=== PATIENT | male | born 1950 | race Caucasian/White ===

== ENCOUNTER 2020-10-27 14:22 | Emergency (ER) | payer OTHER ==
--- OUTSIDE RECORDS SUMMARY | 2020-10-27 14:26 | XMS REPORT | Continuity of Care Document ---
:1950 Author Organization [facility] t Address [address] [place] [address] Care Team Providers Name Role Phone Campbell SOTO, Lainey Primary Care Physician Anderson MONTENEGRO Attending Clinician Unavailable Art Dukes MA Attending Clinician Unavailable Carolynn SOTO Attending Clinician Michoacano SOTO C. Attending Clinician Travis Salas Attending Clinician Dagmar SOTO Attending Clinician Vanessa XIONG Attending Clinician Unavailable Kimberly SOTO, P. Attending Clinician Astrid SOTO Attending Clinician Debi CROCKETT Attending Clinician Avtar SOTO Attending Clinician Isac MONTENEGRO Attending Clinician Unavailable VINCE Attending Clinician Unavailable HERRERA Attending Clinician Unavailable Attending Clinician Unavailable PROSPER Attending Clinician Unavailable Ashish Attending Clinician CAROLYNN Admitting Clinician Unavailable Admitting Clinician Unavailable PROSPER Admitting Clinician Unavailable Payers Payer Name Policy Type Policy Effective Date Expiration Source Number Date CIGNA [id number] 2020 [place] [facility] 00:00:[address] [facility] [id number] 2020-Pr esentHMO Problems Condition Condition Condition Status Onset Resolution Last Treating Co mments Source Name Details Category Date Date Treatment Clinician Date IVC IVC Disease Active Overview: [place] (inferior (inferior 3-12 Formattin M ethodi vena cava vena cava 00:00: g of this s t obstructio obstructio 00 note n) n) might be different from the original. Added automatic ally from request for surgery [id number] Leg edema Leg edema Disease Active Overview: [place] 3-12 Formattin Methodi 00:00: g of this st 00 note might be different from the original. Added automatic ally from request for surgery [id number] Vena cava Vena cava Disease Active 2018-07 Jorge ston obstructio obstructio 2-16 Me thodi n, n, 00:00: st inferior inferior 00 Vena cava, Vena cava, Disease Active 2018-07 [place] inferior, inferior, 2-09 Meth hiren obstructio obstructio 00:00: st n syndrome n syndrome 00 Acute deep Acute deep Disease Active 2018-07 Overview : [place] vein vein -08 Formattin Methodi thrombosis thrombosis 00:00: g of this st (DVT) of (DVT) of 00 note femoral femoral might be vein of vein of different right right from the lower lower original. extremity extremity Added automatic ally from request for surgery [id number] DVT (deep DVT (deep Disease Active Jorge ston venous venous 04-11 Methodi thrombosis thrombosis 00:00: st ) ) 00 Urinary Urinary Disease Active 2017-07 [place] tract tract 08-17 Methodi infection infection 00:00: st associated associated 00 with with indwelling indwelling urethral urethral catheter catheter Asthma Asthma Disease Active 2017-07 [place] 08-10 Methodi 00:00: st 00 DM DM Disease Active 2016-07 [place] (diabetes (diabetes 0-19 Meth hiren mellitus) mellitus) 00:00: st 00 Venous Venous Disease Active 2016-07 Last [place] insufficie insufficie 0-19 Assessmen Methodi ncy ncy 00:00: t & Plan: st 00 Formattin g of this note might be different from the original. Patient with symptomat ic venous insuffici ency. We discussed the etiology of venous disease in terms of obstructi on and reflux. We used a wall anatomica l chart to explain the various venous segments of involveme nt. The normal venous function and disorders of valvular reflux was discussed as well. Treatment options including venous stenting or reconstru ction, venous ablation vs. stripping , phlebecto mies, sclerothe rapy and compressi on treatment were all discussed . We discussed problems with persisten t or recurrent symptoms. Risks including bleeding, DVT, nerve injury, infection , hematomas , and scarring we all covered.D uplex reviewed by me shows valvular reflux of R CFV, femoral, small saphenous , and great saphenous (above and below knee) veins. ABIs and TBIs are WNL.No intervent ion needed at this time. Plan to resume knee-high compressi on stockings . Refer to Dr. Henson for RLE numbness and paraesthe gary.RTC prn. Benign Benign Disease Active [place] nodular nodular 12-26 Methodi prostatic prostatic 00:00: st hyperplasi hyperplasi 00 a with a with lower lower urinary urinary tract tract symptoms symptoms Benign Benign Disease Active [place] non-nodula non-nodula 12-18 Vt thodi r r 00:00: st prostatic prostatic 00 hyperplasi hyperplasi a with a with lower lower urinary urinary tract tract symptoms symptoms Low back Problem Active 2009-072017-07-27 Mem oria pain 2-14 02:55:46 l (disorder) Low back 00:00: He rmann pain 00 (disorder) Active 07/02/2010 Problem 07/27/2017 Data migrated from [facility] on 03/13/15. [facility] Lumbar Problem Active 2009-072017-07-27 Memor ia radiculopa 2-14 02:55:46 l thy Lumbar 00:00: [place] (disorder) radiculopa 00 thy (disorder) Active 07/02/2010 Problem 07/27/2017 Data migrated from [facility] on 03/13/15. [facility] Spinal Problem Active 2009-072017-07-27 Memor ia stenosis 2-14 02:55:46 l of lumbar Spinal 00:00: Tisha nn region stenosis 00 (disorder) of lumbar region (disorder) Active 07/02/2010 Problem 07/27/2017 [facility] 03[facility]13[facility]15. [facility] Numbness Problem Active 2017-07-27 Mem oria of lower 02:55:46 l limb Numbness Rudy n (finding) of lower limb (finding) Active Problem 07/27/2017 [facility] Simple Problem Active 2017-07-27 Memor ia obesity 02:55:46 l (disorder) Simple Herm antony obesity (disorder) Active Problem 07/27/2017 [facility] History of Past Illness Condition Condition Condition Status Onset Resolution Last Treating Co mments Source Name Details Category Date Date Treatment Clinician Date Other Problem 2017-04-09 2017-04-09 M emoria specified 04-06 05:11:23 05:11:23 l soft Other 05:00: [place] tissue specified 00 disorders soft tissue disorders 04/06/2017 04/09/2017 [facility] Other Problem 2017-04-09 2017-04-09 M emoria specified 04-06 05:11:23 05:11:23 l joint Other 05:00: [place] disorders, specified 00 right knee joint disorders, right knee 04/06/2017 04/09/2017 [facility] Allergies, Adverse Reactions, Alerts Allergy Allergy Status Severity Reaction(s) Onset Inactive Treating Comm ents Source Name Type Date Date Clinician No Known DA Active U 2019-0 [facility] 12-[facility] s 00:00: [address] No Known DA Active U 2018-0 [facility] Allergie 11-25 s 00:00: [address] No Known DA Active U 2018-0 [facility] Allergie 11-23 s 00:00: [address] No Known DA Active U 2007-0 [facility] Contrast 01-04 [place] Allerg[facility] 00:00: [address] No Known DA Active U 2007-0 [facility] Drug 01-04 [place] Allerg[place] 00:00: [address] No Known DA Active U 2007-0 [facility] Food - [place] Allerg[place] 00:00: [address] No Known DA Active U 2007-0 [facility] Other 01-04 [place] Allergie 00:00: [address] Family History Family Member Diagnosis Comments Start Date Stop Date Source Natural father Old age [place] [facility] Natural mother Old age [facility] Social History Social Habit Start Date Stop Date Quantity Comments Source History of tobacco Cigarette Smoker [place] use [facility] History [facility] Alcohol Std Drinks Method ist History [facility] Alcohol Binge [facility] Exposure to Not sure [place] SARS-CoV-2 (event) Method ist Cigarettes smoked 2020-10-18 2020-10-18 [place] current (pack per 00:00:00 00:00:[address] day) - Reported Cigarette 2020-10-18 2020-10-18 [place] pack-years 00:00:00 00:00:00 [facility] Tobacco use and 2020-10-18 2020-10-18 Never used [place] exposure 00:00:00 00:00:00 [facility] Alcohol intake 2020-10-18 2020-10-18 Lifetime [place] 00:00:00 00:00:00 non-drinker [facility] (finding) History [facility] 2019-05-30 2019-05-30 1 [place] Alcohol Frequency 00:00:00 00:00:[address] Tobacco Comment 2019-05-30 2019-05-30 quit 30 yrs ago [place] 00:00:00 00:00:00 [facility] Social History 2017-04-06 2017-04-06 [facility] 19:32:49 19:32:49 Sex Ass[birth year] At [birth year] [place] 00:00:00 00:00:00 [facility] Smoking Status Start Date Stop Date Source Former smoker 2020-10-18 00:00:00 2020-10-18 00:00:00 [place] [facility] Medications Ordered Filled Start Stop Current Ordering Indication Dosage Frequency Signature Comments Components Source Medication Medication Date Date Medication? Clinician (SIG) Name Name pantoprazol Yes 40mg QD Take 1 [place] 4-06 tablet (40 Methodi (Protonix) 00:00: mg total) st 40 MG EC 00 by mouth tablet daily. rivaroxaban Yes 20mg Take 20 mg [place] (XARELTO) 3-25 by mouth. Metho di 20 mg 17:26: st tablet 26 acetaminoph 2020- No acute pain 1{tbl} Q4H Take 1 [place] en-codeine 3-25 04-01 tablet by Met kowalski (TYLENOL 00:00: 23:[address] WITH 00 :00 every 4 CODEINE #3) (four) 300-30 mg hours as per tablet needed for moderate pain for up to 7 days .acute pain. clopidogreL 2021- Yes 75mg QD Take 1 Jorge ston (PLAVIX) 75 3-11 03-11 tablet (75 M ethodi mg tablet 00:00: 23:59 mg total) st 00 :00 by mouth daily. mirabegron Yes 50mg QD Take 1 [place] (Myrbetriq) 2-23 tablet (50 Me thodi 50 mg 00:00: mg total) st tablet 00 by mouth extended daily. release 24 hr oxybutynin Yes 5mg QD Take 1 [place] (DITROPAN) 2-23 tablet (5 Meth hiren 5 MG tablet 00:00: mg total) s t 00 by mouth daily. doxycycline 2020- No 100mg Q.5D Take 1 [place] (VIBRAMYCIN 08-21 capsule Meth hiren ) 100 MG 00:00: 23:59 ([address] capsule 00 :00 total) by mouth 2 (two) times a day for 7 days. gentamicin 2020- No [id number] Apply Osman (GARAMYCIN) 08-21 [id number] topically Methodi 0.1 % 00:00: 23:59 3D 3 (three) st ointment 00 :00 times a day for 7 days. Apply to right 5th toe ulcer tolterodine 2020- No 4mg QD Take 1 Jorge ston [place] (Detrol 02-16-12 capsule (4 Me thodi LA) 4 MG 24 00:00: 00:00 mg total) st hr capsule 00 :00 by mouth daily. mirabegron 2020- No 50mg QD Take 1 [place] (Myrbetriq) 7 03-12 tablet (50 M ethodi 50 mg 00:00: 00:00 mg total) st tablet 00 :00 by mouth extended daily. release 24 hr clopidogrel 2020- No Vena cava, 75mg QD Take 1 [place] (PLAVIX) 75 1-15 01-14 inferior, tablet (75 Methodi mg tablet 00:00: 23:59 obstruction mg total) st 00 :00 syndrome by mouth daily. oxybutynin No 5mg QD Take 1 [place] (DITROPAN) 07-26 tablet (5 Met hodi 5 MG tablet 00:00: 00:00 mg total) st 00 :00 by mouth daily. pantoprazol 40mg QD Take 1 Jorge ston e 07-22 04-06 tablet (40 Methodi (PROTONIX) 00:00: 00:00 mg total) s t 40 MG EC 00 :00 by mouth tablet daily. mupirocin 2018-07 APPLY [place] (BACTROBAN) 08-22 OINTMENT Met hodi 2 % 00:00: 00:[address] ointment 00 :00 TO AFFECTED AREA ON RIGHT FOOT TOES THREE TIMES DAILY FOR 14 DAYS acetaminoph 2018-07 No 1{tbl} Take 1 [place] en-codeine 07-23 03-12 tablet by Met hodi (TYLENOL 00:00: 00:[address] WITH 00 :00 CODEINE #3) 300-30 mg per tablet primidone No 50mg Q.5D Take 50 mg [place] (MYSOLINE) 5-18 03-25 by mouth 2 Me thodi 50 MG 00:00: 00:00 (two) st tablet 00 :00 times a day. Cephalexin Yes 500 mg = 1 M emoria 500 MG Oral 9-18 cap, PO, l Capsule 20:53: BID, X 7 Rudy n [Keflex] 00 day, # 14 cap, 0 Refill(s) Cephalexin Yes 500 mg = 1 M emoria 500 MG Oral 9-18 cap, PO, l Capsule 20:53: BID, X 7 Rudy n [Keflex] 00 day, # 14 cap, 0 Refill(s) Saline No Notes: Memoria Flush 0.9% 9-18 preservati l 19:32: ve free. Saline No Notes: Memoria Flush 0.9% 9-18 preservati l 19:32: ve free. Immunizations Ordered Immunization Filled Immunization Date Status Commen ts Source Name Name [facility] COVID-19 MRNA 2020-09-15 Completed [place] VACCINATION 00:00:00 [facility] PFIZER COVID-19 MRNA 2020-08-25 Completed [place] VACCINATION 00:00:00 [facility] FLUCELVAX QUAD PF 2019-04-18 Completed [place] 00:00:00 [facility] Pneumococcal 2019-04-18 Completed [place] Conjugate 13-Valent 00:00:00 Metho dist Vital Signs Vital Name Observation Time Observation Value Comments Source Systolic blood 2020-10-11 17:15:00 108 mm[Hg] [place] [facility] pressure Diastolic blood 2020-10-11 17:15:00 62 mm[Hg] Sadaf on [facility] pressure Heart rate 2020-10-11 17:15:00 80 /min [place] [facility] Body temperature 2020-10-11 17:15:00 36.11 Allison [place] [facility] Respiratory rate 2020-10-11 17:15:00 17 /min Brennan quintanilla [facility] Oxygen saturation in 2020-10-11 17:15:00 97 /min [place] [facility] Arterial blood by Pulse oximetry Body height 2020-10-11 09:14:00 170.2 cm [place] [facility] Body weight 2020-10-11 09:14:00 105.688 kg [place] [facility] BMI 2020-10-11 09:14:00 36.49 kg/m2 [place] [facility] Weight 2017-07-24 19:44:00 [facility] Heart Rate 2017-07-24 19:44:00 [facility] [place] Systolic (mm Hg) 2017-07-24 19:44:00 German rial [place] Diastolic (mm Hg) 2017-07-24 19:44:00 Mem orial Sg Systolic (mm Hg) 2017-04-06 21:21:00 German rial [place] Diastolic (mm Hg) 2017-04-06 21:21:00 Mem orial Sg Temperature Oral (F) 2017-04-06 21:21:00 98 F [facility] [place] Respitory Rate 2017-04-06 21:21:00 Memori al Sg Heart Rate 2017-04-06 21:21:00 [facility] [place] Height 2017-04-06 19:13:00 170.18 cm [facility] [place] BMI Calculated 2017-04-06 19:13:00 Memori al [place] Weight 2017-04-06 19:13:00 [facility] Sg Heart Rate 2017-04-06 19:13:00 [facility] [place] Respitory Rate 2017-04-06 19:13:00 Rosa garcia [place] Systolic (mm Hg) 2017-04-06 19:13:00 German thomas [place] Diastolic (mm Hg) 2017-04-06 19:13:00 Mem orial Sg Procedures Procedure Date / Time Performing Clinician Source Performed POC BLOOD GAS, ARTERIAL 2020-10-11 12:38:00 Yariel Pradhan AND LYTES CV HYBRID OR FLUOROSCOPY 2020-10-11 12:33:48 Yariel Pradhan ARTERIAL LINE 2020-10-11 12:27:06 Hitesh Ibanez [facility] CO AN ELECTIVE 2020-10-11 12:17:00 Hitesh Ibanez [facility] ENDOTRACHEAL AIRWAY VENOGRAPHY, UPPER OR LOWER 2020-10-11 12:09:00 Yariel Pradhan EXTREMITY, UNILATERAL PARTIAL THROMBOPLASTIN 2020-10-11 12:03:00 Denzel Leavitt TIME (PTT) PROTHROMBIN TIME WITH INR 2020-10-11 12:03:00 Raina Leavitt US ANKLE BRACHIAL INDEX 2020-10-11 09:41:00 Yariel Pradhan US DUPLEX ARTERIAL LOWER 2020-10-11 09:31:00 Yariel Pradhan EXTREMITY RIGHT URINE CULTURE 2020-10-08 13:37:00 Yariel Pradhan XR CHEST 2 VW 2020-10-08 13:06:00 Denzel Leavitt HC COMPLETE BLD COUNT 2020-10-08 12:35:00 Yariel Pradhan W/AUTO DIFF ESTIMATED GFR 2020-10-08 12:35:00 Yariel Pradhan TYPE AND SCREEN 2020-10-08 12:35:00 Denzel Leavitt COMPREHENSIVE METABOLIC 2020-10-08 12:35:00 Yariel Pradhan PANEL URINALYSIS SCREEN AND 2020-10-08 12:07:00 Bismuth, Yariel [place] [facility] MICROSCOPY, WITH REFLEX TO CULTURE ECG PRE/POST OP 2020-10-08 11:35:29 CarolynnYariel Osman Meth [facility]ist COVID-19 QUALITATIVE PCR 2020-10-08 11:26:00 CarolynnYarielu ston [facility] US DUPLEX VENOUS LOWER 2020-08-21 16:31:42 CarolynnYariel [place] [facility] EXTREMITY RIGHT PROSTATE SPECIFIC ANTIGEN 2020-02-14 11:21:00 EkerDanny espana [place] [facility] Plan of Care Planned Activity Planned Date Details Comments Source Future Scheduled 2021-02-17 INFLUENZA VACCINE [place] [facility] Test 00:00:00 [code = INFLUENZA VACCINE] Future Scheduled 2019-06-13 65+ PNEUMOCOCCAL [place] [facility] Test 00:00:00 VACCINE (1 of 2 - PPSV23) [code = 65+ PNEUMOCOCCAL VACCINE (1 of 2 - PPSV23)] Future Scheduled 2000 COLONOSCOPY SCREENING [place] [facility] Test 00:00:00 [code = COLONOSCOPY SCREENING] Future Scheduled 2000 SHINGLES VACCINES (#1) [place] [facility] Test 00:00:00 [code = SHINGLES VACCINES (#1)] Future Scheduled 1968 Hepatitis C screening [place] [facility] Test 00:00:00 (procedure) [code = 881831891] Future Scheduled 1960 DIABETES: RETINAL EYE [place] [facility] Test 00:00:00 EXAM [code = DIABETES: RETINAL EYE EXAM] Future Scheduled 1960 DIABETIC FOOT EXAM [place] [facility] Test 00:00:00 [code = DIABETIC FOOT EXAM] Future Scheduled 1960 URINE MICROALBUMIN [place] [facility] Test 00:00:00 [code = URINE MICROALBUMIN] Encounters Start End Encounter Admission Attending Care Care Encounter Source Date/Time Date/Time Type Type Clinicians Facility Department ID 2018-11-23 Outpatient [facility] CAR [id number] [facility] 08:26:33 2020-10-11 2020-10-11 Outpatient JOSE [facility] [id number] [place] 00:00:00 00:00:00 YARIEL [address] 2020-10-11 2020-10-11 Outpatient MAGANRUST [facility] [id number] [place] 00:00:00 00:00:00 YARIEL 124 Method i 2020-10-11 2020-10-11 Outpatient BISMUTH, [facility] [id number] [place] 00:00:00 00:00:00 YARIEL 973 Method i 2020-10-11 2020-10-11 Outpatient BISMUTH, [facility] [id number] [place] 00:00:00 00:00:00 YARIEL 440 Method i 2020-10-08 2020-10-08 Outpatient BISMUTH, [facility] [id number] [place] 00:00:00 00:00:00 YARIEL 203 Method i 2020-10-08 2020-10-08 Outpatient BISMUTH, [facility] [id number] [place] 00:00:00 00:00:00 YARIEL 403 Method i 2020-10-08 2020-10-08 Outpatient ATHANASSIOU [facility] [id number] [place] 00:00:00 00:00:00 , DENZEL 645 Meth hiren 2020-09-27 2020-09-27 Outpatient BISMUTH, [facility] [id number] [place] 00:00:00 00:00:00 YARIEL 970 Method i 2020-09-15 2020-09-15 Outpatient ROBBEN, [facility] H [id number] [place] 00:00:00 00:00:00 PEEWEE 023 Me thodi 2020-09-11 2020-09-11 Outpatient EKERUO, [facility] H [id number] [place] 00:00:00 00:00:00 DANNY 345 Method i 2020-08-30 2020-08-30 Outpatient BISMUTH, [facility] [id number] [place] 00:00:00 00:00:00 YARIEL 230 Method i 2020-08-25 2020-08-25 Outpatient [facility] [id number] [place] 00:00:00 00:00:00 619 Method i 2020-08-21 2020-08-21 Outpatient [facility] [id number] [place] 00:00:00 00:00:00 967 Method i 2020-08-21 2020-08-21 Outpatient [facility] [id number] [place] 00:00:00 00:00:00 EMDUNDO POST 164 Me thodi 2020-07-15 2020-07-15 Emergency Nova, [facility] [id number] 18:28:00 23:48:00 Bong Johnston [id number] [place] [id number] [place] [id number] 2020-02-14 2020-02-14 Outpatient EKERUO, [facility] [id number] [place] 00:00:00 00:00:00 DANNY 244 Method i 2020-02-14 2020-02-14 Outpatient EKERUO, [facility] [id number] [place] 00:00:00 00:00:00 DANNY 423 Method i 2020-02-09 2020-02-09 Outpatient [facility] CAR [id number] [facility] 11:27:00 11:27:00 2019-09-27 2019-09-27 Outpatient IMPERIAL-AU [facility] [id number] [place] 00:00:00 00:00:00 EDMUNDO POST 651 Me thodi 2019-09-21 2019-09-21 Outpatient IMPERIAL-AU [facility] [id number] [place] 00:00:00 00:00:00 EDMUNDO POST 589 Me thodi 2019-09-21 2019-09-21 Outpatient IMPERIAL-AU [facility] [id number] [place] 00:00:00 00:00:00 EDMUNDO POST 592 Me thodi 2019-08-11 2019-08-11 Outpatient [facility] CAR [id number] [facility] 11:10:00 11:10:00 2019-07-08 2019-07-09 Emergency KORTNEY [facility] [id number] [place] 00:00:00 00:00:00 847 Method i 2019-07-04 2019-07-05 Outpatient BISMUTH, [facility] [id number] [place] 00:00:00 00:00:00 YARIEL 266 Method i 2019-05-31 2019-05-31 Outpatient BISMUTH, [facility] [id number] [place] 00:00:00 00:00:00 YARIEL 271 Method i 2019-05-30 2019-05-30 Outpatient ATHANASSIOU [facility] [id number] [place] 00:00:00 00:00:00 , DENZEL 044 Meth hiren 2019-05-05 2019-05-05 Outpatient MH CAR [id number] [facility] 10:37:00 10:37:00 2019-05-03 2019-05-04 Emergency SILVERMAN, [facility] [id number] [place] 00:00:00 00:00:00 768 Method i 2019-04-22 2019-04-27 Inpatient ECHEVERRIA, [facility] [id number] [place] 00:00:00 00:00:00 XENA 995 Method i 2019-04-11 2019-04-18 Inpatient ISHFAQ, [facility] [id number] [place] 00:00:00 00:00:00 ARAMBULA 756 Metho di 2018-11-18 2018-11-18 Outpatient [facility] CAR [id number] [facility] 08:52:00 08:52:00 2017-07-24 2017-07-24 Outpatient MHMISCHER MHMISCHER [id number] 13:00:00 23:59:59 2017-07-24 2017-07-24 Outpatient MHMISCHER MHMISCHER [id number] 13:00:00 23:59:59 2017-07-22 2017-07-23 Outpatient MHMISCHER MHMISCHER [id number] 11:58:00 23:59:59 2017-07-22 2017-07-23 Outpatient MHMISCHER MHMISCHER [id number] 11:58:00 23:59:59 2017-04-06 2017-04-06 Outpatient Ashish [id number] 14:12:00 16:32:00 Rogerio [id number] 5.120 2017-04-06 2017-04-06 Outpatient Ashish [id number] 14:12:00 16:32:00 Rogerio [id number] 5.120 Results Test Test Test Results Result Source Description Time Comments Comments Hybrid or 2020-09- See operative report for [facility] fluoroscopy 25 the same day [facility] 12:33:49 Arterial line 2020-09- Hitesh Ibanez CRNA [place] [id number] 10/11/2020 12:28 Methodis t 12:27:06 PMArterial line Performed by: anesthesiologistAnesthesi ologist: Tal Ríos Jr., SANDYuthorized by: Tal Ríos Jr., MD Pre-procedure: patient identified, IV checked, site and side verified, risks and benefits discussed, procedure verified, surgical consent complete, patient position confirmed, monitors and equipment checked, pre-op evaluation complete and timeout performed prior to procedure MSBT: antiseptic used, all elements of maximal sterile barrier technique followed, hand hygiene performed, cap/gown used by other personnel and solutions labeled Indications: Indications: multiple ABGs and hemodynamic monitoring Anesthesia: Anesthesia: GeneralProcedure Details: Arterial Line placement: Placed post induction Line placement site: RadialLine placement side: Right Arterial line gauge: 20 GNumber of attempts: 1Ultrasound guidance used: No Post-procedure: Post-procedure: Sterile dressing applied Post procedure circulation, sensation, movement: Normal and unchanged Patient tolerance: Patient tolerated the procedure well with no immediate complications Airway 2020-09- Hitesh Ibanez CRNA [place] [id number] 10/11/2020 12:46 PMAirway [facility] 12:17:00 Date/Time: 10/11/2020 12:17 PM Location: OR Performed by: LATA/CHERYLnesthesiologist: Tal Ríos Jr., MDResident/RECEIVER DISPATCHER/AA: Hitesh Ibanez CRNAAuthorized by: Tal Ríos Jr., MD Urgency: ElectiveDifficult Airway: No Preoxygenated with 100% O2: Yes C-spine Precautions Maintained Throughout: Yes Mask Ventilation: Assisted maskFinal Airway Type: Endotracheal airwayFinal Endotracheal Airway: ETTCuffed: Yes Technique Used: Direct laryngoscopyInsertion Site: OralBlade Type: MillerLaryngoscope Blade/Videolaryngoscope Blade Size: 2ETT Size (mm): 8.0Cuff at minimum occlusion pressure: Yes Measured from: LipsETT to Lips (cm): 22Placement Verified by: CO2 detection, direct visualization and equal breath sounds Laryngoscopic view: Grade I - full view of glottisRapid Sequence Induction (RSI): No Modified RSI: No Number of Attempts at Approach: 1 ECG Pre/Post Op 2020-10-08 19:40:58 Test Item Value Reference Range Interpretation Comme nts Ventricular rate (test code = 253) 83 Atrial rate (test code = 255) 83 CO interval (test code = 266) 180 QRSD interval (test code = 260) 106 QT interval (test code = 264) 374 QTC interval (test code = 265) 439 P axis 1 (test code = 267) 66 QRS axis 1 (test code = 268) -89 T wave axis (test code = 270) 70 EKG impression (test code = 273) Normal sinus rhythm-Left axis deviation-Pulmonary disease pattern-Abnormal ECG-In automated comparison with ECG of 30-MAY-2019 16:41,-Incomplete right bundle branch block is no longer present- [place] [facility] Chest 2 [id number] 14:03:33Hm Interface, Radiology Results Incoming - 10/08/2020 2:06 PM CDT EXAMINATION: XR CHEST 2 VWCLINICAL HISTORY: 69 years Male I87.1 Compression of vein, R60.0 Localized edema, surgeryCOMPARISON: 05/30/2019IMPRESSION:1.The cardiomediastinal silhouette is normal.2.No evidence pulmonary edema. No focal consolidations. Minimal atelectasis right lung base.3.Regional skeletal structures are diffusely osteopenic.[facility]-ZO57CBYTXwkckgo MethodistProstate specific [id number] 09:23:00 Test Item Value Reference Range Interpretation Comments PSA (test 0.5 ng/mL See_Comment The total PSA v alue code = from this assay system 2857-1) is standardized against the WHO standar d. The test result janet l be approximately 2 0% lower when compared t o the equimolar-stand ardized total PSA ([employer] [facility]). Kristofer rison of serial PSA resu lts should be inter preted with this fact in mind. This test was p erformed using the [employer] chemiluminescen t method. Values obtained from different assay methods cannot be usedinterchange ably. PSA levels, reg ardless ofvalue, should not be interpreted as absoluteevidenc e of the presence or abs ence of disease. [Auto mated message] The sy stem which generated this result transmit caio reference range : < OR = 4.0. The refere nce range was not u sed to interpret this result as normal/abnor mal. RAC (test Performing code = RAC) Organization Information: Site ID: [id number] [place] [facility] Address: [address] [place] [place] [id number] Director: Alfonso Strange [place] MethodistCOMPREHENSIVE METABOLIC [id number] 13:44:00 Test Item Value Reference Range Interpretation Comments SODIUM (test code = NA) 142 MMOL/L 137-145 N POTASSIUM (test code = 4.3 MMOL/L 3.5-5.1 N K) CHLORIDE (test code = 103 MMOL/L 98-107 N CL) CARBON DIOXIDE (test 30 MMOL/L 22-30 N code = CO2) GLUCOSE (test code = 93 MG/DL 74-106 N GLU) BLOOD UREA NITROGEN 15 MG/DL 9-20 N (test code = BUN) GLOMERULAR FILTRATION > 60 Report ing units: RATE (test code = GFR) ml/mi n/1.73 m2 (Modified MDRD Formula)Referen ce Range: > or = 6 0 ml/min/1.73 m2 CREATININE (test code = 0.70 MG/DL 0.66-1.25 N CREAT) TOTAL PROTEIN (test 7.5 G/DL 6.2-7.6 N code = PROT) ALBUMIN (test code = 4.0 G/DL 3.5-5.0 N ALB) CALCIUM (test code = 9.6 MG/DL 8.4-10.2 N CA) BILIRUBIN TOTAL (test 0.3 MG/DL 0.2-1.3 N code = BILT) SGOT/AST (test code = 22 UNITS/L 17-59 N AST) SGPT/ALT (test code = 19 UNITS/L 21-72 L ALT) ALKALINE PHOSPHATASE 83 UNITS/L 38-126 N (test code = ALKP) PROTHROMBIN [id number] 13:32:00 Test Item Value Reference Range Interpretation Comments PROTHROMBIN TIME 10.1 SECONDS 9.6-11.6 N PATIENT (test code = PTP) INTERNATIONAL NORMAL 1.0 0.8-1.1 N The INR is to be RATIO (test code = used only for INR) monitoring oral anticoagulantth erap y. INDICATION I NR VALUE ---- ---- ---- -------1. Prophylaxis, de ep venous thrombos is, including hig h risk surgery. 2.0 - 3.0 2. Prophylaxis, de ep venous thrombos is, hip surgery, treatment for d eep venous thrombosis or pulmonary prevention of systemic emboli sm in patients wit h valvular heart disease, atrial fibrillation, tissue heart va lve, or acute myocar dial infarction. 2.0 - 3 .0 3. Mechanical prosthesis hear t valves, recurrent syste tommy embolism. 3.0 - 4.5 PTT [id number] 13:32:00 Test Item Value Reference Range Interpretation Comments PTT ACTIVATED (test code = APTT) 27.1 SECONDS 22.0-33.0 N CBC W/AUTO [id number] 13:22:00 Test Item Value Reference Range Interpretation Comments WHITE BLOOD CELL (test code = 8.0 K/MM3 3.8-9.8 N WBC) RED BLOOD CELL (test code = 4.94 M/MM3 3.95-5.67 N RBC) HEMOGLOBIN (test code = HGB) 13.7 G/DL 12.4-16.7 N HEMATOCRIT (test code = HCT) 43.6 % 35.9-49.5 N MEAN CELL VOLUME (test code = 88 fL 81.7-96.1 N MCV) MEAN CELL HGB (test code = MCH) 27.7 pg 27.6-33.2 N MEAN CELL HGB CONCETRATION 31.4 % 32.9-35.5 L (test code = MCHC) RED CELL DISTRIBUTION WIDTH 17.0 % 12.1-15.2 H (test code = RDW) PLATELET COUNT (test code = 346 K/MM3 129-368 N PLT) MEAN PLATELET VOLUME (test code 8.8 fl 7.4-10.4 N = MPV) NEUTROPHIL % (test code = NT%) 71.4 % 43-75 N IMMATURE GRANULOCYTE % (test 0.5 % 0.0-2.0 N code = IG%) LYMPHOCYTE % (test code = LY%) 15.0 % 14-44 N MONOCYTE % (test code = MO%) 9.5 % 4-13 N EOSINOPHIL % (test code = EO%) 3.2 % 0-6 N BASOPHIL % (test code = BA%) 0.4 % 0-2 N NUCLEATED RBC % (test code = 0.0 % 0-1.0 N NRBC%) NEUTROPHIL # (test code = NT#) 5.74 K/mm3 2.0-7.6 N IMMATURE GRANULOCYTE # (test 0.04 x10 3/uL 0-0.03 H code = IG#) LYMPHOCYTE # (test code = LY#) 1.21 K/mm3 1.0-3.8 N MONOCYTE # (test code = MO#) 0.76 K/mm3 0.1-0.8 N EOSINOPHIL # (test code = EO#) 0.26 K/mm3 0.0-0.2 H BASOPHIL # (test code = BA#) 0.03 K/mm3 0.0-0.2 N NUCLEATED RBC # (test code = 0.00 K/mm3 0.0-0.1 N NRBC#) PROTHROMBIN [id number] 16:01:00 Test Item Value Reference Range Interpretation Comments PROTHROMBIN TIME 10.5 SECONDS 9.6-11.6 N PATIENT (test code = PTP) INTERNATIONAL NORMAL 1.0 0.8-1.1 N The INR is to be RATIO (test code = used only for INR) monitoring oral anticoagulantth erap y. INDICATION I NR VALUE ---- ---- ---- -------1. Prophylaxis, de ep venous thrombos is, including hig h risk surgery. 2.0 - 3.0 2. Prophylaxis, de ep venous thrombos is, hip surgery, treatment for d eep venous thrombosis or pulmonary prevention of systemic emboli sm in patients wit h valvular heart disease, atrial fibrillation, tissue heart va lve, or acute myocar dial infarction. 2.0 - 3 .0 3. Mechanical prosthesis hear t valves, recurrent syste tommy embolism. 3.0 - 4.5 Comments to Fabric Inspector: TAKES XARELTOPTT [id number] 16:01:00 Test Item Value Reference Range Interpretation Comments PTT ACTIVATED (test code = APTT) 30.4 SECONDS 22.0-33.0 N Comments to Fabric Inspector: TAKES XARELTOCARDIAC [id number] 19:37:00 <0.02[facility]ARDIAC [id number] 19:37:007.4[facility] CARDIAC KTNQGCG8093-30-46 19:37:71773Zjbmnypf HermannCARDIAC ZKEHVRI9047-29-00 19:37:003.4[facility]annCHEM JLVMX8730-34-14 19:37:001.1[facility]annCHEM KJAUE5964-03-68 19:37:008.3[facility]annCHEM DNHWA2577-14-42 19:37:003.6 [facility] [id number] 19:37:0021[facility]annCHEM PANEL 2017-04-06 19:37:0093[facility]annCHEM RNIYR7716-19-41 19:37:000.4[facility]annCHE[facility] MTMYU3501-43-18 19:37:00251Xxjfingj [facility]annCHEM WKPPV0953-53-53 19:37:0031[facility]annCHEM UNRLY9690-67-81 19:37:0040[facility]annCHE[facility] GZBCX3900-39-11 19:37:007.4[facility]annCHE[facility] JNOKF9094-43-28 19:37:003.8 [facility] VUCRH9712-46-19 19:37:008.9[facility]annCHEM PANEL 2017-04-06 19:37:0028[facility]annCHEM TYPKL2357-58-70 19:37:27602Jxqieyjz [facility]CHE[facility] JBOUT1731-01-82 19:37:004.3[facility]annCHE[facility] [id number] 19:37:51910Lnkurgws HermannCHEM MHWTK9168-06-99 19:37:000.80[facility]annCHEM WTCOB9486-23-76 19:37:0017[facility]annCHEM ODGFD1424-74-29 19:37:89838 [facility] PkjuufrISLPVDWZZD0742-05-86 19:37:006.5[facility]annHEMATOLOGY 2017-04-06 19:37:000.6[facility] WvunuuqTBJEUWZWDY4338-07-60 19:37:001.6[facility] KyftjxtGTGWADOCGK2925-85-68 19:37:000.3[facility] EiwincfOJIAVYQZDX2625-88-72 19:37:000.6[facility] YcxxmrjDPSDDRKAMB2083-74-96 19:37:006.1[facility] Sg LRVAAFRIVC3810-90-28 19:37:003.0[facility] UkeuzdrFSJMWVAYEH8694-79-91 19:37:000.1 [facility] UnkmnrpVIOKWQNGST4735-79-94 19:37:0018.2[facility]annHEMATOLOGY 2017-04-06 19:37:0072.1[facility] TrpjjadGHEBJLCIZN9986-69-97 19:37:00 Test Item Value Reference Range Interpretation Comments aPTT (test code = aPTT) 31.4 s 22.9-35.8 [facility] OaewhveTWHBQUFBRG2297-15-68 19:37:00 Test Item Value Reference Range Interpretation Comments PROTIME (test code = PROTIME) 12.6 s 12.0-14.7 [facility] KflnfnwIHDLSXQWRC0341-75-11 19:37:000.92[facility]annHEMATOLOGY 2017-04-06 19:37:0034.4[facility] EcasuyaLYMKNZNQII7262-83-04 19:37:00 Test Item Value Reference Range Interpretation Comments MCH (test code = MCH) 31.1 pg 27.0-31.0 [facility] EtnxteyVEBDZEBDPS3786-10-49 19:37:009.0[facility]annHEMATOLOGY 2017-04-06 19:37:005.24[facility] GycpoifCCRTLVQIQC0600-73-36 19:37:14869Tpubklwi XsqyoryBKIKYPJFON2418-89-79 19:37:0014.3[facility] WwwfsxbONZMKKRZFH4937-70-43 19:37:007.3[facility] WtreyolXZBOJIIFRY9914-03-92 19:37:0090.4[facility] AKZJAIBJIL9216-59-29 19:37:0047.4[facility] EmkobtxHYEEVHNNWY2950-64-95 19:37:00 16.3[facility]annCARDIAC YQANEOM1191-98-47 19:37:00<0.02[facility] CARDIAC CQCKIUR5908-18-67 19:37:007.4[facility]annCARDIAC UWEYEUD7468-82-65 19:37:60155Eolkumuv HermannCARDIAC ASOMAZC0964-42-85 19:37:003.4[facility] CHEM YMTRC7208-88-14 19:37:001.1[facility]annCHEM SFYBT9487-90-86 19:37:008.3 [facility]annCHE[facility] GZXAQ0088-37-75 19:37:003.6[facility]annCHEM PANEL 2017-04-06 19:37:0021[facility]annCHEM UQIBF7412-39-98 19:37:0093[facility]annCHEM BKEGO0513-79-46 19:37:000.4[facility]annCHEM JRSVW5549-64-10 19:37:84052Yjqhqyem HermannCHEM RKMFX1644-40-25 19:37:0031[facility]annCHEM PWIXB0733-81-92 19:37:0040[facility]annCHEM ZOSWL6183-47-87 19:37:007.4 [facility]annCHE[facility] DXXZO9604-36-69 19:37:003.8[facility]annCHEM PANEL 2017-04-06 19:37:008.9[facility]annCHEM JJHNE8373-49-18 19:37:0028[facility] HermannCHEM OFMEL3479-04-42 19:37:26487Lwtytyvz HermannCHEM OJBPS2372-54-19 19:37:004.3[facility]annCHEM OASTT3267-82-43 19:37:54528Wbzembtp HermannCHEM MBGAW5439-77-43 19:37:000.80[facility]annCHEM DYSUJ2559-61-46 19:37:0017 [facility]annCHE[facility] LTKNF0395-58-80 19:37:45978Kpaaipgq HermannHEMATOLOGY 2017-04-06 19:37:006.5[facility] DpppiylLWRGKJHJEC5738-92-19 19:37:000.6[facility] MtznxtkLSJFIHSXPB6902-22-75 19:37:001.6[facility] EbgpzikJQWLVAWFMO8291-60-36 19:37:000.3[facility] LdxltqeVQHKNOFPLE7869-59-51 19:37:000.6[facility] Sg EQWOSFVGSF6689-69-00 19:37:006.1[facility] JjaptukTEGOBQJCPZ7716-62-96 19:37:003.0 [facility] LfcajxvUJWYDFOVJU7782-78-93 19:37:000.1[facility]annHEMATOLOGY 2017-04-06 19:37:0018.2[facility] UoqygdvJDJWBGLSUZ1327-16-15 19:37:0072.1[facility] LtabvuuXYPOJGFQWR3386-39-39 19:37:00 Test Item Value Reference Range Interpretation Comments aPTT (test code = aPTT) 31.4 s 22.9-35.8 [facility] HicpqjqPLIJRPAEIA1962-05-60 19:37:00 Test Item Value Reference Range Interpretation Comments PROTIME (test code = PROTIME) 12.6 s 12.0-14.7 [facility] CfjvyoyGQMWQCHAEI0899-02-10 19:37:000.92[facility]annHEMATOLOGY 2017-04-06 19:37:0034.4[facility] IvkcroaJQSOXWIETT6958-72-34 19:37:00 Test Item Value Reference Range Interpretation Comments MCH (test code = MCH) 31.1 pg 27.0-31.0 [facility] CkadmbkYPNLAJHURK2776-84-24 19:37:009.0[facility] HermannHEMATOLOGY 2017-04-06 19:37:005.24[facility] YzkhtcvWLMZRBAFMV1891-34-44 19:37:18267Xpivlqrk BrjrwitTZJSFPFDXC1352-93-87 19:37:0014.3[facility] WcqfbqqQVGFBQIKOK3935-76-63 19:37:007.3[facility] QzyngnuZYKJIRKMDG6744-13-13 19:37:0090.4[facility] XGPJCTEXSF4074-33-09 19:37:0047.4[facility] XyhzzxwWVTVZUDFBP1809-47-27 19:37:00 16.3[facility]
--- NOTE | 2020-10-27 15:59 | RAD REPORT ---
EXAM DESCRIPTION: US - Extremity Venous Uni Ltd - 10/27/2020 3:47 pm CLINICAL HISTORY: s/p vascular stenting 1-2 weeks ago;Pain COMPARISON: None. TECHNIQUE: Real-time sonographic evaluation of the right lower extremity deep venous systems was per formed. FINDINGS: Normal compressibility, flow augmentation, phasic flow and spontaneous flow are identified in the right lower extremity common femoral, superficial femoral, popliteal and posterior tibial vei ns. No intraluminal filling defects seen. Exam was limited by patient's inability to fully cooperate with the examination. IMPRESSION: No DVT in the right lower extremity.
--- NOTE | 2020-10-27 16:01 | RAD REPORT ---
EXAM DESCRIPTION: US - Lower Extremity Artery Uni Ltd - 10/27/2020 3:47 pm CLINICAL HISTORY: PAIN COMPARISON: No comparisons TECHNIQUE: Doppler evaluation of the right lower extremity arterial tree performed. Waveforms and ve locity values were obtained along with visual inspection. FINDINGS: Exam was suboptimal. Patient was unable to fully cooperate with the examination. Triphasic waveform pattern seen along the length of the right lower extremity. No occlusion or focal flow restricting lesion. No suspicious velocity value or waveform pattern. IMPRESSION: Right lower extremity arterial tree shows no significant or suspicious finding.
[2020-10-27] MEDS ORDERED: METHYLPREDNISOLONE 125 MG INJ ONE (16:28)
[2020-10-27] MEDS ORDERED: IPRATROPIUM BROM 0.5MG/2.5ML ONE (16:29)
[2020-10-27] MEDS ORDERED: ALBUTEROL 2.5 MG/3 ML NEB SOL ONE (16:29)
[2020-10-27] MEDS ORDERED: FENTANYL CITR 100 MCG/2 ML ONE (16:29)
[2020-10-27 16:38] LABS: Protime INR 1.34
[2020-10-27 16:47] LABS: Absolute Lymphocytes (CBC) 0.7 K/uL (0.7-4.9); Basophils % 0.3 % (0-1.3); Hematocrit 47.8 % (39.6-49.0); Lymphocytes % 3.3 % (15.3-44.8); MPV 8.1 fL (7.6-11.3); RBC Red Blood Cell Count 5.15 M/uL (4.33-5.43)
[2020-10-27 16:51] LABS: ALT/SGPT 29 U/L (12-78); AST/SGOT 17 U/L (15-37); Albumin 3.7 g/dL (3.4-5.0); Alkaline Phosphatase 99 U/L (45-117); BUN Blood Urea Nitrogen 10 mg/dL (7-18); Bicarbonate 29 mmol/L (21-32); Bilirubin Direct 0.1 mg/dL (0-0.2); Bilirubin Total 0.7 mg/dL (0.2-1.0); Glucose Level 109 mg/dL (74-106); Magnesium 2.1 mg/dL (1.8-2.4); NT PRO-BNP 112 pg/mL (<125); Potassium 4.1 mmol/L (3.5-5.1); Protein, Total 7.4 g/dL (6.4-8.2); Sodium Level 139 mmol/L (136-145); Troponin (Emerg Dept Use Only) < 0.02 ng/mL (0.0-0.045)
[2020-10-27 17:15] LABS: Blood Morphology Comment NOT SEEN (NOT SEEN); Platelet Estimate ADEQ
--- NOTE | 2020-10-27 17:21 | RAD REPORT ---
EXAM DESCRIPTION: RAD - Chest Single View - 10/27/2020 4:40 pm CLINICAL HISTORY: SOB COMPARISON: None TECHNIQUE: AP portable chest image was obtained 10/27/2020 4:40 pm . FINDINGS: Lungs are clear. Heart and vasculature are normal. No measurable pleural effusion and no p neumothorax. No acute bony abnormality seen. No acute aortic findings suspected. IMPRESSION: No acute cardiopulmonary process.
[2020-10-27] MEDS ORDERED: VANCOMYCIN 1 GM/VIAL ONE (18:02)
[2020-10-27] MEDS ORDERED: PIPER/TAZO/NS 3.375gm 3.375 GM/100 ML BAG ONE (18:02)
[2020-10-27] MEDS ORDERED: NA CHLORIDE 0.9% 250 ML ONE (18:02)
--- NOTE | 2020-10-27 18:15 | EDPHYS ---
Physician Documentation [facility] Name: Oswaldo Chou Age: 69 yrs Sex: Male : 1950 Arrival Date: 10/27/2020 Time: 14:26 Bed 8 Private MD: Owen Tesfaye R ED Physician Olvin Goldberg HPI: 10/27 16:10 This 69 yrs old Male presents to ER via Wheelchair with complaints of Low O2, cp Leg Pain. Historical: - Allergies: 14:41 No Known Allergies; hb - Immunization history:: Adult Immunizations up to date, Client reports receiving the 2nd dose of the Covid vaccine, Client reports receiving the 1st dose of the Covid vaccine, PT stated that he was COVID + in Jul 2020. - Social history:: Smoking status: Patient denies any tobacco usage or history of. ROS: 16:15 Constitutional: Negative for body aches, chills, fever, poor PO intake. cp 16:15 Eyes: Negative for injury, pain, redness, and discharge. cp 16:15 ENT: Negative for ear pain, sore throat, difficulty swallowing, difficulty handling secretions. 16:15 Cardiovascular: Positive for chest pain, Negative for palpitations. 16:15 Respiratory: Positive for shortness of breath, at rest. wheezing, Negative for cough. 16:15 Abdomen/GI: Negative for abdominal pain, nausea, vomiting, and diarrhea. 16:15 MS/extremity: Positive for pain, swelling, tenderness, of the right leg. 16:15 Neuro: Negative for altered mental status, headache, syncope, weakness. 16:15 All other systems are negative. Exam: 16:30 Constitutional: The patient appears in no acute distress, alert, awake, cp non-diaphoretic, non-toxic, well developed, well nourished, uncomfortable. 16:30 Head/Face: Normocephalic, atraumatic. cp 16:30 Eyes: Periorbital structures: appear normal, Conjunctiva: normal, no exudate, no injection, Sclera: no appreciated abnormality, Lids and lashes: appear normal, bilaterally. 16:30 ENT: External ear(s): are unremarkable, Nose: is normal, Posterior pharynx: Airway: no evidence of obstruction, patent. 16:30 Chest/axilla: Inspection: normal, Palpation: is normal, no crepitus, no tenderness. 16:30 Cardiovascular: Rate: tachycardic, Rhythm: regular, JVD: is not appreciated. 16:30 Respiratory: the patient does not display signs of respiratory distress, Respirations: labored breathing, that is mild, Breath sounds: wheezing: that is mild, is heard diffusely. 16:30 Abdomen/GI: Inspection: abdomen appears normal, Palpation: abdomen is soft and non-tender, in all quadrants. 16:30 Musculoskeletal/extremity: Extremities: grossly normal except: noted in the right leg: cool to touch, painful to touch out of proportion to exam, overlying skin mottled, Pulses: noted to be 2+ in the right dorsalis pedis artery. 16:30 Neuro: Orientation: to person, place \T\ time. Mentation: is normal. Vital Signs: 14:39 BP 168 / 88; Pulse 105; Resp 16; Temp 97.4; Pulse Ox 100% on R/A; Pain 10/10; hb 16:07 BP 115 / 66; Pulse 96; Resp 30; Pulse Ox 95% on R/A; sv 16:30 BP 109 / 80; Pulse 92; Resp 28; Pulse Ox 99% on Nebulizer Mask; sv 16:45 BP 114 / 76; Pulse 108 MON; Resp 24; Pulse Ox 98% on Nebulizer Mask; sv 16:57 Pain 7/10; sv 17:05 Pulse Ox 92% on R/A; sv 17:23 Pain 5/10; sv 17:34 BP 111 / 67; Pulse 108; Resp 24; Pulse Ox 95% on 2 lpm NC; sv 18:19 BP 126 / 75; Pulse 107 MON; Resp 22; Pulse Ox 96% on 2 lpm NC; sv 19:22 BP 126 / 75; Pulse 98; Resp 20; Pulse Ox 96% on 2 lpm NC; wh 20:30 BP 104 / 58; Pulse 89; Resp 20; Pulse Ox 96% on 2 lpm NC; wh 16:45 Sinus tachycardia sv 18:19 Sinus tachycardia sv 17:05 Pt placed on O2 \T\ 2L per NC. O2 sat up to 96%. Informed Ed CHOI sv MDM: 15:25 Patient medically screened. kavita 17:50 Physician consultation: was contacted at 17:51, regarding regarding transfer, [facility] in [place] consult with DR Quintana, vascular surgeon, requests transfer to services of hospitalist. 18:21 Physician consultation: was contacted at 18:08, regarding regarding transfer, [facility] [place] in [place] patient's condition, accepting physician will be DR Jordy Fortune, hospitalist. 18:25 Data reviewed: vital signs, nurses notes, lab test result(s), radiologic studies, plain cp films, ultrasound, I have discussed the patient's presentation/case with the attending Emergency Department Physician;. Counseling: I had a detailed discussion with the patient and/or guardian regarding: the historical points, exam findings, and any diagnostic results supporting the discharge/admit diagnosis, lab results, radiology results, the need to transfer to another facility. Response to treatment: the patient's symptoms have markedly improved after treatment, pain markedly improved. 10/27 16:07 Order name: Basic Metabolic Panel cp 10/27 16:07 Order name: CBC with Diff cp 10/27 16:07 Order name: LFT's; Complete Time: 16:52 cp 10/27 16:07 Order name: Magnesium; Complete Time: 16:52 cp 10/27 16:07 Order name: NT PRO-BNP; Complete Time: 16:52 cp 10/27 16:07 Order name: PT-INR; Complete Time: 16:52 cp 10/27 16:07 Order name: Troponin (emerg Dept Use Only); Complete Time: 16:52 cp 10/27 16:08 Order name: Basic Metabolic Panel; Complete Time: 16:52 EDMS 10/27 16:58 Interpretation: Normal except: GLUC 109; GFR 79. cp 10/27 16:08 Order name: CBC with Automated Diff; Complete Time: 17:22 EDMS 10/27 16:59 Interpretation: Normal except: WBC 19.90; MERLE% 89.2; LYM% 3.3; NEUT A 17.8. cp 10/27 16:49 Order name: Manual Differential; Complete Time: 17:22 EDMS 10/27 17:36 Order name: Procalcitonin cp 10/27 17:36 Order name: Lactate cp 10/27 17:36 Order name: Blood Culture Adult (2) cp 10/27 14:44 Order name: Lower Extremity Artery Uni Ltd US; Complete Time: 16:05 rn 10/27 14:44 Order name: Extremity Venous Uni Ltd US; Complete Time: 16:05 rn 10/27 16:07 Order name: XRAY Chest (1 view); Complete Time: 17:22 cp 10/27 16:07 Order name: EKG; Complete Time: 16:08 cp 10/27 16:07 Order name: Cardiac monitoring; Complete Time: 16:28 cp 10/27 16:07 Order name: EKG - Nurse/Tech; Complete Time: 16:28 cp 10/27 16:07 Order name: IV Saline Lock; Complete Time: 16:28 cp 10/27 16:07 Order name: Labs collected and sent; Complete Time: 16:28 cp 10/27 16:07 Order name: O2 Per Protocol; Complete Time: 16:28 cp 10/27 17:44 Order name: SARS-COV-2 RT PCR; Complete Time: 17:48 EDMS 10/27 16:07 Order name: O2 Sat Monitoring; Complete Time: 16:28 cp Administered Medications: 16:28 Drug: fentaNYL (PF) 25 mcg {Note: rass3.} Route: IVP; Site: right antecubital; sv 16:57 Follow up: Pain 7/10 Adult; Response: No adverse reaction; RASS: Agitated (+2) sv 16:28 Drug: SOLU-Medrol 125 mg Route: IVP; Site: right antecubital; sv 16:57 Follow up: Response: No adverse reaction sv 16:28 Drug: Albuterol - atroVENT (ipratropium) (3:1) (2.5 mg - 0.5 mg) 3 ml Route: Nebulizer; sv 16:57 Follow up: Response: No adverse reaction sv 16:56 Drug: fentaNYL (PF) 25 mcg {Note: rass2.} Route: IVP; Site: right antecubital; sv 17:23 Follow up: Pain 5/10 Adult; Response: No adverse reaction; Pain is decreased; RASS: sv Alert and Calm (0) 18:20 Drug: Zosyn 3.375 grams Route: IVPB; Infused Over: 60 mins; Site: right antecubital; sv 19:22 Follow up: Response: No adverse reaction; IV Status: Completed infusion wh 19:15 Drug: vancoMYCIN 1 grams Route: IVPB; Infused Over: 2 hrs; Site: right antecubital; wh 20:31 Follow up: Response: No adverse reaction; IV Status: Completed infusion Disposition: 10/28 07:52 Co-signature as Attending Physician, Olvin Goldberg MD. rn Disposition: 10/27/20 18:15 Transfer ordered to [facility]. Diagnosis are Cellulitis of right lower limb, Coronavirus infection, unspecified, Unspecified asthma with (acute) exacerbation. - Reason for transfer: Higher level of care. - Accepting physician is DR Jordy Fortune. - Condition is Stable. - Problem is new. - Symptoms have improved. Signatures: Dispatcher [employer] EDOK Dominique Castillo, RN RN Olvin Chacon MD MD rn Ed Ag PA PA cp Tiffanie Larsen RN RN Juani Zurita RN RN Corrections: (The following items were deleted from the chart) 10/27 16:47 16:08 CORONAVIRUS+MR.LAB.BRZ ordered. [facility] EDOK 20:31 18:15 10/27/2020 18:15 Transfer ordered to [facility]. Diagnosis is Cellulitis of right lower limb; Coronavirus infection, unspecified; Unspecified asthma with (acute) exacerbation. Reason for transfer: Higher level of care. Accepting physician is DR Jordy Fortune. Condition is Stable. Problem is new. Symptoms have improved. cp
--- NOTE | 2020-10-27 18:15 | ER ---
Nurse's Notes [facility] Name: Oswaldo Chou Age: 69 yrs Sex: Male : 1950 Arrival Date: 10/27/2020 Time: 14:26 Bed 8 Private MD: Owen Tesfaye R Diagnosis: Cellulitis of right lower limb;Coronavirus infection, unspecified;Unspecified asthma with (acute) exacerbation Presentation: 10/27 14:39 Chief complaint: Right leg stents placed 10/[address] [facility] in [place] , c/o worsening hb sharp pain in the right foot that radiates to right buttock. Coronavirus screen: At this time, the client does not indicate any symptoms associated with coronavirus-19. Ebola Screen: No symptoms or risks identified at this time. Initial Sepsis Screen: Does the patient meet any 2 criteria? HR > 90 bpm. No. Patient's initial sepsis screen is negative. Does the patient have a suspected source of infection? No. Patient's initial sepsis screen is negative. Risk Assessment: Do you want to hurt yourself or someone else? Patient reports no desire to harm self or others. Onset of symptoms was October 27, 2020. 14:39 Method Of Arrival: Wheelchair hb 14:39 Acuity: REINA 3 hb Historical: - Allergies: 14:41 No Known Allergies; hb - Immunization history:: Adult Immunizations up to date, Client reports receiving the 2nd dose of the Covid vaccine, Client reports receiving the 1st dose of the Covid vaccine, PT stated that he was COVID + in Jul 2020. - Social history:: Smoking status: Patient denies any tobacco usage or history of. Screenin:15 Abuse screen: Denies threats or abuse. Denies injuries from another. Nutritional sv screening: No deficits noted. Tuberculosis screening: No symptoms or risk factors identified. Fall Risk None identified. Assessment: 16:15 General: Appears in no apparent distress. uncomfortable, well groomed, well developed, sv Behavior is cooperative, appropriate for age, restless. Pain: Complains of pain in back, chest and right leg Pain currently is 10 out of 10 on a pain scale. Quality of pain is described as sharp, Is continuous, Aggravated by increased activity, repositioning, Noted to be grimacing, restless. Neuro: Level of Consciousness is awake, alert, obeys commands, Oriented to person, place, time, situation, Moves all extremities. Full function. Cardiovascular: Patient's skin is warm and dry. Pulses are 3+ in right dorsalis pedis artery and left dorsalis pedis artery. Respiratory: Airway is patent Respiratory effort is even, unlabored, Respiratory pattern is regular, symmetrical. Derm: Skin is intact, Skin is pink, warm \T\ dry. RLE is cold to touch and purple in color. Musculoskeletal: Range of motion: intact in all extremities, Swelling present in right leg. 17:00 Reassessment: Patient appears in no apparent distress at this time. Patient and/or sv family updated on plan of care and expected duration. Pain level reassessed. Patient is alert, oriented x 3, equal unlabored respirations, skin warm/dry/pink. 17:05 Reassessment: Dr Goldberg at the bedside. sv 18:12 Reassessment: Patient appears in no apparent distress at this time. Patient and/or sv family updated on plan of care and expected duration. Pain level reassessed. Patient is alert, oriented x 3, equal unlabored respirations, skin warm/dry/pink. 19:21 Reassessment: Patient appears in no apparent distress at this time. Patient and/or wh family updated on plan of care and expected duration. Pain level reassessed. Patient is alert, oriented x 3, equal unlabored respirations, skin warm/dry/pink. 19:51 Reassessment: Report given to Moustapha Clarke RN. 20:30 Reassessment: Patient appears in no apparent distress at this time. Patient and/or wh family updated on plan of care and expected duration. Pain level reassessed. Patient is alert, oriented x 3, equal unlabored respirations, skin warm/dry/pink. Vital Signs: 14:39 BP 168 / 88; Pulse 105; Resp 16; Temp 97.4; Pulse Ox 100% on R/A; Pain 10/10; hb 16:07 BP 115 / 66; Pulse 96; Resp 30; Pulse Ox 95% on R/A; sv 16:30 BP 109 / 80; Pulse 92; Resp 28; Pulse Ox 99% on Nebulizer Mask; sv 16:45 BP 114 / 76; Pulse 108 MON; Resp 24; Pulse Ox 98% on Nebulizer Mask; sv 16:57 Pain 7/10; sv 17:05 Pulse Ox 92% on R/A; sv 17:23 Pain 5/10; sv 17:34 BP 111 / 67; Pulse 108; Resp 24; Pulse Ox 95% on 2 lpm NC; sv 18:19 BP 126 / 75; Pulse 107 MON; Resp 22; Pulse Ox 96% on 2 lpm NC; sv 19:22 BP 126 / 75; Pulse 98; Resp 20; Pulse Ox 96% on 2 lpm NC; wh 20:30 BP 104 / 58; Pulse 89; Resp 20; Pulse Ox 96% on 2 lpm NC; wh 16:45 Sinus tachycardia sv 18:19 Sinus tachycardia sv 17:05 Pt placed on O2 \T\ 2L per NC. O2 sat up to 96%. Informed Ed MEDELLIN sv ED Course: 14:26 Patient arrived in ED. mr 14:27 Owen Tesfaye MD is Private Physician. mr 14:41 Triage completed. hb 14:41 Arm band placed on. hb 15:15 Ed Ag PA is PHCP. cp 15:15 Olvin Goldberg MD is Attending Physician. cp 15:47 Lower Extremity Artery Uni Ltd US In Process Unspecified. EDMS 15:47 Extremity Venous Uni Ltd US In Process Unspecified. EDMS 15:53 Dominique Castillo, RN is Primary Nurse. sv 16:15 Patient has correct armband on for positive identification. Bed in low position. Call sv light in reach. Side rails up X2. professional services manager on. Pulse ox on. NIBP on. Door closed. Head of bed elevated. 16:20 Inserted saline lock: 20 gauge in right antecubital area, using aseptic technique. sv ,using aseptic technique. done by [facility] Blood collected. 16:29 Basic Metabolic Panel Sent. sv 16:29 CBC with Diff Sent. sv 16:31 EKG done, by ED staff, reviewed by Ed MEDELLIN. sv 16:39 XRAY Chest (1 view) In Process Unspecified. EDMS 17:[address] Quintana the vascular surgeon corrections sergeant with for Dr. Paz with Ed Medellin for eb patient transfer consultation. 17:54 initiated a transfer with Aleena Ramsey from the [facility]. eb 18:[address] Aram Fortnue the hospitalist corrections sergeant for [facility] [place] with Ed [place]in for eb patient transfer consultation. 18:08 Missed attempt(s): 20 gauge in left antecubital area. Bleeding controlled, band aid sv applied, catheter tip intact. 18:10 administrative approval given by Debbie Reza/ patient has been accepted to [facility]/ Dr. Jordy Fortune has accepted the patient in transfer. report to be called to [phone]. 18:12 First set of blood cultures drawn by me. Inserted saline lock: 22 gauge in right sv antecubital area, using aseptic technique. Blood collected. Flushed right antecubital with 5 ml normal saline. 18:18 Second set of blood cultures drawn by me. sv 19:01 Report given to Juani XIONG and Shazia XIONG. sv 19:08 Primary Nurse role handed off by Dominique Castillo RN sv 19:10 Juani Zurita, RN is Primary Nurse. 20:31 No provider procedures requiring assistance completed. Patient transferred, IV remains in place. Administered Medications: 16:28 Drug: fentaNYL (PF) 25 mcg {Note: rass3.} Route: IVP; Site: right antecubital; sv 16:57 Follow up: Pain 7/10 Adult; Response: No adverse reaction; RASS: Agitated (+2) sv 16:28 Drug: SOLU-Medrol 125 mg Route: IVP; Site: right antecubital; sv 16:57 Follow up: Response: No adverse reaction sv 16:28 Drug: Albuterol - atroVENT (ipratropium) (3:1) (2.5 mg - 0.5 mg) 3 ml Route: Nebulizer; sv 16:57 Follow up: Response: No adverse reaction sv 16:56 Drug: fentaNYL (PF) 25 mcg {Note: rass2.} Route: IVP; Site: right antecubital; sv 17:23 Follow up: Pain 5/10 Adult; Response: No adverse reaction; Pain is decreased; RASS: sv Alert and Calm (0) 18:20 Drug: Zosyn 3.375 grams Route: IVPB; Infused Over: 60 mins; Site: right antecubital; sv 19:22 Follow up: Response: No adverse reaction; IV Status: Completed infusion wh 19:15 Drug: vancoMYCIN 1 grams Route: IVPB; Infused Over: 2 hrs; Site: right antecubital; wh 20:31 Follow up: Response: No adverse reaction; IV Status: Completed infusion Outcome: 18:15 ER care complete, transfer ordered by . cp 20:31 Transferred by ground EMS to [facility], Transfer form completed. X-rays sent w/ patient. Note: Report given to [facility] 20:31 Condition: stable 20:31 Instructed on the need for transfer. 20:31 Patient left the ED. Signatures: Dispatcher [employer] EDDominique Galeano, RN RN Vanessa [place] mr Kimberli, Ed, PA PA Tiffanie Perera, RN RN Juani Zurita, RN INGA Cha Benitez Corrections: (The following items were deleted from the chart) 16:52 16:48 BP 109 / 80; Pulse 92bpm; Resp 28bpm; Pulse Ox 99% Nebulizer Mask; sv sv 16:55 16:15 Derm: Skin is intact, Skin is pink, warm \T\ dry. sv sv 16:55 16:15 Cardiovascular: Patient's skin is warm and dry. sv sv 17:05 17:05 Pulse Ox 92% RA; Pt placed on O2 \T\ 2L per NC. O2 sat up to 96%.; sv sv 18:19 16:45 BP 114 / 76; Pulse 108bpm; Resp 24bpm; Pulse Ox 98% Nebulizer Mask; sv sv
[2020-10-28 00:38] VITALS: TEMP 97.4
[2020-10-28 00:48] VITALS: O2SAT 96
[2020-10-28 00:51] VITALS: BP 104/58
--- NOTE | 2020-10-29 07:17 | EKG ---
Test Date: 2020-10-27 Test Time: 16:29:54 Driver'S License Examiner: SV MEASUREMENT RESULTS: Intervals: Rate: 96 ME: 164 QRSD: 96 QT: 350 QTc: 442 [place]: P: 62 ME: 164 QRS: 269 T: 89 INTERPRETIVE STATEMENTS: Normal sinus rhythm Right superior axis deviation Pulmonary disease pattern Abnormal ECG No previous ECG available for comparison Electronically Signed On 10-29-20 07:14:27 CDT by Chandana Loredo
== END 2020-10-27 20:31 | disposition short-term general hospital (02) ==
LOC: ER 14:22
DX: L03.115 Cellulitis of right lower limb (principal); U07.1 COVID-19; J45.901 Unspecified asthma with (acute) exacerbation
CPT/HCPCS: 87040 ×2; 85025; 80048; 36415; 83735; 85610; 80076; 83605; 84484; 84145; 83880; 71045; 93926; 93971; U0003; J3010; J3370; J2543; J7050; J2930; 93005; 96365; 96375; 99285

== ENCOUNTER 2022-07-10 19:19 | Emergency (ER) | payer OTHER ==
--- OUTSIDE RECORDS SUMMARY | 2022-07-10 19:27 | XMS REPORT | Continuity of Care Document ---
:1950 Author Organization [facility] t Address [address] [place] [place] [address] Care Team Providers Name Role Phone Unknown, Physician Primary Care Physician Unavailable WILNER SIM Attending Clinician Unavailable WILNER SIM Attending Clinician Unavailable Marie Dukes MA Attending Clinician Unavailable Yariel Pradhan MD Attending Clinician Jordy Toussaint MD Attending Clinician MD JORDY TOUSSAINT Attending Clinician Unavailable Erendira Barron MA Attending Clinician Unavailable Tal Ríos MD Attending Clinician Mary Salas Attending Clinician Denzel Leavitt MD Attending Clinician MD YARIEL PRADHAN Attending Clinician Unavailable Hanna Mendez RN Attending Clinician Unavailable Michael Hraris MD Attending Clinician [phone] Doreen Resendiz MD Attending Clinician Edmundo Carrera NP Attending Clinician [phone] Rip Nova MD Attending Clinician RIP NOVA Attending Clinician Unavailable KORTNEY CLARKE Attending Clinician Unavailable JERMAIN SILVERMAN Attending Clinician Unavailable XENA ECHEVERRIA Attending Clinician Unavailable TYESHA CHENG Attending Clinician Unavailable Rogerio Hinojosa Attending Clinician JORDY TOUSSAINT Admitting Clinician Unavailable MD JORDY TOUSSAINT Admitting Clinician Unavailable YARIEL PRADHAN Admitting Clinician Unavailable MD YARIEL PRADHAN Admitting Clinician Unavailable RIP NOVA Admitting Clinician Unavailable XENA ECHEVERRIA Admitting Clinician Unavailable TYESHA CHENG Admitting Clinician Unavailable Payers Payer Name Policy Type Policy Number Effective Date Expiration Date Leti [facility] [id number] 2021 MEDICARE 00:00:00 [employer] [id number] 2017 00:00:00 [employer] [id number] Problems Condition Condition Condition Status Onset Resolution Last Treating Co mments Source Name Details Category Date Date Treatment Clinician Date ECHO/PER ECHO/PER Diagnosis Active 2020-072021-08-[address] John Lopez 15:45:00 l Active 00:00: Sg 04/19/[address] [place] [address] F/U F/U Diagnosis Active 2021-05-03 Mem oria Active 04-12 17:09:00 l 04/12/2021 00:00: Rudy perez [address] Wound Wound Disease Active [facility] infection infection 4-10 st 00:00: Hospita 00 l IVC IVC Disease Active Overview: Method i (inferior (inferior 3-12 Formattin s t vena cava vena cava 00:00: g of this H ospita obstructio obstructio 00 note l n) n) might be different from the original. Added automatic ally from request for surgery [id number] Leg edema Leg edema Disease Active Overview: [facility] 3-[address] 00:00: g of this Hospita 00 note l might be different from the original. Added automatic ally from request for surgery [id number] VIRTUAL VIRTUAL Diagnosis Active 2020-08-17 Memoria VISIT VISIT 02-08 16:22:00 l Active 00:00: [place] 02/09/2020 [facility] 6 MONTH 6 MONTH Diagnosis Active 2020-02-09 Memoria FOLLOW UP FOLLOW UP 08-11 11:36:00 l Active 00:00: [place] 08/11/2019 [facility] Vena cava Vena cava Disease Active 2018-07 [facility] obstructio obstructio 2-16 st n, n, 00:00: Hospita inferior inferior 00 l Vena cava, Vena cava, Disease Active 2018-07 M ethodi inferior, inferior, 2-09 st obstructio obstructio 00:00: Ho spita n syndrome n syndrome 00 l Acute deep Acute deep Disease Active 2018-07 Overview : [facility] vein vein 07-[address] thrombosis thrombosis 00:00: g of this Hospita (DVT) of (DVT) of 00 note l femoral femoral might be vein of vein of different right right from the lower lower original. extremity extremity Added automatic ally from request for surgery [id number] 3 MONTH 3 MONTH Diagnosis Active 2018-072019-08-11 Memoria FOLLOW UP FOLLOW UP 0-17 12:23:00 l Active 00:00: Sg 05/05/2019 [facility] 3 MONHT 3 MONHT Diagnosis Active 2018-072019-08-01 Memoria FOLLOW UP FOLLOW UP 0- 08:31:00 l Active 00:00: [place] 05/05/2019 [facility] FOLLOW UP FOLLOW UP Diagnosis Active 2018-072019-05-05 Memoria Active 0- 11:11:00 l 05/02/2019 00:00: Rudy perez [address] DVT (deep DVT (deep Disease Active Met [facility] venous venous 04-11 st thrombosis thrombosis 00:00: Ho spita ) ) 00 l R06.02 - R06.02 - Diagnosis Active 2019-03-18 Memoria SHORTNESS SHORTNESS 7-05 08:12:00 l OF BREATH OF BREATH 00:01: Herm antony Active 00 01/21/2019 [facility] 2 MONTH 2 MONTH Diagnosis Active 2019-03-17 Memoria FOLLOW UP FOLLOW UP 11-23 15:17:00 l Active 00:00: [place] 11/23/2018 [facility] WOUND WOUND Diagnosis Active 2019-04-08 Mem oria Active 07-20 10:28:00 l 07/20/2018 08:00: Rudy perez [facility] MID BACK MID BACK Diagnosis Active 2019-03-23 Memoria SX WOUND 3 SX WOUND 3 07-20 11:00:00 l WKKS WKKS 08:00: [place] Active 00 07/20/2018 [facility] Urinary Urinary Disease Active 2017-07 [facility] tract tract 1-29 st infection infection 00:00: Hosp laura associated associated 00 l with with indwelling indwelling urethral urethral catheter catheter Asthma Asthma Disease Active 2017-07 [facility] 1- st 00:00: Hospita 00 l DYSPNEA DYSPNEA Diagnosis Active 2017-072018-10-03 Memoria Active 07-25 15:28:00 l 05/25/2018 00:00: Rudy perez [facility] R60.0 - R60.0 - Diagnosis Active 2018-03-01 Memoria LOCALIZED LOCALIZED 12-11 07:47:00 l EDEMA EDEMA 00:01: Sg R06.02 - R06.02 - 00 SHORTNE SHORTNE Active 12/11/2017 YUMIKO Thompson 3 WEEK 3 WEEK Diagnosis Active 2018-01-12 Sc moria FOLLOW UP FOLLOW UP 12-10 13:00:00 l Active 00:00: Sg 12/10/2017 00 [facility] NEW PT/ NEW PT/ Diagnosis Active 2017-12-10 Memoria CARDIAC CARDIAC 12-10 13:21:00 l CONSULT/ CONSULT/ 00:00: Rudy GIBBS. . REF. DRKimo 00 MAXI GERMAN Active 12/10/2017 [facility] I73.89 - I73.89 - Diagnosis Active 2017-08-06 Memoria OTHER OTHER 1-16 12:01:00 l SPECIFIED SPECIFIED 00:01: Herm antony PERIPHERAL PERIPHERAL 00 VAS VAS Active 08/04/2017 [facility] CARDIAC CARDIAC Diagnosis Active 2017-10-10 Memoria EVAL. EVAL. 07-20 15:39:00 l Active 00:00: Sg 07/20/2017 00 [facility] DM DM Disease Active 2016-07 [facility] (diabetes (diabetes 0-19 st mellitus) mellitus) 00:00: Hosp laura 00 l Venous Venous Disease Active 2016-07 Last [facility] insufficie insufficie 0-[address] ncy ncy 00:00: t & Plan: Hospita 00 Formattin l g of this note might be different [...] paraesthe gary.RTC prn. Benign Benign Disease Active [facility] nodular nodular 6- st prostatic prostatic 00:00: Hosp laura hyperplasi hyperplasi 00 l a with a with lower lower urinary urinary tract tract symptoms symptoms Benign Benign Disease Active [facility] nodular nodular 6- st prostatic prostatic 00:00: Hosp laura hyperplasi hyperplasi 00 l a with a with lower lower urinary urinary tract tract symptoms symptoms Benign Benign Disease Active [facility] non-nodula non-nodula 6- st r r 00:00: Hospita prostatic prostatic 00 l hyperplasi hyperplasi a with a with lower lower urinary urinary tract tract symptoms symptoms Benign Benign Disease Active [facility] non-nodula non-nodula 6- st r r 00:00: Hospita prostatic prostatic 00 l hyperplasi hyperplasi a with a with lower lower urinary urinary tract tract symptoms symptoms Low back Low back Problem Active 2009-072017-12-22 Memoria pain pain 2-14 00:55:59 l (disorder) (disorder) 00:00: He rmann Active 00 07/02/2010 Problem 12/22/2017 Data migrated from [facility] on 03/13/15. [facility], H O[facility] Lumbar Lumbar Problem Active 2009-072021-07-28 German lamin radiculopa radiculopa 2-14 00:25:27 l thy thy 00:00: [place] (disorder) (disorder) 00 Active 07/02/2010 Problem 07/28/2021 Data migrated from [facility] on 03/13/15. [facility] Spinal Spinal Problem Active 2009-072021-07-28 German lamin stenosis stenosis 2-14 00:25:27 l of lumbar of lumbar 00:00: Herm antony region region 00 (disorder) (disorder) Active 07/02/2010 Problem 07/28/2021 Data migrated from [facility] on 03/13/15. [facility] Numbness Numbness Problem Active 2017-12-22 Memoria of lower of lower 00:55:59 l limb limb [place] (finding) (finding) Active Problem 12/22/2017 [facility] YUMIKO Thompson Atrial Atrial Problem Active 2021-07-28 German lamin fibrillati fibrillati 00:25:27 l on on Sg (disorder) (disorder) Active Problem 07/28/2021 [facility], [facility] Deep Deep Problem Active 2021-07-28 Memor ia venous venous 00:25:27 l thrombosis thrombosis He rmann of lower of lower extremity extremity (disorder) (disorder) Active Problem 07/28/2021 [facility], [facility] Dyslipidem Dyslipide Problem Active 2021-07-28 Memoria ia johnie 00:25:27 l (disorder) (disorder) He rmann Active Problem 07/28/2021 [facility], [facility], OPI [facility] Kyphosis Kyphosis Problem Active 2021-07-28 Memoria deformity deformity 00:25:27 l of spine of spine Rudy n (disorder) (disorder) Active Problem 07/28/2021 [facility], [facility], OP[facility] Lumbar Lumbar Problem Active 2021-07-28 Mem oria 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 (disorder) (disorder) Active Problem 07/28/2021 [facility], [facility] Peripheral Periphera Problem Active 2021-07-28 Memoria venous l venous 00:25:27 l insufficie insufficie He argelia ncy ncy (disorder) (disorder) Active Problem 07/28/2021 [facility], [facility] Simple Simple Problem Active 2021-07-28 German lamin obesity obesity 00:25:27 l (disorder) (disorder) He rmann Active Problem 07/28/2021 [facility] Dyspnea Dyspnea Problem Active 2019-04-10 Me moria (finding) (finding) 22:00:09 l Active [place] Problem 04/10/2019 [facility], [facility] Disease Disease Problem Active 2021-07-28 Me moria caused by caused by 00:25:27 l 2018-nCoV 2018-nCoV Herm antony Active Problem 07/28/2021 [facility] ENCNTR FOR ENCNTR Diagnosis Active 2020-08-17 Memoria GENERAL FOR 16:22:00 l ADULT GENERAL [place] MEDICAL ADULT EXAM W/ MEDICAL EXAM W/ Active [facility] SKIN GRAFT SKIN Diagnosis Active 2019-04-08 Memoria (ALLOGRAFT GRAFT 10:28:00 l ) (ALLOGRAFT Rudy n (AUTOGRAFT ) ) FAILU (AUTOGRAFT ) FAILU Active [facility] UNSP OPN UNSP OPN Diagnosis Active 2019-04-08 Memoria WND LOW WND LOW 10:28:00 l BACK AND BACK AND Rudy n PELV W/O PELV W/O PENET PENET Active [facility] Diagnosis Active 2019-04-08 Mem oria COMPLICATI COMPLICATI 10:28:00 l ONS OF ONS OF [place] PROCEDURES PROCEDURES , NEC, IN , NEC, IN [facility] ENCOUNTER Diagnosis Active 2021-08-06 Memoria FOR FOR 15:45:00 l GENERAL GENERAL [place] ADULT ADULT MEDICAL MEDICAL EXAM EXAM Active [facility] DISRUPTION DISRUPTIO Diagnosis Active 2019-03-23 Memoria OF N OF 11:00:00 l EXTERNAL EXTERNAL Rudy n OPERATION OPERATION (SURGIC (SURGIC [facility] UNSPECIFIE UNSPECIFI Diagnosis Active 2018-11-18 Memoria D ATRIAL ED ATRIAL 08:58:00 l FIBRILLATI FIBRILLATI He rmann ON ON Active [facility] DYSPNEA, DYSPNEA, Diagnosis Active 2018-01-12 Memoria UNSPECIFIE UNSPECIFIE 13:00:00 l D D Active [place] [facility] History of Past Illness Condition Condition Condition Status Onset Resolution Last Treating Co mments Source Name Details Category Date Date Treatment Clinician Date Acute Acute Problem 2021-07-28 2021-07-28 M emoria embolism embolism 07-25 00:25:27 00:25:27 l and and 19:32: Sg thrombosis thrombosis 00 of of unspecifie unspecifie d deep d deep veins of veins of right right lower lower extremity extremity 07/25/2021 07/28/2021 [facility] Venous Venous Problem 2021-07-28 2021-07-28 Memoria insufficie insufficie 07-25 00:25:27 00:25:27 l ncy ncy 19:32: Sg (chronic) (chronic) 00 (periphera (periphera l) l) 07/25/2021 07/28/2021 [facility] Unspecifie Unspecifi Problem 2021-07-28 2021-07-28 Memoria d atrial ed atrial 07-25 00:25:27 00:25:27 l fibrillati fibrillati 19:31: Neil stout on on 07/25/2021 2 [facility] 2019-nCoV 2019-nCoV Problem 2021-07-28 2021-07-28 Memoria acute acute 07-25 00:25:27 00:25:27 l respirator respirator 19:31: He argelia y disease y disease 07/25/2021 2 [facility] Other Other Problem 2017-11-12 2017-11-12 M emoria specified specified 08-11 17:41:34 17:41:34 l peripheral peripheral 06:01: He argelia vascular vascular 09 diseases diseases 08/11/2017 11/12/2017 YUMIKO Thompson Other Other Problem 2017-04-09 2017-04-09 M emoria specified specified 04-06 05:11:23 05:11:23 l soft soft 05:00: Sg tissue tissue 00 disorders disorders 04/06/2017 04/09/2017 [facility] Other Other Problem 2017-04-09 2017-04-09 M emoria specified specified 04-06 05:11:23 05:11:23 l joint joint 05:00: Sg disorders, disorders, 00 right knee right knee 04/06/2017 04/09/2017 [facility] Allergies, Adverse Reactions, Alerts Allergy Allergy Status Severity Reaction(s) Onset Inactive Treating Comm ents Source Name Type Date Date Clinician No Known DA [facility] 2018-0 [facility] 00:[facility]: [address] No Known DA Active [facility] 2018-0 [facility] 11-25 [place] s 00:00: [address] No Known DA Active U 2018-0 [facility] 11-23 s 00:00: [address] No Known DA Active U 2006-0 [facility] Contrast 01-04 [facility] 00:00: [address] No Known DA Active U 2006-0 [facility] Drug 01-04 [place] Allergie 00:00: [address] No Known DA Active U 2007-0 [facility] [place] Allergie 00:00: [address] No Known DA Active U 2007-0 [facility] [place] [facility] NO KNOWN Drug Active Univers ALLERGIE Class ity of S [facility] Family History Family Member Diagnosis Comments Start Date Stop Date Source Natural father [facility] Natural mother [facility] Social History Social Habit Start Date Stop Date Quantity Comments Source History SDOH [facility] Comment Hospital History SDOH [facility] Std Drinks Hospit al History SDOH [facility] B[facility] History of tobacco Current smoker [facility] Exposure to Yes [facility] of SARS-CoV-2 (event) [facility] Alcohol intake 2020-11-15 2020-11-15 Lifetime [facility] 00:00:00 00:00:00 non-drinker Hospital (finding) History SDOH 2020-10-04 2020-10-04 1 [facility] Frequency 00:00:00 00:00:00 Hospita l Tobacco Comment 2019-05-30 2019-05-30 quit 30 yrs ago Meth odist 00:00:00 00:00:00 Hospital Cigarettes smoked 2019-05-30 2019-05-[address] current (pack per 00:00:00 00:00:00 Hospita l day) - Reported Cigarette 2019-05-30 2019-05-30 [facility] pack-years 00:00:00 00:00:00 Hospital Social History 2017-04-06 2017-04-06 [facility] 19:32:49 19:32:49 Tobacco use and 2015-12-19 2015-12-19 Smokeless [facility] exposure 00:00:00 00:00:00 tobacco non-user Hospital Sex Assigned At [birth year] [facility] 00:00:00 00:00:00 Hospital Smoking Status Start Date Stop Date Source Tobacco smoking consumption PR H ealt unknown Ex-smoker 2015-12-19 00:00:00 2015-12-19 [facility] Medications Ordered Filled Start Stop Current Ordering Indication Dosage Frequency Signature Comments Components Source Medication Medication Date Date Medication? Clinician (SIG) Name Name rivaroxaban Yes 20mg Take 20 mg [facility] (XARELTO) 4-[address] 20 mg 15:08: Hospita tablet 26 l rivaroxaban 2020-0 Yes 20mg Take 20 mg [facility] (XARELTO) 4-[address] 20 mg 10:08: Hospita tablet 26 l rivaroxaban 2021-0 Yes 20mg Take 20 mg [facility] (XARELTO) 4-[address] 20 mg 10:08: Hospita tablet 26 l rivaroxaban 2020-0 Yes 20mg Take 20 mg [facility] (XARELTO) 4-[address] 20 mg 10:08: Hospita tablet 26 l ondansetron 2020- No 4mg Q8H Take 1 [facility] ODT (Zofran 4-13 05-14 tablet (4 st ODT) 4 MG 00:00: 04:59 mg total) Ho spita disintegrat 00 :00 by mouth l ing tablet every 8 (eight) hours as needed for nausea or vomiting for up to 30 days. ramelteon 2020-2020- No 8mg QD Take 1 Metho di (ROZEREM) 8 10-30 05-14 tablet (8 st mg tablet 00:00: 04:59 mg total) Ho spita 00 :00 by mouth l nightly for 30 days. ondansetron 2020- No 4mg Q8H Take 1 Met [facility]odi ODT (Zofran 4- 05-14 tablet (4 st ODT) 4 MG 00:00: 04:59 mg total) Ho spita disintegrat 00 :00 by mouth l ing tablet every 8 (eight) hours as needed for nausea or vomiting for up to 30 days. ramelteon 2020- No 8mg QD Take 1 Metho di (ROZEREM) 8 10-30 05-14 tablet (8 st mg tablet 00:00: 04:59 mg total) Ho spita 00 :00 by mouth l nightly for 30 days. ondansetron 2020- No 4mg Q8H Take 1 Met [facility]odi ODT (Zofran 4-13 05-14 tablet (4 st ODT) 4 MG 00:00: 04:59 mg total) Ho spita disintegrat 00 :00 by mouth l ing tablet every 8 (eight) hours as needed for nausea or vomiting for up to 30 days. ramelteon 2020-2020- No 8mg QD Take 1 Meth[facility] di (ROZEREM) 8 4- 05-14 tablet (8 st mg tablet 00:00: 04:59 mg total) Ho spita 00 :00 by mouth l nightly for 30 days. cephalexin 2020- No 1000mg Q.[id number] Take 2 [facility] (KEFLEX) 10-[id number] 500 MG 00:00: 04:59 3D (1,000 mg Hospi ta capsule 00 :00 total) by l mouth 3 (three) times a day for 7 days. doxycycline 2020-2020- No 100mg Q.5D Take 1 Me thodi (VIBRAMYCIN 10-[address] ) 100 MG 00:00: 04:59 (100 mg Hospi ta capsule 00 :00 total) by l mouth 2 (two) times a day with meals for 7 days. metoclopram 2020- No 5mg Q.25D Take 1 Me thodi khalida 10-30 tablet (5 st (Reglan) 5 00:00: 04:59 mg total) H ospita MG tablet 00 :00 by mouth 4 l (four) times a day for 7 days. cetirizine 2020- No 5mg QD Chew 1 Meth hiren (ZyrTEC) 5 10-30 tablet (5 st MG chewable 00:00: 04:59 mg total) Hospita tablet 00 :00 daily for l 7 days. acetaminoph 2020- [place] [id number] 1{tbl} Q6H Take 1 [facility] en-codeine 10-[address] (TYLENOL 00:00: 04:59 mouth Hospita WITH 00 :00 every 6 l CODEINE #3) (six) 300-30 mg hours as per tablet needed for severe pain for up to 7 days .acute pain. cephalexin 2020- No 1000mg Q.[id number] Take 2 [facility] (KEFLEX) 10-[id number] 500 MG 00:00: 04:59 3D (1,000 mg Hospi ta capsule 00 :00 total) by l mouth 3 (three) times a day for 7 days. doxycycline 2020-2020- No 100mg Q.5D Take 1 Me thodi (VIBRAMYCIN 10-[address] ) 100 MG 00:00: 04:59 (100 mg Hospi ta capsule 00 :00 total) by l mouth 2 (two) times a day with meals for 7 days. metoclopram 2020- No 5mg Q.25D Take 1 Me thodi khalida 10-30 tablet (5 st (Reglan) 5 00:00: 04:59 mg total) H ospita MG tablet 00 :00 by mouth 4 l (four) times a day for 7 days. cetirizine 2020- No 5mg QD Chew 1 Meth hiren (ZyrTEC) 5 10-30 tablet (5 st MG chewable 00:00: 04:59 mg total) Hospita tablet 00 :00 daily for l 7 days. acetaminoph 2020- [place] [id number] 1{tbl} Q6H Take 1 [facility] en-codeine 10-[address] (TYLENOL 00:00: 04:59 mouth Hospita WITH 00 :00 every 6 l CODEINE #3) (six) 300-30 mg hours as per tablet needed for severe pain for up to 7 days .acute pain. cephalexin 2020- No 1000mg Q.[id number] Take 2 [facility] (KEFLEX) 10-[id number] 500 MG 00:00: 04:59 3D (1,000 mg Hospi ta capsule 00 :00 total) by l mouth 3 (three) times a day for 7 days. doxycycline 2020- No 100mg Q.5D Take 1 Me thodi (VIBRAMYCIN 10-[address] ) 100 MG 00:00: 04:59 (100 mg Hospi ta capsule 00 :00 total) by l mouth 2 (two) times a day with meals for 7 days. metoclopram 2020- No 5mg Q.25D Take 1 Me thodi khalida 10-30 tablet (5 st (Reglan) 5 00:00: 04:59 mg total) H ospita MG tablet 00 :00 by mouth 4 l (four) times a day for 7 days. cetirizine 2020- No 5mg QD Chew 1 Meth hiren (ZyrTEC) 5 10-30 tablet (5 st MG chewable 00:00: 04:59 mg total) Hospita tablet 00 :00 daily for l 7 days. acetaminoph No 1{tbl} Q6H Take 1 [facility] en-codeine 4-13 -[address] (TYLENOL 00:00: 04:59 mouth Hospita WITH 00 :00 every 6 l CODEINE #3) (six) 300-30 mg hours as per tablet needed for severe pain for up to 7 days .acute pain. pantoprazol 2021-0 Yes 40mg QD Take 1 Meth hiren e 4-06 tablet (40 st (Protonix) 00:00: mg total) Ho spita 40 MG EC 00 by mouth l tablet daily. pantoprazol 2021-0 Yes 40mg QD Take 1 Meth hiren e 4-06 tablet (40 st (Protonix) 00:00: mg total) Ho spita 40 MG EC 00 by mouth l tablet daily. pantoprazol 2021-0 Yes 40mg QD Take 1 Meth hiren e 4-06 tablet (40 st (Protonix) 00:00: mg total) Ho spita 40 MG EC 00 by mouth l tablet daily. pantoprazol 2021-0 Yes 40mg QD Take 1 Meth hiren e 4-06 tablet (40 st (Protonix) 00:00: mg total) Ho spita 40 MG EC 00 by mouth l tablet daily. acetaminoph No 1{tbl} Q4H Take 1 [facility] en-codeine 3-25 -[address] (TYLENOL 00:00: 04:59 mouth Hospita WITH 00 :00 every 4 l CODEINE #3) (four) 300-30 mg hours as per tablet needed for moderate pain for up to 7 days .acute pain. acetaminoph No 1{tbl} Q4H Take 1 [facility] en-codeine 3-25 04-[address] (TYLENOL 00:00: 04:59 mouth Hospita WITH 00 :00 every 4 l CODEINE #3) (four) 300-30 mg hours as per tablet needed for moderate pain for up to 7 days .acute pain. acetaminoph No 1{tbl} Q4H Take 1 [facility] en-codeine 3-25 04-[address] (TYLENOL 00:00: 04:59 mouth Hospita WITH 00 :00 every 4 l CODEINE #3) (four) 300-30 mg hours as per tablet needed for moderate pain for up to 7 days .acute pain. clopidogreL 2021- No 75mg QD Take 1 Met hodi (PLAVIX) 75 -05 22-12 tablet (75 s t mg tablet 00:00: 05:59 mg total) Ho spita 00 :00 by mouth l daily. clopidogreL 2021- No 75mg QD Take 1 Met hodi (PLAVIX) 75 -05 22-12 tablet (75 s t mg tablet 00:00: 05:59 mg total) Ho spita 00 :00 by mouth l daily. clopidogreL 2020-2021- No 75mg QD Take 1 Met hodi (PLAVIX) 75 -05 22-12 tablet (75 s t mg tablet 00:00: 05:59 mg total) Ho spita 00 :00 by mouth l daily. clopidogreL 2021- No 75mg QD Take 1 Met hodi (PLAVIX) 75 -05 22-12 tablet (75 s t mg tablet 00:00: 05:59 mg total) Ho spita 00 :00 by mouth l daily. mirabegron 2021-0 Yes 50mg QD Take 1 Metho di (Myrbetriq) 2-23 tablet (50 st 50 mg 00:00: mg total) Hospita tablet 00 by mouth l extended daily. release 24 hr oxybutynin 2021-0 Yes 5mg QD Take 1 Meth[facility] di (DITROPAN) 2-23 tablet (5 st 5 MG tablet 00:00: mg total) H ospita 00 by mouth l daily. mirabegron 2021-0 Yes 50mg QD Take 1 Metho di (Myrbetriq) 2-23 tablet (50 st 50 mg 00:00: mg total) Hospita tablet 00 by mouth l extended daily. release 24 hr oxybutynin 2021-0 Yes 5mg QD Take 1 Metho di (DITROPAN) 2-23 tablet (5 st 5 MG tablet 00:00: mg total) H ospita 00 by mouth l daily. mirabegron 2021-0 Yes 50mg QD Take 1 Metho di (Myrbetriq) 2-23 tablet (50 st 50 mg 00:00: mg total) Hospita tablet 00 by mouth l extended daily. release 24 hr oxybutynin 2020-0 Yes 5mg QD Take 1 Metho di (DITROPAN) 2-23 tablet (5 st 5 MG tablet 00:00: mg total) H ospita 00 by mouth l daily. mirabegron 2020-0 Yes 50mg QD Take 1 Metho di (Myrbetriq) 2-23 tablet (50 st 50 mg 00:00: mg total) Hospita tablet 00 by mouth l extended daily. release 24 hr oxybutynin 2020-0 Yes 5mg QD Take 1 Metho di (DITROPAN) 2-23 tablet (5 st 5 MG tablet 00:00: mg total) H ospita 00 by mouth l daily. doxycycline 2020-2020- No 100mg Q.5D Take 1 Me thodi (VIBRAMYCIN 2-08-[address] ) 100 MG 00:00: 05:59 (100 mg Hospi ta capsule 00 :00 total) by l mouth 2 (two) times a day for 7 days. gentamicin 2020- No [id number] Apply Methodi (GARAMYCIN) 08-21- [id number] topically st 0.1 % 00:00: 05:59 3D 3 (three) Hospit a ointment 00 :00 times a l day for 7 days. Apply to right 5th toe ulcer doxycycline 2020- No 100mg Q.5D Take 1 Me thodi (VIBRAMYCIN 2-[address] ) 100 MG 00:00: 05:59 (100 mg Hospi ta capsule 00 :00 total) by l mouth 2 (two) times a day for 7 days. gentamicin 2020- No [id number] Apply Methodi (GARAMYCIN) 08-21- [id number] topically st 0.1 % 00:00: 05:59 3D 3 (three) Hospit a ointment 00 :00 times a l day for 7 days. Apply to right 5th toe ulcer dexamethaso 2019-07 2020- No 6mg 6 mg, Univ ers ne 09-16 Oral, ity of (DECADRON 04:15: 03:30 ONCE, 1 [place] 00 :00 dose, Sun Medi brennon injection 6 07/15/20 Bran ch mg at 2215, STAT codeine-gua 2019-07 No [id number] 5mL Take 5 mL Univers ifenesin 09-15 by mouth ity of 10-100 mg/5 00:00: 05:59 every 6 [place] solution 00 :00 (six) Medical hours as Branch needed for Cough for up to 7 days. Indication s: acute pain tolterodine No 4mg QD Take 1 Met hodi [place] (Detrol 02-1612 capsule (4 st LA) 4 MG 24 00:00: 00:00 mg total) Hospita hr capsule 00 :00 by mouth l daily. tolterodine No 4mg QD Take 1 Met hodi LA (Detrol 02-16 capsule (4 st LA) 4 MG 24 00:00: 00:00 mg total) Hospita hr capsule 00 :00 by mouth l daily. tolterodine No 4mg QD Take 1 Met hodi [place] (Detrol 02-1612 capsule (4 st LA) 4 MG 24 00:00: 00:00 mg total) Hospita hr capsule 00 :00 by mouth l daily. mirabegron No 50mg QD Take 1 Meth hiren (Myrbetriq) 02-13 tablet (50 s t 50 mg 00:00: 00:00 mg total) Hospit a tablet 00 :00 by mouth l extended daily. release 24 hr mirabegron No 50mg QD Take 1 Meth hiren (Myrbetriq) 02-13 tablet (50 s t 50 mg 00:00: 00:00 mg total) Hospit a tablet 00 :00 by mouth l extended daily. release 24 hr mirabegron 2020- No 50mg QD Take 1 Meth hiren (Myrbetriq) 02-13 tablet (50 s t 50 mg 00:00: 00:00 mg total) Hospit a tablet 00 :00 by mouth l extended daily. release 24 hr rivaroxaban 2020-0 Yes 20 mg = 1 M emoria 20 MG Oral 7-23 tab, PO, l Tablet 18:52: QPM, # 90 Rudy n [Xarelto] 00 tab, 1 Refill(s), Pharmacy: [facility], 170.18, cm, 02/09/20 12:14:00 CDT, Height, 95.455, kg, 02/09/20 12:14:00 CDT, Weight clopidogrel 2020-0 Yes 75 mg = 1 M emoria 75 MG Oral 7-23 tab, PO, l Tablet 18:52: Daily, # [place] [Plavix] 00 90 tab, 1 Refill(s), Pharmacy: [facility], 170.18, cm, 02/09/20 12:14:00 CDT, Height, 95.455, kg, 02/09/20 12:14:00 CDT, Weight rivaroxaban 2020-0 Yes 20 mg = 1 M emoria 20 MG Oral 1-23 tab, PO, l Tablet 20:02: QPM, # 30 Rudy n [Xarelto] 00 tab, 5 Refill(s), Pharmacy: [facility] clopidogrel 2020-0 Yes 75 mg = 1 M emoria 75 MG Oral 1-23 tab, PO, l Tablet 17:54: Daily, 0 [place] [Plavix] 00 Refill(s) clopidogrel 2020-0 2020- No [id number] 75mg QD Take 1 Methodi (PLAVIX) 75 115 -15 tablet (75 s t mg tablet 00:00: 05:59 mg total) Ho spita 00 :00 by mouth l daily. oxybutynin 2019-2020- No 5mg QD Take 1 Meth hiren (DITROPAN) 07-26 tablet (5 st 5 MG tablet 00:00: 00:00 mg total) Hospita 00 :00 by mouth l daily. oxybutynin 2019-2020- No 5mg QD Take 1 Meth hiren (DITROPAN) 07-26 tablet (5 st 5 MG tablet 00:00: 00:00 mg total) Hospita 00 :00 by mouth l daily. oxybutynin 2019-2020- No 5mg QD Take 1 Meth hiren (DITROPAN) 07-26 tablet (5 st 5 MG tablet 00:00: 00:00 mg total) Hospita 00 :00 by mouth l daily. pantoprazol 40mg QD Take 1 Met dex e 07-22-06 tablet (40 st (PROTONIX) 00:00: 00:00 mg total) H ospita 40 MG EC 00 :00 by mouth l tablet daily. pantoprazol 40mg QD Take 1 Met dex e 07-22 tablet (40 st (PROTONIX) 00:00: 00:00 mg total) H ospita 40 MG EC 00 :00 by mouth l tablet daily. pantoprazol 40mg QD Take 1 Met dex e 07-22 tablet (40 st (PROTONIX) 00:00: 00:00 mg total) H ospita 40 MG EC 00 :00 by mouth l tablet daily. mupirocin 2018-07- APPLY Method i (BACTROBAN) 08-[address] 2 % 00:00: 00:00 TOPICALLY Hospita ointment 00 :00 TO l AFFECTED AREA ON RIGHT FOOT TOES THREE TIMES DAILY FOR 14 DAYS mupirocin 2018-07 No APPLY Method i (BACTROBAN) 08-[address] 2 % 00:00: 00:00 TOPICALLY Hospita ointment 00 :00 TO l AFFECTED AREA ON RIGHT FOOT TOES THREE TIMES DAILY FOR 14 DAYS acetamino 2018-07- No 1{tbl} Take 1 M ethodi en-codeine 07-[address] (TYLENOL 00:00: 00:00 mouth. PRN Ho spita WITH 00 :00 l CODEINE #3) 300-30 mg per tablet acetaminoph 2018-07- No 1{tbl} Take 1 M ethodi en-codeine 07-[address] (TYLENOL 00:00: 00:00 mouth. PRN Ho spita WITH 00 :00 l CODEINE #3) 300-30 mg per tablet acetaminoph 2018-07 No 1{tbl} Take 1 M ethodi en-codeine 1-04 03-[address] (TYLENOL 00:00: 00:00 mouth. PRN Ho spita WITH 00 :00 l CODEINE #3) 300-30 mg per tablet oxybutynin 2018-07 Yes 5 mg = 1 Mem oria 5 mg oral 0-17 tab, PO, l tablet 16:13: BID, 0 [place] 00 Refill(s) warfarin 6 2018-07 Yes 6 mg = 1 Mem oria mg oral 0-17 tab, PO, l tablet 16:13: Daily, 0 Sg 00 Refill(s) Baclofen 0 Yes PO, TID, 0 Mem oria 3-05 Refill(s) l 21:01: [place] 00 rivaroxaban Yes 20 mg = 1 M emoria 20 MG Oral 3-05 tab, PO, l Tablet 21:01: QPM, # 30 Rudy n [Xarelto] 00 tab, 3 Refill(s) pantoprazol Yes 40 mg = 1 M emoria e 40 mg 3-05 tab, PO, l oral 21:01: Daily, 0 [place] enteric 00 Refill(s) coated tablet primidone Yes 50 mg = 1 Mem oria 50 mg oral 8-03 tab, PO, l tablet 21:43: BID, # 180 Tisha nn 32 tab, 1 Refill(s), Pharmacy: [facility] potassium 0 Yes 10 mEq = 1 Me moria chloride 10 5-24 tab, PO, l mEq oral 18:31: Daily, [place] tablet, 00 ONLY FOR 1 extended WEEK, # 7 release tab, 0 Refill(s), Pharmacy: [facility] [id number] Furosemide Yes 40 mg = 1 Me moria 40 MG Oral 5-24 tab, PO, l Tablet 18:31: Daily, # 7 Tisha nn [Lasix] 00 tab, 0 Refill(s), Pharmacy: [facility] [id number], ONLY FOR 1 WEEK primidone Yes 50 mg = 1 Mem oria 50 mg oral 5-18 tab, PO, l tablet 05:43: BID, # 180 Tisha nn 15 tab, 1 Refill(s), Pharmacy: [facility] 768 primidone 1- No 50mg Q.5D Take 50 mg M ethodi (MYSOLINE) 5-18 03-[address] 50 MG 00:00: 00:00 (two) Hospita tablet 00 :00 times a l day. primidone 2020- No 50mg Q.5D Take 50 mg M ethodi (MYSOLINE) 12-04-[address] 50 MG 00:00: 00:00 (two) Hospita tablet 00 :00 times a l day. primidone 2020- No 50mg Q.5D Take 50 mg M ethodi (MYSOLINE) 12-[address] 50 MG 00:00: 00:00 (two) Hospita tablet 00 :00 times a l day. primidone No 50 mg = 1 Mem oria 50 mg oral 2-21 tab, PO, l tablet 18:46: BID, # 60 Rudy n 00 tab, 1 Refill(s), Pharmacy: [facility] 768 propranolol No 80 mg = 1 M emoria 80 mg oral 2-12 tab, PO, l tablet 23:13: BID, # 60 Rudy n 00 tab, 3 Refill(s), Pharmacy: [facility] 768 Cephalexin Yes 500 mg = 1 M emoria 500 MG Oral 9-18 cap, PO, l Capsule 20:53: BID, X 7 Rudy n [Keflex] 00 day, # 14 cap, 0 Refill(s) Cephalexin Yes 500 mg = 1 M emoria 500 MG Oral 9-18 cap, PO, l Capsule 20:53: BID, X 7 Rudy n [Keflex] day, # 14 cap, 0 Refill(s) Cephalexin [...] 0.9% 9-18 preservati l 19:32: ve free. Sg 00 Immunizations Ordered Immunization Filled Immunization Date Status Commen ts Source Name Name PFIZER COVID-19 MRNA 2020-09-15 Completed Meth odist VACCINATION 00:00:00 [facility] PFIZER COVID-19 MRNA 2020-09-15 Completed Meth odist VACCINATION 00:00:00 [facility] PFIZER COVID-19 MRNA 2020-09-15 Completed Meth odist VACCINATION 00:00:00 [facility] PFIZER COVID-19 MRNA 2020-09-15 Completed Meth odist VACCINATION 00:00:00 [facility] PFIZER COVID-19 MRNA 2020-08-25 Completed Meth odist VACCINATION 00:00:00 [facility] PFIZER COVID-19 MRNA 2020-08-25 Completed Meth odist VACCINATION 00:00:00 [facility] PFIZER COVID-19 MRNA 2020-08-25 Completed Meth odist VACCINATION 00:00:00 [facility] PFIZER COVID-19 MRNA 2020-08-25 Completed Meth odist VACCINATION 00:00:00 [facility] FLUCELVAX QUAD PF 2019-04-[address] 00:00:[address] [facility] Pneumococcal 2019-04-18 Completed [facility] Conjugate 13-Valent 00:00:00 Hospi noy FLUCELVAX QUAD PF 2019-04-[address] 00:00:00 Hospital Pneumococcal 2019-04-18 Completed [facility] Conjugate 13-Valent 00:00:00 Hospi noy FLUCELVAX QUAD PF 2019-04-[address] 00:00:00 Hospital Pneumococcal 2019-04-18 Completed [facility] Conjugate 13-Valent 00:00:00 Hospi noy FLUCELVAX QUAD PF 2019-04-[address] 00:00:00 Hospital Pneumococcal 2019-04-18 Completed [facility] Conjugate 13-Valent 00:00:00 Hospi noy Vital Signs Vital Name Observation Time Observation Value Comments Source Systolic blood 2020-07-16 03:30:00 119 mm[Hg] Univer sity of pressure [facility] Diastolic blood 2020-07-16 03:30:00 84 mm[Hg] Unive rsity of pressure [facility] Heart rate 2020-07-16 03:30:00 87 /min [facility] Respiratory rate 2020-07-16 03:30:00 18 /min [facility] saturation in 2020-07-16 03:30:00 94 /min University of Arterial blood by [facility] Pulse oximetry [place] Body temperature 2020-07-16 02:00:00 36.67 Allison [facility] Body weight 2020-07-16 00:18:00 [facility].255 [facility] Systolic blood 2020-07-16 03:30:00 119 mm[Hg] Univer sity of pressure [facility] Diastolic blood 2020-07-16 03:30:00 84 mm[Hg] Unive rsity of [facility] Heart rate 2020-07-16 03:30:00 87 /min Universi [facility] Respiratory rate 2020-07-16 03:30:00 18 /min [facility] Oxygen saturation in 2020-07-16 03:30:00 94 /min [facility] Arterial blood by [facility] Pulse oximetry [place] Body temperature 2020-07-16 02:00:00 36.67 Allison [facility] Body weight 2020-07-16 00:18:00 95.255 kg [facility] Heart Rate 2021-07-25 19:15:00 [facility] Respitory Rate 2021-07-25 19:[facility] Sy[facility]olic (mm Hg) 2021-07-25 19:15:00 [facility] thomas Sg Diastolic (mm Hg) 2021-07-25 19:15:00 [facility] [place] Height 2021-07-25 19:15:00 170.18 cm [facility] Weight 2021-07-25 19:15:00 [facility] BMI Calculated 2021-07-25 19:15:00 [facility] al Sg Systolic blood 2020-11-15 15:06:00 123 mm[Hg] [facility] pressure Diastolic blood 2020-11-15 15:06:00 71 mm[Hg] [facility] pressure Heart rate 2020-11-15 15:06:00 70 /min [facility] Body temperature 2020-11-15 15:06:00 36.06 Allison [facility] Respiratory rate 2020-10-30 17:28:00 20 /min [facility] Oxygen saturation in 2020-10-30 17:28:00 96 /min [facility] Arterial blood by Pulse oximetry Body weight 2020-10-30 09:31:00 107.049 kg [facility] BMI 2020-10-30 09:31:00 36.96 kg/m2 [facility] Body height 2020-10-28 04:22:00 170.2 cm [facility] Systolic (mm Hg) 2020-02-09 17:13:00 German rial Sg Diastolic (mm Hg) 2020-02-09 17:13:00 Mem orial Sg Heart Rate 2020-02-09 17:13:00 Memorial [place] Height 2020-02-09 17:13:00 170.18 cm [facility] Sg Weight 2020-02-09 17:13:00 [facility] Sg BMI Calculated 2020-02-09 17:13:00 Memori al [place] Systolic (mm Hg) 2019-08-11 17:52:00 German rial [place] Diastolic (mm Hg) 2019-08-11 17:52:00 Mem orial [place] Heart Rate 2019-08-11 17:52:00 Memorial [place] Height 2019-08-11 17:52:00 170.18 cm Memorial Sg Weight 2019-08-11 17:52:00 [facility] [place] BMI Calculated 2019-08-11 17:52:00 Memori al [place] Systolic (mm Hg) 2019-05-05 16:11:00 German rial Sg Diastolic (mm Hg) 2019-05-05 16:11:00 Mem orial [place] Heart Rate 2019-05-05 16:11:00 Memorial [place] Height 2019-05-05 16:11:00 170.18 cm Memorial [place] Weight 2019-05-05 16:11:00 [facility] [place] BMI Calculated 2019-05-05 16:11:00 Memori al [place] BMI Calculated 2018-09-21 21:00:00 Memori al [place] Weight 2018-09-21 21:00:00 Memorial [place] Height 2018-09-21 21:00:00 170.18 cm Memorial [place] Heart Rate 2018-09-21 21:00:00 [facility] Sg Systolic (mm Hg) 2018-09-21 21:00:00 German rial Sg Diastolic (mm Hg) 2018-09-21 21:00:00 Mem orial [place] Weight 2018-02-19 19:45:00 Memorial Sg Heart Rate 2018-02-19 19:45:00 [facility] [place] Systolic (mm Hg) 2018-02-19 19:45:00 German rial Sg Diastolic (mm Hg) 2018-02-19 19:45:00 Mem orial [place] Weight 2018-01-12 18:57:00 Memorial [place] BMI Calculated 2018-01-12 18:57:00 Memori al Sg Height 2018-01-12 18:57:00 170.18 cm Memorial [place] Systolic (mm Hg) 2018-01-12 18:57:00 German rial Sg Diastolic (mm Hg) 2018-01-12 18:57:00 Mem orial Sg Heart Rate 2018-01-12 18:57:00 Memorial Sg Weight 2017-12-10 18:08:00 Memorial Sg BMI Calculated 2017-12-10 18:08:00 Memori al Sg Height 2017-12-10 18:08:00 170.18 cm Memorial Sg Heart Rate 2017-12-10 18:08:00 Memorial [place] Systolic (mm Hg) 2017-12-10 18:08:00 German rial Sg Diastolic (mm Hg) 2017-12-10 18:08:00 Mem orial Sg Height 2017-12-08 17:45:00 170.18 cm Memorial Sg BMI Calculated 2017-12-08 17:45:00 Memori al Sg Weight 2017-12-08 17:45:00 Memorial Sg Heart Rate 2017-12-08 17:45:00 [facility] [place] Systolic (mm Hg) 2017-12-08 17:45:00 German rial Sg Diastolic (mm Hg) 2017-12-08 17:45:00 Mem orial Sg Weight 2017-12-03 21:26:00 [facility] Sg Systolic (mm Hg) 2017-12-03 21:26:00 German rial Sg Diastolic (mm Hg) 2017-12-03 21:26:00 Mem orial Sg Heart Rate 2017-12-03 21:26:00 Memorial Sg Weight 2017-08-31 21:15:00 [facility] Sg Systolic (mm Hg) 2017-08-31 21:15:00 German rial [place] Diastolic (mm Hg) 2017-08-31 21:15:00 Mem orial [place] Heart Rate 2017-08-31 21:15:00 Memorial [place] Weight 2017-07-24 19:44:00 [facility] [place] Heart Rate 2017-07-24 19:44:00 Memorial Sg Systolic (mm Hg) 2017-07-24 19:44:00 German rial Sg Diastolic (mm Hg) 2017-07-24 19:44:00 Mem orial [place] Systolic (mm Hg) 2017-04-06 21:21:00 German rial Sg Diastolic (mm Hg) 2017-04-06 21:21:00 Mem orial Sg Temperature Oral (F) 2017-04-06 21:21:00 98 F [facility] Sg Respitory Rate 2017-04-06 21:21:00 Memori al [place] Heart Rate 2017-04-06 21:21:00 Memorial Sg Height 2017-04-06 19:13:00 170.18 cm Memorial [place] BMI Calculated 2017-04-06 19:13:00 Memori al [place] Weight 2017-04-06 19:13:00 [facility] [place] Heart Rate 2017-04-06 19:13:00 Memorial [place] Respitory Rate 2017-04-06 19:13:00 Memori al [place] Systolic (mm Hg) 2017-04-06 19:13:00 German rial Sg Diastolic (mm Hg) 2017-04-06 19:13:00 Mem orial [place] Procedures Procedure Date / Time Performing Clinician Source Performed US DUPLEX AORTA INFERIOR 2020-11-15 15:04:00 Yariel Pradhan [facility] [place]NA [place] LIMITED BASIC METABOLIC PANEL 2020-10-30 09:37:00 ToussaintJordy [facility] HC COMPLETE BLD COUNT 2020-10-30 09:37:00 ToussaintJordy carrillo [facility] W/AUTO DIFF MAGNESIUM LEVEL 2020-10-30 09:37:00 Jordy Toussaint spital PHOSPHORUS LEVEL 2020-10-30 09:37:00 Jordy Toussaint ospital ESTIMATED GFR 2020-10-30 09:37:00 Jordy Toussaint spital BASIC METABOLIC PANEL 2020-10-29 07:51:00 ToussaintJordy [facility] HC COMPLETE BLD COUNT 2020-10-29 07:51:00 Jordy Toussaint [facility] W/AUTO DIFF MAGNESIUM LEVEL 2020-10-29 07:51:00 Toussaint, [facility] spital PHOSPHORUS LEVEL 2020-10-29 07:51:00 Toussaint, [facility] ospital ESTIMATED GFR 2020-10-29 07:51:00 Toussaint, [facility] ECG 12-LEAD 2020-10-29 07:22:33 Ras Rogers [facility] CT ABDOMEN PELVIS W 2020-10-28 22:21:07 Reuben Dutton [facility] CONTRAST POC GLUCOSE 2020-10-28 21:21:00 Toussaint, [facility] spital LIPASE LEVEL 2020-10-28 18:21:00 Toussaint, [facility] spital AMYLASE LEVEL 2020-10-28 18:21:00 Toussaint, [facility] spital POC GLUCOSE 2020-10-28 17:08:00 Toussaint, [facility] XR ABDOMEN 1 VW PORTABLE 2020-10-28 16:10:13 Toussaint, [facility] US DUPLEX AORTA INFERIOR 2020-10-28 15:48:20 Agustin Garcia [facility] VENA CAVA LIMITED [facility] URINE CULTURE 2020-10-28 13:50:00 Toussaint, [facility] XR CHEST 1 VW PORTABLE 2020-10-28 12:28:24 Tuossaint, [facility] LACTIC ACID LEVEL 2020-10-28 10:38:00 Toussaint, [facility] BASIC METABOLIC PANEL 2020-10-28 07:38:00 Toussaint, [facility] HC COMPLETE BLD COUNT 2020-10-28 07:38:00 Toussaint, [facility] W/AUTO DIFF MAGNESIUM LEVEL 2020-10-28 07:38:00 Toussaint, [facility] spital PHOSPHORUS LEVEL 2020-10-28 07:38:00 Toussaint, [facility] ospital LACTIC ACID LEVEL 2020-10-28 07:38:00 Toussaint, [facility] ESTIMATED GFR 2020-10-28 07:38:00 Toussaint, [facility] URINALYSIS SCREEN AND 2020-10-28 07:33:00 [facility], [facility] MICROSCOPY, WITH REFLEX TO CULTURE ECG 12-LEAD 2020-10-28 05:07:33 Toussaint, [facility] BLOOD CULT[facility], AEROBIC & 2020-10-28 05:01:00 [facility], [facility] ANAEROBIC BLOOD CULTURE, AEROBIC & 2020-10-28 04:45:00 Toussaint, [facility] ANAEROBIC COVID-19 QUALITATIVE 2020-10-28 03:57:00 [facility], [facility] RT-PCR HC COMPLETE BLD COUNT 2020-10-28 03:57:00 [facility], [facility] W/AUTO DIFF PROTHROMBIN TIME WITH INR 2020-10-28 03:57:00 [facility], [facility] PARTIAL THROMBOPLASTIN 2020-10-28 03:57:00 [facility], [facility] TIME (PTT) COMPREHENSIVE METABOLIC 2020-10-28 03:57:00 [facility], [facility] PANEL LACTIC ACID LEVEL 2020-10-28 03:57:00 [facility], [facility] ESTIMATED GFR 2020-10-28 03:57:00 [facility], [facility] POC BLOOD GAS, ARTERIAL 2020-10-11 17:38:00 [facility] AND LYTES CV HYBRID OR FLUOROSCOPY 2020-10-11 17:33:48 [facility] ARTERIAL LINE 2020-10-11 17:27:06 Hitesh Ibanez ospital ID AN ELECTIVE 2020-10-11 17:17:00 Hitesh Ibanez ospital ENDOTRACHEAL AIRWAY VENOGRAPHY, UPPER OR 2020-10-11 17:09:00 [facility] LOWER EXTREMITY, UNILATERAL PARTIAL THROMBOPLASTIN 2020-10-11 17:03:[address] [facility] TIME (PTT) PROTHROMBIN TIME WITH INR 2020-10-11 17:03:00 Raina Leavitt [facility] US ANKLE BRACHIAL INDEX 2020-10-11 14:41:00 Barryrust Yariel [facility] US DUPLEX ARTERIAL LOWER 2020-10-11 14:31:00 Carolynn Yarielreuben Rios [facility] EXTREMITY RIGHT URINE CULTURE 2020-10-08 18:37:00 Yariel Pradhan spital XR CHEST 2 VW 2020-10-08 18:06:00 [facility] COMPLETE BLD COUNT 2020-10-08 17:35:00 [facility]/AUTO DIFF ESTIMATED GFR 2020-10-08 17:35:00 BarryrustYariel spital TYPE AND SCREEN 2020-10-08 17:35:00 [facility] COMPREHENSIVE METABOLIC 2020-10-08 17:35:00 [facility]INALYSIS SCREEN AND 2020-10-08 17:07:00 BarryrustYariel [facility] MICROSCOPY, WITH REFLEX TO CULTURE ECG PRE/POST OP 2020-10-08 16:35:29 Yariel Pradhan spital COVID-19 QUALITATIVE 2020-10-08 16:26:00 [facility] RT-PCR US DUPLEX VENOUS LOWER 2020-08-21 22:31:42 [facility] EXTREMITY RIGHT TROPONIN I 2020-07-16 00:56:00 Rip Nova [facility] HEPATIC FUNCTION PANEL 2020-07-16 00:56:00 Rip Nova [facility] ([id number]) (ALB,T.PRO,BILI Medical Branch T,BU/BC,ALT,AST,ALK PHOS) BASIC METABOLIC PANEL 2020-07-16 00:56:00 Rip Nova [facility] (NA, K, CL, CO2, GLUCOSE, Medica l Branch BUN, CREATININE, CA) CBC WITH DIFF 2020-07-16 00:56:00 Rip Nova [facility] PROTHROMBIN TIME / INR 2020-07-16 00:56:[address] [facility] ACTIVATED PARTIAL 2020-07-16 00:56:00 Rip Nova [facility] THRMPLAS FRANCIA Medical Branch N-TERMINAL PRO-BNP 2020-07-16 00:56:00 Rip Nova [facility] COVID-19 (ID NOW RAPID 2020-07-16 00:56:00 Rip Nova [facility] TESTING) Medical Branch XR CHEST 1 VW 2020-07-16 00:44:06 Rip Nova Peyton o f [facility] NOTICE OF PRIVACY 2020-07-16 00:08:40 Doctor Unassigned, [facility] PRACTICES [place] [facility] CONSENT/REFUSAL FOR 2020-07-16 00:08:15 Doctor Unassigned, [facility] DIAGNOSIS AND TREATMENT [place] [facility] [place] Plan of Care Planned Activity Planned Date Details Comments Source Future Scheduled 2022-07-02 Hepatitis C screening [facility] Test 11:52:24 (procedure) [code = [id number]] Future Scheduled 2022-07-02 COLONOSCOPY SCREENING [facility] Test 11:52:24 [code = COLONOSCOPY SCREENING] Future Scheduled 2022-07-02 SHINGLES VACCINES (1 Met [facility] Hospital Test 11:52:24 of 2) [code = SHINGLES VACCINES (1 of 2)] Future Scheduled 2022-07-02 65+ PNEUMOCOCCAL [facility] Test 11:52:24 VACCINE (2 - PPSV23 if available, else PCV20) [code = 65+ PNEUMOCOCCAL VACCINE (2 - PPSV23 if available, else PCV20)] Future Scheduled 2022-07-02 COVID-19 VACCINE (3 - [facility] Test 11:52:24 Booster for Pfizer series) [code = COVID-19 VACCINE (3 - Booster for Pfizer series)] Future Scheduled 2022-07-02 INFLUENZA VACCINE [facility] Hospital Test 11:52:24 [code = INFLUENZA VACCINE] Future Scheduled 2021-07-24 Hepatitis C screening [facility] Test 05:00:31 (procedure) [code = [id number]] Future Scheduled 2021-07-24 COLONOSCOPY SCREENING [facility] Test 05:00:31 [code = COLONOSCOPY SCREENING] Future Scheduled 2021-07-24 SHINGLES VACCINES (#1) [facility] Test 05:00:31 [code = SHINGLES VACCINES (#1)] Future Scheduled 2021-07-24 65+ [facility]UMOCOCCAL [facility] Test 05:00:31 VACCINE (1 of 2 - PPSV23) [code = 65+ PNEUMOCOCCAL VACCINE (1 of 2 - PPSV23)] Future Scheduled 2021-07-24 [facility] 05:00:31 [code = INFLUENZA VACCINE] Future Scheduled 2021-07-24 COVID-19 VACCINE (3 - [facility]31 Booster for Pfizer series) [code = COVID-19 VACCINE (3 - Booster for Pfizer series)] Future Scheduled 2021-07-24 [facility] 05:00:31 (procedure) [code = 854512626] Future Scheduled 2021-07-24 [facility]COPY SCREENING [facility] 05:00:31 [code = COLONOSCOPY SCREENING] Future Scheduled 2021-07-24 SHINGLES VACCINES (#1) [facility] 05:00:31 [code = SHINGLES VACCINES (#1)] Future Scheduled 2021-07-24 65[facility] [facility] 05:00:31 VACCINE (1 of 2 - PPSV23) [code = 65+ PNEUMOCOCCAL VACCINE (1 of 2 - PPSV23)] Future Scheduled 2021-07-24 [facility]ACCINE [facility] 05:00:31 [code = INFLUENZA VACCINE] Future Scheduled 2021-07-24 COVID-19 VACCINE (3 - [facility] 05:00:31 Booster for Pfizer series) [code = COVID-19 VACCINE (3 - Booster for Pfizer series)] Future Scheduled DIABETES: RETINAL EYE [facility] Test EXAM [code = DIABETES: RETINAL EYE EXAM] Future Scheduled DIABETIC FOOT EXAM [facility] [code = DIABETIC FOOT EXAM] Future Scheduled URINE MICROALBUMIN [facility] [code = URINE MICROALBUMIN] Future Scheduled [facility] C [facility] (procedure) [code = 208240655] Future Scheduled [facility] SCREENING [facility] [code = COLONOSCOPY SCREENING] Future Scheduled SHINGLES VACCINES (#1) [facility] [code = SHINGLES VACCINES (#1)] Future Scheduled 65+ [facility]OCO[facility]AL [facility] VACCINE (1 of 2 - PPSV23) [code = 65+ PNEUMOCOCCAL VACCINE (1 of 2 - PPSV23)] Future Scheduled [facility]INE [facility] [code = INFLUENZA VACCINE] Encounters Start End Encounter Admission Attending Care Care Encounter Source Date/Time Date/Time Type Type Clinicians Facility Department ID 2022-02-13 Outpatient [facility] [id number] [place] 05:20:47 [id number] [facility] 2022-02-12 Outpatient [facility] [id number] [place] 17:33:03 [id number] [facility] 2021-10-24 Outpatient [facility] [id number] [place] 01:03:20 , [place] [id number] [facility] 2021-07-18 Outpatient [facility] [id number] [place] 01:03:13 , W[place]NER [facility] 2018-11-23 Outpatient [facility] CAR [id number] MH 08:26:33 2022-01-23 2022-01-23 Outpatient [facility] CAR [id number] [facility] 13:49:00 23:59:00 , [place] 2022-01-23 2022-01-23 [facility] 1.2.840.114 [id number] PR 11:20:00 11:20:00 Visit [place] LOCATION 350.1.13.58 [facility] 9.2.7.2.686 [id number] 2021-07-25 2021-07-26 Outpatient nullFlavo [id number] Memoria 18:39:00 05:59:00 Community 13 l Cardiology Tisha nn Donna 2021-07-25 2021-07-25 Outpatient [facility] CAR [id number] [facility] 12:39:00 23:59:00 , WILNER 2020-11-27 2020-11-27 Telephone Ernst, 1.2.840.1 [id number] [facility] 00:00:00 00:00:00 Marie Cordova [address]3087.1.[address] 3.430.2.7 Hospit a .3.712378 l .8 2020-11-15 2020-11-15 Office Carolynn 1.2.840.1 [id number] [facility] 09:46:20 10:31:38 Visit Yariel 28162.1.[address] 3.430.2.7 Hospit a .3.480830 l .8 2020-11-15 2020-11-15 Outpatient [facility] [id number] [place]qu[place] 00:00:00 00:00:00 [address] [facility] 2020-11-15 2020-11-15 Travel 1.2.840.1 1.2.273.475 [id number] [facility] 00:00:00 00:00:[address] 3.430.2.7 0.2.7.3.698 Ho spita .3.592886 084.8 l .8 2020-10-27 2020-10-30 [facility] 1.2.840.1 [id number] [id number] Method[facility] 22:09:00 14:42:[address] 62724.1.[address] 3.430.2.7 Hospit a .3.157883 l .8 2020-10-23 2020-10-23 Telephone Barron, 1.2.840.1 [id number] [id number] [facility] 00:00:00 00:00:[address] 3.430.2.7 Hospit a .3.633053 l .8 2020-10-12 2020-10-12 Telephone Dukes, 1.2.840.1 [id number] 2099 [id number] [facility] 00:00:00 00:00:00 Marie Art 45651.1.[address] 3.430.2.7 Hospit a .3.942218 l .8 2020-10-11 2020-10-11 [facility], 1.2.840.1 [id number] 2099 [id number] Methodi 09:53:00 17:25:00 Encounter Yariel 25371.1.[address] 3.430.2.7 Hospit a .3.286446 l .8 2020-10-11 2020-10-11 Surgery [facility], 1.2.840.1 [id number] 91976 Methodi 12:00:00 14:30:[address] 3.430.2.7 Hospit a .3.173747 l .8 2020-10-11 2020-10-11 Anesthesia Tal RíosKimo 1.2.840.1 1043 [id number] [id number] Methodi 12:09:00 14:27:00 Event Mary Salas 36158.1.[address] 3.430.2.7 Hospit a .3.635312 l .8 2020-10-11 2020-10-11 Office [place], 1.2.840.1 [id number] 93537 Methodi 12:33:48 12:38:48 Visit Yariel 05650.1.[address] 3.430.2.7 Hospit a .3.431622 l .8 2020-10-11 2020-10-11 Office [place], 1.2.840.1 [id number] 69539 97859 [facility] 09:10:55 09:41:46 Visit Yariel 50723.1.[address] 3.430.2.7 Hospit a .3.403053 l .8 2020-10-11 2020-10-11 Outpatient BISMUTH, [facility] [id number] Banquete 00:00:00 00:00:00 YARIEL [address] 2020-10-11 2020-10-11 Outpatient BISMUTH, [facility] [id number] Banquete 00:00:00 00:00:00 YARIEL [address] 2020-10-11 2020-10-11 Travel 1.2.840.1 1.2.375.806 6848 [id number] Methodi 00:00:00 00:00:[address] 3.430.2.7 0.2.7.3.698 spita .3.419829 084.8 l .8 2020-10-08 2020-10-08 [facility] 1.2.840.1 [id number] 2 [id number] Methodi 12:52:24 23:59:00 Denzel Frye 06779.1.[address] 3.430.2.7 Hospit a .3.838402 l .8 2020-10-08 2020-10-08 Pre-Admiss [place], 1.2.840.1 [id number] 21 [id number] Methodi 11:56:39 12:56:39 ion Yariel 07680.1.[address] Testing 3.430.2.7 Hospit a .3.084005 l .8 2020-10-08 2020-10-08 Outpatient BISMUTH, [facility] [id number] Banquete 00:00:00 00:00:00 YARIEL [address] 2020-10-08 2020-10-08 Travel 1.2.840.1 1.2.238.514 1933 [id number] Methodi 00:00:00 00:00:[address] 3.430.2.7 0.2.7.3.698 Ho spita .3.558962 084.8 l .8 2020-10-02 2020-10-02 Orders Ablola, 1.2.840.1 [id number] 3593 Methodi 00:00:00 00:00:00 Only Hanna 07712.1.[address] 3.430.2.7 Hospit a .3.546854 l .8 2020-09-28 2020-09-28 Prep for Dukes, 1.2.840.1 [id number] 26613 Methodi 00:00:00 00:00:00 Surgery Marie M 18663.1.[address] 3.430.2.7 Hospit a .3.945487 l .8 2020-09-28 2020-09-28 Telephone Dukes, 1.2.840.1 [id number] 2099 757914 [facility] 00:00:00 00:00:00 Marie M 39418.1.[address] 3.430.2.7 Hospit a .3.425128 l .8 2020-09-27 2020-09-27 Telemedici [place], 1.2.840.1 [id number] 21 [id number] Methodi 08:25:25 08:42:51 [address]iel [address]70.1.[address] 3.430.2.7 Hospit a .3.669418 l .8 2020-09-15 2020-09-15 Clinical Kimberly, 1.2.840.1 [id number] 58248 [facility] 11:11:28 11:15:21 Support Michael 39762.1.[address] P. 3.430.2.7 Hospit a .3.798780 l .8 2020-09-11 2020-09-11 Office Astrid, 1.2.840.1 [id number] 9471 Methodi 13:00:15 13:47:40 Visit Doreen 58468.1.[address] 3.430.2.7 Hospit a .3.677670 l .8 2020-09-11 2020-09-11 Travel 1.2.840.1 1.2.264.869 0766 694861 [facility] 00:00:00 00:00:[address] 3.430.2.7 0.2.7.3.698 Ho spita .3.851056 084.8 l .8 2020-08-30 2020-08-30 Office Carolynn, 1.2.840.1 [id number] 70864 67475 Methodi 11:30:06 12:52:40 Visit Yariel 92614.1.[address] 3.430.2.7 Hospit a .3.771409 l .8 2020-08-30 2020-08-30 Travel 1.2.840.1 1.2.861.243 6783 023828 Methodi 00:00:00 00:00:[address] 3.430.2.7 0.2.7.3.698 Ho spita .3.671073 084.8 l .8 2020-08-25 2020-08-25 Clinical 1.2.840.1 [id number] 91411 11622 [facility]i 12:03:53 12:13:[address] 3.430.2.7 Hospit a .3.872171 l .8 2020-08-25 2020-08-25 Travel 1.2.840.1 1.2.606.245 8316 011035 Methodi 00:00:00 00:00:[address] 3.430.2.7 0.2.7.3.698 Ho spita .3.154805 084.8 l .8 2020-08-21 2020-08-21 [facility] 1.2.840.1 [id number] Methodi 16:26:08 16:35:25 Visit Edmundo pillai 98543.1.[address] 3.430.2.7 Hospit a .3.313768 l .8 2020-08-21 2020-08-21 Outpatient [facility] [id number] [address] [place] [address] 00:00:00 00:00:[address] 2020-08-21 2020-08-21 Travel 1.2.840.1 1.2.500.841 9485 243273 Methodi 00:00:00 00:00:[address] 3.430.2.7 0.2.7.3.698 Ho spita .3.908576 084.8 l .8 2020-08-20 2020-08-20 Telephone Dukes, 1.2.840.1 [id number] 2099 175157 Methodi 00:00:00 00:00:00 Marie Art 32202.1.[address] 3.430.2.7 Hospit a .3.313715 l .8 2020-08-14 2020-08-14 Telephone Dukes, 1.2.840.1 [id number] 2100 032872 Methodi 00:00:00 00:00:00 Marie M 29073.1.[address] 3.430.2.7 Hospit a .3.711055 l .8 2020-07-15 2020-07-15 Emergency [facility] 1.2.996.231 8814 6496 18:28:00 23:48:00 Rip Johnston 350.1.13.10 [place] 4.2.7.2.686 [place] [id number] 084 2020-07-15 2020-07-15 Emergency [facility] 1.2.754.101 0438 6496 Univers 18:28:00 23:48:00 Rip Johnston 350.1.13.10 i ty of [place] 4.2.7.2.686 [facility] [id number] [place] [address] [place] 2020-07-15 2020-07-15 Emergency X [facility] ERT [id number] Univers 18:28:00 23:48:00 RIP islas [facility] 2020-06-25 2020-06-25 Refill Ekgregg, 1.2.840.1 [id number] 5638 Methodi 00:00:00 00:00:[address] 3.430.2.7 Hospit a .3.602668 l .8 2020-02-14 2020-02-14 Outpatient EKERUO, [facility] [id number] Banquete 00:00:00 00:00:00 DOREEN [address] 2020-02-14 2020-02-14 Outpatient EKER, [facility] [id number] Banqu[place] 00:00:00 00:00:00 DOREEN [address] 2020-02-09 2020-02-10 Outpatient nullFlavo [id number] [facility] 16:27:00 04:59:00 r Community 10 l Cardiology Tisha chayo Thompson 2020-02-09 2020-02-09 Outpatient THIAGAGERMAN [facility] CAR 751 [id number] [facility] 11:27:00 11:27:00 , [place] 2019-09-27 2019-09-27 Outpatient IMPERIAL-AU [facility] [id number] Banquete 00:00:00 00:00:00 EDMUNDO PILLAI [address] 2019-09-21 2019-09-21 Outpatient IMPERIAL-AU [facility] [id number] Banqu[place] 00:00:00 00:00:00 EDMUNDO PILLAI [address] 2019-09-21 2019-09-21 Outpatient IMPERIAL-AU [facility] [id number] [place]qu[place] 00:00:00 00:00:00 EDMUNDO PILLAI 592 Me thodi 2019-08-11 2019-08-12 Outpatient nullFlavo [id number] Memoria 17:10:00 05:59:00 r Community 09 l Cardiology Tisha nn Donna 2019-08-11 2019-08-11 Outpatient [facility] CAR 7509 [facility] 11:10:00 11:10:00 2019-07-08 2019-07-09 Emergency KORTNEY [facility] [id number] Banquete 00:00:00 00:00:00 847 Method i 2019-07-04 2019-07-05 Outpatient BISMUTH, [facility] [id number] [place]qu[place] 00:00:00 00:00:00 YARIEL 266 Method i 2019-05-31 2019-05-31 Outpatient BISMUTH, [facility] [id number] Banqu[place] 00:00:00 00:00:00 YARIEL 271 Method i 2019-05-30 2019-05-30 Outpatient ATHANASSIOU [facility] [id number] Banquete 00:00:00 00:00:00 , DENZEL 044 Meth hiren 2019-05-05 2019-05-06 Outpatient nullFlavo [id number] Memoria 15:37:00 04:59:00 r Community 08 l Cardiology Tisha chayo Thompson 2019-05-05 2019-05-05 Outpatient [facility] CAR [id number] [facility] 10:37:00 10:37:00 2019-05-03 2019-05-04 Emergency SILVERMAN, [facility] [id number] Banquete 00:00:00 00:00:00 768 Method i 2019-04-22 2019-04-27 Inpatient ECHEVERRIA, [facility] [id number] Banqu[place] 00:00:00 00:00:00 XENA 995 Method i 2019-04-11 2019-04-18 Inpatient ISHFAQ, [facility] [id number] Banquete 00:00:00 00:00:00 TYESHA 756 Metho di 2019-03-17 2019-04-08 Wound Care nullFlavo [facility] [id number] Memoria 15:00:00 21:08:00 debbie Bettencourt 02 l [facility] 2019-02-15 2019-03-17 Wound Care nullFlavo [facility] 8538 [id number] Memoria 20:00:00 04:59:00 r [place] 01 l Donna [facility] 2019-01-13 2019-02-12 Wound Care nullFlavo [facility] 8538 [id number] Memoria 17:56:00 04:59:00 r Sg 00 l [facility] 2019-01-21 2019-01-22 Outpt Diag nullFlavo [facility] [id number] Memoria 19:21:00 04:59:00 Services r Outpatient 02 l Imaging - [facility] 2018-11-18 2018-11-19 Outpatient nullFlavo [id number] Memoria 13:52:00 04:59:00 r Community 06 l Cardiology Tisha nn Donna 2018-11-18 2018-11-18 Outpatient [facility] CAR [id number] [facility] 08:52:00 08:52:00 2018-09-21 2018-09-22 Outpatient nullFlavo [id number] Memoria 19:55:00 05:59:00 r Community 04 l Cardiology Tisha nn Donna 2018-06-22 2018-06-22 Ambulatory nullFlavo MNA [id number] Memoria 19:00:00 19:00:00 Pre-Reg r Neuroscienc 09 l e Donna Sg 2018-06-22 2018-06-22 Outpatient MHIE MHIE [id number] Memoria 13:00:00 13:00:00 09 cayden Bettencourt 2018-06-22 2018-06-22 Outpatient MHIE MHIE [id number] Memoria 13:00:00 13:00:00 09 cayden Bettencourt 2018-03-03 2018-03-05 Phone nullFlavo MNA [id number] Memoria 18:18:00 04:59:59 Message r Neuroscienc 09 l e Donna Sg 2018-02-19 2018-02-20 Outpatient nullFlavo MNA [id number] Memoria 19:30:00 04:59:59 r Neuroscienc 07 l e Donna Bettencourt 2018-02-19 2018-02-19 Outpatient MHIE MHIE [id number] Memoria 14:30:00 14:30:00 07 cayden Bettencourt 2018-02-19 2018-02-19 Outpatient MHIE MHIE [id number] Memoria 14:30:00 14:30:00 07 cayden [place] 2018-01-12 2018-01-13 Outpatient nullFlavo [id number] Memoria 17:59:00 04:59:00 r [facility] 02 l Cardiology Tisha [facility] 2017-12-31 2018-01-01 Outpatient nullFlavo [facility] [id number] Memoria 11:40:00 04:59:00 r [place] 03 [facility] 2017-12-28 2017-12-28 Ambulatory nullFlavo MNA [id number] Memoria 17:30:00 17:30:00 Pre-Reg r Neurosurger 08 l y Paul Grant 2017-12-28 2017-12-28 Outpatient MHIE MHIE [id number] Memoria 12:30:00 12:30:00 08 [facility] 2017-12-28 2017-12-28 Outpatient MHIE MHIE [id number] Memoria 12:30:00 12:30:00 08 cayden [place] 2017-12-23 2017-12-25 Phone nullFlavo MNA [id number] [facility]oria 14:53:00 04:59:59 Message r Neuroscienc 08 l marcy Thompson [place] 2017-12-22 2017-12-24 Phone nullFlavo MNA [id number] [facility]oria 19:14:00 04:59:59 Message r Neuroscienc 07 l marcy Thompson [place] 2017-12-18 2017-12-20 Phone nullFlavo MNA [id number] [facility]oria 16:40:00 04:59:59 Message r Neurosurger 06 l y [facility] 2017-12-17 2017-12-19 Phone nullFlavo MNA [id number] Memoria 15:39:00 04:59:59 Message r Neuroscienc 05 l marcy Thompson [place] 2017-12-11 2017-12-12 Outpt Diag nullFlavo [facility] [id number] Memoria 17:57:00 04:59:00 Services r Outpatient 01 l Imaging [facility] 2017-12-10 2017-12-11 Outpatient nullFlavo [id number] Memoria 17:52:00 04:59:00 r Community 01 l Cardiology Tisha Thompson 2017-12-08 2017-12-09 Outpatient nullFlavo MNA [id number] [facility] 16:00:00 04:59:59 r Neuroscienc 06 l e Donna Sg 2017-12-08 2017-12-08 Outpatient MHIE MHIE [id number] Memoria 11:00:00 11:00:00 06 cayden Sg 2017-12-08 2017-12-08 Outpatient MHIE MHIE [id number] Memoria 11:00:00 11:00:00 06 cayden Sg 2017-12-03 2017-12-04 Outpatient nullFlavo MNA [id number] Memoria 20:30:00 04:59:59 r Neurosurger 05 l y [place] Rudy chris 2017-12-03 2017-12-03 Outpatient MHIE MHIE [id number] Memoria 15:30:00 15:30:00 05 cayden Bettencourt 2017-12-03 2017-12-03 Outpatient MHIE MHIE [id number] Memoria 15:30:00 15:30:00 05 cayden Bettencourt 2017-12-01 2017-12-03 Phone nullFlavo MNA [id number] [facility]oria 14:49:00 04:59:59 Message r Neuroscienc 04 l e Donna Sg 2017-10-21 2017-10-21 Ambulatory nullFlavo MNA [id number] [facility]oria 18:00:00 18:00:00 Pre-Reg r Neuroscienc 04 l e Donna Sg 2017-10-21 2017-10-21 Outpatient MHIE MHIE [id number] Memoria 13:00:00 13:00:00 04 cayden Bettencourt 2017-10-21 2017-10-21 Outpatient MHIE MHIE [id number] Memoria 13:00:00 13:00:00 04 cayden Bettencourt 2017-10-13 2017-10-15 Phone nullFlavo MNA [id number] Memoria 19:16:00 04:59:59 Message r Neurology 03 l Donna Sg 2017-09-22 2017-09-23 Outpatient nullFlavo MNA [id number] [facility] 17:30:00 05:59:59 r Neuroscienc 02 l e Donna Sg 2017-09-22 2017-09-22 Outpatient MHIE MHIE [id number] Memoria 11:30:00 11:30:00 02 cayden Bettencourt 2017-09-22 2017-09-22 Outpatient MHIE IE [id number] Memoria 11:30:00 11:30:00 02 cayden Bettencourt 2017-09-09 2017-09-09 Outpatient nullFlavo [id number] Memoria 18:40:00 18:40:00 r Community 00 l Cardiology Tisha Thompson 2017-09-03 2017-09-05 Phone nullFlavo MNA [id number] Memoria 22:44:00 05:59:59 Message r Neuroscienc 02 l e Donna Bettencourt 2017-08-31 2017-09-01 Outpatient nullFlavo MNA [id number] Memoria 19:30:00 05:59:59 r Neuroscienc 03 l e Donna Bettencourt 2017-08-31 2017-08-31 Outpatient MHIE IE [id number] Memoria 13:30:00 13:30:00 03 cayden Sg 2017-08-31 2017-08-31 Outpatient MHIE IE [id number] Memoria 13:30:00 13:30:00 03 cayden Bettencourt 2017-08-26 2017-08-28 Phone nullFlavo MNA [id number] [facility]oria 17:47:00 05:59:59 Message r Neurology 01 l Donna Bettencourt 2017-08-24 2017-08-26 Phone nullFlavo MNA [id number] Memoria 21:44:00 05:59:59 Message r Neurology 00 l Donna Bettencourt 2017-08-06 2017-08-07 Outpt Diag nullFlavo [facility] [id number] Memoria 17:51:00 05:59:00 Services r Outpatient 00 l Imaging Sg Thompson 2017-07-24 2017-07-25 Outpatient nullFlavo MNA [id number] Memoria 19:00:00 05:59:59 r Neuroscienc 01 l e Donna Bettencourt 2017-07-24 2017-07-25 Outpatient nullFlavo MNA [id number] Memoria 19:00:00 05:59:59 r Neuroscienc 01 l e Donna Bettencourt 2017-07-24 2017-07-25 Outpatient nullFlavo MNA [id number] Memoria 19:00:00 05:59:59 r Neuroscienc 01 Zara Bettencourt 2017-07-24 2017-07-24 Outpatient MHMISCHER MHMISCHER [id number] 13:00:00 23:59:59 2017-07-24 2017-07-24 Outpatient MHMISCHER MHMISCHER [id number] 13:00:00 23:59:59 2017-07-24 2017-07-24 Outpatient MHIE MHIE [id number] Memoria 13:00:00 13:00:00 cayden Bettencourt 2017-07-24 2017-07-24 Outpatient MHIE MHIE [id number] Memoria 13:00:00 13:00:00 cayden Bettencourt 2017-07-22 2017-07-24 Phone nullFlavo MNA [id number] Memoria 17:58:00 05:59:59 Message r Neurology 01 cayden Bettencourt 2017-07-22 2017-07-24 Phone nullFlavo MNA [id number] Memoria 17:58:00 05:59:59 Message r Neurology 01 cayden Bettencourt 2017-07-22 2017-07-24 Phone nullFlavo MNA [id number] Memoria 17:58:00 05:59:59 Message r Neurology 01 cayden Bettencourt 2017-07-22 2017-07-23 Outpatient MHMISCHER MHMISCHER [id number] 11:58:00 23:59:59 2017-07-22 2017-07-23 Outpatient MHMISCHER MHMISCHER [id number] 11:58:00 23:59:59 2017-04-06 2017-04-06 Emergency nullFlavo [facility] [id number] Mem[facility] 19:12:00 21:32:00 r Sg 02 [facility] 2017-04-06 2017-04-06 Emergency nullFlavo [facility] [id number] Memoria 19:12:00 21:32:00 r Sg 02 [facility] 2017-04-06 2017-04-06 Emergency nullFlavo [facility] [id number] Memoria 19:12:00 21:32:00 r [place] 02 [facility] 2017-04-06 2017-04-06 Outpatient Hinojosa, 2.16.840. 2.16.840.1. 3 [id number] 14:12:00 16:32:00 Rogerio 1.412623. [id number] 02 3.615.120 5.120 2017-04-06 2017-04-06 Outpatient Ashish 2.16.840. 2.16.840.1. 3 [id number] 14:12:00 16:32:00 Rogerio 1.342551. [id number] 02 3.615.120 5.120 2017-04-06 2017-04-06 Outpatient [facility] [id number] Memoria 13:00:00 13:00:00 00 Sg 2017-04-06 2017-04-06 Outpatient [facility] [id number] Memoria 13:00:00 13:00:00 00 [place] 2017-04-06 2017-04-06 Outpatient [facility] [id number] Memoria 13:00:00 13:00:00 00 [place] Results Test Description Test Time Test Comments Results Result Comments Source ECG 12 lead 2020-11-01 17:06:02 Test Item Value Reference Range Interpretation Comme nts Ventricular rate (test code = 253) Atrial rate (test code = 255) QRSD interval (test code = 260) QT interval (test code = 264) QTC interval (test code = 265) QRS axis 1 (test code = 268) T wave axis (test code = 270) EKG impression (test code = 273) Atrial fibrillation with rapid bakari tricular response-Right superior axis deviation-Pulmonary disease pattern-Right ventricular hypertrophy-Septal infarct (cited on or before 29-OCT-2020)-Abnormal ECG-In automated comparison with ECG of 29-OCT-2020 02:22,-Atrial fibrillation has replaced Sinus rhythm- [facility] 12 [id number] 17:06:02 Test Item Value Reference Range Interpretation Comments Ventricular rate (test code = 253) Atrial rate (test code = 255) QRSD interval (test code = 260) QT interval (test code = 264) QTC interval (test code = 265) QRS axis 1 (test code = 268) T wave axis (test code = 270) EKG impression (test Atrial fibrillation code = 273) with rapid ventricular response-Right superior axis deviation-Pulmonary disease pattern-Right ventricular hypertrophy-Septal infarct (cited on or before 29-OCT-2020)-Abnormal ECG-In automated comparison with ECG of 29-OCT-2020 02:22,-Atrial fibrillation has [facility] [id number] 17:06:02 Test Item Value Reference Range Interpretation Comments Ventricular rate (test code = 253) Atrial rate (test code = 255) QRSD interval (test code = 260) QT interval (test code = 264) QTC interval (test code = 265) QRS axis 1 (test code = 268) T wave axis (test code = 270) EKG impression (test Atrial fibrillation code = 273) with rapid ventricular response-Right superior axis deviation-Pulmonary disease pattern-Right ventricular hypertrophy-Septal infarct (cited on or before 29-OCT-2020)-Abnormal ECG-In automated comparison with ECG of 29-OCT-2020 02:22,-Atrial fibrillation has replaced Sinus rhythm- [facility]2021-04-12 18:36:35 Test Item Value Reference Range Interpretation Comments Urine culture No growth Specimen isolate (test after 24 InformationSpe cimen code = 42973-7) hours Source: [facility] Site: [facility] [id number] 18:36:35 Test Item Value Reference Range Interpretation Comments Urine culture No growth Specimen isolate (test after 24 InformationSpe cimen code = 84162-2) hours Source: [facility] Site: [facility] [id number] 18:36:35 Test Item Value Reference Range Interpretation Comments Urine culture No growth Specimen isolate (test after 24 InformationSpe cimen code = 35080-3) hours Source: [facility] Site: [facility] Abdomen Pelvis W [id number] 00:10:11CT ABDOMEN PELVIS W CONTRAST CLINICAL INDICATION: Nausea vomiting, Epigastric pain TECHNIQUE: Multidetector CT imaging of the abdomen and pelvis was performed following the intravenous administration of iodinated contrast with multiplanar reconstructions. CT imaging was performed with iterative reconstruction technique and/or automated exposure control to reduce radiation dose. COMPARISON: Abdominal CT performed on 04/23/2019. FINDINGS: LOWER THORAX: Aside from mild right basilar atelectasis, the visualized lungs are clear. LIVER: There is hepatic steatosis. There is an 11 mm cyst in segment 4A of the liver. The liver is otherwise normal. BILIARY: Normal. SPLEEN: Normal. PANCREAS: Normal. ADRENALS:Normal. KIDNEYS: No mass or hydronephrosis. Simple cysts in both kidneys that measure up to a maximum of 2.8 cm. GI: Large and small bowel are normal in caliber. There are no inflammatory changes. Appendix is visualized and appears normal. VASCULAR: Cavobiiliac stent graft located within the infrarenal IVC, both common, and both external iliac veins. The abdominal aorta is patent and normal in caliber. The portal venous system is patent. LYMPH NODES: No enlarged lymph nodes in the abdomen or pelvis.PELVIS: The urinary bladder is normal in appearance. BONES: There are no acute osseous abnormalities. There is lumbar spine fusion hardware. There are surgical changes related to cement augmentation ofthe L1 vertebral body. OTHER: There is no ascites or pneumoperitoneum. There are small, fat-containing right and left inguinal hernias. IMPRESSION: 1. No acute intra-abdominal abnormality is identified. 2. See above for chronic findings. [id number]-[id number] Interface, Radiology Results Incoming - 10/28/2020 7:[address] ABDOMEN PELVIS W CONTRASTCLINICAL INDICATION: Nausea vomiting, Epigastric painTECHNIQUE: Multidetector CT imaging of the abdo men and pelvis was performed following the intravenous administration of iodinated contrast with multiplanar reconstructions. CT imaging was performed with iterative reconstruction technique and/or automated exposure control to reduce radiation dose.COMPARISON: Abdominal CT performed on 04/23/2019.FINDI NGS:LOWER THORAX: Aside from mild right basilar atelectasis, the visualized lungs are clear.LIVER: There is hepatic steatosis. There is an 11 mm cyst in segment 4A of the liver. The liver is otherwise normal.BILIARY: Normal. SPLEEN: Normal.PANCREAS: Normal.ADRENALS: Normal. KIDNEYS: No mass or hydronephrosis. Simple cysts in both kidneys that measure up to a maximum of 2.8 cm.GI: Large and small bowel are normal in caliber. There are no inflammatory changes. Appendix is visualized and appears normal.VASCULAR: Cavobiiliac stent graft located within the infrarenal IVC, both common, and both external iliac veins. The abdominal aorta is patent and normal in caliber. The portal venous system is patent.LYMPH NODES: No enlarged lymph nodes in the abdomen or pelvis.PELVIS: The urinary bladder is normal in appearance.BONES: There are no acute osseous abnormalities. There is lumbar spine fusion hardware. There are surgical changes related to cement augmentation of the L1 vertebral body.OTHER: There is no ascites or pneumoperitoneum. There are small, fat-containing right and left inguinal hernias.IMPRESSION:1. No acute intra-abdominal abnormality is identified.2. See above for chronic findings.[facility] Abdomen 1 [id number] 17:40:27EXAMINATION: XR ABDOMEN 1 PORTABLE CLINICAL HISTORY: Nausea vomiting IMPRESSION: There are vascular grafts present. There are postoperative changes in the lumbar spine. Intestinal gas pattern is nonspecific. There is no free intraperitoneal air. [facility]-[id number] Interface, Radiology Results 10/28/2020 12:43 PM CDT EXAMINATION:XR ABDOMEN 1 PORTABLECLINICAL HISTORY: Nausea vomitingIMPRESSION:There are vascular grafts present. There are postoperative changes in the lumbar spine. Intestinal gas pattern is nonspecific. There is no free intraperitoneal air.[facility]-[id number] [facility] 1 [id number] 13:09:24EXAMINATION: XR CHEST 1 PORTABLE CLINICAL HISTORY: preop COMPARISON: 10/08/2020 IMPRESSION: 1.Cardi omediastinal silhouette is stable. The central vasculature is normal. 2.There are some mild atelectatic changes versus scarring in the right base, stable. The lungs are otherwise clear without consolidation or effusion. There is no pneumothorax [id number] Interface, Radiology Results Incoming - 10/28/2020 8:12 AM CDT EXAMINATION: XR CHEST1 PORTABLECLINICAL HISTORY: preopCOMPARISON: 10/08/2020IMPRESSION:1.Cardiomediastinal silhouette is stable. The central vasculature is normal.2.There are some mild atelectatic changes versus scarring in the right base, stable. The lungs are otherwise clear without consolidation or effusion. There isno pneumothorax1D2RAD_PS08MethKosciusko Community HospitalMiagzgxsZCDB-YwN-2 (COVID-19) RNA [Presence] in Respiratory specimen by KAMAR with probe detection 2020-10-28 04:14:06 Test Item Value Reference Range Interpretation Comments SARS-CoV-2 (COVID-19) RNA Not detected Not-Detected [Presence] in Respiratory specimen by KAMAR with probe detection (test code = 15989-2) [facility] HospitalHybrid or [id number] 17:33:49See operative report for the same dayMormon HospitalArterial [id number] 17:27:06Tal Ríos Jr., MD 01/05/2021 2:37 PMArterial line Performed by: anesthesia residentAnesthesiologist: Tal Ríos Jr., MDResident/PEANUT SORTER/AA: Hitesh Ibanez CRNAAuthorized by: Tal Ríos Jr., MD Pre-procedure: patient identified, IV checked, site and side verified, risks and benefits di scussed, procedure verified, surgical consent complete, patient position confirmed, monitors and equipment checked, pre-op evaluation complete and timeout performed prior to procedure MSBT: antiseptic used, all elements of maximal sterile barrier technique followed, hand hygiene performed, cap/gown use d by other personnel and solutions labeled Indications: [...] tolerated the procedure well with no immediate rwckcsaakzeanNwnlgx6906-61-01 17:17:00Hitesh Ibanez CRNA 10/11/2020 12:46 PMAirway Date/Time: 10/11/2020 12:17 PM Location: OR Performedby: LATA/AAAnesthesiologist: Tal Ríos Jr., MDResident/PEANUT SORTER/AA: Hitesh Ibanez, CRNAAuthorized by: Tal Ríos Jr., MD Urgency: [...] Laryngoscopic view: Grade I - full view ofglottisRapid Sequence Induction (RSI): No Modified RSI: No Number of Attempts at Approach: 1ECG Pre/Post [id number] 00:40:58 Test Item Value Reference Range Interpretation Comments Ventricular rate (test code = 253) Atrial rate (test code = 255) ID interval (test code = 266) QRSD interval (test code = 260) QT interval (test code = 264) QTC interval (test code = 265) P axis 1 (test code = 267) QRS axis 1 (test code = 268) T wave axis (test code = 270) EKG impression (test Normal sinus code = 273) rhythm-Left axis deviation-Pulmonary disease pattern-Abnormal ECG-In automated comparison with ECG of 30-MAY-2019 16:41,-Incomplete right bundle branch block is no longer present- [facility] Pre/Post [id number] 00:40:58 Test Item Value Reference Range Interpretation Comments Ventricular rate (test code = 253) Atrial rate (test code = 255) ID interval (test code = 266) QRSD interval (test code = 260) QT interval (test code = 264) QTC interval (test code = 265) P axis 1 (test code = 267) QRS axis 1 (test code = 268) T wave axis (test code = 270) EKG impression (test Normal sinus code = 273) rhythm-Left axis deviation-Pulmonary disease pattern-Abnormal ECG-In automated comparison with ECG of 30-MAY-2019 16:41,-Incomplete right bundle branch block is no longer present- [facility] HospitalEC[facility] Pre/Post [id number] 00:40:58 Test Item Value Reference Range Interpretation Comments Ventricular rate (test code = 253) Atrial rate (test code = 255) ID interval (test code = 266) QRSD interval (test code = 260) QT interval (test code = 264) QTC interval (test code = 265) P axis 1 (test code = 267) QRS axis 1 (test code = 268) T wave axis (test code = 270) EKG impression (test Normal sinus code = 273) rhythm-Left axis deviation-Pulmonary disease pattern-Abnormal ECG-In automated comparison with ECG of 30-MAY-2019 16:41,-Incomplete right bundle branch block is no longer present- [facility]ARS[facility] ([facility]) RNA [Presence] in Respiratory specimen by KAMAR with probe [id number] 21:03:56 Test Item Value Reference Range Interpretation Comments SARS-CoV-2 (COVID-19) RNA Not detected Not-Detected [Presence] in Respiratory specimen by KAMAR with probe detection (test code = 77943-3) [facility] HospitalXR [facility] 2 [id number] 19:03:33EXAMINATION: XR CHEST 2 VW CLINICAL HISTORY: 69 years Male I87.1 Compression of vein, R60.0 Localized edema, surgery COMPARISON: 05/30/2019 IMPRESSION: 1.The cardiomediastinal silhouette is normal.2.Noevidence pulmonary edema. No focal consolidations. Minimal atelectasis right lung base.3.Regional skeletal structures are diffusely osteopenic. [facility]-YU65YYZIEu Interface, Radiology Results Incoming - 10/08/2020 2:06 PM CDT EXAMINATION: XR CHEST 2 VWCLINICAL HISTORY: 69 years Male I87.1 Compression of vein, R60.0 Localized edema, surgeryCOMPARISON: 05/30/2019IMPRESSION:1.The cardiomediastinal silhouette is normal.2.No evidence pulmonary edema. No focal consolidations. Minimal atelectasis right lung base.3.Regional skeletal structures are diffusely osteopenic.[facility]-SA86AEMV [facility] at [id number] 01:41:00 Test Item Value Reference Range Interpretation Comments APTT Patient (test See_Comment [Automat ed code = 3173-2) message] The system which generated this result transmitted reference range : 23 - 38 Seconds . The reference range was not used to interpr et this result as normal/abnormal . TRISTA (test code = TRISTA) The [facility] patient population mean normal value for aPTT is 30 seconds. Lab Interpretation Normal (test code = 08341-1) [facility] TexasProthrombin Time (PT) / [id number] 01:39:00 Test Item Value Reference Range Interpretation Comments PROTIME PATIENT (test See_Comment H [Auto mated message] code = 5964-2) The system wh ich generated this result transmitted ref erence range: 12.0 - 1 4.7 Seconds. The reference range was not used to int erpret this result as normal/abnormal . INR (test code = 6301-6) Nor mal INR <1.1; Warfarin Therap eutic range 2.0 to 3. 0 or 2.5 to 3.5, dep ending upon the indica tions. Lab Interpretation (test Abnormal code = 47494-0) [facility] TexasTroponin [id number] 01:34:00 Test Item Value Reference Range Interpretation Comments TROPONIN I (test <0.012 See_Comment [Automated code = 0842358221) message] The system which generated this result transmitted reference range : <=0.034 ng/mL. The reference range was not used to interpr et this result as normal/abnormal . TRISTA (test code = Equal or Less than TRISTA) 0.034 ng/ml---Normal ?Note: Cardiac troponin begins to rise 3-4 hours after the onset of ischemia. Repeat in 4-6 hours if the sample was drawn within 3-4 hours of the onset of the symptom and found normal. Between 0.035 and 0.120 ng/mL--- Borderline. Questionable myocardial injury or necrosis ? ?Note: Serial measurement may be necessary to confirm or exclude the diagnosis of myocardial injury or necrosis; Clinical correlation (symptoms, EKGs, imaging studies, and others) required; Repeat in 4-6 hours if clinically indicated. ? Equal or Higher than 0.121 ng/mL---Abnormal. Myocardial Injury or Necrosis Likely ? Biotin has been reported to cause a negative bias, interpret results relative to patient's use of biotin. ? Lab Interpretation Normal (test code = 58072-2) [facility] TexasN-TERMINAL [id number] 01:31:00 Test Item Value Reference Range Interpretation Comments NT-proBNP (test code 33 pg/mL See_Comment [Autom ated = 8565067521) message] The system which generated this result transmitted reference range : <=125. The reference range was not used to interpret this result as normal/abnormal . TRISTA (test code = TRISTA) Biotin has been reported to cause a negative bias, interpret results relative to patient's use of biotin. Lab Interpretation Normal (test code = 38305-6) [facility] TexasCBC with [id number] 01:25:00 Test Item Value Reference Range Interpretation Comments WBC (test code = See_Comment [Automated 6790-2) message] The sy stem which generated this result transmitted reference range : 4.20 - 10.70 10*3/?L. The reference range was not used to interpret this result as normal/abnormal . RBC (test code = See_Comment [Automated 915-8) message] The sy stem which generated this result transmitted reference range : 4.26 - 5.52 10*6/?L. The reference range was not used to interpret this result as normal/abnormal . HGB (test code = 16.2 g/dL 12.2-16.4 718-7) HCT (test code = 49.0 % 38.4-49.3 4544-3) MCV (test code = 93.9 fL 81.7-95.6 787-2) MCH (test code = 31.0 pg 26.1-32.7 785-6) MCHC (test code = 33.1 g/dL 31.2-35 786-4) RDW-SD (test code = 49.6 fL 38.5-51.6 11228-7) RDW-CV (test code = 14.4 % 12.1-15.4 788-0) PLT (test code = See_Comment H [Automated 777-3) message] The sy stem which generated this result transmitted reference range : 150 - 328 10*3/ ?L. The reference r kevin was not used to interpret this result as normal/abnormal . MPV (test code = 9.2 fL 9.8-13 L 86025-7) NRBC/100 WBC (test See_Comment [Automat ed code = 0830323385) message] The system which generated this result transmitted reference range : 0.0 - 10.0 /100 WBCs. The refer ence range was not u sed to interpret th is result as normal/abnormal . NRBC x10^3 (test code <0.01 See_Comment [Auto mated = 5561171726) message] The s ystem which generated this result transmitted reference range : 10*3/?L. The reference range was not used to interpret this result as normal/abnormal . GRAN MAT (NEUT) % 78.6 % (test code = 770-8) IMM GRAN % (test code 0.40 % = 3189265332) LYMPH % (test code = 11.4 % 736-9) MONO % (test code = 6.8 % 5905-5) EOS % (test code = 2.3 % 713-8) BASO % (test code = 0.5 % 706-2) GRAN MAT x10^3(ANC) 6.61 10*3/uL 1.99-6.95 (test code = 3163609225) IMM GRAN x10^3 (test 0.03 10*3/uL 0-0.06 code = 5860268754) LYMPH x10^3 (test code 0.96 10*3/uL 1.09-3.23 L = 731-0) MONO x10^3 (test code 0.57 10*3/uL 0.36-1.02 = 742-7) EOS x10^3 (test code = 0.19 10*3/uL 0.06-0.53 711-2) BASO x10^3 (test code 0.04 10*3/uL 0.01-0.09 = 704-7) Lab Interpretation Abnormal (test code = 86236-2) [facility] (NA, K, CL, CO2, GLUCOSE, BUN, CREATININE, CA)2020-07-16 01:24:00 Test Item Value Reference Range Interpretation Comments NA (test code = 139 mmol/L 135-145 8155225416) K (test code = 4.3 mmol/L 3.5-5 4470233021) CL (test code = 100 mmol/L 98-108 2531492868) CO2 TOTAL (test code = 31 mmol/L 23-31 7620750642) AGAP (test code = 2-16 5130774482) BUN (test code = 11 mg/dL 7-23 7505441944) GLUCOSE (test code = 118 mg/dL 70-110 H 4517627410) CREATININE (test code = 0.80 mg/dL 0.6-1.25 2991742555) CALCIUM (test code = 9.2 mg/dL 8.6-10.6 6044001882) eGFR Calculation mL/min/1.73m2 (Non-) (test code = 3898511684) eGFR Calculation mL/min/1.73m2 () (test code = 4111280987) TRISTA (test code = TRISTA) Association of Glomerular Filtration Rate (GFR) and Staging of Kidney Disease* + --+ --+ ------+| GFR (mL/min/1.73 m2) ?| With Kidney Damage ?| ?Without Kidney Damage+ --------+ --------+ +| ?>90 ?| ?Stage one ?| ? Normal ?+ ---+ ---+ -------+| ?60-89 ?| ?Stage two ?| ? Decreased GFR ? + --+ --+ ------+| ?30-59 ?| ?Stage three ?| ? Stage three ? + --+ --+ ------+| ?15-29 ?| ?Stage four ? | ? Stage four ?+ ---+ ---+ -------+| ?<15 (or dialysis) ? ?| ?Stage five ? | ? Stage five ?+ ---+ ---+ -------+ *Each stage assumes the associated GFR level has been in effect for at least three months. ?Stages 1 to 5, with or without kidney disease, indicate chronic kidney disease. Notes: Determination of stages one and two (with eGFR >59mL/min/1.73 m2) requires estimation of kidney damage for at least three months as defined by structural or functional abnormalities of the kidney, manifested by either:Pathological abnormalities or Markers of kidney damage (including abnormalities in the composition of the blood or urine or abnormalities in imaging tests). Lab Interpretation Abnormal (test code = 00137-8) [facility] Texas[facility] Function Panel (ALB, T.PRO, BILI T, BU/BC, ALT, AST, ALK PHOS)2020-07-16 01:24:00 Test Item Value Reference Range Interpretation Comments TOTAL BILI (test code = 0188965763) 0.5 mg/dL 0.1-1.1 BILI UNCON (test code = 8225121723) 0.4 mg/dL 0.1-1.1 BILI CONJ (test code = 5198567829) 0.0 mg/dL 0-0.3 T PROTEIN (test code = 5156986886) 7.2 g/dL 6.3-8.2 ALBUMIN (test code = 6328786843) 4.2 g/dL 3.5-5 ALK PHOS (test code = 2166238192) 82 U/L 34-122 ALTv (test code = 1742-6) 34 U/L 5-50 AST(SGOT) (test code = 9910959970) 30 U/L 13-40 Lab Interpretation (test code = Normal 61258-7) [facility] TexasCOVID-19 (ID NOW RAPID TESTING)2020-07-16 01:23:00 Test Item Value Reference Range Interpretation Comments SARS-CoV-2 Rapid ID NOW Positive Not Detected A (test code = 94718-9) TRISTA (test code = TRISTA) ID NOW COVID-19 Assay is an isothermal nucleic acid amplification test intended for the qualitative detection of nucleic acid from SARS-CoV-2 viral RNA in nasopharyngeal (SILVER MINER) specimens. It is used under Emergency Use Authorization (EUA) by FDA. The limit of detection (LOD) of the assay is 125 Genome Equivalents/mL. A positive result is indicative of the presence of SARS-CoV-2 RNA. ?Clinical correlation with patient history and other diagnostic information is necessary to determine patient infection status. A negative (Not Detected) result does not preclude SARS-CoV-2 infection. In patients with clinical symptoms and other tests that are consistent with SARS-CoV-2 infection, negative results should be treated as presumptive negative and a new specimen should be tested with alternative PCR molecular test. Invalid: Please collect a new specimen for repeat patient testing if clinically indicated. Lab Interpretation Abnormal (test code = 21435-4) [facility] 1 [id number] 00:46:41Impression: Bibasilar atelectasis.Exam: XR CHEST 1 07/15/2020 6:35 PM Clinical History: dyspnea Comparison: None Technique: frontal view of the chest Findings:Bibasilar atelectasis are noted.No pleural effusion. ?No pneumothorax. The cardiac size is within normal limits. [facility], Radiant Results Inft User - 07/15/2020 6:47 PM CSTExam: XR CHEST 1 07/15/2020 6:35 PMClinical History: dyspnea Comparison: None Technique: frontal view of the chestFindings:Bibasilar atelectasis are noted.No pleural effusion. No pneumothorax. The cardiac size is within normal limits. IMPRESSIONImpression: Bibasilar atelectasis.[facility] TexasERYTHROMYCIN:SUSC:PT:ISOLATE:ORDQN:[id number] 17:15:00 Test Item Value Reference Range Interpretation Comments Gram Stain Report No Wbc'S Or Organisms (test code = Gram Seen Stain Report) [facility]annERYTHROMYCIN:SUSC:PT:ISOLATE:ORDQN:[id number] 17:15:00 Test Item Value Reference Range Interpretation Comments Culture: Rare Staphylococcus Aspirate/Body Species, Not S. aureus , Fluid/Tissue (test Upon Supplemental Testing, code = Culture: This Isolate Was Not Found Aspirate/Body To Be Resistant To Fluid/Tissue) Clindamycin By An Inducible Mechanism. [facility]ERYTH[facility]YCIN:SUSC:PT:ISOLATE:ORDQN:[id number] 17:15:00 Test Item Value Reference Range Interpretation Comments Staphylococcus Species, Staphylococcus Not S. aureus (test Species, Not S. aureus code = Staphylococcus Species, Not S. aureus) [facility] HospitalCulture: [id number] 17:15:00 Test Item Value Reference Range Interpretation Comments Culture: Anaerobic No Anaerobes Isolated (test code = Culture: Anaerobic) [facility] HospitalCulture: [id number] 18:30:00 Test Item Value Reference Range Interpretation Comments Culture: Anaerobic No Anaerobes Isolated (test code = Culture: Anaerobic) [facility] HospitalGram Stain [id number] 18:30:00 Test Item Value Reference Range Interpretation Comments Gram Stain Report No Wbc'S Or Organisms (test code = Gram Seen Stain Report) [facility] HospitalCulture: Aspirate/Body Fluid/[id number] 18:30:00 Test Item Value Reference Range Interpretation Comments Culture: Growth In Subculture Broth Aspirate/Body Only : Gram Pos Rods Fluid/Tissue (test Suggestive of Diphtheroids code = Culture: Staphylococcus Species, Not Aspirate/Body S. aureus Fluid/Tissue) [facility] [id number] 13:44:00 Test Item Value Reference Range Interpretation [...] 38-126 N (test code = ALKP) PROTHROMBIN [id number] 13:32:00 Test Item Value Reference Range Interpretation Comments PROTHROMBIN TIME 10.1 SECONDS 9.6-11.6 N PATIENT (test code = PTP) INTERNATIONAL NORMAL 1.0 0.8-1.1 N The INR is to be RATIO (test code = used only for INR) monitoring oral anticoagulantth erap y. INDICATION INR VALUE ---- ---- ---- -------1. Prophylaxis, de ep venous thrombos is, including high risk surgery. 2.0 - 3.0 2. Prophylaxis, deep venous thrombosis, hip surgery, treatm ent for deep venous thrombosis or pulmonary prevention of systemic emboli sm in patients wit h valvular heart disease, atrial fibrillation, tissue heart va lve, or acute myocar dial infarction. 2.0 - 3.0 3. Bank Worker al prosthesis hear t valves, recurre nt systemic emboli sm. 3.0 - 4.5 PTT [id number] 13:32:00 Test Item Value Reference Range Interpretation Comments PTT ACTIVATED (test code = APTT) 27.1 SECONDS 22.0-33.0 N CBC W/AUTO [id number] 13:22:00 Test Item Value Reference Range Interpretation [...] = 0.00 K/mm3 0.0-0.1 N NRBC#) PROTHROMBIN [id number] 16:01:00 Test Item Value Reference Range Interpretation Comments PROTHROMBIN TIME 10.5 SECONDS 9.6-11.6 N PATIENT (test code = PTP) INTERNATIONAL NORMAL 1.0 0.8-1.1 N The INR is to be RATIO (test code = used only for INR) monitoring oral anticoagulantth erap y. INDICATION I NR VALUE ---- ---- ---- -------1. Prophylaxis, de ep venous thrombos is, including high risk surgery. 2.0 - 3.0 2. Prophylaxis, deep venous thrombosis, hip surgery, treatm ent for deep venous thrombosis or pulmonary prevention of systemic emboli sm in patients wit h valvular heart disease, atrial fibrillation, tissue heart va lve, or acute myocar dial infarction. 2. 0 - 3.0 3. Bank Worker al prosthesis hear t valves, recurre nt systemic emboli sm. 3.0 - 4.5 Comments to [employer] Developer: TAKES XARELTOPTT [id number] 16:01:00 Test Item Value Reference Range Interpretation Comments PTT ACTIVATED (test code = APTT) 30.4 SECONDS 22.0-33.0 N Comments to [employer] Developer: TAKES XARELTOCARDIAC [id number] 19:37:00 Test Item Value Reference Range Interpretation Comments Troponin-I (test code no gt See_Comment [Auto mated message] The = Troponin-I) system which g enerated this result transmit caio reference range : <=0.40. The reference r kevin was not used to interpr et this result as aileen l/abnormal. [facility] HermannCARDIAC [id number] 19:37:00 Test Item Value Reference Range Interpretation Comments Troponin-I (test code no gt See_Comment [Auto mated message] The = Troponin-I) system which g enerated this result transmit caio reference range : <=0.40. The reference r kevin was not used to interpr et this result as aileen l/abnormal. [facility] HermannCARDIAC [id number] 19:37:00 Test Item Value Reference Range Interpretation Comments CK MB (test code = CK MB) 7.4 0.5-3.6 [facility] HermannCARDIAC [id number] 19:37:00 Test Item Value Reference Range Interpretation Comments CK MB (test code = CK MB) 7.4 0.5-3.6 [facility] HermannCARDIAC [id number] 19:37:00 Test Item Value Reference Range Interpretation Comments Total CK (test code = Total CK) 215 12-191 [facility]annCARDIAC [id number] 19:37:00 Test Item Value Reference Range Interpretation Comments Total CK (test code = Total CK) 215 12-191 [facility]annCARDI [id number] 19:37:00 Test Item Value Reference Range Interpretation Comments CK-MB INDEX (test 3.4 See_Comment [Automate d message] The code = CK-MB INDEX) system [employer] generated this result transmit caio reference range : <=2.5. The reference range was not used to interpr et this result as aileen l/abnormal. [facility]2017-09-18 19:37:00 Test Item Value Reference Range Interpretation Comments CK-MB INDEX (test 3.4 See_Comment [Automate d message] The code = CK-MB INDEX) system [employer] generated this result transmit caio reference range : <=2.5. The reference range was not used to interpr et this result as aileen l/abnormal. [facility]2017-09-18 19:37:00 Test Item Value Reference Range Interpretation Comments A/G Ratio (test code = A/G Ratio) 1.1 0.7-1.6 [facility]2017-09-18 19:37:00 Test Item Value Reference Range Interpretation Comments A/G Ratio (test code = A/G Ratio) 1.1 0.7-1.6 [facility]2017-09-18 19:37:00 Test Item Value Reference Range Interpretation Comments AGAP (test code = AGAP) 8.3 10.0-20.0 [facility]2017-09-18 19:37:00 Test Item Value Reference Range Interpretation Comments AGAP (test code = AGAP) 8.3 10.0-20.0 [facility]2017-09-18 19:37:00 Test Item Value Reference Range Interpretation Comments Globulin (test code = Globulin) 3.6 2.7-4.2 [facility]2017-09-18 19:37:00 Test Item Value Reference Range Interpretation Comments Globulin (test code = Globulin) 3.6 2.7-4.2 [facility]2017-09-18 19:37:00 Test Item Value Reference Range Interpretation Comments B/C Ratio (test code = B/C Ratio) 21 6-25 [facility]2017-09-18 19:37:00 Test Item Value Reference Range Interpretation Comments eGFR (test code = eGFR) 93 [facility]2017-09-18 19:37:00 Test Item Value Reference Range Interpretation Comments B/C Ratio (test code = B/C Ratio) 21 6-25 [facility]2017-09-18 19:37:00 Test Item Value Reference Range Interpretation Comments eGFR (test code = eGFR) 93 [facility]2017-09-18 19:37:00 Test Item Value Reference Range Interpretation Comments Bili Total (test code = Bili Total) 0.4 0.2-1.3 [facility]2017-09-18 19:37:00 Test Item Value Reference Range Interpretation Comments Bili Total (test code = Bili Total) 0.4 0.2-1.3 [facility]2017-09-18 19:37:00 Test Item Value Reference Range Interpretation Comments Alk Phos (test code = Alk Phos) 109 39-136 [facility]2017-09-18 19:37:00 Test Item Value Reference Range Interpretation Comments Alk Phos (test code = Alk Phos) 109 39-136 [facility]2017-09-18 19:37:00 Test Item Value Reference Range Interpretation Comments ASPARTATE TRANSAMINASE 31 See_Comment [Aut omated message] (test code = ASPARTATE The s ystem which TRANSAMINASE) generated this result transmitted ref erence range: <=37. Th e reference range was not used to interpr et this result as normal/abnormal . [facility]2017-09-18 19:37:00 Test Item Value Reference Range Interpretation Comments ASPARTATE TRANSAMINASE 31 See_Comment [Aut omated message] (test code = ASPARTATE The s ystem which TRANSAMINASE) generated this result transmitted ref erence range: <=37. Th e reference range was not used to interpr et this result as normal/abnormal . [facility]2017-09-18 19:37:00 Test Item Value Reference Range Interpretation Comments ALANINE AMINOTRANSFERASE 40 See_Comment [A utomated message] (test code = ALANINE The sys tem which AMINOTRANSFERASE) generated this result transmitted ref erence range: <=65. Th e reference range was not used to int erpret this result as normal/abnormal . [facility]2017-09-18 19:37:00 Test Item Value Reference Range Interpretation Comments ALANINE AMINOTRANSFERASE 40 See_Comment [A utomated message] (test code = ALANINE The sys tem which AMINOTRANSFERASE) generated this result transmitted ref erence range: <=65. Th e reference range was not used to int erpret this result as normal/abnormal . [facility]2017-09-18 19:37:00 Test Item Value Reference Range Interpretation Comments Total Protein (test code = Total 7.4 6.4-8.4 Protein) [facility]2017-09-18 19:37:00 Test Item Value Reference Range Interpretation Comments Total Protein (test code = Total 7.4 6.4-8.4 Protein) [facility]2017-09-18 19:37:00 Test Item Value Reference Range Interpretation Comments Albumin Lvl (test code = Albumin Lvl) 3.8 3.5-5.0 [facility]2017-09-18 19:37:00 Test Item Value Reference Range Interpretation Comments Albumin Lvl (test code = Albumin Lvl) 3.8 3.5-5.0 [facility]2017-09-18 19:37:00 Test Item Value Reference Range Interpretation Comments Calcium Lvl (test code = Calcium Lvl) 8.9 8.5-10.5 [facility]2017-09-18 19:37:00 Test Item Value Reference Range Interpretation Comments Calcium Lvl (test code = Calcium Lvl) 8.9 8.5-10.5 [facility]2017-09-18 19:37:00 Test Item Value Reference Range Interpretation Comments CO2 (test code = CO2) [facility]2017-09-18 19:37:00 Test Item Value Reference Range Interpretation Comments CO2 (test code = CO2) [facility]2017-09-18 19:37:00 Test Item Value Reference Range Interpretation Comments Sodium Lvl (test code = Sodium Lvl) 138 135-145 [facility]2017-09-18 19:37:00 Test Item Value Reference Range Interpretation Comments Sodium Lvl (test code = Sodium Lvl) 138 135-145 [facility]2017-09-18 19:37:00 Test Item Value Reference Range Interpretation Comments Potassium Lvl (test code = Potassium 4.3 3.5-5.1 Lvl) [facility]2017-09-18 19:37:00 Test Item Value Reference Range Interpretation Comments Potassium Lvl (test code = Potassium 4.3 3.5-5.1 Lvl) [facility]2017-09-18 19:37:00 Test Item Value Reference Range Interpretation Comments Chloride Lvl (test code = Chloride Lvl) 106 95-109 [facility]2017-09-18 19:37:00 Test Item Value Reference Range Interpretation Comments Chloride Lvl (test code = Chloride Lvl) 106 95-109 [facility]2017-09-18 19:37:00 Test Item Value Reference Range Interpretation Comments Creatinine Lvl (test code = Creatinine 0.80 0.50-1.40 Lvl) [facility]2017-09-18 19:37:00 Test Item Value Reference Range Interpretation Comments Creatinine Lvl (test code = Creatinine 0.80 0.50-1.40 Lvl) [facility]2017-09-18 19:37:00 Test Item Value Reference Range Interpretation Comments BUN (test code = BUN) 17 02-07 [facility]2017-09-18 19:37:00 Test Item Value Reference Range Interpretation Comments BUN (test code = BUN) 17 02-07 [facility]2017-09-18 19:37:00 Test Item Value Reference Range Interpretation Comments Glucose Lvl (test code = Glucose Lvl) 109 70-99 [facility]2017-09-18 19:37:00 Test Item Value Reference Range Interpretation Comments Glucose Lvl (test code = Glucose Lvl) 109 70-99 [facility]CzcgaanUVCSOPZYKE2963-00-11 19:37:00 Test Item Value Reference Range Interpretation Comments Segs-Bands # (test code = Segs-Bands #) 6.5 1.5-8.1 [facility] CenterVzvrorfQXNMORCEKE1029-59-38 19:37:00 Test Item Value Reference Range Interpretation Comments Segs-Bands # (test code = Segs-Bands #) 6.5 1.5-8.1 [facility] CenterXidmhseMNIFTYVFAE7414-70-75 19:37:00 Test Item Value Reference Range Interpretation Comments Monocytes # (test code 0.6 See_Comment [Aut omated message] The = Monocytes #) system which generated this result tra nsmitted reference range : <=0.8. The reference r kevin was not used to int erpret this result as normal/abnormal . [facility] CenterSsximgnFLFZJWFZXO2468-94-46 19:37:00 Test Item Value Reference Range Interpretation Comments Monocytes # (test code 0.6 See_Comment [Aut omated message] The = Monocytes #) system which generated this result tra nsmitted reference range : <=0.8. The reference r kevin was not used to int erpret this result as normal/abnormal . [facility] CenterZsvzobxRCEIUOHJJD7812-12-35 19:37:00 Test Item Value Reference Range Interpretation Comments Lymphocytes # (test code = Lymphocytes 1.6 1.0-5.5 #) [facility] CenterIxstvdqXDONWYRCQV4522-71-27 19:37:00 Test Item Value Reference Range Interpretation Comments Lymphocytes # (test code = Lymphocytes 1.6 1.0-5.5 #) [facility] CenterAzcywcuEONJLVWNKX6540-33-69 19:37:00 Test Item Value Reference Range Interpretation Comments Eosinophils # (test code 0.3 See_Comment [A utomated message] The = Eosinophils #) system [facility] [employer] generated this result tra nsmitted reference range : <=0.5. The reference r kevin was not used to int erpret this result as normal/abnormal . [facility] CenterTbaibjdGZBBZCRKCS7486-28-65 19:37:00 Test Item Value Reference Range Interpretation Comments Eosinophils # (test code 0.3 See_Comment [A utomated message] The = Eosinophils #) system [employer] generated this result tra nsmitted reference range : <=0.5. The reference r kevin was not used to int erpret this result as normal/abnormal . [facility] CenterVvgovfeAJGJZRMLPX0168-69-48 19:37:00 Test Item Value Reference Range Interpretation Comments Basophils (test code = 0.6 See_Comment [Aut omated message] The Basophils) system which ge nerated this result tra nsmitted reference range : <=1.0. The reference r kevin was not used to int erpret this result as normal/abnormal . [facility] CenterFzhiwzxAQKULYHYJW3549-72-73 19:37:00 Test Item Value Reference Range Interpretation Comments Basophils (test code = 0.6 See_Comment [Aut omated message] The Basophils) system which ge nerated this result tra nsmitted reference range : <=1.0. The reference r kevin was not used to int erpret this result as normal/abnormal . [facility] CenterDvnqvyzMOEQTMGKOO0750-07-88 19:37:00 Test Item Value Reference Range Interpretation Comments Monocytes (test code = Monocytes) 6.1 2.0-12.0 [facility] CenterDwftknkGCXLTJECFT5248-08-96 19:37:00 Test Item Value Reference Range Interpretation Comments Monocytes (test code = Monocytes) 6.1 2.0-12.0 [facility] CenterWtgvzuzNBERITTCOA9866-55-91 19:37:00 Test Item Value Reference Range Interpretation Comments Eosinophils (test code = 3.0 See_Comment [A utomated message] The Eosinophils) system which ge nerated this result tra nsmitted reference range : <=4.0. The reference r kevin was not used to int erpret this result as normal/abnormal . [facility] CenterXzqtapgLJJEDECFFA8766-53-22 19:37:00 Test Item Value Reference Range Interpretation Comments Eosinophils (test code = 3.0 See_Comment [A utomated message] The Eosinophils) system which ge nerated this result tra nsmitted reference range : <=4.0. The reference r kevin was not used to int erpret this result as normal/abnormal . [facility] CenterItmgotlNKOVYYCSOD3671-24-85 19:37:00 Test Item Value Reference Range Interpretation Comments Basophils # (test code 0.1 See_Comment [Aut omated message] The = Basophils #) system which generated this result tra nsmitted reference range : <=0.2. The reference r kevin was not used to int erpret this result as normal/abnormal . [facility] CenterLzktxldPFDPZTEFIX0011-85-36 19:37:00 Test Item Value Reference Range Interpretation Comments Basophils # (test code 0.1 See_Comment [Aut omated message] The = Basophils #) system which generated this result tra nsmitted reference range : <=0.2. The reference r kevin was not used to int erpret this result as normal/abnormal . [facility] CenterUumekgnGPLABPUUCK6851-42-07 19:37:00 Test Item Value Reference Range Interpretation Comments Lymphocytes (test code = Lymphocytes) 18.2 20.0-40.0 [facility] CenterVxfbzymLHMAUMRXZQ0388-07-12 19:37:00 Test Item Value Reference Range Interpretation Comments Lymphocytes (test code = Lymphocytes) 18.2 20.0-40.0 [facility] CenterPqktdscCPZFQMSFIU0277-25-92 19:37:00 Test Item Value Reference Range Interpretation Comments Segs (test code = Segs) 72.1 45.0-75.0 [facility] CenterFcnohdaMUEMZTUKOU7270-51-23 19:37:00 Test Item Value Reference Range Interpretation Comments Segs (test code = Segs) 72.1 45.0-75.0 [facility] CenterSayeddpQNJBFSWLYL3846-64-68 19:37:00 Test Item Value Reference Range Interpretation Comments aPTT (test code = aPTT) 31.4 s 22.9-35.8 [facility] CenterNyujtvhXPEWLXHNLI5250-78-11 19:37:00 Test Item Value Reference Range Interpretation Comments aPTT (test code = aPTT) 31.4 s 22.9-35.8 [facility] CenterQdznckaAFTXFTKETL7673-93-14 19:37:00 Test Item Value Reference Range Interpretation Comments PROTIME (test code = PROTIME) 12.6 s 12.0-14.7 [facility] CenterNwlkdcsYFNYDZCXVL9032-43-33 19:37:00 Test Item Value Reference Range Interpretation Comments PROTIME (test code = PROTIME) 12.6 s 12.0-14.7 [facility] CenterMhbxzokXZWNNQMXQW6131-35-62 19:37:00 Test Item Value Reference Range Interpretation Comments INR (test code = INR) 0.92 0.85-1.17 [facility] CenterRufdtvsORORCYXOTL3598-74-25 19:37:00 Test Item Value Reference Range Interpretation Comments INR (test code = INR) 0.92 0.85-1.17 [facility] CenterZproebvQHOQPLIWKD4067-40-69 19:37:00 Test Item Value Reference Range Interpretation Comments MCHC (test code = MCHC) 34.4 32.0-36.0 [facility] CenterLfpvswrNRKKGGVNYN3169-83-26 19:37:00 Test Item Value Reference Range Interpretation Comments MCHC (test code = MCHC) 34.4 32.0-36.0 [facility] CenterQqmowjgBTWXASTNWL7050-83-50 19:37:00 Test Item Value Reference Range Interpretation Comments MCH (test code = MCH) 31.1 pg 27.0-31.0 [facility] CenterKypkmqxSFNNVXRSWH9233-40-72 19:37:00 Test Item Value Reference Range Interpretation Comments MCH (test code = MCH) 31.1 pg 27.0-31.0 [facility] CenterEahfesvERDLUZBIET7796-07-84 19:37:00 Test Item Value Reference Range Interpretation Comments WBC X 10x3 (test code = WBC X 10x3) 9.0 3.7-10.4 [facility] CenterXxokwsvRPOJVJPZFX4415-49-65 19:37:00 Test Item Value Reference Range Interpretation Comments WBC X 10x3 (test code = WBC X 10x3) 9.0 3.7-10.4 [facility] CenterIqaubrcCZYNJRZDKW7234-21-23 19:37:00 Test Item Value Reference Range Interpretation Comments RBC X 10x6 (test code = RBC X 10x6) 5.24 4.70-6.10 [facility] CenterUtpywixFERXAFCDSR7489-59-07 19:37:00 Test Item Value Reference Range Interpretation Comments RBC X 10x6 (test code = RBC X 10x6) 5.24 4.70-6.10 [facility] CenterYrmadppFLPUBJGAKH4659-28-75 19:37:00 Test Item Value Reference Range Interpretation Comments Platelet (test code = Platelet) 334 133-450 [facility] CenterGdpvavdILKBSOEQIB5664-03-52 19:37:00 Test Item Value Reference Range Interpretation Comments Platelet (test code = Platelet) 334 133-450 [facility] CenterWiswmxpIFTPIJEQVH9239-13-55 19:37:00 Test Item Value Reference Range Interpretation Comments RDW (test code = RDW) 14.3 11.5-14.5 [facility] CenterKdkrdirCXTJYDFMBT2732-57-42 19:37:00 Test Item Value Reference Range Interpretation Comments RDW (test code = RDW) 14.3 11.5-14.5 [facility] CenterNncgocmVYFNXAHCXS2898-59-66 19:37:00 Test Item Value Reference Range Interpretation Comments MPV (test code = MPV) 7.3 7.4-10.4 [facility] CenterXxqvlqsHOPTBRZEAN1824-98-63 19:37:00 Test Item Value Reference Range Interpretation Comments MPV (test code = MPV) 7.3 7.4-10.4 [facility] CenterCdzghhqCUMBDZORWQ7441-84-76 19:37:00 Test Item Value Reference Range Interpretation Comments MCV (test code = MCV) 90.4 80.0-94.0 [facility] CenterZkgpdbmCBLDVWSMBX9460-98-55 19:37:00 Test Item Value Reference Range Interpretation Comments MCV (test code = MCV) 90.4 80.0-94.0 [facility] CenterDwhpuapMPLADMQBBC1770-30-68 19:37:00 Test Item Value Reference Range Interpretation Comments Hct (test code = Hct) 47.4 42.0-54.0 [facility] CenterCpriddzFCVMNFGIZT8453-16-76 19:37:00 Test Item Value Reference Range Interpretation Comments Hct (test code = Hct) 47.4 42.0-54.0 [facility] CenterSoshaglYMWSBSAKDN2870-08-32 19:37:00 Test Item Value Reference Range Interpretation Comments Hgb (test code = Hgb) 16.3 14.0-18.0 [facility] CenterAwxmfcdMASAZJEFXH9551-42-22 19:37:00 Test Item Value Reference Range Interpretation Comments Hgb (test code = Hgb) 16.3 14.0-18.0 [facility] CenterEhwbpyfIXOMCDJZXM6517-49-76 19:37:00 Test Item Value Reference Range Interpretation Comments Monocytes # (test code 0.6 See_Comment [Aut omated message] The = Monocytes #) system which generated this result tra nsmitted reference range : <=0.8. The reference r kevin was not used to int erpret this result as normal/abnormal . [facility] CenterSyrqifmJJYWGVFZEU5879-85-80 19:37:00 Test Item Value Reference Range Interpretation Comments Lymphocytes # (test code = Lymphocytes 1.6 1.0-5.5 #) [facility] CenterRqkkaylPUHLASYGFB6766-84-28 19:37:00 Test Item Value Reference Range Interpretation Comments Eosinophils # (test code 0.3 See_Comment [A utomated message] The = Eosinophils #) system ic h generated this result tra nsmitted reference range : <=0.5. The reference r kevin was not used to int erpret this result as normal/abnormal . [facility] CenterPbutcfeBBGVZGBURU4361-79-44 19:37:00 Test Item Value Reference Range Interpretation Comments Basophils (test code = 0.6 See_Comment [Aut omated message] The Basophils) system which ge nerated this result tra nsmitted reference range : <=1.0. The reference r kevin was not used to int erpret this result as normal/abnormal . [facility] CenterXddesijMCWRQIGJQS4954-96-01 19:37:00 Test Item Value Reference Range Interpretation Comments Monocytes (test code = Monocytes) 6.1 2.0-12.0 [facility] CenterNzkopktKUREMMEDHR1123-48-39 19:37:00 Test Item Value Reference Range Interpretation Comments Eosinophils (test code = 3.0 See_Comment [A utomated message] The Eosinophils) system which ge nerated this result tra nsmitted reference range : <=4.0. The reference r kevin was not used to int erpret this result as normal/abnormal . [facility] CenterQzpthfqQWXPARHPGS2338-63-77 19:37:00 Test Item Value Reference Range Interpretation Comments Basophils # (test code 0.1 See_Comment [Aut omated message] The = Basophils #) system which generated this result tra nsmitted reference range : <=0.2. The reference r kevin was not used to int erpret this result as normal/abnormal . [facility] CenterPimmiqnVGRSLTQLYW7203-99-84 19:37:00 Test Item Value Reference Range Interpretation Comments Lymphocytes (test code = Lymphocytes) 18.2 20.0-40.0 [facility] CenterOgswhkoPBATMYAVQG8118-39-74 19:37:00 Test Item Value Reference Range Interpretation Comments Segs (test code = Segs) 72.1 45.0-75.0 [facility] CenterLdgmzkyZBZFZVDTYM7480-02-57 19:37:00 Test Item Value Reference Range Interpretation Comments aPTT (test code = aPTT) 31.4 s 22.9-35.8 [facility] CenterPkfpdztJURMVFVSRN5891-99-91 19:37:00 Test Item Value Reference Range Interpretation Comments PROTIME (test code = PROTIME) 12.6 s 12.0-14.7 [facility] CenterVbpsjezVRHWVGZWEM7186-65-76 19:37:00 Test Item Value Reference Range Interpretation Comments INR (test code = INR) 0.92 0.85-1.17 [facility] CenterMpybyiaUUEEQICBFO8807-35-54 19:37:00 Test Item Value Reference Range Interpretation Comments MCHC (test code = MCHC) 34.4 32.0-36.0 [facility] CenterDvxiauaIQHDFVMYMU5031-80-23 19:37:00 Test Item Value Reference Range Interpretation Comments MCH (test code = MCH) 31.1 pg 27.0-31.0 [facility] CenterWkfnjjwWKXTAMUIEF4172-36-13 19:37:00 Test Item Value Reference Range Interpretation Comments WBC X 10x3 (test code = WBC X 10x3) 9.0 3.7-10.4 [facility]wjiixkKACTOGXZCD1631-56-49 19:37:00 Test Item Value Reference Range Interpretation Comments RBC X 10x6 (test code = RBC X 10x6) 5.24 4.70-6.10 [facility] HospitalYqbtvynZBEBKXJIJI5920-64-47 19:37:00 Test Item Value Reference Range Interpretation Comments Platelet (test code = Platelet) 334 133-450 [facility] HospitalLracoynBNMXEMEDOE1341-02-38 19:37:00 Test Item Value Reference Range Interpretation Comments RDW (test code = RDW) 14.3 11.5-14.5 [facility] HospitalQzcbswgQBVYIGTXQJ1728-64-65 19:37:00 Test Item Value Reference Range Interpretation Comments MPV (test code = MPV) 7.3 7.4-10.4 [facility] CenterNjylhzoKPQWUWLRRI3430-74-18 19:37:00 Test Item Value Reference Range Interpretation Comments MCV (test code = MCV) 90.4 80.0-94.0 [facility] CenterDdaafqpHXGBGSGWLZ8962-42-43 19:37:00 Test Item Value Reference Range Interpretation Comments Hct (test code = Hct) 47.4 42.0-54.0 [facility] HospitalEqoluqnRHPOFQUKXR1409-07-04 19:37:00 Test Item Value Reference Range Interpretation Comments Hgb (test code = Hgb) 16.3 14.0-18.0 [facility] YCNKQGV3523-29-65 19:37:00 Test Item Value Reference Range Interpretation Comments Troponin-I (test code no gt See_Comment [Auto mated message] The = Troponin-I) system which g enerated this result transmit caio reference range : <=0.40. The reference r kevin was not used to interpr et this result as aileen l/abnormal. [facility] IYSBQSK4056-60-[facility] 19:37:00 Test Item Value Reference Range Interpretation Comments CK MB (test code = CK MB) 7.4 0.5-3.6 [facility] ISZQDGU6582-34-48 19:37:00 Test Item Value Reference Range Interpretation Comments Total CK (test code = Total CK) 215 12-191 [facility] RWKSHMT2129-04-88 19:37:00 Test Item Value Reference Range Interpretation Comments CK-MB INDEX (test 3.4 See_Comment [Automate d message] The code = CK-MB INDEX) system w [facility] generated this result transmit caio reference range : <=2.5. The reference range was not used to interpr et this result as aileen l/abnormal. [facility]2017-09-18 19:37:00 Test Item Value Reference Range Interpretation Comments A/G Ratio (test code = A/G Ratio) 1.1 0.7-1.6 [facility]2017-09-18 19:37:00 Test Item Value Reference Range Interpretation Comments AGAP (test code = AGAP) 8.3 10.0-20.0 [facility]2017-09-18 19:37:00 Test Item Value Reference Range Interpretation Comments Globulin (test code = Globulin) 3.6 2.7-4.2 [facility]2017-09-18 19:37:00 Test Item Value Reference Range Interpretation Comments B/C Ratio (test code = B/C Ratio) 21 6-25 [facility]2017-09-18 19:37:00 Test Item Value Reference Range Interpretation Comments eGFR (test code = eGFR) 93 [facility]2017-09-18 19:37:00 Test Item Value Reference Range Interpretation Comments Bili Total (test code = Bili Total) 0.4 0.2-1.3 [facility]2017-09-18 19:37:00 Test Item Value Reference Range Interpretation Comments Alk Phos (test code = Alk Phos) 109 39-136 [facility]2017-09-18 19:37:00 Test Item Value Reference Range Interpretation Comments ASPARTATE TRANSAMINASE 31 See_Comment [Aut omated message] (test code = ASPARTATE The s ystem which TRANSAMINASE) generated this result transmitted ref erence range: <=37. Th e reference range was not used to interpr et this result as normal/abnormal . [facility]2017-09-18 19:37:00 Test Item Value Reference Range Interpretation Comments ALANINE AMINOTRANSFERASE 40 See_Comment [A utomated message] (test code = ALANINE The sys tem which AMINOTRANSFERASE) generated this result transmitted ref erence range: <=65. Th e reference range was not used to int erpret this result as normal/abnormal . [place] [id number] 19:37:00 Test Item Value Reference Range Interpretation Comments Total Protein (test code = Total 7.4 6.4-8.4 Protein) [facility]2017-09-18 19:37:00 Test Item Value Reference Range Interpretation Comments Albumin Lvl (test code = Albumin Lvl) 3.8 3.5-5.0 [facility]2017-09-18 19:37:00 Test Item Value Reference Range Interpretation Comments Calcium Lvl (test code = Calcium Lvl) 8.9 8.5-10.5 [place] [id number] 19:37:00 Test Item Value Reference Range Interpretation Comments CO2 (test code = CO2) 28 24-32 [facility]2017-09-18 19:37:00 Test Item Value Reference Range Interpretation Comments Sodium Lvl (test code = Sodium Lvl) 138 135-145 [facility]2017-09-18 19:37:00 Test Item Value Reference Range Interpretation Comments Potassium Lvl (test code = Potassium 4.3 3.5-5.1 Lvl) [facility]2017-09-18 19:37:00 Test Item Value Reference Range Interpretation Comments Chloride Lvl (test code = Chloride Lvl) 106 95-109 [facility]2017-09-18 19:37:00 Test Item Value Reference Range Interpretation Comments Creatinine Lvl (test code = Creatinine 0.80 0.50-1.40 Lvl) [facility]2017-09-18 19:37:00 Test Item Value Reference Range Interpretation Comments BUN (test code = BUN) 17 7-22 [facility]2017-09-18 19:37:00 Test Item Value Reference Range Interpretation Comments Glucose Lvl (test code = Glucose Lvl) 109 70-99 [facility]adozcbEAKLNPSAUS0291-81-51 19:37:00 Test Item Value Reference Range Interpretation Comments Segs-Bands # (test code = Segs-Bands #) 6.5 1.5-8.1 [facility] CenterN[id number] 19:37:00 Test Item Value Reference Range Interpretation Comments Monocytes # (test code 0.6 See_Comment [Aut omated message] The = Monocytes #) system which generated this result tra nsmitted reference range : <=0.8. The reference r kevin was not used to int erpret this result as normal/abnormal . [facility] Cent[id number] 19:37:00 Test Item Value Reference Range Interpretation Comments Lymphocytes # (test code = Lymphocytes 1.6 1.0-5.5 #) [facility] CenterZisiogjYJYEYPHRAX0397-06-11 19:37:00 Test Item Value Reference Range Interpretation Comments Eosinophils # (test code 0.3 See_Comment [A utomated message] The = Eosinophils #) system whic h generated this result tra nsmitted reference range : <=0.5. The reference r kevin was not used to int erpret this result as normal/abnormal . [facility] CenterNnscxbaOXDZVPXIZT9808-41-08 19:37:00 Test Item Value Reference Range Interpretation Comments Basophils (test code = 0.6 See_Comment [Aut omated message] The Basophils) system which ge nerated this result tra nsmitted reference range : <=1.0. The reference r kevin was not used to int erpret this result as normal/abnormal . [facility] CenterCqsbepxVCGBOUGPBX9982-97-83 19:37:00 Test Item Value Reference Range Interpretation Comments Monocytes (test code = Monocytes) 6.1 2.0-12.0 [facility] CenterYlyrxxdLSZJRFYTQD1986-21-87 19:37:00 Test Item Value Reference Range Interpretation Comments Eosinophils (test code = 3.0 See_Comment [A utomated message] The Eosinophils) system which ge nerated this result tra nsmitted reference range : <=4.0. The reference r kevin was not used to int erpret this result as normal/abnormal . [facility] Cent[id number] 19:37:00 Test Item Value Reference Range Interpretation Comments Basophils # (test code 0.1 See_Comment [Aut omated message] The = Basophils #) system which generated this result tra nsmitted reference range : <=0.2. The reference r kevin was not used to int erpret this result as normal/abnormal . [facility] CenterUlpnsjpRIEFUNMGIM9882-60-04 19:37:00 Test Item Value Reference Range Interpretation Comments Lymphocytes (test code = Lymphocytes) 18.2 20.0-40.0 [facility] CenterRzqgocdXTNCNTSABK3759-66-96 19:37:00 Test Item Value Reference Range Interpretation Comments Segs (test code = Segs) 72.1 45.0-75.0 [facility] CenterYhxxwjnOUVKJEMBHK3872-49-25 19:37:00 Test Item Value Reference Range Interpretation Comments aPTT (test code = aPTT) 31.4 s 22.9-35.8 [facility] CenterXvjtaisDZYVSLMYYT5214-70-86 19:37:00 Test Item Value Reference Range Interpretation Comments PROTIME (test code = PROTIME) 12.6 s 12.0-14.7 [facility] CenterSjeudwaRAPFCQOGZP4554-09-95 19:37:00 Test Item Value Reference Range Interpretation Comments INR (test code = INR) 0.92 0.85-1.17 [facility] CenterBomsnvuKFUHUIBDSG2086-03-67 19:37:00 Test Item Value Reference Range Interpretation Comments MCHC (test code = MCHC) 34.4 32.0-36.0 [facility] CenterJpwqozxAVKZXMYYDN6903-94-30 19:37:00 Test Item Value Reference Range Interpretation Comments MCH (test code = MCH) 31.1 pg 27.0-31.0 [facility] CenterXdsfgbbYVCBTHCVRH2244-95-53 19:37:00 Test Item Value Reference Range Interpretation Comments WBC X 10x3 (test code = WBC X 10x3) 9.0 3.7-10.4 [facility] CenterHddbpyfITFSHJSMHZ9959-45-22 19:37:00 Test Item Value Reference Range Interpretation Comments RBC X 10x6 (test code = RBC X 10x6) 5.24 4.70-6.10 [facility] CenterNagzvzmSOYNXFKSTI3601-79-84 19:37:00 Test Item Value Reference Range Interpretation Comments Platelet (test code = Platelet) 334 133-450 [facility] CenterOylnswsBHCRHJPGSN9955-78-50 19:37:00 Test Item Value Reference Range Interpretation Comments RDW (test code = RDW) 14.3 11.5-14.5 [facility] CenterEzlyzywVIBCPTYFLL0915-84-68 19:37:00 Test Item Value Reference Range Interpretation Comments MPV (test code = MPV) 7.3 7.4-10.4 [facility] CenterSqjuoirDLYTADUMBX6023-11-85 19:37:00 Test Item Value Reference Range Interpretation Comments MCV (test code = MCV) 90.4 80.0-94.0 [facility] CenterGelbfekJYAJUVRAEJ6253-10-93 19:37:00 Test Item Value Reference Range Interpretation Comments Hct (test code = Hct) 47.4 42.0-54.0 [facility]CT[facility]4774-97-13 19:37:00 Test Item Value Reference Range Interpretation Comments Hgb (test code = Hgb) 16.3 14.0-18.0 [facility]"
[2022-07-10 19:57] LABS: Urine Blood 2+ (Negative); Urine Glucose Negative (Negative); Urine Protein 2+ (Negative); Urine Specific Gravity >=1.030 (1.005-1.030)
[2022-07-10 20:17] LABS: Urine Bacteria None Seen /HPF (<20); Urine Mucus 2+ /HPF (None Seen); Urine RBC >50 /HPF (None Seen); Urine WBC Clump Moderate /HPF (None Seen)
--- NOTE | 2022-07-10 20:39 | RAD REPORT ---
EXAM DESCRIPTION: RAD - Lumbar Spine 3 Views - 07/10/2022 8:30 pm CLINICAL HISTORY: PAIN COMPARISON: No comparisons FINDINGS: Status post L2 through L4 tomy and pedicle screw fusion. L1 kyphoplasty. Aorto bi-iliac bailey nt graft. Corpectomy at L3. Osteopenia. Bridging osteophytes. Lucency around the L2 screws noted coul d indicate loosening though this is likely a chronic finding. Deformity at the coccyx is presumably r elated to remote trauma. IMPRESSION: No acute osseous abnormality involving the lumbar spine.
[2022-07-10] MEDS ORDERED: CODEINE 30MG/APAP 300MG TAB ONE (21:03)
[2022-07-10] MEDS ORDERED: CEFTRIAXONE 1000 MG/VIAL ONE (21:04)
[2022-07-10] MEDS ORDERED: NA CHLORIDE 0.9% 50 ML IV ONE (21:04)
--- NOTE | 2022-07-10 21:52 | EDPHYS ---
Physician Documentation [facility] Name: Oswaldo Chou Age: 71 yrs Sex: Male : 1950 Arrival Date: 07/10/2022 Time: 19:25 Bed 6 Private MD: ED Physician Dominique Bacon HPI: 07/10 19:38 This 71 yrs old Male presents to ER via EMS with complaints of Back Pain. sd2 19:38 71 yo M presents via EMS with CC of R sided lower back pain for the past 2 weeks. sd2 Denies any trauma and is wheelchair-bound. States was taking Tylenol at home with some relief but became unbearable today even after applied Lidocaine patch to the area. Pain initially 8/10 with EMS improved to 4/10 after 1 gram of liquid Tylenol given by EMS [employer]. Pt reports concern for having a kidney infection but denies any known urinary symptoms as he does not have bladder control or strength in his RLE.. Historical: - Allergies: 19:31 No Known Allergies; ha1 - PMHx: 19:32 Atrial fibrillation; ha1 - Immunization history:: Adult Immunizations up to date. - Social history:: Smoking status: Patient denies any tobacco usage or history of. ROS: 19:38 Constitutional: Negative for fever, chills, and weight loss, Eyes: Negative for injury, sd2 pain, redness, and discharge, Cardiovascular: Negative for chest pain, palpitations, and edema, Respiratory: Negative for shortness of breath, cough, wheezing. Abdomen/GI: Negative for abdominal pain, nausea, vomiting, diarrhea. Back: Negative for injury and positive for pain, : Negative for dysuria, frequency or hematuria. MS/Extremity: Negative for injury and deformity, Skin: Negative for injury, rash, and discoloration, Neuro: Negative for headache, numbness and tingling. Exam: 19:38 Constitutional: This is a well developed, well nourished patient who is awake, alert, sd2 and in no acute distress. Head/Face: Normocephalic, atraumatic. Eyes: EOMI, normal conjunctiva bilaterally Chest/axilla: Normal chest wall appearance and motion. Nontender with no deformity. Cardiovascular: Regular rate and rhythm with a normal S1 and S2. No gallops, murmurs, or rubs. 2+ distal pulses. Respiratory: Lungs have equal breath sounds bilaterally, clear to auscultation and percussion. No rales, rhonchi or wheezes noted. No increased work of breathing, no retractions or nasal flaring. Abdomen/GI: Soft, non-tender, with normal bowel sounds. No guarding or rebound. No evidence of tenderness throughout. Back: No spinal tenderness. No costovertebral tenderness. Full range of motion. R lumbar paraspinal tenderness present. Skin: Warm, dry with normal turgor. Normal color with no rashes, no lesions, and no evidence of cellulitis. MS/ Extremity: Pulses equal, no cyanosis. Decreased tone of RLE, chronic. Normal baseline ROM intact of LLE along with his normal sensation and sensory deficits. Psych: Awake, alert, with orientation to person, place and time. Behavior, mood, and affect are within normal limits. Vital Signs: 19:26 BP 130 / 83; Pulse 82; Resp 20; Temp 98; Pulse Ox 96% ; Weight 104.33 kg; Height 5 ft. ha1 7 in. (170.18 cm); Pain 9/10; 20:40 BP 120 / 71; Pulse 80; Resp 18 S; Pulse Ox 96% on R/A; ha1 21:40 BP 116 / 76; Pulse 75; Resp 17 S; Pulse Ox 96% on R/A; ha1 22:00 BP 117 / 78; Pulse 72; Resp 16 S; Pulse Ox 96% on R/A; ha1 19:26 Body Mass Index 36.02 (104.33 kg, 170.18 cm) ha1 MDM: 19:36 Patient medically screened. sd2 19:38 Differential diagnosis: Spinal stenosis, epidural abscess, cauda equina, fracture, sd2 sprain, strain, herniated disc, UTI among others. Data reviewed: vital signs, nurses notes, EMS record. 21:50 Data reviewed: lab test result(s), radiologic studies. Counseling: I had a detailed sd2 discussion with the patient and/or guardian regarding: the historical points, exam findings, and any diagnostic results supporting the discharge/admit diagnosis, lab results, radiology results, the need for outpatient follow up, to return to the emergency department if symptoms worsen or persist or if there are any questions or concerns that arise at home. Medical screen evaluation completed. [facility] emergency medical condition absent. ED course: Labs and imaging reviewed. UA consistent with infection. Possible pyelonephritis with patient's back pain. Pain relieved with Tylenol #3. No significant red flags on history or exam at this time regarding patient's back pain. XR with no acute abnormality and no history of trauma to suggest need for CT at this time. pt comfortable with plan for discharge and outpatient follow up. Verbalizes understanding of strict return precautions. . 07/11 11:52 ED course: Cefdinir on national backorder. Vantin 200 mg PO BID x 10 days verbal ms3 ordered to [facility] Pharmacist.. 07/10 19:36 Order name: Urine Microscopic Only; Complete Time: 20:36 sd2 07/10 19:58 Order name: Urine Dipstick-Ancillary; Complete Time: 20:00 EDMS 07/10 19:36 Order name: XRAY Lumbar Spine (3 Views); Complete Time: 20:47 sd2 07/10 20:37 Order name: Urine Culture EDMS 07/10 19:36 Order name: Urine Dipstick-Ancillary (obtain specimen); Complete Time: 20:01 sd2 07/10 19:36 Order name: Straight Cath; Complete Time: 20:01 sd2 Administered Medications: 07/10 20:51 Not Given (Physician Discretion): Rocephin (cefTRIAXone) 1 grams IM once sd2 21:08 Drug: Acetaminophen-Codeine (300 mg-30 mg) 1 tablet Route: PO; ha1 21:30 Follow up: Response: No adverse reaction; Pain is decreased; RASS: Alert and Calm (0) ha1 21:10 Drug: Rocephin (cefTRIAXone) 1 grams Route: IV; Rate: bolus; Site: left antecubital; ha1 21:40 Follow up: Response: No adverse reaction; IV Status: Completed infusion; IV Intake: 08ayih2 Disposition Summary: 07/10/22 21:52 Discharge Ordered Location: Home sd2 Problem: new sd2 Symptoms: have improved sd2 Condition: Stable sd2 Diagnosis - Acute right-sided low back pain sd2 - Acute pyelonephritis sd2 Followup: sd2 - With: Private Physician - When: 2 - 3 days - Reason: Recheck today's complaints, Continuance of care, Re-evaluation by your physician Discharge Instructions: - Acute Back Pain, Adult sd2 - Pyelonephritis, Adult sd2 - Discharge Summary Sheet ha1 Forms: - Medication Reconciliation Form sd2 - Work release form ha1 - Thank You Letter sd2 - Antibiotic Education sd2 - Prescription Opioid Use sd2 Prescriptions: - cefdinir 300 mg Oral capsule - take 1 capsule by ORAL route every 12 hours for 10 days; 20 capsule; Refills: la1 0, Product Selection Permitted - Tylenol-Codeine #3 300 mg-30 mg Oral - take 1 tablet by ORAL route every 6 hours As needed; 12 tablet; Refills: 0, la1 Product Selection Permitted Signatures: Dispatcher [employer] EDMS Deshaun Burnett DO DO ms3 Dominique Bacon MD MD sd2 Rocio Bennett RN RN ha1
--- NOTE | 2022-07-10 21:52 | ER ---
Nurse's Notes [facility] Name: Oswaldo Chou Age: 71 yrs Sex: Male : 1950 Arrival Date: 07/10/2022 Time: 19:25 Bed 6 Private MD: Diagnosis: Acute right-sided low back pain;Acute pyelonephritis Presentation: 07/10 19:26 Chief complaint: EMS states: 71 year called EMS because he could not tolerate his back ha1 pain. pain is located at the right side of his back. pain has been going on for two weeks. Coronavirus screen: Vaccine status: Patient reports receiving the 2nd dose of the covid vaccine. FestEvo. Ebola Screen: No symptoms or risks identified at this time. Initial Sepsis Screen: Does the patient meet any 2 criteria? No. Patient's initial sepsis screen is negative. Does the patient have a suspected source of infection? No. Patient's initial sepsis screen is negative. Risk Assessment: Do you want to hurt yourself or someone else? Patient reports no desire to harm self or others. Onset of symptoms was June 28, 2022. 19:26 Method Of Arrival: EMS: [facility] ha1 19:26 Acuity: REINA 3 ha1 Triage Assessment: 19:32 General: Appears uncomfortable, Behavior is cooperative. Pain: Complains of pain in ha1 right back pain Pain does not radiate. Pain currently is 9 out of 10 on a pain scale. Quality of pain is described as sharp, Pain began two weeks ago Alleviated by medications. EENT: No deficits noted. No signs and/or symptoms were reported regarding the EENT system. Neuro: Level of Consciousness is awake, alert, obeys commands, Oriented to person, place, time, situation. Cardiovascular: Capillary refill < 3 seconds Patient's skin is warm and dry. Respiratory: Airway is patent Trachea midline Respiratory effort is even, unlabored, Respiratory pattern is regular, symmetrical. GI: No signs and/or symptoms were reported involving the gastrointestinal system. Abdomen is non-distended, obese. : No signs and/or symptoms were reported regarding the genitourinary system. Derm: Skin is pink, warm \T\ dry. Musculoskeletal: Circulation, motion, and sensation intact. Reports numbness in right leg had back surgery a couple of years ago and caused numbness in the right leg. Historical: - Allergies: 19:31 No Known Allergies; ha1 - PMHx: 19:32 Atrial fibrillation; ha1 - Immunization history:: Adult Immunizations up to date. - Social history:: Smoking status: Patient denies any tobacco usage or history of. Screenin:40 Abuse screen: Denies threats or abuse. Denies injuries from another. Nutritional ha1 screening: No deficits noted. Tuberculosis screening: No symptoms or risk factors identified. Assessment: 19:40 General: see triage. ha1 20:40 Reassessment: Patient and/or family updated on plan of care and expected duration. Pain ha1 level reassessed. Patient is alert, oriented x 3, equal unlabored respirations, skin warm/dry/pink. 21:40 Reassessment: Patient and/or family updated on plan of care and expected duration. Pain ha1 level reassessed. Patient is alert, oriented x 3, equal unlabored respirations, skin warm/dry/pink. Patient states feeling better. Patient states symptoms have improved. 22:15 Reassessment: Patient and/or family updated on plan of care and expected duration. Pain ha1 level reassessed. Patient is alert, oriented x 3, equal unlabored respirations, skin warm/dry/pink. awaiting for ride home Patient states symptoms have improved. Vital Signs: 19:26 BP 130 / 83; Pulse 82; Resp 20; Temp 98; Pulse Ox 96% ; Weight 104.33 kg; Height 5 ft. ha1 7 in. (170.18 cm); Pain 9/10; 20:40 BP 120 / 71; Pulse 80; Resp 18 S; Pulse Ox 96% on R/A; ha1 21:40 BP 116 / 76; Pulse 75; Resp 17 S; Pulse Ox 96% on R/A; ha1 22:00 BP 117 / 78; Pulse 72; Resp 16 S; Pulse Ox 96% on R/A; ha1 19:26 Body Mass Index 36.02 (104.33 kg, 170.18 cm) ha1 ED Course: 19:25 Patient arrived in ED. 1 19:26 Rocio Bennett, RN is Primary Nurse. ha1 19:30 No provider procedures requiring assistance completed. Maintain EMS IV. Dressing ha1 intact. Good blood return noted. Site clean \T\ dry. 20 delvis. 19:31 Triage completed. ha1 19:32 Arm band placed on right wrist. ha1 19:36 Dominique Bacon MD is Attending Physician. sd2 19:40 Patient has correct armband on for positive identification. Placed in gown. Bed in low ha1 position. Call light in reach. Side rails up X 1. 20:01 Urine Microscopic Only Sent. ha1 20:31 XRAY Lumbar Spine (3 Views) In Process Unspecified. EDMS 22:40 IV discontinued, intact, bleeding controlled, No redness/swelling at site. Pressure ha1 dressing applied. Administered Medications: 20:51 Not Given (Physician Discretion): Rocephin (cefTRIAXone) 1 grams IM once sd2 21:08 Drug: Acetaminophen-Codeine (300 mg-30 mg) 1 tablet Route: PO; ha1 21:30 Follow up: Response: No adverse reaction; Pain is decreased; RASS: Alert and Calm (0) ha1 21:10 Drug: Rocephin (cefTRIAXone) 1 grams Route: IV; Rate: bolus; Site: left antecubital; ha1 21:40 Follow up: Response: No adverse reaction; IV Status: Completed infusion; IV Intake: [id number] Medication: 22:40 VIS not applicable for this client. ha1 Intake: 21:40 IV: 50ml; Total: 50ml. ha1 Outcome: 21:52 Discharge ordered by . sd2 22:38 Patient left the ED. ha1 22:40 Condition: stable ha1 22:40 Discharged to home via wheelchair, with family. ha1 22:40 Discharge instructions given to patient, family, Instructed on discharge instructions, follow up and referral plans. medication usage, Demonstrated understanding of instructions, follow-up care, medications, Prescriptions given X 2. Signatures: Dispatcher [employer] EDMS Dominique Bacon MD MD sd2 Rocio Bennett RN RN ha1 Corrections: (The following items were deleted from the chart) 22:45 22:44 Response: No adverse reaction; IV Status: Completed infusion; IV Intake: 50ml ha1 ha1
[2022-07-10 22:42] VITALS: TEMP 98; O2SAT 96
[2022-07-10 22:43] VITALS: BP 120/71
== END 2022-07-10 22:38 | disposition home or self-care (01) ==
LOC: ER 19:19
DX: N10 Acute pyelonephritis (principal)
CPT/HCPCS: 72100; 81003; 81015; 87086; 87088; 96365; 99284

== ENCOUNTER 2022-08-09 09:35 | Inpatient (IN) | payer OTHER ==
--- OUTSIDE RECORDS SUMMARY | 2022-08-09 09:48 | XMS REPORT | Continuity of Care Document ---
:1950 Author Organization [facility] t Address [address] [place] [address] Care Team Providers Name Role Phone Unknown, Physician Primary Care Physician Unavailable WILNER SIM Attending Clinician Unavailable YUDI DOE Attending Clinician Unavailable Yudi Doe DO Attending Clinician Doctor Unassigned, [place] Attending Clinician Unavailable WILNER SIM Attending Clinician Unavailable Marie Dukes MA Attending Clinician Unavailable Yariel Pradhan MD Attending Clinician Jordy Toussaint MD Attending Clinician MD JORDY TOUSSAINT Attending Clinician Unavailable Erendira Barron MA Attending Clinician Unavailable Tal Ríos MD Attending Clinician Mary Salas Attending Clinician Denzel Leavitt MD Attending Clinician MD YARIEL PRADHAN Attending Clinician Unavailable Vanessa XIONG, Hanna Attending Clinician Unavailable Michael Harris MD Attending Clinician [phone] Doreen Resendiz MD Attending Clinician [facility] Attending Clinician Rip Nova MD Attending Clinician RIP NOVA [...] Type Policy Number Effective Date Expiration Date S eri [facility] [id number] 2021 MEDICARE 00:00:00 [facility] [id number] 2017 00:00:00 [employer] SHELDON [id number] 2022 00:00:00 Problems Condition Condition Condition Status Onset Resolution Last Treating Co mments Source Name Details Category Date Date Treatment Clinician Date Wound Wound Disease Active [facility] infection infection 4-10 st 00:00: Hospita 00 l IVC IVC Disease Active Overview: Method i (inferior (inferior 3-12 Formattin s t vena cava vena cava 00:00: g of this H ospita obstructio obstructio 00 note l n) n) might be different from the original. Added automatic ally from request for surgery [id number] Leg edema Leg edema Disease Active Overview: Methodi 3-[address] 00:00: g of this Hospita 00 note l might be different from the original. Added automatic ally from request for surgery [id number] Vena cava Vena cava Disease Active 2018-07 [...] Added automatic ally from request for surgery [id number] DVT (deep DVT (deep Disease Active Met [facility]odi venous venous 04-11 st thrombosis thrombosis 00:00: Ho spita ) ) 00 l Urinary Urinary Disease Active 2017-07 [facility] tract tract 08-17 st infection infection 00:00: Hosp laura associated associated 00 l with with indwelling indwelling urethral urethral catheter catheter Asthma Asthma Disease Active 2017-07 [facility] - st 00:00: Hospita 00 l DM DM Disease Active 2016-07 [facility] (diabetes [...] Benign Benign Disease Active [facility] nodular nodular 6 st prostatic prostatic 00:00: Hosp laura hyperplasi hyperplasi 00 l a with a with lower lower urinary urinary tract tract symptoms symptoms Benign Benign Disease Active [facility] nodular nodular 12-26 st prostatic prostatic 00:00: Hosp laura hyperplasi hyperplasi 00 l a with a with lower lower urinary urinary tract tract symptoms symptoms Benign Benign Disease Active [facility] non-nodula non-nodula 6 st r r 00:00: Hospita prostatic prostatic 00 l hyperplasi hyperplasi a with a with lower lower urinary urinary tract tract symptoms symptoms Benign Benign Disease Active [facility] non-nodula non-nodula 12-18 st r r 00:00: Hospita prostatic prostatic 00 l hyperplasi hyperplasi a with a with lower lower urinary urinary tract tract symptoms symptoms Low back Low back Problem Active 2009-072017-07-27 [facility] pain pain 2-14 02:55:46 l (disorder) (disorder) 00:00: He rmann Active 00 07/02/2010 Problem 07/27/2017 Data migrated from playnik on 03/13/15. [facility] Lumbar Lumbar Problem Active 2009-072017-07-27 German lamin radiculopa radiculopa 2-14 02:55:46 l thy thy 00:00: [place] (disorder) (disorder) 00 Active 07/02/2010 Problem 07/27/2017 Data migrated from playnik on 03/13/15. [facility] Spinal Spinal Problem Active 2009-072017-07-27 German lamin stenosis stenosis 2-14 02:55:46 l of lumbar of lumbar 00:00: Herm antony region region 00 (disorder) (disorder) Active 07/02/2010 Problem 07/27/2017 Data migrated from playnik on 03/13/15. [facility] Numbness Numbness Problem Active 2017-07-27 Memoria of lower of lower 02:55:46 l limb limb [place] (finding) (finding) Active Problem 07/27/2017 [facility] Simple Simple Problem Active 2017-07-27 German lamin obesity obesity 02:55:46 l (disorder) (disorder) He rmann Active Problem 07/27/2017 [facility] No known No known Disease Unive active active ity of problems problems [facility] History of Past Illness Condition Condition Condition Status Onset Resolution Last Treating Co mments Source Name Details Category Date Date Treatment Clinician Date Other Other Problem 2016-2017-04-09 2017-04-09 M emoria specified specified 04-06 05:11:23 05:11:23 l soft soft 05:00: [place] tissue tissue 00 disorders disorders 04/06/2017 04/09/2017 [facility] Other Other Problem 2017-04-09 2017-04-09 Memoria specified specified 04-06 05:11:23 05:11:23 l joint joint 05:00: [place] disorders, disorders, 00 right knee right knee 04/06/2017 04/09/2017 [facility] Allergies, Adverse Reactions, Alerts Allergy Allergy Status Severity Reaction(s) Onset Inactive Treating Comm ents Source Name Type Date Date Clinician No Known DA Active U 2019-0 [facility] [place] 00:[facility]: [address] No Known DA Active U 2019-0 [facility] Allergie 11-25 [place] 00:00: [address] No Known DA Active U 2019-0 [facility] Allergie 11-23 [place] 00:00: [address] No Known DA Active U 2007-0 [facility] Contrast 6-18 [place] Allergie 00:00: [address] No Known DA Active U 2007-0 [facility] Drug 6-18 [place] Allergie 00:00: [address] No Known DA Active U 2007-0 [facility] Food 6-18 [place] Allergie 00:00: [address] No Known DA Active U 2007-0 [facility] Other 6-18 [place] Allergie 00:00: [address] NO KNOWN Drug Active Univers ALLERGIE Class ity of S [facility] Family History Family Member Diagnosis Comments Start Date Stop Date Source Natural father Old age [facility] Natural mother Old age [facility] Social History Social Habit Start Date Stop Date Quantity Comments Source History of tobacco Pipe Smoker [facility] dist use Hospital History SDOH [facility] Comment Hospital History SDOH [facility] Std Drinks Hospit al History SDOH [facility] Alcohol Binge [facility] Exposure to 2022-07-28 2022-08-07 Not sure [facility]-CoV-2 (event) 00:00:00 13:13:00 [facility] Alcohol intake 2020-11-15 2020-11-15 Lifetime [facility] 00:00:00 00:00:00 non-drinker Hospital (finding) History SDOH 2020-10-04 2020-10-04 1 [facility] Alcohol Frequency 00:00:00 00:00:00 Hospita l Tobacco use and 2019-05-30 2019-05-30 Smokeless [facility] exposure 00:00:00 00:00:00 tobacco non-user Hospital Tobacco Comment 2019-05-30 2019-05-30 quit 30 yrs ago Meth odist 00:00:00 00:00:00 Hospital Cigarettes smoked 2019-05-30 2019-05-[address] current (pack per 00:00:00 00:00:00 [facility] day) - Reported Cigarette 2019-05-30 2019-05-30 [facility] pack-years 00:00:00 00:00:00 Hospital Social History 2017-04-06 2017-04-06 [facility] 19:32:49 19:32:49 Sex Assigned At [birth year] [facility] 00:00:00 00:00:00 Hospital Smoking Status Start Date Stop Date Source Tobacco smoking [facility] [place] consumption unknown Medical [facility] Ex-smoker 2019-05-30 00:00:00 2019-05-30 [facility] 00:[facility]:00 Medications Ordered Filled Start Stop Current Ordering Indication Dosage Frequency Signature Comments Components Source Medication Medication Date Date Medication? Clinician (SIG) Name Name ipratropium 2022- No .5mg 0.5 mg, Un dilan (ATROVENT) 08-07 Inhalation it y of 0.02 % 21:15: 20:24 , ONCE, 1 [place] nebulizer 00 :00 dose, On Medica l solution [place] 0.5 mg 08/07/22 at 1515, VAHID albuterol 2022- No 5mg 5 mg, Univer s (PROVENTIL) 08-07 Inhalation i ty of 2.5 mg /3 21:15: 20:24 , [place] (0.083 00 :00 dose, On Medica l %) [place] nebulizer 08/07/22 at solution 5 1515, VAHID mg No known No No known Unive rs medications 08-07 medication it y of 13:50: s [address] rivaroxaban 2020-0 Yes 20mg Take 20 mg [...] mg 10:08: Hospita tablet 26 l ondansetron 2020-2020- No 4mg Q8H Take 1 [facility] ODT (Zofran 4- 05-14 tablet (4 st ODT) 4 MG 00:00: 04:59 mg total) Ho spita disintegrat 00 :00 by mouth l ing tablet every 8 (eight) hours as needed for nausea or vomiting for up to 30 days. ramelteon 2020-2020- No 8mg QD Take 1 Metho di (ROZEREM) 8 10-30-14 tablet (8 st mg tablet 00:00: 04:59 mg total) Ho spita 00 :00 by mouth l nightly for 30 days. ondansetron 2020-2020- No 4mg Q8H Take 1 Met hodi [...] mouth l nightly for 30 days. ondansetron 20202020- No 4mg Q8H Take 1 Met [facility]odi ODT (Zofran 10-30 tablet (4 st ODT) 4 MG 00:00: 04:59 mg total) Ho spita disintegrat 00 :00 by mouth l ing tablet every 8 (eight) hours as needed for nausea or vomiting for up to 30 days. ramelteon 2020- No 8mg QD Take 1 Metho di (ROZEREM) 8 10-30 tablet (8 st mg tablet 00:00: 04:59 mg total) Ho spita 00 :00 by mouth l nightly for 30 days. cephalexin 2020- No 1000mg Q.[id number] Take 2 [facility] (KEFLEX) 10-[id number] 500 MG 00:00: 04:59 3D [...] for l 7 days. acetamin[place] 2020- [place] [id number] 1{tbl} Q6H Take 1 [facility]i en-codeine 10-[address] (TYLENOL 00:00: 04:59 mouth Hospita WITH 00 :00 every 6 l CODEINE #3) (six) 300-30 mg hours as per tablet needed for severe pain for up to 7 days .acute pain. cephalexin 2020- No 1000mg Q.[id number] Take 2 [facility] (KEFLEX) 10-[id number] 500 MG 00:00: 04:59 3D [...] for l 7 days. acetamin[place] 2020- [place] [id number] 1{tbl} Q6H Take 1 [facility] en-codeine 10-[address] (TYLENOL 00:00: 04:59 mouth Hospita WITH 00 :00 every 6 l CODEINE #3) (six) 300-30 mg hours as per tablet needed for severe pain for up to 7 days .acute pain. cephalexin 2020- No 1000mg Q.[id number] Take 2 [facility] (KEFLEX) 10-[id number] 500 MG 00:00: 04:59 3D [...] day with meals for 7 days. metoclopram 2020-0 2020- No 5mg Q.25D Take 1 Me thodi khalida 10-30- tablet (5 st (Reglan) 5 00:00: 04:59 mg total) H ospita MG tablet 00 :00 by mouth 4 l (four) times a day for 7 days. cetirizine 2020-0 2020- No 5mg QD Chew 1 Meth hiren (ZyrTEC) 5 10-30 tablet (5 st MG chewable 00:00: 04:59 mg total) Hospita tablet 00 :00 daily for l 7 days. acetaminoph 2020-2020- [place] [id number] 1{tbl} Q6H Take 1 Methodi en-codeine 10-30 [...] 2021-0 Yes 40mg QD Take 1 Meth hirne e 4-06 tablet (40 st (Protonix) 00:00: mg total) Ho spita 40 MG EC 00 by mouth l tablet daily. pantoprazol 2021-0 Yes 40mg QD Take 1 Meth hiren e 4-06 tablet (40 st (Protonix) 00:00: mg total) Ho spita 40 MG EC 00 by mouth l tablet daily. acetaminoph 2020-0 2020- No [id number] 1{tbl} Q4H Take 1 Methodi en-codeine 3-25 04-[address] (TYLENOL 00:00: 04:59 mouth Hospita WITH 00 :00 every 4 l CODEINE #3) (four) 300-30 mg hours as per tablet needed for moderate pain for up to 7 days .acute pain. acetaminoph 2020- [place] [id number] 1{tbl} Q4H Take 1 Methodi en-codeine 3-25 -[address] (TYLENOL 00:00: 04:59 mouth Hospita WITH 00 :00 every 4 l CODEINE #3) (four) 300-30 mg hours as per tablet needed for moderate pain for up to 7 days .acute pain. acetaminoph 2020- [place] [id number] 1{tbl} Q4H Take 1 Methodi en-codeine 3-25 - tablet by st (TYLENOL 00:00: 04:59 mouth [...] QD Take 1 Met hodi (PLAVIX) 75 3-05 22-12 tablet (75 s t mg tablet 00:00: 05:59 mg total) Ho spita 00 :00 by mouth l daily. clopidogreL 2021- No 75mg QD Take 1 Met hodi (PLAVIX) 75 -05 22-12 tablet (75 s t mg tablet 00:00: 05:59 mg total) Ho spita 00 :00 by mouth l daily. clopidogreL 2021- No 75mg QD Take 1 Met hodi (PLAVIX) 75 3-05 22-12 tablet (75 s t mg tablet 00:00: 05:59 mg total) Ho spita 00 :00 by mouth l daily. clopidogreL 2021- No 75mg QD Take 1 Met hodi (PLAVIX) 75 3-05 22-12 tablet (75 s t mg tablet 00:00: 05:59 mg total) Ho spita 00 :00 by mouth l daily. oxybutynin 2021-0 Yes 5mg QD Take 1 [...] mouth l extended daily. release 24 hr doxycycline 2020- No 100mg Q.5D Take 1 Me thodi (VIBRAMYCIN 08-[address] ) 100 MG 00:00: 05:59 (100 mg Hospi ta capsule 00 :00 total) by l mouth 2 (two) times a day for 7 days. gentamicin 2020- No [id number] Apply Methodi (GARAMYCIN) 08-[id number] 0.1 % 00:00: 05:59 3D 3 (three) Hospit a ointment 00 :00 times a l day for 7 days. Apply to right 5th toe ulcer doxycycline No 100mg Q.5D Take 1 Me thodi (VIBRAMYCIN 08-[address] ) 100 MG 00:00: 05:59 (100 mg Hospi ta capsule 00 :00 total) by l mouth 2 (two) times a day for 7 days. gentamicin No [id number] Apply [facility] (GARAMYCIN) 08-[id number] 0.1 % 00:00: 05:59 3D 3 (three) Hospit a ointment 00 :00 times a l day for 7 days. Apply to right 5th toe ulcer dexamethaso 2019-07 No 6mg 6 mg, Univ ers ne 09-16 12-28 Oral, ity of (DECADRON 04:15: 03:30 [place]CE, 1 [place] PHOS[place]ATE) 00 :00 dose, Sun Medi brennon injection 6 07/15/20 Bran ch mg at 2215, STAT codeine-gua 2019-07- No [id number] 5mL Take 5 mL Univers ifenesin 09-15 by mouth ity of 10-100 mg/5 00:00: 05:59 every 6 [place] solution 00 :00 (six) Medical hours as Branch needed for Cough for up to 7 days. Indication s: acute pain tolterodine 2020- No 4mg QD Take 1 Met hodi LA (Detrol 02-16 03-12 capsule (4 st LA) 4 MG 24 00:00: 00:00 mg total) Hospita hr capsule 00 :00 by mouth l daily. tolterodine 2020-0 2021- No 4mg QD Take 1 Met hodi LA (Detrol 02-16- capsule (4 st LA) 4 MG 24 00:00: 00:00 mg total) Hospita hr capsule 00 :00 by mouth l daily. tolterodine 2020-0 2021- No 4mg QD Take 1 Met hodi LA (Detrol 02-16 capsule (4 st LA) 4 MG 24 00:00: 00:00 mg total) Hospita hr capsule 00 :00 by mouth l daily. mirabegron 2020-0 2021- No 50mg QD Take 1 Meth hiren (Myrbetriq) 02-13 tablet (50 s t 50 mg 00:00: 00:00 mg total) Hospit a tablet 00 :00 by mouth l extended daily. release 24 hr mirabegron 2020-0 2021- No 50mg QD Take 1 Meth hiren (Myrbetriq) 02-13 tablet (50 s t 50 mg 00:00: 00:00 mg total) Hospit a tablet 00 :00 by mouth l extended daily. release 24 hr mirabegron 2020-0 2021- No 50mg QD Take 1 Meth hiren (Myrbetriq) 02-13 tablet (50 s t 50 mg 00:00: 00:00 mg total) Hospit a tablet 00 :00 by mouth l extended daily. release 24 hr rivaroxaban 2020-0 Yes 20 mg = 1 M emoria 20 MG Oral 7-23 tab, PO, l Tablet 18:52: QPM, # 90 Rudy n [Xarelto] 00 tab, 1 Refill(s), Pharmacy: [id number], 170.18, cm, 02/09/20 12:14:00 CDT, Height, 95.455, kg, 02/09/20 12:14:00 CDT, Weight clopidogrel 2020-0 Yes 75 mg = 1 M emoria 75 MG Oral 7-23 tab, PO, l Tablet 18:52: Daily, # [place] [Plavix] 00 90 tab, 1 Refill(s), Pharmacy: [id number], 170.18, cm, 02/09/20 12:14:00 CDT, Height, 95.455, kg, 02/09/20 12:14:00 CDT, Weight rivaroxaban Yes 20 mg = 1 M emoria 20 MG Oral -23 tab, PO, l Tablet 20:02: QPM, # 30 Rudy n [Xarelto] 00 tab, 5 Refill(s), Pharmacy: [facility] clopidogrel Yes 75 mg = 1 M emoria 75 MG Oral - tab, PO, l Tablet 17:54: Daily, 0 [place] [Plavix] 00 Refill(s) clopidogrel 2020- No [id number] 75mg QD Take 1 [facility] (PLAVIX) 75 08-03-15 tablet (75 s t mg tablet 00:00: 05:59 mg total) Ho spita 00 :00 by mouth l daily. oxybutynin 2020- No 5mg QD Take 1 Meth hiren (DITROPAN) 07-26 tablet (5 st 5 MG tablet 00:00: 00:00 mg total) Hospita 00 :00 by mouth l daily. oxybutynin 2020- No 5mg QD Take 1 Meth hiren (DITROPAN) 07-26 tablet (5 st 5 MG tablet 00:00: 00:00 mg total) Hospita 00 :00 by mouth l daily. oxybutynin 2020- No 5mg QD Take 1 Meth hiren (DITROPAN) 07-26 tablet (5 st 5 MG tablet 00:00: 00:00 mg total) Hospita 00 :00 by mouth l daily. pantoprazol 2020- No 40mg QD Take 1 Met hodi e 07-22-06 tablet (40 st (PROTONIX) 00:00: 00:00 mg total) H ospita 40 MG EC 00 :00 by mouth l tablet daily. pantoprazol 2020- No 40mg QD Take 1 Met hodi e 07-22-06 tablet (40 st (PROTONIX) 00:00: 00:00 mg total) H ospita 40 MG EC 00 :00 by mouth l tablet daily. pantoprazol 2020- No 40mg QD Take 1 Met hodi e 07-22-06 tablet (40 st (PROTONIX) 00:00: [...] TOES THREE TIMES DAILY FOR 14 DAYS [facility] 2018-07- No 1{tbl} Take 1 M ethodi en-codeine 07-[address] (TYLENOL 00:00: 00:00 mouth. PRN Ho spita WITH 00 :00 l CODEINE #3) 300-30 mg per tablet [facility] 2018-07- No 1{tbl} Take 1 M ethodi en-codeine 07-[address] (TYLENOL 00:00: 00:00 mouth. PRN Ho spita WITH 00 :00 l CODEINE #3) 300-30 mg per tablet [facility] 2018-07- No 1{tbl} Take 1 M ethodi en-codeine 07-[address] (TYLENOL 00:00: 00:00 mouth. PRN Ho spita WITH 00 :00 l CODEINE #3) 300-30 mg per tablet oxybutynin 2018-07 Yes 5 mg = 1 Mem oria 5 mg oral 0-17 tab, PO, l tablet 16:13: BID, 0 [place] 00 Refill(s) warfarin 6 2018- Yes 6 mg = 1 Mem oria mg oral 0-17 tab, PO, l tablet 16:13: Daily, 0 Sg 00 Refill(s) Baclofen 2018- Yes PO, TID, 0 Mem oria 3-05 Refill(s) l 21:01: [place] 00 rivaroxaban Yes 20 mg = 1 M emoria 20 MG Oral 3-05 tab, PO, l Tablet 21:01: QPM, # 30 Rudy n [Xarelto] 00 tab, 3 Refill(s) pantoprazol Yes 40 mg = 1 M emoria e 40 mg 3-05 tab, PO, l oral 21:01: Daily, 0 Sg enteric 00 Refill(s) coated tablet primidone Yes 50 mg = 1 Mem oria 50 mg oral 8-03 tab, PO, l tablet 21:43: BID, # 180 Tisha nn 32 tab, 1 Refill(s), Pharmacy: [facility] potassium Yes 10 mEq = 1 Me moria chloride 10 5-24 tab, PO, l mEq oral 18:31: Daily, Sg tablet, 00 ONLY FOR 1 extended WEEK, # 7 release tab, 0 Refill(s), Pharmacy: [facility] 768 Furosemide Yes 40 mg = 1 Me moria 40 MG Oral 5-24 tab, PO, l Tablet 18:31: Daily, # 7 Tisha nn [Lasix] 00 tab, 0 Refill(s), Pharmacy: [facility], ONLY FOR 1 WEEK primidone Yes 50 mg = 1 Mem oria 50 mg oral 5-18 tab, PO, l tablet 05:43: BID, # 180 Tisha nn 15 tab, 1 Refill(s), Pharmacy: [facility] primidone 2020- No 50mg Q.5D Take 50 mg M ethodi (MYSOLINE) 12-04-[address] 50 MG 00:00: 00:00 (two) Hospita tablet 00 :00 times a l day. primidone 2020- No 50mg Q.5D Take 50 mg M ethodi (MYSOLINE) -18 -[address] 50 MG 00:00: 00:00 (two) Hospita tablet 00 :00 times a l day. primidone 2020- No 50mg Q.5D Take 50 mg M ethodi (MYSOLINE) 5-18 -[address] 50 MG 00:00: 00:00 (two) Hospita tablet 00 :00 times a l day. primidone No 50 mg = 1 Mem oria 50 mg oral 2-21 tab, PO, l tablet 18:46: BID, # 60 Rudy n 00 tab, 1 Refill(s), Pharmacy: [facility] 768 propranolol 2018 No 80 mg = 1 M emoria 80 mg oral 2-12 tab, PO, l tablet 23:13: BID, # 60 Rudy n 00 tab, 3 Refill(s), Pharmacy: [facility] Cephalexin Yes 500 mg = [...] 0.9% 9-18 preservati l 19:32: ve free. [place] 00 Saline No Notes: Memoria Flush 0.9% 9-18 [...] MRNA 2020-09-15 Completed Meth odist VACCINATION 00:00:00 [facility] PFIZER COVID-19 MRNA 2020-09-15 Completed Meth odist VACCINATION 00:00:00 [facility] PFIZER COVID-19 MRNA 2020-09-15 Completed Meth odist VACCINATION 00:00:00 [facility] PFIZER COVID-19 MRNA 2020-09-15 Completed Meth odist VACCINATION 00:00:00 [facility] PFIZER COVID-19 MRNA 2020-09-15 Completed Meth odist VACCINATION 00:00:00 [facility] PFIZER COVID-19 MRNA 2020-08-25 Completed Meth odist VACCINATION 00:00:00 [facility] PFIZER COVID-19 MRNA 2020-08-25 Completed Meth odist VACCINATION 00:00:00 [facility] PFIZER COVID-19 MRNA 2020-08-25 Completed Meth odist VACCINATION 00:00:00 [facility] PFIZER COVID-19 MRNA 2020-08-25 Completed Meth odist VACCINATION 00:00:00 [facility] PFIZER COVID-19 MRNA 2020-08-25 Completed Meth odist VACCINATION 00:00:00 Hospital FLUCELVAX QUAD PF 2019-04-[address] 00:00:00 Hospital Pneumococcal 2019-04-18 Completed [facility] Conjugate 13-Valent 00:00:00 Hospi [facility] FLUCELVAX QUAD PF 2019-04-[address] 00:00:00 Hospital Pneumococcal 2019-04-18 Completed [facility] Conjugate 13-Valent 00:00:00 Hospi noy FLUCELVAX QUAD PF 2019-04-[address] 00:00:00 Hospital Pneumococcal 2019-04-18 Completed [facility] Conjugate 13-Valent 00:00:00 Hospi noy FLUCELVAX QUAD PF 2019-04-[address] 00:00:00 Hospital Pneumococcal 2019-04-18 Completed [facility] Conjugate 13-Valent 00:00:00 Hospi noy FLUCELVAX QUAD PF 2019-04-[address] 00:00:00 Hospital Pneumococcal 2019-04-18 Completed [facility] Conjugate 13-Valent 00:00:00 Hospi noy Vital Signs Vital Name Observation Time Observation Value Comments Source Systolic blood 2022-08-07 22:00:00 109 mm[Hg] Univer sity of pressure [facility] Diastolic blood 2022-08-07 22:00:00 81 mm[Hg] Unive rsity of [facility] Heart rate 2022-08-07 22:00:00 80 /min [facility] Respiratory rate 2022-08-07 22:00:00 18 /[facility] in 2022-08-07 22:00:00 93 /min [facility] of Arterial blood by [facility] Pulse oximetry Branch Body temperature 2022-08-07 19:03:00 36.61 Allison [facility] Body height 2022-08-07 19:03:00 170.2 cm [facility] Body weight 2022-08-07 19:03:00 95.255 kg [facility] BMI 2022-08-07 19:03:00 32.89 kg/m2 [facility] Systolic blood 2020-07-16 03:30:00 119 mm[Hg] Univer sity of [facility] Diastolic blood 2020-07-16 03:30:00 84 mm[Hg] Unive rsity of pressure [facility] Heart rate 2020-07-16 03:30:00 87 /min [facility] Respiratory rate 2020-07-16 03:30:00 18 /min [facility] in 2020-07-16 03:30:00 94 /min [facility] Arterial blood by [facility] Pulse oximetry Branch Body temperature 2020-07-16 02:00:00 36.67 Allison [facility] weight 2020-07-16 00:18:00 95.255 kg Universi [facility] Systolic blood 2020-07-16 03:30:00 119 mm[Hg] Univer sity of pressure [facility] Diastolic blood 2020-07-16 03:30:00 84 mm[Hg] Unive rsity of pressure [facility] Heart rate 2020-07-16 03:30:00 87 /min Universi ty of [facility] Respiratory rate 2020-07-16 03:30:00 18 /min [facility] saturation in 2020-07-16 03:30:00 94 /min [facility] Arterial blood by [facility] Pulse oximetry [place] Body temperature 2020-07-16 02:00:00 36.67 Allison [facility] weight 2020-07-16 00:18:00 95.255 kg [facility] Heart Rate 2021-07-25 19:15:00 [facility] Respitory Rate 2021-07-25 19:15:00 Memori al Sg Systolic (mm Hg) 2021-07-25 19:15:00 [facility] [place] Diastolic (mm Hg) 2021-07-25 19:15:00 [facility] [place] Height 2021-07-25 19:15:00 170.18 cm [facility] Weight 2021-07-25 19:15:00 [facility] BMI Calculated 2021-07-25 19:15:00 [facility] [place] Systolic blood 2020-11-15 15:06:00 123 mm[Hg] [facility] pressure Diastolic blood 2020-11-15 15:06:00 71 mm[Hg] [facility] pressure Heart rate 2020-11-15 15:06:00 70 /min [facility] Body temperature 2020-11-15 15:06:00 36.06 Allison [facility] Respiratory rate 2020-10-30 17:28:00 20 /min [facility] Oxygen saturation in 2020-10-30 17:28:00 96 /min [facility] Arterial blood by Pulse oximetry Body weight 2020-10-30 09:31:00 107.049 kg [facility] BMI 2020-10-30 09:31:00 36.96 kg/m2 [facility] Body height 2020-10-28 04:22:00 170.2 cm [place] [facility] Sy[facility]olic (mm Hg) 2020-02-09 17:13:00 [facility] [place] Diastolic (mm Hg) 2020-02-09 17:13:00 [facility] Heart Rate 2020-02-09 17:13:00 [facility] [place] Height 2020-02-09 17:13:00 170.18 cm [facility] [place] Weight 2020-02-09 17:13:00 [facility] BMI Calculated 2020-02-09 17:13:00 [facility] [place] Systolic (mm Hg) 2019-08-11 17:52:00 [facility] Diastolic (mm Hg) 2019-08-11 17:52:00 [facility] Heart Rate 2019-08-11 17:52:00 [facility] Height 2019-08-11 17:52:00 170.18 cm [facility] [place] Weight 2019-08-11 17:52:00 [facility] BMI Calculated 2019-08-11 17:52:00 [facility] Systolic (mm Hg) 2019-05-05 16:11:00 [facility] Diastolic (mm Hg) 2019-05-05 16:11:00 [facility] Heart Rate 2019-05-05 16:11:00 [facility] Height 2019-05-05 16:11:00 170.18 cm [facility] Weight 2019-05-05 16:11:00 [facility] [place] BMI Calculated 2019-05-05 16:11:00 [facility] BMI Calculated 2018-09-21 21:00:00 [facility] Weight 2018-09-21 21:00:00 [facility] Height 2018-09-21 21:00:00 170.18 cm [facility] Heart Rate 2018-09-21 21:00:00 [facility] [place] Systolic (mm Hg) 2018-09-21 21:00:00 [facility] [facility] [place] Diastolic (mm Hg) 2018-09-21 21:00:00 [facility] Weight 2018-02-19 19:45:00 [facility] Heart Rate 2018-02-19 19:45:00 [facility] [place] Systolic (mm Hg) 2018-02-19 19:45:00 [facility] [place] Diastolic (mm Hg) 2018-02-19 19:45:00 [facility] Weight 2018-01-12 18:57:00 [facility] BMI Calculated 2018-01-12 18:57:00 [facility] [place] Height 2018-01-12 18:57:00 170.18 cm [facility] [place] Systolic (mm Hg) 2018-01-12 18:57:00 [facility] [place] Diastolic (mm Hg) 2018-01-12 18:57:00 [facility] Heart Rate 2018-01-12 18:57:00 [facility] [place] Weight 2017-12-10 18:08:00 [facility] BMI Calculated 2017-12-10 18:08:00 [facility] Height 2017-12-10 18:08:00 170.18 cm [facility] [place] Heart Rate 2017-12-10 18:08:00 [facility] Systolic (mm Hg) 2017-12-10 18:08:00 [facility] Diastolic (mm Hg) 2017-12-10 18:08:00 [facility] [place] Height 2017-12-08 17:45:00 170.18 cm [facility] BMI Calculated 2017-12-08 17:45:00 [facility] Weight 2017-12-08 17:45:00 [facility] Heart Rate 2017-12-08 17:45:00 [facility] Systolic (mm Hg) 2017-12-08 17:45:00 [place] Diastolic (mm Hg) 2017-12-08 17:45:00 [facility] [place] Weight 2017-12-03 21:26:00 [facility] Systolic (mm Hg) 2017-12-03 21:26:00 [facility] Diastolic (mm Hg) 2017-12-03 21:26:00 [facility] Heart Rate 2017-12-03 21:26:00 [facility] Weight 2017-08-31 21:15:00 [facility] Systolic (mm Hg) 2017-08-31 21:15:00 [place] Diastolic (mm Hg) 2017-08-31 21:15:00 [facility] Heart Rate 2017-08-31 21:15:00 [facility] [place] Weight 2017-07-24 19:44:00 [facility] Heart Rate 2017-07-24 19:44:00 [facility] Systolic (mm Hg) 2017-07-24 19:44:00 [facility] Diastolic (mm Hg) 2017-07-24 19:44:00 [facility] Systolic (mm Hg) 2017-04-06 21:21:00 [place] Diastolic (mm Hg) 2017-04-06 21:21:00 [facility] Temperature Oral (F) 2017-04-06 21:21:00 98 F [facility] Respitory Rate 2017-04-06 21:21:00 [facility] [place] Heart Rate 2017-04-06 21:21:00 [facility] [place] Height 2017-04-06 19:13:00 170.18 cm [facility] BMI Calculated 2017-04-06 19:13:00 [facility] [place] Weight 2017-04-06 19:13:00 [facility] Heart Rate 2017-04-06 19:13:00 [facility] [place] Respitory Rate 2017-04-06 19:13:00 [facility] [place] Systolic (mm Hg) 2017-04-06 19:13:00 [facility] Diastolic (mm Hg) 2017-04-06 19:13:00 [facility] Procedures Procedure Date / Time Performing Clinician Source Performed XR CHEST 1 VW 2022-08-07 20:53:[address] [facility] TROPONIN I 2022-08-07 20:39:[address] [facility] COMP. METABOLIC PANEL 2022-08-07 20:39:00 Yudi Doe [facility] ([id number]) [facility] CBC WITH DIFF 2022-08-07 20:39:[address] [facility] RAPID INFLUENZA A/B 2022-08-07 20:39:00 Yudi Doe [facility] N-TERMINAL PRO-BNP 2022-08-07 20:39:00 Yudi Doe [facility] COVID-19 (ID NOW RAPID 2022-08-07 20:39:00 Yudi Doe Un [facility] TESTING) [facility] CONSENT/REFUSAL FOR 2022-08-07 18:52:02 Doctor Unassigned, [facility] DIAGNOSIS AND TREATMENT [facility] US DUPLEX AORTA INFERIOR 2020-11-15 15:04:00 Yariel Pradhan [facility] VENA CAVA LIMITED BASIC METABOLIC PANEL 2020-10-30 09:37:00 Toussaint, [place] H. [facility] HC COMPLETE BLD COUNT 2020-10-30 09:37:00 Toussaint, [place] [facility]. [facility] W/AUTO DIFF MAGNESIUM LEVEL 2020-10-30 09:37:00 Toussaint, [place] [facility] PHOSPHORUS LEVEL 2020-10-30 09:37:00 Toussaint, [place] [facility] ESTIMATED GFR 2020-10-30 09:37:00 Toussaint, [place] [facility] BASIC METABOLIC PANEL 2020-10-29 07:51:00 Toussaint, [place] H. [facility] HC COMPLETE BLD COUNT 2020-10-29 07:51:00 Toussaint, [place] [facility]. [facility] W/AUTO DIFF MAGNESIUM LEVEL 2020-10-29 07:51:00 Toussaint, [place] [facility] PHOSPHORUS LEVEL 2020-10-29 07:51:00 Toussaint, [place] [facility] ESTIMATED GFR 2020-10-29 07:51:00 Toussaint, [place] [facility] ECG 12-LEAD 2020-10-29 07:22:33 Ras Rogers Marcela [facility] CT ABDOMEN PELVIS W 2020-10-28 22:21:07 Reuben Dutton [facility] CONTRAST POC GLUCOSE 2020-10-28 21:21:00 Toussaint, [place] [facility] LIPASE LEVEL 2020-10-28 18:21:00 Toussaint, [place] [facility] AMYLASE LEVEL 2020-10-28 18:21:00 Toussaint, [place] [facility] POC GLUCOSE 2020-10-28 17:08:00 Toussaint, [place] [facility] XR ABDOMEN 1 VW PORTABLE 2020-10-28 16:10:13 Toussaint, [place] H. [facility] US DUPLEX AORTA INFERIOR 2020-10-28 15:48:20 Agustin Garcia [facility] VENA CAVA LIMITED [facility] URINE CULTURE 2020-10-28 13:50:00 Toussaint, [place] [facility]ST 1 VW PORTABLE 2020-10-28 12:28:24 Toussaint, [place] H. [facility] LACTIC ACID LEVEL 2020-10-28 10:38:00 Toussaint, [place] H. [facility] BASIC METABOLIC PANEL 2020-10-28 07:38:00 Toussaint, [place] H. [facility] HC COMPLETE BLD COUNT 2020-10-28 07:38:00 Toussaint, [place] [facility]. [facility] W/AUTO DIFF MAGNESIUM LEVEL 2020-10-28 07:38:00 Toussaint, [place] H. [facility] spital PHOSPHORUS LEVEL 2020-10-28 07:38:00 Toussaint, [place] H. [facility] ospital LACTIC ACID LEVEL 2020-10-28 07:38:00 Toussaint, [facility]. [facility] ESTIMATED GFR 2020-10-28 07:38:00 Toussaint, [place] H. [facility] URINALYSIS SCREEN AND 2020-10-28 07:33:00 Toussaint, [facility]. [facility] MICROSCOPY, WITH REFLEX TO CULTURE ECG 12-LEAD 2020-10-28 05:07:33 Toussaint, [place] [facility] BLOOD CULTURE, AEROBIC & 2020-10-28 05:01:00 Toussaint, [place] H. [facility] ANAEROBIC BLOOD CULTURE, AEROBIC & 2020-10-28 04:45:00 Toussaint, [place] H. [facility] ANAEROBIC COVID-19 QUALITATIVE 2020-10-28 03:57:00 Toussaint, [place] H. [facility] RT-PCR HC COMPLETE BLD COUNT 2020-10-28 03:57:00 Toussaint, [place] H. [facility] W/AUTO DIFF PROTHROMBIN TIME WITH INR 2020-10-28 03:57:00 Toussaint, [place] H. [facility] PARTIAL THROMBOPLASTIN 2020-10-28 03:57:00 Toussaint, [place] H. [facility] TIME (PTT) COMPREHENSIVE METABOLIC 2020-10-28 03:57:00 Toussaint, [place] H. [facility] PANEL LACTIC ACID LEVEL 2020-10-28 03:57:00 Toussaint, [facility] ESTIMATED GFR 2020-10-28 03:57:00 [facility] POC BLOOD GAS, ARTERIAL 2020-10-11 17:38:[address] [facility] AND LYTES CV HYBRID OR FLUOROSCOPY 2020-10-11 17:33:48 [facility] ARTERIAL LINE 2020-10-11 17:27:06 Hitesh Ibanez ospital VA AN ELECTIVE 2020-10-11 17:17:00 Hitesh Ibanez ospital ENDOTRACHEAL AIRWAY VENOGRAPHY, UPPER OR 2020-10-11 17:09:00 [facility] EXTREMITY, UNILATERAL PARTIAL THROMBOPLASTIN 2020-10-11 17:03:00 [facility] TIME (PTT) PROTHROMBIN TIME WITH INR 2020-10-11 17:03:00 Raina Leavitt [facility] US ANKLE BRACHIAL INDEX 2020-10-11 14:41:[facility]ERIAL LOWER 2020-10-11 14:31:00 Carolynn [facility] EXTREMITY RIGHT URINE CULTURE 2020-10-08 18:37:00 Yariel Pradhan spital XR CHEST 2 VW 2020-10-08 18:06:00 [facility] HC COMPLETE BLD COUNT 2020-10-08 17:35:[address] [facility] W/AUTO DIFF ESTIMATED GFR 2020-10-08 17:35:00 Yariel Pradhan spital TYPE AND SCREEN 2020-10-08 17:35:00 [facility] COMPREHENSIVE METABOLIC 2020-10-08 17:35:00 [facility] PANEL URINALYSIS SCREEN AND 2020-10-08 17:07:00 [facility], WITH REFLEX TO CULTURE ECG PRE/POST OP 2020-10-08 16:35:29 Yariel Pradhan spital COVID-19 QUALITATIVE 2020-10-08 16:26:[address] [facility] RT-PCR US DUPLEX VENOUS LOWER 2020-08-21 22:31:42 Carolynn Yariel [facility] EXTREMITY RIGHT TROPONIN I 2020-07-16 00:56:00 Rip [facility] HEPATIC FUNCTION PANEL 2020-07-16 00:56:00 Rip Nova [facility] ([id number]) (ALB,T.PRO,BILI Medical [facility] T,BU/BC,ALT,AST,ALK PHOS) BASIC METABOLIC PANEL 2020-07-16 00:56:00 Rip Nova [facility] (NA, K, CL, CO2, GLUCOSE, Medica l Branch BUN, CREATININE, CA) CBC WITH DIFF 2020-07-16 00:56:00 Rip Nova [facility] PROTHROMBIN TIME / INR 2020-07-16 00:56:00 Rip Nova [facility] ACTIVATED PARTIAL 2020-07-16 00:56:00 [facility] THRMPLAS FRANCIA [facility] N-TERMINAL PRO-BNP 2020-07-16 00:56:[address] [facility] COVID-19 (ID NOW RAPID 2020-07-16 00:56:00 Rip Nova [facility] TESTING) [facility] [place] XR CHEST 1 VW 2020-07-16 00:44:06 Rip Nova [facility] NOTICE OF PRIVACY 2020-07-16 00:08:40 [facility] PRACTICES [place] [facility] [place] CONSENT/REFUSAL FOR 2020-07-16 00:08:15 Doctor Donald, [facility] DIAGNOSIS AND TREATMENT [place] [facility] Plan of Care Planned Activity Planned Date Details Comments Source Future Scheduled 2022-07-30 Hepatitis C screening [facility] Test 08:01:30 (procedure) [code = 445046557] Future Scheduled 2022-07-30 COLONOSCOPY SCREENING [facility] Test 08:01:30 [code = COLONOSCOPY SCREENING] Future Scheduled 2022-07-30 SHINGLES VACCINES (1 Met [facility] Test 08:01:30 of 2) [code = SHINGLES VACCINES (1 of 2)] Future Scheduled 2022-07-30 65+ [facility]AL [facility] Test 08:01:30 VACCINE (2 - PPSV23 if available, else PCV20) [code = 65+ PNEUMOCOCCAL VACCINE (2 - PPSV23 if available, else PCV20)] Future Scheduled 2022-07-30 COVID-19 VACCINE (3 - [facility] Test 08:01:30 Booster for Pfizer series) [code = COVID-19 VACCINE (3 - Booster for Pfizer series)] Future Scheduled 2022-07-30 INFLUENZA VACCINE [facility] Test 08:01:30 [code = INFLUENZA VACCINE] Future Scheduled 2022-07-02 Hepatitis C screening [facility] Test 11:52:24 (procedure) [code = 680321690] Future Scheduled 2022-07-02 COLONOSCOPY SCREENING [facility] Test 11:52:24 [code = COLONOSCOPY SCREENING] Future Scheduled 2022-07-02 SHINGLES VACCINES (1 Met [facility] Test 11:52:24 of 2) [code = SHINGLES VACCINES (1 of 2)] Future Scheduled 2022-07-02 65+ [facility]AL [facility] 11:52:24 VACCINE (2 - PPSV23 if available, else PCV20) [code = 65+ PNEUMOCOCCAL VACCINE (2 - PPSV23 if available, else PCV20)] Future Scheduled 2022-07-02 COVID-19 VACCINE (3 - [facility] Test 11:52:24 Booster for Pfizer series) [code = COVID-19 VACCINE (3 - Booster for Pfizer series)] Future Scheduled 2022-07-02 INFLUENZA VACCINE [facility] Test 11:52:24 [code = INFLUENZA VACCINE] Future Scheduled 2021-07-24 Hepatitis C screening [facility] Test 05:00:31 (procedure) [code = 997055567] Future Scheduled 2021-07-24 COLONOSCOPY SCREENING [facility] Test 05:00:31 [code = COLONOSCOPY SCREENING] Future Scheduled 2021-07-24 SHINGLES VACCINES (#1) M [facility] Test 05:00:31 [code = SHINGLES VACCINES (#1)] Future Scheduled 2021-07-24 65+ [facility]OCOCCAL [facility] Test 05:00:31 VACCINE (1 of 2 [...] odist Hospital Test 05:00:31 (procedure) [code = 960931378] Future Scheduled 2021-07-24 [facility] 05:00:31 [code = COLONOSCOPY SCREENING] [...] series)] Future Scheduled DIABETES: RETINAL EYE Me [facility] Test EXAM [code = DIABETES: RETINAL EYE EXAM] Future Scheduled DIABETIC FOOT EXAM [facility] Test [code = DIABETIC FOOT EXAM] Future Scheduled URINE MICROALBUMIN [facility] Test [code = URINE MICROALBUMIN] Future Scheduled [facility] C [facility] (procedure) [code = 267677060] Future Scheduled COLONOSCOPY SCREENING [facility] [...] Type Clinicians Facility Department ID 2022-02-[address] [facility] [id number] [place] 05:20:47 [id number] Health 2022-02-[address] [facility] [id number] [place] 17:33:03 [id number] [facility] 2021-10-24 Outpatient [facility] [id number] [place] 01:03:20 , [place] [id number] [facility] 2021-07-18 [facility] [id number] [place] 01:03:13 , [place] [facility] 2018-11-23 Outpatient [facility] 7507 [facility] 08:26:33 2022-08-07 2022-08-07 Emergency [facility] [id number] Univers 13:05:00 16:31:00 YUDI [facility] 2022-08-07 2022-08-07 [facility] 1.2.840.114 [id number] Univers 13:05:00 16:31:00 Yudi RAMIREZ 350.1.13.10 ity [facility] 4.2.7.2.686 [facility] [id number] [facility] 084 Branch 2022-08-07 2022-08-07 Orders Doctor KORTNEY 1.2.840.114 [id number] Univers 00:00:00 00:00:00 Only Unassigned, DEMETRIO 350.1.13.10 ity of Community [facility] 4.2.7.2.686 [facility] [id number] [facility] 009 Branch 2022-01-23 2022-01-23 Outpatient CHIQUIS [facility] 751 4 [facility] 13:49:00 23:59:00 , WILNER 2022-01-23 2022-01-23 Office [facility] MSRDP 1.2.840.[id number] 11:20:00 11:20:00 Visit , WILNER TARIQ 350.1.13.58 [facility] 9.2.7.2.686 [id number] 2021-07-25 2021-07-26 Outpatient nullFlavo [id number] Mems[place] 18:39:00 05:59:00 r Community 13 l Cardiology Tisha chayo Thompson 2021-07-25 2021-07-25 Outpatient CHIQUIS [facility] 751 [id number] [facility] 12:39:00 23:59:00 , WILNER 2020-11-27 2020-11-27 Telephone Ernst, 1.2.840.1 [id number] [id number] [facility] 00:00:00 00:00:00 Marie Cordova 76727.1.[address] 3.430.2.7 Hospit a .3.186741 l .8 2020-11-15 2020-11-15 Office Patience, 1.2.840.1 [id number] [facility] 09:46:20 10:31:38 Visit Yariel 33560.1.[address] 3.430.2.7 Hospit a .3.581357 l .8 2020-11-15 2020-11-15 Outpatient PATIENCEChano, [facility] [id number] [place] 00:00:00 00:00:[address] [facility] 2020-11-15 2020-11-15 Travel 1.2.840.1 1.2.070.803 [id number] Methodi 00:00:00 00:00:[address] 3.430.2.7 0.2.7.3.698 Ho spita .3.728365 084.8 l .8 2020-10-27 2020-10-30 [facility] 1.2.840.1 [id number] [id number] Methodi 22:09:00 14:42:[address] 17137.1.[address] 3.430.2.7 Hospit a .3.243243 l .8 2020-10-23 2020-10-23 Telephone Barron, 1.2.840.1 [id number] 2099 [id number] Methodi 00:00:00 00:00:[address] 3.430.2.7 Hospit a .3.826960 l .8 2020-10-12 2020-10-12 Telephone Ernst, 1.2.840.1 [id number] 2099 [id number] Methodi 00:00:00 00:00:00 Marie Cordova 37923.1.[address] 3.430.2.7 Hospit a .3.535998 l .8 2020-10-11 2020-10-11 Hospital [place], 1.2.840.1 [id number] 2100 [id number] Methodi 09:53:00 17:25:00 Encounter Yariel 20830.1.[address] 3.430.2.7 Hospit a .3.014588 l .8 2020-10-11 2020-10-11 Surgery [place], 1.2.840.1 [id number] [id number] Methodi 12:00:00 14:30:[address] 3.430.2.7 Hospit a .3.728304 l .8 2020-10-11 2020-10-11 Anesthesia Tal Ríos 1.2.840.1 [id number] Methodi 12:09:00 14:27:00 Event Josue Marygrupo Sanchezu 57131.1.[address] 3.430.2.7 Hospit a .3.808158 l .8 2020-10-11 2020-10-11 Office [place], 1.2.840.1 [id number] 89675 64873 Methodi 12:33:48 12:38:48 Visit Yariel 46668.1.[address] 3.430.2.7 Hospit a .3.398960 l .8 2020-10-11 2020-10-11 Office [place], 1.2.840.1 [id number] Methodi 09:10:55 09:41:46 Visit Yariel 38606.1.[address] 3.430.2.7 Hospit a .3.773253 l .8 2020-10-11 2020-10-11 Outpatient BISM[place], [facility] [id number] [place] 00:00:00 00:00:00 YARIEL [address] 2020-10-11 2020-10-11 Outpatient [place], [facility] [id number] [place] 00:00:00 00:00:00 YARIEL [address] 2020-10-11 2020-10-11 Travel 1.2.840.1 1.2.516.877 [id number] [id number] Methodi 00:00:00 00:00:[address] 3.430.2.7 0.2.7.3.698 Ho spita .3.638441 084.8 l .8 2020-10-08 2020-10-08 [facility] 1.2.840.1 [id number] Methodi 12:52:24 23:59:00 Encounter , Denzel 04618.1.[address] 3.430.2.7 Hospit a .3.545155 l .8 2020-10-08 2020-10-08 Pre-Admiss [place], 1.2.840.1 [id number] 21 [id number] Methodi 11:56:39 12:56:39 ion Yariel 79627.1.[address] Testing 3.430.2.7 Hospit a .3.118401 l .8 2020-10-08 2020-10-08 Outpatient BISMUTH, [facility] [id number] [place] 00:00:00 00:00:00 YARIEL [address] 2020-10-08 2020-10-08 Travel 1.2.840.1 1.2.626.553 2648 [id number] Methodi 00:00:00 00:00:[address] 3.430.2.7 0.2.7.3.698 Ho spita .3.696228 084.8 l .8 2020-10-02 2020-10-02 Orders Ablola, 1.2.840.1 [id number] Methodi 00:00:00 00:00:00 Only Hanna 90981.1.[address] 3.430.2.7 Hospit a .3.684455 l .8 2020-09-28 2020-09-28 Prep for Dukes, 1.2.840.1 [id number] 76683 Methodi 00:00:00 00:00:00 Surgery Marie Cordova 69209.1.[address] 3.430.2.7 Hospit a .3.697313 l .8 2020-09-28 2020-09-28 Telephone Ernst, 1.2.840.1 [id number] 2099 [id number] Methodi 00:00:00 00:00:00 Marie Cordova 92362.1.[address] 3.430.2.7 Hospit a .3.893642 l .8 2020-09-27 2020-09-27 Telemedici Carolynn, 1.2.840.1 [id number] Methodi 08:25:25 08:42:51 [address]iel [address]384.1.[address] 3.430.2.7 Hospit a .3.111458 l .8 2020-09-15 2020-09-15 Clinical Kimberly, 1.2.840.1 [id number] Methodi 11:11:28 11:15:21 Support Michael 90086.1.[address] P. 3.430.2.7 Hospit a .3.719397 l .8 2020-09-11 2020-09-11 Office Barbrajovi, 1.2.840.1 [id number] Methodi 13:00:15 13:47:40 Visit Doreen 58289.1.[address] 3.430.2.7 Hospit a .3.884050 l .8 2020-09-11 2020-09-11 Travel 1.2.840.1 1.2.560.584 9088 [id number] Methodi 00:00:00 00:00:[address] 3.430.2.7 0.2.7.3.698 Ho spita .3.984637 084.8 l .8 2020-08-30 2020-08-30 Office Carolynn, 1.2.840.1 [id number] 26457 Methodi 11:30:06 12:52:40 Visit Yariel 90705.1.[address] 3.430.2.7 Hospit a .3.027177 l .8 2020-08-30 2020-08-30 Travel 1.2.840.1 1.2.844.107 2372 [id number] [facility]i 00:00:00 00:00:[address] 3.430.2.7 0.2.7.3.698 Ho spita .3.578969 084.8 l .8 2020-08-25 2020-08-25 Clinical 1.2.840.1 [id number] 00445 Methodi 12:03:53 12:13:[address] 3.430.2.7 Hospit a .3.247253 l .8 2020-08-25 2020-08-25 Travel 1.2.840.1 1.2.916.253 5237 [id number] Methodi 00:00:00 00:00:[address] 3.430.2.7 0.2.7.3.698 Ho spita .3.981741 084.8 l .8 2020-08-21 2020-08-21 [facility] 1.2.840.1 [id number] Methodi 16:26:08 16:35:25 Visit Edmundo post 52723.1.[address] 3.430.2.7 Hospit a .3.548662 l .8 2020-08-21 2020-08-21 Outpatient [facility] [id number] [address] [place] [address] 00:00:00 00:00:[address] 2020-08-21 2020-08-21 Travel 1.2.840.1 1.2.893.053 0533 [id number] Methodi 00:00:00 00:00:[address] 3.430.2.7 0.2.7.3.698 Ho spita .3.760546 084.8 l .8 2020-08-20 2020-08-20 Telephone Dukes, 1.2.840.1 [id number] 2099 [id number] Methodi 00:00:00 00:00:00 Marie Cordova 22838.1.[address] 3.430.2.7 Hospit a .3.272246 l .8 2020-08-14 2020-08-14 Telephone Ernst, 1.2.840.1 [id number] 2100 [id number] Methodi 00:00:00 00:00:00 Marie Cordova 67019.1.[address] 3.430.2.7 Hospit a .3.107069 l .8 2020-07-15 2020-07-15 Emergency [facility] 1.2.178.881 [id number] 18:28:00 23:48:00 Rip Ramirez 350.1.13.10 [place] 4.2.7.2.686 [place] [id number] [facility] 2020-07-15 2020-07-15 Emergency [facility] 1.2.778.420 [id number] [facility] 18:28:00 23:48:00 Rip Ramirez 350.1.13.10 i ty of [place] 4.2.7.2.686 [facility] [id number] [address] 2020-07-15 2020-07-15 Emergency X [facility] ERT [id number] Univers 18:28:00 23:48:00 RIP islas [facility] 2020-06-25 2020-06-25 Refill Ekbaluo, 1.2.840.1 [id number] Methodi 00:00:00 00:00:[address] 3.430.2.7 Hospit a .3.908011 l .8 2020-02-14 2020-02-14 Outpatient EKERUO, [facility] [id number] [place] 00:00:00 00:00:00 DOREEN [address] 2020-02-14 2020-02-14 Outpatient EKER, [facility] [id number] [place] 00:00:00 00:00:00 DOREEN [address] 2020-02-09 2020-02-10 Outpatient nullFlavo [id number] [facility] 16:27:00 04:59:00 r Community 10 l Cardiology Tisha nn Donna 2020-02-09 2020-02-09 Outpatient ANELRAYEMI [facility] CAR 751 0 [facility] 11:27:00 11:27:00 , WILNER 2019-09-27 2019-09-27 Outpatient [facility] [id number] [place] 00:00:00 00:00:00 EDMUNDO POST 651 Me odi 2019-09-21 2019-09-21 Outpatient [facility] [id number] [place] 00:00:00 00:00:00 EDMUNDO POST 589 Me thodi 2019-09-21 2019-09-21 Outpatient [facility] [id number] [place] 00:00:00 00:00:00 EDMUNDO POST 592 Me odi 2019-08-11 2019-08-12 [place] [id number] [facility] 17:10:00 05:59:00 r Community 09 l Cardiology Tisha nn Donna 2019-08-11 2019-08-11 Outpatient [facility] CAR 7509 [facility] 11:10:00 11:10:00 2019-07-08 2019-07-09 Emergency [facility] [id number] [place] 00:00:00 00:00:00 847 Method i 2019-07-04 2019-07-05 Outpatient BISMUTH, [facility] [id number] [place] 00:00:00 00:00:00 YARIEL 266 Method i 2019-05-31 2019-05-31 Outpatient BISMUT, [facility] [id number] [place] 00:00:00 00:00:00 YARIEL 271 Method i 2019-05-30 2019-05-30 Outpatient ATHANASSIOU [facility] [id number] [place] 00:00:00 00:00:00 , DENZEL 044 Meth hiren 2019-05-05 2019-05-06 Outpatient nullFlavo [id number] Memoria 15:37:00 04:59:00 r Community 08 l Cardiology Tisha nn Donna 2019-05-05 2019-05-05 Outpatient [facility] 7508 [facility] 10:37:00 10:37:00 2019-05-03 2019-05-04 Emergency SILVERMAN, JERMAIN [facility] [id number] [place] 00:00:00 00:00:00 768 Method i 2019-04-22 2019-04-27 Inpatient , [facility] [id number] [place] 00:00:00 00:00:00 XENA 995 Method i 2019-04-11 2019-04-18 Inpatient PROSPER, [facility] [id number] [place] 00:00:00 00:00:00 TYESHA 756 Metho di 2019-03-17 2019-04-08 Wound Care nullFlavo [facility] 8538 [id number] Memoria 15:00:00 21:08:00 r Sg 02 l [facility] 2019-02-15 2019-03-17 Wound Care nullFlavo [facility] 8538 [id number] Memoria 20:00:00 04:59:00 r Sg 01 l [facility] 2019-01-13 2019-02-12 Wound Care nullFlavo [facility] 8538 [id number] Memoria 17:56:00 04:59:00 r Sg 00 l [facility] 2019-01-21 2019-01-22 Outpt Diag nullFlavo [facility] [id number] Memoria 19:21:00 04:59:00 Services r Outpatient 02 l [facility] 2018-11-18 2018-11-19 Outpatient nullFlavo [id number] Memoria 13:52:00 04:59:00 r Community 06 l Cardiology Tisha chayo Thompson 2018-11-18 2018-11-18 Outpatient [facility] [id number] [facility] 08:52:00 08:52:00 2018-09-21 2018-09-22 Outpatient nullFlavo [id number] Memoria 19:55:00 05:59:00 r Community 04 l Cardiology Tisha chayo Thompson 2018-06-22 2018-06-22 Outpatient MHIE MHIE [id number] [place] 13:00:00 13:00:00 09 cayden Bettencourt 2018-06-22 2018-06-22 Outpatient MHIE MHIE [id number] [place] 13:00:00 13:00:00 09 cayden Bettencourt 2018-06-22 2018-06-22 Outpatient MHIE MHIE [id number] Mem[place] 13:00:00 13:00:00 09 cayden [place] 2018-03-03 2018-03-05 Phone nullFlavo MNA [id number] Mem[facility] 18:18:00 04:59:59 Message r Neuroscienc 09 l marcy Thompson [place] 2018-02-19 2018-02-19 Outpatient MHIE MHIE [id number] [place] 14:30:00 14:30:00 07 [facility] 2018-02-19 2018-02-19 Outpatient MHIE MHIE [id number] Memoria 14:30:00 14:30:00 07 cayden [place] 2018-02-19 2018-02-19 Outpatient MHIE MHIE [id number] Mem[place] 14:30:00 14:30:00 07 [facility] 2018-01-12 2018-01-13 Outpatient nullFlavo [id number] Memoria 17:59:00 04:59:[address] 2017-12-31 2018-01-01 Outpatient nullFlavo [facility] [place] 8538 [id number] Memoria 11:40:00 04:59:00 r [place] 03 [facility] 2017-12-28 2017-12-28 Outpatient MHIE MHIE [id number] Memoria 12:30:00 12:30:00 08 [facility] 2017-12-28 2017-12-28 Outpatient MHIE MHIE [id number] Memoria 12:30:00 12:30:00 08 [facility] 2017-12-28 2017-12-28 Outpatient MHIE MHIE [id number] Memoria 12:30:00 12:30:00 08 cayden [place] 2017-12-23 2017-12-25 Phone nullFlavo MNA [id number] Memoria 14:53:00 04:59:59 Message r Neuroscienc 08 l e Donna [place] 2017-12-22 2017-12-24 Phone nullFlavo MNA [id number] Memoria 19:14:00 04:59:59 Message r Neuroscienc 07 l e Donna [place] 2017-12-18 2017-12-20 Phone nullFlavo MNA [id number] Memoria 16:40:00 04:59:59 Message r Neurosurger 06 l y [facility] Tisha [facility] 2017-12-17 2017-12-19 Phone nullFlavo MNA [id number] Memoria 15:39:00 04:59:59 Message r Neuroscienc 05 l e Donna Bettencourt 2017-12-11 2017-12-12 Outpt Diag nullFlavo [facility] [id number] Memoria 17:57:00 04:59:00 Services r Outpatient 01 l Imaging Sg Trenty 2017-12-10 2017-12-11 Outpatient nullFlavo [id number] Memoria 17:52:00 04:59:00 r Community 01 l Cardiology Tisha [facility] 2017-12-08 2017-12-08 Outpatient MHIE MHIE [id number] Memoria 11:00:00 11:00:00 06 cayden [place] 2017-12-08 2017-12-08 Outpatient MHIE MHIE [id number] Memoria 11:00:00 11:00:00 06 cayden Bettencourt 2017-12-08 2017-12-08 Outpatient MHIE MHIE [id number] Memoria 11:00:00 11:00:00 06 cayden Sg 2017-12-03 2017-12-03 Outpatient MHIE MHIE [id number] Memoria 15:30:00 15:30:00 05 cayden Sg 2017-12-03 2017-12-03 Outpatient MHIE MHIE [id number] Memoria 15:30:00 15:30:00 05 cayden Sg 2017-12-03 2017-12-03 Outpatient MHIE MHIE [id number] Memoria 15:30:00 15:30:00 05 cayden Sg 2017-12-01 2017-12-03 Phone nullFlavo MNA [id number] Memoria 14:49:00 04:59:59 Message r Neuroscienc 04 l marcy Thompson Sg 2017-10-21 2017-10-21 Outpatient MHIE MHIE [id number] Memoria 13:00:00 13:00:00 04 cayden Bettencourt 2017-10-21 2017-10-21 Outpatient MHIE MHIE [id number] Memoria 13:00:00 13:00:00 04 cayden Bettencourt 2017-10-21 2017-10-21 Outpatient MHIE MHIE [id number] Memoria 13:00:00 13:00:00 04 cayden Bettencourt 2017-10-13 2017-10-15 Phone nullFlavo MNA [id number] Memoria 19:16:00 04:59:59 Message r Neurology 03 l Donna Bettencourt 2017-09-22 2017-09-22 Outpatient MHIE MHIE [id number] [place] 11:30:00 11:30:00 02 cayden Bettencourt 2017-09-22 2017-09-22 Outpatient MHIE MHIE [id number] Memoria 11:30:00 11:30:00 02 cayden Bettencourt 2017-09-22 2017-09-22 Outpatient MHIE MHIE [id number] Memoria 11:30:00 11:30:00 02 cayden Sg 2017-09-09 2017-09-09 Outpatient nullFlavo [id number] Memoria 18:40:00 18:40:00 r [facility] 00 l Cardiology Tisha Thompson 2017-09-03 2017-09-05 Phone nullFlavo MNA [id number] Memoria 22:44:00 05:59:59 Message r Neuroscienc 02 l e Donna [place] 2017-08-31 2017-08-31 Outpatient MHIE MHIE [id number] Memoria 13:30:00 13:30:00 03 cayden [place] 2017-08-31 2017-08-31 Outpatient MHIE MHIE [id number] Memoria 13:30:00 13:30:00 03 cayden Bettencourt 2017-08-31 2017-08-31 Outpatient MHIE MHIE [id number] Memoria 13:30:00 13:30:00 03 cayden WalkerSg 2017-08-26 2017-08-28 Phone nullFlavo MNA [id number] Memoria 17:47:00 05:59:59 Message r Neurology 01 l Donna Bettencourt 2017-08-24 2017-08-26 Phone nullFlavo MNA [id number] Memoria 21:44:00 05:59:59 Message r Neurology 00 l Donna Bettencourt 2017-08-06 2017-08-07 Outpt Diag nullFlavo [facility] [id number] Memoria 17:51:00 05:59:00 Services r Outpatient 00 l Imaging Sg Thompson 2017-07-24 2017-07-25 Outpatient nullFlavo MNA [id number] Memoria 19:00:00 05:59:59 r Neuroscienc 01 Zara Bettencourt 2017-07-24 2017-07-25 Outpatient nullFlavo MNA [id number] Memoria 19:00:00 05:59:59 r Neuroscienc 01 Zara Bettencourt 2017-07-24 2017-07-25 Outpatient nullFlavo MNA [id number] Memoria 19:00:00 05:59:59 r Neuroscienc 01 Zara Walkerann 2017-07-24 2017-07-24 Outpatient MHMISCHER MHMISCHER [id number] 13:00:00 23:59:59 2017-07-24 2017-07-24 Outpatient MHMISCHER MHMISCHER [id number] 13:00:00 23:59:59 2017-07-24 2017-07-24 Outpatient MHIE MHIE [id number] Memoria 13:00:00 13:00:00 cayden Sg 2017-07-24 2017-07-24 Outpatient MHIE MHIE [id number] Memoria 13:00:00 13:00:00 cayden Bettencourt 2017-07-22 2017-07-24 Phone nullFlavo MNA [id number] Memoria 17:58:00 05:59:59 Message r Neurology 01 cayden Bettencourt 2017-07-22 2017-07-24 Phone nullFlavo MNA [id number] Memoria 17:58:00 05:59:59 Message r Neurology 01 cayden Bettencourt 2017-07-22 2017-07-24 Phone nullFlavo MNA [id number] Memoria 17:58:00 05:59:59 Message r Neurology 01 cayden Bettencourt 2017-07-22 2017-07-23 Outpatient MHMISCHER MHMISCHER [id number] 11:58:00 23:59:59 2017-07-22 2017-07-23 Outpatient MHMISCHER MHMISCHER [id number] 11:58:00 23:59:59 2017-04-06 2017-04-06 Emergency nullFlavo [facility] [id number] Memoria 19:12:00 21:32:00 debbie Bettencourt 02 [facility] 2017-04-06 2017-04-06 Emergency nullFlavo [facility] [id number] Memoria 19:12:00 21:32:00 r [place] 02 [facility] 2017-04-06 2017-04-06 Emergency [facility] [id number] Memoria 19:12:00 21:32:00 r [place] 02 [facility] 2017-04-06 2017-04-06 Outpatient Ashish, 2.16.840. 2.16.840.1. 3 [id number] 14:12:00 16:32:00 Rogerio [id number] 2017-04-06 2017-04-06 Outpatient Ashish, 2.16.840. 2.16.840.1. 3 [id number] 14:12:00 16:32:00 Rogerio [id number] 5.120 2017-04-06 2017-04-06 Outpatient [place] [id number] Memoria 13:00:00 13:00:00 00 [facility] 2017-04-06 2017-04-06 Outpatient [place] [id number] Memoria 13:00:00 13:00:00 00 [facility] 2017-04-06 2017-04-06 Outpatient [place] [id number] Memoria 13:00:00 13:00:00 00 [facility] Results Test Description Test Time Test Comments Results Result Comments Source TROPONIN I 2022-08-07 21:15:24 Test Item Value Reference Range Interpretation Comme nts TROPONIN I (test code = 0.004 ng/mL See_Comment [Au tomated message] The [id number]) system which ge nerated this result tra nsmitted reference range : <=0.034. The reference r kevin was not used to int erpret this result as normal/abnormal . TRISTA (test code = TRISTA) Reference (Normal) Range (defined by the 99th percentile reference limit): <= 0.034 ng/mL Note: Cardiac troponin begins to rise 3-4 hours after the onset of ischemia. Repeat in 4-6 hours if the sample was drawn within 3-4 hours of the onset of the symptom and found normal. Diagnosis of myocardial injury is made with acute changes in cTn concentrations with at least one serial sample above the 99th percentile upper reference limit (URL), taken together with the patient's clinical presentation. Biotin has been reported to cause a negative bias, interpret results relative to patient's use of biotin. Lab Interpretation Normal (test code = 97913-5) [id number] 21:12:20 Test Item Value Reference Range Interpretation Comments NT-proBNP (test code 42 pg/mL See_Comment [Autom ated = 3614952883) message] The system which generated this result transmitted reference range : <=125. The reference range was not used to interpret this result as normal/abnormal . TRISTA (test code = TRISTA) Biotin has been reported to cause a negative bias, interpret results relative to patient's use of biotin. Lab Interpretation Normal (test code = 99800-5) [facility] (63856)2022-08-07 21:03:40 Test Item Value Reference Range Interpretation Comments NA (test code = 137 mmol/L 135-145 8147092219) K (test code = 4.9 mmol/L 3.5-5.0 0061941463) CL (test code = 100 mmol/L 98-108 5017644694) CO2 TOTAL (test code = 33 mmol/L 23-31 H 0342483898) AGAP (test code = 2-16 5313136848) BUN (test code = 10 mg/dL 7-23 3209817671) GLUCOSE (test code = 123 mg/dL 70-110 H 1365494720) CREATININE (test code = 0.64 mg/dL 0.60-1.25 4486222746) TOTAL BILI (test code = 1.0 mg/dL 0.1-1.4 1150464226) CALCIUM (test code = 8.3 mg/dL 8.6-10.6 L 3570667472) T PROTEIN (test code = 7.1 g/dL 6.3-8.2 3234521172) ALBUMIN (test code = 4.2 g/dL 3.5-5.0 4185770575) ALK PHOS (test code = 75 U/L 34-122 4540219305) ALTv (test code = 38 U/L 5-50 1742-6) AST(SGOT) (test code = 40 U/L 13 1442985014) eGFR (test code = mL/min/1.73m2 7136886384) TRISTA (test code = TRISTA) Association of [...] tests). Lab Interpretation Abnormal (test code = 24094-2) [facility] WITH [id number] 20:55:16 Test Item Value Reference Range Interpretation Comments WBC (test code = See_Comment [Automated 6441-2) message] The sy stem which generated this result transmitted reference range : 4.20 - 10.70 10*3/?L. The reference range was not used to interpret this result as normal/abnormal . RBC (test code = See_Comment [Automated 313-8) message] The sy stem which generated this result transmitted reference range : 4.26 - 5.52 10*6/?L. The reference range was not used to interpret this result as normal/abnormal . HGB (test code = 17.0 g/dL 12.2-16.4 H 718-7) HCT (test code = 52.4 % 38.4-49.3 H 4544-3) MCV (test code = 98.9 fL 81.7-95.6 H 787-2) MCH (test code = 32.1 pg 26.1-32.7 785-6) MCHC (test code = 32.4 g/dL 31.2-35.0 786-4) RDW-SD (test code = 50.7 fL 38.5-51.6 28550-9) RDW-CV (test code = 13.8 % 12.1-15.4 788-0) PLT (test code = See_Comment [Automated 777-3) message] The sy stem which generated this result transmitted reference range : 150 - 328 10*3/ ?L. The reference r kevin was not used to interpret this result as normal/abnormal . MPV (test code = 9.4 fL 9.8-13.0 L 35050-5) NRBC/100 WBC (test See_Comment [Automat ed code = 1106259605) message] The system which generated this result transmitted reference range : 0.0 - 10.0 /100 WBCs. The refer ence range was not u sed to interpret th is result as normal/abnormal . NRBC x10^3 (test code See_Comment [Auto mated = 2082774436) message] The s ystem which generated this result transmitted reference range : 10*3/?L. The reference range was not used to interpret this result as normal/abnormal . GRAN MAT (NEUT) % 78.2 % (test code = 770-8) IMM GRAN % (test code 0.50 % = 6892409599) LYMPH % (test code = 12.2 % 736-9) MONO % (test code = 6.2 % 5905-5) EOS % (test code = 2.3 % 713-8) BASO % (test code = 0.6 % 706-2) GRAN MAT x10^3(ANC) 6.61 10*3/uL 1.99-6.95 (test code = 2514518889) IMM GRAN x10^3 (test 0.04 10*3/uL 0.00-0.06 code = 4266373422) LYMPH x10^3 (test code 1.03 10*3/uL 1.09-3.23 L = 731-0) MONO x10^3 (test code 0.52 10*3/uL 0.36-1.02 = 742-7) EOS x10^3 (test code = 0.19 10*3/uL 0.06-0.53 711-2) BASO x10^3 (test code 0.05 10*3/uL 0.01-0.09 = 704-7) Lab Interpretation Abnormal (test code = 80188-7) [facility] acute hospital 12 [id number] 17:06:02 Test Item Value Reference Range Interpretation [...] 02:22,-Atrial fibrillation has replaced Sinus rhythm- [facility] 12 [id number] 17:06:02 Test Item Value Reference Range Interpretation [...] 29-OCT-2020 02:22,-Atrial fibrillation has replaced Sinus rhythm- [facility] [id number] 17:06:02 Test Item Value Reference Range Interpretation [...] 29-OCT-2020 02:22,-Atrial fibrillation has replaced Sinus rhythm- [facility]2021-04-12 18:36:35 Test Item Value Reference Range Interpretation Comments Urine culture No growth Specimen isolate (test after 24 [facility]-7) hours Source: [facility] Site: [facility]2021-04-12 18:36:35 Test Item Value Reference Range Interpretation Comments Urine culture No growth Specimen isolate (test after 24 [facility] code = 37854-3) hours Source: [facility] Site: [facility]2021-04-12 18:36:35 Test Item Value Reference Range Interpretation Comments Urine culture No growth Specimen isolate (test after 24 InformationSpe [facility] code = 63637-1) hours Source: [facility] Site: [facility] Abdomen Pelvis W [id number] 00:10:11CT ABDOMEN PELVIS W CONTRAST CLINICAL INDICATION: [...] identified. 2. See above for chronic findings. RM-JDOAXS2 Interface, Radiology Results [facility] - 10/28/2020 7:[address] ABDOMEN [...] abnormality is identified.2. See above for chronic findings.RM-XDMIMA8PupwnscywFormerly [facility] Abdomen 1 [id number] 17:40:27EXAMINATION: XR ABDOMEN 1 PORTABLE CLINICAL HISTORY: Nausea vomiting IMPRESSION: There are vascular grafts present. There are postoperative changes in the lumbar spine. Intestinal gas pattern is nonspecific. There is no free intraperitoneal air. [facility]-[id number] Interface, Radiology Results 10/28/2020 12:43 PM CDT EXAMINATION:XR ABDOMEN 1 PORTABLECLINICAL HISTORY: Nausea vomitingIMPRESSION:There are vascular grafts present. There are postoperative changes in the lumbar spine. Intestinal gas pattern is nonspecific. There is no free intraperitoneal air.[facility]-[id number] [facility] Chest 1 Ucileake4436-28-39 13:09:24EXAMINATION: XR CHEST 1 PORTABLE CLINICAL HISTORY: preop COMPARISON: 10/08/2020 IMPRESSION: 1.Cardi omediastinal silhouette is stable. The central vasculature is normal. 2.There are some mild atelectatic changes versus scarring in the right base, stable. The lungs are otherwise clear without consolidation or effusion. There is no pneumothorax [id number]_PS08Hm Interface, Radiology Results Incoming 10/28/2020 8:12 AM CDT EXAMINATION: XR CHEST1 PORTABLECLINICAL HISTORY: preopCOMPARISON: 10/08/2020IMPRESSION:1.Cardiomediastinal silhouette is stable. The central vasculature is normal.2.There are some mild atelectatic changes versus scarring in the right base, stable. The lungs are otherwise clear without consolidation or effusion. There isno pneumothorax1D2RAD_PS08MethNortheastern CenterLvhxjsvkWCIS-KeB-6 (COVID-19) RNA [Presence] in Respiratory specimen by KAMAR with probe detection 2020-10-28 04:14:06 Test Item Value Reference Range Interpretation Comments SARS-CoV-2 (COVID-19) RNA Not detected Not-Detected [Presence] in Respiratory specimen by KAMAR with probe detection (test code = 79598-6) [facility] or iicbnstosud6674-83-24 17:33:49See operative report for the same dayMethodist HospitalArterial [id number] 17:27:06Tal Ríos Jr., MD 01/05/2021 2:37 PMArterial line Performed by: anesthesia residentAnesthesiologist: Tal Ríos Jr., Eldat/GEOLOGY INSTRUCTOR/AA: Hitesh Ibanez, CRNAAuthorized by: Tal Ríos Jr., MD Pre-procedure: [...] tolerated the procedure well with no immediate ltumavknumwlbTdcudm7017-37-73 17:17:00Hitesh Ibanez CRNA 10/11/2020 12:46 PMAirway Date/Time: 10/11/2020 12:17 PM Location: OR Performedby: LATA/AAAnesthesiologist: Tal Ríos Jr., Miguel/LATA/AA: Hitesh Ibanez CRNAAuthorized by: Tal Ríos Jr., [...] Number of Attempts at Approach: 1ECG Pre/Post [id number] 00:40:58 Test Item Value Reference Range Interpretation Comments Ventricular rate (test code = 253) Atrial rate (test code = 255) VA interval (test code = 266) QRSD interval [...] branch block is no longer present- [facility] Pre/Post [id number] 00:40:58 Test Item Value Reference Range Interpretation Comments Ventricular rate (test code = 253) Atrial rate (test code = 255) VA interval (test code = 266) QRSD interval [...] branch block is no longer present- [facility] Pre/Post [id number] 00:40:58 Test Item Value Reference Range Interpretation Comments Ventricular rate (test code = 253) Atrial rate (test code = 255) VA interval (test code = 266) QRSD interval [...] bundle branch block is no longer present[facility] RNA [Presence] in Respiratory specimen by KAMAR with probe [id number] 21:03:56 Test Item Value Reference Range Interpretation Comments SARS-CoV-2 (COVID-19) RNA Not detected Not-Detected [Presence] in Respiratory specimen by KAMAR with probe detection (test code = 73213-2) [facility] 2 [id number] 19:03:33EXAMINATION: XR CHEST 2 VW CLINICAL HISTORY: 69 years Male I87.1 Compression of vein, R60.0 Localized edema, surgery COMPARISON: 05/30/2019 IMPRESSION: 1.The cardiomediastinal silhouette is normal.2.Noevidence pulmonary edema. No focal consolidations. Minimal atelectasis right lung base.3.Regional skeletal structures are diffusely osteopenic. [facility]-EV27SUIBZz Interface, Radiology Results Incoming - 10/08/2020 2:06 PM CDT EXAMINATION: XR CHEST 2 VWCLINICAL HISTORY: 69 years Male I87.1 Compression of vein, R60.0 Localized edema, surgeryCOMPARISON: 05/30/2019IMPRESSION:1.The cardiomediastinal silhouette is normal.2.No evidence pulmonary edema. No focal consolidations. Minimal atelectasis right lung base.3.Regional skeletal structures are diffusely osteopenic.[facility]-[id number] [facility] [id number] 01:41:00 Test Item Value Reference Range Interpretation Comments APTT Patient (test See_Comment [Automat ed code = 3173-2) message] The system which generated this result transmitted reference range : 23 - 38 Seconds . The reference range was not used to interpr et this result as normal/abnormal . TRISTA (test code = TRISTA) The [facility] patient population mean normal value for aPTT is 30 seconds. Lab Interpretation Normal (test code = 99436-3) [facility] CenterProthrom[facility] Time (PT) / [id number] 01:39:00 Test Item Value Reference Range Interpretation [...] tions. Lab Interpretation (test Abnormal code = 59984-8) [facility] CenterTroponin [id number] 01:34:00 Test Item Value Reference Range Interpretation Comments TROPONIN I (test <0.012 See_Comment [Automated code = 8712824848) message] The system which generated this result [...] ? Lab Interpretation Normal (test code = 66972-4) [facility] Center[facility]AL [id number] 01:31:00 Test Item Value Reference Range Interpretation Comments NT-proBNP (test code 33 pg/mL See_Comment [Autom ated = 9936811575) message] The system which generated this result transmitted reference range : <=125. The reference range was not used to interpret this result as normal/abnormal . TRISTA (test code = TRISTA) Biotin has been reported to cause a negative bias, interpret results relative to patient's use of biotin. Lab Interpretation Normal (test code = 03796-9) [facility] CenterCBC with [id number] 01:25:00 Test Item Value Reference Range Interpretation Comments WBC (test code = See_Comment [Automated 7890-2) message] The sy stem which generated this result transmitted reference range : 4.20 - 10.70 10*3/?L. The reference range was not used to interpret this result as normal/abnormal . RBC (test code = See_Comment [Automated 179-8) message] The sy stem which generated this [...] RDW-SD (test code = 49.6 fL 38.5-51.6 19535-2) RDW-CV (test code = 14.4 % 12.1-15.4 788-0) PLT (test code = See_Comment H [Automated 577-3) message] The sy stem which generated this result transmitted reference range : 150 - 328 10*3/ ?L. The reference r kevin was not used to interpret this result as normal/abnormal . MPV (test code = 9.2 fL 9.8-13 L 11467-0) NRBC/100 WBC (test See_Comment [Automat ed code = 3019576498) message] The system which generated this result transmitted reference range : 0.0 - 10.0 /100 WBCs. The refer ence range was not u sed to interpret th is result as normal/abnormal . NRBC x10^3 (test code <0.01 See_Comment [Auto mated = 7475623250) message] The s ystem which generated this result transmitted reference range : 10*3/?L. The reference range was not used to interpret this result as normal/abnormal . GRAN MAT (NEUT) % 78.6 % (test code = 770-8) IMM GRAN % (test code 0.40 % = 6902881729) LYMPH % (test code = 11.4 % 736-9) MONO % (test code = 6.8 % 5905-5) EOS % (test code = 2.3 % 713-8) BASO % (test code = 0.5 % 706-2) GRAN MAT x10^3(ANC) 6.61 10*3/uL 1.99-6.95 (test code = 9271386830) IMM GRAN x10^3 (test 0.03 10*3/uL 0-0.06 code = 2027122714) LYMPH x10^3 (test code 0.96 10*3/uL 1.09-3.23 L = 731-0) MONO x10^3 (test code 0.57 10*3/uL 0.36-1.02 = 742-7) EOS x10^3 (test code = 0.19 10*3/uL 0.06-0.53 711-2) BASO x10^3 (test code 0.04 10*3/uL 0.01-0.09 = 704-7) Lab Interpretation Abnormal (test code = 87018-2) [facility] Metabolic Panel (NA, K, CL, CO2, GLUCOSE, BUN, CREATININE, CA)2020-07-16 01:24:00 Test Item Value Reference Range Interpretation Comments NA (test code = 139 mmol/L 135-145 9989808126) K (test code = 4.3 mmol/L 3.5-5 [id number]) CL (test code = 100 mmol/L 98-108 7051233791) CO2 TOTAL (test code = 31 mmol/L 23-31 9960524315) AGAP (test code = 2-16 2283210061) BUN (test code = 11 mg/dL 7-23 8446337228) GLUCOSE (test code = 118 mg/dL 70-110 H 6918712704) CREATININE (test code = 0.80 mg/dL 0.6-1.25 5131386449) CALCIUM (test code = 9.2 mg/dL 8.6-10.6 5984301048) eGFR Calculation mL/min/1.73m2 (Non-) (test code = 9149400257) eGFR Calculation mL/min/1.73m2 () (test code = 7668680065) TRISTA (test code = TRISTA) Association of [...] tests). Lab Interpretation Abnormal (test code = 89022-6) [facility] (ALB, T.PRO, BILI T, BU/BC, ALT, AST, ALK PHOS)2020-07-16 01:24:00 Test Item Value Reference Range Interpretation Comments TOTAL BILI (test code = 6704976567) 0.5 mg/dL 0.1-1.1 BILI UNCON (test code = 2399997211) 0.4 mg/dL 0.1-1.1 BILI CONJ (test code = 1476685818) 0.0 mg/dL 0-0.3 T PROTEIN (test code = 0168067714) 7.2 g/dL 6.3-8.2 ALBUMIN (test code = 7968914206) 4.2 g/dL 3.5-5 ALK PHOS (test code = 2864064353) 82 U/L 34-122 ALTv (test code = 1742-6) 34 U/L 5-50 AST(SGOT) (test code = 4703994052) 30 U/L 13-40 Lab Interpretation (test code = Normal 61634-4) [facility] NOW RAPID TESTING)2020-07-16 01:23:00 Test Item Value Reference Range Interpretation Comments SARS-CoV-2 Rapid ID NOW Positive Not Detected A (test code = 25460-1) TRISTA (test code = TRISTA) ID NOW COVID-19 Assay is an isothermal nucleic acid amplification test intended for the qualitative detection of nucleic acid from SARS-CoV-2 viral RNA in nasopharyngeal (IMMIGRATION SPECIALIST) specimens. It is used under Emergency Use [...] indicated. Lab Interpretation Abnormal (test code = 93674-6) [facility] 1 [id number] 00:46:41Impression: Bibasilar atelectasis.Exam: XR CHEST 1 07/15/2020 [...] size is within normal limits. IMPRESSIONImpression: Bibasilar atelectasis.[facility] CenterERYTHROMYCIN:SUSC:PT:ISOLATE:ORDQN:[id number] 17:15:00 Test Item Value Reference Range Interpretation Comments Gram Stain Report No Wbc'S Or Organisms (test code = Gram Seen Stain Report) [facility]kinannERYTHROMYCIN:SUSC:PT:ISOLATE:ORDQN:[id number] 17:15:00 Test Item Value Reference Range Interpretation Comments Culture: Rare Staphylococcus Aspirate/Body Species, Not S. aureus , Fluid/Tissue (test Upon Supplemental Testing, code = Culture: This Isolate Was Not Found Aspirate/Body To Be Resistant To Fluid/Tissue) Clindamycin By An Inducible Mechanism. [facility] CenterERYTHROMYCIN:SUSC:PT:ISOLATE:ORDQN:[id number] 17:15:00 Test Item Value Reference Range Interpretation Comments Staphylococcus Species, Staphylococcus Not S. aureus (test Species, Not S. aureus code = Staphylococcus Species, Not S. aureus) [facility] CenterCulture: [id number] 17:15:00 Test Item Value Reference Range Interpretation Comments Culture: Anaerobic No Anaerobes Isolated (test code = Culture: Anaerobic) [facility]: [id number] 18:30:00 Test Item Value Reference Range Interpretation Comments Culture: Anaerobic No Anaerobes Isolated (test code = Culture: Anaerobic) [facility] CenterGram Stain [id number] 18:30:00 Test Item Value Reference Range Interpretation Comments Gram Stain Report No Wbc'S Or Organisms (test code = Gram Seen Stain Report) [facility] CenterCulture: Aspirate/Body Fluid/[id number] 18:30:00 Test Item Value Reference Range Interpretation Comments Culture: Growth In Subculture Broth Aspirate/Body Only : Gram Pos Rods Fluid/Tissue (test Suggestive of Diphtheroids code = Culture: Staphylococcus Species, Not Aspirate/Body S. aureus Fluid/Tissue) [facility] METABOLIC [id number] 13:44:00 Test Item Value Reference Range Interpretation [...] 38-126 N (test code = ALKP) PROTHROMBIN [id number] 13:32:00 Test Item Value Reference Range Interpretation [...] myocar dial infarction. 2.0 - 3.0 3. Cotton Classer Aide al prosthesis hear t valves, recurre nt systemic emboli sm. 3.0 - 4.5 PTT [id number] 13:32:00 Test Item Value Reference Range Interpretation Comments PTT ACTIVATED (test code = APTT) 27.1 SECONDS 22.0-33.0 N CBC W/AUTO [id number] 13:22:00 Test Item Value Reference Range Interpretation [...] = 0.00 K/mm3 0.0-0.1 N NRBC#) PROTHROMBIN [id number] 16:01:00 Test Item Value Reference Range Interpretation [...] dial infarction. 2. 0 - 3.0 3. Cotton Classer Aide al prosthesis hear t valves, recurre nt systemic emboli sm. 3.0 - 4.5 Comments to Building Specialist: TAKES XARELTOPTT [id number] 16:01:00 Test Item Value Reference Range Interpretation Comments PTT ACTIVATED (test code = APTT) 30.4 SECONDS 22.0-33.0 N Comments to Building Specialist: TAKES XARELTOCARDIAC [id number] 19:37:00 Test Item Value Reference Range Interpretation Comments Troponin-I (test code no gt See_Comment [Auto mated message] The = Troponin-I) system which g enerated this result transmit caio reference range : <=0.40. The reference r kevin was not used to interpr et this result as aileen l/abnormal. [facility]ARD[facility] [id number] 19:37:00 Test Item Value Reference Range Interpretation Comments CK MB (test code = CK MB) 7.4 0.5-3.6 [facility] AbcamannCARSolar Pool TechnologiesAC [id number] 19:37:00 Test Item Value Reference Range Interpretation Comments Total CK (test code = Total CK) 215 12-191 [facility] HermannCARSolar Pool TechnologiesAC [id number] 19:37:00 Test Item Value Reference Range Interpretation Comments CK-MB INDEX (test 3.4 See_Comment [Automate d message] The code = CK-MB INDEX) system w [facility] generated this result transmit caio reference range : <=2.5. The reference range was not used to interpr et this result as aileen l/abnormal. [employer] [id number] 19:37:00 Test Item Value Reference Range Interpretation Comments A/G Ratio (test code = A/G Ratio) 1.1 0.7-1.6 [facility] [employer] [id number] 19:37:00 Test Item Value Reference Range Interpretation Comments AGAP (test code = AGAP) 8.3 10.0-20.0 [facility] [employer] [id number] 19:37:00 Test Item Value Reference Range Interpretation Comments Globulin (test code = Globulin) 3.6 2.7-4.2 [facility] [employer] [id number] 19:37:00 Test Item Value Reference Range Interpretation Comments B/C Ratio (test code = B/C Ratio) 21 6-25 [facility]2017-09-18 19:37:00 Test Item Value Reference Range Interpretation Comments eGFR (test code = eGFR) 93 [facility]2017-09-18 19:37:00 Test Item Value Reference Range Interpretation Comments Bili Total (test code = Bili Total) 0.4 0.2-1.3 [facility]2017-09-18 19:37:00 Test Item Value Reference Range Interpretation Comments Alk Phos (test code = Alk Phos) 109 39-136 [facility]2017-09-18 19:37:00 Test Item Value Reference Range Interpretation Comments ASPARTATE TRANSAMINASE 31 See_Comment [Aut omated message] (test code = ASPARTATE The s ystem which TRANSAMINASE) generated this result transmitted ref erence range: <=37. Th e reference range was not used to interpr et this result as normal/abnormal . [facility]2017-09-18 19:37:00 Test Item Value Reference Range Interpretation Comments ALANINE AMINOTRANSFERASE 40 See_Comment [A utomated message] (test code = ALANINE The sys tem which AMINOTRANSFERASE) generated this result transmitted ref erence range: <=65. Th e reference range was not used to int erpret this result as normal/abnormal . [facility]2017-09-18 19:37:00 Test Item Value Reference Range Interpretation Comments Total Protein (test code = Total 7.4 6.4-8.4 Protein) [facility]2017-09-18 19:37:00 Test Item Value Reference Range Interpretation Comments Albumin Lvl (test code = Albumin Lvl) 3.8 3.5-5.0 [facility]2017-09-18 19:37:00 Test Item Value Reference Range Interpretation Comments Calcium Lvl (test code = Calcium Lvl) 8.9 8.5-10.5 [facility]2017-09-18 19:37:00 Test Item Value Reference Range Interpretation Comments CO2 (test code = CO2) 28 24-32 [facility]2017-09-18 19:37:00 Test Item Value Reference Range Interpretation Comments Sodium Lvl (test code = Sodium Lvl) 138 135-145 [facility]2017-09-18 19:37:00 Test Item Value Reference Range Interpretation Comments Potassium Lvl (test code = Potassium 4.3 3.5-5.1 Lvl) [facility]2017-09-18 19:37:00 Test Item Value Reference Range Interpretation Comments Chloride Lvl (test code = Chloride Lvl) 106 95-109 [facility]2017-09-18 19:37:00 Test Item Value Reference Range Interpretation Comments Creatinine Lvl (test code = Creatinine 0.80 0.50-1.40 Lvl) [facility]2017-09-18 19:37:00 Test Item Value Reference Range Interpretation Comments BUN (test code = BUN) 17 7-22 [facility]2017-09-18 19:37:00 Test Item Value Reference Range Interpretation Comments Glucose Lvl (test code = Glucose Lvl) 109 70-99 [facility] HospitalTzvyetdPMWSFKVGFE0238-86-63 19:37:00 Test Item Value Reference Range Interpretation Comments Segs-Bands # (test code = Segs-Bands #) 6.5 1.5-8.1 [facility] CenterLockitronMARCUM [facility] [id number] 19:37:00 Test Item Value Reference Range Interpretation Comments Troponin-I (test code no gt See_Comment [Auto mated message] The = Troponin-I) system which g enerated this result transmit caio reference range : <=0.40. The reference r kevin was not used to interpr et this result as aileen l/abnormal. [facility] HospitalUdqpwkwDQFZGVXQNS7147-09-65 19:37:00 Test Item Value Reference Range Interpretation Comments Monocytes # (test code 0.6 See_Comment [Aut omated message] The = Monocytes #) system which generated this result tra nsmitted reference range : <=0.8. The reference r kevin was not used to int erpret this result as normal/abnormal . [facility] CenterBroadway Networks [id number] 19:37:00 Test Item Value Reference Range Interpretation Comments CK MB (test code = CK MB) 7.4 0.5-3.6 [facility] Ho[id number] 19:37:00 Test Item Value Reference Range Interpretation Comments Lymphocytes # (test code = Lymphocytes 1.6 1.0-5.5 #) [facility] [id number] 19:37:00 Test Item Value Reference Range Interpretation Comments Total CK (test code = Total CK) 215 12-191 [facility] HospitalAkgefcuAYYUSNQHJI6264-42-28 19:37:00 Test Item Value Reference Range Interpretation Comments Eosinophils # (test code 0.3 See_Comment [A utomated message] The = Eosinophils #) system whic h generated this result tra nsmitted reference range : <=0.5. The reference r kevin was not used to int erpret this result as normal/abnormal . [facility] CenterCARDIAC [id number] 19:37:00 Test Item Value Reference Range Interpretation Comments CK-MB INDEX (test 3.4 See_Comment [Automate d message] The code = CK-MB INDEX) system w hich generated this result transmit caio reference range : <=2.5. The reference range was not used to interpr et this result as aileen l/abnormal. [facility] HospitalKioiethYFUACJLNLE4142-16-77 19:37:00 Test Item Value Reference Range Interpretation Comments Basophils (test code = 0.6 See_Comment [Aut omated message] The Basophils) system which ge nerated this result tra nsmitted reference range : <=1.0. The reference r kevin was not used to int erpret this result as normal/abnormal . [facility] CenterJfgdhvzSYIQZVFSBG7999-43-77 19:37:00 Test Item Value Reference Range Interpretation Comments Monocytes (test code = Monocytes) 6.1 2.0-12.0 [facility]ufkinAxxia Pharmaceuticals [id number] 19:37:00 Test Item Value Reference Range Interpretation Comments A/G Ratio (test code = A/G Ratio) 1.1 0.7-1.6 [facility] Cent[id number] 19:37:00 Test Item Value Reference Range Interpretation Comments Eosinophils (test code = 3.0 See_Comment [A utomated message] The Eosinophils) system which ge nerated this result tra nsmitted reference range : <=4.0. The reference r kevin was not used to int erpret this result as normal/abnormal . [facility]kinAxxia Pharmaceuticals [id number] 19:37:00 Test Item Value Reference Range Interpretation Comments AGAP (test code = AGAP) 8.3 10.0-20.0 [facility] HospitalIdvnfpwFZGNLLPHAP5904-84-97 19:37:00 Test Item Value Reference Range Interpretation Comments Basophils # (test code 0.1 See_Comment [Aut omated message] The = Basophils #) system which generated this result tra nsmitted reference range : <=0.2. The reference r kevin was not used to int erpret this result as normal/abnormal . [facility] HospitalFnrlgpzXBWUYSGNKA0824-80-76 19:37:00 Test Item Value Reference Range Interpretation Comments Lymphocytes (test code = Lymphocytes) 18.2 20.0-40.0 [facility]2017-09-18 19:37:00 Test Item Value Reference Range Interpretation Comments Globulin (test code = Globulin) 3.6 2.7-4.2 [facility] HospitalIhmczwpGYQYTLLURI4954-33-68 19:37:00 Test Item Value Reference Range Interpretation Comments Segs (test code = Segs) 72.1 45.0-75.0 [facility]2017-09-18 19:37:00 Test Item Value Reference Range Interpretation Comments B/C Ratio (test code = B/C Ratio) 21 6-25 [facility] HospitalEczahhjTJKPQMQCWS6954-64-29 19:37:00 Test Item Value Reference Range Interpretation Comments aPTT (test code = aPTT) 31.4 s 22.9-35.8 [facility]2017-09-18 19:37:00 Test Item Value Reference Range Interpretation Comments eGFR (test code = eGFR) 93 [facility] HospitalMcfkcxoHEBSPPPEKM8343-53-43 19:37:00 Test Item Value Reference Range Interpretation Comments PROTIME (test code = PROTIME) 12.6 s 12.0-14.7 [facility]2017-09-18 19:37:00 Test Item Value Reference Range Interpretation Comments Bili Total (test code = Bili Total) 0.4 0.2-1.3 [facility] HospitalXtdpwbqHBOXZZLUJE3152-32-73 19:37:00 Test Item Value Reference Range Interpretation Comments INR (test code = INR) 0.92 0.85-1.17 [facility]2017-09-18 19:37:00 Test Item Value Reference Range Interpretation Comments Alk Phos (test code = Alk Phos) 109 39-136 [facility] HospitalBgkjroeXIWXGJFEXI6832-14-75 19:37:00 Test Item Value Reference Range Interpretation Comments MCHC (test code = MCHC) 34.4 32.0-36.0 [facility]2017-09-18 19:37:00 Test Item Value Reference Range Interpretation Comments ASPARTATE TRANSAMINASE 31 See_Comment [Aut omated message] (test code = ASPARTATE The s ystem which TRANSAMINASE) generated this result transmitted ref erence range: <=37. Th e reference range was not used to interpr et this result as normal/abnormal . [facility] HospitalPrskwvcXDXODJAXKF7319-73-41 19:37:00 Test Item Value Reference Range Interpretation Comments MCH (test code = MCH) 31.1 pg 27.0-31.0 [facility]2017-09-18 19:37:00 Test Item Value Reference Range Interpretation Comments ALANINE AMINOTRANSFERASE 40 See_Comment [A utomated message] (test code = ALANINE The sys tem which AMINOTRANSFERASE) generated this result transmitted ref erence range: <=65. Th e reference range was not used to int erpret this result as normal/abnormal . [facility] HospitalKynngpqGBKDAHLNJY1152-72-84 19:37:00 Test Item Value Reference Range Interpretation Comments WBC X 10x3 (test code = WBC X 10x3) 9.0 3.7-10.4 [facility]2017-09-18 19:37:00 Test Item Value Reference Range Interpretation Comments Total Protein (test code = Total 7.4 6.4-8.4 Protein) [facility] HospitalEgsosxiSCPPFELPEZ3572-23-90 19:37:00 Test Item Value Reference Range Interpretation Comments RBC X 10x6 (test code = RBC X 10x6) 5.24 4.70-6.10 [facility]2017-09-18 19:37:00 Test Item Value Reference Range Interpretation Comments Albumin Lvl (test code = Albumin Lvl) 3.8 3.5-5.0 [facility] HospitalKaprhaeTNWXEFSBJJ0846-34-78 19:37:00 Test Item Value Reference Range Interpretation Comments Platelet (test code = Platelet) 334 133-450 [facility]2017-09-18 19:37:00 Test Item Value Reference Range Interpretation Comments Calcium Lvl (test code = Calcium Lvl) 8.9 8.5-10.5 [facility] HospitalLckybngXQOMRYWCAT4007-66-39 19:37:00 Test Item Value Reference Range Interpretation Comments RDW (test code = RDW) 14.3 11.5-14.5 [facility]2017-09-18 19:37:00 Test Item Value Reference Range Interpretation Comments CO2 (test code = CO2) 28 24-32 [facility] HospitalGadcpyyVRQYPKFKJE5052-79-20 19:37:00 Test Item Value Reference Range Interpretation Comments MPV (test code = MPV) 7.3 7.4-10.4 [facility]2017-09-18 19:37:00 Test Item Value Reference Range Interpretation Comments Sodium Lvl (test code = Sodium Lvl) 138 135-145 [facility] HospitalQxrdsiyJAXLTSBNQZ9681-28-89 19:37:00 Test Item Value Reference Range Interpretation Comments MCV (test code = MCV) 90.4 80.0-94.0 [facility]2017-09-18 19:37:00 Test Item Value Reference Range Interpretation Comments Potassium Lvl (test code = Potassium 4.3 3.5-5.1 Lvl) [facility] HospitalGzttncoQTMFQQTKYZ4311-27-69 19:37:00 Test Item Value Reference Range Interpretation Comments Hct (test code = Hct) 47.4 42.0-54.0 [facility]2017-09-18 19:37:00 Test Item Value Reference Range Interpretation Comments Chloride Lvl (test code = Chloride Lvl) 106 95-109 [facility] HospitalKvwtyejUCPDODRVDD6425-58-50 19:37:00 Test Item Value Reference Range Interpretation Comments Hgb (test code = Hgb) 16.3 14.0-18.0 [facility]2017-09-18 19:37:00 Test Item Value Reference Range Interpretation Comments Creatinine Lvl (test code = Creatinine 0.80 0.50-1.40 Lvl) [facility]2017-09-18 19:37:00 Test Item Value Reference Range Interpretation Comments BUN (test code = BUN) 17 7-22 [facility]2017-09-18 19:37:00 Test Item Value Reference Range Interpretation Comments Glucose Lvl (test code = Glucose Lvl) 109 70-99 [facility] HospitalHnlgznsPJPPBXXJIF5975-34-33 19:37:00 Test Item Value Reference Range Interpretation Comments Segs-Bands # (test code = Segs-Bands #) 6.5 1.5-8.1 [facility] HospitalEispwgrYIQWDVISMR5743-57-19 19:37:00 Test Item Value Reference Range Interpretation Comments Monocytes # (test code 0.6 See_Comment [Aut omated message] The = Monocytes #) system which generated this result tra nsmitted reference range : <=0.8. The reference r kevin was not used to int erpret this result as normal/abnormal . [facility] HospitalHsvzqklCNTWPAMVPW8593-04-74 19:37:00 Test Item Value Reference Range Interpretation Comments Lymphocytes # (test code = Lymphocytes 1.6 1.0-5.5 #) [facility] HospitalPabyggpUTWVUMXFON2310-26-13 19:37:00 Test Item Value Reference Range Interpretation Comments Eosinophils # (test code 0.3 See_Comment [A utomated message] The = Eosinophils #) system [facility] h generated this result tra nsmitted reference range : <=0.5. The reference r kevin was not used to int erpret this result as normal/abnormal . [facility] HospitalQdpidriHHULVRZESV5371-34-14 19:37:00 Test Item Value Reference Range Interpretation Comments Basophils (test code = 0.6 See_Comment [Aut omated message] The Basophils) system which ge nerated this result tra nsmitted reference range : <=1.0. The reference r kevin was not used to int erpret this result as normal/abnormal . [facility] HospitalCeigkjuAUEUQETNPF7659-27-60 19:37:00 Test Item Value Reference Range Interpretation Comments Monocytes (test code = Monocytes) 6.1 2.0-12.0 [facility] HospitalRubjrzyXPNESGQBUM4805-96-25 19:37:00 Test Item Value Reference Range Interpretation Comments Eosinophils (test code = 3.0 See_Comment [A utomated message] The Eosinophils) system which ge nerated this result tra nsmitted reference range : <=4.0. The reference r kevin was not used to int erpret this result as normal/abnormal . [facility] HospitalHoduddrZWIOUEMGUK3710-16-44 19:37:00 Test Item Value Reference Range Interpretation Comments Basophils # (test code 0.1 See_Comment [Aut omated message] The = Basophils #) system which generated this result tra nsmitted reference range : <=0.2. The reference r kevin was not used to int erpret this result as normal/abnormal . [facility] HospitalUeyxvgtHHPAYIAISN3081-62-57 19:37:00 Test Item Value Reference Range Interpretation Comments Lymphocytes (test code = Lymphocytes) 18.2 20.0-40.0 [facility] HospitalKqkrrkiUGGOKYYFWB2813-14-29 19:37:00 Test Item Value Reference Range Interpretation Comments Segs (test code = Segs) 72.1 45.0-75.0 [facility] HospitalCwkkhabYAPWSOXRGR4766-44-09 19:37:00 Test Item Value Reference Range Interpretation Comments aPTT (test code = aPTT) 31.4 s 22.9-35.8 [facility] HospitalOvxcelqLTXDXXGIUY5458-06-40 19:37:00 Test Item Value Reference Range Interpretation Comments PROTIME (test code = PROTIME) 12.6 s 12.0-14.7 [facility] HospitalZocbbaoZQLNFEHYLI6361-51-68 19:37:00 Test Item Value Reference Range Interpretation Comments INR (test code = INR) 0.92 0.85-1.17 [facility] HospitalCseyfvwJXIBMUDQXY8666-39-51 19:37:00 Test Item Value Reference Range Interpretation Comments MCHC (test code = MCHC) 34.4 32.0-36.0 [facility] HospitalWaoobrvLZQELVHBHK1798-14-63 19:37:00 Test Item Value Reference Range Interpretation Comments MCH (test code = MCH) 31.1 pg 27.0-31.0 [facility] HospitalWqlxwpoBZVGGDIZUP8435-94-70 19:37:00 Test Item Value Reference Range Interpretation Comments WBC X 10x3 (test code = WBC X 10x3) 9.0 3.7-10.4 [facility] HospitalXvjjukhOMRNBDDFEP8214-00-65 19:37:00 Test Item Value Reference Range Interpretation Comments RBC X 10x6 (test code = RBC X 10x6) 5.24 4.70-6.10 [facility] HospitalBaznozyTFEXKXEWVV1355-06-40 19:37:00 Test Item Value Reference Range Interpretation Comments Platelet (test code = Platelet) 334 133-450 [facility] HospitalObcgvmtQQZJUUMVPA2649-13-93 19:37:00 Test Item Value Reference Range Interpretation Comments RDW (test code = RDW) 14.3 11.5-14.5 [facility] HospitalTctwimyFLAHHHBKOP1121-68-47 19:37:00 Test Item Value Reference Range Interpretation Comments MPV (test code = MPV) 7.3 7.4-10.4 [facility] HospitalQdlivirFSLLUBUVLH1064-10-56 19:37:00 Test Item Value Reference Range Interpretation Comments MCV (test code = MCV) 90.4 80.0-94.0 [facility] HospitalYjncjneIHSAEBAHGM5933-97-28 19:37:00 Test Item Value Reference Range Interpretation Comments Hct (test code = Hct) 47.4 42.0-54.0 [facility] HospitalUlvshzkTPHUAMSLUT4442-89-61 19:37:00 Test Item Value Reference Range Interpretation Comments Hgb (test code = Hgb) 16.3 14.0-18.0 [facility] HospitalXyucxwqUUOPGZMYRV6416-96-13 19:37:00 Test Item Value Reference Range Interpretation Comments Monocytes # (test code 0.6 See_Comment [Aut omated message] The = Monocytes #) system which generated this result tra nsmitted reference range : <=0.8. The reference r kevin was not used to int erpret this result as normal/abnormal . [facility] HospitalOsivmibUABEKJBTEB2370-89-85 19:37:00 Test Item Value Reference Range Interpretation Comments Lymphocytes # (test code = Lymphocytes 1.6 1.0-5.5 #) [facility] HospitalItibgnnPFQDQZWCAH3517-68-22 19:37:00 Test Item Value Reference Range Interpretation Comments Eosinophils # (test code 0.3 See_Comment [A utomated message] The = Eosinophils #) system whic h generated this result tra nsmitted reference range : <=0.5. The reference r kevin was not used to int erpret this result as normal/abnormal . [facility] HospitalUiuahziPHOYXONAIL9779-48-34 19:37:00 Test Item Value Reference Range Interpretation Comments Basophils (test code = 0.6 See_Comment [Aut omated message] The Basophils) system which ge nerated this result tra nsmitted reference range : <=1.0. The reference r kevin was not used to int erpret this result as normal/abnormal . [facility] HospitalEzvuruhLEUZDETNMX9531-01-50 19:37:00 Test Item Value Reference Range Interpretation Comments Monocytes (test code = Monocytes) 6.1 2.0-12.0 [facility] HospitalWbuxlwxZUUVTUPWVH8567-35-63 19:37:00 Test Item Value Reference Range Interpretation Comments Eosinophils (test code = 3.0 See_Comment [A utomated message] The Eosinophils) system which ge nerated this result tra nsmitted reference range : <=4.0. The reference r kevin was not used to int erpret this result as normal/abnormal . [facility] HospitalCracinzKPKXUCXBIT6520-83-82 19:37:00 Test Item Value Reference Range Interpretation Comments Basophils # (test code 0.1 See_Comment [Aut omated message] The = Basophils #) system which generated this result tra nsmitted reference range : <=0.2. The reference r kevin was not used to int erpret this result as normal/abnormal . [facility] HospitalExxglctIRYNYKIBLC7277-29-89 19:37:00 Test Item Value Reference Range Interpretation Comments Lymphocytes (test code = Lymphocytes) 18.2 20.0-40.0 [facility] HospitalRenrprxMWEWXAFJYI8395-14-62 19:37:00 Test Item Value Reference Range Interpretation Comments Segs (test code = Segs) 72.1 45.0-75.0 [facility] HospitalEwmabzzRSLYNUHWXQ0271-86-92 19:37:00 Test Item Value Reference Range Interpretation Comments aPTT (test code = aPTT) 31.4 s 22.9-35.8 [facility] HospitalOsoebzuQULUFYCUFN0652-98-75 19:37:00 Test Item Value Reference Range Interpretation Comments PROTIME (test code = PROTIME) 12.6 s 12.0-14.7 [facility] HospitalEyzalacJYHUSCJTQW1198-99-52 19:37:00 Test Item Value Reference Range Interpretation Comments INR (test code = INR) 0.92 0.85-1.17 [facility] HospitalNuqjffqXHWAMWPOTR1381-21-35 19:37:00 Test Item Value Reference Range Interpretation Comments MCHC (test code = MCHC) 34.4 32.0-36.0 [facility] HospitalWeeakwzTDKOIZESIF2976-34-76 19:37:00 Test Item Value Reference Range Interpretation Comments MCH (test code = MCH) 31.1 pg 27.0-31.0 [facility] HospitalUuwprmoQNUZGONRAW2829-94-19 19:37:00 Test Item Value Reference Range Interpretation Comments WBC X 10x3 (test code = WBC X 10x3) 9.0 3.7-10.4 [facility] HospitalOkmolkkIZAWBNJOVJ1920-92-78 19:37:00 Test Item Value Reference Range Interpretation Comments RBC X 10x6 (test code = RBC X 10x6) 5.24 4.70-6.10 [facility] HospitalPyiocvcBTGJZKJELM0385-55-56 19:37:00 Test Item Value Reference Range Interpretation Comments Platelet (test code = Platelet) 334 133-450 [facility]kinPsztywxZMCHVQIPKB0521-35-63 19:37:00 Test Item Value Reference Range Interpretation Comments RDW (test code = RDW) 14.3 11.5-14.5 [facility] LufkinItdzjzwRBNXXFXVLL8383-01-92 19:37:00 Test Item Value Reference Range Interpretation Comments MPV (test code = MPV) 7.3 7.4-10.4 [facility] LufkinYzhpnrjRNYGNTULKD0579-59-88 19:37:00 Test Item Value Reference Range Interpretation Comments MCV (test code = MCV) 90.4 80.0-94.0 [facility] LufkinTyhwkijHPKMZVRLCG7905-23-59 19:37:00 Test Item Value Reference Range Interpretation Comments Hct (test code = Hct) 47.4 42.0-54.0 [facility] LufkinXtxwcinBYVSZQOKQS8382-24-90 19:37:00 Test Item Value Reference Range Interpretation Comments Hgb (test code = Hgb) 16.3 14.0-18.0 [facility] LufkinOneRiotAC [id number] 19:37:00 Test Item Value Reference Range Interpretation Comments Troponin-I (test code no gt See_Comment [Auto mated message] The = Troponin-I) system which g enerated this result transmit caio reference range : <=0.40. The reference r kevin was not used to interpr et this result as aileen l/abnormal. [facility] [employer]NetworksCARSolar Pool TechnologiesAC [id number] 19:37:00 Test Item Value Reference Range Interpretation Comments CK MB (test code = CK MB) 7.4 0.5-3.6 [facility] LufkinOpen Air PublishingCARSolar Pool TechnologiesAC [id number] 19:37:00 Test Item Value Reference Range Interpretation Comments Total CK (test code = Total CK) 215 12-191 [facility] CenterCARSolar Pool TechnologiesAC [id number] 19:37:00 Test Item Value Reference Range Interpretation Comments CK-MB INDEX (test 3.4 See_Comment [Automate d message] The code = CK-MB INDEX) system w [facility] generated this result transmit caio reference range : <=2.5. The reference range was not used to interpr et this result as aileen l/abnormal. [facility] [employer]worksCHEM [id number] 19:37:00 Test Item Value Reference Range Interpretation Comments A/G Ratio (test code = A/G Ratio) 1.1 0.7-1.6 [facility]2017-09-18 19:37:00 Test Item Value Reference Range Interpretation Comments AGAP (test code = AGAP) 8.3 10.0-20.0 [place] [id number] 19:37:00 Test Item Value Reference Range Interpretation Comments Globulin (test code = Globulin) 3.6 2.7-4.2 [facility]2017-09-18 19:37:00 Test Item Value Reference Range Interpretation Comments B/C Ratio (test code = B/C Ratio) 21 6-25 [facility]2017-09-18 19:37:00 Test Item Value Reference Range Interpretation Comments eGFR (test code = eGFR) 93 [facility]2017-09-18 19:37:00 Test Item Value Reference Range Interpretation Comments Bili Total (test code = Bili Total) 0.4 0.2-1.3 [facility]2017-09-18 19:37:00 Test Item Value Reference Range Interpretation Comments Alk Phos (test code = Alk Phos) 109 39-136 [facility]2017-09-18 19:37:00 Test Item Value Reference Range Interpretation Comments ASPARTATE TRANSAMINASE 31 See_Comment [Aut omated message] (test code = ASPARTATE The s ystem which TRANSAMINASE) generated this result transmitted ref erence range: <=37. Th e reference range was not used to interpr et this result as normal/abnormal . [facility]2017-09-18 19:37:00 Test Item Value Reference Range Interpretation Comments ALANINE AMINOTRANSFERASE 40 See_Comment [A utomated message] (test code = ALANINE The sys tem which AMINOTRANSFERASE) generated this result transmitted ref erence range: <=65. Th e reference range was not used to int erpret this result as normal/abnormal . [facility]2017-09-18 19:37:00 Test Item Value Reference Range Interpretation Comments Total Protein (test code = Total 7.4 6.4-8.4 Protein) [facility]2017-09-18 19:37:00 Test Item Value Reference Range Interpretation Comments Albumin Lvl (test code = Albumin Lvl) 3.8 3.5-5.0 [facility]2017-09-18 19:37:00 Test Item Value Reference Range Interpretation Comments Calcium Lvl (test code = Calcium Lvl) 8.9 8.5-10.5 [facility]2017-09-18 19:37:00 Test Item Value Reference Range Interpretation Comments CO2 (test code = CO2) 28 24-32 [facility]2017-09-18 19:37:00 Test Item Value Reference Range Interpretation Comments Sodium Lvl (test code = Sodium Lvl) 138 135-145 [facility]2017-09-18 19:37:00 Test Item Value Reference Range Interpretation Comments Potassium Lvl (test code = Potassium 4.3 3.5-5.1 Lvl) [facility]2017-09-18 19:37:00 Test Item Value Reference Range Interpretation Comments Chloride Lvl (test code = Chloride Lvl) 106 95-109 [facility]2017-09-18 19:37:00 Test Item Value Reference Range Interpretation Comments Creatinine Lvl (test code = Creatinine 0.80 0.50-1.40 Lvl) [facility]2017-09-18 19:37:00 Test Item Value Reference Range Interpretation Comments BUN (test code = BUN) 17 7-22 [facility]2017-09-18 19:37:00 Test Item Value Reference Range Interpretation Comments Glucose Lvl (test code = Glucose Lvl) 109 70-99 [facility] HospitalIzgknoiZDUCQELVVV1307-36-50 19:37:00 Test Item Value Reference Range Interpretation Comments Segs-Bands # (test code = Segs-Bands #) 6.5 1.5-8.1 [facility] HospitalBckdbfuAFOPXVCYXW5204-01-99 19:37:00 Test Item Value Reference Range Interpretation Comments Monocytes # (test code 0.6 See_Comment [Aut omated message] The = Monocytes #) system which generated this result tra nsmitted reference range : <=0.8. The reference r kevin was not used to int erpret this result as normal/abnormal . [facility] HospitalUlspsjsEVREDJNJJS6726-44-50 19:37:00 Test Item Value Reference Range Interpretation Comments Lymphocytes # (test code = Lymphocytes 1.6 1.0-5.5 #) [facility] HospitalUkjobmtQBKJICFRJP5189-07-75 19:37:00 Test Item Value Reference Range Interpretation Comments Eosinophils # (test code 0.3 See_Comment [A utomated message] The = Eosinophils #) system whic h generated this result tra nsmitted reference range : <=0.5. The reference r kevin was not used to int erpret this result as normal/abnormal . [facility] HospitalYgrqdmtOYEGBMGOFQ3084-14-69 19:37:00 Test Item Value Reference Range Interpretation Comments Basophils (test code = 0.6 See_Comment [Aut omated message] The Basophils) system which ge nerated this result tra nsmitted reference range : <=1.0. The reference r kevin was not used to int erpret this result as normal/abnormal . [facility] HospitalNcqvdijUHIXVVOPVS2312-71-34 19:37:00 Test Item Value Reference Range Interpretation Comments Monocytes (test code = Monocytes) 6.1 2.0-12.0 [facility] HospitalWjakxdgZNUVWJKYCI8544-03-00 19:37:00 Test Item Value Reference Range Interpretation Comments Eosinophils (test code = 3.0 See_Comment [A utomated message] The Eosinophils) system which ge nerated this result tra nsmitted reference range : <=4.0. The reference r kevin was not used to int erpret this result as normal/abnormal . [facility] HospitalZocooibKGWBDXYWSI7278-68-81 19:37:00 Test Item Value Reference Range Interpretation Comments Basophils # (test code 0.1 See_Comment [Aut omated message] The = Basophils #) system which generated this result tra nsmitted reference range : <=0.2. The reference r kevin was not used to int erpret this result as normal/abnormal . [facility] HospitalWyqgtabRERHAUKBHM7180-84-21 19:37:00 Test Item Value Reference Range Interpretation Comments Lymphocytes (test code = Lymphocytes) 18.2 20.0-40.0 [facility] HospitalAvgzwvtZVACNVJUFC5618-71-07 19:37:00 Test Item Value Reference Range Interpretation Comments Segs (test code = Segs) 72.1 45.0-75.0 [facility] HospitalXijlvokQZNUTVTFLK5385-37-61 19:37:00 Test Item Value Reference Range Interpretation Comments aPTT (test code = aPTT) 31.4 s 22.9-35.8 [facility] HospitalFrjhvvnPNKPLXMRST8772-85-13 19:37:00 Test Item Value Reference Range Interpretation Comments PROTIME (test code = PROTIME) 12.6 s 12.0-14.7 [facility] HospitalBwwjhvtSPKQVIHFLX6182-40-00 19:37:00 Test Item Value Reference Range Interpretation Comments INR (test code = INR) 0.92 0.85-1.17 [facility] HospitalTchkhcpQJKPLSSTWR3706-89-12 19:37:00 Test Item Value Reference Range Interpretation Comments MCHC (test code = MCHC) 34.4 32.0-36.0 [facility] HospitalDttairnRHYLCRKRRU9550-28-71 19:37:00 Test Item Value Reference Range Interpretation Comments MCH (test code = MCH) 31.1 pg 27.0-31.0 [facility] HospitalCvgmuooCYJLVAGXJV1457-78-63 19:37:00 Test Item Value Reference Range Interpretation Comments WBC X 10x3 (test code = WBC X 10x3) 9.0 3.7-10.4 [facility] HospitalMgmnddoKVQYMBKIYA7812-07-48 19:37:00 Test Item Value Reference Range Interpretation Comments RBC X 10x6 (test code = RBC X 10x6) 5.24 4.70-6.10 [facility] HospitalUcgpdgjTEDXQWGXPZ9052-01-80 19:37:00 Test Item Value Reference Range Interpretation Comments Platelet (test code = Platelet) 334 133-450 [facility] HospitalOpztzriOWRQJXFBCO6174-19-32 19:37:00 Test Item Value Reference Range Interpretation Comments RDW (test code = RDW) 14.3 11.5-14.5 [facility] HospitalPhqqyyzTFQAWGTZHW6409-20-79 19:37:00 Test Item Value Reference Range Interpretation Comments MPV (test code = MPV) 7.3 7.4-10.4 [facility] HospitalGchkcqkSMDIFERSFC4088-47-08 19:37:00 Test Item Value Reference Range Interpretation Comments MCV (test code = MCV) 90.4 80.0-94.0 [facility] HospitalAxxfrtlPXLNJRRZHW0251-98-84 19:37:00 Test Item Value Reference Range Interpretation Comments Hct (test code = Hct) 47.4 42.0-54.0 [facility] HospitalTuhcwqxQENKWWEEHM6156-20-95 19:37:00 Test Item Value Reference Range Interpretation Comments Hgb (test code = Hgb) 16.3 14.0-18.0 [facility] CenterCARDIAC XSNPMWQ2469-95-55 19:37:00 Test Item Value Reference Range Interpretation Comments Troponin-I (test code no gt See_Comment [Auto mated message] The = Troponin-I) system which g enerated this result transmit caio reference range : <=0.40. The reference r kevin was not used to interpr et this result as aileen l/abnormal. [facility] [employer] [id number] 19:37:00 Test Item Value Reference Range Interpretation Comments CK MB (test code = CK MB) 7.4 0.5-3.6 [facility] [employer]AC [id number] 19:37:00 Test Item Value Reference Range Interpretation Comments Total CK (test code = Total CK) 215 12-191 [facility] [employer] [id number] 19:37:00 Test Item Value Reference Range Interpretation Comments CK-MB INDEX (test 3.4 See_Comment [Automate d message] The code = CK-MB INDEX) system w [facility] generated this result transmit caio reference range : <=2.5. The reference range was not used to interpr et this result as aileen l/abnormal. [facility] [employer] [id number] 19:37:00 Test Item Value Reference Range Interpretation Comments A/G Ratio (test code = A/G Ratio) 1.1 0.7-1.6 [facility] [employer] [id number] 19:37:00 Test Item Value Reference Range Interpretation Comments AGAP (test code = AGAP) 8.3 10.0-20.0 [facility] [employer] [id number] 19:37:00 Test Item Value Reference Range Interpretation Comments Globulin (test code = Globulin) 3.6 2.7-4.2 [facility] [employer] [id number] 19:37:00 Test Item Value Reference Range Interpretation Comments B/C Ratio (test code = B/C Ratio) 21 6-25 [facility] [employer] [id number] 19:37:00 Test Item Value Reference Range Interpretation Comments eGFR (test code = eGFR) 93 [facility] [employer] [id number] 19:37:00 Test Item Value Reference Range Interpretation Comments Bili Total (test code = Bili Total) 0.4 0.2-1.3 [facility] [employer] [id number] 19:37:00 Test Item Value Reference Range Interpretation Comments Alk Phos (test code = Alk Phos) 109 39-136 [facility]2017-09-18 19:37:00 Test Item Value Reference Range Interpretation Comments ASPARTATE TRANSAMINASE 31 See_Comment [Aut omated message] (test code = ASPARTATE The s ystem which TRANSAMINASE) generated this result transmitted ref erence range: <=37. Th e reference range was not used to interpr et this result as normal/abnormal . [facility]2017-09-18 19:37:00 Test Item Value Reference Range Interpretation Comments ALANINE AMINOTRANSFERASE 40 See_Comment [A utomated message] (test code = ALANINE The sys tem which AMINOTRANSFERASE) generated this result transmitted ref erence range: <=65. Th e reference range was not used to int erpret this result as normal/abnormal . [facility]2017-09-18 19:37:00 Test Item Value Reference Range Interpretation Comments Total Protein (test code = Total 7.4 6.4-8.4 Protein) [facility]2017-09-18 19:37:00 Test Item Value Reference Range Interpretation Comments Albumin Lvl (test code = Albumin Lvl) 3.8 3.5-5.0 [facility]2017-09-18 19:37:00 Test Item Value Reference Range Interpretation Comments Calcium Lvl (test code = Calcium Lvl) 8.9 8.5-10.5 [facility]2017-09-18 19:37:00 Test Item Value Reference Range Interpretation Comments CO2 (test code = CO2) 28 24-32 [facility]2017-09-18 19:37:00 Test Item Value Reference Range Interpretation Comments Sodium Lvl (test code = Sodium Lvl) 138 135-145 [facility]2017-09-18 19:37:00 Test Item Value Reference Range Interpretation Comments Potassium Lvl (test code = Potassium 4.3 3.5-5.1 Lvl) [facility]2017-09-18 19:37:00 Test Item Value Reference Range Interpretation Comments Chloride Lvl (test code = Chloride Lvl) 106 95-109 [facility]2017-09-18 19:37:00 Test Item Value Reference Range Interpretation Comments Creatinine Lvl (test code = Creatinine 0.80 0.50-1.40 Lvl) [facility]2017-09-18 19:37:00 Test Item Value Reference Range Interpretation Comments BUN (test code = BUN) 17 7-22 [facility]2017-09-18 19:37:00 Test Item Value Reference Range Interpretation Comments Glucose Lvl (test code = Glucose Lvl) 109 70-99 [facility] HospitalOpzrlsjDFETKVGRXC0535-48-09 19:37:00 Test Item Value Reference Range Interpretation Comments Segs-Bands # (test code = Segs-Bands #) 6.5 1.5-8.1 [facility] HospitalZxcbaunZLUXAHOPLU3841-45-76 19:37:00 Test Item Value Reference Range Interpretation Comments Monocytes # (test code 0.6 See_Comment [Aut omated message] The = Monocytes #) system which generated this result tra nsmitted reference range : <=0.8. The reference r kevin was not used to int erpret this result as normal/abnormal . [facility] HospitalWbqfbqbCJFBBNLTLE2234-71-80 19:37:00 Test Item Value Reference Range Interpretation Comments Lymphocytes # (test code = Lymphocytes 1.6 1.0-5.5 #) [facility] HospitalPogeuviZXNNJKMFTL6760-43-62 19:37:00 Test Item Value Reference Range Interpretation Comments Eosinophils # (test code 0.3 See_Comment [A utomated message] The = Eosinophils #) system whic h generated this result tra nsmitted reference range : <=0.5. The reference r kevin was not used to int erpret this result as normal/abnormal . [facility] HospitalYbaegsfBTOVSTDBFS1105-15-05 19:37:00 Test Item Value Reference Range Interpretation Comments Basophils (test code = 0.6 See_Comment [Aut omated message] The Basophils) system which ge nerated this result tra nsmitted reference range : <=1.0. The reference r kevin was not used to int erpret this result as normal/abnormal . [facility] HospitalCmimqzvCORPQZJHZX3136-52-21 19:37:00 Test Item Value Reference Range Interpretation Comments Monocytes (test code = Monocytes) 6.1 2.0-12.0 [facility] HospitalWudfsalROQHWBMRGK7160-60-71 19:37:00 Test Item Value Reference Range Interpretation Comments Eosinophils (test code = 3.0 See_Comment [A utomated message] The Eosinophils) system which ge nerated this result tra nsmitted reference range : <=4.0. The reference r kevin was not used to int erpret this result as normal/abnormal . [facility] HospitalHmmdksvKFNKQLIWIZ1570-18-31 19:37:00 Test Item Value Reference Range Interpretation Comments Basophils # (test code 0.1 See_Comment [Aut omated message] The = Basophils #) system which generated this result tra nsmitted reference range : <=0.2. The reference r kevin was not used to int erpret this result as normal/abnormal . [facility] HospitalBxytqtzQLQGPWTRDP6907-96-51 19:37:00 Test Item Value Reference Range Interpretation Comments Lymphocytes (test code = Lymphocytes) 18.2 20.0-40.0 [facility] HospitalFsxevveKCWDWCNCGU0193-35-31 19:37:00 Test Item Value Reference Range Interpretation Comments Segs (test code = Segs) 72.1 45.0-75.0 [facility] HospitalIlldwloGUAGGJZTJR3297-68-29 19:37:00 Test Item Value Reference Range Interpretation Comments aPTT (test code = aPTT) 31.4 s 22.9-35.8 [facility] HospitalNmcwxhdONXPDTDLCN6618-24-22 19:37:00 Test Item Value Reference Range Interpretation Comments PROTIME (test code = PROTIME) 12.6 s 12.0-14.7 [facility] HospitalNigmcukMQGFXKEPKR7412-05-21 19:37:00 Test Item Value Reference Range Interpretation Comments INR (test code = INR) 0.92 0.85-1.17 [facility] HospitalQspfznkUDBNDLPWHI8015-28-01 19:37:00 Test Item Value Reference Range Interpretation Comments MCHC (test code = MCHC) 34.4 32.0-36.0 [facility] HospitalLixuslnPLRXZSLMGN2500-37-95 19:37:00 Test Item Value Reference Range Interpretation Comments MCH (test code = MCH) 31.1 pg 27.0-31.0 [facility] HospitalJeflpzxYCJZXHLOFP8798-53-53 19:37:00 Test Item Value Reference Range Interpretation Comments WBC X 10x3 (test code = WBC X 10x3) 9.0 3.7-10.4 [facility] HospitalIadhxgaAXWXUTPTBR3685-65-18 19:37:00 Test Item Value Reference Range Interpretation Comments RBC X 10x6 (test code = RBC X 10x6) 5.24 4.70-6.10 [facility] HospitalHsriqncCZJFAZUGQM7678-05-63 19:37:00 Test Item Value Reference Range Interpretation Comments Platelet (test code = Platelet) 334 133-450 [facility]ufkinBjuluapGRXBHRLLGD1626-78-27 19:37:00 Test Item Value Reference Range Interpretation Comments RDW (test code = RDW) 14.3 11.5-14.5 [facility] LufkinFtbkrwyGAXIMQZYJU8233-72-39 19:37:00 Test Item Value Reference Range Interpretation Comments MPV (test code = MPV) 7.3 7.4-10.4 [facility] LufkinOrgkbhbLGMQFQDBNC4426-00-53 19:37:00 Test Item Value Reference Range Interpretation Comments MCV (test code = MCV) 90.4 80.0-94.0 [facility] LufkinTsyrmvzIIQAOANUJP8754-28-22 19:37:00 Test Item Value Reference Range Interpretation Comments Hct (test code = Hct) 47.4 42.0-54.0 [facility] LufkinJajzmamXEBJHHHPTU3871-83-00 19:37:00 Test Item Value Reference Range Interpretation Comments Hgb (test code = Hgb) 16.3 14.0-18.0 [facility] LufkinOneRiotAC [id number] 19:37:00 Test Item Value Reference Range Interpretation Comments Troponin-I (test code no gt See_Comment [Auto mated message] The = Troponin-I) system which g enerated this result transmit caio reference range : <=0.40. The reference r kevin was not used to interpr et this result as aileen l/abnormal. [facility] LufkinZuvvu [id number] 19:37:00 Test Item Value Reference Range Interpretation Comments CK MB (test code = CK MB) 7.4 0.5-3.6 [facility] [facility] [id number] 19:37:00 Test Item Value Reference Range Interpretation Comments Total CK (test code = Total CK) 215 12-191 [facility] NEWPOOX5244-99-63 19:37:00 Test Item Value Reference Range Interpretation Comments CK-MB INDEX (test 3.4 See_Comment [Automate d message] The code = CK-MB INDEX) system w [facility] generated this result transmit caio reference range : <=2.5. The reference range was not used to interpr et this result as aileen l/abnormal. [facility]JBSG4110-64-01 19:37:00 Test Item Value Reference Range Interpretation Comments A/G Ratio (test code = A/G Ratio) 1.1 0.7-1.6 [place] [id number] 19:37:00 Test Item Value Reference Range Interpretation Comments AGAP (test code = AGAP) 8.3 10.0-20.0 [place] [id number] 19:37:00 Test Item Value Reference Range Interpretation Comments Globulin (test code = Globulin) 3.6 2.7-4.2 [facility]2017-09-18 19:37:00 Test Item Value Reference Range Interpretation Comments B/C Ratio (test code = B/C Ratio) 21 6-25 [place] 960747-09-18 19:37:00 Test Item Value Reference Range Interpretation Comments eGFR (test code = eGFR) 93 [facility]2017-09-18 19:37:00 Test Item Value Reference Range Interpretation Comments Bili Total (test code = Bili Total) 0.4 0.2-1.3 [facility]2017-09-18 19:37:00 Test Item Value Reference Range Interpretation Comments Alk Phos (test code = Alk Phos) 109 39-136 [facility]2017-09-18 19:37:00 Test Item Value Reference Range Interpretation Comments ASPARTATE TRANSAMINASE 31 See_Comment [Aut omated message] (test code = ASPARTATE The s ystem which TRANSAMINASE) generated this result transmitted ref erence range: <=37. Th e reference range was not used to interpr et this result as normal/abnormal . [facility]2017-09-18 19:37:00 Test Item Value Reference Range Interpretation Comments ALANINE AMINOTRANSFERASE 40 See_Comment [A utomated message] (test code = ALANINE The sys tem which AMINOTRANSFERASE) generated this result transmitted ref erence range: <=65. Th e reference range was not used to int erpret this result as normal/abnormal . [facility]2017-09-18 19:37:00 Test Item Value Reference Range Interpretation Comments Total Protein (test code = Total 7.4 6.4-8.4 Protein) [facility]2017-09-18 19:37:00 Test Item Value Reference Range Interpretation Comments Albumin Lvl (test code = Albumin Lvl) 3.8 3.5-5.0 [facility]2017-09-18 19:37:00 Test Item Value Reference Range Interpretation Comments Calcium Lvl (test code = Calcium Lvl) 8.9 8.5-10.5 [facility]2017-09-18 19:37:00 Test Item Value Reference Range Interpretation Comments CO2 (test code = CO2) 28 24-32 [facility]2017-09-18 19:37:00 Test Item Value Reference Range Interpretation Comments Sodium Lvl (test code = Sodium Lvl) 138 135-145 [facility]2017-09-18 19:37:00 Test Item Value Reference Range Interpretation Comments Potassium Lvl (test code = Potassium 4.3 3.5-5.1 Lvl) [facility]2017-09-18 19:37:00 Test Item Value Reference Range Interpretation Comments Chloride Lvl (test code = Chloride Lvl) 106 95-109 [facility]2017-09-18 19:37:00 Test Item Value Reference Range Interpretation Comments Creatinine Lvl (test code = Creatinine 0.80 0.50-1.40 Lvl) [facility]2017-09-18 19:37:00 Test Item Value Reference Range Interpretation Comments BUN (test code = BUN) 17 7-22 [facility]2017-09-18 19:37:00 Test Item Value Reference Range Interpretation Comments Glucose Lvl (test code = Glucose Lvl) 109 70-99 [facility]xciudwFIPRTQZGXG7034-48-64 19:37:00 Test Item Value Reference Range Interpretation Comments Segs-Bands # (test code = Segs-Bands #) 6.5 1.5-8.1 [facility] HospitalBkpbsfkLLPFSCHYEM8273-87-59 19:37:00 Test Item Value Reference Range Interpretation Comments Monocytes # (test code 0.6 See_Comment [Aut omated message] The = Monocytes #) system which generated this result tra nsmitted reference range : <=0.8. The reference r kevin was not used to int erpret this result as normal/abnormal . [facility] HospitalWitfhpwSWJWLUPZAO7381-52-65 19:37:00 Test Item Value Reference Range Interpretation Comments Lymphocytes # (test code = Lymphocytes 1.6 1.0-5.5 #) [facility] HospitalOuytvgpFNKKOVRVMY0888-68-05 19:37:00 Test Item Value Reference Range Interpretation Comments Eosinophils # (test code 0.3 See_Comment [A utomated message] The = Eosinophils #) system whic h generated this result tra nsmitted reference range : <=0.5. The reference r kevin was not used to int erpret this result as normal/abnormal . [facility] HospitalAoinxswDPKLEMCRBS2896-01-12 19:37:00 Test Item Value Reference Range Interpretation Comments Basophils (test code = 0.6 See_Comment [Aut omated message] The Basophils) system which ge nerated this result tra nsmitted reference range : <=1.0. The reference r kevin was not used to int erpret this result as normal/abnormal . [facility] HospitalDpffrxeRTQQSRNMWR9868-25-88 19:37:00 Test Item Value Reference Range Interpretation Comments Monocytes (test code = Monocytes) 6.1 2.0-12.0 [facility] HospitalFrxmxgpPLGSWYSEUY6865-50-86 19:37:00 Test Item Value Reference Range Interpretation Comments Eosinophils (test code = 3.0 See_Comment [A utomated message] The Eosinophils) system which ge nerated this result tra nsmitted reference range : <=4.0. The reference r kevin was not used to int erpret this result as normal/abnormal . [facility] HospitalAlgekinPMAZVAIKPY8247-82-80 19:37:00 Test Item Value Reference Range Interpretation Comments Basophils # (test code 0.1 See_Comment [Aut omated message] The = Basophils #) system which generated this result tra nsmitted reference range : <=0.2. The reference r kevin was not used to int erpret this result as normal/abnormal . [facility] HospitalHlsgmqzCLHLJTVPRD5788-28-48 19:37:00 Test Item Value Reference Range Interpretation Comments Lymphocytes (test code = Lymphocytes) 18.2 20.0-40.0 [facility] HospitalSapqdhsJZKYMFCGET7406-17-07 19:37:00 Test Item Value Reference Range Interpretation Comments Segs (test code = Segs) 72.1 45.0-75.0 [facility] HospitalBjdvhvvSNYZVBMJBD7880-61-46 19:37:00 Test Item Value Reference Range Interpretation Comments aPTT (test code = aPTT) 31.4 s 22.9-35.8 [place] 259187-09-18 19:37:00 Test Item Value Reference Range Interpretation Comments PROTIME (test code = PROTIME) 12.6 s 12.0-14.7 [facility] HospitalFymvberWJMUCABCVO4233-19-68 19:37:00 Test Item Value Reference Range Interpretation Comments INR (test code = INR) 0.92 0.85-1.17 [facility] HospitalDcmrvmvFWNAAYGXKW6955-93-78 19:37:00 Test Item Value Reference Range Interpretation Comments MCHC (test code = MCHC) 34.4 32.0-36.0 [facility] HospitalFcbjrnxGAKPTFQIJV5540-11-25 19:37:00 Test Item Value Reference Range Interpretation Comments MCH (test code = MCH) 31.1 pg 27.0-31.0 [facility] HospitalBpncfmyVKKCLZDHWD4096-45-89 19:37:00 Test Item Value Reference Range Interpretation Comments WBC X 10x3 (test code = WBC X 10x3) 9.0 3.7-10.4 [facility] HospitalEcgclzlDUFMTKSYBJ4706-96-14 19:37:00 Test Item Value Reference Range Interpretation Comments RBC X 10x6 (test code = RBC X 10x6) 5.24 4.70-6.10 [facility] HospitalZrtjyrnOUUNWOLUUU6441-94-86 19:37:00 Test Item Value Reference Range Interpretation Comments Platelet (test code = Platelet) 334 133-450 [facility] HospitalLzgvhugKUSEIXFWWT7449-87-63 19:37:00 Test Item Value Reference Range Interpretation Comments RDW (test code = RDW) 14.3 11.5-14.5 [facility] HospitalTnhgpazYGHHEYLDRA4309-49-85 19:37:00 Test Item Value Reference Range Interpretation Comments MPV (test code = MPV) 7.3 7.4-10.4 [facility] HospitalInppuyaPSZSRATOKZ5544-41-87 19:37:00 Test Item Value Reference Range Interpretation Comments MCV (test code = MCV) 90.4 80.0-94.0 [facility] HospitalNloqlqoVKDQQJYDDU7706-63-31 19:37:00 Test Item Value Reference Range Interpretation Comments Hct (test code = Hct) 47.4 42.0-54.0 [facility] HospitalGzssazwFGTJLLIRXP5628-71-98 19:37:00 Test Item Value Reference Range Interpretation Comments Hgb (test code = Hgb) 16.3 14.0-18.0 [facility]2017-09-18 19:37:00 Test Item Value Reference Range Interpretation Comments Troponin-I (test code no gt See_Comment [Auto mated message] The = Troponin-I) system which g enerated this result transmit caio reference range : <=0.40. The reference r kevin was not used to interpr et this result as aileen l/abnormal. [facility] [employer]2017-09-18 19:37:00 Test Item Value Reference Range Interpretation Comments CK MB (test code = CK MB) 7.4 0.5-3.6 [facility] [employer]2017-09-18 19:37:00 Test Item Value Reference Range Interpretation Comments Total CK (test code = Total CK) 215 12-191 [facility] [employer]2017-09-18 19:37:00 Test Item Value Reference Range Interpretation Comments CK-MB INDEX (test 3.4 See_Comment [Automate d message] The code = CK-MB INDEX) system w [facility] generated this result transmit caio reference range : <=2.5. The reference range was not used to interpr et this result as aileen l/abnormal. [employer]2017-09-18 19:37:00 Test Item Value Reference Range Interpretation Comments A/G Ratio (test code = A/G Ratio) 1.1 0.7-1.6 [facility] [employer]2017-09-18 19:37:00 Test Item Value Reference Range Interpretation Comments AGAP (test code = AGAP) 8.3 10.0-20.0 [employer] [id number] 19:37:00 Test Item Value Reference Range Interpretation Comments Globulin (test code = Globulin) 3.6 2.7-4.2 [facility] [employer]2017-09-18 19:37:00 Test Item Value Reference Range Interpretation Comments B/C Ratio (test code = B/C Ratio) 21 6-25 [facility] [employer]2017-09-18 19:37:00 Test Item Value Reference Range Interpretation Comments eGFR (test code = eGFR) 93 [facility] [employer] [id number] 19:37:00 Test Item Value Reference Range Interpretation Comments Bili Total (test code = Bili Total) 0.4 0.2-1.3 [facility]2017-09-18 19:37:00 Test Item Value Reference Range Interpretation Comments Alk Phos (test code = Alk Phos) 109 39-136 [facility]2017-09-18 19:37:00 Test Item Value Reference Range Interpretation Comments ASPARTATE TRANSAMINASE 31 See_Comment [Aut omated message] (test code = ASPARTATE The s ystem which TRANSAMINASE) generated this result transmitted ref erence range: <=37. Th e reference range was not used to interpr et this result as normal/abnormal . [facility]2017-09-18 19:37:00 Test Item Value Reference Range Interpretation Comments ALANINE AMINOTRANSFERASE 40 See_Comment [A utomated message] (test code = ALANINE The sys tem which AMINOTRANSFERASE) generated this result transmitted ref erence range: <=65. Th e reference range was not used to int erpret this result as normal/abnormal . [facility]2017-09-18 19:37:00 Test Item Value Reference Range Interpretation Comments Total Protein (test code = Total 7.4 6.4-8.4 Protein) [facility]2017-09-18 19:37:00 Test Item Value Reference Range Interpretation Comments Albumin Lvl (test code = Albumin Lvl) 3.8 3.5-5.0 [facility]2017-09-18 19:37:00 Test Item Value Reference Range Interpretation Comments Calcium Lvl (test code = Calcium Lvl) 8.9 8.5-10.5 [facility]2017-09-18 19:37:00 Test Item Value Reference Range Interpretation Comments CO2 (test code = CO2) 28 24-32 [facility]2017-09-18 19:37:00 Test Item Value Reference Range Interpretation Comments Sodium Lvl (test code = Sodium Lvl) 138 135-145 [facility]2017-09-18 19:37:00 Test Item Value Reference Range Interpretation Comments Potassium Lvl (test code = Potassium 4.3 3.5-5.1 Lvl) [facility]2017-09-18 19:37:00 Test Item Value Reference Range Interpretation Comments Chloride Lvl (test code = Chloride Lvl) 106 95-109 [facility]2017-09-18 19:37:00 Test Item Value Reference Range Interpretation Comments Creatinine Lvl (test code = Creatinine 0.80 0.50-1.40 Lvl) [facility]2017-09-18 19:37:00 Test Item Value Reference Range Interpretation Comments BUN (test code = BUN) 17 7-22 [facility]2017-09-18 19:37:00 Test Item Value Reference Range Interpretation Comments Glucose Lvl (test code = Glucose Lvl) 109 70-99 [facility] HospitalIlrgtaiFSUENEXURK5390-72-15 19:37:00 Test Item Value Reference Range Interpretation Comments Segs-Bands # (test code = Segs-Bands #) 6.5 1.5-8.1 [facility] HospitalAtmapetYOROIBQVGQ2302-48-48 19:37:00 Test Item Value Reference Range Interpretation Comments Monocytes # (test code 0.6 See_Comment [Aut omated message] The = Monocytes #) system which generated this result tra nsmitted reference range : <=0.8. The reference r kevin was not used to int erpret this result as normal/abnormal . [facility] HospitalVtdytcaEIXOHZVLKN5096-43-85 19:37:00 Test Item Value Reference Range Interpretation Comments Lymphocytes # (test code = Lymphocytes 1.6 1.0-5.5 #) [facility] HospitalRweqkxqBKDWXVFVFY7617-54-14 19:37:00 Test Item Value Reference Range Interpretation Comments Eosinophils # (test code 0.3 See_Comment [A utomated message] The = Eosinophils #) system whic h generated this result tra nsmitted reference range : <=0.5. The reference r kevin was not used to int erpret this result as normal/abnormal . [facility] HospitalLhfdlenAVJGGNBPND4785-54-21 19:37:00 Test Item Value Reference Range Interpretation Comments Basophils (test code = 0.6 See_Comment [Aut omated message] The Basophils) system which ge nerated this result tra nsmitted reference range : <=1.0. The reference r kevin was not used to int erpret this result as normal/abnormal . [facility] HospitalHebslkiFPLFSUBRLX6947-67-98 19:37:00 Test Item Value Reference Range Interpretation Comments Monocytes (test code = Monocytes) 6.1 2.0-12.0 [facility] HospitalWzfsoqgIYCBWZODFT9728-55-28 19:37:00 Test Item Value Reference Range Interpretation Comments Eosinophils (test code = 3.0 See_Comment [A utomated message] The Eosinophils) system which ge nerated this result tra nsmitted reference range : <=4.0. The reference r kevin was not used to int erpret this result as normal/abnormal . [facility] HospitalIdrbolvKHPNPFVWKK4770-47-00 19:37:00 Test Item Value Reference Range Interpretation Comments Basophils # (test code 0.1 See_Comment [Aut omated message] The = Basophils #) system which generated this result tra nsmitted reference range : <=0.2. The reference r kevin was not used to int erpret this result as normal/abnormal . [facility] HospitalYisfkjaXBNVHKXCCU4257-61-78 19:37:00 Test Item Value Reference Range Interpretation Comments Lymphocytes (test code = Lymphocytes) 18.2 20.0-40.0 [facility] HospitalWyvlxpaBZVYAJXFSL7869-92-88 19:37:00 Test Item Value Reference Range Interpretation Comments Segs (test code = Segs) 72.1 45.0-75.0 [facility] HospitalKstsoilOWZYJKHYOO9536-75-31 19:37:00 Test Item Value Reference Range Interpretation Comments aPTT (test code = aPTT) 31.4 s 22.9-35.8 [facility] HospitalIhdpmafTAWYOLRXEP4867-41-21 19:37:00 Test Item Value Reference Range Interpretation Comments PROTIME (test code = PROTIME) 12.6 s 12.0-14.7 [facility] HospitalTommwiaARCAVBCGWL2815-90-61 19:37:00 Test Item Value Reference Range Interpretation Comments INR (test code = INR) 0.92 0.85-1.17 [facility] HospitalAtfvxiuQUAFUWXAZM2369-48-95 19:37:00 Test Item Value Reference Range Interpretation Comments MCHC (test code = MCHC) 34.4 32.0-36.0 [facility] HospitalMmnkyszZDLJUORHBL4761-90-88 19:37:00 Test Item Value Reference Range Interpretation Comments MCH (test code = MCH) 31.1 pg 27.0-31.0 [facility] HospitalAydalfsNFLUPWXFNH9882-44-62 19:37:00 Test Item Value Reference Range Interpretation Comments WBC X 10x3 (test code = WBC X 10x3) 9.0 3.7-10.4 [facility] HospitalZuunhxrPJOJLRKRUT7734-08-00 19:37:00 Test Item Value Reference Range Interpretation Comments RBC X 10x6 (test code = RBC X 10x6) 5.24 4.70-6.10 [facility] HospitalHluezcaRBPBJUOFVC0028-63-93 19:37:00 Test Item Value Reference Range Interpretation Comments Platelet (test code = Platelet) 334 133-450 [facility] HospitalIwyidtbYPLQICEILK3110-48-31 19:37:00 Test Item Value Reference Range Interpretation Comments RDW (test code = RDW) 14.3 11.5-14.5 [facility] HospitalNfkompoWIMSUSCTFA1850-03-18 19:37:00 Test Item Value Reference Range Interpretation Comments MPV (test code = MPV) 7.3 7.4-10.4 [facility] HospitalNpsbgcbMFRGJPDABZ1751-37-88 19:37:00 Test Item Value Reference Range Interpretation Comments MCV (test code = MCV) 90.4 80.0-94.0 [facility] HospitalQkeunmeCYDWYNFGGR4303-28-80 19:37:00 Test Item Value Reference Range Interpretation Comments Hct (test code = Hct) 47.4 42.0-54.0 [facility] HospitalRtwrqhcNLBJLXSALX3485-22-87 19:37:00 Test Item Value Reference Range Interpretation Comments Hgb (test code = Hgb) 16.3 14.0-18.0 [facility] ESDYPKB9674-76-78 19:37:00 Test Item Value Reference Range Interpretation Comments Troponin-I (test code no gt See_Comment [Auto mated message] The = Troponin-I) system which g enerated this result transmit caio reference range : <=0.40. The reference r kevin was not used to interpr et this result as aileen l/abnormal. [facility] QVRAIAG6320-50-32 19:37:00 Test Item Value Reference Range Interpretation Comments CK MB (test code = CK MB) 7.4 0.5-3.6 [facility] KDUNHBG3973-95-17 19:37:00 Test Item Value Reference Range Interpretation Comments Total CK (test code = Total CK) 215 12-191 [facility] CACCTSA6773-77-30 19:37:00 Test Item Value Reference Range Interpretation Comments CK-MB INDEX (test 3.4 See_Comment [Automate d message] The code = CK-MB INDEX) system w [facility] generated this result transmit caio reference range : <=2.5. The reference range was not used to interpr et this result as aileen l/abnormal. [facility]2017-09-18 19:37:00 Test Item Value Reference Range Interpretation Comments A/G Ratio (test code = A/G Ratio) 1.1 0.7-1.6 [facility]2017-09-18 19:37:00 Test Item Value Reference Range Interpretation Comments AGAP (test code = AGAP) 8.3 10.0-20.0 [facility]2017-09-18 19:37:00 Test Item Value Reference Range Interpretation Comments Globulin (test code = Globulin) 3.6 2.7-4.2 [facility]2017-09-18 19:37:00 Test Item Value Reference Range Interpretation Comments B/C Ratio (test code = B/C Ratio) 21 6-25 [place] 960747-09-18 19:37:00 Test Item Value Reference Range Interpretation Comments eGFR (test code = eGFR) 93 [facility]2017-09-18 19:37:00 Test Item Value Reference Range Interpretation Comments Bili Total (test code = Bili Total) 0.4 0.2-1.3 [facility]2017-09-18 19:37:00 Test Item Value Reference Range Interpretation Comments Alk Phos (test code = Alk Phos) 109 39-136 [facility]2017-09-18 19:37:00 Test Item Value Reference Range Interpretation Comments ASPARTATE TRANSAMINASE 31 See_Comment [Aut omated message] (test code = ASPARTATE The s ystem which TRANSAMINASE) generated this result transmitted ref erence range: <=37. Th e reference range was not used to interpr et this result as normal/abnormal . [facility]2017-09-18 19:37:00 Test Item Value Reference Range Interpretation Comments ALANINE AMINOTRANSFERASE 40 See_Comment [A utomated message] (test code = ALANINE The sys tem which AMINOTRANSFERASE) generated this result transmitted ref erence range: <=65. Th e reference range was not used to int erpret this result as normal/abnormal . [facility]2017-09-18 19:37:00 Test Item Value Reference Range Interpretation Comments Total Protein (test code = Total 7.4 6.4-8.4 Protein) [facility]2017-09-18 19:37:00 Test Item Value Reference Range Interpretation Comments Albumin Lvl (test code = Albumin Lvl) 3.8 3.5-5.0 [facility]2017-09-18 19:37:00 Test Item Value Reference Range Interpretation Comments Calcium Lvl (test code = Calcium Lvl) 8.9 8.5-10.5 [facility]2017-09-18 19:37:00 Test Item Value Reference Range Interpretation Comments CO2 (test code = CO2) 28 24-32 [facility]2017-09-18 19:37:00 Test Item Value Reference Range Interpretation Comments Sodium Lvl (test code = Sodium Lvl) 138 135-145 [facility]2017-09-18 19:37:00 Test Item Value Reference Range Interpretation Comments Potassium Lvl (test code = Potassium 4.3 3.5-5.1 Lvl) [facility]2017-09-18 19:37:00 Test Item Value Reference Range Interpretation Comments Chloride Lvl (test code = Chloride Lvl) 106 95-109 [facility]2017-09-18 19:37:00 Test Item Value Reference Range Interpretation Comments Creatinine Lvl (test code = Creatinine 0.80 0.50-1.40 Lvl) [facility]2017-09-18 19:37:00 Test Item Value Reference Range Interpretation Comments BUN (test code = BUN) 17 7-22 [facility]2017-09-18 19:37:00 Test Item Value Reference Range Interpretation Comments Glucose Lvl (test code = Glucose Lvl) 109 70-99 [facility] HospitalLoemryaKKBIXYNRLH9883-10-29 19:37:00 Test Item Value Reference Range Interpretation Comments Segs-Bands # (test code = Segs-Bands #) 6.5 1.5-8.1 [facility] HospitalBpzwklaYPMLJKRLHB3189-25-45 19:37:00 Test Item Value Reference Range Interpretation Comments Monocytes # (test code 0.6 See_Comment [Aut omated message] The = Monocytes #) system which generated this result tra nsmitted reference range : <=0.8. The reference r kevin was not used to int erpret this result as normal/abnormal . [facility] HospitalBkfqrczLWMAGOVAKO1521-35-52 19:37:00 Test Item Value Reference Range Interpretation Comments Lymphocytes # (test code = Lymphocytes 1.6 1.0-5.5 #) [facility] HospitalIpztiqoUIUMJGFNRE6743-63-87 19:37:00 Test Item Value Reference Range Interpretation Comments Eosinophils # (test code 0.3 See_Comment [A utomated message] The = Eosinophils #) system whic h generated this result tra nsmitted reference range : <=0.5. The reference r kevin was not used to int erpret this result as normal/abnormal . [facility] HospitalQbdyimyHOSXAHDLSJ0657-28-79 19:37:00 Test Item Value Reference Range Interpretation Comments Basophils (test code = 0.6 See_Comment [Aut omated message] The Basophils) system which ge nerated this result tra nsmitted reference range : <=1.0. The reference r kevin was not used to int erpret this result as normal/abnormal . [id number] 19:37:00 Test Item Value Reference Range Interpretation Comments Monocytes (test code = Monocytes) 6.1 2.0-12.0 [id number] 19:37:00 Test Item Value Reference Range Interpretation Comments Eosinophils (test code = 3.0 See_Comment [A utomated message] The Eosinophils) system which ge nerated this result tra nsmitted reference range : <=4.0. The reference r kevin was not used to int erpret this result as normal/abnormal . [id number] 19:37:00 Test Item Value Reference Range Interpretation Comments Basophils # (test code 0.1 See_Comment [Aut omated message] The = Basophils #) system which generated this result tra nsmitted reference range : <=0.2. The reference r kevin was not used to int erpret this result as normal/abnormal . [facility] H[id number] 19:37:00 Test Item Value Reference Range Interpretation Comments Lymphocytes (test code = Lymphocytes) 18.2 20.0-40.0 [facility] Ho[id number] 19:37:00 Test Item Value Reference Range Interpretation Comments Segs (test code = Segs) 72.1 45.0-75.0 [facility] H[id number] 19:37:00 Test Item Value Reference Range Interpretation Comments aPTT (test code = aPTT) 31.4 s 22.9-35.8 [facility] H[id number] 19:37:00 Test Item Value Reference Range Interpretation Comments PROTIME (test code = PROTIME) 12.6 s 12.0-14.7 [facility] H[id number] 19:37:00 Test Item Value Reference Range Interpretation Comments INR (test code = INR) 0.92 0.85-1.17 [facility] H[id number] 19:37:00 Test Item Value Reference Range Interpretation Comments MCHC (test code = MCHC) 34.4 32.0-36.0 [facility] H[id number] 19:37:00 Test Item Value Reference Range Interpretation Comments MCH (test code = MCH) 31.1 pg 27.0-31.0 [facility] H[id number] 19:37:00 Test Item Value Reference Range Interpretation Comments WBC X 10x3 (test code = WBC X 10x3) 9.0 3.7-10.4 [facility] Ho[id number] 19:37:00 Test Item Value Reference Range Interpretation Comments RBC X 10x6 (test code = RBC X 10x6) 5.24 4.70-6.10 [facility] Hospit[id number] 19:37:00 Test Item Value Reference Range Interpretation Comments Platelet (test code = Platelet) 334 133-450 [facility] H[id number] 19:37:00 Test Item Value Reference Range Interpretation Comments RDW (test code = RDW) 14.3 11.5-14.5 [facility] H[id number] 19:37:00 Test Item Value Reference Range Interpretation Comments MPV (test code = MPV) 7.3 7.4-10.4 [facility] H[id number] 19:37:00 Test Item Value Reference Range Interpretation Comments MCV (test code = MCV) 90.4 80.0-94.0 [facility] H[id number] 19:37:00 Test Item Value Reference Range Interpretation Comments Hct (test code = Hct) 47.4 42.0-54.0 [facility] Hospit[id number] 19:37:00 Test Item Value Reference Range Interpretation Comments Hgb (test code = Hgb) 16.3 14.0-18.0 [facility]"
[2022-08-09 10:26] LABS: Absolute Lymphocytes (CBC) 0.4 K/uL (0.7-4.9); Hematocrit 45.4 % (39.6-49.0); Lymphocytes % 2.1 % (15.3-44.8); MCV 96.5 fL (80-100); MPV 7.5 fL (7.6-11.3)
[2022-08-09 10:32] LABS: Protime INR 3.15
[2022-08-09] MEDS ORDERED: MORPHINE 4 MG/ML SYR ONE ×2 (10:40→12:38)
[2022-08-09 10:47] LABS: Albumin 3.4 g/dL (3.4-5.0); Bilirubin Direct 0.3 mg/dL (0-0.2); Bilirubin Total 0.9 mg/dL (0.2-1.0); Potassium 4.1 mmol/L (3.5-5.1); Protein, Total 7.1 g/dL (6.4-8.2)
[2022-08-09 11:06] LABS: Urine Blood 3+ (Negative); Urine Glucose Negative (Negative); Urine Protein 3+ (Negative)
--- NOTE | 2022-08-09 11:13 | RAD REPORT ---
EXAM DESCRIPTION: RAD - Chest Single View - 08/09/2022 11:01 am CLINICAL HISTORY: SOB COMPARISON: Chest Single View dated 10/27/2020 FINDINGS: Lines: None. Lungs: Linear opacities are present Pleural: No significant pleural effusions or pneumothorax. Cardiac: The heart size is within normal limits. Mediastinum: Within normal limits. Bones: No acute fractures. Other: Question ectatic or tortuous ascending thoracic aorta. IMPRESSION: Minimal linear basilar opacities likely reflecting atelectasis. No definite acute proces s.
[2022-08-09 11:23] LABS: Urine Bacteria 20-50 /HPF (<20); Urine Mucus 3+ /HPF (None Seen); Urine RBC >50 /HPF (None Seen)
[2022-08-09 11:25] LABS: Blood Morphology Comment NOT SEEN (NOT SEEN); Platelet Estimate ADEQ; White Blood Cell Scan OK (OK)
--- NOTE | 2022-08-09 11:33 | RAD REPORT ---
EXAM DESCRIPTION: US - Extremity Venous Uni Ltd - 08/09/2022 11:25 am CLINICAL HISTORY: Swelling COMPARISON: 10/27/2020 TECHNIQUE: Real-time sonographic evaluation of the right lower extremity deep venous system was perf ormed. FINDINGS: Normal compressibility, flow augmentation, phasic flow and spontaneous flow is identified in the right lower extremity deep venous system. No intraluminal filling defects seen. IMPRESSION: No DVT in the right lower extremity.
--- NOTE | 2022-08-09 11:35 | RAD REPORT ---
EXAM DESCRIPTION: US - Lower Extremity Artery Uni Ltd - 08/09/2022 11:25 am CLINICAL HISTORY: Leg swelling COMPARISON: None FINDINGS: Color Doppler, grayscale, and spectral analysis was performed. The common femoral, superficial femoral and popliteal arteries in the right lower extremity demonstra te triphasic waveforms The posterior tibial and dorsalis pedis arteries demonstrate triphasic waveforms in the right lower e xtremity. IMPRESSION: No flow limiting arterial stenosis in the right lower extremity.
[2022-08-09 11:41] LABS: SARS-COV-2 RT PCR NEGATIVE (NEGATIVE)
[2022-08-09] MEDS ORDERED: NA CHLORIDE 0.9% 3,000 ML ONE (11:42)
[2022-08-09] MEDS ORDERED: VANCOMYCIN 1 GM/VIAL ONE (12:38)
[2022-08-09] MEDS ORDERED: NA CHLORIDE 0.9% 250 ML ONE (12:38)
[2022-08-09] MEDS ORDERED: Levofloxacin 750mg IV 750 MG/150 ML BAG IV ONE (12:39)
--- NOTE | 2022-08-09 13:22 | RAD REPORT ---
EXAM DESCRIPTION: CT - Chest For Pe Angio - 08/09/2022 12:52 pm CLINICAL HISTORY: sob COMPARISON: Same-day chest x-ray TECHNIQUE: Dynamically enhanced axial 3 mm thick images of the chest were obtained during administra tion of <100> mL Isovue 370 IV contrast. Coronal and oblique reconstruction images were generated and reviewed. Exam utilizes a protocol for optimal evaluation of pulmonary arterial tree. Maximum intensity projections 3D imaging was utilized All CT scans are performed using dose optimization technique as appropriate and may include automated exposure control or mA/KV adjustment according to patient size. FINDINGS: Chest Wall: No suspicious thyroid nodules or pathologic lymphadenopathy. Lungs: Subsegmental scarring versus atelectasis in the lingula. Limited by motion. Pleura: No significant effusions or pneumothorax. Mediastinum/zo: No pathologic lymphadenopathy. Pulmonary arteries/Aorta: No central pulmonary embolus. The segmental and subsegmental pulmonary karmen johanna not well evaluated due to motion. No aortic aneurysm. Heart: No significant pericardial effusion. Normal heart size. Upper abdomen: No acute abnormality.Low-density lesion left hepatic lobe measuring 10 millimeters ind eterminate. Hepatic steatosis. Bones: No acute abnormality. IMPRESSION: No central pulmonary embolus. Limited evaluation due to motion artifact. Strictly speaki ng, a clinically significant pulmonary embolus cannot be excluded. A short-term follow-up repeat CT c ould be performed if the patient's dyspnea improves and alllows a more adequate exam. A v/q scan is a lso an option depending on clinical suspicion. Hepatic steatosis. 10 mm low-density lesion left hepatic lobe. Statistically, this is benign. In the absence of priors, nonemergent hepatic protocol MRI is suggested for confirmation. Ultrasound may be of limited utility given the degree of hepatic steatosis.
--- NOTE | 2022-08-09 14:35 | EDPHYS ---
Physician Documentation [facility] Name: Oswaldo Chou Age: 71 yrs Sex: Male : 1950 Arrival Date: 08/09/2022 Time: 09:37 Bed 15 Private MD: ED Physician Olvin Goldberg HPI: 08/09 09:49 This 71 yrs old Male presents to ER via EMS with complaints of Shortness Of Breath. [facility] 09:49 The patient has shortness of breath at rest. Onset: The symptoms/episode began/occurred jm gradually, today. . 09:49 This is a 71-year-old male with history of atrial fibrillation the presents emerged [facility] part with complaints of progressively worsening pain to the right lower extremity. Patient was seen at [place] [facility], given a pressure wrap. Denies any imaging studies. Patient had a slight cough yesterday as well. Patient comes to the ED today with increased shortness of breath and increased pain to the right lower extremity. Family states they noticed blisters appear about a week ago. Patient has had numbness in that extremity since a spinal procedure performed approximately 3 years ago. Denies any injury to the extremity, patient normally is in a wheelchair.. Historical: - Allergies: 11:51 No Known Allergies; kc6 - Home Meds: 11:51 Plavix 75 mg Oral tab [Active]; Xarelto oral [Active]; kc6 - PMHx: 11:51 Atrial fibrillation; kc6 - PSHx: 11:51 stents to the DONN lower legs; back surgery; kc6 - Immunization history:: Client reports receiving the 2nd dose of the Covid vaccine, Flu vaccine is not up to date. - Social history:: Smoking status: unknown. ROS: 09:49 Constitutional: Positive for body aches. jmm 09:49 Respiratory: Positive for shortness of breath. 09:49 All other systems are negative. Exam: 09:49 Constitutional: This is a well developed, well nourished patient who is awake, alert, jmm and in no acute distress. Head/Face: atraumatic. Eyes: EOMI, no conjunctival erythema appreciated ENT: Moist Mucus Membranes Neck: Trachea midline, Supple Chest/axilla: Normal chest wall appearance and motion. Cardiovascular: Regular rate and rhythm. No edema appreciated Respiratory: Normal respirations, no respiratory distress appreciated Abdomen/GI: Non distended Back: Normal ROM Skin: General appearance color normal 09:49 Musculoskeletal/extremity: ROM: intact in all extremities. 09:49 Skin: Appearance: Color: normal in color. 09:49 Neuro: Orientation: is normal, Mentation: is normal, Memory: is normal. 09:49 Psych: Behavior/mood is pleasant, cooperative. 11:38 ECG was reviewed by the Attending Physician. [facility] Vital Signs: 09:48 BP 126 / 90; Pulse 131; Resp 25 S; Pulse Ox 28% on 2 lpm NC; Weight 104.33 kg (R); kc6 Height 5 ft. 7 in. (170.18 cm) (R); Pain 8/10; 12:00 BP 104 / 67; Pulse 108; Resp 21 S; Pulse Ox 93% on 2 lpm NC; kc6 13:00 BP 108 / 63; Pulse 98; Resp 23 S; Pulse Ox 100% on 2 lpm NC; kc6 15:00 BP 100 / 68; Pulse 103; Resp 20 S; Pulse Ox 95% on 3 lpm NC; Pain 10/10; kc6 15:29 Weight 104.33 kg (R); Height 5 ft. 7 in. (170.18 cm) (R); kc6 15:48 BP 100 / 70; Pulse 108; Resp 23 S; Pulse Ox 95% on R/A; kc6 16:30 BP 93 / 51; Pulse 105; Resp 21; Pulse Ox 99% on 2 lpm NC; kc6 17:30 BP 97 / 75; Pulse 149; Resp 20 S; Pulse Ox 95% on 2 lpm NC; kc6 19:28 BP 104 / 68; Pulse 154; Resp 20; Pulse Ox 96% on 3 lpm NC; Pain 0/10; ke1 20:04 BP 95 / 79; Pulse 156; Resp 17; Pulse Ox 95% on 3 lpm NC; Pain 0/10; ke1 20:30 BP 89 / 52; Pulse 90; Resp 18; Pulse Ox 95% on 3 lpm NC; ke1 21:08 BP 100 / 76; Pulse 89; Resp 20; Pulse Ox 97% on 3 lpm NC; Pain 0/10; ke1 15:29 Body Mass Index 36.02 (104.33 kg, 170.18 cm) [facility] MDM: 09:49 Patient medically screened. [facility] 14:15 Data reviewed: vital signs, nurses notes. Consideration of Admission/Observation. I [facility] considered the following discharge prescriptions or medication management in the emergency department Medications were administered in the Emergency Department. See MAR. Historians other than the Patient: Daughter/Son: Daughter. Care significantly affected by the following chronic conditions: Atrial fibrillation. Counseling: I had a detailed discussion with the patient and/or guardian regarding: the historical points, exam findings, and any diagnostic results supporting the discharge/admit diagnosis, lab results, radiology results, the need for further work-up and treatment in the hospital. Refusal of service: The patient/guardian displays adequate decision making capability and despite a detailed discussion of alternatives, benefits, risks, and consequences refuses: Admission to the hospital for further work-up and treatment. ED course: . 15:21 ED course: a) source cellulitis b) HR > 90 and Elevated WBC C) Elevated Lactate . [facility] 08/09 09:51 Order name: Basic Metabolic Panel; Complete Time: 10:49 [facility] 08/09 09:51 Order name: CBC with Diff; Complete Time: 11:26 [facility] 08/09 09:51 Order name: LFT's; Complete Time: 10:49 [facility] 08/09 09:51 Order name: Magnesium; Complete Time: 10:49 [facility] 08/09 09:51 Order name: NT PRO-BNP; Complete Time: 10:49 [facility] 08/09 09:51 Order name: PT-INR; Complete Time: 10:39 [facility] 08/09 09:51 Order name: Troponin HS; Complete Time: 10:49 [facility] 08/09 09:51 Order name: COVID-19/FLU A+B; Complete Time: 11:42 [facility] 08/09 09:53 Order name: Urine Culture [facility] 08/09 10:01 Order name: Lactate w/ 2H reflex if indic.; Complete Time: 10:45 [facility] 08/09 10:01 Order name: Blood Culture Adult (2) [facility] 08/09 11:06 Order name: Urine Microscopic Only; Complete Time: 11:26 [facility] 08/09 11:06 Order name: Urine Dipstick-Ancillary; Complete Time: 11:06 [facility] 08/09 11:26 Order name: CBC Smear Scan; Complete Time: 11:26 [facility] 08/09 09:51 Order name: XRAY Chest (1 view); Complete Time: 11:15 [facility] 08/09 09:52 Order name: US Extremity Venous Unilateral Ltd; Complete Time: 11:34 [facility] 08/09 09:52 Order name: US LE Artery Uni Ltd; Complete Time: 11:36 [facility] 08/09 11:15 Order name: CT Chest For PE Angio [facility] 08/09 11:19 Order name: Chest For Pe Angio; Complete Time: 13:24 [facility] 08/09 15:01 Order name: Urinalysis [facility] 08/09 15:01 Order name: Basic Metabolic Panel [facility] 08/09 15:01 Order name: Basic Metabolic Panel [facility] 08/09 15:01 Order name: Basic Metabolic Panel [facility] 08/09 15:01 Order name: Basic Metabolic Panel MS 08/09 15:01 Order name: CBC with Automated Diff [facility] 08/09 15:01 Order name: CBC with Automated Diff [facility] 08/09 15:01 Order name: CBC with Automated Diff [facility] 08/09 15:01 Order name: CBC with Automated Diff [facility] 08/09 15:04 Order name: Vancomycin Peak [facility] 08/09 15:26 Order name: Lactate Sepsis 2 HR Follow-up; Complete Time: 15:26 [facility] 08/09 09:51 Order name: EKG; Complete Time: 09:52 [facility] 08/09 09:51 Order name: Cardiac monitoring; Complete Time: 10:04 [facility] 08/09 09:51 Order name: EKG - Nurse/Tech; Complete Time: 11:38 [facility] 08/09 09:51 Order name: IV Saline Lock; Complete Time: 10:31 [facility] 08/09 09:51 Order name: Labs collected and sent; Complete Time: 10:31 [facility] 08/09 09:51 Order name: O2 Per Protocol; Complete Time: 10:04 [facility] 08/09 09:51 Order name: O2 Sat Monitoring; Complete Time: 10:04 [facility] 08/09 09:53 Order name: Urine Dipstick-Ancillary (obtain specimen); Complete Time: 11:07 [facility] 08/09 15:01 Order name: Regular; Complete Time: 20:16 [facility] 08/09 17:07 Order name: EKG - Nurse/Tech; Complete Time: 17:30 jmm EC:38 Rate is 113 beats/min. Rhythm is regular. [place] interval is normal. QRS interval is jmm normal. QT interval is normal. No Q waves. T waves are Normal. No ST changes noted. Reviewed by me. Administered Medications: 09:51 CANCELLED (not needed at this timee): SOLU-Medrol (methylPrednisoLONE) 125 mg IVP once jmm 10:40 Drug: morphine 4 mg Route: IVP; Infused Over: 4 mins; Site: right antecubital; kc6 11:40 Follow up: Response: No adverse reaction; Pain is unchanged, physician notified; RASS: kc6 Alert and Calm (0) 11:50 Drug: NS 0.9% (30 ml/kg) 30 ml/kg Route: IV; Rate: bolus; Site: right wrist; kc6 12:50 Follow up: Response: No adverse reaction; IV Status: Completed infusion; IV Intake: kc6 3000ml 13:08 Drug: LevaQUIN (levofloxacin) 750 mg Route: IVPB; Site: right antecubital; kc6 13:10 Drug: morphine 4 mg Route: IVP; Infused Over: 4 mins; Site: right wrist; kc6 14:32 Drug: Ketorolac 15 mg Route: IVP; Site: right antecubital; kc6 15:16 Drug: vancoMYCIN 1 grams Route: IVPB; Infused Over: 2 hrs; Site: right antecubital; kc6 15:16 Drug: Dilaudid (HYDROmorphone) 1 mg Route: IVP; Site: right antecubital; kc6 17:44 Drug: fentaNYL (PF) 50 mcg Route: IVP; Site: right antecubital; kc6 18:37 Follow up: Response: No adverse reaction; Pain is decreased; RASS: Alert and Calm (0) kc6 18:43 Drug: Magnesium Sulfate 1 grams Route: IVPB; Infused Over: 1 hrs; Site: right kc6 antecubital; 18:57 CANCELLED (Other Intervention Used): Digoxin 0.5 mg IVP once jl7 19:25 Drug: amiodarone 900 mg, D5W 500 ml Route: IVPB; Rate: 1 mg/min; Site: right wrist; ke1 20:15 Drug: Digoxin 0.5 mg Route: IVP; Site: right antecubital; ke1 20:21 Drug: NS 0.9% 500 ml Route: IV; Rate: bolus; Site: right antecubital; ke1 Disposition: 08/10 09:14 Co-signature as Attending Physician, Olvin Goldberg MD I agree with the assessment and rn plan of care. Disposition Summary: 08/09/22 14:34 Hospitalization Ordered Hospitalization Status: Inpatient Admission [facility] Provider: Alfonso Ramírez Condition: Stable [facility] Problem: new [facility] Symptoms: have improved [facility] Bed/Room Type: [facility] Location: Intensive Care Unit(08/09/22 21:17) Room Assignment: 2-(08/09/22 21:17) cg Diagnosis - Cellulitis of the right lower extremity [facility] - Severe sepsis jm - Acute bronchitis [facility] Forms: - Medication Reconciliation Form [facility] - SBAR form [facility] Signatures: Dispatcher [employer] Ijeoma Alberts RN RN Bret Myles PA PA [facility] Olvin Goldberg MD MD rn Dean Phelps, CONCRETE SAW OPERATOR-C CONCRETE SAW OPERATOR-Cla1 Kathy Han RN RN cg Leal, Jahala, RN RN jl7 Hayde Herman RN RN ke1 Brenda Quiroga RN RN kc6 Corrections: (The following items were deleted from the chart) 08/09 09:51 09:51 SOLU-Medrol (methylPrednisoLONE) 125 mg IVP once ordered. [facility] 14:17 09:49 This is a 71-year-old female with history of atrial fibrillation the presents [facility] emerged department with complaints of shortness of breath and weakness which began this morning. Patient states she is began a taper of her prednisone. Denies any fever or chills. Patient is currently taking antibiotics for a UTI and pneumonia. Denies chest pain. Family is concerned the patient may be dehydrated. Patient has had decreased oral intake. [facility] 14:19 14:15 ED course: Patient was positive for COVID. Labs concerning for dehydration due to [facility] prerenal azotemia. 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 Patient and family otherwise given very strict return precautions. They understood and agrees plan of care. [facility] 16:13 14:34 [facility] dw 18:57 18:56 Digoxin 0.5 mg IVP once ordered. jl7 jl7 19:01 16:13 [facility] cg : 14:34 Telemetry/MedSurg (Inpatient) [facility] 19:01 [facility]
--- NOTE | 2022-08-09 14:35 | ER ---
Nurse's Notes [facility] Name: Oswaldo Chou Age: 71 yrs Sex: Male : 1950 Arrival Date: 08/09/2022 Time: 09:37 Bed 15 Private MD: Diagnosis: Cellulitis of the right lower extremity;Severe sepsis;Acute bronchitis Presentation: 08/09 09:48 Chief complaint: EMS states: client woke up this morning with shortness of breath and kc6 right leg pain. albuterol given en route. Coronavirus screen: Vaccine status: Patient reports receiving the 2nd dose of the covid vaccine. At this time, the client does not indicate any symptoms associated with coronavirus-19. Ebola Screen: No symptoms or risks identified at this time. Initial Sepsis Screen: Does the patient meet any 2 criteria? No. Patient's initial sepsis screen is negative. Does the patient have a suspected source of infection? No. Patient's initial sepsis screen is negative. Risk Assessment: Do you want to hurt yourself or someone else? Patient reports no desire to harm self or others. Onset of symptoms was August 09, 2022. 09:48 Method Of Arrival: EMS: [facility] 6 09:48 Acuity: REINA 3 kc6 Triage Assessment: 09:48 General: Appears in no apparent distress. uncomfortable, obese, Behavior is kc6 cooperative, appropriate for age, restless. Pain: Complains of pain in right leg Pain does not radiate. Pain currently is 10 out of 10 on a pain scale. Quality of pain is described as sharp, shooting, Pain began suddenly, Is continuous, Alleviated by nothing. Aggravated by increased activity, weight bearing, Noted to be restless, Also complains of no other associated symptoms. EENT: No signs and/or symptoms were reported regarding the EENT system. Neuro: [place] Agitation-Sedation Scale (RASS): +1 Restless Level of Consciousness is awake, alert, obeys commands, Oriented to person, place, time, situation, Appropriate for age. Cardiovascular: Heart tones S1 S2 present Capillary refill < 3 seconds. Respiratory: Reports shortness of breath Airway is patent Trachea midline Respiratory effort is even, labored, Respiratory pattern is symmetrical, tachypnea Breath sounds with wheezes bilaterally. Onset: The symptoms/episode began/occurred yesterday, the patient has moderate shortness of breath. GI: No signs and/or symptoms were reported involving the gastrointestinal system. : No signs and/or symptoms were reported regarding the genitourinary system. Derm: No signs and/or symptoms reported regarding the dermatologic system. Skin is intact, Skin is pink, warm \T\ dry. Musculoskeletal: No signs and/or symptoms reported regarding the musculoskeletal system. Circulation, motion, and sensation intact. Capillary refill < 3 seconds, Range of motion: intact in all extremities. Historical: - Allergies: 11:51 No Known Allergies; kc6 - Home Meds: 11:51 Plavix 75 mg Oral tab [Active]; Xarelto oral [Active]; kc6 - PMHx: 11:51 Atrial fibrillation; kc6 - PSHx: 11:51 stents to the DONN lower legs; back surgery; kc6 - Immunization history:: Client reports receiving the 2nd dose of the Covid vaccine, Flu vaccine is not up to date. - Social history:: Smoking status: unknown. Screenin:48 [facility] ED Fall Risk Assessment (Adult) History of falling in the last 3 months, kc6 including since admission No falls in past 3 months (0 pts) Confusion or Disorientation No (0 pts) Intoxicated or Sedated No (0 pts) Impaired Gait No (0 pts) Mobility Assist Device Used No (0 pt) Altered Elimination No (0 pt) Score/Fall Risk Level 0 - 2 = Low Risk Oriented to surroundings, Maintained a safe environment, Educated pt \T\ family on fall prevention, incl call for assistance when getting out of bed, Assessed \T\ reinforced patient's understanding of fall precautions, Hourly rounding (assess needs \T\ fall precautionary measures) done. Abuse screen: Denies threats or abuse. Denies injuries from another. Nutritional screening: No deficits noted. Tuberculosis screening: No symptoms or risk factors identified. Assessment: 09:48 Cardiovascular: Rhythm is sinus tachycardia. kc6 10:48 Reassessment: Patient appears in no apparent distress at this time. No changes from kc6 previously documented assessment. Patient and/or family updated on plan of care and expected duration. Pain level reassessed. Patient is alert, oriented x 3, equal unlabored respirations, skin warm/dry/pink. 11:48 Reassessment: Patient appears in no apparent distress at this time. No changes from kc6 previously documented assessment. Patient and/or family updated on plan of care and expected duration. Pain level reassessed. Patient is alert, oriented x 3, equal unlabored respirations, skin warm/dry/pink. 12:48 Reassessment: Patient appears in no apparent distress at this time. No changes from kc6 previously documented assessment. Patient and/or family updated on plan of care and expected duration. Pain level reassessed. Patient is alert, oriented x 3, equal unlabored respirations, skin warm/dry/pink. 13:48 Reassessment: Patient appears in no apparent distress at this time. No changes from kc6 previously documented assessment. Patient and/or family updated on plan of care and expected duration. Pain level reassessed. Patient is alert, oriented x 3, equal unlabored respirations, skin warm/dry/pink. 14:48 Reassessment: Patient appears in no apparent distress at this time. No changes from kc6 previously documented assessment. Patient and/or family updated on plan of care and expected duration. Pain level reassessed. Patient is alert, oriented x 3, equal unlabored respirations, skin warm/dry/pink. 15:48 Reassessment: Patient appears in no apparent distress at this time. No changes from kc6 previously documented assessment. Patient and/or family updated on plan of care and expected duration. Pain level reassessed. Patient is alert, oriented x 3, equal unlabored respirations, skin warm/dry/pink. 16:48 Reassessment: Patient appears in no apparent distress at this time. No changes from kc6 previously documented assessment. Patient and/or family updated on plan of care and expected duration. Pain level reassessed. Patient is alert, oriented x 3, equal unlabored respirations, skin warm/dry/pink. 17:00 Reassessment: HR 150bpm, BP 103/78. client denies being lightheaded or dizzy, JIMBO Queen kc6 notified. verbal order to do an ECG. 19:28 Reassessment: Patient appears in no apparent distress at this time. Patient is alert, ke1 oriented x 3, equal unlabored respirations, skin warm/dry/pink. Patient denies pain at this time. Cardiovascular: Rhythm is atrial fibrillation with rapid ventricular response. 20:22 Reassessment: Patient is alert, oriented x 3, equal unlabored respirations, skin ke1 warm/dry/pink. 21:11 Cardiovascular: Rhythm is sinus rhythm. ke1 21:18 Reassessment: Patient appears in no apparent distress at this time. No changes from ke1 previously documented assessment. Vital Signs: 09:48 BP 126 / 90; Pulse 131; Resp 25 S; Pulse Ox 28% on 2 lpm NC; Weight 104.33 kg (R); kc6 Height 5 ft. 7 in. (170.18 cm) (R); Pain 8/10; 12:00 BP 104 / 67; Pulse 108; Resp 21 S; Pulse Ox 93% on 2 lpm NC; kc6 13:00 BP 108 / 63; Pulse 98; Resp 23 S; Pulse Ox 100% on 2 lpm NC; kc6 15:00 BP 100 / 68; Pulse 103; Resp 20 S; Pulse Ox 95% on 3 lpm NC; Pain 10/10; kc6 15:29 Weight 104.33 kg (R); Height 5 ft. 7 in. (170.18 cm) (R); kc6 15:48 BP 100 / 70; Pulse 108; Resp 23 S; Pulse Ox 95% on R/A; kc6 16:30 BP 93 / 51; Pulse 105; Resp 21; Pulse Ox 99% on 2 lpm NC; kc6 17:30 BP 97 / 75; Pulse 149; Resp 20 S; Pulse Ox 95% on 2 lpm NC; kc6 19:28 BP 104 / 68; Pulse 154; Resp 20; Pulse Ox 96% on 3 lpm NC; Pain 0/10; ke1 20:04 BP 95 / 79; Pulse 156; Resp 17; Pulse Ox 95% on 3 lpm NC; Pain 0/10; ke1 20:30 BP 89 / 52; Pulse 90; Resp 18; Pulse Ox 95% on 3 lpm NC; ke1 21:08 BP 100 / 76; Pulse 89; Resp 20; Pulse Ox 97% on 3 lpm NC; Pain 0/10; ke1 15:29 Body Mass Index 36.02 (104.33 kg, 170.18 cm) [facility] ED Course: 09:37 Patient arrived in ED. as 09:47 Bret Hancock PA is PHCP. [facility] 09:47 Olvin Goldberg MD is Attending Physician. [facility] 09:48 Quiroga, Brenda, RN is Primary Nurse. kc6 09:54 Triage completed. kc6 11:03 XRAY Chest (1 view) In Process Unspecified. EDMS 11:27 US Extremity Venous Unilateral Ltd In Process Unspecified. EDMS 11:27 US LE Artery Uni Ltd In Process Unspecified. EDMS 11:45 Inserted saline lock: 22 gauge in right wrist, using aseptic technique. vg1 11:45 First set of blood cultures drawn Right wrist. vg1 11:54 Arm band placed on. kc6 11:55 Patient has correct armband on for positive identification. Bed in low position. Call kc6 light in reach. Side rails up X2. Adult w/ patient. 12:53 Chest For Pe Angio In Process Unspecified. EDMS 14:33 Alfonso Ramírez MD is Hospitalizing Provider. [facility] 19:51 Primary Nurse role handed off by Brenda Quiroga, INGA 19:51 Hayde Herman RN is Primary Nurse. ke1 Administered Medications: 09:51 CANCELLED (not needed at this timee): SOLU-Medrol (methylPrednisoLONE) 125 mg IVP once jmm 10:40 Drug: morphine 4 mg Route: IVP; Infused Over: 4 mins; Site: right antecubital; kc6 11:40 Follow up: Response: No adverse reaction; Pain is unchanged, physician notified; RASS: kc6 Alert and Calm (0) 11:50 Drug: NS 0.9% (30 ml/kg) 30 ml/kg Route: IV; Rate: bolus; Site: right wrist; kc6 12:50 Follow up: Response: No adverse reaction; IV Status: Completed infusion; IV Intake: kc6 3000ml 13:08 Drug: LevaQUIN (levofloxacin) 750 mg Route: IVPB; Site: right antecubital; kc6 13:10 Drug: morphine 4 mg Route: IVP; Infused Over: 4 mins; Site: right wrist; kc6 14:32 Drug: Ketorolac 15 mg Route: IVP; Site: right antecubital; kc6 15:16 Drug: vancoMYCIN 1 grams Route: IVPB; Infused Over: 2 hrs; Site: right antecubital; kc6 15:16 Drug: Dilaudid (HYDROmorphone) 1 mg Route: IVP; Site: right antecubital; kc6 17:44 Drug: fentaNYL (PF) 50 mcg Route: IVP; Site: right antecubital; kc6 18:37 Follow up: Response: No adverse reaction; Pain is decreased; RASS: Alert and Calm (0) [facility] 18:43 Drug: Magnesium Sulfate 1 grams Route: IVPB; Infused Over: 1 hrs; Site: right kc6 antecubital; 18:57 CANCELLED (Other Intervention Used): Digoxin 0.5 mg IVP once jl7 19:25 Drug: amiodarone 900 mg, D5W 500 ml Route: IVPB; Rate: 1 mg/min; Site: right wrist; ke1 20:15 Drug: Digoxin 0.5 mg Route: IVP; Site: right antecubital; ke1 20:21 Drug: NS 0.9% 500 ml Route: IV; Rate: bolus; Site: right antecubital; ke1 Intake: 12:50 IV: 3000ml; Total: 3000ml. [facility] Outcome: 14:34 Decision to Hospitalize by Provider. [facility] 22:34 Patient left the ED. tw5 Signatures: Dispatcher [employer] EDMS Bret Hancock PA PA jmm Martinez, Amelia as Garcia, Victoria, RN RN amie1 Karolina Smalls Tiffany tw5 Hayde Herman RN RN ke1 Brenda Quiroga RN RN kc6 Sekou Hernandez RN jl7 Corrections: (The following items were deleted from the chart) 19:26 19:25 amiodarone 900 mg, D5W 500 ml IVPB at 1 mg/min in right hand ke1 ke1 21:10 19:28 BP 104 / 68; Pulse 154bpm; Resp 20bpm; Pulse Ox 96%; Pain 0/10; ke1 ke1 21:10 20:04 BP 95 / 79; Pulse 156bpm; Resp 17bpm; Pulse Ox 95%; Pain 0/10; ke1 ke1 21:10 20:30 BP 89 / 52; Pulse 90bpm; Resp 18bpm; Pulse Ox 95%; ke1 ke1
[2022-08-09] MEDS ORDERED: KETOROLAC 30 MG/ML INJ ONE (14:36)
[2022-08-09] MEDS ORDERED: ALBUTEROL 2.5 MG/3 ML NEB SOL NEB PRN (14:50)
[2022-08-09] MEDS: NA CHLORIDE 0.9% 1,000 ML IV SCH (15:00)
[2022-08-09] MEDS ORDERED: HYDROMORPHONE HCL 1 MG/ML INJ ONE (15:06)
[2022-08-09] MEDS ORDERED: VANCOMYCIN 1 GM in NA CHLORIDE 0.9% 250 ML IVPB SCH (16:00)
[2022-08-09] MEDS ORDERED: FENTANYL CITR 100 MCG/2 ML ONE (17:43)
[2022-08-09] MEDS ORDERED: MAGNESIUM SULFATE 1 gm IVPB 1 GM/100 ML BAG IV ONE (18:41)
--- NOTE | 2022-08-09 18:55 | P.HP ---
Certification for Inpatient Patient admitted to: Inpatient With expected LOS: >2 Midnights Patient will require the following post-hospital care: None Practitioner: I am a practitioner with admitting privileges, knowledge of patient current condition, hospital course, and medical plan of care. Services: Services provided to patient in accordance with Admission requirements found in Title 42 Section 412.3 of the Code of Federal Regulations <MarthaErasto - Last Filed: 08/09/22 18:50> Patient History Date of Service: 08/09/22 Reason for admission: SOB, right leg swelling History of Present Illness: This is a 71-year-old male with past medical history of A. fib on Xarelto, asthma and bilateral groin stents. Patient presents to emergency with complaints of shortness of breath. Patient was evaluated in the ER with at bedside. Both parties are poor historians. Per , patient went to the ER in [place] yesterday for complaints of right leg pain. reports patient leg was swollen, the leg was purple and cold to the touch. Patient was discharged home with no treatment. She reported that patient was short of breath in the ER with oxygenation in the 80s, patient was treated oxygen,his sats recovered and he was sent home. Per , patient woke up this morning with leg pain described as a sharp pain with a rating of 5 out of 10. Patient reported associated symptoms of shortness of breath nonradiating chest pain. On review of system, patient reported burning on urination. On physical exam, patient's right lower extremity was warm to the touch, with +3 pitting edema with moderate sensation. In the ER, patient was positive for leukocytosis and was found to have a UTI. All studies have been negative for DVT or PE. Patient will be admitted under care of Dr. Ramírez. Infectious disease will be consulted for further recommendations. - Past Medical/Surgical History -: Atrial fib -: Asthma Past Surgical History: Reviewed- Non-Contributory - Family History Family History: Reviewed- Non-Contributory - Social History Smoking Status: Never smoker Alcohol use: No CD- Drugs: No Caffeine use: No Place of Residence: Home <Erasto Thomas - Last Filed: 08/09/22 18:50> Date of Service: 08/09/22 <Alfonso Ramírez - Last Filed: 08/09/22 22:56> Allergies No Known Allergies Allergy (Unverified 08/09/22 18:07) Review of Systems General: Weakness Respiratory: Shortness of Breath, SOB with Excertion Cardiovascular: Chest Pain Musculoskeletal: Leg Pain, Pedal edema Neurological: Weakness <Erasto Thomas - Last Filed: 08/09/22 18:50> Physical Examination - Vital Signs Blood Pressure: 108/63 Pulse: 98 Respirations: 23 Pulse Ox (%): 100 - Physical Exam General: Alert, In no apparent distress HEENT: Atraumatic, Normocephalic Neck: Supple, 2+ carotid pulse no bruit Respiratory: Diminished Cardiovascular: Edema Capillary refill: <2 Seconds Gastrointestinal: Normal bowel sounds Musculoskeletal: Swelling, Erythema, Tenderness Integumentary: Tenderness/swelling, Erythema, Warmth Neurological: Normal tone, Abnormal sensation Lymphatics: No axilla or inguinal lymphadenopathy - Studies Laboratory Data (last 24 hrs) 08/09/22 10:14: PT 34.7 H, INR 3.15 08/09/22 10:14: WBC 18.50 H, Hgb 15.0, Hct 45.4, Plt Count 224 08/09/22 10:14: Sodium 139, Potassium 4.1, BUN 11, Creatinine 1.08, Glucose 158 H, Magnesium 2.0, Total Bilirubin 0.9, AST 14 L, ALT 30, Alkaline Phosphatase 87 <Erasto Thomas - Last Filed: 08/09/22 18:50> - Studies Laboratory Data (last 24 hrs) 08/09/22 10:14: PT 34.7 H, INR 3.15 08/09/22 10:14: WBC 18.50 H, Hgb 15.0, Hct 45.4, Plt Count 224 08/09/22 10:14: Sodium 139, Potassium 4.1, BUN 11, Creatinine 1.08, Glucose 158 H, Magnesium 2.0, Total Bilirubin 0.9, AST 14 L, ALT 30, Alkaline Phosphatase 87 <Alfonso Ramírez - Last Filed: 08/09/22 22:56> Assessment and Plan - Plan Assessment Right leg pain with cellulitis Hx of Atrial fib Shortness of breath UTI Plan Continue antibiotics Infectious disease consulted, recommendations appreciated Medicate for pain as needed Monitor Vanco trough Blood cultures pending Follow-up venous Doppler Continue IV fluids Nebulizer treatment as needed Oxygen support as needed Resume home medication when appropriate Patient on Xarelto per but unsure of dose PPX- Lovenox Discharge Plan: Home Plan to discharge in: Greater than 2 days - Advance Directives Does patient have a Living Will: No Does patient have a Durable POA for Healthcare: No - Code Status/Comfort Care Code Status Assessed: Yes (Full code) Critical Care: No Time Spent Managing Pts Care (In Minutes): 50 <Erasto Thomas - Last Filed: 08/09/22 18:50> Physician Review: Patient Assessed, Agree with Above Assessment and Plan <Alfonso Ramírez - Last Filed: 08/09/22 22:56>
[2022-08-09] MEDS ORDERED: DIGOXIN 0.25 MG/ML AMP ONE (20:14)
[2022-08-09] MEDS ORDERED: NA CHLORIDE 0.9% 500 ML ONE (20:20)
[2022-08-09] MEDS ORDERED: AMIODARONE IN DEXTROSE,ISO-OSM 360 MG/200 ML BAG IV SCH (21:45)
[2022-08-09 22:39] VITALS: BMI 32.8
[2022-08-09] MEDS: CEFEPIME 1 GM in NA CHLORIDE 0.9% 100 ML IV SCH (23:11)
[2022-08-09] MEDS: MELATONIN 5 MG TABLET PO PRN (23:39)
[2022-08-10] MEDS: ONDANSETRON 4 MG/2 ML VIAL IV PRN (00:22)
[2022-08-10] MEDS: TRAMADOL HCL 50 MG TAB PO PRN ×2 (00:44→10:36)
[2022-08-10] MEDS: VANCOMYCIN 2 GM in NA CHLORIDE 0.9% 500 ML IVPB SCH ×2 (02:58→22:00)
[2022-08-10] MEDS ORDERED: VANCOMYCIN 1 GM/VIAL ONE (02:58)
[2022-08-10] MEDS ORDERED: NA CHLORIDE 0.9% 500 ML ONE (02:58)
[2022-08-10] MEDS ORDERED: VANCOMYCIN 1.5 GM in NA CHLORIDE 0.9% 500 ML IVPB SCH (03:00)
[2022-08-10] MEDS: NA CHLORIDE 0.9% 1,000 ML IV SCH (03:07)
[2022-08-10 05:09] LABS: Hematocrit 42.9 % (39.6-49.0); MCV 97.6 fL (80-100); MPV 7.8 fL (7.6-11.3)
[2022-08-10 05:29] LABS: Potassium 4.7 mmol/L (3.5-5.1)
[2022-08-10] MEDS: CEFEPIME 1 GM in NA CHLORIDE 0.9% 100 ML IV SCH ×2 (08:16→20:47)
[2022-08-10] MEDS: RIVAROXABAN 10 MG TABLET PO SCH (08:16)
[2022-08-10 08:22] LABS: Blood Morphology Comment NOT SEEN (NOT SEEN); Platelet Estimate ADEQ
[2022-08-10] MEDS ORDERED: ENOXAPARIN 40 MG/0.4 ML SQ SCH (09:00)
[2022-08-10] MEDS ORDERED: AMIODARONE HCL 900 MG in Dextrose 5%-Water 482 ML IV SCH (09:01)
[2022-08-10] MEDS: IPRATROPIUM BROM 0.5MG/2.5ML NEB PRN (11:04)
[2022-08-10] MEDS: DIPHENHYDRAMINE 25 MG TAB/CAP PO PRN (12:40)
[2022-08-10] MEDS: Ringers Lactate 1,000 ML IV SCH ×2 (12:40→15:43)
--- NOTE | 2022-08-10 12:51 | P.PN ---
Subjective Date of Service: 08/10/22 Chief Complaint: SOB, right leg swelling Overnight, he went into atrial fibrillation with rapid ventricular response. He was started on an amiodarone drip and transferred to the ICU. This morning, he is rate-controlled. He reports significant right lower extremity pain. He denies any chest pain or palpitations. Review of Systems 10-point ROS is otherwise unremarkable Cardiovascular: Palpitations Musculoskeletal: Leg Pain (right) Physical Examination - Vital Signs Temperature: 97.1 F Blood Pressure: 92/45 Pulse: 78 Respirations: 20 Pulse Ox (%): 100 - Physical Exam General: Alert, In no apparent distress, Oriented x3 HEENT: Atraumatic, Mucous membr. moist/pink, Sclerae nonicteric Neck: JVD not distended Respiratory: Clear to auscultation bilaterally, Normal air movement Cardiovascular: Normal pulses, No murmurs, Edema (1-2+ BLE), Irregular heart rate/rhythm Gastrointestinal: Normal bowel sounds, Soft and benign, Non-distended, No tenderness, No rebound, No guarding Musculoskeletal: No clubbing Integumentary: No rashes Neurological: Normal speech, Normal affect - Studies Microbiology Data (last 24 hrs): 08/09/22 12:04 Blood - Blood Anaerobic Blood Culture - Final Assessment And Plan - Plan # Severe Sepsis likely secondary to Gram-Negative Urinary Tract Infection +/- Right Lower Extremity Cellulitis (POA) # Microscopic Hematuria He met sepsis criteria based on HR > 90 bpm, RR > 20 breaths/min, and WBC > 12,000 and the suspected source is a UTI +/- cellulitis. Severe sepsis is suspected due to concern for tissue hypoperfusion/organ dysfunction based on hypotension (SBP < 90), coagulopathy (INR > 1.5), and lactic acid > 2 mmol/L. - Sepsis not documented in H&P, but was present and treated on admission - Time Zero = 08/09/2022 @ 11:05 AM - Sepsis order set was initiated - Lactate trend: 2.4 -> 1.7 - Urinalysis = trace ketone, 3+ blood, positive nitrite, 3+ leukocyte esterase, >50 RBCs, >50 WBCs, 20-50 bacteria, 3+ protein - Urine culture >100,000 CFU/mL - 4+ gram-negative rods - Blood cultures drawn before antibiotics were given - Broad spectrum antibiotics started: Vancomycin + Cefepime - In regards to fluids: - 30 mL/kg of IV fluids was not administered given SBP > 90, MAP > 65, lactic acid < 4 # Paroxysmal Atrial Fibrillation with Rapid Ventricular Response - Cardiology consulted - recommendations appreciated - For rate control: not on medication at home - Started on amiodarone drip - For anticoagulation: - Continue home rivaroxaban # Peripheral Arterial Disease - Right lower extremity arterial Doppler = "No flow limiting arterial stenosis in the right lower extremity." - Right lower extremity venous Doppler = "No DVT in the right lower extremity." - Continue home clopidogrel # Hepatic Steatosis # Left Hepatic Dome Lesion (10 mm) - Noted on CT scan - Follow-up with PCP for further evaluation Alfonso Ramírez M.D.
[2022-08-10] MEDS ORDERED: Ringers Lactate 500 ML IV ONE (16:05)
--- NOTE | 2022-08-10 17:04 | RAD REPORT ---
EXAM DESCRIPTION: CT - Lower Ext Wo Con W/ Mpr - 08/10/2022 4:50 pm CLINICAL HISTORY: RLE r/o osteo Leg pain and swelling COMPARISON: No comparisons FINDINGS: There is significant skin thickening and subcutaneous fat stranding seen throughout the lo wer leg. Muscle atrophy is notable throughout the leg. Moderate vascular atherosclerosis. There is no finding suggestive of a well-formed abscess collection. No soft tissue mass or hematoma s een. No CT evidence of osteomyelitis. All CT scans are performed using dose optimization technique as appropriate and may include automated exposure control or mA/KV adjustment according to patient size. IMPRESSION: No CT evidence of osteomyelitis. MRI remains a clinical concern, MRI would be indicated, which is a more sensitive.
--- NOTE | 2022-08-10 17:05 | RAD REPORT ---
EXAM DESCRIPTION: CT - Abdomen Pelvis Wo Contrast - 08/10/2022 4:57 pm CLINICAL HISTORY: Abdominal pain. Abdominal distention COMPARISON: No comparisons TECHNIQUE: CT imaging of the abdomen and pelvis was performed without contrast. Solid organ, bowel a nd vascular assessment is limited due to lack of IV and oral contrast. All CT scans are performed using dose optimization technique as appropriate and may include automated exposure control or mA/KV adjustment according to patient size. FINDINGS: The lower lung pizano are clear. The liver, spleen, pancreas, adrenal glands and kidneys are within normal limits for a limited non-co ntrast examination.Bilateral renal cysts. Vascular stenting noted. No bowel obstruction, free air, free fluid or abscess. The appendix is normal. The osseous structures are within normal limits. IMPRESSION: No acute intra-abdominal or pelvic findings. A limited non-contrast examination was performed as detailed.
[2022-08-10] MEDS: CLOPIDOGREL 75 MG TABLET PO SCH (20:48)
[2022-08-11] MEDS: DIPHENHYDRAMINE 25 MG TAB/CAP PO PRN ×2 (00:04→22:50)
[2022-08-11] MEDS: MELATONIN 5 MG TABLET PO PRN ×2 (00:04→22:51)
[2022-08-11] MEDS: TRAMADOL HCL 50 MG TAB PO PRN ×4 (02:50→22:50)
[2022-08-11] MEDS: Ringers Lactate 1,000 ML IV SCH ×3 (02:53→22:38)
[2022-08-11 05:14] LABS: Absolute Lymphocytes (CBC) 0.5 K/uL (0.7-4.9); Hematocrit 41.8 % (39.6-49.0); Lymphocytes % 3.5 % (15.3-44.8); MCV 97.4 fL (80-100); MPV 7.8 fL (7.6-11.3); RBC Red Blood Cell Count 4.29 M/uL (4.33-5.43)
[2022-08-11 05:23] LABS: Potassium 4.2 mmol/L (3.5-5.1)
[2022-08-11] MEDS: RIVAROXABAN 10 MG TABLET PO SCH (08:14)
[2022-08-11] MEDS: CEFEPIME 1 GM in NA CHLORIDE 0.9% 100 ML IV SCH ×2 (08:14→20:52)
--- NOTE | 2022-08-11 08:18 | CON ---
Date of Consultation: 08/11/2022 Reason For Consultation: Atrial fibrillation with rapid ventricular response. History Of Present Illness: A 71-year-old male with history of paroxysmal atrial fibrillation, is on Xarelto; history of asthma; peripheral vascular disease, presented to the emergency room with shortn ess of breath, wheezing, and cough. Also has right leg pain with swelling and redness. Denies havin g any chest pain. No nausea, vomiting, or diarrhea. Patient was found to be in atrial fibrillation with rapid ventricular response. Started on amiodarone drip and converted to sinus rhythm. Past Medical History: Atrial fibrillation, asthma, peripheral vascular disease. Medications: Refer reconciliation sheet for detailed list. Allergies: NO KNOWN DRUG ALLERGIES. Family History: No premature coronary artery disease or cancer. Social History: Does not smoke or drink. Does not use any drugs. Review of Systems: All systems reviewed and they were negative except as mentioned in HPI. Physical Examination: Vital Signs: Temperature is 97.8, pulse 81, breathing 19, blood pressure 130/68, saturating 98% on r oom air. General: Pleasant elderly male, in no distress. Head and Neck: Pupils are equal, reactive to light. Intact eye movements. No JVD. No cervical lym phadenopathy. Neck is supple. Thyroid is not enlarged. Lungs: Decreased breathing sounds with diffuse wheezing. No accessory muscle use or muscle retracti on. Heart: Regular rate and rhythm. No extra sounds. Abdomen: Soft, nontender. Bowel sounds positive. No organomegaly. No masses or hernia. No rigidi ty or rebound. Extremities: Edema bilaterally, worse on the right with cellulitis. Skin: Erythema and swelling and local tenderness of the right lower extremity. Neurologic: Alert, awake, oriented x3. No acute focal deficits appreciated. Lymph nodes: No cervical lymphadenopathy. Investigations: BUN is 9, creatinine 0.75. Troponin is negative and NT-proBNP is 140. Hemoglobin 1 3.5, white blood count 15.3. Had a chest x-ray that showed no acute findings. CTA of the chest and thorax showed normal pulmonary embolism and lower extremity CT showed no osteomyelitis. Arterial Dop pler of lower extremity, no flow-limiting arterial stenosis seen and a venous Doppler was negative fo r DVT. Assessment/recommendations: 1.Atrial fibrillation with rapid ventricular response. Currently is in sinus rhythm. Recommend to finish the full 24 hours infusion of amiodarone intravenously and then switched to 200 mg by mouth tw ice a day and continue Xarelto. However, I recommend to adjust the dose of Xarelto to 20 mg daily. 2.Asthma exacerbation, significant wheezing. Continue current management. 3.Cellulitis of lower extremity, on wide-spectrum antibiotics. SR/MODL Voice ID: [id number] Report ID: [id number]
--- NOTE | 2022-08-11 08:32 | P.CNS ---
Chief Complaint: SOB, right leg swelling History of Present Illness: This is a 71-year-old male with past medical history of A. fib on Xarelto, asthma and bilateral groin stents. Patient presents to emergency with complaints of shortness of breath. Patient was evaluated in the ER with at bedside. Both parties are poor historians. Per , patient went to the ER in [place] yesterday for complaints of right leg pain. reports patient leg was swollen, the leg was purple and cold to the touch. Patient was discharged home w ith no treatment. She reported that patient was short of breath in the ER with oxygenation in the 80s, patient was treated oxygen,his sats recovered and he was sent home. Per , patient woke up this morning with leg pain described as a sharp pain with a rating of 5 out of 10. Patient reported associated symptoms of shortness of breath nonradiating chest pain. On review of system, patient report ed burning on urination. On physical exam, patient's right lower extremity was warm to the touch, with +3 pitting edema with moderate sensation. In the ER, patient was positive for leukocytosis and was found to have a UTI. All studies have been negative for DVT or PE. Patient will be admitted under care of Dr. Ramírez. Infectious disease will be consulted for further recommendations. ID has been consulted for cellulitis of the right lower leg and cellulitis and UTI Allergies No Known Allergies Allergy (Unverified 08/09/22 18:07) Home Medications: Rivaroxaban [Xarelto] 1 tab PO DAILY 08/10/22 - Past Medical/Surgical History -: Atrial fib -: Asthma -: BLE stent - Social History Alcohol use: No CD- Drugs: No Caffeine use: No Place of Residence: Home Review of Systems Musculoskeletal: As per HPI Physical Examination Temp Pulse Resp BP Pulse Ox 97.8 F 81 19 130/68 98 08/11/22 00:00 08/11/22 06:00 08/11/22 05:00 08/11/22 06:00 08/11/22 06:00 General: Alert, In no apparent distress, Oriented x3 Respiratory: Diminished, Other (2 L NC) Cardiovascular: Normal S1 S2, Edema (right leg 3+ edema) Gastrointestinal: Normal bowel sounds Musculoskeletal: Swelling (right leg 3+ edema), Erythema, Warmth, Other (right leg cellulitis) Integumentary: Skin lesion (right leg ellulitis), Tenderness/swelling, Erythema, Warmth Neurological: Normal speech, Normal tone, Normal affect Current medications: Clopidogrel Bisulfate (Clopidogrel 75 Mg Tablet) 75 mg PO BEDTIME [facility] Last Admin: 08/10/22 20:48 Dose: 75 mg Diphenhydramine HCl (Diphenhydramine 25 Mg Tab/Cap) 25 mg PO Q6H PRN PRN Reason: ITCHING Last Admin: 08/11/22 00:04 Dose: 25 mg Cefepime HCl 1 gm/ Sodium (Chloride) 100 mls @ 200 mls/hr IV Q12HR [facility]; Protocol Last Admin: 08/11/22 08:14 Dose: 100 mls Vancomycin HCl 2 gm/ Sodium (Chloride) 500 mls @ 250 mls/hr IVPB Q18H [facility] Last Admin: 08/10/22 22:00 Dose: 500 mls Amiodarone HCl 900 mg/ (Dextrose) 500 mls @ 0 mls/hr IV CONT [facility]; Protocol Last Admin: 08/10/22 12:41 Dose: 500 mls Lactated Ringer's (Lactated Ringers) 1,000 mls @ 125 mls/hr IV .Q8H JOHN Last Admin: 08/11/22 02:53 Dose: 1,000 mls Ipratropium [place] (Ipratropium Brom 0.5mg/2.5ml) 0.5 mg NEB [id number] PRN PRN Reason: WHEEZING Last Admin: 08/10/22 11:04 Dose: 0.5 mg Melatonin (Melatonin 5 Mg Tablet) 5 mg PO BEDTIME PRN PRN PRN Reason: INSOMNIA Last Admin: 08/11/22 00:04 Dose: 5 mg Ondansetron HCl (Ondansetron 4 Mg/2 Ml Vial) 4 mg IV Q6HP PRN PRN Reason: NAUSEA / VOMITING Last Admin: 08/10/22 00:22 Dose: 4 mg Rivaroxaban (Rivaroxaban 10 Mg Tablet) 15 mg PO DAILY [facility] Last Admin: 08/11/22 08:14 Dose: 15 mg Sodium Chloride (Flush Normal Saline 10 Ml) 10 ml IV BID [facility] Last Admin: 08/11/22 08:14 Dose: 10 ml Tramadol HCl (Tramadol Hcl 50 Mg Tab) 50 mg PO Q6H PRN PRN Reason: Pain scale 5-7 (Moderate) Last Admin: 08/11/22 02:50 Dose: 50 mg Microbiology 08/09/22 11:05 Clean Catch Urine [place] Count - Final >100,000 CFU/ML. 08/09/22 11:05 Clean Catch Urine - Final Escherichia Coli 08/09/22 12:04 Blood - Blood Aerobic Blood Culture - Preliminary No growth in 24 hours. 08/09/22 12:04 Blood - Blood Anaerobic Blood Culture - Final 08/09/22 11:45 Blood - Blood Aerobic Blood Culture - Preliminary No growth in 24 hours. 08/09/22 11:45 Blood - Blood Anaerobic Blood Culture - Preliminary No growth in 24 hours. Imagings Data: 08/09 chest xray: IMPRESSION: Minimal linear basilar opacities likely reflecting atelectasis. No definite acute process 08/09 US lower extremity: IMPRESSION: No flow limiting arterial stenosis in the right lower extremity 08/09 US lower extremity: IMPRESSION: No DVT in the right lower extremity 08/09 CT Chest: IMPRESSION: No central pulmonary embolus. Limited evaluation due to motion artifact. Strictly speaking, a clinically significant pulmonary embolus cannot be excluded. A short-term follow-up repeat CT could be performed if the patient's dyspnea improves and alllows a more adequate exam. A v/q scan is also an option depending on clinical suspicion. Hepatic steatosis. 10 mm low-density lesion left hepatic lobe. Statistically, this is benign. In the absence of priors, nonemergent hepatic protocol MRI is suggested for confirmation. Ultrasound may be of limited utility given the degree of hepatic steatosis 08/10 CT Abd/pel: IMPRESSION: No acute intra-abdominal or pelvic findings 08/10 CT lower extremity: IMPRESSION: No CT evidence of osteomyelitis. MRI remains a clinical concern, MRI would be indicated, which is a more sensitive - Problems (1) Cellulitis of right lower extremity Current Visit: Yes Status: Acute Plan: Cultures: 08/09 BC: Negative Antibiotics: - Current on IV Cefepime and Vancomycin, (08/09 to 08/15) Recommendations: - Continue current IV Cefepime and Vancomycin for total of 7 days (2) Urinary tract infection Current Visit: Yes Status: Acute Plan: Cultures: 08/09 BC: Negative 08/09 UC: E. Coli (MDR) Antibiotics: - Current on IV Cefepime and Vancomycin, (08/09 -> 08/15) Recommendations: - Continue current IV Cefepime and Vancomycin for total of 7 days (3) Severe sepsis Current Visit: Yes Status: Acute Plan: Secondary to urinary tract infection and will treat UTI (4) Leukocytosis Current Visit: Yes Status: Acute Plan: Secondary to UTI and Cellulitis of right lower extremity - WBC: 18.5 on admission; 08/10 24.1, and 15.3 today, trending down ID will closely monitoring the trends Conclusions/Impression: Right Lower Extremity Cellulitis Severe Sepsis likely secondary to Gram-Negative Urinary Tract Infection Leukocytosis secondary to UTI and cellulitis of right lower extremity Microscopic Hematuria Paroxysmal Atrial Fibrillation with Rapid Ventricular Response Peripheral Arterial Disease Hepatic Steatosis Left Hepatic Dome Lesion ID will continue monitoring the patient for signs of infection with fever and WBC trends Case has been discussed with Dr. Bailey N Thank you Dr. Tinsley for consult
[2022-08-11] MEDS: VANCOMYCIN 2 GM in NA CHLORIDE 0.9% 500 ML IVPB SCH (14:59)
--- NOTE | 2022-08-11 16:52 | EKG ---
Test Date: 2022-08-10 Test Time: 00:33:14 Fermenter Champagne: RT-O MEASUREMENT RESULTS: Intervals: Rate: 81 DE: 164 QRSD: 90 QT: 362 QTc: 420 [place]: P: 75 DE: 164 QRS: -84 T: 56 INTERPRETIVE STATEMENTS: Normal sinus rhythm Left axis deviation Pulmonary disease pattern Abnormal ECG Compared to ECG 08/09/2022 18:27:30 Myocardial infarct finding no longer present Electronically Signed On 08-11-22 16:50:46 TRANSPORTATION PROJECT MANAGER by Yovani Choudhury
--- NOTE | 2022-08-11 16:53 | EKG ---
Test Date: 2022-08-09 Test Time: 18:27:30 Radio Station Operator: TIM MEASUREMENT RESULTS: Intervals: Rate: 153 MA: QRSD: 80 QT: 284 QTc: 453 [place]: P: MA: QRS: -40 T: -19 INTERPRETIVE STATEMENTS: Afib with RVR Left axis deviation Pulmonary disease pattern Inferior infarct, age undetermined Abnormal ECG Compared to ECG 08/09/2022 17:11:27 No significant changes Electronically Signed On 08-11-22 16:51:34 ASSOCIATE PROFESSOR OF VIOLIN by Yovani Choudhury
--- NOTE | 2022-08-11 16:54 | EKG ---
Test Date: 2022-08-09 Test Time: 17:11:27 Cycle Specialist: TIM MEASUREMENT RESULTS: Intervals: Rate: 156 TN: QRSD: 94 QT: 330 QTc: 531 [place]: P: TN: QRS: -54 T: 190 INTERPRETIVE STATEMENTS: Supra-Ventricular tachycardia Left axis deviation Pulmonary disease pattern Inferior infarct, age undetermined Abnormal ECG Compared to ECG 08/09/2022 11:35:26 Left-axis deviation now present Myocardial infarct finding now present Right superior axis no longer present Electronically Signed On 08-11-22 16:52:20 DIRECTOR OF MEDIA by Yovani Choudhury
--- NOTE | 2022-08-11 16:56 | EKG ---
Test Date: 2022-08-09 Test Time: 11:35:26 Geospatial Imagery Intelligence Analyst: BIANCA MEASUREMENT RESULTS: Intervals: Rate: 113 IA: 168 QRSD: 94 QT: 322 QTc: 441 [place]: P: 63 IA: 168 QRS: 240 T: 55 INTERPRETIVE STATEMENTS: Sinus tachycardia Right superior axis deviation Abnormal ECG Compared to ECG 10/27/2020 16:29:54 Sinus rhythm no longer present Electronically Signed On 08-11-22 16:54:43 BRUSH LOADER AND HANDLE ATTACHER by Yovani Choudhury
[2022-08-11] MEDS: IPRATROPIUM BROM 0.5MG/2.5ML NEB PRN (17:49)
[2022-08-11] MEDS: CLOPIDOGREL 75 MG TABLET PO SCH (20:53)
[2022-08-11] MEDS: AMIODARONE HCL 200 MG TAB PO SCH (20:53)
--- NOTE | 2022-08-12 02:28 | P.PN ---
Date of Service: 08/11/22 Subjective Patient is clinically doing much better. Symptoms continue to improve. Change to oral antibiotics. Anticipate discharge over the next 24-48 hours. Physical Examination - Vital Signs reviewed - Physical Exam General: Alert, In no apparent distress, Oriented x3 Respiratory: Clear to auscultation bilaterally, Normal air movement Cardiovascular: Normal pulses, No murmurs, Edema (1-2+ BLE), Irregular heart rate/rhythm Gastrointestinal: Normal bowel sounds, Soft and benign, Non-distended, No tenderness, No rebound, No guarding Integumentary: No rashes Neurological: Normal speech, Normal affect Assessment And Plan - Plan # Severe Sepsis likely secondary to Gram-Negative Urinary Tract Infection +/- Right Lower Extremity Cellulitis (POA) # Microscopic Hematuria # Paroxysmal Atrial Fibrillation with Rapid Ventricular Response # Peripheral Arterial Disease # Hepatic Steatosis # Left Hepatic Dome Lesion (10 mm) 1. Continue with IV antibiotic 2. change to oral amiodarone 3. change to oral antibiotics in the morning 4. Gentle IV hydration 5. Monitor CBC 6. Strict blood sugar monitoring 7. out of bed and ambulate or transfer. 8. GI and DVT prophylaxis
--- NOTE | 2022-08-12 02:52 | P.DS ---
Discharge Date: 08/12/22 Disposition: ROUTINE DISCHARGE Discharge Condition: GOOD Reason for Admission: SOB, right leg swelling Consultations: cardiology Infectious Disease Brief History of Present Illness: This is a 71-year-old male with past medical history of A. fib on Xarelto, asthma and bilateral groin stents. Patient presents to emergency with complaints of shortness of breath. Patient was evaluated in the ER with at bedside. Both parties are poor historians. Per , patient went to the ER in [place] yesterday for complaints of right leg pain. reports patient leg was swollen, the leg was purple and cold to the touch. Patient was discharged home with no treatment. She reported that patient was short of breath in the ER with oxygenation in the 80s, patient was treated oxygen,his sats recovered and he was sent home. Per , patient woke up this morning with leg pain described as a sharp pain with a rating of 5 out of 10. Patient reported associated symptoms of shortness of breath nonradiating chest pain. On review of system, patient reported burning on urination. On physical exam, patient's right lower extremity was warm to the touch, with +3 pitting edema with moderate sensation. In the ER, patient was positive for leukocytosis and was found to have a UTI. All studies have been negative for DVT or PE. Patient will be admitted under care of Dr. Ramírez. Infectious disease will be consulted for further recommendations. Hospital Course: Heart rate is controlled. Patient is hypoxic most likely related chronic hypoxic respiratory failure. His symptoms are better but we need him to get set up with home oxygen. Once he gets therapy should be able to go home. Infection is controlled as well. At this time, patient is clinically doing well and possibly stable for discharge home. Vital Signs/Physical Exam: Temp Pulse Resp BP Pulse Ox 98.1 F 78 18 120/69 96 08/12/22 00:00 08/12/22 01:00 08/12/22 01:00 08/12/22 01:00 08/12/22 01:00 General: Alert, In no apparent distress, Oriented x3 Laboratory Data at Discharge: WBC 15.30 K/uL (4.3-10.9) H 08/11/22 04:49 Hgb 13.5 g/dL (13.6-17.9) L 08/11/22 04:49 Hct 41.8 % (39.6-49.0) 08/11/22 04:49 Plt Count 211 K/uL (152-406) 08/11/22 04:49 PT 34.7 SECONDS (9.5-12.5) H 08/09/22 10:14 INR 3.15 08/09/22 10:14 Sodium 137 mmol/L (136-145) 08/11/22 04:49 Potassium 4.2 mmol/L (3.5-5.1) 08/11/22 04:49 BUN 9 mg/dL (7-18) 08/11/22 04:49 Creatinine 0.75 mg/dL (0.70-1.30) 08/11/22 04:49 Glucose 114 mg/dL (74-106) H 08/11/22 04:49 Magnesium 2.0 mg/dL (1.6-2.4) 08/09/22 10:14 Total Bilirubin 0.9 mg/dL (0.2-1.0) 08/09/22 10:14 AST 14 U/L (15-37) L 08/09/22 10:14 ALT 30 U/L (16-61) 08/09/22 10:14 Alkaline Phosphatase 87 U/L (45-117) 08/09/22 10:14 Home Medications: Rivaroxaban [Xarelto] 1 tab PO DAILY 08/10/22 Amiodarone HCl [Cordarone*] 200 mg PO BID #60 tab 08/12/22 Cefdinir [Cefdinir*] 300 mg PO BID #20 cap 08/12/22 Clopidogrel Bisulfate [Plavix*] 75 mg PO BEDTIME #30 08/12/22 traMADol HCL [Ultram*] 50 mg PO Q6H PRN #30 tab 08/12/22 New Medications: Cefdinir [Cefdinir*] 300 mg PO BID #20 cap Amiodarone HCl [Cordarone*] 200 mg PO BID #60 tab Clopidogrel Bisulfate [Plavix*] 75 mg PO BEDTIME #30 traMADol HCL [Ultram*] 50 mg PO Q6H PRN #30 tab PRN Reason: Pain Scale 5-7 (Moderate) Physician Discharge Instructions: OK TO DC IV AND DC HOME FOLLOW-UP WITH PRIMARY CARE PROVIDER IN 1-2 WEEKS FOLLOW-UP WITH CARDIOLOGY IN 1-2 WEEKS RETURN TO THE ER IF symptoms worsen CALL DR. URIBE AT [phone] IF ANY QUESTIONS REGARDING HOSPITAL STAY. PLEASE CALL THE FLOOR AT [phone] IF ANY MEDICATION OR NURSING QUESTIONS. Outpatient follow-up with Gastroenterology- evaluate liver lesion and follow-up with alpha fetoprotein levels Diet: AHA Activity: Fall precautions Followup: Unknown,U [Primary Care Provider] -
[2022-08-12 04:20] LABS: Absolute Lymphocytes (CBC) 0.5 K/uL (0.7-4.9); Hematocrit 41.7 % (39.6-49.0); Lymphocytes % 4.8 % (15.3-44.8); MCV 96.7 fL (80-100); MPV 7.3 fL (7.6-11.3); RBC Red Blood Cell Count 4.31 M/uL (4.33-5.43)
[2022-08-12 04:31] LABS: Potassium 3.9 mmol/L (3.5-5.1)
[2022-08-12 06:22] VITALS: TEMP 98.3
[2022-08-12] MEDS: Ringers Lactate 1,000 ML IV SCH (06:22)
[2022-08-12] MEDS: IPRATROPIUM BROM 0.5MG/2.5ML NEB PRN ×2 (07:58→15:37)
[2022-08-12] MEDS: CEFEPIME 1 GM in NA CHLORIDE 0.9% 100 ML IV SCH (08:04)
[2022-08-12] MEDS: VANCOMYCIN 2 GM in NA CHLORIDE 0.9% 500 ML IVPB SCH (08:04)
[2022-08-12] MEDS: AMIODARONE HCL 200 MG TAB PO SCH (08:07)
[2022-08-12] MEDS ORDERED: LIDOCAINE 4% PATCH TOP SCH (09:00)
[2022-08-12] MEDS ORDERED: RIVAROXABAN 10 MG TABLET PO SCH (09:00)
--- NOTE | 2022-08-12 13:16 | P.PN ---
Subjective Date of Service: 08/12/22 Chief Complaint: SOB, right leg swelling Patient lying in bed stating that he would be able to go home today. Patient stated feeling a bit better. No major even upon examination. Physical Examination - Vital Signs Temperature: 98.3 F Blood Pressure: 116/45 Pulse: 75 Respirations: 20 Pulse Ox (%): 99 - Physical Exam General: Alert, In no apparent distress, Oriented x3 Respiratory: Expiratory wheezes, Other (on 2 L NC) Cardiovascular: Normal S1 S2, Edema (b/l legs 1+) Gastrointestinal: Normal bowel sounds Musculoskeletal: Erythema (right leg cellulitis) Integumentary: Skin lesion, Tenderness/swelling (right leg cellulitis), Erythema, Warmth Neurological: Normal speech, Normal tone, Normal affect - Studies Amiodarone HCl (Amiodarone Hcl 200 Mg Tab) 200 mg PO BID [facility] Last Admin: 08/12/22 08:07 Dose: 200 mg Clopidogrel Bisulfate (Clopidogrel 75 Mg Tablet) 75 mg PO BEDTIME [facility] Last Admin: 08/11/22 20:53 Dose: 75 mg Diphenhydramine HCl (Diphenhydramine 25 Mg Tab/Cap) 25 mg PO Q6H PRN PRN Reason: ITCHING Last Admin: 08/11/22 22:50 Dose: 25 mg Cefepime HCl 1 gm/ Sodium (Chloride) 100 mls @ 200 mls/hr IV Q12HR [facility]; Protocol Last Admin: 08/12/22 08:04 Dose: 100 mls Vancomycin HCl 2 gm/ Sodium (Chloride) 500 mls @ 250 mls/hr IVPB Q18H [facility] Last Admin: 08/12/22 08:04 Dose: 500 mls Lactated Ringer's (Lactated Ringers) 1,000 mls @ 125 mls/hr IV .Q8H [facility] Last Admin: 08/12/22 06:22 Dose: 1,000 mls Ipratropium [place] (Ipratropium Brom 0.5mg/2.5ml) 0.5 mg NEB [id number] PRN PRN Reason: WHEEZING Last Admin: 08/11/22 17:49 Dose: 0.5 mg Lidocaine (Lidocaine 4% Patch) 1 patch TOP DAILY [facility] Last Admin: 08/12/22 08:02 Dose: 1 patch Melatonin (Melatonin 5 Mg Tablet) 5 mg PO BEDTIME PRN PRN PRN Reason: INSOMNIA Last Admin: 08/11/22 22:51 Dose: 5 mg Ondansetron HCl (Ondansetron 4 Mg/2 Ml Vial) 4 mg IV Q6HP PRN PRN Reason: NAUSEA / VOMITING Last Admin: 08/10/22 00:22 Dose: 4 mg Rivaroxaban (Rivaroxaban 10 Mg Tablet) 20 mg PO DAILY [facility] Last Admin: 08/12/22 08:03 Dose: 20 mg Sodium Chloride (Flush Normal Saline 10 Ml) 10 ml IV BID [facility] Last Admin: 08/12/22 08:05 Dose: 10 ml Tramadol HCl (Tramadol Hcl 50 Mg Tab) 50 mg PO Q6H PRN PRN Reason: Pain scale 5-7 (Moderate) Last Admin: 08/11/22 22:50 Dose: 50 mg Microbiology Data (last 24 hrs): Microbiology 08/09/22 11:05 Clean Catch Urine [place] Count - Final >100,000 CFU/ML. 08/09/22 11:05 Clean Catch Urine - Final Escherichia Coli 08/09/22 12:04 Blood - Blood Aerobic Blood Culture - Preliminary No growth in 24 hours. 08/09/22 12:04 Blood - Blood Anaerobic Blood Culture - Final 08/09/22 11:45 Blood - Blood Aerobic Blood Culture - Preliminary No growth in 24 hours. 08/09/22 11:45 Blood - Blood Anaerobic Blood Culture - Preliminary No growth in 24 hours. Assessment And Plan - Current Problems (Diagnosis) (1) Cellulitis of right lower extremity Current Visit: Yes Status: Acute Plan: Cultures: 08/09 BC: Negative Antibiotics: - Current on IV Cefepime and Vancomycin, (08/09 to 08/15) Recommendations: - Continue current IV Cefepime and Vancomycin for total of 7 days - ID agrees to switch to PO Cefdinir when discharge the patient (2) Urinary tract infection Current Visit: Yes Status: Acute Plan: Cultures: 08/09 BC: Negative 08/09 UC: E. Coli (MDR) Antibiotics: - Current on IV Cefepime and Vancomycin, (08/09 -> 08/15) Recommendations: - Continue current IV Cefepime and Vancomycin for total of 7 days - ID agrees to switch to PO Cefdinir when discharge the patient (3) Severe sepsis Current Visit: Yes Status: Acute Plan: Secondary to urinary tract infection and will treat UTI (4) Leukocytosis Current Visit: Yes Status: Acute Plan: Secondary to UTI and Cellulitis of right lower extremity - WBC: Resolved. ID will closely monitoring the trends - Plan Right Lower Extremity Cellulitis Severe Sepsis likely secondary to Gram-Negative Urinary Tract Infection, E. Coli (MDR) positive Leukocytosis secondary to UTI and cellulitis of right lower extremity Microscopic Hematuria Paroxysmal Atrial Fibrillation with Rapid Ventricular Response Peripheral Arterial Disease Hepatic Steatosis Left Hepatic Dome Lesion ID will continue monitoring the patient for signs of infection with fever and WBC trends Case has been discussed with Dr. Bailey, N Physician Review: Patient Assessed, Agree with Above Assessment and Plan
--- NOTE | 2022-08-12 13:39 | PN ---
Date of Progress Note: 08/12/2022 Subjective: Seen by bedside, doing clinically well. Review of Systems: Does not have any chest pain, shortness of breath, orthopnea, cough. No nausea, vomiting, diarrhea. All other systems reviewed are negative. He has been in sinus rhythm. Physical Examination: Vital Signs: Temperature is 98.4, pulse 75, breathing at 18, blood pressure 116/45, saturating 99% o n room air. General: Pleasant elderly male, in no distress. Head and Neck: Pupils are equal, reactive to light. Intact eye movements. No JVD. No cervical lym phadenopathy. Neck: Supple. Thyroid is not enlarged. Lungs: Clear to auscultation bilaterally. No rhonchi, rales, or crackles. No accessory muscle use. Heart: Regular rate and rhythm. No extra sounds. Abdomen: Soft, nontender. Bowel sounds positive. No organomegaly. No masses or hernia. No rigidi ty or rebound. Extremities: No edema, clubbing, cyanosis. Intact pulses. Skin: No rash. Neuro: Alert, awake, oriented x3. No acute deficit appreciated. Investigations: BUN 6, creatinine 0.56, and hemoglobin is 13.7. Assessment/recommendation: 1.Atrial fibrillation with rapid ventricular response converted to sinus rhythm. Continue amiodaron e 200 mg twice a day by mouth plus Xarelto. Have the patient follow up with me in the office in 4 weeks, and then, we will adjust the dose of amiodarone then. 2.Cellulitis of lower extremity, it is improving. SR/MODL Voice ID: [id number] Report ID: [id number]
[2022-08-12 15:59] VITALS: BP 135/74
[2022-08-12] MEDS: ONDANSETRON 4 MG/2 ML VIAL IV PRN (16:05)
[2022-08-12] MEDS ORDERED: MAGNES/ALUMIN/SIMET 30ML UCUP PO ONE (16:11)
[2022-08-12 18:12] VITALS: O2SAT 96
[2022-08-13] MEDS ORDERED: RIVAROXABAN 20 MG TABLET PO SCH (09:00)
== END 2022-08-12 19:00 | disposition home or self-care (01) | DRG 872 ==
LOC: ER 09:35 → ERHOLD 14:47 → 3RD-ICU 21:20 → 2ND 08-12 17:15
PROVIDERS: ADMIT Internal Medicine; ATTEND Hospitalist
DX: A41.51 Sepsis due to Escherichia coli [E. coli] (principal); L03.115 Cellulitis of right lower limb; N39.0 Urinary tract infection, site not specified; J45.901 Unspecified asthma with (acute) exacerbation; J96.11 Chronic respiratory failure with hypoxia; R65.20 Severe sepsis without septic shock; I48.0 Paroxysmal atrial fibrillation; J20.9 Acute bronchitis, unspecified; I73.9 Peripheral vascular disease, unspecified; K76.0 Fatty (change of) liver, not elsewhere classified; K76.9 Liver disease, unspecified; R31.29 Other microscopic hematuria; Z95.9 Presence of cardiac and vascular implant and graft, unspecified; Z79.02 Long term (current) use of antithrombotics/antiplatelets; Z99.81 Dependence on supplemental oxygen; Z79.01 Long term (current) use of anticoagulants; Z20.822 Contact with and (suspected) exposure to COVID-19
CPT/HCPCS: 0240U; 36415; 71045; 71275; 73700; 74176; 76377; 80048; 80076; 80202; 81003; 81015; 82105; 83605; 83735; 83880; 84484; 85025; 85610; 87040; 87077; 87086; 87088; 87186; 93005; 93926; 93971; 94010; 94640; 97161; 97530; 99284; J0282; J0692; J1160; J1170; J2001; J2405; J3010; J3370; J3475; J7030; J7040; J7050; J7060; J7120; J7644; Q9967

== ENCOUNTER 2022-08-14 15:01 | Inpatient (IN) | payer OTHER ==
--- OUTSIDE RECORDS SUMMARY | 2022-08-14 15:13 | XMS REPORT | Continuity of Care Document ---
:1950 Author Organization [facility] t Address [address] [place] [address] Care Team Providers Name Role Phone Unknown, Physician Primary Care Physician Unavailable NOE LUDWIG Attending Clinician Unavailable NOE LUDWIG Attending Clinician Unavailable YUDI DOE Attending Clinician Unavailable Yudi Doe DO Attending Clinician Doctor Unassigned, [place] Attending Clinician Unavailable Noe Ludwig Attending Clinician Marie uDkes MA Attending Clinician Unavailable Yariel Pradhan MD Attending Clinician Jordy Toussaint MD Attending Clinician MD JORDY TOUSSAINT Attending Clinician Unavailable Erendira Barron MA Attending Clinician Unavailable Tal Ríos MD Attending Clinician Mary Salas Attending Clinician Denzel Leavitt MD Attending Clinician MD YARIEL PRADHAN Attending Clinician Unavailable Hanna Mendez RN Attending Clinician Unavailable Kimberly SOTO, Michael Henry Attending Clinician [phone] Doreen Resendiz MD Attending Clinician ChantelleEdmundo Kingsley NP Attending Clinician [phone] Rip Nova MD Attending Clinician RIP NOVA Attending Clinician Unavailable KORTNEY CLARKE Attending Clinician Unavailable JERMAIN SILVERMAN Attending Clinician Unavailable XENA ECHEVERRIA Attending Clinician Unavailable TYESHA CHENG Attending Clinician Unavailable Kody Paulson Attending Clinician Izzy German Attending Clinician Devendra Ortiz Attending Clinician Stephani Briggs Attending Clinician Kvng Fraire Attending Clinician Rogerio Hinojosa Attending Clinician YUDI DOE Admitting Clinician Unavailable JORDY TOUSSAINT Admitting Clinician Unavailable MD JORDY TOUSSAINT Admitting Clinician Unavailable YARIEL PRADHAN Admitting Clinician Unavailable MD YARIEL PRADHAN Admitting Clinician Unavailable RIP NOVA Admitting Clinician Unavailable XENA ECHEVERRIA Admitting Clinician Unavailable TYESHA CHENG Admitting Clinician Unavailable Noe Ludwig Admitting Clinician Payers Payer Name Policy Type Policy Number Effective Date Expiration Date S rei [facility] [employer] [facility] [id number] 2021 MEDICARE 00:00:00 [facility] [id number] 2017 00:00:00 [place] [id number] 2022 00:00:00 Problems Condition Condition Condition Status Onset Resolution Last Treating Co mments Source Name Details Category Date Date Treatment Clinician Date 6 MONTH 6 MONTH Diagnosis Active 2022-08-13 Memoria FOLLOW UP FOLLOW UP 01-23 05:46:00 l Active 00:00: Sg 01/23/2022 00 [facility] TELE VISIT TELE Diagnosis Active 2022-01-23 Memoria VISIT 07-25 16:59:00 l Active 00:00: Sg 07/25/2021 00 [facility] ECHO/PER ECHO/PER Diagnosis Active 2020-072021-08-[address] John Lopez 15:45:00 l Active 00:00: Sg 04/19/2021 00 [facility] F/U F/U Diagnosis Active 2021-05-03 Mem oria Active 04-12 17:09:00 l 04/12/2021 00:00: Rudy perez [address] Wound Wound Disease Active Methodi infection infection 4-10 st 00:00: Hospita 00 l IVC IVC Disease Active Overview: Method i (inferior (inferior 3-12 Formattin s t vena cava vena cava 00:00: g of this H ospita obstructio obstructio 00 note l n) n) might be different from the original. Added automatic ally from request for surgery [id number] Leg edema Leg edema Disease Active Overview: Methodi 3-[address] 00:00: g of this Hospita 00 note l might be different from the original. Added automatic ally from request for surgery [id number] VIRTUAL VIRTUAL Diagnosis Active 2020-08-17 Memoria VISIT VISIT 02-08 16:22:00 l Active 00:00: Sg 02/09/2020 [facility] Vena cava Vena cava Disease Active 2018-07 Met hodi obstructio obstructio 2-16 st n, n, 00:00: Hospita inferior inferior 00 l Vena cava, Vena cava, Disease Active 2018-07 M ethodi inferior, inferior, 2-09 st obstructio obstructio 00:00: Ho spita n syndrome n syndrome 00 l Acute deep Acute deep Disease Active 2018-07 Overview : Methodi vein vein 1-[address] thrombosis thrombosis 00:00: g of this Hospita (DVT) of (DVT) of 00 note l femoral femoral might be vein of vein of different right right from the lower lower original. extremity extremity Added automatic ally from request for surgery [id number] 3 MONTH 3 MONTH Diagnosis Active 2018-072019-08-11 Memoria FOLLOW UP FOLLOW UP 0-17 12:23:00 l Active 00:00: Sg 05/05/2019 [facility] 3 MONHT 3 MONHT Diagnosis Active 2018-072019-08-01 Memoria FOLLOW UP FOLLOW UP 0- 08:31:00 l Active 00:00: Sg 05/05/2019 00 [facility] FOLLOW UP FOLLOW UP Diagnosis Active 2018-072019-05-05 Memoria Active 0 11:11:00 l 05/02/2019 00:00: Rudy perez [address] DVT (deep DVT (deep Disease Active Met hodi venous venous 04-11 st thrombosis thrombosis 00:00: Ho spita ) ) 00 l R06.02 - R06.02 - Diagnosis Active 2019-03-18 Memoria SHORTNESS SHORTNESS 7- 08:12:00 l OF BREATH OF BREATH 00:01: Herm antony Active 00 01/21/2019 [facility] 2 MONTH 2 MONTH Diagnosis Active 2019-03-17 Memoria FOLLOW UP FOLLOW UP 11-23 15:17:00 l Active 00:00: Sg 11/23/2018 00 [facility] WOUND WOUND Diagnosis Active 2019-04-08 Mem oria Active 07-20 10:28:00 l 07/20/2018 08:00: Rudy Thompson 00 Rehab MID BACK MID BACK Diagnosis Active 2019-03-23 Memoria SX WOUND 3 SX WOUND 3 07-20 11:00:00 l WKKS WKKS 08:00: Squire Active 00 07/20/2018 P[facility] Urinary Urinary Disease Active 2017-07 Methodi tract tract 1-29 st infection infection 00:00: Hosp laura associated associated 00 l with with indwelling indwelling urethral urethral catheter catheter Asthma Asthma Disease Active 2017-07 Methodi 1-[facility] 00:00: Hospita 00 l DYSPNEA DYSPNEA Diagnosis Active 2017-072018-10-03 Memoria Active 07-25 15:28:00 l 05/25/2018 00:00: Rudy SANTIAGO Donna 00 Rehab R60.0 - R60.0 - Diagnosis Active 2018-03-01 Memoria LOCALIZED LOCALIZED 12-11 07:47:00 l EDEMA EDEMA 00:01: Sg R06.02 - R06.02 - 00 SHORTNE SHORTNE Active 12/11/2017 YUMI[facility] Thompson NEW PT/ NEW PT/ Diagnosis Active 2017-12-10 Memoria CARDIAC CARDIAC 12-10 13:21:00 l CONSULT/ CONSULT/ 00:00: Rudy perez REF. . REF. DR. 00 MAXI GERMAN Active 12/10/2017 [facility] 3 WEEK 3 WEEK Diagnosis Active 2018-01-12 Ri ramon FOLLOW UP FOLLOW UP 12-10 13:00:00 l Active 00:00: Squire 12/10/2017 00 [facility] I73.89 - I73.89 - Diagnosis [facility] OTHER 1-16 12:01:00 l SPECIFIED SPECIFIED 00:01: Herm antony PERIPHERAL PERIPHERAL 00 VAS VAS Active 8 OPID Donna CARDIAC CARDIAC Diagnosis Active 2017-10-10 [facility] EVAL. EVAL. 07-20 15:39:00 l Active 00:00: Squire 07/20/2017 00 [facility] DM DM Disease Active 2016-07 [...] 00 07/02/2010 Problem 12/22/2017 Data migrated from [employer] on 03/13/15. Il[facility], H YUMIKO Thompson Lumbar Lumbar Problem Active 2009-072022-01-26 German lamin radiculopa radiculopa 2-14 00:40:07 l thy thy 00:00: Squire (disorder) (disorder) 00 Active 07/02/2010 Problem 01/26/2022 Data migrated from [employer] on 03/13/15. Ilene [facility], [facility] Thompson, [facility] Spinal Spinal Problem Active 2009-072022-01-26 German lamin stenosis stenosis 2-14 00:40:07 l of lumbar of lumbar 00:00: Herm antony region region 00 (disorder) (disorder) Active 07/02/2010 Problem 01/26/2022 Data migrated from [employer] on 03/13/15. Ilene [facility], YUM[facility] Thompson, [facility] No known No known Disease Unive rs active active ity of problems problems [facility] DISRUPTION DISRUPTIO Diagnosis Active 2019-03-23 Memoria OF N OF 11:00:00 l EXTERNAL EXTERNAL Rudy n OPERATION OPERATION (SURGIC (SURGIC Active [facility] UNSPECIFIE UNSPECIFI Diagnosis Active 2018-11-18 Memoria D ATRIAL ED ATRIAL 08:58:00 l FIBRILLATI FIBRILLATI He rmann ON ON Active [facility] DYSPNEA, DYSPNEA, Diagnosis Active 2018-01-12 Memoria UNSPECIFIE UNSPECIFIE 13:00:00 l D D Active Squire [facility] Numbness Numbness Problem Active 2017-12-22 Memoria of lower of lower 00:55:59 l limb limb Squire (finding) (finding) Active Problem 12/22/2017 [facility],M H YUMIKO Donna Atrial Atrial Problem Active 2022-01-26 German lamin fibrillati fibrillati 00:40:07 l on on Squire (disorder) (disorder) Active Problem 01/26/2022 [facility], [facility] Deep Deep Problem Active 2022-01-26 Memor ia venous venous 00:40:07 l thrombosis thrombosis He rmann of lower of lower extremity extremity (disorder) (disorder) Active Problem 01/26/2022 [facility] Dyslipidem Problem Active 2022-01-26 M emoria ia Dyslipidem 00:40:07 l (disorder) ia Rudy n (disorder) Active Problem 01/26/2022 [facility], [facility], [facility] Kyphosis Kyphosis Problem Active 2022-01-26 Memoria deformity deformity 00:40:07 l of spine of spine Rudy n (disorder) (disorder) Active Problem 01/26/2022 [facility], [facility], [facility] Lumbar Lumbar Problem Active 2022-01-26 German lamin 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 (disorder) (disorder) Active Problem [facility]/26/2022 [facility] Peripheral Periphera Problem Active 2022-01-26 Memoria venous l venous 00:40:07 l insufficie insufficie He argelia ncy ncy (disorder) (disorder) Active Problem 01/26/2022 [facility] Neuro,[facility], [facility] Simple Simple Problem Active 2022-01-26 German lamin obesity obesity 00:40:07 l (disorder) (disorder) He rmann Active Problem 01/26/2022 [facility] Dyspnea Dyspnea Problem Active 2019-04-10 Me moria (finding) (finding) 22:00:09 l Active Squire Problem 04/10/2019 [facility] Rehab,[facility] Disease Disease Problem Active 2022-01-26 Me moria caused by caused by 00:40:07 l 2019-nCoV 2018-nCoV Herm antony Active Problem 01/26/2022 [facility] ENCNTR FOR ENCNTR Diagnosis Active 2020-08-17 Memoria GENERAL FOR 16:22:00 l ADULT GENERAL Squire MEDICAL ADULT EXAM W/ MEDICAL EXAM W/ Active [facility] ENCOUNTER ENCOUNTER Diagnosis Active 2021-08-06 Memoria FOR FOR 15:45:00 l GENERAL GENERAL Squire ADULT ADULT MEDICAL MEDICAL EXAM EXAM Active [facility] SKIN GRAFT SKIN Diagnosis Active 2019-04-08 Memoria (ALLOGRAFT GRAFT 10:28:00 l ) (ALLOGRAFT Rudy n (AUTOGRAFT ) ) FAILU (AUTOGRAFT ) FAILU Active [facility] UNSP OPN UNSP OPN Diagnosis Active 2019-04-08 Memoria WND LOW WND LOW 10:28:00 l BACK AND BACK AND Rudy n PELV W/O PELV W/O PENET PENET Active [facility] OTH OTH Diagnosis Active 2019-04-08 Mem oria COMPLICATI COMPLICATI 10:28:00 l ONS OF ONS OF Squire PROCEDURES PROCEDURES , NEC, IN , NEC, IN Active [facility] History of Past Illness Condition Condition Condition Status Onset Resolution Last Treating Co mments Source Name Details Category Date Date Treatment Clinician Date Acute Acute Problem 2022-01-26 2022-01-26 M emoria embolism embolism 01-23 00:40:07 00:40:07 l and and 17:33: Sg thrombosis thrombosis 00 of of unspecifie unspecifie d deep d deep veins of veins of right right lower lower extremity extremity 01/23/2022 01/26/2022 [facility] Venous Venous Problem 2022-01-26 2022-01-26 Memoria insufficie insufficie 01-23 00:40:07 00:40:07 l ncy ncy 17:33: Sg (chronic) (chronic) 00 (periphera (periphera l) l) 01/23/2022 [facility] Unspecifie Unspecifi Problem 2022-01-26 2022-01-26 Memoria d atrial ed atrial 01-23 00:40:07 00:40:07 l fibrillati fibrillati 17:33: He argelia on on 01/23/2022 2 [facility] 2019-nCoV 2019-nCoV Problem 2021-07-28 2021-07-28 Memoria acute acute 07-25 00:25:27 00:25:27 l respirator respirator 19:31: Neil stout y disease y disease 00 07/25/2021 07/28/2021 [facility] Other Other Problem 2017-11-12 2017-11-12 M emoria specified specified 08-11 17:41:34 17:41:34 l peripheral peripheral 06:01: Neil stout vascular vascular 09 diseases diseases 08/11/2017 11/12/2017 YUMIKO Donna Other Other Problem 2017-04-09 2017-04-09 M emoria specified specified 04-06 05:11:23 05:11:23 l soft soft 05:00: Sg tissue tissue 00 disorders disorders 04/06/2017 04/09/2017 [facility] Other Other Problem 2017-04-09 2017-04-09 M emoria specified specified 04-06 05:11:23 05:11:23 l joint joint 05:00: Squire disorders, disorders, 00 right knee right knee 04/06/2017 04/09/2017 [facility] Allergies, Adverse Reactions, Alerts Allergy Allergy Status Severity Reaction(s) Onset Inactive Treating Comm ents Source Name Type Date Date Clinician No Known DA Active U [facility]- [facility] 00[facility]: [address] No Known DA Active U [facility] 00:[facility]: [address] No Known DA Active U [facility] 11-23 [facility] 00:[facility]: [address] No Known DA Active U 2006- [facility] Contrast - [place] Allerg[facility] 00:00: [address] No Known DA Active U 2006-0 [facility] Drug 01-04 [place] Allergie 00:00: [address] No Known DA Active U 2006-0 [facility] Food - [place] Allergie 00:00: [address] No Known DA Active U 2006-0 [facility] Other - [place] Allergie 00:00: [address] NO KNOWN Drug Active Univers ALLERGIE Class ity of S [facility] Family History Family Member Diagnosis Comments Start Date Stop Date Source Natural father [facility] mother [facility] Social History Social Habit Start Date Stop Date Quantity Comments Source History of tobacco Pipe Smoker Metho dist use Hospital History SDOH [facility] Alcohol Comment Hospital History SDW[facility] Alcohol Std Drinks Hospit al History [facility] Binge Hospital Exposure to 2022-07-28 2022-08-07 Not sure [facility] of SARS-CoV-2 (event) 00:00:00 13:13:00 [facility] Alcohol intake 2020-11-15 2020-11-15 Lifetime [facility] 00:00:00 00:00:00 non-drinker Hospital (finding) History SDOH 2020-10-04 2020-10-04 1 [facility] Alcohol Frequency 00:00:00 00:00:00 Hospita l Tobacco use and 2019-05-30 2019-05-30 Smokeless [facility] exposure 00:00:00 00:00:00 tobacco non-user Hospital Tobacco Comment 2019-05-30 2019-05-30 quit 30 yrs ago Meth odist 00:00:00 00:00:00 Hospital Cigarettes smoked 2019-05-30 2019-05-[address] current (pack per 00:00:00 00:00:00 Hospita l ) - Reported Cigarette 2019-05-30 2019-05-30 [facility] pack-years 00:00:00 00:00:00 [facility] Social History 2017-12-08 2017-12-08 [facility] [place] grimaldo 17:47:17 17:47:17 Sex Ass[birth year] At [birth year] [facility] 00:00:00 00:00:00 Hospital Smoking Status Start Date Stop Date Source Tobacco smoking [employer] [facility] [employer] consumption unknown [facility] Ex-smoker 2019-05-30 00:00:00 2019-05-30 [facility] 00:00:00 Medications Ordered Filled Start Stop Current Ordering Indication Dosage Frequency Signature Comments Components Source Medication Medication Date Date Medication? Clinician (SIG) Name Name ipratropium 2022- No .5mg 0.5 mg, Un dilan (ATROVENT) 08-07 Inhalation it y of 0.02 % 21:15: 20:24 , ONCE, 1 [place] nebulizer 00 :00 dose, On Medica l [...] 08-07 medication it y of 13:50: s [place] [address] Xarelto 20 Yes 20 mg = 1 Me moria mg oral 4-18 tab, PO, l tablet 21:35: QPM, # 90 Rudy n 00 tab, 3 Refill(s), Pharmacy: [facility], 170.18, cm, 07/25/21 13:15:00 DOCTOR OSTEOPATHIC, Height, 105.455, kg, 07/25/21 13:15:00 DOCTOR OSTEOPATHIC, Weight Xarelto 20 2022-0 Yes 20 mg = 1 Me moria mg oral 4-18 tab, PO, l tablet 21:35: QPM, # 90 Rudy n 00 tab, 3 Refill(s), Pharmacy: [facility], 170.18, cm, 07/25/21 13:15:00 DOCTOR OSTEOPATHIC, Height, 105.455, kg, 07/25/21 13:15:00 DOCTOR OSTEOPATHIC, Weight rivaroxaban 2020-0 Yes 20mg Take 20 mg [...] Q8H Take 1 Met hodi ODT (Zofran 10-30-14 tablet (4 st ODT) 4 MG 00:00: 04:59 mg total) Ho spita disintegrat 00 :00 by mouth l ing tablet every 8 (eight) hours as needed for nausea or vomiting for up to 30 days. ramelteon 2020-2020- No 8mg QD Take 1 Metho di (ROZEREM) 8 - 05-14 tablet (8 st mg tablet 00:00: [...] QD Take 1 Metho di (ROZEREM) 8 10-3014 tablet (8 st mg tablet 00:00: 04:59 mg total) Ho spita 00 :00 by mouth l nightly for 30 days. ondansetron 2020- No 4mg Q8H Take 1 Met hodi ODT (Zofran 10-3014 tablet (4 st ODT) 4 MG 00:00: [...] by mouth l nightly for 30 days. doxycycline 2020- No 100mg Q.5D Take [...] for l 7 days. acetamin[place] 2020- [place] [address] 1{tbl} Q6H Take 1 Methodi en-codeine 10-[address] (TYLENOL 00:00: 04:59 mouth Hospita WITH 00 :00 every 6 l CODEINE #3) (six) 300-30 mg hours as per tablet needed for severe pain for up to 7 days .acute pain. cephalexin 2020- No 1000mg Q.[id number] Take 2 Methodi (KEFLEX) 10-[id number] 500 MG 00:00: 04:59 3D [...] for l 7 days. acetaminoph 2020- [place] [id number] 1{tbl} Q6H Take 1 Methodi en-codeine 10-[address] (TYLENOL 00:00: 04:59 mouth Hospita WITH 00 :00 every 6 l CODEINE #3) (six) 300-30 mg hours as per tablet needed for severe pain for up to 7 days .acute pain. cephalexin 2020- No 1000mg Q.[id number] Take 2 Methodi (KEFLEX) 10-[id number] 500 MG 00:00: 04:59 3D [...] for l 7 days. acetaminoph 2020- [place] [id number] 1{tbl} Q6H Take 1 Methodi en-codeine 10-[address] (TYLENOL 00:00: 04:59 mouth Hospita WITH 00 :00 every 6 l CODEINE #3) (six) 300-30 mg hours as per tablet needed for severe pain for up to 7 days .acute pain. cephalexin 2020- No 1000mg Q.[id number] Take 2 Methodi (KEFLEX) 10-[id number] 500 MG 00:00: 04:59 3D (1,000 mg Hospi ta capsule 00 :00 total) by l mouth 3 (three) times a day for 7 days. pantoprazol 2020-0 Yes 40mg QD Take 1 Meth hiren e 4-06 tablet (40 st (Protonix) 00:00: mg total) Ho spita 40 MG EC 00 by mouth l tablet daily. pantoprazol 2020-0 Yes 40mg QD Take 1 Meth hiren e 4-06 tablet (40 st (Protonix) 00:00: mg total) Ho spita 40 MG EC 00 by mouth l tablet daily. pantoprazol 2020-0 Yes 40mg QD Take 1 Meth hiren e 4-06 tablet (40 st (Protonix) 00:00: mg total) Ho spita 40 MG EC 00 by mouth l tablet daily. pantoprazol 2020-0 Yes 40mg QD Take 1 Meth hiren e 4-06 tablet (40 st (Protonix) 00:00: mg total) Ho spita 40 MG EC 00 by mouth l tablet daily. pantoprazol 2020-0 Yes 40mg QD Take 1 Meth hiren e 4-06 tablet (40 st (Protonix) 00:00: mg total) Ho spita 40 MG EC 00 by mouth l tablet daily. pantoprazol 2020-0 Yes 40mg QD Take 1 Meth hiren e 4-06 tablet (40 st (Protonix) 00:00: mg total) Ho spita 40 MG EC 00 by mouth l tablet daily. acetaminoph 2020- No 1{tbl} Q4H Take 1 Methodi en-codeine [...] QD Take 1 Met hodi (PLAVIX) 75 3-11 03-12 tablet (75 s t mg tablet 00:00: 05:59 mg total) Ho spita 00 :00 by mouth l daily. clopidogreL 2020-0 2021- No 75mg QD Take 1 Met [...] 00 :00 by mouth l daily. clopidogreL 2020-0 2021- No 75mg QD Take 1 Met [...] ospita 00 by mouth l daily. mirabegron 202-0 Yes 50mg QD Take 1 Metho di (Myrbetriq) 2-23 tablet (50 st 50 mg 00:00: mg total) Hospita tablet 00 by mouth l extended daily. release 24 hr oxybutynin 2020-0 Yes 5mg QD Take 1 Metho di (DITROPAN) 2-23 tablet (5 st 5 MG tablet 00:00: mg total) H ospita 00 by mouth l daily. doxycycline 2020- No 100mg Q.5D Take 1 Me thodi (VIBRAMYCIN 08-[address] ) 100 MG 00:00: 05:59 (100 mg Hospi ta capsule 00 :00 total) by l mouth 2 (two) times a day for 7 days. gentamicin 2020-2020- No Q.[id number] Apply Methodi (GARAMYCIN) 08-[id number] 0.1 % 00:00: 05:59 3D 3 (three) Hospit a ointment 00 :00 times a l day for 7 days. Apply to right 5th toe ulcer doxycycline 2020-2020- No 100mg Q.5D Take 1 Me thodi (VIBRAMYCIN 08-[address] ) 100 MG 00:00: 05:59 (100 mg Hospi ta capsule 00 :00 total) by l mouth 2 (two) times a day for 7 days. gentamicin 2020- No Q.[id number] Apply Methodi (GARAMYCIN) 08-[id number] 0.1 % 00:00: 05:59 3D [...] 00 :00 by mouth l daily. tolterodine 2020- No 4mg QD Take 1 Met hodi LA (Detrol 02-16-12 capsule (4 st LA) 4 MG 24 00:00: 00:00 mg total) Hospita hr capsule 00 :00 by mouth l daily. tolterodine 2020- No 4mg QD Take 1 Met hodi LA (Detrol 02-16-12 capsule (4 st LA) 4 MG 24 00:00: 00:00 mg total) Hospita hr capsule 00 :00 by mouth l daily. mirabegron No 50mg QD Take 1 Meth hiren (Myrbetriq) 02-1312 tablet (50 s t 50 mg 00:00: 00:00 mg total) Hospit a tablet 00 :00 by mouth l extended daily. release 24 hr mirabegron 2020-0 2021- No 50mg QD Take 1 Meth hiren (Myrbetriq) 02-13-12 tablet (50 s t 50 mg 00:00: 00:00 mg total) Hospit a tablet 00 :00 by mouth l extended daily. release 24 hr mirabegron 2020-0 2021- No 50mg QD Take 1 Meth ihren (Myrbetriq) 02-13-12 tablet (50 s t 50 mg 00:00: 00:00 mg total) Hospit a tablet 00 :00 by mouth l extended daily. release 24 hr rivaroxaban 2020-0 Yes 20 mg = 1 M emoria 20 MG Oral 7-23 tab, PO, l Tablet 18:52: QPM, # 90 Rudy n [Xarelto] 00 tab, 1 Refill(s), Pharmacy: [facility], 170.18, cm, 02/09/20 12:14:00 CDT, Height, 95.455, kg, 02/09/20 12:14:00 CDT, Weight clopidogrel 2020-0 Yes 75 mg = 1 M emoria 75 MG Oral 7-23 tab, PO, l Tablet 18:52: Daily, # Sg [Plavix] 00 90 tab, 1 Refill(s), Pharmacy: [facility], 170.18, cm, 02/09/20 12:14:00 CDT, Height, 95.455, kg, 02/09/20 12:14:00 CDT, Weight rivaroxaban 2020-0 Yes 20 mg = 1 M emoria 20 MG Oral 7-23 tab, PO, l Tablet 18:52: QPM, # 90 Rudy n [Xarelto] 00 tab, 1 Refill(s), Pharmacy: [facility], 170.18, cm, 02/09/20 12:14:00 CDT, Height, 95.455, kg, 02/09/20 12:14:00 CDT, Weight clopidogrel 2020-0 Yes 75 mg = 1 M emoria 75 MG Oral 7-23 tab, PO, l Tablet 18:52: Daily, # Squire [Plavix] 00 90 tab, 1 Refill(s), Pharmacy: [facility], 170.18, cm, 02/09/20 12:14:00 CDT, Height, 95.455, kg, 02/09/20 12:14:00 CDT, Weight rivaroxaban 2020-0 Yes 20 mg = 1 M emoria 20 MG Oral 7-23 tab, PO, l Tablet 18:52: QPM, # 90 Rudy n [Xarelto] 00 tab, 1 Refill(s), Pharmacy: [facility], 170.18, cm, 02/09/20 12:14:00 CDT, Height, 95.455, kg, 02/09/20 12:14:00 CDT, Weight clopidogrel 2020-0 Yes 75 mg = 1 M emoria 75 MG Oral 7-23 tab, PO, l Tablet 18:52: Daily, # Squire [Plavix] 00 90 tab, 1 Refill(s), Pharmacy: [facility], 170.18, cm, 02/09/20 12:14:00 CDT, Height, 95.455, kg, 02/09/20 12:14:00 CDT, Weight rivaroxaban 2020-0 Yes 20 mg = 1 M emoria 20 MG Oral 1-23 tab, PO, l Tablet 20:02: QPM, # 30 Rudy n [Xarelto] 00 tab, 5 Refill(s), Pharmacy: [place] [id number] rivaroxaban 2020-0 Yes 20 mg = 1 M emoria 20 MG Oral 1-23 tab, PO, l Tablet 20:02: QPM, # 30 Rudy n [Xarelto] 00 tab, 5 Refill(s), Pharmacy: [place] [id number] rivaroxaban 2020-0 Yes 20 mg = 1 M emoria 20 MG Oral 1-23 tab, PO, l Tablet 20:02: QPM, # 30 Rudy n [Xarelto] 00 tab, 5 Refill(s), Pharmacy: [place] [id number] clopidogrel 2020-0 Yes 75 mg = 1 M emoria 75 MG Oral 1-23 tab, PO, l Tablet 17:54: Daily, 0 Squire [Plavix] 00 Refill(s) clopidogrel 2020-0 Yes 75 mg = 1 M emoria 75 MG Oral 1-23 tab, PO, l Tablet 17:54: Daily, 0 Sg [Plavix] 00 Refill(s) clopidogrel Yes 75 mg = 1 M emoria 75 MG Oral 1-23 tab, PO, l Tablet 17:54: Daily, 0 Sg [Plavix] 00 Refill(s) clopidogrel 2020- No [id number] 75mg QD Take 1 Methodi (PLAVIX) 75 [...] 40mg QD Take 1 Met hodi e 07-22 04-06 tablet (40 st (PROTONIX) 00:00: 00:00 mg total) H ospita 40 MG EC 00 :00 by mouth l tablet daily. pantoprazol 2020- No 40mg QD Take 1 Met hodi e 07-22 04-06 tablet (40 st (PROTONIX) 00:00: 00:00 mg total) H ospita 40 MG EC 00 :00 by mouth l tablet daily. mupirocin 2018-07 No APPLY Method i (BACTROBAN) 08-[address] 2 % 00:00: 00:00 TOPICALLY Hospita ointment 00 :00 TO l AFFECTED AREA ON RIGHT FOOT TOES THREE TIMES DAILY FOR 14 DAYS mupirocin 2018-07- No APPLY Method i (BACTROBAN) 08-[address] 2 % 00:00: 00:00 TOPICALLY Hospita ointment 00 :00 TO l AFFECTED AREA ON RIGHT FOOT TOES THREE TIMES DAILY FOR 14 DAYS [facility] 2018-07- No 1{tbl} Take 1 M ethodi en-codeine 07-23-[address] (TYLENOL 00:00: 00:00 mouth. PRN Ho spita WITH 00 :00 l CODEINE #3) 300-30 mg per tablet [facility] 2018-07- No 1{tbl} Take 1 M ethodi en-codeine -10 20-[address] (TYLENOL 00:00: 00:00 mouth. PRN Ho spita WITH 00 :00 l CODEINE #3) 300-30 mg per tablet [facility] 2018-07- No 1{tbl} Take 1 M ethodi en-codeine 07-23-[address] (TYLENOL 00:00: 00:00 mouth. PRN Ho spita WITH 00 :00 l CODEINE #3) 300-30 mg per tablet oxybutynin 2018-07 Yes 5 mg = 1 Mem oria 5 mg oral 0-17 tab, PO, l tablet 16:13: BID, 0 Sg 00 Refill(s) warfarin 2018-07 Yes 6 mg = 1 Mem oria mg oral 0-17 tab, PO, l tablet 16:13: Daily, 0 Sg 00 Refill(s) oxybutynin 2018-07 Yes 5 mg = 1 Mem oria 5 mg oral 0-17 tab, PO, l tablet 16:13: BID, 0 Sg 00 Refill(s) warfarin 6 2018-07 Yes 6 mg = 1 Mem oria mg oral 0-17 tab, PO, l tablet 16:13: Daily, 0 Squire 00 Refill(s) oxybutynin 2018-07 Yes 5 mg = 1 Mem oria 5 mg oral 0-17 tab, PO, l tablet 16:13: BID, 0 Sg 00 Refill(s) warfarin 6 2019- Yes 6 mg = 1 Mem oria mg oral 0-17 tab, PO, l tablet 16:13: Daily, 0 Sg 00 Refill(s) Baclofen 2019-0 Yes PO, TID, 0 Mem oria 3-05 Refill(s) l 21:01: Squire 00 rivaroxaban 2019-0 Yes 20 mg = 1 M emoria 20 MG Oral 3-05 tab, PO, l Tablet 21:01: QPM, # 30 Rudy n [Xarelto] 00 tab, 3 Refill(s) pantoprazol 2019-0 Yes 40 mg = 1 M emoria e 40 mg 3-05 tab, PO, l oral 21:01: Daily, 0 Squire enteric 00 Refill(s) coated tablet Baclofen 2019-0 Yes PO, TID, 0 Mem oria 3-05 Refill(s) l 21:01: Squire rivaroxaban 2019-0 Yes 20 mg = 1 M emoria 20 MG Oral 3-05 tab, PO, l Tablet 21:01: QPM, # 30 Rudy n [Xarelto] 00 tab, 3 Refill(s) pantoprazol 2019-0 Yes 40 mg = 1 M emoria e 40 mg 3-05 tab, PO, l oral 21:01: Daily, 0 Sg enteric 00 Refill(s) coated tablet Baclofen 2019-0 Yes PO, TID, 0 Mem oria 3-05 Refill(s) l 21:01: Squire 00 rivaroxaban 2019-0 Yes 20 mg = 1 M emoria 20 MG Oral 3-05 tab, PO, l Tablet 21:01: QPM, # 30 Rudy n [Xarelto] 00 tab, 3 Refill(s) pantoprazol 2019-0 Yes 40 mg = 1 M emoria e 40 mg 3-05 tab, PO, l oral 21:01: Daily, 0 Sg enteric 00 Refill(s) coated tablet primidone 2018-0 Yes 50 mg = 1 Mem oria 50 mg oral 8-03 tab, PO, l tablet 21:43: BID, # 180 Tisha nn 32 tab, 1 Refill(s), Pharmacy: [facility] primidone 2018-0 Yes 50 mg = 1 Mem oria 50 mg oral 8-03 tab, PO, l tablet 21:43: BID, # 180 Tisha nn 32 tab, 1 Refill(s), Pharmacy: [facility] primidone 2018-0 Yes 50 mg = 1 Mem oria 50 mg oral 8-03 tab, PO, l tablet 21:43: BID, # 180 Tisha nn 32 tab, 1 Refill(s), Pharmacy: [facility] potassium 2017-0 Yes 10 mEq = 1 Me moria chloride 10 5-24 tab, PO, l mEq oral 18:31: Daily, Sg tablet, 00 ONLY FOR 1 extended WEEK, # 7 release tab, 0 Refill(s), Pharmacy: [facility] Furosemide 0 Yes 40 mg = 1 Me moria 40 MG Oral 5-24 tab, PO, l Tablet 18:31: Daily, # 7 Tisha nn [Lasix] 00 tab, 0 Refill(s), Pharmacy: [facility], ONLY FOR 1 WEEK potassium 2017-0 Yes 10 mEq = 1 Me moria chloride 10 5-24 tab, PO, l mEq oral 18:31: Daily, Sg tablet, 00 ONLY FOR 1 extended WEEK, # 7 release tab, 0 Refill(s), Pharmacy: [facility] Furosemide 2017-0 Yes 40 mg = 1 Me moria 40 MG Oral 5-24 tab, PO, l Tablet 18:31: Daily, # 7 Tisha nn [Lasix] 00 tab, 0 Refill(s), Pharmacy: [facility], ONLY FOR 1 WEEK potassium 0 Yes 10 mEq = 1 Me moria chloride 10 5-24 tab, PO, l mEq oral 18:31: Daily, Squire tablet, 00 ONLY FOR 1 extended WEEK, # 7 release tab, 0 Refill(s), Pharmacy: [facility] Furosemide 0 Yes 40 mg = 1 Me moria 40 MG Oral 5-24 tab, PO, l Tablet 18:31: Daily, # 7 Tisha nn [Lasix] 00 tab, 0 Refill(s), Pharmacy: [facility], ONLY FOR 1 WEEK primidone 2017-0 Yes 50 mg = 1 Mem oria 50 mg oral 5-18 tab, PO, l tablet 05:43: BID, # 180 Tisha nn 15 tab, 1 Refill(s), Pharmacy: [facility] primidone Yes 50 mg = 1 Mem oria 50 mg oral 5-18 tab, PO, l tablet 05:43: BID, # 180 Tisha nn 15 tab, 1 Refill(s), Pharmacy: [facility] primidone Yes 50 mg = 1 Mem oria 50 mg oral 5-18 tab, PO, l tablet 05:43: BID, # 180 Tisha nn 15 tab, 1 Refill(s), Pharmacy: [facility] primidone 2017-2020- No 50mg Q.5D Take 50 mg M ethodi (MYSOLINE) 12-04-[address] 50 MG 00:00: 00:00 (two) Hospita tablet 00 :00 times a l day. primidone 2017-2020- No 50mg Q.5D Take 50 mg M [...] Rudy n 00 tab, 1 Refill(s), Pharmacy: [facility] primidone No 50 mg = 1 Mem oria 50 mg oral 2-21 tab, PO, l tablet 18:46: BID, # 60 Rudy n 00 tab, 1 Refill(s), Pharmacy: [facility] primidone No 50 mg = 1 Mem oria 50 mg oral 2-21 tab, PO, l tablet 18:46: BID, # 60 Rudy n 00 tab, 1 Refill(s), Pharmacy: [facility] propranolol No 80 mg = 1 M emoria 80 mg oral 2-12 tab, PO, l tablet 23:13: BID, # 60 Rudy n 00 tab, 3 Refill(s), Pharmacy: [facility] 768 propranolol 2018-0 No 80 mg = 1 M emoria 80 mg oral 2-12 tab, PO, l tablet 23:13: BID, # 60 Rudy n 00 tab, 3 Refill(s), Pharmacy: [facility] 768 propranolol 2018-0 No 80 mg = 1 M emoria 80 mg oral 2-12 tab, PO, l tablet 23:13: BID, # 60 Rudy n 00 tab, 3 Refill(s), Pharmacy: [facility] 8 Cephalexin 2017-0 Yes 500 mg = 1 M emoria [...] day, # 14 cap, 0 Refill(s) Cephalexin 0 Yes 500 mg = 1 M emoria 500 MG Oral 9-18 cap, PO, l Capsule 20:53: BID, X 7 Rudy n [Keflex] 00 day, # 14 cap, 0 Refill(s) Cephalexin 2016-0 Yes 500 mg = 1 M emoria 500 MG Oral 9-18 cap, PO, l Capsule 20:53: BID, X 7 Rudy n [Keflex] 00 day, # 14 cap, 0 Refill(s) Cephalexin 2016-0 Yes 500 mg = 1 M emoria 500 MG Oral 9-18 cap, PO, l Capsule 20:53: BID, X 7 Rudy n [Keflex] 00 day, # 14 cap, 0 Refill(s) Cephalexin 2017-0 Yes 500 mg = 1 M emoria [...] MRNA 2020-09-15 Completed Meth odist VACCINATION 00:00:00 [facility] PFIZER COVID-19 MRNA 2020-09-15 Completed Meth odist VACCINATION 00:00:00 [facility] PFIZER COVID-19 MRNA 2020-09-15 Completed Meth odist VACCINATION 00:00:00 [facility] PFIZER COVID-19 MRNA 2020-09-15 Completed Meth odist VACCINATION 00:00:00 Hospital PFIZER COVID-19 MRNA 2020-09-15 Completed Meth odist VACCINATION 00:00:00 Hospital PFIZER COVID-19 MRNA 2020-09-15 Completed Meth odist VACCINATION 00:00:00 Hospital PFIZER COVID-19 MRNA 2020-08-25 Completed Meth odist VACCINATION 00:00:00 [facility] PFIZER COVID-19 MRNA 2020-08-25 Completed Meth odist VACCINATION 00:00:00 Hospital PFIZER COVID-19 MRNA 2020-08-25 Completed Meth odist VACCINATION 00:00:00 [facility] PFIZER COVID-19 MRNA 2020-08-25 Completed Meth odist VACCINATION 00:00:00 [facility] PFIZER COVID-19 MRNA 2020-08-25 Completed Meth odist VACCINATION 00:00:00 [facility] PFIZER COVID-19 MRNA 2020-08-25 Completed Meth odist VACCINATION 00:00:00 [facility] FLUCELVAX QUAD PF 2019-04-[address] 00:00:00 Hospital Pneumococcal 2019-04-18 Completed [facility] 13-Valent 00:00:00 Hospi noy FLUCELVAX QUAD PF 2019-04-[address] 00:00:00 Hospital Pneumococcal 2019-04-18 Completed [facility] Conjugate 13-Valent 00:00:00 Hospi noy FLUCELVAX QUAD PF 2019-04-[address] 00:00:00 Hospital Pneumococcal 2019-04-18 Completed [facility] Conjugate 13-Valent 00:00:00 Hospi noy FLUCELVAX QUAD PF 2019-04-[address] 00:00:00 Hospital Pneumococcal 2019-04-18 Completed [facility] Conjugate 13-Valent 00:00:00 Hospi noy FLUCELVAX QUAD PF 2019-04-[address] 00:00:00 Hospital Pneumococcal 2019-04-18 Completed [facility] Conjugate 13-Valent 00:00:00 Hospi ony FLUCELVAX QUAD PF 2019-04-[address] 00:00:00 Hospital Pneumococcal 2019-04-18 Completed [facility] Conjug[facility] 13-[facility]ent 00:00:00 Hospi noy Vital Signs Vital Name Observation Time Observation Value Comments Source Systolic blood 2022-08-07 22:00:00 109 mm[Hg] Univer [facility] of pressure [facility] Diastolic blood 2022-08-07 22:00:00 81 mm[Hg] Unive rsity of pressure [facility] Heart rate 2022-08-07 22:00:00 80 /min [facility] Respiratory rate 2022-08-07 22:00:00 18 /min [facility] Oxygen saturation in 2022-08-07 22:00:00 93 /min [facility] Arterial blood by [facility] brennon Pulse oximetry Branch Body temperature 2022-08-07 19:03:00 36.61 Allison [facility] Body height 2022-08-07 19:03:00 170.2 cm [facility] Body weight 2022-08-07 19:03:00 95.255 kg [facility] BMI 2022-08-07 19:03:00 32.89 kg/m2 [facility] Systolic blood 2020-07-16 03:30:00 119 mm[Hg] Univer sity of pressure [facility] Diastolic blood 2020-07-16 03:30:00 84 mm[Hg] Unive rsity of pressure [facility] Heart rate 2020-07-16 03:30:00 87 /min [facility] Respiratory rate 2020-07-16 03:30:00 18 /min [facility] Oxygen saturation in 2020-07-16 03:30:00 94 /min [facility] Arterial blood by [facility] Pulse oximetry Branch Body temperature 2020-07-16 02:00:00 36.67 Allison [facility] Body weight 2020-07-16 00:18:00 95.255 kg [facility] Systolic blood 2020-07-16 03:30:00 119 mm[Hg] Univer sity of pressure [facility] Diastolic blood 2020-07-16 03:30:00 84 mm[Hg] Unive rsity of pressure [facility] Heart rate 2020-07-16 03:30:00 87 /min [facility] Respiratory rate 2020-07-16 03:30:00 18 /min [facility] Oxygen saturation in 2020-07-16 03:30:00 94 /min [facility] Arterial blood by [facility] Pulse oximetry Branch Body temperature 2020-07-16 02:00:00 36.67 Allison [facility] Body weight 2020-07-16 00:18:00 [facility]255 [facility] Height 2022-01-23 16:05:00 170.18 cm [facility] Squire Weight 2022-01-23 16:05:00 [facility] Sg BMI Calculated 2022-01-23 16:05:00 Memori al Squire Heart Rate 2021-07-25 19:15:00 [facility] Respitory Rate 2021-07-25 19:15:00 Memori al Sg Systolic (mm Hg) 2021-07-25 19:15:00 German rial Squire Diastolic (mm Hg) 2021-07-25 19:15:00 Mem orial Squire Height 2021-07-25 19:15:00 170.18 cm [facility] Squire Weight 2021-07-25 19:15:00 [facility] Squire BMI Calculated 2021-07-25 19:15:00 Memori al Sg Systolic blood 2020-11-15 15:06:00 123 mm[Hg] [facility] pressure Diastolic blood 2020-11-15 15:06:00 71 mm[Hg] [facility] pressure Heart rate 2020-11-15 15:06:00 70 /min [facility] Body temperature 2020-11-15 15:06:[address] [facility] Respiratory rate 2020-10-30 17:28:00 20 /min [facility] Oxygen saturation in 2020-10-30 17:28:00 96 /min [facility] Arterial blood by Pulse oximetry Body weight 2020-10-30 09:31:00 107.049 kg [facility] BMI 2020-10-30 09:31:00 36.96 kg/m2 [facility] Body height 2020-10-28 04:22:00 170.2 cm [facility] Systolic (mm Hg) 2020-02-09 17:13:00 German rial Sg Diastolic (mm Hg) 2020-02-09 17:13:00 Mem orial Squire Heart Rate 2020-02-09 17:13:00 [facility]g Height 2020-02-09 17:13:00 170.18 cm [facility] Weight 2020-02-09 17:13:00 [facility] S[facility] BMI Calculated 2020-02-09 17:13:00 Memori al Sg Systolic (mm Hg) 2019-08-11 17:52:00 German rial Squire Diastolic (mm Hg) 2019-08-11 17:52:00 Mem orial Squire Heart Rate 2019-08-11 17:52:00 [facility] Sg Height 2019-08-11 17:52:00 170.18 cm [facility] Weight 2019-08-11 17:52:00 [facility] S[facility] BMI Calculated 2019-08-11 17:52:00 Memori al Squire Systolic (mm Hg) 2019-05-05 16:11:00 German rial Squire Diastolic (mm Hg) 2019-05-05 16:11:00 Mem orial Sg Heart Rate 2019-05-05 16:11:00 [facility] Height 2019-05-05 16:11:00 170.18 cm [facility] Weight 2019-05-05 16:11:00 [facility] S[facility] BMI Calculated 2019-05-05 16:11:00 Memori al Squire BMI Calculated 2018-09-21 21:00:00 Memori al Sg Weight 2018-09-21 21:00:00 [facility] Sg Height 2018-09-21 21:00:00 170.18 cm [facility] Heart Rate 2018-09-21 21:00:00 [facility] Systolic (mm Hg) 2018-09-21 21:00:00 German rial Sg Diastolic (mm Hg) 2018-09-21 21:00:00 Mem orial Squire Weight 2018-02-19 19:45:00 [facility] Heart Rate 2018-02-19 19:45:00 [facility] Systolic (mm Hg) 2018-02-19 19:45:00 German rial Sg Diastolic (mm Hg) 2018-02-19 19:45:00 Mem orial Squire Weight 2018-01-12 18:57:00 [facility] Sg BMI Calculated 2018-01-12 18:57:00 Memori al Sg Height 2018-01-12 18:57:00 170.18 cm [facility] Systolic (mm Hg) 2018-01-12 18:57:00 German rial Sg Diastolic (mm Hg) 2018-01-12 18:57:00 Mem orial Squire Heart Rate 2018-01-12 18:57:00 [facility] S[facility] Weight 2017-12-10 18:08:00 [facility] S[facility] BMI Calculated 2017-12-10 18:08:00 Memori al Sg Height 2017-12-10 18:08:00 170.18 cm [facility] Heart Rate 2017-12-10 18:08:00 [facility] Systolic (mm Hg) 2017-12-10 18:08:00 German rial Squire Diastolic (mm Hg) 2017-12-10 18:08:00 Mem orial Sg Height 2017-12-08 17:45:00 170.18 cm [facility] BMI Calculated 2017-12-08 17:45:00 Memori al Sg Weight 2017-12-08 17:45:00 [facility] Heart Rate 2017-12-08 17:45:00 [facility] Systolic (mm Hg) 2017-12-08 17:45:00 German rial Sg Diastolic (mm Hg) 2017-12-08 17:45:00 Mem orial Sg Weight 2017-12-03 21:26:00 [facility] S[facility] Systolic (mm Hg) 2017-12-03 21:26:00 German rial Sg Diastolic (mm Hg) 2017-12-03 21:26:00 Mem orial Sg Heart Rate 2017-12-03 21:26:00 [facility] Sg Weight 2017-08-31 21:15:00 [facility] Systolic (mm Hg) 2017-08-31 21:15:00 German rial Sg Diastolic (mm Hg) 2017-08-31 21:15:00 Mem orial Sg Heart Rate 2017-08-31 21:15:00 [facility] Sg Weight 2017-07-24 19:44:00 [facility] Heart Rate 2017-07-24 19:44:00 [facility]g Systolic (mm Hg) 2017-07-24 19:44:00 German rial Sg Diastolic (mm Hg) 2017-07-24 19:44:00 Mem orial Squire Systolic (mm Hg) 2017-04-06 21:21:00 German rial Sg Diastolic (mm Hg) 2017-04-06 21:21:00 Mem orial Sg Temperature Oral (F) 2017-04-06 21:21:00 98 F [facility] Respitory Rate 2017-04-06 21:21:00 Memori al Sg Heart Rate 2017-04-06 21:21:00 Allison Bettencourt Height 2017-04-06 19:13:00 170.18 cm Allison Bettencourt BMI Calculated 2017-04-06 19:13:00 Rosa Chun Weight 2017-04-06 19:13:00 Allison Walkerann Heart Rate 2017-04-06 19:13:00 Allison Bettencourt Respitory Rate 2017-04-06 19:13:00 Rosa garcia Sg Systolic (mm Hg) 2017-04-06 19:13:00 German thomas Sg Diastolic (mm Hg) 2017-04-06 19:13:00 Mem orial Squire Procedures Procedure Date / Time Performing Clinician Source Performed XR CHEST 1 VW 2022-08-07 20:53:24 Yudi Doe [facility] TROPONIN I 2022-08-07 20:39:00 Yudi Doe [facility] COMP. METABOLIC PANEL 2022-08-07 20:39:00 Yudi Doe [facility] ([id number]) [facility] CBC WITH DIFF 2022-08-07 20:39:00 Yudi Doe [facility] RAPID INFLUENZA A/B 2022-08-07 20:39:00 Yudi Doe [facility] N-TERMINAL PRO-BNP 2022-08-07 20:39:00 Yudi Doe [facility] COVID-19 (ID NOW RAPID 2022-08-07 20:39:00 Yudi Doe [facility] TESTING) [facility] CONSENT/REFUSAL FOR 2022-08-07 18:52:02 Doctor Unassigned, [facility] DIAGNOSIS AND TREATMENT [facility] US DUPLEX AORTA INFERIOR 2020-11-15 15:04:00 Yariel Pradhan [facility] VENA CAVA LIMITED BASIC METABOLIC PANEL 2020-10-30 09:37:00 Jordy Toussaint [facility] HC COMPLETE BLD COUNT 2020-10-30 09:37:00 Jordy Toussaint [facility] W/AUTO DIFF MAGNESIUM LEVEL 2020-10-30 09:37:00 Jordy Toussaint Ho spital PHOSPHORUS LEVEL 2020-10-30 09:37:00 Jordy Toussaint ospital ESTIMATED GFR 2020-10-30 09:37:00 Toussaint, Jordy H. [facility] Ho spital BASIC METABOLIC PANEL 2020-10-29 07:51:00 Toussaint, Jordy H. [facility] HC COMPLETE BLD COUNT 2020-10-29 07:51:00 Toussaint, Jordy H. [facility] W/AUTO DIFF MAGNESIUM LEVEL 2020-10-29 07:51:00 Toussaint, Jordy H. [facility] spital PHOSPHORUS LEVEL 2020-10-29 07:51:00 Toussaint, Jordy H. [facility] ospital ESTIMATED GFR 2020-10-29 07:51:00 Toussaint, Jordy H. [facility] Ho spital ECG 12-LEAD 2020-10-29 07:22:33 Ras Rogers [facility] CT ABDOMEN PELVIS W 2020-10-28 22:21:07 Reuben Dutton [facility] CONTRAST POC GLUCOSE 2020-10-28 21:21:00 Toussaint, Jordy H. [facility] spital LIPASE LEVEL 2020-10-28 18:21:00 Toussaint, Jordy H. [facility] spital AMYLASE LEVEL 2020-10-28 18:21:00 Toussaint, Jordy H. [facility] spital POC GLUCOSE 2020-10-28 17:08:00 Toussaint, Jordy H. [facility] Ho spital XR ABDOMEN 1 VW PORTABLE 2020-10-28 16:10:13 Toussaint, Jordy H. [facility] US DUPLEX AORTA INFERIOR 2020-10-28 15:48:20 Agustin Garcia [facility] VENA CAVA LIMITED [facility] URINE CULTURE 2020-10-28 13:50:00 Toussaint, Jordy H. [facility] Ho spital XR CHEST 1 VW PORTABLE 2020-10-28 12:28:24 Otussaint, Jordy H. [facility] LACTIC ACID LEVEL 2020-10-28 10:38:00 Toussaint, Jordy H. [facility] BASIC METABOLIC PANEL 2020-10-28 07:38:00 Toussaint, Jordy H. [facility] HC COMPLETE BLD COUNT 2020-10-28 07:38:00 Toussaint, Jordy H. [facility] W/AUTO DIFF MAGNESIUM LEVEL 2020-10-28 07:38:00 Toussaint, [facility] spital PHOSPHORUS LEVEL 2020-10-28 07:38:00 Toussaint, [facility] ospital LACTIC ACID LEVEL 2020-10-28 07:38:00 [facility], [facility] ESTIMATED GFR 2020-10-28 07:38:00 Toussaint, [facility] URINALYSIS SCREEN AND 2020-10-28 07:33:00 Toussaint, [facility] MICROSCOPY, WITH REFLEX TO CULTURE ECG 12-LEAD 2020-10-28 05:07:33 [facility], AEROBIC & 2020-10-28 05:01:00 Toussaint, [facility] ANAEROBIC BLOOD CULTURE, AEROBIC & 2020-10-28 04:45:00 Toussaint, [facility] ANAEROBIC COVID-19 QUALITATIVE 2020-10-28 03:57:00 Toussaint, [facility] RT-PCR HC COMPLETE BLD COUNT 2020-10-28 03:57:00 Toussaint, [facility] W/AUTO DIFF PROTHROMBIN TIME WITH INR 2020-10-28 03:57:00 [facility], [facility] PARTIAL THROMBOPLASTIN 2020-10-28 03:57:00 Toussaint, [facility] TIME (PTT) COMPREHENSIVE METABOLIC 2020-10-28 03:57:00 Toussaint, [facility] PANEL LACTIC ACID LEVEL 2020-10-28 03:57:00 Toussaint, [facility] ESTIMATED GFR 2020-10-28 03:57:00 Toussaint, [facility] POC BLOOD GAS, ARTERIAL 2020-10-11 17:38:00 [facility] AND LYTES CV HYBRID OR FLUOROSCOPY 2020-10-11 17:33:48 [facility] ARTERIAL LINE 2020-10-11 17:27:06 Hitesh Ibanez ospital ME AN ELECTIVE 2020-10-11 17:17:00 Hitesh Ibanez ospital ENDOTRACHEAL AIRWAY VENOGRAPHY, UPPER OR 2020-10-11 17:09:00 Yariel Pradhan [facility] LOWER EXTREMITY, UNILATERAL PARTIAL THROMBOPLASTIN 2020-10-11 17:03:00 [facility] TIME (PTT) PROTHROMBIN TIME WITH INR 2020-10-11 17:03:00 Raina Leavitt [facility] ANKLE BRACHIAL INDEX 2020-10-11 14:41:[address] [facility] US DUPLEX ARTERIAL LOWER 2020-10-11 14:31:00 Yariel Pradhan [facility] EXTREMITY RIGHT URINE CULTURE 2020-10-08 18:37:00 Yariel Pradhan spital XR CHEST 2 VW 2020-10-08 18:06:[facility] COM[facility]TE [facility]LD [facility] 2020-10-08 17:35:00 [facility] W/AUTO DIFF ESTIMATED GFR 2020-10-08 17:35:00 Yariel Pradhan spital TYPE AND SCREEN 2020-10-08 17:35:00 [facility] COMPREHENSIVE METABOLIC 2020-10-08 17:35:00 [facility] PANEL URINALYSIS SCREEN AND 2020-10-08 17:07:00 [facility] MICROSCOPY, WITH REFLEX TO CULTURE ECG PRE/POST OP 2020-10-08 16:35:29 Yariel Pradhan spital COVID-19 QUALITATIVE 2020-10-08 16:26:00 [facility] RT-PCR US DUPLEX VENOUS LOWER 2020-08-21 22:31:42 [facility] RIGHT TROPONIN I 2020-07-16 00:56:00 Rip [facility] [place] [facility] HEPATIC FUNCTION PANEL 2020-07-16 00:56:00 Rip Nova [facility] ([id number]) (ALB,T.PRO,BILI Medical Branch T,BU/BC,ALT,AST,ALK PHOS) BASIC METABOLIC PANEL 2020-07-16 00:56:00 Rip Nova [facility] (NA, K, CL, CO2, GLUCOSE, Medica l Branch BUN, CREATININE, CA) CBC WITH DIFF 2020-07-16 00:56:00 Rip Nova [facility] PROTHROMBIN TIME / INR 2020-07-16 00:56:00 Rip Nova [facility] ACTIVATED PARTIAL 2020-07-16 00:56:00 Rip [facility] THRMPLAS FRANCIA [facility] N-TERMINAL PRO-BNP 2020-07-16 00:56:00 Rip [facility] COVID-19 (ID NOW RAPID 2020-07-16 00:56:00 Rip Nova [facility] TESTING) Medical Branch XR CHEST 1 VW 2020-07-16 00:44:06 Rip Nova [facility] NOTICE OF PRIVACY 2020-07-16 00:08:40 Doctor Unassigned, [facility] PRACTICES [facility] CONSENT/REFUSAL FOR 2020-07-16 00:08:15 Doctor Unassigned, [facility] DIAGNOSIS AND TREATMENT [facility] Plan of Care Planned Activity Planned Date Details Comments Source Future Scheduled 2022-07-30 Hepatitis C screening [facility] Test 08:01:30 (procedure) [code = 558923467] Future Scheduled 2022-07-30 COLONOSCOPY SCREENING [facility] Test 08:01:30 [code = COLONOSCOPY SCREENING] Future Scheduled 2022-07-30 SHINGLES VACCINES (1 [facility] Test 08:01:30 of 2) [code = SHINGLES VACCINES (1 of 2)] Future Scheduled 2022-07-30 65+ [facility]OCOCCAL [facility] Test 08:01:30 VACCINE (2 - PPSV23 if available, else PCV20) [code = 65+ PNEUMOCOCCAL VACCINE (2 - PPSV23 if available, else PCV20)] Future Scheduled 2022-07-30 COVID-19 VACCINE (3 - [facility] Test 08:01:30 Booster for Pfizer series) [code = COVID-19 VACCINE (3 - Booster for Pfizer series)] Future Scheduled 2022-07-30 INFLUENZA VACCINE [facility] Test 08:01:30 [code = INFLUENZA VACCINE] Future Scheduled 2022-07-30 Hepatitis C screening [facility] Test 08:01:30 (procedure) [code = 918883315] Future Scheduled 2022-07-30 COLONOSCOPY SCREENING [facility] Test 08:01:30 [code = COLONOSCOPY SCREENING] Future Scheduled 2022-07-30 SHINGLES VACCINES (1 [facility] Test 08:01:30 of 2) [code = SHINGLES VACCINES (1 of 2)] Future Scheduled 2022-07-30 65+ [facility]OCOCCAL [facility] Test 08:01:30 VACCINE (2 - PPSV23 if available, else PCV20) [code = 65+ PNEUMOCOCCAL VACCINE (2 - PPSV23 if available, else PCV20)] Future Scheduled 2022-07-30 COVID-19 VACCINE (3 - Me [facility] Test 08:01:30 Booster for Pfizer series) [code = COVID-19 VACCINE (3 - Booster for Pfizer series)] Future Scheduled 2022-07-30 INFLUENZA VACCINE [facility] Test 08:01:30 [code = INFLUENZA VACCINE] Future Scheduled 2022-07-02 Hepatitis C screening [facility] Test 11:52:24 (procedure) [code = 769695342] Future Scheduled 2022-07-02 COLONOSCOPY SCREENING [facility] Test 11:52:24 [code = COLONOSCOPY SCREENING] Future Scheduled 2022-07-02 SHINGLES VACCINES (1 [facility] Test 11:52:24 of 2) [code = SHINGLES VACCINES (1 of 2)] Future Scheduled 2022-07-02 65+ PNEUMOCOCCAL [facility] Test 11:52:24 VACCINE (2 - PPSV23 if available, else PCV20) [code = 65+ PNEUMOCOCCAL VACCINE (2 - PPSV23 if available, else PCV20)] Future Scheduled 2022-07-02 COVID-19 VACCINE (3 - Me [facility] Test 11:52:24 Booster for Pfizer series) [code = COVID-19 VACCINE (3 - Booster for Pfizer series)] Future Scheduled 2022-07-02 INFLUENZA VACCINE [facility] Test 11:52:24 [code = INFLUENZA VACCINE] Future Scheduled 2021-07-24 Hepatitis C screening [facility] Test 05:00:31 (procedure) [code = 967983354] Future Scheduled 2021-07-24 COLONOSCOPY SCREENING [facility] Test 05:00:31 [code = COLONOSCOPY SCREENING] Future Scheduled 2021-07-24 SHINGLES VACCINES (#1) [facility] Test 05:00:31 [code = SHINGLES VACCINES (#1)] Future Scheduled 2021-07-24 65+ [facility] Test 05:00:31 VACCINE (1 of 2 - PPSV23) [code = 65+ PNEUMOCOCCAL VACCINE (1 of 2 - PPSV23)] Future Scheduled 2021-07-24 INFLUENZA VACCINE [facility] Test 05:00:31 [code = INFLUENZA VACCINE] Future Scheduled 2021-07-24 COVID-19 VACCINE (3 - [facility] Test 05:00:31 Booster for Pfizer series) [code = COVID-19 VACCINE (3 - Booster for Pfizer series)] Future Scheduled 2021-07-24 Hepatitis C screening Me [facility] Test 05:00:31 (procedure) [code = 222234554] Future Scheduled 2021-07-24 COLONOSCOPY SCREENING Me [facility] Test 05:00:31 [code = COLONOSCOPY SCREENING] Future Scheduled 2021-07-24 SHINGLES VACCINES (#1) M [facility] Test 05:00:31 [code = SHINGLES VACCINES (#1)] Future Scheduled 2021-07-24 65+ P[facility]UMOCOCCAL [facility] Test 05:00:31 VACCINE (1 of 2 - PPSV23) [code = 65+ PNEUMOCOCCAL VACCINE (1 of 2 - PPSV23)] Future Scheduled 2021-07-24 INFLUENZA VACCINE [facility] Test 05:00:31 [code = INFLUENZA VACCINE] Future Scheduled 2021-07-24 COVID-19 VACCINE (3 - Me [facility] Test 05:00:31 Booster for Pfizer series) [code = COVID-19 VACCINE (3 - Booster for Pfizer series)] Future Scheduled DIABETES: RETINAL EYE Me [facility] Test EXAM [code = DIABETES: RETINAL EYE EXAM] Future Scheduled DIABETIC FOOT EXAM [facility] Test [code = DIABETIC FOOT EXAM] Future Scheduled URINE MICROALBUMIN [facility] Test [code = URINE MICROALBUMIN] Future Scheduled Hepatitis C screening Me [facility] Test (procedure) [code = 067391098] Future Scheduled COLONOSCOPY SCREENING Me [facility] Test [code = COLONOSCOPY SCREENING] Future Scheduled SHINGLES VACCINES (#1) [facility] Test [code = SHINGLES VACCINES (#1)] Future Scheduled 65+ PNEUMOCOCCAL [facility] Test VACCINE (1 of 2 - PPSV23) [code = 65+ PNEUMOCOCCAL VACCINE (1 of 2 - PPSV23)] Future Scheduled INFLUENZA VACCINE [facility] Test [code = INFLUENZA VACCINE] Encounters Start End Encounter Admission Attending Care Care Encounter Source Date/Time Date/Time Type Type Clinicians Facility Department ID 2022-08-13 Outpatient [facility] CAR [id number] [facility] 05:45:52 , NOE 2022-02-13 Outpatient [facility] [id number] [place] 05:20:[id number] [place] [address] 2022-02-12 Outpatient [facility] [id number] [place] 17:33:03 [id number] [facility] 2021-10-24 Outpatient [facility] [id number] [place] 01:03:20 , NOE [id number] [facility] 2021-07-18 Outpatient [facility] [id number] [place] 01:03:13 , NOE [facility] 2018-11-23 Outpatient [facility] CAR 7507 [facility] 08:26:33 2022-08-07 2022-08-07 Emergency [facility] [id number] [facility] 13:05:00 16:31:00 YUDI islas [facility] 2022-08-07 2022-08-07 Emergency Brook [facility] 1.2.840.114 [id number] Univers 13:05:00 16:31:00 Yudi RAMIREZ 350.1.13.10 ity of [place] 4.2.7.2.686 [facility] [phone] [facility] 084 Branch 2022-08-07 2022-08-07 Orders Doctor KORTNEY 1.2.840.114 [id number] Univers 00:00:00 00:00:00 Only Unassigned, DEMETRIO 350.1.13.10 ity of [facility] 4.2.7.[address] [place] [address] [phone] [facility] 009 Branch 2022-01-23 2022-01-24 Outpatient nullFlavo [id number] Memoria 18:49:00 04:59:00 r Community 14 l Cardiology Tisha chayo Thompson 2022-01-23 2022-01-24 Outpatient nullFlavo [id number] Memoria 18:49:00 04:59:00 r [facility] 14 l Cardiology Tisha nn Donna 2022-01-23 2022-01-23 Outpatient Thiagarajan [facility] [id number] 13:49:00 23:59:00 , Noe 14 New 2022-01-23 2022-01-23 Outpatient Thiagarajan [facility] [id number] 13:49:00 23:59:00 , Noe 14 New 2022-01-23 2022-01-23 Outpatient THIAGARAJAN [facility] CAR 751 [id number] [facility] 13:49:00 23:59:00 , NOE 2022-01-23 2022-01-23 Office THIAGARAJAN EXT [facility] 1.2.840.114 [id number] [place] 11:20:00 11:20:00 Visit , NOE TARIQ 350.1.13.58 [facility] 9.2.7.2.686 [phone] [id number] 2021-07-25 2021-07-26 Outpatient nullFlavo [id number] Mem[facility] 18:39:00 05:59:00 r [facility] 13 l Cardiology Tisha Donna 2021-07-25 2021-07-26 Outpatient nullFlavo [id number] Memoria 18:39:00 05:59:00 r [facility] 13 l Cardiology Tisha Donna 2021-07-25 2021-07-26 Outpatient nullFlavo [id number] Memoria 18:39:00 05:59:00 r [facility] 13 l Cardiology Tisha Donna 2021-07-25 2021-07-25 Outpatient Thiagarajan [facility] [id number] 12:39:00 23:59:00 , Noe 13 New 2021-07-25 2021-07-25 Outpatient Thiagarajan [facility] [id number] 12:39:00 23:59:00 , Noe 13 New 2021-07-25 2021-07-25 Outpatient THIAGARAJAN [facility] CAR 751 [id number] [facility] 12:39:00 23:59:00 , NOE 2020-11-27 2020-11-27 Telephone Ernst, 1.2.840.1 [id number] [id number] [facility] 00:00:00 00:00:00 [address] Cordova [address].1.[address] 3.430.2.7 Hospit a .3.788430 l .8 2020-11-15 2020-11-15 Office Carolynn, 1.2.840.1 [id number] [facility] 09:46:20 10:31:38 Visit Yariel 74792.1.[address] 3.430.2.7 Hospit a .3.036647 l .8 2020-11-15 2020-11-15 Outpatient CAROLYNN, [facility] [id number] [place] 00:00:00 00:00:00 YARIEL [address] 2020-11-15 2020-11-15 Travel 1.2.840.1 1.2.150.362 2946 [id number] [facility] 00:00:00 00:00:[address] 3.430.2.7 0.2.7.3.698 Ho spita .3.628869 084.8 l .8 2020-10-27 2020-10-30 [facility] 1.2.840.1 [id number] [id number] Methodi 22:09:00 14:42:[address] 00712.1.[address] 3.430.2.7 Hospit a .3.963768 l .8 2020-10-23 2020-10-23 Telephone Barron, 1.2.840.1 [id number] [id number] [facility] 00:00:00 00:00:[address] 3.430.2.7 Hospit a .3.519065 l .8 2020-10-12 2020-10-12 Telephone Ernst, 1.2.840.1 [id number] 2099 [id number] [facility] 00:00:00 00:00:00 Marie Cordova 10369.1.[address] 3.430.2.7 Hospit a .3.791426 l .8 2020-10-112020-10-11 [facility] Bism[place], 1.2.840.1 [id number] 2100 [id number] Methodi 09:53:00 17:25:00 Encounter Yariel 26224.1.[address] 3.430.2.7 Hospit a .3.315014 l .8 2020-10-11 2020-10-11 Surgery [place], 1.2.840.1 [id number] 06740 Methodi 12:00:00 14:30:[address] 3.430.2.7 Hospit a .3.284193 l .8 2020-10-11 2020-10-11 Anesthesia Tal Ríos 1.2.840.1 1043 [id number] [id number] Methodi 12:09:00 14:27:00 Event JosueMaryu 17096.1.[address] 3.430.2.7 Hospit a .3.832904 l .8 2020-10-11 2020-10-11 Office Bismuth, 1.2.840.1 [id number] 02461 47398 [facility]i 12:33:48 12:38:48 Visit Yariel 47916.1.[address] 3.430.2.7 Hospit a .3.561986 l .8 2020-10-11 2020-10-11 Office [place]ismuth, 1.2.840.1 [id number] 49153 [facility] 09:10:55 09:41:46 Visit Yariel 18341.1.[address] 3.430.2.7 Hospit a .3.885777 l .8 2020-10-11 2020-10-11 Outpatient BISMUTH, [facility] [id number] [place] 00:00:00 00:00:00 YARIEL [address] 2020-10-11 2020-10-11 Outpatient BISMUTH, [facility] [id number] [place] 00:00:00 00:00:00 YARIEL [address] 2020-10-11 2020-10-11 Travel 1.2.840.1 1.2.870.365 0767 779336 Methodi 00:00:00 00:00:[address] 3.430.2.7 0.2.7.3.698 Ho spita .3.164413 084.8 l .8 2020-10-08 2020-10-08 [facility] 1.2.840.1 [id number] 2 [id number] Methodi 12:52:24 23:59:00 Encounter Denzel 91625.1.[address] 3.430.2.7 Hospit a .3.443473 l .8 2020-10-08 2020-10-08 Pre-Admiss Bismuth, 1.2.840.1 [id number] 21 [id number] Methodi 11:56:39 12:56:39 ion Yariel 47142.1.[address] Testing 3.430.2.7 Hospit a .3.466649 l .8 2020-10-08 2020-10-08 Outpatient BISMUTH, [facility] [id number] [place] 00:00:00 00:00:00 YARIEL [address] 2020-10-08 2020-10-08 Travel 1.2.840.1 1.2.388.834 4024 [id number] [facility]i 00:00:00 00:00:[address] 3.430.2.7 0.2.7.3.698 Ho spita .3.684222 084.8 l .8 2020-10-02 2020-10-02 Orders Ablola, 1.2.840.1 [id number] 1762 [facility]i 00:00:00 00:00:00 Only Hanna 65966.1.[address] 3.430.2.7 Hospit a .3.022199 l .8 2020-09-28 2020-09-28 Prep for Dukes, 1.2.840.1 [id number] 02105 59581 [facility] 00:00:00 00:00:00 Surgery Marie M 83492.1.[address] 3.430.2.7 Hospit a .3.826896 l .8 2020-09-28 2020-09-28 Telephone Ernst, 1.2.840.1 [id number] 2099 [id number] [facility] 00:00:00 00:00:00 Marie Cordova 55978.1.[address] 3.430.2.7 Hospit a .3.979211 l .8 2020-09-27 2020-09-27 Telemedici Carolynn, 1.2.840.1 [id number] Methodi 08:25:25 08:42:51 [address]64.1.[address] 3.430.2.7 Hospit a .3.379160 l .8 2020-09-15 2020-09-15 Clinical Kimberly, 1.2.840.1 [id number] [id number] [facility] 11:11:28 11:15:21 Support Michael 03825.1.[address] P. 3.430.2.7 Hospit a .3.271090 l .8 2020-09-11 2020-09-11 Office Barbrajovi, 1.2.840.1 [id number] 1794 [facility]i 13:00:15 13:47:40 Visit Doreen 79224.1.[address] 3.430.2.7 Hospit a .3.802062 l .8 2020-09-11 2020-09-11 Travel 1.2.840.1 1.2.392.461 2173 221501 Methodi 00:00:00 00:00:[address] 3.430.2.7 0.2.7.3.698 Ho spita .3.118481 084.8 l .8 2020-08-30 2020-08-30 Office Barrypazchano, 1.2.840.1 [id number] 51440 64311 Methodi 11:30:06 12:52:40 Visit Yariel 88831.1.[address] 3.430.2.7 Hospit a .3.854227 l .8 2020-08-30 2020-08-30 Travel 1.2.840.1 1.2.796.649 7193 676322 Methodi 00:00:00 00:00:[address] 3.430.2.7 0.2.7.3.698 Ho spita .3.425557 084.8 l .8 2020-08-25 2020-08-25 Clinical 1.2.840.1 [id number] 89637 Methodi 12:03:53 12:13:[address] 3.430.2.7 Hospit a .3.857180 l .8 2020-08-25 2020-08-25 Travel 1.2.840.1 1.2.640.381 3042 674553 Methodi 00:00:00 00:00:[address] 3.430.2.7 0.2.7.3.698 Ho spita .3.242070 084.8 l .8 2020-08-21 2020-08-21 [facility] 1.2.840.1 [id number] Methodi 16:26:08 16:35:25 Visit Edmundo post 57206.1.[address] 3.430.2.7 Hospit a .3.111130 l .8 2020-08-21 2020-08-21 Outpatient [facility] [id number] [address] [place] [address] 00:00:00 00:00:[address] 2020-08-21 2020-08-21 Travel 1.2.840.1 1.2.529.800 4463 436376 [facility]i 00:00:00 00:00:[address] 3.430.2.7 0.2.7.3.698 Ho spita .3.292867 084.8 l .8 2020-08-20 2020-08-20 Telephone Dukes, 1.2.840.1 [id number] 2099 [id number] [facility]i 00:00:00 00:00:00 Marie Cordova 50817.1.[address] 3.430.2.7 Hospit a .3.657200 l .8 2020-08-14 2020-08-14 Telephone Ernst, 1.2.840.1 [id number] 2100 710496 [facility]i 00:00:00 00:00:00 Marie Cordova 76286.1.[address] 3.430.2.7 Hospit a .3.983635 l .8 2020-07-15 2020-07-15 Emergency [facility] 1.2.582.325 0159 6496 18:28:00 23:48:00 Rip [place] 350.1.13.10 [place] 4.2.7.2.686 [place] [phone] [facility] 2020-07-15 2020-07-15 Emergency [facility] 1.2.828.266 4857 6496 Univers 18:28:00 23:48:00 Rip [place] 350.1.13.10 i ty of [place] 4.2.7.2.686 [facility] [phone] [address] 2020-07-15 2020-07-15 Emergency X [facility] ERT [id number] Univers 18:28:00 23:48:00 RIP islas [facility] 2020-06-25 2020-06-25 Refill Ekgregg, 1.2.840.1 [id number] 1181 Methodi 00:00:00 00:00:[address] 3.430.2.7 Hospit a .3.193417 l .8 2020-02-14 2020-02-14 Outpatient EKERUO, [facility] [id number] [place] 00:00:00 00:00:00 DOREEN [address] 2020-02-14 2020-02-14 Outpatient EKERUO, [facility] [id number] [place] 00:00:00 00:00:00 DOREEN [address] 2020-02-09 2020-02-10 Outpatient nullFlavo [id number] Memoria 16:27:00 04:59:00 r Community 10 l Cardiology Tisha chayo Thompson 2020-02-09 2020-02-10 Outpatient nullFlavo [id number] Memoria 16:27:00 04:59:00 r Community 10 l Cardiology Tisha nn Donna 2020-02-09 2020-02-10 Outpatient nullFlavo [id number] Memoria 16:27:00 04:59:00 r Community 10 l Cardiology Tisha nn Donna 2020-02-09 2020-02-09 Outpatient Thiagarajan [facility] [id number] 11:27:00 23:59:00 , Noe White New 2020-02-09 2020-02-09 Outpatient Thiagarajan [facility] [id number] 11:27:00 23:59:00 , Noe 10 New 2020-02-09 2020-02-09 Outpatient THIAGARAJAN [facility] CAR 751 0 [facility] 11:27:00 11:27:00 , NOE 2019-09-27 2019-09-27 Outpatient [facility] [id number] [place] 00:00:00 00:00:00 EDMUNDO POST [address] 2019-09-21 2019-09-21 Outpatient [facility] [id number] [place] 00:00:00 00:00:00 EDMUNDO POST [address] 2019-09-21 2019-09-21 Outpatient [facility] [id number] [id number] [place] 00:00:00 00:00:00 EDMUNDO POST [address] 2019-08-11 2019-08-12 Outpatient nullFlavo [id number] Memoria 17:10:00 05:59:00 r Community 09 l Cardiology Tisha nn Donna 2019-08-11 2019-08-12 Outpatient nullFlavo [id number] [facility]oria 17:10:00 05:59:00 r Community 09 l Cardiology Tisha nn Donna 2019-08-11 2019-08-12 [place] [id number] Memoria 17:10:00 05:59:00 r Community 09 l Cardiology Tisha nn Donna 2019-08-11 2019-08-11 Outpatient Thiagarajan [facility] [id number] 11:10:00 23:59:00 , Noe Franco New 2019-08-11 2019-08-11 Outpatient Thiagarajan [facility] [id number] 11:10:00 23:59:00 Noe 09 New 2019-08-11 2019-08-11 Outpatient MH CAR 7509 [facility] 11:10:00 11:10:00 2019-07-08 2019-07-09 Emergency KORTNEY CLARKE [facility] 064 [id number] [place] 00:00:00 00:00:00 847 Method i 2019-07-04 2019-07-05 Outpatient CAROLYNN [facility] [id number] [place] 00:00:00 00:00:00 YARIEL [address] 2019-05-31 2019-05-31 Outpatient CAROLYNN, [facility] 021 [id number] [place] 00:00:00 00:00:00 YARIEL 271 Method i 2019-05-30 2019-05-30 Outpatient ATHANASSIOU [facility] [id number] [id number] [place] 00:00:00 00:00:00 , DENZEL 044 Meth hiren 2019-05-05 2019-05-06 [place] [id number] Mem[facility] 15:37:00 04:59:00 r Community 08 l Cardiology Tisha [facility] 2019-05-05 2019-05-06 [place] [id number] Memoria 15:37:00 04:59:00 r Community 08 l Cardiology Tisha nn Donna 2019-05-05 2019-05-06 [place] [id number] [facility] 15:37:00 04:59:00 r Community 08 l Cardiology Tisha nn Donna 2019-05-05 2019-05-05 Outpatient Thiagarajan [facility] [id number] 10:37:00 23:59:00 , Noe [facility] 2019-05-05 2019-05-05 Outpatient Thiagarajan [facility] [id number] 10:37:00 23:59:00 , Noe [facility] 2019-05-05 2019-05-05 Outpatient [facility] CAR 7508 [facility] 10:37:00 10:37:00 2019-05-03 2019-05-04 Emergency SILVERMAN, JERMAIN [facility] 064 [id number] [place] 00:00:00 00:00:[address] 2019-04-22 2019-04-27 Inpatient SHEIKH [facility] [id number] [place] 00:00:00 00:00:00 XENA 995 Method i 2019-04-11 2019-04-18 Inpatient PROSPER, [facility] [id number] [place] 00:00:00 00:00:00 TYESHA 756 Katie winslow 2019-03-17 2019-04-08 Wound Care nullFlavo [facility] 8538 [id number] Memoria 15:00:00 21:08:00 r Sg 02 [facility] 2019-03-17 2019-04-08 Wound Care [facility][note 3]o [facility] 8538 [id number] Memoria 15:00:00 21:08:00 r Sg 02 [facility] 2019-03-17 2019-04-08 Wound Care [facility] 8538 [id number] Memoria 15:00:00 21:08:00 r Sg 02 [facility] 2019-03-17 2019-04-08 Outpatient Tsinopoulos 2.16.840. 2.16.840. 1. [id number] 10:00:00 16:08:00 , Ebba 1.923925. 237448.3.61 02 Elly 3.615.15 5.15 [facility] 2019-03-17 2019-04-08 Outpatient Tsinopoulos 2.16.840. 2.16.840. 1. [id number] 10:00:00 16:08:00 , Ebba 1.653452. 014584.3.61 02 Elly 3.615.15 5.15 [facility] 2019-02-15 2019-03-17 Wound Care [facility][note 3]o [facility] 8538 [id number] Memoria 20:00:00 04:59:00 r Sg 01 c[facility]den [facility] 2019-02-15 2019-03-17 Wound Care [facility][note 3]o [facility] 8538 [id number] Memoria 20:00:00 04:59:00 debbie Bettencourt 01 cayden [facility] 2019-02-15 2019-03-17 Wound Care [facility][note 3]o [facility] 8538 [id number] Memoria 20:00:00 04:59:00 debbie Bettencourt 01 cayden [facility] 2019-02-15 2019-03-16 Outpatient Tsinopoulos 2.16.840. 2.16.840. 1. [id number] 15:00:00 23:59:00 , Ebba 1.405213. 299866.3.61 01 Elly 3.615.15 5.15 [facility] 2019-02-15 2019-03-16 Outpatient Tsinopoulos 2.16.840. 2.16.840. 1. [id number] 15:00:00 23:59:00 , Ebba 1.726549. 671990.3.61 01 Elly 3.615.15 5.15 [facility] 2019-01-13 2019-02-12 Wound Care [facility] 8538 [id number] Memoria 17:56:00 04:59:00 r Sg 00 [facility] 2019-01-13 2019-02-12 Wound Care [facility] 8538 [id number] Memoria 17:56:00 04:59:00 r Sg 00 [facility] 2019-01-13 2019-02-12 Wound Care [facility] 8538 [id number] Memoria 17:56:00 04:59:00 r Squire 00 [facility] 2019-01-13 2019-02-11 Outpatient Tsinopoulos 2.16.840. 2.16.840. 1. [id number] 12:56:00 23:59:00 , Ebba [id number]. [id number] 00 Elly 3.615.15 5.15 [facility] 2019-01-13 2019-02-11 Outpatient Tsinopoulos 2.16.840. 2.16.840. 1. [id number] 12:56:00 23:59:00 , Ebba [id number]. [id number] 00 Elly 3.615.15 5.15 [facility] 2019-01-21 2019-01-22 Outpt Diag nullFlavo [facility] [id number] Memoria 19:21:00 04:59:00 Services r Outpatient 02 l Imaging - [facility] 2019-01-21 2019-01-22 Outpt Diag nullFlavo [facility] [id number] Memoria 19:21:00 04:59:00 Services r Outpatient 02 l Imaging - [facility] 2019-01-21 2019-01-22 Outpt Diag nullFlavo [facility] [id number] Memoria 19:21:00 04:59:00 Services r Outpatient 02 l Imaging - [facility] 2019-01-21 2019-01-21 Outpatient Tsinopoulos 2.16.840. 2.16.840. 1. [id number] 14:21:00 23:59:00 , Ebba [id number]. [id number] 02 Lely 3.615.64 5.64 [facility] 2019-01-21 2019-01-21 Outpatient Tsinopoulos 2.16.840. 2.16.840. 1. [id number] 14:21:00 23:59:00 , Ebba [id number]. [id number] 02 Elly [id number] 5.64 [facility] 2018-11-18 2018-11-19 Outpatient nullFlavo [id number] Memoria 13:52:00 04:59:00 r Community 06 l Cardiology Tisha [facility] 2018-11-18 2018-11-19 Outpatient nullFlavo [id number] Memoria 13:52:00 04:59:00 r Community 06 l Cardiology Tisha [facility] 2018-11-18 2018-11-19 Outpatient nullFlavo [id number] Memoria 13:52:00 04:59:00 r Community 06 l Cardiology Tisha [facility] 2018-11-18 2018-11-18 Outpatient Thiagaluis [facility] [id number] 08:52:00 23:59:00 , Noe [facility] 2018-11-18 2018-11-18 [facility] [id number] 08:52:00 23:59:00 , Noe [facility] 2018-11-18 2018-11-18 Outpatient [facility] [id number] [facility] 08:52:00 08:52:00 2018-09-21 2018-09-22 [place] [id number] Mem[place] 19:55:00 05:59:00 r Community 04 l Cardiology [facility] 2018-09-21 2018-09-22 [place] [id number] Mem[facility] 19:55:00 05:59:00 r Community 04 l Cardiology [facility] 2018-09-21 2018-09-22 [place] [id number] Memoria 19:55:00 05:59:00 r Community 04 l Cardiology [facility] 2018-09-21 2018-09-21 Outpatient Thiagaramarina [facility] [id number] 13:55:00 23:59:00 , Noe Cristofer [facility] 2018-09-21 2018-09-21 Outpatient Thiagaluis [facility] [id number] 13:55:00 23:59:00 , Noe Cristofer [facility] 2018-06-22 2018-06-22 Ambulatory nullFlavo MNA [id number] Memoria 19:00:00 19:00:00 Pre-Reg r Neuroscienc 09 l e Donna Sg 2018-06-22 2018-06-22 Ambulatory nullFlavo MNA [id number] Memoria 19:00:00 19:00:00 Pre-Reg r Neuroscienc 09 l e Donna Sg 2018-06-22 2018-06-22 Outpatient MHIE MHIE [id number] Memoria 13:00:00 13:00:00 09 cayden Bettencourt 2018-06-22 2018-06-22 Outpatient MHIE MHIE [id number] Memoria 13:00:00 13:00:00 09 cayden Bettencourt 2018-06-22 2018-06-22 Outpatient MHMISCHER MHMISCHER [id number] 13:00:00 13:00:00 09 2018-06-22 2018-06-22 Outpatient MHIE MHIE [id number] Memoria 13:00:00 13:00:00 09 cayden Bettencourt 2018-06-22 2018-06-22 Outpatient MHMISCHER MHMISCHER [id number] 13:00:00 13:00:00 2018-03-03 2018-03-05 Phone nullFlavo MNA [id number] Memoria 18:18:00 04:59:59 Message r Neuroscienc 09 l e Donna Bettencourt 2018-03-03 2018-03-05 Phone nullFlavo MNA [id number] Memoria 18:18:00 04:59:59 Message r Neuroscienc 09 l e Donna Bettencourt 2018-03-03 2018-03-05 Phone nullFlavo MNA [id number] Memoria 18:18:00 04:59:59 Message r Neuroscienc 09 l e Donna Bettencourt 2018-03-03 2018-03-04 Outpatient MHMISCHER MHMISCHER [id number] 13:18:00 23:59:59 09 2018-03-03 2018-03-04 Outpatient MHMISCHER MHMISCHER [id number] 13:18:00 23:59:59 09 2018-02-19 2018-02-20 Outpatient nullFlavo MNA [id number] Memoria 19:30:00 04:59:59 r Neuroscienc 07 l e Donna Sg 2018-02-19 2018-02-20 Outpatient nullFlavo MNA [id number] Memoria 19:30:00 04:59:59 r Neuroscienc 07 l e Donna Sg 2018-02-19 2018-02-19 Outpatient MHMISCHER MHMISCHER [id number] 14:30:00 23:59:59 2018-02-19 2018-02-19 Outpatient MHMISCHER MHMISCHER [id number] 14:30:00 23:59:59 07 2018-02-19 2018-02-19 Outpatient MHIE MHIE [id number] Memoria 14:30:00 14:30:00 07 cayden Bettencourt 2018-02-19 2018-02-19 Outpatient MHIE MHIE [id number] Memoria 14:30:00 14:30:00 07 cayden Bettencourt 2018-02-19 2018-02-19 Outpatient MHIE MHIE [id number] Memoria 14:30:00 14:30:00 07 cayden Bettencourt 2018-01-12 2018-01-13 Outpatient nullFlavo [id number] Memoria 17:59:00 04:59:00 r Community 02 l Holly Thompson 2018-01-12 2018-01-13 Outpatient nullFlavo [id number] Memoria 17:59:00 04:59:00 r Community 02 l Cardiology Tisha nn [place] 2018-01-12 2018-01-13 Outpatient nullFlavo [id number] Memoria 17:59:00 04:59:00 r Community 02 l Cardiology Tisha [facility] 2018-01-12 2018-01-12 [facility] [id number] 12:59:00 23:59:00 , Noe 02 [facility] 2018-01-12 2018-01-12 [facility] [id number] 12:59:00 23:59:00 , Noe [facility] 2017-12-31 2018-01-01 Outpatient nullFlavo [facility] [id number] Memoria 11:40:00 04:59:00 r Squire 03 [facility] 2017-12-31 2018-01-01 Outpatient nullFlavo [facility] [id number] Memoria 11:40:00 04:59:00 r Squire 03 [facility] 2017-12-31 2018-01-01 Outpatient nullFlavo [facility] [id number] Memoria 11:40:00 04:59:00 r Squire 03 [facility] 2017-12-31 2017-12-31 Outpatient [place] [id number] 06:40:00 23:59:00 , Noe [facility] 2017-12-31 2017-12-31 Outpatient [place] [id number] 06:40:00 23:59:00 , Noe 03 [facility] 2017-12-28 2017-12-28 Ambulatory nullFlavo MNA [id number] Memoria 17:30:00 17:30:00 Pre-Reg r Neurosurger 08 l y [place] [facility] 2017-12-28 2017-12-28 Ambulatory nullFlavo MNA [id number] Memoria 17:30:00 17:30:00 Pre-Reg r Neurosurger 08 l y [place] [facility] 2017-12-28 2017-12-28 Outpatient [facility] [id number] Memoria 12:30:00 12:30:00 08 cayden Bettencourt 2017-12-28 2017-12-28 Outpatient MHIE MHIE [id number] Memoria 12:30:00 12:30:00 08 cayden Bettencourt 2017-12-28 2017-12-28 Outpatient MHMISCHER MHMISCHER [id number] 12:30:00 12:30:00 08 2017-12-28 2017-12-28 Outpatient MHMISCHER MHMISCHER [id number] 12:30:00 12:30:00 08 2017-12-28 2017-12-28 Outpatient MHIE MHIE [id number] Memoria 12:30:00 12:30:00 08 cayden Bettencourt 2017-12-23 2017-12-25 Phone nullFlavo MNA [id number] Memoria 14:53:00 04:59:59 Message r Neuroscienc 08 l e Donna Bettencourt 2017-12-23 2017-12-25 Phone nullFlavo MNA [id number] Memoria 14:53:00 04:59:59 Message r Neuroscienc 08 l e Donna Bettencourt 2017-12-23 2017-12-25 Phone nullFlavo MNA [id number] Memoria 14:53:00 04:59:59 Message r Neuroscienc 08 l e Donna Bettencourt 2017-12-23 2017-12-24 Outpatient MHIDSCHER MHMISCHER [id number] 09:53:00 23:59:59 08 2017-12-23 2017-12-24 Outpatient MHIDSCHER MHIDSCHER [id number] 09:53:00 23:59:59 08 2017-12-22 2017-12-24 Phone nullFlavo MNA [id number] Memoria 19:14:00 04:59:59 Message r Neuroscienc 07 l marcy Bettencourt 2017-12-22 2017-12-24 Phone nullFlavo MNA [id number] Memoria 19:14:00 04:59:59 Message r Neuroscienc 07 l e Donna Bettencourt 2017-12-22 2017-12-24 Phone nullFlavo MNA [id number] Memoria 19:14:00 04:59:59 Message r Neuroscienc 07 l e Donna Bettencourt 2017-12-22 2017-12-23 Outpatient MHMISCHER MHMISCHER [id number] 14:14:00 23:59:59 07 2017-12-22 2017-12-23 Outpatient MHMISCHER MHMISCHER [id number] 14:14:00 23:59:59 07 2017-12-18 2017-12-20 Phone nullFlavo MNA [id number] Memoria 16:40:00 04:59:59 Message r Neurosurger 06 l y [facility] 2017-12-18 2017-12-20 Phone nullFlavo MNA [id number] Memoria 16:40:00 04:59:59 Message r Neurosurger 06 l y [facility] 2017-12-18 2017-12-20 Phone nullFlavo MNA [id number] Memoria 16:40:00 04:59:59 Message r Neurosurger 06 l y [facility] 2017-12-18 2017-12-19 Outpatient MHMISCHER MHMISCHER [id number] 11:40:00 23:59:59 06 2017-12-18 2017-12-19 Outpatient MHMISCHER MHMISCHER [id number] 11:40:00 23:59:59 06 2017-12-17 2017-12-19 Phone nullFlavo MNA [id number] Memoria 15:39:00 04:59:59 Message r Neuroscienc 05 l e Donna Walkerann 2017-12-17 2017-12-19 Phone nullFlavo MNA [id number] Memoria 15:39:00 04:59:59 Message r Neuroscienc 05 l e Donna Bettencourt 2017-12-17 2017-12-19 Phone nullFlavo MNA [id number] Memoria 15:39:00 04:59:59 Message r Neuroscienc 05 l e Donna Walkerann 2017-12-17 2017-12-18 Outpatient MHMISCHER MHMISCHER [id number] 10:39:00 23:59:59 05 2017-12-17 2017-12-18 Outpatient MHMISCHER MHMISCHER [id number] 10:39:00 23:59:59 05 2017-12-11 2017-12-12 Outpt Diag nullFlavo [facility] [id number] Memoria 17:57:00 04:59:00 Services r Outpatient 01 l Imaging Sg Thompson 2017-12-11 2017-12-12 Outpt Diag nullFlavo [facility] [id number] Memoria 17:57:00 04:59:00 Services r Outpatient 01 l Imaging Sg Thompson 2017-12-11 2017-12-12 Outpt Diag nullFlavo [facility] [id number] Memoria 17:57:00 04:59:00 Services r Outpatient 01 l Imaging Sg Thompson 2017-12-11 2017-12-11 Outpatient German, MH28 MH28 [id number] 12:57:00 23:59:00 Izzy A 2017-12-11 2017-12-11 Outpatient German, MH28 MH28 [id number] 12:57:00 23:59:00 Izzy A 2017-12-10 2017-12-11 Outpatient nullFlavo [id number] Memoria 17:52:00 04:59:00 r Community 01 l Cardiology Tisha chayo Thompson 2017-12-10 2017-12-11 Outpatient nullFlavo [id number] Memoria 17:52:00 04:59:00 r Community 01 l Cardiology Tisha chayo Thompson 2017-12-10 2017-12-11 Outpatient nullFlavo [id number] Memoria 17:52:00 04:59:00 r [facility] 01 l Cardiology Tisha chayo Thompson 2017-12-10 2017-12-10 Outpatient [facility] [id number] 12:52:00 23:59:00 , Noe [facility] 2017-12-10 2017-12-10 Outpatient [facility] [id number] 12:52:00 23:59:00 , Noe [facility] 2017-12-08 2017-12-09 Outpatient nullFlavo MNA [id number] Memoria 16:00:00 04:59:59 r Neuroscienc 06 l e Donna Bettencourt 2017-12-08 2017-12-09 Outpatient nullFlavo MNA [id number] Memoria 16:00:00 04:59:59 r Neuroscienc 06 l e Donna Bettencourt 2017-12-08 2017-12-08 [facility] [id number] 11:00:00 23:59:59 06 2017-12-08 2017-12-08 Outpatient MHMISCHER MHMISCHER [id number] 11:00:00 23:59:59 06 2017-12-08 2017-12-08 Outpatient MHIE MHIE [id number] Memoria 11:00:00 11:00:00 06 cayden Squire 2017-12-08 2017-12-08 Outpatient MHIE MHIE [id number] Memoria 11:00:00 11:00:00 06 cayden Sg 2017-12-08 2017-12-08 Outpatient MHIE MHIE [id number] Memoria 11:00:00 11:00:00 06 l Squire 2017-12-03 2017-12-04 Outpatient nullFlavo MNA [id number] Memoria 20:30:00 04:59:59 r Neurosurger 05 l y Paul Rudy n 2017-12-03 2017-12-04 Outpatient nullFlavo MNA [id number] Memoria 20:30:00 04:59:59 r Neurosurger 05 l y [place] [facility] 2017-12-03 2017-12-03 Outpatient MHMISCHER MHMISCHER [id number] 15:30:00 23:59:59 05 2017-12-03 2017-12-03 Outpatient MHMISCHER MHMISCHER [id number] 15:30:00 23:59:59 05 2017-12-03 2017-12-03 Outpatient MHIE MHIE [id number] Memoria 15:30:00 15:30:00 05 cayden Bettencourt 2017-12-03 2017-12-03 Outpatient MHIE MHIE [id number] Memoria 15:30:00 15:30:00 05 cayden Bettencourt 2017-12-03 2017-12-03 Outpatient MHIE MHIE [id number] Memoria 15:30:00 15:30:00 05 cayden Bettencourt 2017-12-01 2017-12-03 Phone nullFlavo MNA [id number] Memoria 14:49:00 04:59:59 Message r Neuroscienc 04 l marcy Bettencourt 2017-12-01 2017-12-03 Phone nullFlavo MNA [id number] Memoria 14:49:00 04:59:59 Message r Neuroscienc 04 l e Donna Bettencourt 2017-12-01 2017-12-03 Phone nullFlavo MNA [id number] Memoria 14:49:00 04:59:59 Message r Neuroscienc 04 Zara Bettencourt 2017-12-01 2017-12-02 Outpatient MHMISCHER MHMISCHER [id number] 09:49:00 23:59:59 04 2017-12-01 2017-12-02 Outpatient MHMISCHER MHMISCHER [id number] 09:49:00 23:59:59 2017-10-21 2017-10-21 Ambulatory nullFlavo MNA [id number] Memoria 18:00:00 18:00:00 Pre-Reg r Neuroscienc 04 Zara Bettencourt 2017-10-21 2017-10-21 Ambulatory nullFlavo MNA [id number] Memoria 18:00:00 18:00:00 Pre-Reg r Neuroscienc 04 Zara Bettencourt 2017-10-21 2017-10-21 Outpatient MHIE MHIE [id number] Memoria 13:00:00 13:00:00 04 cayden Sg 2017-10-21 2017-10-21 Outpatient MHIE MHIE [id number] Memoria 13:00:00 13:00:00 04 cayden Bettencourt 2017-10-21 2017-10-21 Outpatient Angel, MHMISCHER MHMISCHER [id number] 13:00:00 13:00:00 Devendra Tomlin 2017-10-21 2017-10-21 Outpatient Angel, MHMISCHER MHMISCHER [id number] 13:00:00 13:00:00 Devendra [place] 2017-10-21 2017-10-21 Outpatient MHIE MHIE [id number] Memoria 13:00:00 13:00:00 Cristofer Walkerann 2017-10-13 2017-10-15 Phone nullFlavo MNA [id number] Memoria 19:16:00 04:59:59 Message r Neurology 03 cayden Bettencourt 2017-10-13 2017-10-15 Phone nullFlavo MNA [id number] Memoria 19:16:00 04:59:59 Message r Neurology 03 cayden Bettencourt 2017-10-13 2017-10-15 Phone nullFlavo MNA [id number] Memoria 19:16:00 04:59:59 Message r Neurology 03 l Donna Walkerann 2017-10-13 2017-10-14 Outpatient MHMISCHER MHMISCHER [id number] 14:16:00 23:59:59 03 2017-10-13 2017-10-14 Outpatient MHMISCHER MHMISCHER [id number] 14:16:00 23:59:59 03 2017-09-22 2017-09-23 Outpatient nullFlavo MNA [id number] Memoria 17:30:00 05:59:59 r Neuroscienc 02 l marcy Walkerann 2017-09-22 2017-09-23 Outpatient nullFlavo MNA [id number] Memoria 17:30:00 05:59:59 r Neuroscienc 02 l marcy Thompson Sg 2017-09-22 2017-09-22 Outpatient MHMISCHER MHMISCHER [id number] 11:30:00 23:59:59 02 2017-09-22 2017-09-22 Outpatient MHMISCHER MHMISCHER [id number] 11:30:00 23:59:59 02 2017-09-22 2017-09-22 Outpatient MHMISCHER MHMISCHER [id number] 11:30:00 23:59:59 02 2017-09-22 2017-09-22 Outpatient MHMISCHER MHMISCHER [id number] 11:30:00 23:59:59 02 2017-09-22 2017-09-22 Outpatient MHIE MHIE [id number] Memoria 11:30:00 11:30:00 02 cayden Bettencourt 2017-09-22 2017-09-22 Outpatient MHIE MHIE [id number] Memoria 11:30:00 11:30:00 02 cayden Bettencourt 2017-09-22 2017-09-22 Outpatient MHIE MHIE [id number] Memoria 11:30:00 11:30:00 02 cayden Bettencourt 2017-09-09 2017-09-09 Outpatient nullFlavo [id number] Memoria 18:40:00 18:40:00 r Community 00 l Cardiology Tisha chayo Thompson 2017-09-09 2017-09-09 [place] [id number] Memoria 18:40:00 18:40:00 r Community 00 l Cardiology Tisha chayo Thompson 2017-09-09 2017-09-09 Outpatient nullFlavo [id number] Memoria 18:40:00 18:40:00 r Community 00 l Cardiology Tisha chayo Thompson 2017-09-09 2017-09-09 Outpatient Stephani Briggs [facility] [id number] 12:40:00 12:40:00 Ahmed 2017-09-09 2017-09-09 Outpatient Stephani Briggs [facility] [id number] 12:40:00 12:40:00 Ahmed 2017-09-03 2017-09-05 Phone nullFlavo MNA [id number] Memoria 22:44:00 05:59:59 Message r Neuroscienc 02 l e Donna Bettencourt 2017-09-03 2017-09-05 Phone nullFlavo MNA [id number] Memoria 22:44:00 05:59:59 Message r Neuroscienc 02 l e Donna Bettencourt 2017-09-03 2017-09-05 Phone nullFlavo MNA [id number] Memoria 22:44:00 05:59:59 Message r Neuroscienc 02 l e Donna Bettencourt 2017-09-03 2017-09-04 Outpatient MHMISCHER MHMISCHER [id number] 16:44:00 23:59:59 02 2017-09-03 2017-09-04 Outpatient MHMISCHER MHMISCHER [id number] 16:44:00 23:59:59 02 2017-08-31 2017-09-01 Outpatient nullFlavo MNA [id number] Memoria 19:30:00 05:59:59 r Neuroscienc 03 l e Donna Bettencourt 2017-08-31 2017-09-01 Outpatient nullFlavo MNA [id number] Memoria 19:30:00 05:59:59 r Neuroscienc 03 l e Donna Walkerann 2017-08-31 2017-08-31 Outpatient MHMISCHER MHMISCHER [id number] 13:30:00 23:59:59 03 2017-08-31 2017-08-31 Outpatient MHMISCHER MHMISCHER [id number] 13:30:00 23:59:59 03 2017-08-31 2017-08-31 Outpatient MHIE MHIE [id number] Memoria 13:30:00 13:30:00 03 cayden Bettencourt 2017-08-31 2017-08-31 Outpatient MHIE MHIE [id number] Memoria 13:30:00 13:30:00 03 cayden Bettencourt 2017-08-31 2017-08-31 Outpatient MHIE MHIE [id number] Memoria 13:30:00 13:30:00 03 cayden Bettencourt 2017-08-26 2017-08-28 Phone nullFlavo MNA [id number] Memoria 17:47:00 05:59:59 Message r Neurology 01 cayden Bettencourt 2017-08-26 2017-08-28 Phone nullFlavo MNA [id number] Memoria 17:47:00 05:59:59 Message r Neurology 01 cayden Bettencourt 2017-08-26 2017-08-28 Phone nullFlavo MNA [id number] Memoria 17:47:00 05:59:59 Message r Neurology 01 cayden Bettencourt 2017-08-26 2017-08-27 Outpatient MHMISCHER MHMISCHER [id number] 11:47:00 23:59:59 2017-08-26 2017-08-27 Outpatient MHMISCHER MHMISCHER [id number] 11:47:00 23:59:59 2017-08-24 2017-08-26 Phone nullFlavo MNA [id number] Memoria 21:44:00 05:59:59 Message r Neurology 00 cayden Bettencourt 2017-08-24 2017-08-26 Phone nullFlavo MNA [id number] Memoria 21:44:00 05:59:59 Message r Neurology 00 cayden Bettencourt 2017-08-24 2017-08-26 Phone nullFlavo MNA [id number] Memoria 21:44:00 05:59:59 Message r Neurology 00 cayden Bettencourt 2017-08-24 2017-08-25 Outpatient MHMISCHER MHMISCHER [id number] 15:44:00 23:59:59 2017-08-24 2017-08-25 Outpatient MHMISCHER MHMISCHER [id number] 15:44:00 23:59:59 2017-08-06 2017-08-07 Outpt Diag nullFlavo [facility] [id number] Memoria 17:51:00 05:59:00 Services r Outpatient 00 l Imaging Sg Thompson 2017-08-06 2017-08-07 Outpt Diag nullFlavo [facility] [id number] Memoria 17:51:00 05:59:00 Services r Outpatient 00 l Imaging Sg Thompson 2017-08-06 2017-08-07 Outpt Diag nullFlavo [facility] [id number] Memoria 17:51:00 05:59:00 Services r Outpatient 00 l Imaging Sg Thompson 2017-08-06 2017-08-06 Outpatient Juno MH28 MH28 [id number] 11:51:00 23:59:00 Kvng 00 Smooth 2017-08-06 2017-08-06 Outpatient Juno MH28 MH28 [id number] 11:51:00 23:59:00 Kvng 00 Smooth 2017-07-24 2017-07-25 Outpatient nullFlavo MNA [id number] Memoria 19:00:00 05:59:59 r Neuroscienc 01 Zara Bettencourt 2017-07-24 2017-07-25 Outpatient nullFlavo MNA [id number] Memoria 19:00:00 05:59:59 r Neuroscienc 01 Zara Bettencourt 2017-07-24 2017-07-25 Outpatient nullFlavo MNA [id number] Memoria 19:00:00 05:59:59 r Neuroscienc 01 Zara Bettencourt 2017-07-24 2017-07-24 Outpatient MHMISCHER MHMISCHER [id number] 13:00:00 23:59:59 2017-07-24 2017-07-24 Outpatient MHMISCHER MHMISCHER [id number] 13:00:00 23:59:59 2017-07-24 2017-07-24 Outpatient MHIE MHIE [id number] Memoria 13:00:00 13:00:00 cayden Bettencourt 2017-07-24 2017-07-24 Outpatient MHIE MHIE [id number] Memoria 13:00:00 13:00:00 cayden Bettencourt 2017-07-22 2017-07-24 Phone nullFlavo MNA [id number] Memoria 17:58:00 05:59:59 Message r Neurology 01 cayden Bettencourt 2017-07-22 2017-07-24 Phone nullFlavo MNA [id number] Memoria 17:58:00 05:59:59 Message r Neurology 01 cayden Bettencourt 2017-07-22 2017-07-24 Phone nullFlavo MNA [id number] Memoria 17:58:00 05:59:59 Message r Neurology 01 cayden Bettencourt 2017-07-22 2017-07-23 Outpatient MHMISCHER MHMISCHER [id number] 11:58:00 23:59:59 2017-07-22 2017-07-23 Outpatient MHMISCHER MHMISCHER [id number] 11:58:00 23:59:59 2017-04-06 2017-04-06 Emergency nullFlavo [facility] [id number] Memoria 19:12:00 21:32:00 r Squire 02 [email or web address] 2017-04-06 2017-04-06 Emergency nullFlavo [facility] [id number] Memoria 19:12:00 21:32:00 r Sg 02 [email or web address] 2017-04-06 2017-04-06 Emergency nullFlavo [facility] [id number] Memoria 19:12:00 21:32:00 r Squire 02 [email or web address] 2017-04-06 2017-04-06 Outpatient Hinojosa, 2.16.840. 2.16.840.1. 3 [id number] 14:12:00 16:32:00 Rogerio [id number] 2017-04-06 2017-04-06 Outpatient Ashish, 2.16.840. 2.16.840.1. 3 [id number] 14:12:00 16:32:00 Rogeiro [id number] 5.120 2017-04-06 2017-04-06 Outpatient MHIE MHIE [id number] Memoria 13:00:00 13:00:00 00 [facility] 2017-04-06 2017-04-06 Outpatient MHIE MHIE [id number] Memoria 13:00:00 13:00:00 00 [facility] 2017-04-06 2017-04-06 [id number] Memoria 13:00:00 13:00:00 00 cayden Bettencourt Results Test Description Test Time Test Comments Results Result Comments Source TROPONIN I 2022-08-07 21:15:24 Test Item Value Reference Range Interpretation Comme nts TROPONIN I (test code = 0.004 ng/mL See_Comment [Au tomated message] The [id number]) system which ge nerated this result tra [...] biotin. Lab Interpretation Normal (test code = 19063-9) [id number] 21:12:20 Test Item Value Reference Range Interpretation Comments NT-proBNP (test code 42 pg/mL See_Comment [Autom ated = 2642946021) message] The system which generated this result transmitted reference range : <=125. The reference range was not used to interpret this result as normal/abnormal . TRISTA (test code = TRISTA) Biotin has been reported to cause a negative bias, interpret results relative to patient's use of biotin. Lab Interpretation Normal (test code = 49435-8) [facility]OLIC PAN[facility] (45860)2022-08-07 21:03:40 Test Item Value Reference Range Interpretation Comments NA (test code = 137 mmol/L 135-145 4665582829) K (test code = 4.9 mmol/L 3.5-5.0 3620740633) CL (test code = 100 mmol/L 98-108 9864873674) CO2 TOTAL (test code = 33 mmol/L 23-31 H 0886181362) AGAP (test code = 2-16 3521037432) BUN (test code = 10 mg/dL 7-23 0012005666) GLUCOSE (test code = 123 mg/dL 70-110 H 0812104082) CREATININE (test code = 0.64 mg/dL 0.60-1.25 4114714816) TOTAL BILI (test code = 1.0 mg/dL 0.1-1.3 7840482659) CALCIUM (test code = 8.3 mg/dL 8.6-10.6 L 0179594027) T PROTEIN (test code = 7.1 g/dL 6.3-8.2 2223895359) ALBUMIN (test code = 4.2 g/dL 3.5-5.0 9776694648) ALK PHOS (test code = 75 U/L 34-122 3656980433) ALTv (test code = 38 U/L 5-50 1742-6) AST(SGOT) (test code = 40 U/L 13-40 9104901031) eGFR (test code = mL/min/1.73m2 4771570966) TRISTA (test code = TRISTA) Association of [...] tests). Lab Interpretation Abnormal (test code = 27899-3) [facility] WITH [id number] 20:55:16 Test Item Value Reference Range Interpretation Comments WBC (test code = See_Comment [Automated 6690-2) message] The sy stem which generated this result transmitted reference range : 4.20 - 10.70 10*3/?L. The reference range was not used to interpret this result as normal/abnormal . RBC (test code = See_Comment [Automated 789-8) message] The sy stem which generated this [...] RDW-SD (test code = 50.7 fL 38.5-51.6 12373-3) RDW-CV (test code = 13.8 % 12.1-15.4 788-0) PLT (test code = See_Comment [Automated 777-3) message] The sy stem which generated this result transmitted reference range : 150 - 328 10*3/ ?L. The reference r kevin was not used to interpret this result as normal/abnormal . MPV (test code = 9.4 fL 9.8-13.0 L 98800-2) NRBC/100 WBC (test See_Comment [Automat ed code = 2559159081) message] The system which generated this result transmitted reference range : 0.0 - 10.0 /100 WBCs. The refer ence range was not u sed to interpret th is result as normal/abnormal . NRBC x10^3 (test code See_Comment [Auto mated = 3618860221) message] The s ystem which generated this result transmitted reference range : 10*3/?L. The reference range was not used to interpret this result as normal/abnormal . GRAN MAT (NEUT) % 78.2 % (test code = 770-8) IMM GRAN % (test code 0.50 % = 7736314363) LYMPH % (test code = 12.2 % 736-9) MONO % (test code = 6.2 % 5905-5) EOS % (test code = 2.3 % 713-8) BASO % (test code = 0.6 % 706-2) GRAN MAT x10^3(ANC) 6.61 10*3/uL 1.99-6.95 (test code = 5077263402) IMM GRAN x10^3 (test 0.04 10*3/uL 0.00-0.06 code = 5686710183) LYMPH x10^3 (test code 1.03 10*3/uL 1.09-3.23 L = 731-0) MONO x10^3 (test code 0.52 10*3/uL 0.36-1.02 = 742-7) EOS x10^3 (test code = 0.19 10*3/uL 0.06-0.53 711-2) BASO x10^3 (test code 0.05 10*3/uL 0.01-0.09 = 704-7) Lab Interpretation Abnormal (test code = 14961-8) [facility] 12 [id number] 17:06:02 Test Item Value Reference Range Interpretation [...] 29-OCT-2020 02:22,-Atrial fibrillation has replaced Sinus rhythm- [address]2021-04-15 17:06:02 Test Item Value Reference Range Interpretation [...] 29-OCT-2020 02:22,-Atrial fibrillation has replaced Sinus rhythm- [address]2021-04-15 17:06:02 Test Item Value Reference Range Interpretation [...] 29-OCT-2020 02:22,-Atrial fibrillation has replaced Sinus rhythm- [facility]2021-04-12 18:36:35 Test Item Value Reference Range Interpretation Comments Urine culture No growth Specimen isolate (test after 24 InformationSpe cimen code = 67519-5) hours Source: Urin eSpecimen Site: Clean cat [facility]2021-04-12 18:36:35 Test Item Value Reference Range Interpretation Comments Urine culture No growth Specimen isolate (test after 24 InformationSpe [facility] code = 21951-1) hours Source: U[facility]Spec[id number] 18:36:35 Test Item Value Reference Range Interpretation Comments Urine culture No growth Specimen isolate (test after 24 InformationSpe [facility] code = 20174-5) hours Source: Urin eSpecimen [facility] [place] Pelvis W [id number] 00:10:11CT ABDOMEN PELVIS W CONTRAST CLINICAL INDICATION: [...] abnormality is identified.2. See above for chronic findings.[id number]XR [facility]dom[facility] 1 [id number] 17:40:27EXAMINATION: XR ABDOMEN 1 PORTABLE CLINICAL HISTORY: Nausea vomiting IMPRESSION: There are vascular grafts present. There are postoperative changes in the lumbar spine. Intestinal gas pattern is nonspecific. There is no free intraperitoneal air. [facility]-[id number] Interface, Radiology Results - 10/28/2020 12:43 PM CDT EXAMINATION:XR ABDOMEN 1 VW PORTABLECLINICAL HISTORY: Nausea vomitingIMPRESSION:There are vascular grafts present. There are postoperative changes in the lumbar spine. Intestinal gas pattern is nonspecific. There is no free intraperitoneal air.[facility]-[id number] [facility] 1 Wzqujjlh9348-73-68 13:09:24EXAMINATION: XR CHEST 1 VW PORTABLE CLINICAL HISTORY: preop COMPARISON: 10/08/2020 IMPRESSION: 1.Cardi omediastinal silhouette is stable. The central vasculature is normal. 2.There are some mild atelectatic changes versus scarring in the right base, stable. The lungs are otherwise clear without consolidation or effusion. There is no pneumothorax [id number] Interface, Radiology Results Incoming - 10/28/2020 8:12 AM CDT EXAMINATION: XR CHEST1 VW PORTABLECLINICAL HISTORY: preopCOMPARISON: 10/08/2020IMPRESSION:1.Cardiomediastinal silhouette is stable. The central vasculature is normal.2.There are some mild atelectatic changes versus scarring in the right base, stable. The lungs are otherwise clear without consolidation or effusion. There isno [id number]ARS[facility] (COVID-19) RNA [Presence] in Respiratory specimen by KAMAR with probe detection 2020-10-28 04:14:06 Test Item Value Reference Range Interpretation Comments SARS-CoV-2 (COVID-19) RNA Not detected Not-Detected [Presence] in Respiratory specimen by KAMAR with probe detection (test code = 83115-4) [facility]Hy[facility] or ziitbgrqbsm1365-45-18 17:33:49See operative report for the same dayHinduism HospitalArterial zrvm8849-40-88 17:27:06Tal Ríos Jr., MD 01/05/2021 2:37 PMArterial line Performed by: anesthesia residentAnesthesiologist: Tal Ríos Jr. MDResident/UPPER CUTTER/AA: Hitesh Ibanez, CRNAAuthorized by: Tal Ríos Jr., [...] Normal and unchanged Patient tolerance: Patient tolerated theprocedure well with no immediate lhlmbidsgbggzBnauui1160-99-84 17:17:00Hitesh Ibanez CRNA 10/11/2020 12:46 PMAirway Date/Time: 10/11/2020 12:17 PM Location: OR Performedby: LATA/AAAnesthesiologist: Tal Ríos Jr., MDResident/UPPER CUTTER/AA: iHtesh Ibanez CRNAAuthorized by: Tal Ríos Jr., MD [...] Number of Attempts at Approach: 1ECG Pre/Post [id number] 00:40:58 Test Item Value Reference Range Interpretation Comments Ventricular rate (test code = 253) Atrial rate (test code = 255) ME interval (test code = 266) QRSD interval [...] bundle branch block is no longer present- [facility] Pre/Post [id number] 00:40:58 Test Item Value Reference Range Interpretation Comments Ventricular rate (test code = 253) Atrial rate (test code = 255) ME interval (test code = 266) QRSD interval [...] bundle branch block is no longer present- [facility] Pre/Post Dg6547-07-39 00:40:58 Test Item Value Reference Range Interpretation Comments Ventricular rate (test code = 253) Atrial rate (test code = 255) ME interval (test code = 266) QRSD interval [...] is no longer present- [facility] HospitalARS-CoV-2 (COVID-19) RNA [Presence] in Respiratory specimen by KAMAR with probe mfwbstxvd8783-25-87 21:03:56 Test Item Value Reference Range Interpretation Comments SARS-CoV-2 (COVID-19) RNA Not detected Not-Detected [Presence] in Respiratory specimen by KAMAR with probe detection (test code = 37869-5) [facility] 2 [id number] 19:03:33EXAMINATION: XR CHEST 2 VW CLINICAL HISTORY: 69 years Male I87.1 Compression of vein, R60.0 Localized edema, surgery COMPARISON: 05/30/2019 IMPRESSION: 1.The cardiomediastinal silhouette is normal.2.Noevidence pulmonary edema. No focal consolidations. Minimal atelectasis right lung base.3.Regional skeletal structures are diffusely osteopenic. [facility]-LW34DAIHIi Interface, Radiology Results Incoming - 10/08/2020 2:06 PM CDT EXAMINATION: XR CHEST 2 VWCLINICAL HISTORY: 69 years Male I87.1 Compression of vein, R60.0 Localized edema, surgeryCOMPARISON: 05/30/2019IMPRESSION:1.The cardiomediastinal silhouette is normal.2.No evidence pulmonary edema. No focal consolidations. Minimal atelectasis right lung base.3.Regional skeletal structures are diffusely osteopenic.[facility]-UJ70ODBR Hinduism SuvorrlkvCPM7967-70-82 01:41:00 Test Item Value Reference Range Interpretation Comments APTT Patient (test See_Comment [Automat ed code = 3173-2) message] The system which generated this result transmitted reference range : 23 - 38 Seconds . The reference range was not used to interpr et this result as normal/abnormal . TRISTA (test code = TRISTA) The [facility] patient population mean normal value for aPTT is 30 seconds. Lab Interpretation Normal (test code = 07320-3) [facility]ieProthrombin Time (PT) / [id number] 01:39:00 Test Item Value Reference Range Interpretation [...] tions. Lab Interpretation (test Abnormal code = 61075-7) [facility]ieTroponin [id number] 01:34:00 Test Item Value Reference Range Interpretation Comments TROPONIN I (test <0.012 See_Comment [Automated code = 9683451530) message] The system which generated this result [...] ? Lab Interpretation Normal (test code = 56520-8) [facility]ieN-TERMINAL GYH-[id number] 01:31:00 Test Item Value Reference Range Interpretation Comments NT-proBNP (test code 33 pg/mL See_Comment [Autom ated = 5263462344) message] The system which generated this result transmitted reference range : <=125. The reference range was not used to interpret this result as normal/abnormal . TRISTA (test code = TRISTA) Biotin has been reported to cause a negative bias, interpret results relative to patient's use of biotin. Lab Interpretation Normal (test code = 37390-3) [facility]achieCBC with Lysterhkxkss0711-14-15 01:25:00 Test Item Value Reference Range Interpretation Comments WBC (test code = See_Comment [Automated 6690-2) message] The sy stem which generated this result transmitted reference range : 4.20 - 10.70 10*3/?L. The reference range was not used to interpret this result as normal/abnormal . RBC (test code = See_Comment [Automated 789-8) message] The sy stem which generated this [...] RDW-SD (test code = 49.6 fL 38.5-51.6 81946-3) RDW-CV (test code = 14.4 % 12.1-15.4 788-0) PLT (test code = See_Comment H [Automated 777-3) message] The sy stem which generated this result transmitted reference range : 150 - 328 10*3/ ?L. The reference r kevin was not used to interpret this result as normal/abnormal . MPV (test code = 9.2 fL 9.8-13 L 45971-3) NRBC/100 WBC (test See_Comment [Automat ed code = 5385465654) message] The system which generated this result transmitted reference range : 0.0 - 10.0 /100 WBCs. The refer ence range was not u sed to interpret th is result as normal/abnormal . NRBC x10^3 (test code <0.01 See_Comment [Auto mated = 8825450170) message] The s ystem which generated this result transmitted reference range : 10*3/?L. The reference range was not used to interpret this result as normal/abnormal . GRAN MAT (NEUT) % 78.6 % (test code = 770-8) IMM GRAN % (test code 0.40 % = 0407582975) LYMPH % (test code = 11.4 % 736-9) MONO % (test code = 6.8 % 5905-5) EOS % (test code = 2.3 % 713-8) BASO % (test code = 0.5 % 706-2) GRAN MAT x10^3(ANC) 6.61 10*3/uL 1.99-6.95 (test code = 2289865266) IMM GRAN x10^3 (test 0.03 10*3/uL 0-0.06 code = 1532530148) LYMPH x10^3 (test code 0.96 10*3/uL 1.09-3.23 L = 731-0) MONO x10^3 (test code 0.57 10*3/uL 0.36-1.02 = 742-7) EOS x10^3 (test code = 0.19 10*3/uL 0.06-0.53 711-2) BASO x10^3 (test code 0.04 10*3/uL 0.01-0.09 = 704-7) Lab Interpretation Abnormal (test code = 01674-4) [facility] Metabolic Panel (NA, K, CL, CO2, GLUCOSE, BUN, CREATININE, CA)2020-07-16 01:24:00 Test Item Value Reference Range Interpretation Comments NA (test code = 139 mmol/L 135-145 5309082631) K (test code = 4.3 mmol/L 3.5-5 8782751312) CL (test code = 100 mmol/L 98-108 3877635188) CO2 TOTAL (test code = 31 mmol/L 23-31 4362613237) AGAP (test code = 2-16 3140808463) BUN (test code = 11 mg/dL 7-23 0503209239) GLUCOSE (test code = 118 mg/dL 70-110 H 5726954792) CREATININE (test code = 0.80 mg/dL 0.6-1.25 1322827683) CALCIUM (test code = 9.2 mg/dL 8.6-10.6 4156155519) eGFR Calculation mL/min/1.73m2 (Non-) (test code = 0070929212) eGFR Calculation mL/min/1.73m2 () (test code = 5980816026) TRISTA (test code = TRISTA) Association of [...] tests). Lab Interpretation Abnormal (test code = 17385-4) [facility]ieHepatic Function Panel (ALB, T.PRO, BILI T, BU/BC, ALT, AST, ALK PHOS)2020-07-16 01:24:00 Test Item Value Reference Range Interpretation Comments TOTAL BILI (test code = 5038513989) 0.5 mg/dL 0.1-1.1 BILI UNCON (test code = 7459874654) 0.4 mg/dL 0.1-1.1 BILI CONJ (test code = 4492121762) 0.0 mg/dL 0-0.3 T PROTEIN (test code = 8869794145) 7.2 g/dL 6.3-8.2 ALBUMIN (test code = 4379960265) 4.2 g/dL 3.5-5 ALK PHOS (test code = 5778408227) 82 U/L 34-122 ALTv (test code = 1742-6) 34 U/L 5-50 AST(SGOT) (test code = 1934807695) 30 U/L 13-40 Lab Interpretation (test code = Normal 26321-6) [facility]ieCOVID-19 (ID NOW RAPID TESTING)2020-07-16 01:23:00 Test Item Value Reference Range Interpretation Comments SARS-CoV-2 Rapid ID NOW Positive Not Detected A (test code = 96420-1) TRISTA (test code = TRISTA) ID NOW COVID-19 Assay is an isothermal nucleic acid amplification test intended for the qualitative detection of nucleic acid from SARS-CoV-2 viral RNA in nasopharyngeal (ENVIRONMENTAL [employer] SPECIALIST) specimens. It is used under Emergency [...] indicated. Lab Interpretation Abnormal (test code = 00653-6) [facility] 1 [id number] 00:46:41Impression: Bibasilar atelectasis.Exam: XR CHEST 1 07/15/2020 [...] size is within normal limits. IMPRESSIONImpression: Bibasilar atelectasis.[facility]ieERYTHROMYCIN:SUSC:PT:ISOLATE:ORDQN:[id number] 17:15:00 Test Item Value Reference Range Interpretation Comments Gram Stain Report No Wbc'S Or Organisms (test code = Gram Seen Stain Report) [facility] HospitalannERYTHROMYCIN:SUSC:PT:ISOLATE:ORDQN:[id number] 17:15:00 Test Item Value Reference Range Interpretation Comments Culture: Rare Staphylococcus Aspirate/Body Species, Not S. aureus , Fluid/Tissue (test Upon Supplemental Testing, code = Culture: This Isolate Was Not Found Aspirate/Body To Be Resistant To Fluid/Tissue) Clindamycin By An Inducible Mechanism. [facility] HospitalannERYTHROMYCIN:SUSC:PT:ISOLATE:ORDQN:[id number] 17:15:00 Test Item Value Reference Range Interpretation Comments Staphylococcus Species, Staphylococcus Not S. aureus (test Species, Not S. aureus code = Staphylococcus Species, Not S. aureus) [facility] HospitalannCulture: Zxhmehfxe7036-20-58 17:15:00 Test Item Value Reference Range Interpretation Comments Culture: Anaerobic No Anaerobes Isolated (test code = Culture: Anaerobic) [facility] HospitalannERYTHROMYCIN:SUSC:PT:ISOLATE:ORDQN:[id number] 17:15:00 Test Item Value Reference Range Interpretation Comments Gram Stain Report No Wbc'S Or Organisms (test code = Gram Seen Stain Report) [facility] HospitalannERYTHROMYCIN:SUSC:PT:ISOLATE:ORDQN:[id number] 17:15:00 Test Item Value Reference Range Interpretation Comments Culture: Rare Staphylococcus Aspirate/Body Species, Not S. aureus , Fluid/Tissue (test Upon Supplemental Testing, code = Culture: This Isolate Was Not Found Aspirate/Body To Be Resistant To Fluid/Tissue) Clindamycin By An Inducible Mechanism. [facility] HospitalannERYTHROMYCIN:SUSC:PT:ISOLATE:ORDQN:[id number] 17:15:00 Test Item Value Reference Range Interpretation Comments Staphylococcus Species, Staphylococcus Not S. aureus (test Species, Not S. aureus code = Staphylococcus Species, Not S. aureus) [facility] HospitalannCulture: Rppzgwarv6850-67-66 17:15:00 Test Item Value Reference Range Interpretation Comments Culture: Anaerobic No Anaerobes Isolated (test code = Culture: Anaerobic) [facility] HospitalannERYTHROMYCIN:SUSC:PT:ISOLATE:ORDQN:[id number] 17:15:00 Test Item Value Reference Range Interpretation Comments Gram Stain Report No Wbc'S Or Organisms (test code = Gram Seen Stain Report) [facility] HospitalERYTHROMYCIN:SUSC:PT:ISOLATE:ORDQN:[id number] 17:15:00 Test Item Value Reference Range Interpretation Comments Culture: Rare Staphylococcus Aspirate/Body Species, Not S. aureus , Fluid/Tissue (test Upon Supplemental Testing, code = Culture: This Isolate Was Not Found Aspirate/Body To Be Resistant To Fluid/Tissue) Clindamycin By An Inducible Mechanism. [facility] HospitalERYTHROMYCIN:SUSC:PT:ISOLATE:ORDQN:[id number] 17:15:00 Test Item Value Reference Range Interpretation Comments Staphylococcus Species, Staphylococcus Not S. aureus (test Species, Not S. aureus code = Staphylococcus Species, Not S. aureus) [facility]: Yekipalvb0611-61-94 17:15:00 Test Item Value Reference Range Interpretation Comments Culture: Anaerobic No Anaerobes Isolated (test code = Culture: Anaerobic) [facility] HospitalCulture: Teoqtxaoh1392-48-95 18:30:00 Test Item Value Reference Range Interpretation Comments Culture: Anaerobic No Anaerobes Isolated (test code = Culture: Anaerobic) [facility] HospitalGram Stain Rsbqpb4719-10-48 18:30:00 Test Item Value Reference Range Interpretation Comments Gram Stain Report No Wbc'S Or Organisms (test code = Gram Seen Stain Report) [facility] Hospitallture: Aspirate/Body Fluid/[id number] 18:30:00 Test Item Value Reference Range Interpretation Comments Culture: Growth In Subculture Broth Aspirate/Body Only : Gram Pos Rods Fluid/Tissue (test Suggestive of Diphtheroids code = Culture: Staphylococcus Species, Not Aspirate/Body S. aureus Fluid/Tissue) [facility] HospitalannCulture: Nihhpzavg2650-12-46 18:30:00 Test Item Value Reference Range Interpretation Comments Culture: Anaerobic No Anaerobes Isolated (test code = Culture: Anaerobic) [facility] HospitalannGram Stain Nvxkle8755-15-71 18:30:00 Test Item Value Reference Range Interpretation Comments Gram Stain Report No Wbc'S Or Organisms (test code = Gram Seen Stain Report) [facility] HospitalannCulture: Aspirate/Body Fluid/Ucrfrr9867-28-48 18:30:00 Test Item Value Reference Range Interpretation Comments Culture: Growth In Subculture Broth Aspirate/Body Only : Gram Pos Rods Fluid/Tissue (test Suggestive of Diphtheroids code = Culture: Staphylococcus Species, Not Aspirate/Body S. aureus Fluid/Tissue) [facility] HospitalCulture: [id number] 18:30:00 Test Item Value Reference Range Interpretation Comments Culture: Anaerobic No Anaerobes Isolated (test code = Culture: Anaerobic) [facility] HospitalGram Stain Hlyurd3450-36-03 18:30:00 Test Item Value Reference Range Interpretation Comments Gram Stain Report No Wbc'S Or Organisms (test code = Gram Seen Stain Report) [facility] HospitalCulture: Aspirate/Body Fluid/Rxvttj8280-55-88 18:30:00 Test Item Value Reference Range Interpretation Comments Culture: Growth In Subculture Broth Aspirate/Body Only : Gram Pos Rods Fluid/Tissue (test Suggestive of Diphtheroids code = Culture: Staphylococcus Species, Not Aspirate/Body S. aureus Fluid/Tissue) [facility] [id number] 13:44:00 Test Item Value Reference Range Interpretation [...] 38-126 N (test code = ALKP) PROTHROMBIN [id number] 13:32:00 Test Item Value Reference Range Interpretation [...] myocar dial infarction. 2.0 - 3.0 3. Caramel Cutter Machine al prosthesis hear t valves, recurre nt systemic emboli sm. 3.0 - 4.5 PTT [id number] 13:32:00 Test Item Value Reference Range Interpretation Comments PTT ACTIVATED (test code = APTT) 27.1 SECONDS 22.0-33.0 N CBC W/AUTO [id number] 13:22:00 Test Item Value Reference Range Interpretation [...] = 0.00 K/mm3 0.0-0.1 N NRBC#) PROTHROMBIN [id number] 16:01:00 Test Item Value Reference Range Interpretation [...] myocar dial infarction. 2.0 - 3.0 3. Caramel Cutter Machine al prosthesis hear t valves, recurre nt systemic emboli sm. 3.0 - 4.5 Comments to Monotype Caster: TAKES XARELTOPTT [id number] 16:01:00 Test Item Value Reference Range Interpretation Comments PTT ACTIVATED (test code = APTT) 30.4 SECONDS 22.0-33.0 N Comments to Monotype Caster: TAKES XARELTOCHEM [id number] 19:37:00 Test Item Value Reference Range Interpretation Comments Alk Phos (test code = Alk Phos) 109 39-136 [facility] [id number] 19:37:00 Test Item Value Reference Range Interpretation Comments ASPARTATE TRANSAMINASE 31 See_Comment [Aut omated message] (test code = ASPARTATE The s ystem which TRANSAMINASE) generated this result transmitted ref erence range: <=37. Th e reference range was not used to interpr et this result as normal/abnormal . [facility] [id number] 19:37:00 Test Item Value Reference Range Interpretation Comments ALANINE AMINOTRANSFERASE 40 See_Comment [A utomated message] (test code = ALANINE The sys tem which AMINOTRANSFERASE) generated this result transmitted ref erence range: <=65. Th e reference range was not used to int erpret this result as normal/abnormal . [facility] HospitalThe [employer] [id number] 19:37:00 Test Item Value Reference Range Interpretation Comments Total Protein (test code = Total 7.4 6.4-8.4 Protein) [facility] [id number] 19:37:00 Test Item Value Reference Range Interpretation Comments Albumin Lvl (test code = Albumin Lvl) 3.8 3.5-5.0 [facility] [id number] 19:37:00 Test Item Value Reference Range Interpretation Comments Calcium Lvl (test code = Calcium Lvl) 8.9 8.5-10.5 [facility] [id number] 19:37:00 Test Item Value Reference Range Interpretation Comments CO2 (test code = CO2) 28 24-32 [facility] [id number] 19:37:00 Test Item Value Reference Range Interpretation Comments Sodium Lvl (test code = Sodium Lvl) 138 135-145 [facility]2017-09-18 19:37:00 Test Item Value Reference Range Interpretation Comments Potassium Lvl (test code = Potassium 4.3 3.5-5.1 Lvl) [facility]2017-09-18 19:37:00 Test Item Value Reference Range Interpretation Comments Chloride Lvl (test code = Chloride Lvl) 106 95-109 [facility]2017-09-18 19:37:00 Test Item Value Reference Range Interpretation Comments Creatinine Lvl (test code = Creatinine 0.80 0.50-1.40 Lvl) [facility]2017-09-18 19:37:00 Test Item Value Reference Range Interpretation Comments BUN (test code = BUN) 17 7-22 [facility]2017-09-18 19:37:00 Test Item Value Reference Range Interpretation Comments Glucose Lvl (test code = Glucose Lvl) 109 70-99 [facility] HoustonStedbucPJREFBGVMA9260-02-46 19:37:00 Test Item Value Reference Range Interpretation Comments Segs-Bands # (test code = Segs-Bands #) 6.5 1.5-8.1 [facility] HoustonRgacpliUAPQZMXTYB7986-76-67 19:37:00 Test Item Value Reference Range Interpretation Comments Monocytes # (test code 0.6 See_Comment [Aut omated message] The = Monocytes #) system which generated this result tra nsmitted reference range : <=0.8. The reference r kevin was not used to int erpret this result as normal/abnormal . [facility] HoustonLznnxpcXDCXFSPTDW4140-01-94 19:37:00 Test Item Value Reference Range Interpretation Comments Lymphocytes # (test code = Lymphocytes 1.6 1.0-5.5 #) [facility] HoustonExifwxjBBZFJAHRPZ7665-43-29 19:37:00 Test Item Value Reference Range Interpretation Comments Eosinophils # (test code 0.3 See_Comment [A utomated message] The = Eosinophils #) system whic h generated this result tra nsmitted reference range : <=0.5. The reference r kevin was not used to int erpret this result as normal/abnormal . [facility] HoustonUobybnhMSDRXYLSTM6865-52-34 19:37:00 Test Item Value Reference Range Interpretation Comments Basophils (test code = 0.6 See_Comment [Aut omated message] The Basophils) system which ge nerated this result tra nsmitted reference range : <=1.0. The reference r kevin was not used to int erpret this result as normal/abnormal . [facility] HoustonDupwevyNHDRYUIMOM3884-42-70 19:37:00 Test Item Value Reference Range Interpretation Comments Monocytes (test code = Monocytes) 6.1 2.0-12.0 [facility] HoustonEbzrtdiHBCFXTLOQO5266-95-17 19:37:00 Test Item Value Reference Range Interpretation Comments Eosinophils (test code = 3.0 See_Comment [A utomated message] The Eosinophils) system which ge nerated this result tra nsmitted reference range : <=4.0. The reference r kevin was not used to int erpret this result as normal/abnormal . [facility] HoustonDkrvcxwJPAIYAQVYS6268-09-82 19:37:00 Test Item Value Reference Range Interpretation Comments Basophils # (test code 0.1 See_Comment [Aut omated message] The = Basophils #) system which generated this result tra nsmitted reference range : <=0.2. The reference r kevin was not used to int erpret this result as normal/abnormal . [facility] HoustonCswuqlrLEDGMLVPTB1595-35-94 19:37:00 Test Item Value Reference Range Interpretation Comments Lymphocytes (test code = Lymphocytes) 18.2 20.0-40.0 [facility] HoustonCkkxenbUZHGMBPCXW7924-78-06 19:37:00 Test Item Value Reference Range Interpretation Comments Segs (test code = Segs) 72.1 45.0-75.0 [facility] HoustonQfnuklkWAQXQFQPUC6538-62-56 19:37:00 Test Item Value Reference Range Interpretation Comments aPTT (test code = aPTT) 31.4 s 22.9-35.8 [facility] HoustonRknfcjwVOZFAVCWAP0697-98-23 19:37:00 Test Item Value Reference Range Interpretation Comments PROTIME (test code = PROTIME) 12.6 s 12.0-14.7 [facility] HoustonMgxaokjFGFMEDKOFH9865-84-64 19:37:00 Test Item Value Reference Range Interpretation Comments INR (test code = INR) 0.92 0.85-1.17 [facility] HoustonFgrbhtvDASZTBLDTA6704-54-67 19:37:00 Test Item Value Reference Range Interpretation Comments MCHC (test code = MCHC) 34.4 32.0-36.0 [facility] HoustonWnpcbyrHGXOESWYET0771-11-54 19:37:00 Test Item Value Reference Range Interpretation Comments MCH (test code = MCH) 31.1 pg 27.0-31.0 [facility] HoustonIwkczzvTGMXPXNQIL0960-71-71 19:37:00 Test Item Value Reference Range Interpretation Comments WBC X 10x3 (test code = WBC X 10x3) 9.0 3.7-10.4 [facility] HoustonDeyawhiDAIQWZSDMD7221-98-27 19:37:00 Test Item Value Reference Range Interpretation Comments RBC X 10x6 (test code = RBC X 10x6) 5.24 4.70-6.10 [facility] HoustonHqguwwpOOIADZSBJS3840-32-57 19:37:00 Test Item Value Reference Range Interpretation Comments Platelet (test code = Platelet) 334 133-450 [facility] HoustonLrqcceuRCJRPXVGZI8498-78-76 19:37:00 Test Item Value Reference Range Interpretation Comments RDW (test code = RDW) 14.3 11.5-14.5 [facility] HoustonBylfvgcJBDPXELXYO5056-02-78 19:37:00 Test Item Value Reference Range Interpretation Comments MPV (test code = MPV) 7.3 7.4-10.4 [facility] HoustonCvgturbGNJGDBTUFH6410-79-05 19:37:00 Test Item Value Reference Range Interpretation Comments MCV (test code = MCV) 90.4 80.0-94.0 [facility] HoustonXjcghbuJUKIFJQRZB4407-52-81 19:37:00 Test Item Value Reference Range Interpretation Comments Hct (test code = Hct) 47.4 42.0-54.0 [facility] [id number] 19:37:00 Test Item Value Reference Range Interpretation Comments Hgb (test code = Hgb) 16.3 14.0-18.0 [facility] [id number] 19:37:00 Test Item Value Reference Range Interpretation Comments Troponin-I (test code no gt See_Comment [Auto mated message] The = Troponin-I) system which g enerated this result transmit caio reference range : <=0.40. The reference r kevin was not used to interpr et this result as aileen l/abnormal. [facility] [id number] 19:37:00 Test Item Value Reference Range Interpretation Comments CK MB (test code = CK MB) 7.4 0.5-3.6 [facility] [employer]2017-09-18 19:37:00 Test Item Value Reference Range Interpretation Comments Troponin-I (test code no gt See_Comment [Auto mated message] The = Troponin-I) system which g enerated this result transmit caio reference range : <=0.40. The reference r kevin was not used to interpr et this result as aileen l/abnormal. [facility] [employer]2017-09-18 19:37:00 Test Item Value Reference Range Interpretation Comments Total CK (test code = Total CK) 215 191 [facility] [employer] [id number] 19:37:00 Test Item Value Reference Range Interpretation Comments CK MB (test code = CK MB) 7.4 0.5-3.6 [facility] [employer]2017-09-18 19:37:00 Test Item Value Reference Range Interpretation Comments CK-MB INDEX (test 3.4 See_Comment [Automate d message] The code = CK-MB INDEX) system w [employer] generated this result transmit caio reference range : <=2.5. The reference range was not used to interpr et this result as aileen l/abnormal. [employer]2017-09-18 19:37:00 Test Item Value Reference Range Interpretation Comments Total CK (test code = Total CK) 215 191 [facility] [place] [id number] 19:37:00 Test Item Value Reference Range Interpretation Comments A/G Ratio (test code = A/G Ratio) 1.1 0.7-1.6 [facility] [employer]2017-09-18 19:37:00 Test Item Value Reference Range Interpretation Comments CK-MB INDEX (test 3.4 See_Comment [Automate d message] The code = CK-MB INDEX) system w [employer] generated this result transmit caio reference range : <=2.5. The reference range was not used to interpr et this result as aileen l/abnormal. [employer]2017-09-18 19:37:00 Test Item Value Reference Range Interpretation Comments AGAP (test code = AGAP) 8.3 10.0-20.0 [employer]2017-09-18 19:37:00 Test Item Value Reference Range Interpretation Comments A/G Ratio (test code = A/G Ratio) 1.1 0.7-1.6 [facility]2017-09-18 19:37:00 Test Item Value Reference Range Interpretation Comments Globulin (test code = Globulin) 3.6 2.7-4.2 [facility]2017-09-18 19:37:00 Test Item Value Reference Range Interpretation Comments AGAP (test code = AGAP) 8.3 10.0-20.0 [facility]2017-09-18 19:37:00 Test Item Value Reference Range Interpretation Comments B/C Ratio (test code = B/C Ratio) 21 01-11 [facility]2017-09-18 19:37:00 Test Item Value Reference Range Interpretation Comments Globulin (test code = Globulin) 3.6 2.7-4.2 [facility]2017-09-18 19:37:00 Test Item Value Reference Range Interpretation Comments eGFR (test code = eGFR) 93 [facility]2017-09-18 19:37:00 Test Item Value Reference Range Interpretation Comments Bili Total (test code = Bili Total) 0.4 0.2-1.3 [facility]2017-09-18 19:37:00 Test Item Value Reference Range Interpretation Comments B/C Ratio (test code = B/C Ratio) 01-11 [facility] HospitalCambridge Temperature ConceptsSELECT SPECIALTY HOSPITAL - [id number] 19:37:00 Test Item Value Reference Range Interpretation Comments Alk Phos (test code = Alk Phos) 109 39-136 [facility]2017-09-18 19:37:00 Test Item Value Reference Range Interpretation Comments eGFR (test code = eGFR) 93 [facility]2017-09-18 19:37:00 Test Item Value Reference Range Interpretation Comments ASPARTATE TRANSAMINASE 31 See_Comment [Aut omated message] (test code = ASPARTATE The s ystem which TRANSAMINASE) generated this result transmitted ref erence range: <=37. Th e reference range was not used to interpr et this result as normal/abnormal . [facility]2017-09-18 19:37:00 Test Item Value Reference Range Interpretation Comments Bili Total (test code = Bili Total) 0.4 0.2-1.3 [facility]2017-09-18 19:37:00 Test Item Value Reference Range Interpretation Comments ALANINE AMINOTRANSFERASE 40 See_Comment [A utomated message] (test code = ALANINE The sys tem which AMINOTRANSFERASE) generated this result transmitted ref erence range: <=65. Th e reference range was not used to int erpret this result as normal/abnormal . [facility]2017-09-18 19:37:00 Test Item Value Reference Range Interpretation Comments Alk Phos (test code = Alk Phos) 109 39-136 [facility]2017-09-18 19:37:00 Test Item Value Reference Range Interpretation Comments Total Protein (test code = Total 7.4 6.4-8.4 Protein) [facility]2017-09-18 19:37:00 Test Item Value Reference Range Interpretation Comments ASPARTATE TRANSAMINASE 31 See_Comment [Aut omated message] (test code = ASPARTATE The s ystem which TRANSAMINASE) generated this result transmitted ref erence range: <=37. Th e reference range was not used to interpr et this result as normal/abnormal . [facility]2017-09-18 19:37:00 Test Item Value Reference Range Interpretation Comments Albumin Lvl (test code = Albumin Lvl) 3.8 3.5-5.0 [facility]2017-09-18 19:37:00 Test Item Value Reference Range Interpretation Comments ALANINE AMINOTRANSFERASE 40 See_Comment [A utomated message] (test code = ALANINE The sys tem which AMINOTRANSFERASE) generated this result transmitted ref erence range: <=65. Th e reference range was not used to int erpret this result as normal/abnormal . [facility]2017-09-18 19:37:00 Test Item Value Reference Range Interpretation Comments Calcium Lvl (test code = Calcium Lvl) 8.9 8.5-10.5 [facility]2017-09-18 19:37:00 Test Item Value Reference Range Interpretation Comments Total Protein (test code = Total 7.4 6.4-8.4 Protein) [facility]2017-09-18 19:37:00 Test Item Value Reference Range Interpretation Comments CO2 (test code = CO2) 28 24-32 [facility]2017-09-18 19:37:00 Test Item Value Reference Range Interpretation Comments Albumin Lvl (test code = Albumin Lvl) 3.8 3.5-5.0 [facility]2017-09-18 19:37:00 Test Item Value Reference Range Interpretation Comments Sodium Lvl (test code = Sodium Lvl) 138 135-145 [facility]2017-09-18 19:37:00 Test Item Value Reference Range Interpretation Comments Calcium Lvl (test code = Calcium Lvl) 8.9 8.5-10.5 [facility]2017-09-18 19:37:00 Test Item Value Reference Range Interpretation Comments Potassium Lvl (test code = Potassium 4.3 3.5-5.1 Lvl) [facility]2017-09-18 19:37:00 Test Item Value Reference Range Interpretation Comments Chloride Lvl (test code = Chloride Lvl) 106 95-109 [facility]2017-09-18 19:37:00 Test Item Value Reference Range Interpretation Comments CO2 (test code = CO2) 28 24-32 [facility]2017-09-18 19:37:00 Test Item Value Reference Range Interpretation Comments Creatinine Lvl (test code = Creatinine 0.80 0.50-1.40 Lvl) [facility]2017-09-18 19:37:00 Test Item Value Reference Range Interpretation Comments Sodium Lvl (test code = Sodium Lvl) 138 135-145 [facility]2017-09-18 19:37:00 Test Item Value Reference Range Interpretation Comments BUN (test code = BUN) 17 7-22 [facility]2017-09-18 19:37:00 Test Item Value Reference Range Interpretation Comments Potassium Lvl (test code = Potassium 4.3 3.5-5.1 Lvl) [facility]2017-09-18 19:37:00 Test Item Value Reference Range Interpretation Comments Glucose Lvl (test code = Glucose Lvl) 109 70-99 [facility]2017-09-18 19:37:00 Test Item Value Reference Range Interpretation Comments Chloride Lvl (test code = Chloride Lvl) 106 95-109 [facility] HoustonSzpxwrgXSIPBUZPNG2605-05-91 19:37:00 Test Item Value Reference Range Interpretation Comments Segs-Bands # (test code = Segs-Bands #) 6.5 1.5-8.1 [facility]2017-09-18 19:37:00 Test Item Value Reference Range Interpretation Comments Creatinine Lvl (test code = Creatinine 0.80 0.50-1.40 Lvl) [facility] HoustonHphvwdrGSFFIUTFWV4755-83-67 19:37:00 Test Item Value Reference Range Interpretation Comments Monocytes # (test code 0.6 See_Comment [Aut omated message] The = Monocytes #) system which generated this result tra nsmitted reference range : <=0.8. The reference r kevin was not used to int erpret this result as normal/abnormal . [facility]2017-09-18 19:37:00 Test Item Value Reference Range Interpretation Comments BUN (test code = BUN) 17 7-22 [facility]2017-09-18 19:37:00 Test Item Value Reference Range Interpretation Comments Glucose Lvl (test code = Glucose Lvl) 109 70-99 [facility] HoustonEebmhdkWFVMJZCMEV5989-92-33 19:37:00 Test Item Value Reference Range Interpretation Comments Lymphocytes # (test code = Lymphocytes 1.6 1.0-5.5 #) [facility] HoustonEdhbozxHWIPUHFEJC4039-10-98 19:37:00 Test Item Value Reference Range Interpretation Comments Segs-Bands # (test code = Segs-Bands #) 6.5 1.5-8.1 [facility] HoustonQrstqozOIYINMIAUE8758-49-89 19:37:00 Test Item Value Reference Range Interpretation Comments Eosinophils # (test code 0.3 See_Comment [A utomated message] The = Eosinophils #) system whic h generated this result tra nsmitted reference range : <=0.5. The reference r kevin was not used to int erpret this result as normal/abnormal . [facility] HoustonYixyjzbXUWTLTCWRY0104-64-57 19:37:00 Test Item Value Reference Range Interpretation Comments Monocytes # (test code 0.6 See_Comment [Aut omated message] The = Monocytes #) system which generated this result tra nsmitted reference range : <=0.8. The reference r kevin was not used to int erpret this result as normal/abnormal . [facility] HoustonEuzwjefWJHVKKUGHY4305-95-29 19:37:00 Test Item Value Reference Range Interpretation Comments Basophils (test code = 0.6 See_Comment [Aut omated message] The Basophils) system which ge nerated this result tra nsmitted reference range : <=1.0. The reference r kevin was not used to int erpret this result as normal/abnormal . [facility] HoustonAqkoriuORAGGVZWJY0047-80-09 19:37:00 Test Item Value Reference Range Interpretation Comments Lymphocytes # (test code = Lymphocytes 1.6 1.0-5.5 #) [facility] HoustonCuhbkgzUHXBZHQAGV3932-71-47 19:37:00 Test Item Value Reference Range Interpretation Comments Monocytes (test code = Monocytes) 6.1 2.0-12.0 [facility] HoustonBbvgusqFWZYLXIMZP5656-66-25 19:37:00 Test Item Value Reference Range Interpretation Comments Eosinophils # (test code 0.3 See_Comment [A utomated message] The = Eosinophils #) system [facility] generated this result tra nsmitted reference range : <=0.5. The reference r kevin was not used to int erpret this result as normal/abnormal . [facility] HoustonBprxqcjYYRHYTEOVI0288-94-75 19:37:00 Test Item Value Reference Range Interpretation Comments Eosinophils (test code = 3.0 See_Comment [A utomated message] The Eosinophils) system which ge nerated this result tra nsmitted reference range : <=4.0. The reference r kevin was not used to int erpret this result as normal/abnormal . [facility] HoustonKhrhzdmBWNBDMSZDF0238-65-25 19:37:00 Test Item Value Reference Range Interpretation Comments Basophils (test code = 0.6 See_Comment [Aut omated message] The Basophils) system which ge nerated this result tra nsmitted reference range : <=1.0. The reference r kevin was not used to int erpret this result as normal/abnormal . [facility] HoustonMqdhqglMABGXINEGA4967-41-73 19:37:00 Test Item Value Reference Range Interpretation Comments Basophils # (test code 0.1 See_Comment [Aut omated message] The = Basophils #) system which generated this result tra nsmitted reference range : <=0.2. The reference r kevin was not used to int erpret this result as normal/abnormal . [facility] HoustonQphmovrAMNGRSAYVE6714-89-66 19:37:00 Test Item Value Reference Range Interpretation Comments Monocytes (test code = Monocytes) 6.1 2.0-12.0 [facility] HoustonChdvuuaTTADGMSGDT7621-25-05 19:37:00 Test Item Value Reference Range Interpretation Comments Lymphocytes (test code = Lymphocytes) 18.2 20.0-40.0 [facility] HoustonIobifojBBZULZKXAJ1548-04-09 19:37:00 Test Item Value Reference Range Interpretation Comments Segs (test code = Segs) 72.1 45.0-75.0 [facility] HoustonAdquigiABCNIFPNLW5438-54-67 19:37:00 Test Item Value Reference Range Interpretation Comments Eosinophils (test code = 3.0 See_Comment [A utomated message] The Eosinophils) system which ge nerated this result tra nsmitted reference range : <=4.0. The reference r kevin was not used to int erpret this result as normal/abnormal . [facility] HoustonCyorxcmNWZNJMKQNV3024-55-66 19:37:00 Test Item Value Reference Range Interpretation Comments aPTT (test code = aPTT) 31.4 s 22.9-35.8 [facility] HoustonQaswuxhUJKSOJQNUN9475-33-03 19:37:00 Test Item Value Reference Range Interpretation Comments Basophils # (test code 0.1 See_Comment [Aut omated message] The = Basophils #) system which generated this result tra nsmitted reference range : <=0.2. The reference r kevin was not used to int erpret this result as normal/abnormal . [facility] HoustonAbperubEXMMIGGQFU8518-28-38 19:37:00 Test Item Value Reference Range Interpretation Comments PROTIME (test code = PROTIME) 12.6 s 12.0-14.7 [facility] HoustonRaqvqpbWCYPQSAPPS6592-69-44 19:37:00 Test Item Value Reference Range Interpretation Comments Lymphocytes (test code = Lymphocytes) 18.2 20.0-40.0 [facility] HoustonXgbjvifOIFBNODDYG5785-27-34 19:37:00 Test Item Value Reference Range Interpretation Comments INR (test code = INR) 0.92 0.85-1.17 [facility] HoustonVrgdnjsSTPJJWPVLK9755-65-80 19:37:00 Test Item Value Reference Range Interpretation Comments Segs (test code = Segs) 72.1 45.0-75.0 [facility] HoustonOidlyhnXZESWTHGUP1885-92-74 19:37:00 Test Item Value Reference Range Interpretation Comments MCHC (test code = MCHC) 34.4 32.0-36.0 [facility] HoustonZttrvrlLDYTDAHLNK2516-87-45 19:37:00 Test Item Value Reference Range Interpretation Comments aPTT (test code = aPTT) 31.4 s 22.9-35.8 [facility] HoustonJqoieavYAPZSLWMXO4041-38-52 19:37:00 Test Item Value Reference Range Interpretation Comments MCH (test code = MCH) 31.1 pg 27.0-31.0 [facility] HoustonAkjssbgWBHCPYNYXZ4458-53-49 19:37:00 Test Item Value Reference Range Interpretation Comments PROTIME (test code = PROTIME) 12.6 s 12.0-14.7 [facility] HoustonVvnoedfTGUWKHDCGO4669-83-25 19:37:00 Test Item Value Reference Range Interpretation Comments WBC X 10x3 (test code = WBC X 10x3) 9.0 3.7-10.4 [facility] HoustonTahjubjMIVKUYYGEA2299-99-15 19:37:00 Test Item Value Reference Range Interpretation Comments INR (test code = INR) 0.92 0.85-1.17 [facility] HoustonVolhkvbDTSRGJLLKN6417-53-33 19:37:00 Test Item Value Reference Range Interpretation Comments RBC X 10x6 (test code = RBC X 10x6) 5.24 4.70-6.10 [facility] HoustonLlsicnnNPTCIBMEOY2610-76-62 19:37:00 Test Item Value Reference Range Interpretation Comments MCHC (test code = MCHC) 34.4 32.0-36.0 [facility] HoustonOcrrkduNOATIYXQAF9491-70-14 19:37:00 Test Item Value Reference Range Interpretation Comments Platelet (test code = Platelet) 334 133-450 [facility] HoustonIpbhenuNDOOCXCXFD6307-74-06 19:37:00 Test Item Value Reference Range Interpretation Comments MCH (test code = MCH) 31.1 pg 27.0-31.0 [facility] HoustonHsleiejALAARMGRRA0513-38-55 19:37:00 Test Item Value Reference Range Interpretation Comments RDW (test code = RDW) 14.3 11.5-14.5 [facility] HoustonHzlqghbBDMZJISSSI4912-13-68 19:37:00 Test Item Value Reference Range Interpretation Comments WBC X 10x3 (test code = WBC X 10x3) 9.0 3.7-10.4 [facility] HoustonWcbpysfCOVASCBIEF0218-76-13 19:37:00 Test Item Value Reference Range Interpretation Comments MPV (test code = MPV) 7.3 7.4-10.4 [facility] HoustonVvrjombBNJRBZFWHH7301-41-15 19:37:00 Test Item Value Reference Range Interpretation Comments RBC X 10x6 (test code = RBC X 10x6) 5.24 4.70-6.10 [facility] HoustonUlcjptbJMWOPSETWL4068-48-42 19:37:00 Test Item Value Reference Range Interpretation Comments Platelet (test code = Platelet) 334 133-450 [facility] HoustonQxfmvpgTNRFJNRIIU5058-23-69 19:37:00 Test Item Value Reference Range Interpretation Comments MCV (test code = MCV) 90.4 80.0-94.0 [facility] HoustonPybysztXDGKEGCVCL9029-53-64 19:37:00 Test Item Value Reference Range Interpretation Comments RDW (test code = RDW) 14.3 11.5-14.5 [facility] HoustonMhgzlruOHVSOFIKXI7169-56-87 19:37:00 Test Item Value Reference Range Interpretation Comments Hct (test code = Hct) 47.4 42.0-54.0 [facility] HoustonEjhwonyRKEUHMNQNW7626-95-40 19:37:00 Test Item Value Reference Range Interpretation Comments MPV (test code = MPV) 7.3 7.4-10.4 [facility] HoustonEexcubzIEYBGPUSFV1420-64-03 19:37:00 Test Item Value Reference Range Interpretation Comments Hgb (test code = Hgb) 16.3 14.0-18.0 [facility]IZPVJR7122-[facility]-27 19:37:00 Test Item Value Reference Range Interpretation Comments MCV (test code = MCV) 90.4 80.0-94.0 [facility] HoustonVzmhgpxEWCYIUHJYP9278-76-32 19:37:00 Test Item Value Reference Range Interpretation Comments Hct (test code = Hct) 47.4 42.0-54.0 [facility] HoustonAtyzrgqSDBDEAARBQ1829-01-11 19:37:00 Test Item Value Reference Range Interpretation Comments Hgb (test code = Hgb) 16.3 14.0-18.0 [facility] TQMBCNN6950-13-37 19:37:00 Test Item Value Reference Range Interpretation Comments Troponin-I (test code no gt See_Comment [Auto mated message] The = Troponin-I) system which g enerated this result transmit caio reference range : <=0.40. The reference r kevin was not used to interpr et this result as aileen l/abnormal. [facility] DFRAUWO6876-88-75 19:37:00 Test Item Value Reference Range Interpretation Comments CK MB (test code = CK MB) 7.4 0.5-3.6 [facility] [employer] FMYBMVO8614-24-06 19:37:00 Test Item Value Reference Range Interpretation Comments Total CK (test code = Total CK) 215 12-191 [facility] HospitalannCARSharecareAC IXQADIU5278-54-82 19:37:00 Test Item Value Reference Range Interpretation Comments CK-MB INDEX (test 3.4 See_Comment [Automate d message] The code = CK-MB INDEX) system w [facility] generated this result transmit caio reference range : <=2.5. The reference range was not used to interpr et this result as aileen l/abnormal. [facility] [place] [id number] 19:37:00 Test Item Value Reference Range Interpretation Comments A/G Ratio (test code = A/G Ratio) 1.1 0.7-1.6 [facility] [place] [id number] 19:37:00 Test Item Value Reference Range Interpretation Comments AGAP (test code = AGAP) 8.3 10.0-20.0 [facility] [place] [id number] 19:37:00 Test Item Value Reference Range Interpretation Comments Globulin (test code = Globulin) 3.6 2.7-4.2 [facility] [place] [id number] 19:37:00 Test Item Value Reference Range Interpretation Comments B/C Ratio (test code = B/C Ratio) 21 6-25 [facility] [place] [id number] 19:37:00 Test Item Value Reference Range Interpretation Comments eGFR (test code = eGFR) 93 [facility] [place] KFRSP5359-57-06 19:37:00 Test Item Value Reference Range Interpretation Comments Bili Total (test code = Bili Total) 0.4 0.2-1.3 [facility] [place] [id number] 19:37:00 Test Item Value Reference Range Interpretation Comments Alk Phos (test code = Alk Phos) 109 39-136 [facility] [place] [id number] 19:37:00 Test Item Value Reference Range Interpretation Comments ASPARTATE TRANSAMINASE 31 See_Comment [Aut omated message] (test code = ASPARTATE The s ystem which TRANSAMINASE) generated this result transmitted ref erence range: <=37. Th e reference range was not used to interpr et this result as normal/abnormal . [facility]2017-09-18 19:37:00 Test Item Value Reference Range Interpretation Comments ALANINE AMINOTRANSFERASE 40 See_Comment [A utomated message] (test code = ALANINE The sys tem which AMINOTRANSFERASE) generated this result transmitted ref erence range: <=65. Th e reference range was not used to int erpret this result as normal/abnormal . [facility]2017-09-18 19:37:00 Test Item Value Reference Range Interpretation Comments Total Protein (test code = Total 7.4 6.4-8.4 Protein) [facility]2017-09-18 19:37:00 Test Item Value Reference Range Interpretation Comments Albumin Lvl (test code = Albumin Lvl) 3.8 3.5-5.0 [facility]2017-09-18 19:37:00 Test Item Value Reference Range Interpretation Comments Calcium Lvl (test code = Calcium Lvl) 8.9 8.5-10.5 [facility]2017-09-18 19:37:00 Test Item Value Reference Range Interpretation Comments CO2 (test code = CO2) 28 24-32 [facility]2017-09-18 19:37:00 Test Item Value Reference Range Interpretation Comments Sodium Lvl (test code = Sodium Lvl) 138 135-145 [facility]2017-09-18 19:37:00 Test Item Value Reference Range Interpretation Comments Potassium Lvl (test code = Potassium 4.3 3.5-5.1 Lvl) [facility]2017-09-18 19:37:00 Test Item Value Reference Range Interpretation Comments Chloride Lvl (test code = Chloride Lvl) 106 95-109 [facility]2017-09-18 19:37:00 Test Item Value Reference Range Interpretation Comments Creatinine Lvl (test code = Creatinine 0.80 0.50-1.40 Lvl) [facility]2017-09-18 19:37:00 Test Item Value Reference Range Interpretation Comments BUN (test code = BUN) 17 7-22 [facility]2017-09-18 19:37:00 Test Item Value Reference Range Interpretation Comments Glucose Lvl (test code = Glucose Lvl) 109 70-99 [facility] HoustonGfnivedRQFWWVDYXT6997-53-46 19:37:00 Test Item Value Reference Range Interpretation Comments Segs-Bands # (test code = Segs-Bands #) 6.5 1.5-8.1 [facility] HoustonDywwvwdAIOXFYTPQR1836-89-01 19:37:00 Test Item Value Reference Range Interpretation Comments Monocytes # (test code 0.6 See_Comment [Aut omated message] The = Monocytes #) system which generated this result tra nsmitted reference range : <=0.8. The reference r kevin was not used to int erpret this result as normal/abnormal . [facility] HoustonUxlvmspUAOXTOQGVI9114-70-48 19:37:00 Test Item Value Reference Range Interpretation Comments Lymphocytes # (test code = Lymphocytes 1.6 1.0-5.5 #) [facility] HoustonSqwhbbsUWKUQNEERK9575-99-51 19:37:00 Test Item Value Reference Range Interpretation Comments Eosinophils # (test code 0.3 See_Comment [A utomated message] The = Eosinophils #) system [facility] h generated this result tra nsmitted reference range : <=0.5. The reference r kevin was not used to int erpret this result as normal/abnormal . [facility] HoustonRjwuwkcBIBFVAWWZO0456-09-29 19:37:00 Test Item Value Reference Range Interpretation Comments Basophils (test code = 0.6 See_Comment [Aut omated message] The Basophils) system which ge nerated this result tra nsmitted reference range : <=1.0. The reference r kevin was not used to int erpret this result as normal/abnormal . [facility] HoustonZvrrdyaVBAEDRPUEU0117-95-86 19:37:00 Test Item Value Reference Range Interpretation Comments Monocytes (test code = Monocytes) 6.1 2.0-12.0 [facility] HoustonLowrhclLRDLDVJUTV5577-92-50 19:37:00 Test Item Value Reference Range Interpretation Comments Eosinophils (test code = 3.0 See_Comment [A utomated message] The Eosinophils) system which ge nerated this result tra nsmitted reference range : <=4.0. The reference r kevin was not used to int erpret this result as normal/abnormal . [facility] HoustonYmznlxwBVUUCWRLPK0324-39-26 19:37:00 Test Item Value Reference Range Interpretation Comments Basophils # (test code 0.1 See_Comment [Aut omated message] The = Basophils #) system which generated this result tra nsmitted reference range : <=0.2. The reference r kevin was not used to int erpret this result as normal/abnormal . [facility] HoustonIvfkvbvSUSZWWASRX2217-19-90 19:37:00 Test Item Value Reference Range Interpretation Comments Lymphocytes (test code = Lymphocytes) 18.2 20.0-40.0 [facility] HoustonViyflnvFCSDSQRDXL6523-13-88 19:37:00 Test Item Value Reference Range Interpretation Comments Segs (test code = Segs) 72.1 45.0-75.0 [facility] HoustonRvhsyjjYQNSHOBAQE9466-61-23 19:37:00 Test Item Value Reference Range Interpretation Comments aPTT (test code = aPTT) 31.4 s 22.9-35.8 [facility] HoustonJmvqyjgQTRJYOGJVN8110-52-95 19:37:00 Test Item Value Reference Range Interpretation Comments PROTIME (test code = PROTIME) 12.6 s 12.0-14.7 [facility] HoustonFelpohtDGZLVUKEUA2573-78-98 19:37:00 Test Item Value Reference Range Interpretation Comments INR (test code = INR) 0.92 0.85-1.17 [facility] HoustonVhitwigSHWDLARHGN0488-00-72 19:37:00 Test Item Value Reference Range Interpretation Comments MCHC (test code = MCHC) 34.4 32.0-36.0 [facility] HoustonKirwltqGNFYJTHYKO1506-67-40 19:37:00 Test Item Value Reference Range Interpretation Comments MCH (test code = MCH) 31.1 pg 27.0-31.0 [facility] HoustonVouelzyISPXHFZDMH3282-66-45 19:37:00 Test Item Value Reference Range Interpretation Comments WBC X 10x3 (test code = WBC X 10x3) 9.0 3.7-10.4 [facility] HoustonPotqgadZCABDEVNWI9363-61-34 19:37:00 Test Item Value Reference Range Interpretation Comments RBC X 10x6 (test code = RBC X 10x6) 5.24 4.70-6.10 [facility] HoustonSjdfkesERBHKZXZKK4489-13-12 19:37:00 Test Item Value Reference Range Interpretation Comments Platelet (test code = Platelet) 334 133-450 [facility] HoustonLauduicHDBPMCBXRC6974-65-81 19:37:00 Test Item Value Reference Range Interpretation Comments RDW (test code = RDW) 14.3 11.5-14.5 [facility] HoustonLcivlmcXYVBBPZBBG5433-79-56 19:37:00 Test Item Value Reference Range Interpretation Comments MPV (test code = MPV) 7.3 7.4-10.4 [facility]WpdclblNFAPRPPOMP1794-78-36 19:37:00 Test Item Value Reference Range Interpretation Comments MCV (test code = MCV) 90.4 80.0-94.0 [facility] HospitalSvnimymYSEKBOPGPR3266-32-14 19:37:00 Test Item Value Reference Range Interpretation Comments Hct (test code = Hct) 47.4 42.0-54.0 [facility] HospitalSdpjpcfFAPRJXWUDO6795-39-90 19:37:00 Test Item Value Reference Range Interpretation Comments Hgb (test code = Hgb) 16.3 14.0-18.0 [facility]2017-09-18 19:37:00 Test Item Value Reference Range Interpretation Comments Troponin-I (test code no gt See_Comment [Auto mated message] The = Troponin-I) system which g enerated this result transmit caio reference range : <=0.40. The reference r kevin was not used to interpr et this result as aileen l/abnormal. [facility]2017-[facility]-18 19:37:00 Test Item Value Reference Range Interpretation Comments CK MB (test code = CK MB) 7.4 0.5-3.6 [facility] HospitalHybrentOHQOAPU2895-11-98 19:37:00 Test Item Value Reference Range Interpretation Comments Total CK (test code = Total CK) 215 12-191 [facility] [id number] 19:37:00 Test Item Value Reference Range Interpretation Comments CK-MB INDEX (test 3.4 See_Comment [Automate d message] The code = CK-MB INDEX) system [facility] generated this result transmit caio reference range : <=2.5. The reference range was not used to interpr et this result as aileen l/abnormal. [facility] [place] XTQXF2251-17-59 19:37:00 Test Item Value Reference Range Interpretation Comments A/G Ratio (test code = A/G Ratio) 1.1 0.7-1.6 [facility] [place] [id number] 19:37:00 Test Item Value Reference Range Interpretation Comments AGAP (test code = AGAP) 8.3 10.0-20.0 [place] [id number] 19:37:00 Test Item Value Reference Range Interpretation Comments Globulin (test code = Globulin) 3.6 2.7-4.2 [facility]2017-09-18 19:37:00 Test Item Value Reference Range Interpretation Comments B/C Ratio (test code = B/C Ratio) 21 6-25 [facility]2017-09-18 19:37:00 Test Item Value Reference Range Interpretation Comments eGFR (test code = eGFR) 93 [facility]2017-09-18 19:37:00 Test Item Value Reference Range Interpretation Comments Bili Total (test code = Bili Total) 0.4 0.2-1.3 [facility]2017-09-18 19:37:00 Test Item Value Reference Range Interpretation Comments Alk Phos (test code = Alk Phos) 109 39-136 [facility]2017-09-18 19:37:00 Test Item Value Reference Range Interpretation Comments ASPARTATE TRANSAMINASE 31 See_Comment [Aut omated message] (test code = ASPARTATE The s ystem which TRANSAMINASE) generated this result transmitted ref erence range: <=37. Th e reference range was not used to interpr et this result as normal/abnormal . [facility]2017-09-18 19:37:00 Test Item Value Reference Range Interpretation Comments ALANINE AMINOTRANSFERASE 40 See_Comment [A utomated message] (test code = ALANINE The sys tem which AMINOTRANSFERASE) generated this result transmitted ref erence range: <=65. Th e reference range was not used to int erpret this result as normal/abnormal . [facility]2017-09-18 19:37:00 Test Item Value Reference Range Interpretation Comments Total Protein (test code = Total 7.4 6.4-8.4 Protein) [facility]2017-09-18 19:37:00 Test Item Value Reference Range Interpretation Comments Albumin Lvl (test code = Albumin Lvl) 3.8 3.5-5.0 [place] [id number] 19:37:00 Test Item Value Reference Range Interpretation Comments Calcium Lvl (test code = Calcium Lvl) 8.9 8.5-10.5 [facility]2017-09-18 19:37:00 Test Item Value Reference Range Interpretation Comments CO2 (test code = CO2) 28 24-32 [place] 386757-09-18 19:37:00 Test Item Value Reference Range Interpretation Comments Sodium Lvl (test code = Sodium Lvl) 138 135-145 [facility]2017-09-18 19:37:00 Test Item Value Reference Range Interpretation Comments Potassium Lvl (test code = Potassium 4.3 3.5-5.1 Lvl) [facility]2017-09-18 19:37:00 Test Item Value Reference Range Interpretation Comments Chloride Lvl (test code = Chloride Lvl) 106 95-109 [facility]2017-09-18 19:37:00 Test Item Value Reference Range Interpretation Comments Creatinine Lvl (test code = Creatinine 0.80 0.50-1.40 Lvl) [facility]2017-09-18 19:37:00 Test Item Value Reference Range Interpretation Comments BUN (test code = BUN) 17 7-22 [facility]2017-09-18 19:37:00 Test Item Value Reference Range Interpretation Comments Glucose Lvl (test code = Glucose Lvl) 109 70-99 [facility] HoustonChupfiqXTQPZDNTKC7230-66-26 19:37:00 Test Item Value Reference Range Interpretation Comments Segs-Bands # (test code = Segs-Bands #) 6.5 1.5-8.1 [facility] HoustonFcpfplmMDFZNBZONY3752-52-82 19:37:00 Test Item Value Reference Range Interpretation Comments Monocytes # (test code 0.6 See_Comment [Aut omated message] The = Monocytes #) system which generated this result tra nsmitted reference range : <=0.8. The reference r kevin was not used to int erpret this result as normal/abnormal . [facility] HoustonDsueorhCJIGXTXXJG2013-91-61 19:37:00 Test Item Value Reference Range Interpretation Comments Lymphocytes # (test code = Lymphocytes 1.6 1.0-5.5 #) [facility] HoustonAttbllxLHTDFLFUJM6188-79-09 19:37:00 Test Item Value Reference Range Interpretation Comments Eosinophils # (test code 0.3 See_Comment [A utomated message] The = Eosinophils #) system whic h generated this result tra nsmitted reference range : <=0.5. The reference r kevin was not used to int erpret this result as normal/abnormal . [facility] HoustonFmhpuwiUAMMVLCBSK4514-50-41 19:37:00 Test Item Value Reference Range Interpretation Comments Basophils (test code = 0.6 See_Comment [Aut omated message] The Basophils) system which ge nerated this result tra nsmitted reference range : <=1.0. The reference r kevin was not used to int erpret this result as normal/abnormal . [facility] HoustonEswdebrDSZXRCLRWW9438-76-54 19:37:00 Test Item Value Reference Range Interpretation Comments Monocytes (test code = Monocytes) 6.1 2.0-12.0 [facility] HoustonWhexjkgVTPVJEEXYR5638-51-64 19:37:00 Test Item Value Reference Range Interpretation Comments Eosinophils (test code = 3.0 See_Comment [A utomated message] The Eosinophils) system which ge nerated this result tra nsmitted reference range : <=4.0. The reference r kevin was not used to int erpret this result as normal/abnormal . [facility] HoustonChqwoeuPGPIQLDWWY0451-84-88 19:37:00 Test Item Value Reference Range Interpretation Comments Basophils # (test code 0.1 See_Comment [Aut omated message] The = Basophils #) system which generated this result tra nsmitted reference range : <=0.2. The reference r kevin was not used to int erpret this result as normal/abnormal . [facility] HoustonSdbocvnXDFRGPSZTE1171-16-39 19:37:00 Test Item Value Reference Range Interpretation Comments Lymphocytes (test code = Lymphocytes) 18.2 20.0-40.0 [facility] HoustonGjsnootCJBQLGSDYC0254-16-82 19:37:00 Test Item Value Reference Range Interpretation Comments Segs (test code = Segs) 72.1 45.0-75.0 [facility] HoustonLwddrvdVIKEIEEZBZ5277-57-52 19:37:00 Test Item Value Reference Range Interpretation Comments aPTT (test code = aPTT) 31.4 s 22.9-35.8 [facility] HoustonKtifkhuSVJJUHHMXW6411-83-37 19:37:00 Test Item Value Reference Range Interpretation Comments PROTIME (test code = PROTIME) 12.6 s 12.0-14.7 [facility] HoustonRrbirvlFHVXZXBDFF2224-52-41 19:37:00 Test Item Value Reference Range Interpretation Comments INR (test code = INR) 0.92 0.85-1.17 [facility] HoustonFcktliaGRIUEIHJQV6785-82-58 19:37:00 Test Item Value Reference Range Interpretation Comments MCHC (test code = MCHC) 34.4 32.0-36.0 [facility] HoustonIuulcldUPACFPXVPQ2832-15-32 19:37:00 Test Item Value Reference Range Interpretation Comments MCH (test code = MCH) 31.1 pg 27.0-31.0 [facility] HoustonKxmrwvuJANXCCFUSX0060-61-46 19:37:00 Test Item Value Reference Range Interpretation Comments WBC X 10x3 (test code = WBC X 10x3) 9.0 3.7-10.4 [facility] HoustonSbownyjPUUFZWDGNA1197-33-69 19:37:00 Test Item Value Reference Range Interpretation Comments RBC X 10x6 (test code = RBC X 10x6) 5.24 4.70-6.10 [facility] HoustonLiyjdfsWMQJXTVCAB0109-72-48 19:37:00 Test Item Value Reference Range Interpretation Comments Platelet (test code = Platelet) 334 133-450 [facility] HoustonFzxtlksBPFTCZVXJP0858-20-90 19:37:00 Test Item Value Reference Range Interpretation Comments RDW (test code = RDW) 14.3 11.5-14.5 [facility] HoustonXfascnqMEMICGZRAF9909-37-33 19:37:00 Test Item Value Reference Range Interpretation Comments MPV (test code = MPV) 7.3 7.4-10.4 [facility] HoustonWuhmaqcPJYUXFWIHN5153-50-34 19:37:00 Test Item Value Reference Range Interpretation Comments MCV (test code = MCV) 90.4 80.0-94.0 [facility] HoustonOemdrwcQEOJITQPNV7469-98-68 19:37:00 Test Item Value Reference Range Interpretation Comments Hct (test code = Hct) 47.4 42.0-54.0 [facility] HoustonZvbmhutWQWNJMAQVN3496-34-57 19:37:00 Test Item Value Reference Range Interpretation Comments Hgb (test code = Hgb) 16.3 14.0-18.0 [facility] HoustonLykquptBTIKURHLWP9028-06-55 19:37:00 Test Item Value Reference Range Interpretation Comments Monocytes # (test code 0.6 See_Comment [Aut omated message] The = Monocytes #) system which generated this result tra nsmitted reference range : <=0.8. The reference r kevin was not used to int erpret this result as normal/abnormal . [facility] HoustonGrnvlhiNQOLOYRHRX1140-12-20 19:37:00 Test Item Value Reference Range Interpretation Comments Lymphocytes # (test code = Lymphocytes 1.6 1.0-5.5 #) [facility] HoustonYsrxjpjRBBASVENRB0345-87-99 19:37:00 Test Item Value Reference Range Interpretation Comments Eosinophils # (test code 0.3 See_Comment [A utomated message] The = Eosinophils #) system [facility] h generated this result tra nsmitted reference range : <=0.5. The reference r kevin was not used to int erpret this result as normal/abnormal . [facility] HoustonGuprthfDKLGNACMPN6564-86-09 19:37:00 Test Item Value Reference Range Interpretation Comments Basophils (test code = 0.6 See_Comment [Aut omated message] The Basophils) system which ge nerated this result tra nsmitted reference range : <=1.0. The reference r kevin was not used to int erpret this result as normal/abnormal . [facility] HoustonAqskmgmKEOIBGTXCV2578-96-70 19:37:00 Test Item Value Reference Range Interpretation Comments Monocytes (test code = Monocytes) 6.1 2.0-12.0 [facility] HoustonZefhqcrPDSOVBIKAG0958-17-66 19:37:00 Test Item Value Reference Range Interpretation Comments Eosinophils (test code = 3.0 See_Comment [A utomated message] The Eosinophils) system which ge nerated this result tra nsmitted reference range : <=4.0. The reference r kevin was not used to int erpret this result as normal/abnormal . [facility] HoustonOcrkahyIVNWLIANHG1783-94-21 19:37:00 Test Item Value Reference Range Interpretation Comments Basophils # (test code 0.1 See_Comment [Aut omated message] The = Basophils #) system which generated this result tra nsmitted reference range : <=0.2. The reference r kevin was not used to int erpret this result as normal/abnormal . [facility] HoustonFslrtmmXYXFANWDVE6953-02-22 19:37:00 Test Item Value Reference Range Interpretation Comments Lymphocytes (test code = Lymphocytes) 18.2 20.0-40.0 [facility] HoustonHclndugGILCBYKRWV2111-46-64 19:37:00 Test Item Value Reference Range Interpretation Comments Segs (test code = Segs) 72.1 45.0-75.0 [facility] HoustonGxlqhvtZMOXRDLHRJ6320-64-04 19:37:00 Test Item Value Reference Range Interpretation Comments aPTT (test code = aPTT) 31.4 s 22.9-35.8 [facility] HoustonNuangvxQNTDLEMETM0230-23-10 19:37:00 Test Item Value Reference Range Interpretation Comments PROTIME (test code = PROTIME) 12.6 s 12.0-14.7 [facility] HoustonAkbbdhqNCZOXPTNJH0734-77-40 19:37:00 Test Item Value Reference Range Interpretation Comments INR (test code = INR) 0.92 0.85-1.17 [facility] HoustonUvzbsraKIGSTXTSAK6501-61-52 19:37:00 Test Item Value Reference Range Interpretation Comments MCHC (test code = MCHC) 34.4 32.0-36.0 [facility] HoustonZfcvdsgSSALGBXHKK2181-20-25 19:37:00 Test Item Value Reference Range Interpretation Comments MCH (test code = MCH) 31.1 pg 27.0-31.0 [facility] HoustonWgytxhaKDYPJKXNVI6778-79-49 19:37:00 Test Item Value Reference Range Interpretation Comments WBC X 10x3 (test code = WBC X 10x3) 9.0 3.7-10.4 [facility] HoustonMleonsnCRORUNJXIY1016-66-95 19:37:00 Test Item Value Reference Range Interpretation Comments RBC X 10x6 (test code = RBC X 10x6) 5.24 4.70-6.10 [facility] HoustonYndkgxsWJHXFCQJQV0451-32-57 19:37:00 Test Item Value Reference Range Interpretation Comments Platelet (test code = Platelet) 334 133-450 [facility] HoustonFyujtdqEGOSICOVGX6046-55-47 19:37:00 Test Item Value Reference Range Interpretation Comments RDW (test code = RDW) 14.3 11.5-14.5 [facility] HoustonMqprplfDTCAZGDOBD1867-42-42 19:37:00 Test Item Value Reference Range Interpretation Comments MPV (test code = MPV) 7.3 7.4-10.4 [facility] HoustonHpshoxkCERJOLDKAX4622-48-53 19:37:00 Test Item Value Reference Range Interpretation Comments MCV (test code = MCV) 90.4 80.0-94.0 [facility] HoustonXmuxtggQGCBNHIDHG2666-33-36 19:37:00 Test Item Value Reference Range Interpretation Comments Hct (test code = Hct) 47.4 42.0-54.0 [facility] HoustonLjuccjvNQSJGLAZUQ0710-79-38 19:37:00 Test Item Value Reference Range Interpretation Comments Hgb (test code = Hgb) 16.3 14.0-18.0 [facility] [employer] FGFVEJO0437-68-30 19:37:00 Test Item Value Reference Range Interpretation Comments Troponin-I (test code no gt See_Comment [Auto mated message] The = Troponin-I) system which g enerated this result transmit caio reference range : <=0.40. The reference r kevin was not used to interpr et this result as aileen l/abnormal. [facility] [employer] KQOGFUF8046-66-46 19:37:00 Test Item Value Reference Range Interpretation Comments CK MB (test code = CK MB) 7.4 0.5-3.6 [facility] HospitalTalkApolis PULNDID8550-00-59 19:37:00 Test Item Value Reference Range Interpretation Comments Total CK (test code = Total CK) 215 12-191 [facility] HospitalTalkApolis BNYBSSV7101-47-79 19:37:00 Test Item Value Reference Range Interpretation Comments CK-MB INDEX (test 3.4 See_Comment [Automate d message] The code = CK-MB INDEX) system [facility] generated this result transmit caio reference range : <=2.5. The reference range was not used to interpr et this result as aileen l/abnormal. [facility] [employer]2017-09-18 19:37:00 Test Item Value Reference Range Interpretation Comments A/G Ratio (test code = A/G Ratio) 1.1 0.7-1.6 [facility] [place] IESRC0313-17-70 19:37:00 Test Item Value Reference Range Interpretation Comments AGAP (test code = AGAP) 8.3 10.0-20.0 [facility] [place] [id number] 19:37:00 Test Item Value Reference Range Interpretation Comments Globulin (test code = Globulin) 3.6 2.7-4.2 [facility] [employer]2017-09-18 19:37:00 Test Item Value Reference Range Interpretation Comments B/C Ratio (test code = B/C Ratio) 21 6-25 [facility] [place] CCJDP1029-94-02 19:37:00 Test Item Value Reference Range Interpretation Comments eGFR (test code = eGFR) 93 [facility] [employer]2017-09-18 19:37:00 Test Item Value Reference Range Interpretation Comments Bili Total (test code = Bili Total) 0.4 0.2-1.3 [facility]2017-09-18 19:37:00 Test Item Value Reference Range Interpretation Comments Alk Phos (test code = Alk Phos) 109 39-136 [facility]2017-09-18 19:37:00 Test Item Value Reference Range Interpretation Comments ASPARTATE TRANSAMINASE 31 See_Comment [Aut omated message] (test code = ASPARTATE The s ystem which TRANSAMINASE) generated this result transmitted ref erence range: <=37. Th e reference range was not used to interpr et this result as normal/abnormal . [facility]2017-09-18 19:37:00 Test Item Value Reference Range Interpretation Comments ALANINE AMINOTRANSFERASE 40 See_Comment [A utomated message] (test code = ALANINE The sys tem which AMINOTRANSFERASE) generated this result transmitted ref erence range: <=65. Th e reference range was not used to int erpret this result as normal/abnormal . [facility]2017-09-18 19:37:00 Test Item Value Reference Range Interpretation Comments Total Protein (test code = Total 7.4 6.4-8.4 Protein) [facility]2017-09-18 19:37:00 Test Item Value Reference Range Interpretation Comments Albumin Lvl (test code = Albumin Lvl) 3.8 3.5-5.0 [facility]2017-09-18 19:37:00 Test Item Value Reference Range Interpretation Comments Calcium Lvl (test code = Calcium Lvl) 8.9 8.5-10.5 [facility]2017-09-18 19:37:00 Test Item Value Reference Range Interpretation Comments CO2 (test code = CO2) 28 24-32 [facility]2017-09-18 19:37:00 Test Item Value Reference Range Interpretation Comments Sodium Lvl (test code = Sodium Lvl) 138 135-145 [facility]2017-09-18 19:37:00 Test Item Value Reference Range Interpretation Comments Potassium Lvl (test code = Potassium 4.3 3.5-5.1 Lvl) [facility]2017-09-18 19:37:00 Test Item Value Reference Range Interpretation Comments Chloride Lvl (test code = Chloride Lvl) 106 95-109 [facility]2017-09-18 19:37:00 Test Item Value Reference Range Interpretation Comments Creatinine Lvl (test code = Creatinine 0.80 0.50-1.40 Lvl) [facility]2017-09-18 19:37:00 Test Item Value Reference Range Interpretation Comments BUN (test code = BUN) 17 7-22 [facility]2017-09-18 19:37:00 Test Item Value Reference Range Interpretation Comments Glucose Lvl (test code = Glucose Lvl) 109 70-99 [facility] HoustonFvytvcaVDQRCSOAEH4169-77-61 19:37:00 Test Item Value Reference Range Interpretation Comments Segs-Bands # (test code = Segs-Bands #) 6.5 1.5-8.1 [facility] HoustonGplbogsQBMBPTRZHS8996-12-26 19:37:00 Test Item Value Reference Range Interpretation Comments Monocytes # (test code 0.6 See_Comment [Aut omated message] The = Monocytes #) system which generated this result tra nsmitted reference range : <=0.8. The reference r kevin was not used to int erpret this result as normal/abnormal . [facility] HoustonZbkfwniSROEWEAVTC8185-70-22 19:37:00 Test Item Value Reference Range Interpretation Comments Lymphocytes # (test code = Lymphocytes 1.6 1.0-5.5 #) [facility] HoustonLknxqqqBAJWDLWIEQ5815-78-73 19:37:00 Test Item Value Reference Range Interpretation Comments Eosinophils # (test code 0.3 See_Comment [A utomated message] The = Eosinophils #) system ic h generated this result tra nsmitted reference range : <=0.5. The reference r kevin was not used to int erpret this result as normal/abnormal . [facility] HoustonMzcmmdjONGSPBUKAK2331-95-24 19:37:00 Test Item Value Reference Range Interpretation Comments Basophils (test code = 0.6 See_Comment [Aut omated message] The Basophils) system which ge nerated this result tra nsmitted reference range : <=1.0. The reference r kevin was not used to int erpret this result as normal/abnormal . [facility]HjfkgqlKGRHJSWYGR1288-78-06 19:37:00 Test Item Value Reference Range Interpretation Comments Monocytes (test code = Monocytes) 6.1 2.0-12.0 [facility] HoustonZzsyiffAGMLYAEVPS5872-62-72 19:37:00 Test Item Value Reference Range Interpretation Comments Eosinophils (test code = 3.0 See_Comment [A utomated message] The Eosinophils) system which ge nerated this result tra nsmitted reference range : <=4.0. The reference r kevin was not used to int erpret this result as normal/abnormal . [facility] HoustonZhxoqnyVSBSRCJLOI8743-12-81 19:37:00 Test Item Value Reference Range Interpretation Comments Basophils # (test code 0.1 See_Comment [Aut omated message] The = Basophils #) system which generated this result tra nsmitted reference range : <=0.2. The reference r kevin was not used to int erpret this result as normal/abnormal . [facility] HoustonBzuwxxiWDWCOUPCGD7725-84-65 19:37:00 Test Item Value Reference Range Interpretation Comments Lymphocytes (test code = Lymphocytes) 18.2 20.0-40.0 [facility] HoustonXimnhclWUZDNYYRHZ4573-71-80 19:37:00 Test Item Value Reference Range Interpretation Comments Segs (test code = Segs) 72.1 45.0-75.0 [facility] HoustonObcztpjKZGXHNSOAK1772-17-00 19:37:00 Test Item Value Reference Range Interpretation Comments aPTT (test code = aPTT) 31.4 s 22.9-35.8 [facility] HoustonBpnvcyuKWHNCXANSD2527-34-03 19:37:00 Test Item Value Reference Range Interpretation Comments PROTIME (test code = PROTIME) 12.6 s 12.0-14.7 [facility] HoustonEstnkpqMRNVUIPZHX7951-58-01 19:37:00 Test Item Value Reference Range Interpretation Comments INR (test code = INR) 0.92 0.85-1.17 [facility] HoustonEdbcygzDUCOETAXOT6136-47-56 19:37:00 Test Item Value Reference Range Interpretation Comments MCHC (test code = MCHC) 34.4 32.0-36.0 [facility] HoustonSovtmcwMSEXKOCDEY6634-94-98 19:37:00 Test Item Value Reference Range Interpretation Comments MCH (test code = MCH) 31.1 pg 27.0-31.0 [facility] HoustonIqjvzybUOLOZCHWUB7725-97-69 19:37:00 Test Item Value Reference Range Interpretation Comments WBC X 10x3 (test code = WBC X 10x3) 9.0 3.7-10.4 [facility]ISSNAINV2516-50-38 19:37:00 Test Item Value Reference Range Interpretation Comments RBC X 10x6 (test code = RBC X 10x6) 5.24 4.70-6.10 [facility]KqjzcthDDAUUEMKVH3007-51-29 19:37:00 Test Item Value Reference Range Interpretation Comments Platelet (test code = Platelet) 334 133-450 [facility] SystemCzdhovvYUNLHWXAYU0721-17-74 19:37:00 Test Item Value Reference Range Interpretation Comments RDW (test code = RDW) 14.3 11.5-14.5 [facility] SystemLsbiwznGGBQUEVFLP8211-08-79 19:37:00 Test Item Value Reference Range Interpretation Comments MPV (test code = MPV) 7.3 7.4-10.4 [facility] HoustonGilotdrETLULVGEKJ7609-09-88 19:37:00 Test Item Value Reference Range Interpretation Comments MCV (test code = MCV) 90.4 80.0-94.0 [facility] HoustonKkmrqayJFABRWRTTY9256-05-45 19:37:00 Test Item Value Reference Range Interpretation Comments Hct (test code = Hct) 47.4 42.0-54.0 [facility]UtqmwpzVKTQELKXEH4998-69-00 19:37:00 Test Item Value Reference Range Interpretation Comments Hgb (test code = Hgb) 16.3 14.0-18.0 [facility] VHKXGYY7339-28-58 19:37:00 Test Item Value Reference Range Interpretation Comments Troponin-I (test code no gt See_Comment [Auto mated message] The = Troponin-I) system which g enerated this result transmit caio reference range : <=0.40. The reference r kevin was not used to interpr et this result as aileen l/abnormal. [facility] VUQTYQE7741-12-33 19:37:00 Test Item Value Reference Range Interpretation Comments CK MB (test code = CK MB) 7.4 0.5-3.6 [facility] MKSLZJH4268-76-84 19:37:00 Test Item Value Reference Range Interpretation Comments Total CK (test code = Total CK) 215 12-191 [facility] XQPFKXG8524-08-79 19:37:00 Test Item Value Reference Range Interpretation Comments CK-MB INDEX (test 3.4 See_Comment [Automate d message] The code = CK-MB INDEX) system w hich generated this result transmit caio reference range : <=2.5. The reference range was not used to interpr et this result as aileen l/abnormal. [facility]2017-09-18 19:37:00 Test Item Value Reference Range Interpretation Comments A/G Ratio (test code = A/G Ratio) 1.1 0.7-1.6 [facility]2017-09-18 19:37:00 Test Item Value Reference Range Interpretation Comments AGAP (test code = AGAP) 8.3 10.0-20.0 [facility]2017-09-18 19:37:00 Test Item Value Reference Range Interpretation Comments Globulin (test code = Globulin) 3.6 2.7-4.2 [facility]2017-09-18 19:37:00 Test Item Value Reference Range Interpretation Comments B/C Ratio (test code = B/C Ratio) 21 6-25 [facility]2017-09-18 19:37:00 Test Item Value Reference Range Interpretation Comments eGFR (test code = eGFR) 93 [facility]2017-09-18 19:37:00 Test Item Value Reference Range Interpretation Comments Bili Total (test code = Bili Total) 0.4 0.2-1.3 [facility]2017-09-18 19:37:00 Test Item Value Reference Range Interpretation Comments Alk Phos (test code = Alk Phos) 109 39-136 [facility]2017-09-18 19:37:00 Test Item Value Reference Range Interpretation Comments ASPARTATE TRANSAMINASE 31 See_Comment [Aut omated message] (test code = ASPARTATE The s ystem which TRANSAMINASE) generated this result transmitted ref erence range: <=37. Th e reference range was not used to interpr et this result as normal/abnormal . [facility]2017-09-18 19:37:00 Test Item Value Reference Range Interpretation Comments ALANINE AMINOTRANSFERASE 40 See_Comment [A utomated message] (test code = ALANINE The sys tem which AMINOTRANSFERASE) generated this result transmitted ref erence range: <=65. Th e reference range was not used to int erpret this result as normal/abnormal . [facility]2017-09-18 19:37:00 Test Item Value Reference Range Interpretation Comments Total Protein (test code = Total 7.4 6.4-8.4 Protein) [facility]2017-09-18 19:37:00 Test Item Value Reference Range Interpretation Comments Albumin Lvl (test code = Albumin Lvl) 3.8 3.5-5.0 [facility]2017-09-18 19:37:00 Test Item Value Reference Range Interpretation Comments Calcium Lvl (test code = Calcium Lvl) 8.9 8.5-10.5 [facility]2017-09-18 19:37:00 Test Item Value Reference Range Interpretation Comments CO2 (test code = CO2) 28 24-32 [facility]2017-09-18 19:37:00 Test Item Value Reference Range Interpretation Comments Sodium Lvl (test code = Sodium Lvl) 138 135-145 [facility]2017-09-18 19:37:00 Test Item Value Reference Range Interpretation Comments Potassium Lvl (test code = Potassium 4.3 3.5-5.1 Lvl) [facility]2017-09-18 19:37:00 Test Item Value Reference Range Interpretation Comments Chloride Lvl (test code = Chloride Lvl) 106 95-109 [facility]2017-09-18 19:37:00 Test Item Value Reference Range Interpretation Comments Creatinine Lvl (test code = Creatinine 0.80 0.50-1.40 Lvl) [facility]2017-09-18 19:37:00 Test Item Value Reference Range Interpretation Comments BUN (test code = BUN) 17 7-22 [facility]2017-09-18 19:37:00 Test Item Value Reference Range Interpretation Comments Glucose Lvl (test code = Glucose Lvl) 109 70-99 [facility] HoustonWgljiycLKVNFZZHTM6840-84-89 19:37:00 Test Item Value Reference Range Interpretation Comments Segs-Bands # (test code = Segs-Bands #) 6.5 1.5-8.1 [facility] HoustonTenvfdvUOEQVXKTLT8072-83-41 19:37:00 Test Item Value Reference Range Interpretation Comments Monocytes # (test code 0.6 See_Comment [Aut omated message] The = Monocytes #) system which generated this result tra nsmitted reference range : <=0.8. The reference r kevin was not used to int erpret this result as normal/abnormal . [facility] HoustonWdlvhhnXQQBENLMXY5278-75-05 19:37:00 Test Item Value Reference Range Interpretation Comments Lymphocytes # (test code = Lymphocytes 1.6 1.0-5.5 #) [facility] HoustonVjmkdsqALWOWZDKIK9387-52-19 19:37:00 Test Item Value Reference Range Interpretation Comments Eosinophils # (test code 0.3 See_Comment [A utomated message] The = Eosinophils #) system wh h generated this result tra nsmitted reference range : <=0.5. The reference r kevin was not used to int erpret this result as normal/abnormal . [facility] HoustonOdkgtbrSHTQOIKADW6335-81-10 19:37:00 Test Item Value Reference Range Interpretation Comments Basophils (test code = 0.6 See_Comment [Aut omated message] The Basophils) system which ge nerated this result tra nsmitted reference range : <=1.0. The reference r kevin was not used to int erpret this result as normal/abnormal . [facility] HoustonCaxtuybHJJPZUQSUG7613-38-47 19:37:00 Test Item Value Reference Range Interpretation Comments Monocytes (test code = Monocytes) 6.1 2.0-12.0 [facility] HoustonJvdzlqsYFPVBDSPIT3792-37-10 19:37:00 Test Item Value Reference Range Interpretation Comments Eosinophils (test code = 3.0 See_Comment [A utomated message] The Eosinophils) system which ge nerated this result tra nsmitted reference range : <=4.0. The reference r kevin was not used to int erpret this result as normal/abnormal . [facility] HoustonRwizdsqBUOYQPHGGZ0173-87-88 19:37:00 Test Item Value Reference Range Interpretation Comments Basophils # (test code 0.1 See_Comment [Aut omated message] The = Basophils #) system which generated this result tra nsmitted reference range : <=0.2. The reference r kevin was not used to int erpret this result as normal/abnormal . [facility] HoustonMbvsjkiVHSERNHZXW3096-51-71 19:37:00 Test Item Value Reference Range Interpretation Comments Lymphocytes (test code = Lymphocytes) 18.2 20.0-40.0 [facility] HoustonYxkkitzOYSZRSITZD4306-14-13 19:37:00 Test Item Value Reference Range Interpretation Comments Segs (test code = Segs) 72.1 45.0-75.0 [facility] HoustonFheyahfAAWUXEQJYC4039-37-60 19:37:00 Test Item Value Reference Range Interpretation Comments aPTT (test code = aPTT) 31.4 s 22.9-35.8 [facility] HoustonMyefablSNGUQQHMQP2193-52-26 19:37:00 Test Item Value Reference Range Interpretation Comments PROTIME (test code = PROTIME) 12.6 s 12.0-14.7 [facility] HoustonFwhwtjfAKABOWLZYP3284-46-65 19:37:00 Test Item Value Reference Range Interpretation Comments INR (test code = INR) 0.92 0.85-1.17 [facility] HoustonRubhubfBWIZUJQJHA0994-44-17 19:37:00 Test Item Value Reference Range Interpretation Comments MCHC (test code = MCHC) 34.4 32.0-36.0 [facility] HoustonEmvsfapABXQZVFGMU9622-30-99 19:37:00 Test Item Value Reference Range Interpretation Comments MCH (test code = MCH) 31.1 pg 27.0-31.0 [facility] HoustonPafitozQBILPJVVCB1703-13-39 19:37:00 Test Item Value Reference Range Interpretation Comments WBC X 10x3 (test code = WBC X 10x3) 9.0 3.7-10.4 [facility] HoustonFdkgyyrSNWMENPCIX1105-33-21 19:37:00 Test Item Value Reference Range Interpretation Comments RBC X 10x6 (test code = RBC X 10x6) 5.24 4.70-6.10 [facility] HoustonNwudzlbOUSRKRBWGS9775-47-44 19:37:00 Test Item Value Reference Range Interpretation Comments Platelet (test code = Platelet) 334 133-450 [facility] HoustonYmnlakjABPSEGMUHJ2418-67-03 19:37:00 Test Item Value Reference Range Interpretation Comments RDW (test code = RDW) 14.3 11.5-14.5 [facility] HoustonZrtmehgMGSIBZZJYY4175-82-66 19:37:00 Test Item Value Reference Range Interpretation Comments MPV (test code = MPV) 7.3 7.4-10.4 [facility] HoustonJczohaiYLSHPTSHSK6250-93-57 19:37:00 Test Item Value Reference Range Interpretation Comments MCV (test code = MCV) 90.4 80.0-94.0 [facility] HoustonOtuqtsiNLQBQNIWKH2705-56-62 19:37:00 Test Item Value Reference Range Interpretation Comments Hct (test code = Hct) 47.4 42.0-54.0 [facility] EbglcdnBHSBVIYRSX7730-01-30 19:37:00 Test Item Value Reference Range Interpretation Comments Hgb (test code = Hgb) 16.3 14.0-18.0 [facility] [employer] KFXFAPV0347-08-48 19:37:00 Test Item Value Reference Range Interpretation Comments Troponin-I (test code no gt See_Comment [Auto mated message] The = Troponin-I) system which g enerated this result transmit caio reference range : <=0.40. The reference r kevin was not used to interpr et this result as aileen l/abnormal. [facility] [employer] OSCQUYZ8903-41-74 19:37:00 Test Item Value Reference Range Interpretation Comments CK MB (test code = CK MB) 7.4 0.5-3.6 [facility] CLOOQVN0517-92-75 19:37:00 Test Item Value Reference Range Interpretation Comments Total CK (test code = Total CK) 215 12-191 [facility] QQCXZAX0445-22-66 19:37:00 Test Item Value Reference Range Interpretation Comments CK-MB INDEX (test 3.4 See_Comment [Automate d message] The code = CK-MB INDEX) system w [facility] generated this result transmit caio reference range : <=2.5. The reference range was not used to interpr et this result as aileen l/abnormal. [facility] [employer]2017-09-18 19:37:00 Test Item Value Reference Range Interpretation Comments A/G Ratio (test code = A/G Ratio) 1.1 0.7-1.6 [facility] [place] [id number] 19:37:00 Test Item Value Reference Range Interpretation Comments AGAP (test code = AGAP) 8.3 10.0-20.0 [facility] [place] [id number] 19:37:00 Test Item Value Reference Range Interpretation Comments Globulin (test code = Globulin) 3.6 2.7-4.2 [facility] [place] [id number] 19:37:00 Test Item Value Reference Range Interpretation Comments B/C Ratio (test code = B/C Ratio) 21 6-25 [facility] [place] XVYWI9622-72-09 19:37:00 Test Item Value Reference Range Interpretation Comments eGFR (test code = eGFR) 93 [facility]2017-09-18 19:37:00 Test Item Value Reference Range Interpretation Comments Bili Total (test code = Bili Total) 0.4 0.2-1.3 [facility]2017-09-18 19:37:00 Test Item Value Reference Range Interpretation Comments Alk Phos (test code = Alk Phos) 109 39-136 [facility]2017-09-18 19:37:00 Test Item Value Reference Range Interpretation Comments ASPARTATE TRANSAMINASE 31 See_Comment [Aut omated message] (test code = ASPARTATE The s ystem which TRANSAMINASE) generated this result transmitted ref erence range: <=37. Th e reference range was not used to interpr et this result as normal/abnormal . [facility]2017-09-18 19:37:00 Test Item Value Reference Range Interpretation Comments ALANINE AMINOTRANSFERASE 40 See_Comment [A utomated message] (test code = ALANINE The sys tem which AMINOTRANSFERASE) generated this result transmitted ref erence range: <=65. Th e reference range was not used to int erpret this result as normal/abnormal . [facility]2017-09-18 19:37:00 Test Item Value Reference Range Interpretation Comments Total Protein (test code = Total 7.4 6.4-8.4 Protein) [facility]2017-09-18 19:37:00 Test Item Value Reference Range Interpretation Comments Albumin Lvl (test code = Albumin Lvl) 3.8 3.5-5.0 [facility]2017-09-18 19:37:00 Test Item Value Reference Range Interpretation Comments Calcium Lvl (test code = Calcium Lvl) 8.9 8.5-10.5 [facility]2017-09-18 19:37:00 Test Item Value Reference Range Interpretation Comments CO2 (test code = CO2) 28 24-32 [facility]2017-09-18 19:37:00 Test Item Value Reference Range Interpretation Comments Sodium Lvl (test code = Sodium Lvl) 138 135-145 [facility]2017-09-18 19:37:00 Test Item Value Reference Range Interpretation Comments Potassium Lvl (test code = Potassium 4.3 3.5-5.1 Lvl) [facility]2017-09-18 19:37:00 Test Item Value Reference Range Interpretation Comments Chloride Lvl (test code = Chloride Lvl) 106 95-109 [facility]2017-09-18 19:37:00 Test Item Value Reference Range Interpretation Comments Creatinine Lvl (test code = Creatinine 0.80 0.50-1.40 Lvl) [facility]2017-09-18 19:37:00 Test Item Value Reference Range Interpretation Comments BUN (test code = BUN) 17 7-22 [facility]2017-09-18 19:37:00 Test Item Value Reference Range Interpretation Comments Glucose Lvl (test code = Glucose Lvl) 109 70-99 [facility] HoustonBaitfepEKPNUOXUWS1446-74-52 19:37:00 Test Item Value Reference Range Interpretation Comments Segs-Bands # (test code = Segs-Bands #) 6.5 1.5-8.1 [facility] HoustonVhoeaknWFAUVUYSOA5549-87-24 19:37:00 Test Item Value Reference Range Interpretation Comments Monocytes # (test code 0.6 See_Comment [Aut omated message] The = Monocytes #) system which generated this result tra nsmitted reference range : <=0.8. The reference r kevin was not used to int erpret this result as normal/abnormal . [facility] HoustonVacrvduYEMNPYFHUM4595-08-99 19:37:00 Test Item Value Reference Range Interpretation Comments Lymphocytes # (test code = Lymphocytes 1.6 1.0-5.5 #) [facility] HoustonCykqornCPOLUIURMQ3572-60-50 19:37:00 Test Item Value Reference Range Interpretation Comments Eosinophils # (test code 0.3 See_Comment [A utomated message] The = Eosinophils #) system whic h generated this result tra nsmitted reference range : <=0.5. The reference r kevin was not used to int erpret this result as normal/abnormal . [facility] HoustonJstubzuLQASDVFPUP6510-65-65 19:37:00 Test Item Value Reference Range Interpretation Comments Basophils (test code = 0.6 See_Comment [Aut omated message] The Basophils) system which ge nerated this result tra nsmitted reference range : <=1.0. The reference r kevin was not used to int erpret this result as normal/abnormal . [facility] HoustonEplwnluGYVOOERYSW2554-88-63 19:37:00 Test Item Value Reference Range Interpretation Comments Monocytes (test code = Monocytes) 6.1 2.0-12.0 [facility] HoustonBjhepjlRIEBOOSYZA0019-65-40 19:37:00 Test Item Value Reference Range Interpretation Comments Eosinophils (test code = 3.0 See_Comment [A utomated message] The Eosinophils) system which ge nerated this result tra nsmitted reference range : <=4.0. The reference r kevin was not used to int erpret this result as normal/abnormal . [facility] HoustonTtilggvXWMHATCEVU3147-28-73 19:37:00 Test Item Value Reference Range Interpretation Comments Basophils # (test code 0.1 See_Comment [Aut omated message] The = Basophils #) system which generated this result tra nsmitted reference range : <=0.2. The reference r kevin was not used to int erpret this result as normal/abnormal . [facility] HoustonFleouogLXXADAOQSC7614-24-54 19:37:00 Test Item Value Reference Range Interpretation Comments Lymphocytes (test code = Lymphocytes) 18.2 20.0-40.0 [facility] HoustonAamfaqsQZHHSNVWDE1995-67-50 19:37:00 Test Item Value Reference Range Interpretation Comments Segs (test code = Segs) 72.1 45.0-75.0 [facility] HoustonHztdlxoBKMEZKNAYP4061-56-13 19:37:00 Test Item Value Reference Range Interpretation Comments aPTT (test code = aPTT) 31.4 s 22.9-35.8 [facility] HoustonHoowghqHIEOUOUHZM4703-41-16 19:37:00 Test Item Value Reference Range Interpretation Comments PROTIME (test code = PROTIME) 12.6 s 12.0-14.7 [facility] HoustonNvizdrtBHOGFCKIFD0319-01-42 19:37:00 Test Item Value Reference Range Interpretation Comments INR (test code = INR) 0.92 0.85-1.17 [facility] HoustonYwcxuqzBDZDWVBOAE4463-63-23 19:37:00 Test Item Value Reference Range Interpretation Comments MCHC (test code = MCHC) 34.4 32.0-36.0 [facility] HoustonIgreiqfPMDLCSQUIQ7906-17-98 19:37:00 Test Item Value Reference Range Interpretation Comments MCH (test code = MCH) 31.1 pg 27.0-31.0 [facility] HoustonLjnnxcbXAXEEXCUGS6324-41-88 19:37:00 Test Item Value Reference Range Interpretation Comments WBC X 10x3 (test code = WBC X 10x3) 9.0 3.7-10.4 [facility]gtzwkrJODDYWTLTX8346-59-31 19:37:00 Test Item Value Reference Range Interpretation Comments RBC X 10x6 (test code = RBC X 10x6) 5.24 4.70-6.10 [facility] SystemVxvwygiIHUSYENONT2969-56-82 19:37:00 Test Item Value Reference Range Interpretation Comments Platelet (test code = Platelet) 334 133-450 [facility] SystemTybulhoHZAGNHSNBH4698-04-66 19:37:00 Test Item Value Reference Range Interpretation Comments RDW (test code = RDW) 14.3 11.5-14.5 [facility] SystemDtbkumgBMFTCXPXOO7116-26-86 19:37:00 Test Item Value Reference Range Interpretation Comments MPV (test code = MPV) 7.3 7.4-10.4 [facility] HoustonXlhtpukKUAOJAZBOW8230-99-86 19:37:00 Test Item Value Reference Range Interpretation Comments MCV (test code = MCV) 90.4 80.0-94.0 [facility] SystemHfqsfndGKYZRNLAKR9089-95-27 19:37:00 Test Item Value Reference Range Interpretation Comments Hct (test code = Hct) 47.4 42.0-54.0 [facility] SystemGiihuncUKZWABCDIW2613-68-71 19:37:00 Test Item Value Reference Range Interpretation Comments Hgb (test code = Hgb) 16.3 14.0-18.0 [facility]Red [facility]alL[facility] UYIRPBE0002-91-26 19:37:00 Test Item Value Reference Range Interpretation Comments Troponin-I (test code no gt See_Comment [Auto mated message] The = Troponin-I) system which g enerated this result transmit caio reference range : <=0.40. The reference r kevin was not used to interpr et this result as aileen l/abnormal. [facility] HospitalCambridge Temperature ConceptsCARDIAC ZAHMUYC5946-50-34 19:37:00 Test Item Value Reference Range Interpretation Comments CK MB (test code = CK MB) 7.4 0.5-3.6 [facility] DJRFIUK9934-96-72 19:37:00 Test Item Value Reference Range Interpretation Comments Total CK (test code = Total CK) 215 12-191 [facility] VQWJBZJ0617-77-81 19:37:00 Test Item Value Reference Range Interpretation Comments CK-MB INDEX (test 3.4 See_Comment [Automate d message] The code = CK-MB INDEX) system w [facility] generated this result transmit acio reference range : <=2.5. The reference range was not used to interpr et this result as aileen l/abnormal. [facility]2017-09-18 19:37:00 Test Item Value Reference Range Interpretation Comments A/G Ratio (test code = A/G Ratio) 1.1 0.7-1.6 [facility]2017-09-18 19:37:00 Test Item Value Reference Range Interpretation Comments AGAP (test code = AGAP) 8.3 10.0-20.0 [facility]2017-09-18 19:37:00 Test Item Value Reference Range Interpretation Comments Globulin (test code = Globulin) 3.6 2.7-4.2 [facility]2017-09-18 19:37:00 Test Item Value Reference Range Interpretation Comments B/C Ratio (test code = B/C Ratio) 21 6-25 [facility]2017-09-18 19:37:00 Test Item Value Reference Range Interpretation Comments eGFR (test code = eGFR) 93 [facility]2017-09-18 19:37:00 Test Item Value Reference Range Interpretation Comments Bili Total (test code = Bili Total) 0.4 0.2-1.3 [facility]2017-09-18 19:37:00 Test Item Value Reference Range Interpretation Comments Alk Phos (test code = Alk Phos) 109 39-136 [facility]2017-09-18 19:37:00 Test Item Value Reference Range Interpretation Comments ASPARTATE TRANSAMINASE 31 See_Comment [Aut omated message] (test code = ASPARTATE The s ystem which TRANSAMINASE) generated this result transmitted ref erence range: <=37. Th e reference range was not used to interpr et this result as normal/abnormal . [facility]2017-09-18 19:37:00 Test Item Value Reference Range Interpretation Comments ALANINE AMINOTRANSFERASE 40 See_Comment [A utomated message] (test code = ALANINE The sys tem which AMINOTRANSFERASE) generated this result transmitted ref erence range: <=65. Th e reference range was not used to int erpret this result as normal/abnormal . [facility]2017-09-18 19:37:00 Test Item Value Reference Range Interpretation Comments Total Protein (test code = Total 7.4 6.4-8.4 Protein) [facility]2017-09-18 19:37:00 Test Item Value Reference Range Interpretation Comments Albumin Lvl (test code = Albumin Lvl) 3.8 3.5-5.0 [facility]2017-09-18 19:37:00 Test Item Value Reference Range Interpretation Comments Calcium Lvl (test code = Calcium Lvl) 8.9 8.5-10.5 [facility]2017-09-18 19:37:00 Test Item Value Reference Range Interpretation Comments CO2 (test code = CO2) 28 24-32 [facility]2017-09-18 19:37:00 Test Item Value Reference Range Interpretation Comments Sodium Lvl (test code = Sodium Lvl) 138 135-145 [facility]2017-09-18 19:37:00 Test Item Value Reference Range Interpretation Comments Potassium Lvl (test code = Potassium 4.3 3.5-5.1 Lvl) [facility]2017-09-18 19:37:00 Test Item Value Reference Range Interpretation Comments Chloride Lvl (test code = Chloride Lvl) 106 95-109 [facility]2017-09-18 19:37:00 Test Item Value Reference Range Interpretation Comments Creatinine Lvl (test code = Creatinine 0.80 0.50-1.40 Lvl) [facility]2017-09-18 19:37:00 Test Item Value Reference Range Interpretation Comments BUN (test code = BUN) 17 7-22 [facility]2017-09-18 19:37:00 Test Item Value Reference Range Interpretation Comments Glucose Lvl (test code = Glucose Lvl) 109 70-99 [facility]zq[facility]ct[facility]ANIZ[facility]GXOZ3822-53-70 19:37:00 Test Item Value Reference Range Interpretation Comments Segs-Bands # (test code = Segs-Bands #) 6.5 1.5-8.1 [facility] HoustonSwqqaaqZUTMMBZPLU4359-49-87 19:37:00 Test Item Value Reference Range Interpretation Comments Monocytes # (test code 0.6 See_Comment [Aut omated message] The = Monocytes #) system which generated this result tra nsmitted reference range : <=0.8. The reference r kevin was not used to int erpret this result as normal/abnormal . [facility] HoustonGqvvxiiLZWJSKJSZC1017-73-98 19:37:00 Test Item Value Reference Range Interpretation Comments Lymphocytes # (test code = Lymphocytes 1.6 1.0-5.5 #) [facility] HoustonOosszcvODHUBOICTG2246-07-34 19:37:00 Test Item Value Reference Range Interpretation Comments Eosinophils # (test code 0.3 See_Comment [A utomated message] The = Eosinophils #) system whic h generated this result tra nsmitted reference range : <=0.5. The reference r kevin was not used to int erpret this result as normal/abnormal . [facility] HoustonSpgyholFUHZPTCTLY9545-93-34 19:37:00 Test Item Value Reference Range Interpretation Comments Basophils (test code = 0.6 See_Comment [Aut omated message] The Basophils) system which ge nerated this result tra nsmitted reference range : <=1.0. The reference r kevin was not used to int erpret this result as normal/abnormal . [facility] HoustonKtnfefiIFBWWKHIRJ7972-72-36 19:37:00 Test Item Value Reference Range Interpretation Comments Monocytes (test code = Monocytes) 6.1 2.0-12.0 [facility] HoustonNbhaeydRVCLDIFUGX0412-93-76 19:37:00 Test Item Value Reference Range Interpretation Comments Eosinophils (test code = 3.0 See_Comment [A utomated message] The Eosinophils) system which ge nerated this result tra nsmitted reference range : <=4.0. The reference r kevin was not used to int erpret this result as normal/abnormal . [facility] HoustonSqivvyhXZHOMUIKHJ5261-52-16 19:37:00 Test Item Value Reference Range Interpretation Comments Basophils # (test code 0.1 See_Comment [Aut omated message] The = Basophils #) system which generated this result tra nsmitted reference range : <=0.2. The reference r kevin was not used to int erpret this result as normal/abnormal . [facility] HoustonHasgeiwJOHTYYWISB0736-29-13 19:37:00 Test Item Value Reference Range Interpretation Comments Lymphocytes (test code = Lymphocytes) 18.2 20.0-40.0 [facility] HoustonHmifeahWNIUCXJISB8922-59-68 19:37:00 Test Item Value Reference Range Interpretation Comments Segs (test code = Segs) 72.1 45.0-75.0 [facility] HoustonFplvuhqNDSELBIAZR2805-77-04 19:37:00 Test Item Value Reference Range Interpretation Comments aPTT (test code = aPTT) 31.4 s 22.9-35.8 [facility] HoustonMpatczqVJQEDFWEDU1997-54-77 19:37:00 Test Item Value Reference Range Interpretation Comments PROTIME (test code = PROTIME) 12.6 s 12.0-14.7 [facility] HoustonVlvldnyMGTPCKXIJS7164-27-25 19:37:00 Test Item Value Reference Range Interpretation Comments INR (test code = INR) 0.92 0.85-1.17 [facility] HoustonPmkahrgBIDXWBPVGG3290-23-00 19:37:00 Test Item Value Reference Range Interpretation Comments MCHC (test code = MCHC) 34.4 32.0-36.0 [facility] HoustonUxielkgWFHOJMATRR3319-46-93 19:37:00 Test Item Value Reference Range Interpretation Comments MCH (test code = MCH) 31.1 pg 27.0-31.0 [facility] HoustonLsugjbsRDOASHUPYP8233-88-11 19:37:00 Test Item Value Reference Range Interpretation Comments WBC X 10x3 (test code = WBC X 10x3) 9.0 3.7-10.4 [facility] HoustonCsmeuxbCGPEQTFRSV9482-32-80 19:37:00 Test Item Value Reference Range Interpretation Comments RBC X 10x6 (test code = RBC X 10x6) 5.24 4.70-6.10 [facility] HoustonXsnjogpLWNHCEIMNC3078-90-02 19:37:00 Test Item Value Reference Range Interpretation Comments Platelet (test code = Platelet) 334 133-450 [facility] HoustonBoazkxaSULBNTPWSA9035-39-11 19:37:00 Test Item Value Reference Range Interpretation Comments RDW (test code = RDW) 14.3 11.5-14.5 [facility] HoustonVyvdgdrKEOIWWOVCX4774-23-65 19:37:00 Test Item Value Reference Range Interpretation Comments MPV (test code = MPV) 7.3 7.4-10.4 [facility] HoustonDxqmnaxCNSDMJYVIA2668-55-50 19:37:00 Test Item Value Reference Range Interpretation Comments MCV (test code = MCV) 90.4 80.0-94.0 [facility] HoustonKrwehriKLUODUDEDA8785-75-81 19:37:00 Test Item Value Reference Range Interpretation Comments Hct (test code = Hct) 47.4 42.0-54.0 [facility] RiubbzrBUAPLTVIQN0605-06-30 19:37:00 Test Item Value Reference Range Interpretation Comments Hgb (test code = Hgb) 16.3 14.0-18.0 [facility] [employer] [id number] 19:37:00 Test Item Value Reference Range Interpretation Comments Troponin-I (test code no gt See_Comment [Auto mated message] The = Troponin-I) system which g enerated this result transmit caio reference range : <=0.40. The reference r kevin was not used to interpr et this result as aileen l/abnormal. [facility] [employer] [id number] 19:37:00 Test Item Value Reference Range Interpretation Comments CK MB (test code = CK MB) 7.4 0.5-3.6 [facility] [employer] [id number] 19:37:00 Test Item Value Reference Range Interpretation Comments Total CK (test code = Total CK) 215 12-191 [facility] [id number] 19:37:00 Test Item Value Reference Range Interpretation Comments CK-MB INDEX (test 3.4 See_Comment [Automate d message] The code = CK-MB INDEX) system [facility] generated this result transmit caio reference range : <=2.5. The reference range was not used to interpr et this result as aileen l/abnormal. [facility] [place] [id number] 19:37:00 Test Item Value Reference Range Interpretation Comments A/G Ratio (test code = A/G Ratio) 1.1 0.7-1.6 [facility] [place] [id number] 19:37:00 Test Item Value Reference Range Interpretation Comments AGAP (test code = AGAP) 8.3 10.0-20.0 [facility] [place] [id number] 19:37:00 Test Item Value Reference Range Interpretation Comments Globulin (test code = Globulin) 3.6 2.7-4.2 [facility] [place] [id number] 19:37:00 Test Item Value Reference Range Interpretation Comments B/C Ratio (test code = B/C Ratio) 21 6-25 [facility]2017-09-18 19:37:00 Test Item Value Reference Range Interpretation Comments eGFR (test code = eGFR) 93 [facility]2017-09-18 19:37:00 Test Item Value Reference Range Interpretation Comments Bili Total (test code = Bili Total) 0.4 0.2-1.3 [facility]"
--- NOTE | 2022-08-14 15:47 | P.HP ---
Certification for Inpatient Patient admitted to: Inpatient With expected LOS: >2 Midnights Patient will require the following post-hospital care: Home Health Services Practitioner: I am a practitioner with admitting privileges, knowledge of patient current condition, hospital course, and medical plan of care. Services: Services provided to patient in accordance with Admission requirements found in Title 42 Section 412.3 of the Code of Federal Regulations Patient History Date of Service: 08/14/22 Primary Care Provider: Bernadine Reason for admission: Chf exacerbation History of Present Illness: Patient came to the office today to establish care. he has a past history of afib, pvd and was recently admitted for urosepsis. He was tachycardic in the office at 114 at rest. Was complaining of lower energy, early satiety and lower extremity swelling. His right leg is more swollen than the left. He had a dvt work up 5 days ago and is on rivabaron. The patient became agitated during the discussion of his care. I was discussing the possibility of heart failure. He started getting diaphoretic and coughing up clear sputum. The entire family and the patient felt worried about going home. I agreed and sent him to the hospital for admission. Allergies No Known Allergies Allergy (Unverified 08/09/22 18:07) Home Medications: Rivaroxaban [Xarelto] 1 tab PO DAILY 08/10/22 Amiodarone HCl [Cordarone*] 200 mg PO BID #60 tab 08/12/22 Cefdinir [Cefdinir*] 300 mg PO BID #20 cap 08/12/22 Clopidogrel Bisulfate [Plavix*] 75 mg PO BEDTIME #30 08/12/22 traMADol HCL [Ultram*] 50 mg PO Q6H PRN #30 tab 08/12/22 - Past Medical/Surgical History -: Atrial fib -: Asthma -: BLE stent - Social History Alcohol use: No CD- Drugs: No Caffeine use: No Review of Systems 10-point ROS is otherwise unremarkable General: Malaise Respiratory: Cough, Shortness of Breath, Sputum (clear) Cardiovascular: Edema (2+) Gastrointestinal: Other (early satiety ) Physical Examination - Physical Exam General: Alert, Moderate distress HEENT: Atraumatic, PERRLA, Mucous membr. moist/pink, EOMI, Sclerae nonicteric Neck: Supple, 2+ carotid pulse no bruit, No LAD, Without JVD or thyroid abnormality Respiratory: Normal air movement, Crackles/rales (at the bases of the lung) Cardiovascular: Regular rate/rhythm, Normal S1 S2, Edema (2+) Gastrointestinal: Normal bowel sounds, No tenderness Musculoskeletal: No tenderness Integumentary: No rashes Neurological: Normal gait, Normal speech, Normal strength at 5/5 x4 extr, Normal tone, Normal affect Lymphatics: No axilla or inguinal lymphadenopathy Assessment and Plan - Problems (Diagnosis) (1) CHF exacerbation Current Visit: Yes Status: Acute Plan: will admit to the hospital. Start lasix and metoprolol. Will consult Dr. Choudhury. Check i's and O's Qualifiers: Heart failure type: unspecified Qualified Code(s): I50.9 - Heart failure, unspecified (2) Afib Current Visit: Yes Status: Chronic Plan: continue amiodarone. Will add a beta laine. He is on anticoagulation Qualifiers: Atrial fibrillation type: paroxysmal Qualified Code(s): I48.0 - Paroxysmal atrial fibrillation (3) PVD (peripheral vascular disease) Current Visit: Yes Status: Chronic Plan: He has a history of stents and blood clots in his legs. this is another risk factor for heart disease. continue the rivabarin. Will need to check his cholesterol and consider asa and statin therapy (4) Wheelchair dependent Current Visit: Yes Status: Acute Plan: Mostly from back pain. will need usp PT and possible outpatient work up with Dr. John Latif (5) Incontinence Current Visit: Yes Status: Acute Plan: will place a clark. This may be due to bph. Will consider sending to urology as an outpatient Qualifiers: Incontinence type: urinary Urinary Incontinence type: stress incontinence Qualified Code(s): N39.3 - Stress incontinence (female) (male) Discharge Plan: Home Plan to discharge in: Greater than 2 days - Advance Directives Does patient have a Living Will: No Does patient have a Durable POA for Healthcare: No - Code Status/Comfort Care Code Status Assessed: Yes Code Status: Full Code Physician Review: Patient Assessed, Agree with Above Assessment and Plan Critical Care: No Time Spent Managing Pts Care (In Minutes): 70
--- NOTE | 2022-08-14 17:00 | RAD REPORT ---
EXAM DESCRIPTION: Deborah Single View08/14/2022 4:25 pm CLINICAL HISTORY: Chest pain COMPARISON: August 09, 2022 FINDINGS: The lungs appear clear of acute infiltrate. The heart is normal size IMPRESSION: No acute abnormalities displayed
[2022-08-14] MEDS ORDERED: ACETAMINOPHEN 500 MG TAB ONE (17:19)
[2022-08-14 17:21] LABS: SARS-CoV-2 Antigen Rapid Res Negative (Negative)
--- NOTE | 2022-08-14 17:45 | ER ---
Nurse's Notes [facility] Name: Oswaldo Chou Age: 71 yrs Sex: Male : 1950 Arrival Date: 08/14/2022 Time: 15:06 Bed Direct Admit Private MD: Amrik Colindres Diagnosis: Heart failure, unspecified Presentation: 08/14 15:12 Chief complaint: Patient states: Direct admit from Dr. Colindres, pt reports he was just aa5 admitted a few days ago, states "I am not getting any better". Ebola Screen: Patient denies travel to an Ebola-affected area in the 21 days before illness onset. Initial Sepsis Screen: Does the patient meet any 2 criteria? No. Patient's initial sepsis screen is negative. Does the patient have a suspected source of infection? No. Patient's initial sepsis screen is negative. Risk Assessment: Do you want to hurt yourself or someone else? Patient reports no desire to harm self or others. Onset of symptoms was July 2022. 15:12 Acuity: REINA 3 aa5 15:12 Method Of Arrival: Wheelchair aa5 15:27 Coronavirus screen: Vaccine status: Patient reports receiving the 2nd dose of the covid eh3 vaccine. Triage Assessment: 15:27 General: Appears in no apparent distress. uncomfortable, Behavior is calm, cooperative, eh3 appropriate for age. Historical: - Allergies: 15:15 No Known Allergies; aa5 - Home Meds: 15:27 Plavix 75 mg Oral tab [Active]; Xarelto Oral [Active]; eh3 - PMHx: 15:11 Atrial fibrillation; aa5 - PSHx: 15:11 back surgery; stents to the DONN lower legs; aa5 - Immunization history:: Adult Immunizations up to date. - Social history:: Smoking status: unknown. Screenin:23 [facility] ED Fall Risk Assessment (Adult) History of falling in the last 3 months, eh3 including since admission No falls in past 3 months (0 pts) Confusion or Disorientation No (0 pts) Intoxicated or Sedated No (0 pts) Impaired Gait Yes (1 pt) Mobility Assist Device Used Yes (1 pt) Altered Elimination No (0 pt) Score/Fall Risk Level 0 - 2 = Low Risk. Abuse screen: Denies threats or abuse. Denies injuries from another. Nutritional screening: No deficits noted. Tuberculosis screening: No symptoms or risk factors identified. Assessment: 15:23 Pain: Denies pain. eh3 17:45 Reassessment: Attempted to call report to 4th floor, phone not answered. eh3 17:50 Reassessment: Attempted to call report to 4th floor, phone not answered. eh3 17:55 Reassessment: Attempted to call report to 4th floor, phone not answered. eh3 Vital Signs: 15:12 BP 113 / 73; Pulse 83; Resp 24 S; Temp 98.4(TE); Pulse Ox 94% on 2 lpm NC; aa5 ED Course: 15:06 Patient arrived in ED. as 15:07 Ed Ag PA is PHCP. cp 15:07 Huey Sparks MD is Attending Physician. cp 15:07 Amrik Colindres MD is Private Physician. as 15:10 Arm band placed on. aa5 15:17 Triage completed. aa5 15:23 May Chaudhari, INGA is Primary Nurse. eh3 15:23 Patient has correct armband on for positive identification. Placed in gown. Bed in low eh3 position. Call light in reach. Side rails up X2. Adult w/ patient. Client placed on continuous cardiac and pulse oximetry monitoring. NIBP monitoring applied. Cleaned of incontinence. 15:27 No provider procedures requiring assistance completed. eh3 16:43 SARS RAPID Sent. eh3 17:44 Amrik Colindres MD is Hospitalizing Provider. kj1 18:24 Patient did not have IV access during this emergency room visit. eh3 Administered Medications: No medications were administered Medication: 15:23 VIS not applicable for this client. eh3 Outcome: 15:23 Admitted to ER Hold. Please see [facility] for further documentation. eh3 15:23 Condition: stable 15:23 Instructed on the need for admit. 17:44 Decision to Hospitalize by Provider. kj1 18:24 Patient left the ED. eh3 Signatures: Lucy Campbell Audri, RN RN aa5 Ed Ag PA PA cp Jackson, Kandis kj1 May Chaudhari RN RN eh3
[2022-08-14 18:49] LABS: Hematocrit 44.2 % (39.6-49.0); MCV 95.6 fL (80-100); MPV 7.3 fL (7.6-11.3); RBC Red Blood Cell Count 4.62 M/uL (4.33-5.43)
--- NOTE | 2022-08-14 18:55 | CON ---
Date of Consultation: 08/14/2022 Reason For Consultation: Congestive heart failure. History Of Present Illness: This is an elderly male, history of atrial fibrillation and asthma, pres ented with shortness of breath, orthopnea, lower extremity edema, worsening. He was unable to sleep at night due to the shortness of breath. Denies having any chest pain. He is coughing with clear sp utum. No diaphoresis, nausea, vomiting, or diarrhea. Past Medical History: Atrial fibrillation, asthma. Medications: Refer to reconciliation sheet for detailed list. Allergies: NO KNOWN DRUG ALLERGIES. Family History: No premature coronary artery disease or cancer. Social History: He does not smoke or drink. Does not use any drugs. Review of Systems: All systems reviewed and they were negative except what mentioned in HPI. Physical Examination: Vital Signs: Reviewed. Head and Neck: Pupils are equal, reactive to light. Intact eye movements. Positive JVD. No cervic al lymphadenopathy. Neck is supple. Thyroid is not enlarged. Lungs: Clear to auscultation bilaterally. No rhonchi, wheezing, or crackles. No accessory muscle u se. Heart: Irregularly irregular. No extra sounds. Abdomen: Soft, nontender. Bowel sounds positive. No organomegaly. No masses or hernia. No rigidi ty or rebound. Extremities: No clubbing or cyanosis. Intact pulses. 3+ pedal edema. Neurologic: Alert, awake, oriented x3. No acute focal deficits appreciated. Investigations: All labs are pending. Assessment And Recommendations: 1.Acute congestive heart failure exacerbation, unknown ejection fraction. Obtain echo tomorrow morn ing. Start him on Lasix 40 mg IV q.12 hours, first dose now and monitor BUN, creatinine, electrolyte s. 2.Atrial fibrillation. Use amiodarone and Xarelto. Continue current management and he might benefi t from restoring sinus rhythm. We will admit him on telemetry and make a decision on that within the next 24 hours. 3.Hypertension. Continue home medications. SR/MODL Voice ID: [id number] Report ID: [id number]
[2022-08-14 19:15] LABS: Thyroid Stimulating Hormone 7.85 uIU/mL (0.358-3.740)
[2022-08-14] MEDS: FUROSEMIDE 40 MG/4 ML VIAL IV SCH (19:35)
[2022-08-14] MEDS: RIVAROXABAN 20 MG TABLET PO SCH (19:35)
[2022-08-14] MEDS: AMIODARONE HCL 200 MG TAB PO SCH (20:43)
[2022-08-14] MEDS: CEFDINIR 300 MG CAP PO SCH (20:57)
[2022-08-14] MEDS: TRAMADOL HCL 50 MG TAB PO PRN (20:57)
[2022-08-14] MEDS ORDERED: GUAIFENESIN/CODEINE 5ML UCUP PO ONE (21:00)
[2022-08-14 21:18] VITALS: BMI 25.8
[2022-08-14] MEDS ORDERED: guaiFENesin 100 MG/5 ML UCUP PO PRN (21:19)
[2022-08-15] MEDS: METOPROLOL TAR 25 MG TAB PO SCH (05:39)
[2022-08-15 06:39] LABS: Absolute Lymphocytes (CBC) 0.8 K/uL (0.7-4.9); MCV 96.8 fL (80-100); RBC Red Blood Cell Count 4.44 M/uL (4.33-5.43)
[2022-08-15 06:47] LABS: Albumin 2.6 g/dL (3.4-5.0); Bilirubin Total 0.5 mg/dL (0.2-1.0); Potassium 3.3 mmol/L (3.5-5.1)
--- NOTE | 2022-08-15 08:09 | P.PN ---
Subjective Date of Service: 08/15/22 Primary Care Provider: Bernadine Chief Complaint: Chf exacerbation Subjective: Improving Review of Systems 10-point ROS is otherwise unremarkable Physical Examination - Vital Signs Temperature: 96.9 F Blood Pressure: 109/54 Pulse: 69 Respirations: 18 Pulse Ox (%): 92 - Physical Exam General: Alert, In no apparent distress HEENT: Atraumatic, PERRLA, EOMI Neck: Supple, JVD not distended Respiratory: Clear to auscultation bilaterally (crepitations from yesterday have resolved. ), Normal air movement Cardiovascular: Regular rate/rhythm, Normal S1 S2 Gastrointestinal: Normal bowel sounds, No tenderness Musculoskeletal: No tenderness Integumentary: No rashes Neurological: Normal speech, Normal tone, Normal affect Lymphatics: No axilla or inguinal lymphadenopathy Assessment And Plan - Current Problems (Diagnosis) (1) CHF exacerbation Current Visit: Yes Status: Acute Plan: will admit to the hospital. Start lasix and metoprolol. Will consult Dr. Choudhury. Check i's and O's 08/15 -760 fluid balance. The patient seem more stable. Will discuss with Dr. Choudhury Qualifiers: Heart failure type: unspecified Qualified Code(s): I50.9 - Heart failure, unspecified (2) Afib Current Visit: Yes Status: Chronic Plan: continue amiodarone. Will add a beta laine. He is on anticoagulation Qualifiers: Atrial fibrillation type: paroxysmal Qualified Code(s): I48.0 - Paroxysmal atrial fibrillation (3) PVD (peripheral vascular disease) Current Visit: Yes Status: Chronic Plan: He has a history of stents and blood clots in his legs. this is another risk factor for heart disease. continue the rivabarin. Will need to check his cholesterol and consider asa and statin therapy (4) Wheelchair dependent Current Visit: Yes Status: Acute Plan: Mostly from back pain. will need long-term PT and possible outpatient work up with Dr. John Latif 08/14 He transfered yesterday. However states he couldn't later on. Will consult PT. (5) Incontinence Current Visit: Yes Status: Acute Plan: will place a clark. This may be due to bph. Will consider sending to urology as an outpatient Qualifiers: Incontinence type: urinary Urinary Incontinence type: stress incontinence Qualified Code(s): N39.3 - Stress incontinence (female) (male) (6) Sleep apnea Current Visit: Yes Status: Chronic Plan: Was told he has sleep apnea in '18. Has not had an outpatient work up. Consi dering his volume status and afib. It would make sense to test him Qualifiers: Primary sleep apnea of type: obstructive Discharge Plan: Home Plan to discharge in: 48 Hours - Code Status/Comfort Care Code Status Assessed: No Physician Review: Patient Assessed, Agree with Above Assessment and Plan Critical Care: No Time Spent Managing PTS Care (In Minutes): 20
[2022-08-15] MEDS ORDERED: FUROSEMIDE 40 MG/4 ML VIAL IV SCH (09:00)
[2022-08-15] MEDS ORDERED: AMIODARONE HCL 200 MG TAB PO SCH (09:00)
[2022-08-15] MEDS: AMIODARONE HCL 200 MG TAB PO SCH ×2 (10:17→20:14)
[2022-08-15] MEDS: CLOPIDOGREL 75 MG TABLET PO SCH (10:17)
[2022-08-15] MEDS: CEFDINIR 300 MG CAP PO SCH ×2 (10:17→20:13)
[2022-08-15] MEDS: FUROSEMIDE 40 MG/4 ML VIAL IV SCH ×2 (10:18→17:02)
[2022-08-15] MEDS ORDERED: LEVALBUTEROL 0.63 MG/3 ML NEB NEB ONE (13:00)
[2022-08-15] MEDS ORDERED: NA CHLORIDE 0.9% 250 ML IV ONE (13:10)
[2022-08-15] MEDS: MAGNESIUM HYDROXIDE 8% 30 ML PO SCH ×2 (13:49→20:15)
[2022-08-15] MEDS: BISACODYL E.C. 5 MG TAB PO SCH ×2 (13:49→20:15)
[2022-08-15] MEDS ORDERED: BISACODYL E.C. 5 MG TAB PO SCH (14:00)
[2022-08-15] MEDS: RIVAROXABAN 20 MG TABLET PO SCH (17:02)
--- NOTE | 2022-08-15 18:10 | PN ---
Date of Progress Note: 08/15/2022 Subjective: Seen by bedside. He is doing much better after diuresis. Review of Systems: No chest pain. Has shortness of breath and orthopnea and lower extremity edema that improved. No na usea, vomiting, diarrhea. No dysuria, polyuria, or urinary urgency. All other systems reviewed and they were negative. Physical Examination: Vital Signs: Reviewed. Head and Neck: Pupils are equal, reactive to light. Intact eye movements. No JVD. No cervical lym phadenopathy. Neck is supple. Thyroid is not enlarged. Lungs: Clear to auscultation bilaterally. No rhonchi, wheezing, or crackles. No accessory muscle u se. Heart: Regular rate and rhythm. No extra sounds. Abdomen: Soft, nontender. Bowel sounds positive. No organomegaly. No masses or hernia. No rigidi ty or rebound. Extremities: Trace edema bilaterally. No clubbing or cyanosis. Intact pulses. Skin: No rash. Neurologic: Alert, awake, oriented x3. No acute focal deficits appreciated. Investigations: Labs were reviewed. His BUN and creatinine are normal. Assessment And Recommendations: 1.Acute on chronic diastolic heart failure exacerbation. On echo, his ejection fraction is normal. Diuresing well. Starting this evening, switch him to oral Lasix 40 mg by mouth twice a day in prepa ration for possible discharge tomorrow. 2.Atrial fibrillation. Continue amiodarone and Xarelto. 3.Hypertension. Blood pressure is controlled. SR/MODL Voice ID: [id number] Report ID: [id number]
[2022-08-15] MEDS ORDERED: ALPRAZOLAM 1 MG TABLET PO ONE (20:21)
[2022-08-15] MEDS: TRAMADOL HCL 50 MG TAB PO PRN (21:59)
[2022-08-16] MEDS: METOPROLOL TAR 25 MG TAB PO SCH (05:41)
[2022-08-16 05:58] LABS: Absolute Lymphocytes (CBC) 0.9 K/uL (0.7-4.9); Hematocrit 45.1 % (39.6-49.0); Lymphocytes % 11.1 % (15.3-44.8); MCV 96.3 fL (80-100); MPV 6.8 fL (7.6-11.3); RBC Red Blood Cell Count 4.68 M/uL (4.33-5.43)
[2022-08-16 06:14] LABS: Albumin 2.8 g/dL (3.4-5.0); Bilirubin Total 0.6 mg/dL (0.2-1.0); Potassium 3.1 mmol/L (3.5-5.1); Protein, Total 6.3 g/dL (6.4-8.2)
[2022-08-16 08:10] VITALS: BP 111/72; TEMP 97.8
[2022-08-16] MEDS: CLOPIDOGREL 75 MG TABLET PO SCH (08:23)
[2022-08-16] MEDS: FUROSEMIDE 40 MG/4 ML VIAL IV SCH (08:24)
[2022-08-16] MEDS: AMIODARONE HCL 200 MG TAB PO SCH (08:24)
[2022-08-16] MEDS: CEFDINIR 300 MG CAP PO SCH (08:24)
[2022-08-16] MEDS: MAGNESIUM HYDROXIDE 8% 30 ML PO SCH (08:24)
[2022-08-16] MEDS: BISACODYL E.C. 5 MG TAB PO SCH (08:24)
[2022-08-16] MEDS ORDERED: POTASSIUM CL SA 10 MEQ TAB PO ONE (09:00)
--- NOTE | 2022-08-16 10:20 | P.DS ---
Admission Date: 08/14/22 Discharge Date: 08/16/22 Primary Care Provider: Bernadine Disposition: ROUTINE DISCHARGE Discharge Condition: GOOD Reason for Admission: Chf exacerbation - Problems (1) CHF exacerbation Current Visit: Yes Status: Acute Qualifiers: Heart failure type: unspecified Qualified Code(s): I50.9 - Heart failure, unspecified (2) Afib Current Visit: Yes Status: Chronic Qualifiers: Atrial fibrillation type: paroxysmal Qualified Code(s): I48.0 - Paroxysmal atrial fibrillation (3) PVD (peripheral vascular disease) Current Visit: Yes Status: Chronic (4) Wheelchair dependent Current Visit: Yes Status: Acute (5) Incontinence Current Visit: Yes Status: Acute Qualifiers: Incontinence type: urinary Urinary Incontinence type: stress incontinence Qualified Code(s): N39.3 - Stress incontinence (female) (male) (6) Sleep apnea Current Visit: Yes Status: Chronic Qualifiers: Primary sleep apnea of type: obstructive Brief History of Present Illness: Patient came to the office today to establish care. he has a past history of afib, pvd and was recently admitted for urosepsis. He was tachycardic in the office at 114 at rest. Was complaining of lower energy, early satiety and lower extremity swelling. His right leg is more swollen than the left. He had a dvt work up 5 days ago and is on rivabaron. The patient became agitated during the discussion of his care. I was discussing the possibility of heart failure. He started getting diaphoretic and coughing up clear sputum. The entire family and the patient felt worried about going home. I agreed and sent him to the hospital for admission. Hospital Course: Patient was admitted for chf exacerbation and afib. He was seen by Dr. Choudhury. His echo report is not up. However Dr. Choudhury's note states diastolic dysfunction. The patient will be discharge home. Will need an out patient sleep study. Follow up in the office next week and we can order one. Vital Signs/Physical Exam: Temp Pulse Resp BP Pulse Ox 97.8 F 61 16 111/72 97 08/16/22 08:00 08/16/22 08:24 08/16/22 08:00 08/16/22 08:24 08/16/22 08:00 General: Alert, In no apparent distress HEENT: Atraumatic, PERRLA, EOMI Neck: Supple, JVD not distended Respiratory: Clear to auscultation bilaterally, Normal air movement Cardiovascular: Regular rate/rhythm, Normal S1 S2 Gastrointestinal: Normal bowel sounds, No tenderness Musculoskeletal: No tenderness Integumentary: No rashes Neurological: Normal speech, Normal tone, Normal affect Lymphatics: No axilla or inguinal lymphadenopathy Laboratory Data at Discharge: WBC 7.80 K/uL (4.3-10.9) 08/16/22 05:32 Hgb 14.8 g/dL (13.6-17.9) 08/16/22 05:32 Hct 45.1 % (39.6-49.0) 08/16/22 05:32 Plt Count 293 K/uL (152-406) 08/16/22 05:32 Sodium 140 mmol/L (136-145) 08/16/22 05:32 Potassium 3.1 mmol/L (3.5-5.1) L 08/16/22 05:32 BUN 12 mg/dL (7-18) 08/16/22 05:32 Creatinine 0.59 mg/dL (0.70-1.30) L 08/16/22 05:32 Glucose 87 mg/dL (74-106) 08/16/22 05:32 Total Bilirubin 0.6 mg/dL (0.2-1.0) 08/16/22 05:32 AST 26 U/L (15-37) 08/16/22 05:32 ALT 27 U/L (16-61) 08/16/22 05:32 Alkaline Phosphatase 70 U/L (45-117) 08/16/22 05:32 Home Medications: Amiodarone HCl [Cordarone*] 200 mg PO BID #60 tab 08/12/22 traMADol HCL [Ultram*] 50 mg PO Q6H PRN #30 tab 08/12/22 Amiodarone HCl [Cordarone*] 200 mg PO BID 90 Days #180 tab 08/16/22 Clopidogrel Bisulfate [Plavix*] 75 mg PO BEDTIME 90 Days #90 tab 08/16/22 Furosemide [Lasix] 40 mg PO DAILY 90 Days #90 tab 08/16/22 Metoprolol Tartrate [Lopressor*] 12.5 mg PO [id number] 90 Days #180 tab 08/16/22 Rivaroxaban [Xarelto] 1 tab PO DAILY 90 Days #90 tab 08/16/22 New Medications: Amiodarone HCl [Cordarone*] 200 mg PO BID 90 Days #180 tab Furosemide [Lasix] 40 mg PO DAILY 90 Days #90 tab Metoprolol Tartrate [Lopressor*] 12.5 mg PO [id number] 90 Days #180 tab Clopidogrel Bisulfate [Plavix*] 75 mg PO BEDTIME 90 Days #90 tab Rivaroxaban [Xarelto] 1 tab PO DAILY 90 Days #90 tab Diet: AHA Activity: Ad jo Followup: Amrik Colindres MD [Primary Care Provider] - 1 Week Yovani Choudhury MD [ACTIVE - CAN ADMIT] - 1-2 Weeks Time spent managing pt's care (in minutes): 30
[2022-08-16 10:25] VITALS: O2SAT 100
--- NOTE | 2022-08-18 06:47 | ECHO ---
HEIGHT: 5 ft 7 in WEIGHT: 165 lb 0 oz DATE OF STUDY: 08/15/[address]: Amrik Colindres MD 2-DIMENSIONAL: YES M.MODE: YES DOPPLER: YES COLOR FLOW: YES TDS: YES PORTABLE: DEFINITY: BUBBLE STUDY: DIAGNOSIS: ACUTE CONGESTIVE HEART FAILURE EXACERBATION CARDIAC HISTORY: CATHERIZATION: SURGERY: PROSTHETIC VALVE: PACEMAKER: MEASUREMENTS (cm) DIASTOLIC (NORMALS) SYSTOLIC (NORMALS) IVSd 1.0 (0.6-1.2) LA Diam (1.9-4.0) LVEF 65% LVIDd 4.3 (3.5-5.7) LVIDs 2.3 (2.0-3.5) %FS 46% LVPWd 1.1 (0.6-1.2) Ao Diam 3.3 (2.0-3.7) 2 DIMENSIONAL ASSESSMENT: RIGHT ATRIUM: NORMAL LEFT ATRIUM: NORMAL RIGHT VENTRICLE: NORMAL LEFT VENTRICLE: NORMAL TRICUSPID VALVE: NORMAL MITRAL VALVE: MILD MITRAL REGURGITATION PULMONIC VALVE: NORMAL AORTIC VALVE: NORMAL PERICARDIAL EFFUSION: NONE AORTIC ROOT: NORMAL LEFT VENTRICULAR WALL MOTION: NORMAL DOPPLER/COLOR FLOW: MILD MITRAL REGURGITATION COMMENTS: 1. NORMAL LEFT VENTRICULAR EJECTION FRACTION 60-65% 2. NORMAL WALL MOTION 3. MILD MITRAL REGURGITATION 4. DIASTOLIC DYSFUNCTION (GRADE I) TECHNOLOGIST: EH GAGNON
== END 2022-08-16 11:31 | disposition home health service (06) | DRG 291 ==
LOC: ER 15:01 → ERHOLD 15:31 → 4TH 18:56
PROVIDERS: ADMIT Internal Medicine; ATTEND Internal Medicine
DX: I11.0 Hypertensive heart disease with heart failure (principal); I50.31 Acute diastolic (congestive) heart failure; I48.0 Paroxysmal atrial fibrillation; I73.9 Peripheral vascular disease, unspecified; N39.3 Stress incontinence (female) (male); G47.33 Obstructive sleep apnea (adult) (pediatric); J45.909 Unspecified asthma, uncomplicated; I34.0 Nonrheumatic mitral (valve) insufficiency; R68.81 Early satiety; Z99.3 Dependence on wheelchair; Z95.828 Presence of other vascular implants and grafts; Z86.718 Personal history of other venous thrombosis and embolism; Z79.02 Long term (current) use of antithrombotics/antiplatelets; Z79.01 Long term (current) use of anticoagulants; Z20.822 Contact with and (suspected) exposure to COVID-19
CPT/HCPCS: 36415; 71045; 80053; 83036; 83880; 84439; 84443; 84484; 85025; 85027; 87811; 93306; 94640; 99281; J1940; J7030; J7614

== ENCOUNTER 2023-07-10 10:28 | Observation (INO) | payer OTHER ==
[2023-07-10 13:21] LABS: Hematocrit 44.4 % (39.6-49.0); Lymphocytes % 11.4 % (15.3-44.8); MCV 98.8 fL (80-100); MPV 7.9 fL (7.6-11.3); Platelets 234 thou/uL (152-406); RBC Red Blood Cell Count 4.49 M/uL (4.33-5.43)
[2023-07-10 13:43] LABS: Albumin 3.7 g/dL (3.4-5.0); Bilirubin Total 0.5 mg/dL (0.2-1.0); Protein, Total 7.7 g/dL (6.4-8.2)
--- NOTE | 2023-07-10 13:51 | RAD REPORT ---
EXAM DESCRIPTION: US - Extremity Venous Uni Ltd - 07/10/2023 1:25 pm CLINICAL HISTORY: Pain, swelling COMPARISON: None. TECHNIQUE: Real-time sonographic evaluation of the right lower extremity deep venous system was perf ormed. FINDINGS: Normal compressibility, flow augmentation, phasic flow and spontaneous flow is identified in the right lower extremity deep venous system. No intraluminal filling defects seen. Moderate edema along the lower leg. IMPRESSION: No evidence of DVT in the right lower extremity.
[2023-07-10 14:00] LABS: Protime INR 1.05
[2023-07-10] MEDS ORDERED: LORazepam 2 MG/ML VIAL ONE (14:18)
[2023-07-10] MEDS ORDERED: CEFTRIAXONE 1000 MG/VIAL ONE (15:06)
--- NOTE | 2023-07-10 15:50 | EDPHYS ---
Physician Documentation [facility] Name: Oswaldo Chou Age: 72 yrs Sex: Male : 1950 Arrival Date: 07/10/2023 Time: :28 Bed 19 Private MD: ED Physician Bogdan Bolton HPI: 07/10 21:00 This 72 yrs old Male presents to ER via Wheelchair with complaints of Leg Swelling, kdr Feet Swelling. 21:00 Patient was sent from Dr. Colindres's office earlier today. The patient presents with right kdr leg swelling and redness for 2 weeks. He also has a wound on the back of his calf that is draining for about 10 days. In general the patient has been more short of breath and weak recently. Patient had been taken off his Xarelto earlier in the year (several months ago). Patient had a history of A-fib but not atrial flutter. The most recent EKG prior to today showed a sinus rhythm. That was in July.. Onset: The symptoms/episode began/occurred acutely, gradually, 2 week(s) ago. Severity of symptoms: At their worst the symptoms were mild in the emergency department the symptoms are unchanged. The patient has not experienced similar symptoms in the past. The patient has been recently seen by a physician: the patient's primary care provider. Historical: - Allergies: 11:13 adhesive tape; hb - PMHx: 11:13 Atrial fibrillation; hb - PSHx: 11:13 back surgery; stents to the DONN lower legs; hb - Social history:: Smoking status: Patient/guardian denies using tobacco, but has a distant history of tobacco abuse. ROS: 21:00 Constitutional: Negative for fever, chills, and weight loss, Eyes: Negative for injury, kdr pain, redness, and discharge, Neck: Negative for injury, pain, and swelling, Cardiovascular: Negative for chest pain, palpitations, and edema, 21:00 Abdomen/GI: Negative for abdominal pain, nausea, vomiting, diarrhea, and constipation, Back: Negative for injury and pain, : Negative for injury, bleeding, discharge, and swelling, MS/Extremity: Negative for injury and deformity, Skin: Negative for injury, rash, and discoloration, Neuro: Negative for headache, weakness, numbness, tingling, and seizure activity. Psych: Negative for depression, anxiety, suicide ideation, homicidal ideation, and hallucinations, Allergy/Immunology: Negative for hives, rash, and allergies, Endocrine: Negative for neck swelling, polydipsia, polyuria, polyphagia, and marked weight changes, Hematologic/Lymphatic: Negative for swollen nodes, abnormal bleeding, and unusual bruising, 21:00 Respiratory: Positive for cough, shortness of breath, wheezing, Negative for hemoptysis, Exam: 21:00 Constitutional: This is a well developed, well nourished patient who is awake, alert, kdr and in no acute distress. Head/Face: Normocephalic, atraumatic. Eyes: Pupils equal round and reactive to light, extra-ocular motions intact. Lids and lashes normal. Conjunctiva and sclera are non-icteric and not injected. Cornea within normal limits. Periorbital areas with no swelling, redness, or edema. Neck: Trachea midline, no thyromegaly or masses palpated, and no cervical lymphadenopathy. Supple, full range of motion without nuchal rigidity, or vertebral point tenderness. No Meningismus. Chest/axilla: Normal chest wall appearance and motion. Nontender with no deformity. No lesions are appreciated. Cardiovascular: Regular rate and rhythm with a normal S1 and S2. No gallops, murmurs, or rubs. Normal PMI, no JVD. No pulse deficits. Back: No spinal tenderness. No costovertebral tenderness. Full range of motion. 21:00 Respiratory: the patient does not display signs of respiratory distress, Respirations: normal, Breath sounds: rales, that are moderate, are scattered, are located in both bases, are heard diffusely, 21:00 Abdomen/GI: Inspection: distension, obese 21:00 Skin: Patient has a swollen right leg up to the knee. It is slightly cooler than the other leg but not substantially different on my initial exam. There is considerable erythema from the knee down to the tip of the toes. Family states that this is been getting worse recently. In addition there is about dime sized lesion on the back of the lower calf that is draining/weeping fluid. No cords are palpable. Vital Signs: 11:11 BP 104 / 75; Pulse 81; Resp 18; Temp 98(O); Pulse Ox 99% ; Weight 104.33 kg; Height 5 hb ft. 7 in. ; Pain 0/10; 13:23 BP 122 / 86; Pulse 94; Resp 20 S; Pulse Ox 100% on R/A; kc6 15:19 BP 105 / 64; Pulse 108; Resp 18 S; Pulse Ox 100% on 2 lpm NC; kc6 19:30 BP 119 / 105; Pulse 110; Resp 22; Temp 97.9; Pulse Ox 100% on 3 lpm NC; Pain 0/10; pf1 19:40 Pulse 162; pf1 20:00 BP 95 / 63; Pulse 99; Resp 20; Pulse Ox 97% on 3 lpm NC; pf1 20:22 BP 112 / 76; Pulse 99; Resp 20; Pulse Ox 97% on 3 lpm NC; pf1 11:11 Body Mass Index 36.02 (104.33 kg, 170.18 cm) hb 11:11 Pain Scale: Adult hb 19:30 Pain Scale: Adult pf1 MDM: 15:49 Patient medically screened. kdr 21:11 Data reviewed: vital signs, nurses notes. kdr 07/10 12:23 Order name: Blood Culture Adult (2) kdr 07/10 12:23 Order name: CBC with Diff; Complete Time: 14:31 kdr 07/10 12:23 Order name: CMP; Complete Time: 14:31 kdr 07/10 12:23 Order name: Lactate w/ 2H reflex if indic.; Complete Time: 14:31 kdr 07/10 12:23 Order name: Protime (+inr); Complete Time: 14:31 kdr 07/10 12:23 Order name: Ptt, Activated; Complete Time: 14:31 kdr 07/10 16:29 Order name: T4 Free EDAL 07/10 16:29 Order name: Thyroid Stimulating Hormone EDMS 07/10 16:29 Order name: Urinalysis w/ reflexes EDMS 07/10 16:29 Order name: Basic Metabolic Panel EDMS 07/10 16:29 Order name: Basic Metabolic Panel EDMS 07/10 16:29 Order name: Basic Metabolic Panel EDMS 07/10 16:29 Order name: Basic Metabolic Panel EDMS 07/10 16:29 Order name: Basic Metabolic Panel EDMS 07/10 16:29 Order name: Basic Metabolic Panel EDMS 07/10 16:29 Order name: Basic Metabolic Panel EDMS 07/10 16:29 Order name: Basic Metabolic Panel EDAL 07/10 16:29 Order name: CBC with Automated Diff EDMS 07/10 16:29 Order name: CBC with Automated Diff EDMS 07/10 16:29 Order name: CBC with Automated Diff EDMS 07/10 16:29 Order name: CBC with Automated Diff EDMS 07/10 16:29 Order name: CBC with Automated Diff EDMS 07/10 16:29 Order name: CBC with Automated Diff EDMS 07/10 16:29 Order name: CBC with Automated Diff EDMS 07/10 16:29 Order name: CBC with Automated Diff EDMS 07/10 16:29 Order name: Magnesium EDMS 07/10 16:29 Order name: Magnesium EDMS 07/10 16:29 Order name: Magnesium EDMS 07/10 16:29 Order name: Magnesium EDMS 07/10 16:29 Order name: Magnesium EDMS 07/10 16:29 Order name: Magnesium EDMS 07/10 16:29 Order name: Magnesium EDMS 07/10 16:29 Order name: Magnesium EDMS 07/10 16:29 Order name: Phosphorus EDMS 07/10 16:29 Order name: Phosphorus EDMS 07/10 16:29 Order name: Phosphorus EDMS 07/10 16:29 Order name: Phosphorus EDMS 07/10 16:29 Order name: Phosphorus EDMS 07/10 16:29 Order name: Phosphorus EDMS 07/10 16:29 Order name: Phosphorus EDMS 07/10 16:29 Order name: Phosphorus EDMS 07/10 16:36 Order name: Lactate w/ 2H reflex if indic. EDMS 07/10 16:41 Order name: Hemoglobin A1c EDMS 07/10 12:23 Order name: US Extremity Venous Unilateral Ltd; Complete Time: 14:31 kdr 07/10 18:45 Order name: US EDMS 07/10 12:23 Order name: EKG; Complete Time: 12:24 kdr 07/10 12:23 Order name: Accucheck; Complete Time: 13:16 kdr 07/10 12:23 Order name: Cardiac monitoring; Complete Time: 13:16 kdr 07/10 12:23 Order name: EKG - Nurse/Tech; Complete Time: 13:16 kdr 07/10 12:23 Order name: IV Saline Lock - Large Bore; Complete Time: 13:16 kdr 07/10 12:23 Order name: Labs collected and sent; Complete Time: 13:16 kdr 07/10 12:23 Order name: O2 Per Protocol; Complete Time: 12:43 kdr 07/10 12:23 Order name: O2 Sat Monitoring; Complete Time: 12:43 kdr 07/10 12:23 Order name: Vital Signs; Complete Time: 13:16 kdr 07/10 14:41 Order name: EKG - Nurse/Tech; Complete Time: 15:19 kdr Administered Medications: 14:21 Drug: Ativan IVP 0.5 mg IVP once Route: IVP; Site: right antecubital; kc6 15:19 Follow up: Response: No adverse reaction; Anxiety decreased; RASS: Alert and Calm (0) kc6 15:19 Drug: Rocephin - Rocephin (cefTRIAXone) IVPB 1 grams IVPB once over 30 mins; (mix in 50 kc6 mL NS) Route: IVPB; Infused Over: 30 mins; Site: right antecubital; 19:00 Follow up: Response: No adverse reaction; Marked relief of symptoms; IV Status: pf1 Completed infusion 15:59 Not Given (Physician Discretion; potassium 4.00): potassium chlorideliquid 40 meq PO kc6 once Disposition Summary: 07/10/23 15:49 Hospitalization Ordered Notes: Hospitalization Status: Observation kdr Provider: Roger Goldberg Location: Telemetry/MedSurg (observation) kdr Condition: Fair kdr Problem: new kdr Symptoms: have improved kdr Bed/Room Type: Standard kdr Room Assignment: 225(07/10/23 17:58) sp Diagnosis - Typical atrial flutter kdr - Unspecified atrial flutter kdr - Shortness of breath kdr - Cellulitis of right lower limb kdr Forms: - Medication Reconciliation Form kdr - SBAR form kdr - Leadership Thank You Letter kdr Signatures: Dispatcher [employer] EDMS Bogdan Bolton MD MD kdr Nabila Villeda Heather, RN RN hb Campbell, Kaitlyn, RN RN 6 Christina Gonzalez RN RN pf1 Corrections: (The following items were deleted from the chart) 11:14 11:13 PMHx: 3L Home O2 (stents to the DONN lower legs); hb hb 11:14 11:13 PMHx: 3L Home O2 (stents to the DONN lower legs); hb hb 17:58 15:49 kdr sp
--- NOTE | 2023-07-10 15:50 | ER ---
Nurse's Notes [facility] Name: Oswaldo Chou Age: 72 yrs Sex: Male : 1950 Arrival Date: 07/10/2023 Time: 10:28 Bed 19 Private MD: Diagnosis: Typical atrial flutter;Unspecified atrial flutter;Shortness of breath;Cellulitis of right lower limb Presentation: 07/10 11:11 Chief complaint: Right leg swelling and redness x 2 weeks, wound on back of right calf hb x 10 days. Coronavirus screen: At this time, the client does not indicate any symptoms associated with coronavirus-19. Ebola Screen: No symptoms or risks identified at this time. Initial Sepsis Screen: Does the patient meet any 2 criteria? No. Patient's initial sepsis screen is negative. Does the patient have a suspected source of infection? No. Patient's initial sepsis screen is negative. Risk Assessment: Do you want to hurt yourself or someone else? Patient reports no desire to harm self or others. Onset of symptoms was June 26, 2023. 11:11 Method Of Arrival: Wheelchair hb 11:11 Acuity: REINA 3 hb Historical: - Allergies: 11:13 adhesive tape; hb - PMHx: 11:13 Atrial fibrillation; hb - PSHx: 11:13 back surgery; stents to the DONN lower legs; hb - Social history:: Smoking status: Patient/guardian denies using tobacco, but has a distant history of tobacco abuse. Screenin:16 [facility] ED Fall Risk Assessment (Adult) History of falling in the last 3 months, kc6 including since admission No falls in past 3 months (0 pts) Confusion or Disorientation No (0 pts) Intoxicated or Sedated No (0 pts) Impaired Gait No (0 pts) Mobility Assist Device Used No (0 pt) Altered Elimination No (0 pt) Score/Fall Risk Level 0 - 2 = Low Risk. Abuse screen: Denies threats or abuse. Denies injuries from another. Nutritional screening: No deficits noted. Tuberculosis screening: No symptoms or risk factors identified. Assessment: 13:22 General: Appears in no apparent distress. uncomfortable, obese, well groomed, well kc6 developed, Behavior is calm, cooperative, appropriate for age, Reports feeling ill for fatigue for. Pain: Denies pain. Neuro: Level of Consciousness is awake, alert, obeys commands, Oriented to person, place, time, situation, Appropriate for age. Cardiovascular: Denies chest pain, Heart tones S1 S2 present Capillary refill < 3 seconds Rhythm is atrial flutter. Respiratory: Reports shortness of breath on exertion Airway is patent Trachea midline Respiratory effort is even, unlabored, Respiratory pattern is regular, symmetrical. GI: No signs and/or symptoms were reported involving the gastrointestinal system. : No signs and/or symptoms were reported regarding the genitourinary system. EENT: No signs and/or symptoms were reported regarding the EENT system. Derm: Skin is intact, is healthy with good turgor, Skin is pink, warm \T\ dry. Wound noted right leg. Musculoskeletal: No signs and/or symptoms reported regarding the musculoskeletal system. Circulation, motion, and sensation intact. Capillary refill < 3 seconds, Range of motion: intact in all extremities. 14:22 Reassessment: Patient appears in no apparent distress at this time. No changes from [facility] previously documented assessment. Patient and/or family updated on plan of care and expected duration. Pain level reassessed. Patient is alert, oriented x 3, equal unlabored respirations, skin warm/dry/pink. 15:22 Reassessment: Patient appears in no apparent distress at this time. No changes from kc6 previously documented assessment. Patient and/or family updated on plan of care and expected duration. Pain level reassessed. Patient is alert, oriented x 3, equal unlabored respirations, skin warm/dry/pink. 16:22 Reassessment: Patient appears in no apparent distress at this time. No changes from 6 previously documented assessment. Patient and/or family updated on plan of care and expected duration. Pain level reassessed. Patient is alert, oriented x 3, equal unlabored respirations, skin warm/dry/pink. 17:22 Reassessment: Patient appears in no apparent distress at this time. No changes from kc6 previously documented assessment. Patient and/or family updated on plan of care and expected duration. Pain level reassessed. Patient is alert, oriented x 3, equal unlabored respirations, skin warm/dry/pink. 18:36 Reassessment: attempted to call report to 2nd floor twice. no answer from INGA Eduardo. [facility] 19:00 General: Appears in no apparent distress. uncomfortable, obese, well groomed, well pf1 developed, Behavior is calm, cooperative, appropriate for age, quiet, Reports fatigue for. 19:00 Pain: Denies pain. Neuro: No deficits noted. Level of Consciousness is awake, alert, pf1 obeys commands, Oriented to person, place, time, situation. Cardiovascular: Denies chest pain, Capillary refill < 3 seconds Patient's skin is warm and dry. Respiratory: No deficits noted. Airway is patent Respiratory effort is even, unlabored, Respiratory pattern is regular, symmetrical. Respiratory: Reports Patient on 3LNC at home. GI: No deficits noted. : No deficits noted. No signs and/or symptoms were reported regarding the genitourinary system. EENT: No deficits noted. No signs and/or symptoms were reported regarding the EENT system. Derm: Skin is intact, is healthy with good turgor, Skin is pink, warm \T\ dry. Reports swelling and redness to right lower extremity and foot for 3 months. 19:45 Reassessment: Notified Dr. Johnson of patient's Aflutter [id number]. pf1 20:03 Reassessment: attempted report at 2002. pf1 20:05 Reassessment: Patient appears in no apparent distress at this time. No changes from pf1 previously documented assessment. Patient and/or family updated on plan of care and expected duration. Pain level reassessed. Vital Signs: 11:11 BP 104 / 75; Pulse 81; Resp 18; Temp 98(O); Pulse Ox 99% ; Weight 104.33 kg; Height 5 hb ft. 7 in. ; Pain 0/10; 13:23 BP 122 / 86; Pulse 94; Resp 20 S; Pulse Ox 100% on R/A; kc6 15:19 BP 105 / 64; Pulse 108; Resp 18 S; Pulse Ox 100% on 2 lpm NC; kc6 19:30 BP 119 / 105; Pulse 110; Resp 22; Temp 97.9; Pulse Ox 100% on 3 lpm NC; Pain 0/10; pf1 19:40 Pulse 162; pf1 20:00 BP 95 / 63; Pulse 99; Resp 20; Pulse Ox 97% on 3 lpm NC; pf1 20:22 BP 112 / 76; Pulse 99; Resp 20; Pulse Ox 97% on 3 lpm NC; pf1 11:11 Body Mass Index 36.02 (104.33 kg, 170.18 cm) hb 11:11 Pain Scale: Adult hb 19:30 Pain Scale: Adult pf1 ED Course: 10:31 Patient arrived in ED. ts1 10:32 Bogdan Bolton MD is Attending Physician. kdr 11:13 Triage completed. hb 11:14 Arm band placed on. hb 12:48 Brenda Quiroga RN is Primary Nurse. kc6 13:16 Patient has correct armband on for positive identification. Bed in low position. Call kc6 light in reach. Side rails up X2. Adult w/ patient. Client placed on continuous cardiac and pulse oximetry monitoring. NIBP monitoring applied. cafeteria monitor on. 13:16 Inserted saline lock: 20 gauge in right antecubital area, using aseptic technique. kc6 Blood collected. Oxygen administration via nasal cannula \T\ 2L/min. 13:27 US Extremity Venous Unilateral Ltd In Process Unspecified. EDMS 15:47 Roger Goldberg MD is Hospitalizing Provider. kdr 20:15 No provider procedures requiring assistance completed. IV discontinued, intact, pf1 bleeding controlled, No redness/swelling at site. Pressure dressing applied, per patient's request, IV was hurting. 20:21 Provided Education on: need for admit. pf1 Administered Medications: 14:21 Drug: Ativan IVP 0.5 mg IVP once Route: IVP; Site: right antecubital; kc6 15:19 Follow up: Response: No adverse reaction; Anxiety decreased; RASS: Alert and Calm (0) kc6 15:19 Drug: Rocephin - Rocephin (cefTRIAXone) IVPB 1 grams IVPB once over 30 mins; (mix in 50 kc6 mL NS) Route: IVPB; Infused Over: 30 mins; Site: right antecubital; 19:00 Follow up: Response: No adverse reaction; Marked relief of symptoms; IV Status: pf1 Completed infusion 15:59 Not Given (Physician Discretion; potassium 4.00): potassium chlorideliquid 40 meq PO kc6 once Medication: 20:21 VIS not applicable for this client. pf1 Outcome: 15:49 Decision to Hospitalize by Provider. kdr 20:20 Admitted to Tele accompanied by nurse, via stretcher, room 225, with oxygen, on pf1 monitor, with chart, Report called to INGA Reyes 20:20 Condition: stable 20:20 Instructed on the need for admit, 20:32 Patient left the ED. pf1 Signatures: Dispatcher [employer] Bogdan Nieto MD MD [facility] Tiffanie Larsen RN RN hb Brenda Quiroga RN RN kc6 Christina Gonzalez RN RN pf1 Juany Youssef PAS PAS ts1 Corrections: (The following items were deleted from the chart) 11:14 11:13 PMHx: 3L Home O2 (stents to the DONN lower legs); hb hb 11:14 11:13 PMHx: 3L Home O2 (stents to the DONN lower legs); hb hb 20:04 19:30 BP 95 / 63; Pulse 99bpm; Resp 20bpm; Pulse Ox 97% 3 lpm Nasal Cannula; pf1 pf1
[2023-07-10] MEDS ORDERED: POTASSIUM CL SA 10 MEQ TAB PO ONE (15:54)
[2023-07-10] MEDS ORDERED: LORazepam 2 MG/ML VIAL IV PRN (16:20)
[2023-07-10] MEDS ORDERED: ACETAMINOPHEN 500 MG TAB PO PRN (16:20)
--- NOTE | 2023-07-10 16:20 | P.HP ---
Certification for Inpatient Patient admitted to: Observation With expected LOS: <2 Midnights Patient will require the following post-hospital care: None Practitioner: I am a practitioner with admitting privileges, knowledge of patient current condition, hospital course, and medical plan of care. Services: Services provided to patient in accordance with Admission requirements found in Title 42 Section 412.3 of the Code of Federal Regulations Patient History Date of Service: 07/10/23 Reason for admission: Cellulitis of right lower extremity History of Present Illness: Alfonso Chou is a 72-year-old male with past medical history of atrial fibrillation, asthma, on 3 L nasal cannula at home for unknown reason, PAD lateral lower extremity stents who presented to the ED with complaints of right lower extremity swelling. Ultrasound of right lower extremity shows no DVT. While in the ED blood cultures taken, Rocephin started, Ativan given for ag itation. Laboratory evaluation WBC 8, H&H 14/44, sodium 137, potassium 4.0, BUN/creatinine 9/1.0, GFR 80, lactic acid 1.5, serum glucose 139. Initial vitals BP 104 / 75; Pulse 81; Resp 18; Temp 98(O); Pulse Ox 99%. On examination, Alfonso's right lower extremity with 3+ pitting edema with erythema to pedal area and juarez of right extremity. Faint pedal pulse d/t edema present. Alfonso reports being wheelchair-bound due to PAD to bilateral lower extremities. Alfonso was agitated and a poor historian. We will need to contact his for any of his medical history. Alfonso will be admitted to hospitalist service for further evaluation and treatment of cellulitis of right lower extremity. Allergies adhesive tape Allergy (Verified 09/22/22 13:47) Hives/Rash Home Medications: Amiodarone HCl [Cordarone*] 200 mg PO BID #60 tab 08/12/22 traMADol HCL [Ultram*] 50 mg PO Q6H PRN #30 tab 08/12/22 Amiodarone HCl [Cordarone*] 200 mg PO BID 90 Days #180 tab 08/16/22 Clopidogrel Bisulfate [Plavix*] 75 mg PO BEDTIME 90 Days #90 tab 08/16/22 Furosemide [Lasix] 40 mg PO DAILY 90 Days #90 tab 08/16/22 Metoprolol Tartrate [Lopressor*] 12.5 mg PO [id number] 90 Days #180 tab 08/16/22 Rivaroxaban [Xarelto] 1 tab PO DAILY 90 Days #90 tab 08/16/22 - Past Medical/Surgical History Diabetic: No -: Atrial fib -: Asthma -: BLE stent - Social History Alcohol use: No CD- Drugs: No Caffeine use: No Review of Systems General: Unremarkable Eyes: Unremarkable ENT: Unremarkable Respiratory: SOB with Excertion Cardiovascular: Unremarkable Gastrointestinal: Unremarkable Genitourinary: Retention Musculoskeletal: Other (Bilateral lower extremity weakness/numbness) Integumentary: Other (Erythema to right lower extremity) Neurological: Weakness (Bilateral lower extremity), Numbness (Bilateral lower extremities) Lymphatics: Unremarkable Physical Examination - Physical Exam General: Alert, In no apparent distress, Oriented x3, Other (Agitated) HEENT: Atraumatic, Normocephalic, PERRLA Neck: Supple, 2+ carotid pulse no bruit, JVD not distended Respiratory: Clear to auscultation bilaterally, Normal air movement Cardiovascular: Regular rate/rhythm, Normal S1 S2, Edema (Right lower extremity), Abnormal pulses (Faint pedal pulse due to 3+ edema) Capillary refill: <2 Seconds Gastrointestinal: Normal bowel sounds, Distended (Obese) Musculoskeletal: Swelling (Right lower extremity) Integumentary: Erythema (Right lower extremity) Neurological: Normal speech, Normal strength at 5/5 x4 extr, Normal tone - Studies Laboratory Data (last 24 hrs) 07/10/23 07/10/23 07/10/23 13:09 13:09 13:09 WBC 8.40 Hgb 14.9 Hct 44.4 Plt Count 234 PT 11.5 INR 1.05 APTT 32.3 Sodium 137 Potassium 4.0 BUN 9 Creatinine 1.00 Glucose 139 H Total Bilirubin 0.5 AST 18 ALT 24 Alkaline Phosphatase 82 Assessment and Plan - Plan Assessment and plan Cellulitis of the right lower extremity in patient with PAD requiring bilateral lower extremity stents 3+ pitting edema to right lower extremity WBC 8, lactic acid 1.5 with serial trending Follow blood cultures Ultrasound of right lower extremity resulted with no DVT Wheelchair-bound Rocephin given in the ED, clindamycin started on the floor Lasix x 4 doses New onset a fluttbal Salguero reports A-fib in the past Amiodarone twice daily, Xarelto daily we will continue History of asthma Home oxygen 3 L nasal cannula, for unknown reason Hyperglycemia Serum glucose 139 A1c pending Will monitor in a.m. labs then decide on insulin therapy Decreased p.o. intake Initiate high-calorie protein shakes Consult nutrition DVT PPx Lovenox Full code LOS 2 to 3 days Discharge Plan: Home Plan to discharge in: 48 Hours - Advance Directives Does patient have a Living Will: No Does patient have a Durable POA for Healthcare: No Time Spent Managing Pts Care (In Minutes): 55
[2023-07-10] MEDS ORDERED: MORPHINE 2 MG/ML SYR IV PRN (16:33)
[2023-07-10] MEDS ORDERED: CLINDAMYCIN INJ 900 MG in NA CHLORIDE 0.9% 50 ML IV SCH (17:00)
--- NOTE | 2023-07-10 18:45 | RAD REPORT ---
EXAM DESCRIPTION: US - Lower Extremity Artery Uni Ltd - 07/10/2023 6:06 pm CLINICAL HISTORY: eval arterial flow, h/o PAD and stenting COMPARISON: Lower Ext Wo Con W/ Mpr dated 08/10/2022 TECHNIQUE: Right lower extremity arterial Doppler examination was performed with waveform tracing. FINDINGS: Evaluation is limited by suboptimal positioning. Unequal spacing of the waveforms, suggesting arrhythmia. Triphasic waveforms are seen along the right common femoral and superficial femoral arteries. Biphasi c waveforms seen at the popliteal artery through dorsalis pedis artery. IMPRESSION: Evidence of mild right lower extremity peripheral vascular disease.
[2023-07-10] MEDS: FUROSEMIDE 40 MG/4 ML VIAL IV SCH (22:17)
[2023-07-10] MEDS: CLINDAMYCIN 900MG/D5W 900 MG/50 ML IVPB IV SCH (22:51)
[2023-07-11 00:15] VITALS: BMI 36.0
[2023-07-11 03:03] LABS: Absolute Lymphocytes (CBC) 1.3 K/uL (0.7-4.9); Hematocrit 42.2 % (39.6-49.0); Lymphocytes % 14.4 % (15.3-44.8); MCV 98.5 fL (80-100); MPV 7.9 fL (7.6-11.3); Platelets 215 thou/uL (152-406); RBC Red Blood Cell Count 4.29 M/uL (4.33-5.43)
[2023-07-11 03:35] LABS: Phosphorus 3.3 mg/dL (2.5-4.9); Potassium 3.5 mEq/L (3.5-5.1)
[2023-07-11 04:30] LABS: Thyroid Stimulating Hormone 6.67 uIU/mL (0.358-3.740)
[2023-07-11] MEDS ORDERED: POTASSIUM CL SA 10 MEQ TAB PO ONE (06:00)
[2023-07-11] MEDS: CLINDAMYCIN 900MG/D5W 900 MG/50 ML IVPB IV SCH (06:01)
[2023-07-11] MEDS: FUROSEMIDE 40 MG/4 ML VIAL IV SCH (08:51)
[2023-07-11] MEDS ORDERED: ENOXAPARIN 40 MG/0.4 ML SQ SCH (09:00)
[2023-07-11 09:09] VITALS: O2SAT 95
--- NOTE | 2023-07-11 11:17 | P.PN ---
Date of Service: 07/11/23 Subjective: Sleeping, Right lower extremity with more erythema, 3+ pitting edema. ROS: 10 point ROS as noted above, otherwise negative Physical Exam General: Alert, In no apparent distress, Oriented x3, Other (Agitated) HEENT: Atraumatic, Normocephalic, PERRLA Neck: Supple, 2+ carotid pulse no bruit, JVD not distended Respiratory: Clear to auscultation bilaterally, Normal air movement Cardiovascular: Regular rate/rhythm, Normal S1 S2, Edema (Right lower extremity), Abnormal pulses (Faint pedal pulse due to 3+ edema) Capillary refill: <2 Seconds Gastrointestinal: Normal bowel sounds, Distended (Obese) Musculoskeletal: 3+ edema (Right lower extremity) Integumentary: Erythema (Right lower extremity) Neurological: Normal speech, Normal strength at 5/5 x4 extr, Normal tone Vitals Reviewed Plan Assessment and plan Cellulitis of the right lower extremity in patient with PAD requiring bilateral lower extremity stents 3+ pitting edema to right lower extremity WBC 8, lactic acid 1.5/1.3 Follow blood cultures- pending Ultrasound of right lower extremity resulted with no DVT Wheelchair-bound Rocephin given in the ED, clindamycin started on the floor Lasix x 4 doses LUCILLE hose applied to right lower extremity New onset a flutter Jose M reports A-fib in the past Amiodarone twice daily, Xarelto daily we will continue TSH 6.670/ Free T4 1.23 History of asthma Home oxygen 3 L nasal cannula, for unknown reason Hyperglycemia Serum glucose 139 A1c pending Will monitor in a.m. labs then decide on insulin therapy Decreased p.o. intake Initiate high-calorie protein shakes Consult nutrition DVT PPx Lovenox Full code LOS 2 to 3 days Discharge Plan: Home Plan to discharge in: 48 Hours Time Spent Managing Pts Care (In Minutes): 35
[2023-07-11 12:53] VITALS: TEMP 97.9
[2023-07-11] MEDS ORDERED: CLINDAMYCIN 900MG/D5W 900 MG/50 ML IVPB IV SCH (15:00)
[2023-07-11 16:40] VITALS: BP 135/71
--- NOTE | 2023-07-11 17:45 | P.DS ---
Admission Date: 07/10/23 Discharge Date: 07/11/23 Disposition: ROUTINE DISCHARGE Discharge Condition: FAIR Reason for Admission: Cellulitis of right lower extremity Brief History of Present Illness: Diagnosis: Cellulitis of the right lower extremity in patient with PAD requiring bilateral lower extremity stents 3+ pitting edema to right lower extremity New onset Atrial flutter in patient with Atrial fibrillation History of asthma Hyperglycemia Decreased p.o. intake Hospital Course: Oswaldo Chou is a 72-year-old male who presented to the ED with complaints of right lower extremity swelling. He has an extensive medical history for PAD bilateral lower extremities, femoral stents bilaterally, chronic wound to right leg, chronic edema to right leg with frequent treatments of compression with elevation. Concern for cellulitis to right lower extremity due to erythema and 3+ pitting edema, Oswaldo was admitted. Blood cultures taken while in the ED, Rocephin started in the ED and changed to clindamycin when he arrived to the floor. Oswaldo has tolerated IV antibiotics, is ambulating independently, on 3 L nasal cannula (home oxygen use) sating 96%, tolerating p.o. diet, no complaints of pain due to paresthesia to bilateral lower extremities, and requesting discharge. Will continue to follow blood cultures and be in contact his son, Jermaine, once it results. Please follow-up with Dr. Colindres in 3 to 5 days, wear compression sock to right lower extremity for 6 hours a day while elevating the extremity, and to complete antibiotic course with clindamy andrew which has been called into the chosen pharmacy. Vital Signs/Physical Exam: Temp Pulse Resp BP Pulse Ox 97.9 F 73 18 135/71 96 07/11/23 16:00 07/11/23 16:00 07/11/23 16:00 07/11/23 16:00 07/11/23 16:00 Laboratory Data at Discharge: WBC 9.00 thou/uL (4.3-10.9) 07/11/23 02:27 Hgb 13.9 g/dL (13.6-17.9) 07/11/23 02:27 Hct 42.2 % (39.6-49.0) 07/11/23 02:27 Plt Count 215 thou/uL (152-406) 07/11/23 02:27 PT 11.5 SECONDS (9.5-12.5) 07/10/23 13:09 INR 1.05 07/10/23 13:09 APTT 32.3 SECONDS (24.3-36.9) 07/10/23 13:09 Sodium 138 mEq/L (136-145) 07/11/23 02:27 Potassium 3.5 mEq/L (3.5-5.1) 07/11/23 02:27 BUN 12 mg/dL (7-18) 07/11/23 02:27 Creatinine 0.94 mg/dL (0.70-1.30) 07/11/23 02:27 Glucose 100 mg/dL (74-106) 07/11/23 02:27 Phosphorus 3.3 mg/dL (2.5-4.9) 07/11/23 02:27 Magnesium 2.0 mg/dL (1.6-2.4) 07/11/23 02:27 Total Bilirubin 0.5 mg/dL (0.2-1.0) 07/10/23 13:09 AST 18 U/L (15-37) 07/10/23 13:09 ALT 24 U/L (16-61) 07/10/23 13:09 Alkaline Phosphatase 82 U/L (45-117) 07/10/23 13:09 Home Medications: Clopidogrel Bisulfate [Plavix*] 75 mg PO BEDTIME 90 Days #90 tab 08/16/22 Atorvastatin Calcium 20 mg PO BEDTIME 07/10/23 Metoprolol Tartrate [Lopressor*] 25 mg PO [id number] 07/10/23 clindamycin HCL [Clindamycin HCl] 300 mg PO BID 5 Days #10 cap 07/11/23 New Medications: clindamycin HCL [Clindamycin HCl] 300 mg PO BID 5 Days #10 cap Physician Discharge Instructions: Physical Exam General: Alert, In no apparent distress, Oriented x3, Other (Agitated) HEENT: Atraumatic, Normocephalic, PERRLA Neck: Supple, 2+ carotid pulse no bruit, JVD not distended Respiratory: Clear to auscultation bilaterally, Normal air movement Cardiovascular: Regular rate/rhythm, Normal S1 S2, Edema (Right lower extremity), Abnormal pulses (Faint pedal pulse due to 3+ edema) Capillary refill: <2 Seconds Gastrointestinal: Normal bowel sounds, Distended (Obese) Musculoskeletal: 3+ edema (Right lower extremity) Integumentary: Erythema (Right lower extremity) Neurological: Normal speech, Normal strength at 5/5 x4 extr, Normal tone 1. Please call and schedule a follow-up appointment with your Dr. Colindres in 3-5 days - Please follow-up with your PCP for medication refills/adjustments and continued Right lower extremity edema 2. Wear LUCILLE hose (compression sock) on right lower extremity for 6 hours at a time. 3. Elevated right lower extremity to help with drainage of the fluid 4. Continue with Clinidamycin antibiotic twice a day for five days 5. ROTARY KILN OPERATOR will call Jermaine with blood culture results both on Thursday and Thursday new medication Clindamycin 300 mg capsule by mouth twice daily for five days Diet: AHA Activity: Fall precautions Followup: Amrik Colindres MD [Primary Care Provider] - Time spent managing pt's care (in minutes): 55
[2023-07-11] MEDS ORDERED: CLOPIDOGREL 75 MG TABLET PO SCH (21:00)
[2023-07-11] MEDS ORDERED: ATORVASTATIN 20 MG TAB PO SCH (21:00)
[2023-07-12] MEDS ORDERED: METOPROLOL TAR 25 MG TAB PO SCH ×2 (06:00)
--- NOTE | 2023-07-16 13:39 | EKG ---
Test Date: 2023-07-10 Test Time: 15:11:35 Tourist Adviser: TIM MEASUREMENT RESULTS: Intervals: Rate: 106 [place]: QRSD: 96 QT: 380 QTc: 504 [place]: P: TN: QRS: 234 T: 86 INTERPRETIVE STATEMENTS: Atrial flutter with variable AV block Right superior axis deviation Right ventricular hypertrophy Abnormal ECG Compared to ECG 07/10/2023 12:55:25 Right superior axis now present Right ventricular hypertrophy now present Left-axis deviation no longer present ST (T wave) deviation no longer present Prolonged QT interval no longer present Electronically Signed On 07-16-23 13:27:47 EQUIPMENT TECHNICIAN by Yovani Choudhury
--- NOTE | 2023-07-16 13:40 | EKG ---
Test Date: 2023-07-10 Test Time: 12:55:25 Housekeeper Caregiver: BP MEASUREMENT RESULTS: Intervals: Rate: 98 [place]: QRSD: 90 QT: 376 QTc: 480 [place]: P: 76 [place]: QRS: -71 T: 50 INTERPRETIVE STATEMENTS: Atrial flutter with variable AV block Left axis deviation Low voltage QRS Nonspecific ST abnormality Prolonged QT Abnormal ECG Compared to ECG 08/10/2022 00:33:14 Low QRS voltage now present ST (T wave) deviation now present Prolonged QT interval now present Sinus rhythm no longer present Electronically Signed On 07-16-23 13:28:17 CELL TECHNICIAN by Yovani Choudhury
== END 2023-07-11 17:09 | disposition home or self-care (01) ==
LOC: ER 10:28 → ERHOLD 16:42 → 2ND 19:08
PROVIDERS: ADMIT Hospitalist; ATTEND Hospitalist
DX: L03.115 Cellulitis of right lower limb (principal); I48.91 Unspecified atrial fibrillation; J45.909 Unspecified asthma, uncomplicated; R60.9 Edema, unspecified; I73.9 Peripheral vascular disease, unspecified; R73.9 Hyperglycemia, unspecified; I48.92 Unspecified atrial flutter; R63.8 Other symptoms and signs concerning food and fluid intake; R06.02 Shortness of breath; Z99.81 Dependence on supplemental oxygen
CPT/HCPCS: 96365; 93005; 87040 ×2; 85025 ×2; 80048; 36415; 83735; 84100; 85610; 83605 ×2; 85730; 84443; 83036; 84439; 80053; 93926; 93971; 96375; 99285; 96366; J1940 ×2; J1650; J0696; G0378 ×4

== ENCOUNTER 2024-09-30 09:57 | Inpatient (IN) | payer OTHER ==
[2024-09-30] MEDS ORDERED: LEVALBUTEROL 1.25 MG/3 ML NEB ONE ×2 (10:37→12:37)
[2024-09-30 10:45] LABS: Absolute Basophils 0.1 K/uL (0-0.5); Absolute Eosinophils 0.1 K/uL (0-0.5); Absolute Lymphocytes (CBC) 1.4 K/uL (0.7-4.9); Absolute Monocytes 0.4 K/uL (0.1-1.3); Basophils % 1.2 % (0-1.3); Eosinophils % 1.8 % (0-4.4); Hematocrit 47.3 % (39.6-49.0); Hemoglobin 15.4 g/dL (13.6-17.9); Lymphocytes % 28.5 % (15.3-44.8); MCH 32.7 pg (27.0-35.0); MCHC 32.6 g/dL (32.0-36.0); MCV 100.5 fL (80-100); MPV 8.1 fL (7.6-11.3); Monocytes % 8.3 % (3.3-12.3); Neutrophils % 60.2 % (41.7-73.7); Nucleated Red Blood Cells % 0.3 % (0-0); Platelets 171 thou/uL (152-406); RBC Red Blood Cell Count 4.71 M/uL (4.33-5.43); Red Cell Distribution Width 14.9 % (12.1-15.2)
--- NOTE | 2024-09-30 10:56 | RAD REPORT ---
EXAMINATION: ONE VIEW CHEST XR CLINICAL INDICATION: DYSPNEA TECHNIQUE: Frontal chest projection is submitted. Examination is limited by patient positioning and t echnique. COMPARISON: 12/07/2023 FINDINGS: Mild linear atelectasis is present in both lung bases. The lungs are otherwise grossly clear. The hea rt is upper limit of normal in size. No displaced fractures identified.
[2024-09-30 11:16] LABS: ALT/SGPT 25 U/L (16-61); Albumin 3.2 g/dL (3.4-5.0); Albumin/Globulin Ratio 0.9 (1.1-1.8); Alkaline Phosphatase 80 U/L (45-117); BUN Blood Urea Nitrogen 8 mg/dL (7-18); Bicarbonate 33 mEq/L (21-32); Bilirubin Total 0.7 mg/dL (0.2-1.0); Globulin 3.5 g/dL (2.3-3.5); Glomerular Filtration Rate 83 ml/min (=/>90); Glucose Level 145 mg/dL (74-106); NT PRO-BNP 1227 pg/mL (<125); Protein, Total 6.7 g/dL (6.4-8.2); Sodium Level 139 mEq/L (136-145); Troponin High Sensitivity 7.3 pg/mL (<58.9)
[2024-09-30 11:18] LABS: AST/SGOT 27 U/L (15-37); Bilirubin Direct < 0.2 mg/dL (0-0.2); Bilirubin Indirect, Calculated 0.5 mg/dL (0.2-0.8); Magnesium 1.9 mg/dL (1.6-2.4)
[2024-09-30] MEDS ORDERED: METHYLPREDNISOLONE 125 MG INJ ONE (12:40)
--- NOTE | 2024-09-30 12:41 | EDPHYS ---
Physician Documentation [facility] Name: Oswaldo Chou Age: 73 yrs Sex: Male : 1950 Arrival Date: 09/30/2024 Time: 09:57 Bed 20 Private MD: ED Physician Nolan Velazquez HPI: 09/30 12:42 This 73 yrs old Male presents to ER via Ambulatory with complaints of Low heart rate. rt 12:42 Patient presents to the ED with progressively worsening dyspnea for the past 3 weeks. rt Patient's states that he is heart rate in the 30s at home. Onto his doctor's office today, was found of heart rate is 54, sent to the ED for further evaluation. Patient denies other acute complaints at this time, symptoms are moderate in severity, no other aggravating or alleviating factors.. Historical: - Allergies: 10:15 adhesive tape; hb - PMHx: 10:15 Atrial fibrillation; hb - PSHx: 10:15 back surgery; stents to the DONN lower legs; hb - Immunization history:: Adult Immunizations up to date. - Infectious Disease History:: Denies. - Family history:: not pertinent. - Social history:: Smoking status: Patient/guardian denies using tobacco, but has a distant history of tobacco abuse. ROS: 12:42 Constitutional: Negative for fever, chills, and weight loss, Cardiovascular: Negative rt for chest pain, palpitations, and edema, Abdomen/GI: Negative for abdominal pain, nausea, vomiting, diarrhea, and constipation, MS/Extremity: Negative for injury and deformity, Skin: Negative for injury, rash, and discoloration, Neuro: Negative for headache, weakness, numbness, tingling, and seizure, 12:42 Respiratory: Positive for shortness of breath, Negative for cough, Exam: 12:42 Constitutional: This is a well developed, well nourished patient who is awake, alert, rt and in no acute distress. Head/Face: Normocephalic, atraumatic. Chest/axilla: Normal chest wall appearance and motion. Nontender with no deformity. No lesions are appreciated. Respiratory: Lungs have equal breath sounds bilaterally, clear to auscultation and percussion. No rales, rhonchi or wheezes noted. No increased work of breathing, no retractions or nasal flaring. Abdomen/GI: Soft, non-tender, with normal bowel sounds. No distension or tympany. No guarding or rebound. No evidence of tenderness throughout. Skin: Warm, dry with normal turgor. Normal color with no rashes, no lesions, and no evidence of cellulitis. MS/ Extremity: Pulses equal, no cyanosis. Neurovascular intact. Full, normal range of motion. Neuro: Awake and alert, GCS 15, oriented to person, place, time, and situation. Cranial nerves II-XII grossly intact. Motor strength 5/5 in all extremities. Sensory grossly intact. Cerebellar exam normal. Normal gait. 12:42 Cardiovascular: Tachycardic with a regular rhythm heart sounds normal, 12:47 ECG was reviewed by the Attending Physician. rt Vital Signs: 10:13 BP 97 / 82; Pulse 134; Resp 28; Temp 97.8(TE); Pulse Ox 95% on 2 lpm NC; Weight 104.33 hb kg; Height 5 ft. 7 in. ; Pain 1/10; 11:00 BP 118 / 90; Pulse 129; Resp 22; Pulse Ox 97% on 3 lpm NC; me1 12:00 BP 117 / 87; Pulse 122; Resp 20; Pulse Ox 93% on 3 lpm NC; me1 13:00 BP 104 / 82; Pulse 129; Resp 19; Pulse Ox 100% on 3 lpm NC; me1 13:59 BP 97 / 76; Pulse 112; Resp 24; Pulse Ox 96% on 3 lpm NC; me1 14:41 BP 101 / 71; Pulse 114; Resp 19; Pulse Ox 100% on 3 lpm NC; me1 10:13 Body Mass Index 36.02 (104.33 kg, 170.18 cm) hb 10:13 Pain Scale: Adult hb MDM: 10:15 Medical Screening Exam initiated rt 12:45 Differential Diagnosis Atrial fibrillation, sick sinus syndrome. Data reviewed: vital rt signs, nurses notes, lab test result(s), EKG, radiologic studies. Consideration of Admission/Observation Patient was admitted/placed on observation. Management of patient was discussed with the following: Refrigeration Systems Installer: Discussed with Dr. Cheng, recommends holding rate control medicines at this time due to risk of bradycardia. Recommends observation on telemetry.. I considered the following discharge prescriptions or medication management in the emergency department Medications were administered in the Emergency Department. See MAR. Independent interpretation of the following test(s) in the Emergency Department X-Ray: My interpretation is No infiltrate seen on interpretation of x-ray images. Care significantly affected by the following chronic conditions: Atrial fibrillation. Counseling: I had a detailed discussion with the patient and/or guardian regarding the historical points, exam findings, and any diagnostic results supporting the discharge/admit diagnosis, lab results, radiology results, the need for further work-up and treatment in the hospital. Response to treatment: There is no appreciated change of the patient's symptoms at this time. 09/30 10:22 Order name: Basic Metabolic Panel; Complete Time: 11:26 rt 09/30 10:22 Order name: CBC with Diff; Complete Time: 10:57 rt 09/30 10:22 Order name: LFT's; Complete Time: 11:26 rt 09/30 10:22 Order name: Magnesium; Complete Time: 11:26 rt 09/30 10:22 Order name: NT PRO-BNP; Complete Time: 11:26 rt 09/30 10:22 Order name: Troponin HS; Complete Time: 11:26 rt 09/30 10:22 Order name: TSH; Complete Time: 11:26 rt 09/30 12:56 Order name: COVID-19 Ag + Flu A+B Ag; Complete Time: 14:08 la1 09/30 13:02 Order name: Basic Metabolic Panel EDMS 09/30 13:02 Order name: Basic Metabolic Panel EDMS 09/30 13:02 Order name: Basic Metabolic Panel EDMS 09/30 13:02 Order name: Basic Metabolic Panel EDMS 09/30 13:02 Order name: Basic Metabolic Panel EDMS 09/30 13:02 Order name: CBC with Automated Diff EDMS 09/30 13:02 Order name: CBC with Automated Diff EDMS 09/30 13:02 Order name: CBC with Automated Diff EDMS 09/30 13:02 Order name: CBC with Automated Diff EDMS 09/30 13:02 Order name: CBC with Automated Diff EDMS 09/30 13:02 Order name: Magnesium EDMS 09/30 13:02 Order name: Magnesium EDMS 09/30 13:02 Order name: Magnesium EDMS 09/30 13:02 Order name: Magnesium EDMS 09/30 13:02 Order name: Magnesium EDMS 09/30 13:02 Order name: T4 Free EDMS 09/30 13:03 Order name: T4 Free EDLA 09/30 13:03 Order name: Thyroid Stimulating Hormone EDLA 09/30 13:03 Order name: Thyroid Stimulating Hormone EDLA 09/30 10:22 Order name: XRAY Chest (1 view); Complete Time: 10:57 rt 09/30 13:02 Order name: Echo with Doppler EDLA 09/30 10:22 Order name: EKG; Complete Time: 10:23 rt 09/30 10:22 Order name: Cardiac monitoring; Complete Time: 10:40 rt 09/30 10:22 Order name: EKG - Nurse/Tech; Complete Time: 10:36 rt 09/30 10:22 Order name: IV Saline Lock; Complete Time: 10:35 rt 09/30 10:22 Order name: Labs collected and sent; Complete Time: 10:35 rt 09/30 10:22 Order name: O2 Per Protocol; Complete Time: 10:35 rt 09/30 10:22 Order name: O2 Sat Monitoring; Complete Time: 10:35 rt EC:47 Rate is 125 beats/min. Rhythm is irregularly irregular, A fib with No ectopy, Rate rt related ST and T wave changes. Left axis deviation noted. QRS interval is normal. QT interval is normal. No Q waves. Administered Medications: 10:40 Drug: Levalbuterol Inhalation 1.25 mg Inhalation once Route: Inhalation; me1 12:42 Drug: Levalbuterol Inhalation 1.25 mg Inhalation once Route: Inhalation; me1 13:05 Follow up: Response: No adverse reaction; Wheezing diminished me1 12:42 Drug: MethylPrednisoLONE IVP 125 mg IVP once Route: IVP; Site: right antecubital; me1 13:05 Follow up: Response: No adverse reaction me1 13:10 Drug: NS 0.9% IV 1000 ml IV at 75 ml/hr Per protocol Route: IV; Rate: 75 ml/hr; Site: me1 right antecubital; 14:41 Follow up: IV Status: Infusion continued upon admission me1 13:19 Drug: Magnesium Sulfate IVPB 2 grams IVPB once over 2 hrs Route: IVPB; Infused Over: 2 me1 hrs; Site: right antecubital; 14:42 Follow up: IV Status: Infusion continued upon admission me1 Disposition Summary: 09/30/24 12:40 Hospitalization Ordered Notes: Hospitalization Status: Observation rt Provider: Roger Goldberg rt Location: Telemetry/MedSurg (observation) rt Condition: Fair rt Problem: new rt Symptoms: are unchanged rt Bed/Room Type: Standard rt Room Assignment: 225(09/30/24 14:03) kb3 Diagnosis - Dyspnea, unspecified rt - Atrial fibrillation with tachycardia and bradycardia rt Forms: - Medication Reconciliation Form rt - SBAR form rt - Leadership Thank You Letter rt Signatures: Dispatcher [employer] EDDean Ellis, MANAGEMENT AIDE-C MANAGEMENT AIDE-Cla1 Tiffanie Larsen, RN RN Radha Noble RN RN kb3 Nolan Velazquez MD MD rt Mickie Calderon, RN RN me1 Corrections: (The following items were deleted from the chart) 12:40 rt kb3
--- NOTE | 2024-09-30 12:41 | ER ---
Nurse's Notes [facility] Name: Oswaldo Chou Age: 73 yrs Sex: Male : 1950 Arrival Date: 09/30/2024 Time: 09:57 Bed 20 Private MD: Diagnosis: Dyspnea, unspecified;Atrial fibrillation with tachycardia and bradycardia Presentation: 09/30 10:13 Chief complaint: Sent from Dr. Colindres's office for HR50s. Pt reports SOB, malaise, sore hb throat, and body aches x 1-2 weeks. On 2LNC home O2. Coronavirus screen: Client presents with at least one sign or symptom that may indicate coronavirus-19. Provider contacted for isolation considerations. Ebola Screen: No symptoms or risks identified at this time. Initial Sepsis Screen: Does the patient meet any 2 criteria? No. Patient's initial sepsis screen is negative. Does the patient have a suspected source of infection? No. Patient's initial sepsis screen is negative. Risk Assessment: Do you want to hurt yourself or someone else? Patient reports no desire to harm self or others. Onset of symptoms was September 18, 2024. 10:13 Method Of Arrival: Ambulatory hb 10:13 Acuity: REINA 2 hb Historical: - Allergies: 10:15 adhesive tape; hb - PMHx: 10:15 Atrial fibrillation; hb - PSHx: 10:15 back surgery; stents to the DONN lower legs; hb - Immunization history:: Adult Immunizations up to date. - Infectious Disease History:: Denies. - Family history:: not pertinent. - Social history:: Smoking status: Patient/guardian denies using tobacco, but has a distant history of tobacco abuse. Screenin:42 [facility] ED Fall Risk Assessment (Adult) History of falling in the last 3 months, me1 including since admission No falls in past 3 months (0 pts) Confusion or Disorientation No (0 pts) Intoxicated or Sedated No (0 pts) Impaired Gait No (0 pts) Mobility Assist Device Used No (0 pt) Altered Elimination No (0 pt) Score/Fall Risk Level 0 - 2 = Low Risk Maintained a safe environment, Provided non-skid footwear, Hourly rounding (assess needs \T\ fall precautionary measures) done. Abuse screen: Denies threats or abuse. Nutritional screening: No deficits noted. Tuberculosis screening: No symptoms or risk factors identified. Assessment: 10:42 General: Appears ill, Behavior is calm, cooperative, appropriate for age, Reports Sent me1 from Dr. Colindres's office for HR50s. Pt reports SOB, malaise, sore throat, and body aches x 1-2 weeks. On 2LNC home O2. General: Reports fatigue for >3 days. Pain: Complains of pain in generalized Pain does not radiate. Pain currently is 6 out of 10 on a pain scale. Quality of pain is described as aching, Pain began gradually, 2-3 weeks ago Is. Neuro: Level of Consciousness is awake, alert, obeys commands, Oriented to person, place, time, situation, Appropriate for age. Cardiovascular: Patient's skin is warm and dry. Respiratory: Airway is patent Trachea Respiratory effort is even, unlabored, Respiratory pattern is regular, symmetrical. Respiratory: Reports shortness of breath. GI: No signs and/or symptoms were reported involving the gastrointestinal system. : No signs and/or symptoms were reported regarding the genitourinary system. EENT: Reports pain when swallowing. Derm: Skin is intact, is healthy with good turgor, Skin is pink, warm \T\ dry. Musculoskeletal: No signs and/or symptoms reported regarding the musculoskeletal system. Vital Signs: 10:13 BP 97 / 82; Pulse 134; Resp 28; Temp 97.8(TE); Pulse Ox 95% on 2 lpm NC; Weight 104.33 hb kg; Height 5 ft. 7 in. ; Pain /; 11:00 BP 118 / 90; Pulse 129; Resp 22; Pulse Ox 97% on 3 lpm NC; me1 12:00 BP 117 / 87; Pulse 122; Resp 20; Pulse Ox 93% on 3 lpm NC; me1 13:00 BP 104 / 82; Pulse 129; Resp 19; Pulse Ox 100% on 3 lpm NC; me1 13:59 BP 97 / 76; Pulse 112; Resp 24; Pulse Ox 96% on 3 lpm NC; me1 14:41 BP 101 / 71; Pulse 114; Resp 19; Pulse Ox 100% on 3 lpm NC; me1 10:13 Body Mass Index 36.02 (104.33 kg, 170.18 cm) hb 10:13 Pain Scale: Adult hb ED Course: 09:59 Patient arrived in ED. mr 10:03 Nolan Velazquez MD is Attending Physician. rt 10:15 Triage completed. hb 10:26 Mickie Calderon, INGA is Primary Nurse. me1 10:35 Initial lab(s) drawn, by me, sent to lab. Inserted saline lock: 22 gauge in right me1 antecubital area, using aseptic technique. 10:35 Basic Metabolic Panel Sent. me1 10:35 CBC with Diff Sent. me1 10:36 LFT's Sent. me1 10:36 Magnesium Sent. me1 10:36 NT PRO-BNP Sent. me1 10:36 Troponin HS Sent. me1 10:36 TSH Sent. me1 10:42 XRAY Chest (1 view) In Process Unspecified. EDMS 10:42 No provider procedures requiring assistance completed. Oxygen administration via nasal me1 cannula \T\ 3L/min. 10:42 Patient has correct armband on for positive identification. Bed in low position. Call me1 light in reach. Side rails up X2. Provided Education on: POC. Verbalized understanding.. Client placed on continuous cardiac and pulse oximetry monitoring. NIBP monitoring applied. residential monitor on. Pulse ox on. NIBP on. 12:40 Roger Goldberg MD is Hospitalizing Provider. rt 13:42 Arm band placed on Patient placed in an exam room. me1 13:59 Patient admitted, IV remains in place. me1 Administered Medications: 10:40 Drug: Levalbuterol Inhalation 1.25 mg Inhalation once Route: Inhalation; me1 12:42 Drug: Levalbuterol Inhalation 1.25 mg Inhalation once Route: Inhalation; me1 13:05 Follow up: Response: No adverse reaction; Wheezing diminished me1 12:42 Drug: MethylPrednisoLONE IVP 125 mg IVP once Route: IVP; Site: right antecubital; me1 13:05 Follow up: Response: No adverse reaction me1 13:10 Drug: NS 0.9% IV 1000 ml IV at 75 ml/hr Per protocol Route: IV; Rate: 75 ml/hr; Site: me1 right antecubital; 14:41 Follow up: IV Status: Infusion continued upon admission me1 13:19 Drug: Magnesium Sulfate IVPB 2 grams IVPB once over 2 hrs Route: IVPB; Infused Over: 2 me1 hrs; Site: right antecubital; 14:42 Follow up: IV Status: Infusion continued upon admission me1 Medication: 10:42 VIS not applicable for this client. me1 Outcome: 12:40 Decision to Hospitalize by Provider. rt 13:59 Admitted to Med/surg accompanied by tech, via stretcher, room 225, with chart, Report me1 called to faxed, receipt confirmed with Reyna 13:59 Condition: stable 13:59 Instructed on the need for admit, 15:09 Patient left the ED. me1 Signatures: Dispatcher [employer] EDMS LakeVanessa lombardo, Reg Reg mr Tiffanie Larsen, RN RN hb Nolan Velazquez MD MD rt Mickie Calderon RN RN me1 Corrections: (The following items were deleted from the chart) 10:26 10:13 Chief complaint: Sent from Dr. Colindres's office for HR50s. Pt reports SOB, malaise, me1 sore throat, and body aches x 1-2 weeks. On 2LNC home O2 hb 13:42 11:00 BP 118 / 90; Pulse 129bpm; Resp 22bpm; Pulse Ox 97%; me1 me1
[2024-09-30] MEDS ORDERED: ACETAMINOPHEN 325 MG TABLET PO PRN (12:57)
[2024-09-30] MEDS: IPRATROPIUM BROM 0.5MG/2.5ML NEB SCH (13:00)
[2024-09-30] MEDS: LEVALBUTEROL 1.25 MG/3 ML NEB NEB SCH (13:00)
[2024-09-30] MEDS ORDERED: HYDROCODONE/APAP 5/325 MG TAB PO PRN (13:01)
[2024-09-30] MEDS ORDERED: NA CHLORIDE 0.9% 1,000 ML ONE (13:06)
[2024-09-30] MEDS ORDERED: Magnesium Sulfate 2gm IVPB 2 G/50 ML BAG IV ONE (13:06)
[2024-09-30 13:44] LABS: Influenza A Ag Negative; Influenza B Ag Negative
[2024-09-30 13:45] LABS: SARS-CoV-2 Antigen Rapid Res Positive (Negative)
[2024-09-30] MEDS: NA CHLORIDE 0.9% 1,000 ML IV SCH (14:45)
[2024-09-30 15:33] VITALS: BMI 36.0
--- NOTE | 2024-09-30 16:47 | P.HP ---
Certification for Inpatient Patient admitted to: Inpatient With expected LOS: >2 Midnights Patient will require the following post-hospital care: None Practitioner: I am a practitioner with admitting privileges, knowledge of patient current condition, hospital course, and medical plan of care. Services: Services provided to patient in accordance with Admission requirements found in Title 42 Section 412.3 of the Code of Federal Regulations Patient History Date of Service: 09/30/24 History of Present Illness: 73-year-old male with history of atrial fibrillation on chronic anticoagulation, PAD, asthma, hypothyroidism presents to the emergency department with chief complaint of shortness of breath and irregular heart rate. He went to his PCP as he had been feeling unwell for the last week and a half and his heart rate was found to be low in the 30s to 50s, he was referred to the emergency department for further evaluation. Upon arrival to the emergency department patient was actually tachycardic in A- fib RVR with rates of 130s to 140s. His labs were significant for a normal white blood cell count bicarb of 33 glucose of 145 BNP of 1227 he had a testing positive for COVID chest x-ray showed mild linear atelectasis present in both lung bases. The lungs are otherwise grossly clear. Patient given nebulizer treatments in ED, still with expiratory wheezing and dy spnea we will also give IV steroids and IV mag which may help with respiratory status and A-fib. ED physician discussed case with cardiology who recommends monitoring on telemetry for now. Allergies adhesive tape Allergy (Verified 09/22/22 13:47) Hives/Rash Home Medications: Clopidogrel Bisulfate [Plavix*] 75 mg PO BEDTIME 90 Days #90 tab 08/16/22 Metoprolol Tartrate [Lopressor*] 25 mg PO [id number] 07/10/23 Aspirin [Aspirin EC 81 MG] 81 tab PO BEDTIME 12/08/23 Furosemide [Lasix] 40 mg PO DAILY 12/08/23 Levothyroxine [Synthroid] 50 mcg PO [id number] 12/08/23 Memantine HCl 5 mg PO DAILY 12/08/23 Prednisone [Sterapred Ds] 10 mg PO DAILY 6 Days #9 tab 12/08/23 - Past Medical/Surgical History Has patient received pneumonia vaccine in the past: Yes Diabetic: No -: Atrial fib -: Asthma -: PAD -: Hypothyroidism -: RLE stent -: back surgery Psychosocial/ Personal History: Patient lives at home with his - Social History Smoking Status: Unknown if ever smoked Alcohol use: No CD- Drugs: No Caffeine use: No Place of Residence: Home Review of Systems 10-point ROS is otherwise unremarkable General: Weakness, Malaise Respiratory: Cough, Shortness of Breath Physical Examination - Vital Signs Temperature: 97.8 F Blood Pressure: 101/71 Pulse: 114 Respirations: 19 - Physical Exam General: Alert, In no apparent distress, Oriented x3 HEENT: Atraumatic, PERRLA, EOMI Neck: Supple, 2+ carotid pulse no bruit, No LAD Respiratory: Diminished, Expiratory wheezes Cardiovascular: Normal S1 S2, Irregular heart rate/rhythm Gastrointestinal: Normal bowel sounds, No tenderness Musculoskeletal: No tenderness Integumentary: No rashes Neurological: Normal speech, Normal strength at 5/5 x4 extr, Normal affect Lymphatics: No axilla or inguinal lymphadenopathy - Studies Laboratory Data (last 24 hrs) 09/30/24 09/30/24 10:34 10:34 WBC 5.00 Hgb 15.4 Hct 47.3 Plt Count 171 Sodium 139 Potassium 4.0 BUN 8 Creatinine 0.96 Glucose 145 H Magnesium 1.9 Total Bilirubin 0.7 AST 27 ALT 25 Alkaline Phosphatase 80 Assessment and Plan - Plan Assessment: Atrial fibrillation with rapid ventricular response Asthma with exacerbation-on home O2 COVID-19 viral illness PAD Hypothyroidism Plan: Atrial fibrillation with rapid ventricular response Monitor on telemetry, cardiology consult Takes metoprolol succinate 25 mg once daily at home Patient and family report heart rate has been running low in the last week 30s to 50s Last took metoprolol on 09/29 Currently rate around 115, QTc within normal limits Asthma with exacerbation-on home O2 COVID-19 viral illness Continue scheduled nebs, p.o. steroids Supplemental oxygen as needed Pulmonology consult PAD Hypothyroidism Continue home medications DVT PPX: Lovenox Code status: Full Discharge Plan: Home Plan to discharge in: 48 Hours - Advance Directives Does patient have a Living Will: No Does patient have a Durable POA for Healthcare: No - Code Status/Comfort Care Code Status Assessed: Yes (Full code) Critical Care: No Time Spent Managing Pts Care (In Minutes): 65
[2024-09-30] MEDS: predniSONE 20 MG TAB PO SCH (20:24)
[2024-10-01 06:53] LABS: Absolute Lymphocytes (CBC) 0.6 K/uL (0.7-4.9); Absolute Monocytes 0.4 K/uL (0.1-1.3); Basophils % 0.2 % (0-1.3); Eosinophils % 0.1 % (0-4.4); Hematocrit 41.9 % (39.6-49.0); Hemoglobin 14.3 g/dL (13.6-17.9); Lymphocytes % 10.1 % (15.3-44.8); MCH 33.6 pg (27.0-35.0); MCV 98.7 fL (80-100); MPV 8.4 fL (7.6-11.3); Monocytes % 5.9 % (3.3-12.3); Neutrophils % 83.7 % (41.7-73.7); Nucleated Red Blood Cells % 0.4 % (0-0); Platelets 151 thou/uL (152-406); RBC Red Blood Cell Count 4.25 M/uL (4.33-5.43); Red Cell Distribution Width 14.9 % (12.1-15.2)
[2024-10-01 07:14] LABS: Anion Gap 6.6 mEq/L (5.0-15.0); Magnesium 2.2 mg/dL (1.6-2.4); Potassium 3.6 mEq/L (3.5-5.1); Thyroid Stimulating Hormone 0.378 uIU/mL (0.358-3.740)
[2024-10-01] MEDS: ASPIRIN EC 81 MG TAB PO SCH (08:26)
[2024-10-01] MEDS: ENOXAPARIN 40 MG/0.4 ML SQ SCH (08:27)
[2024-10-01] MEDS: CLOPIDOGREL 75 MG TABLET PO SCH (08:27)
[2024-10-01] MEDS: SOTALOL HCL 80 MG TAB PO SCH (09:56)
[2024-10-01] MEDS ORDERED: APIXABAN 5 MG TABLET PO SCH ×2 (10:00→21:00)
--- NOTE | 2024-10-01 13:28 | P.PN ---
Date of Service: 10/01/24 Subjective: Still with dyspnea, expiratory wheezing this morning States he is feeling a little better than yesterday ROS: 10 point ROS as noted above, otherwise negative Physical exam GEN: Alert, oriented, NAD HEENT: Normal conjunctiva, sclera anicteric CV: A-fib rate around 115, no edema Pulm: Nonlabored respirations on nasal cannula, expiratory wheezing, diminished breath sounds ABD: Soft, nontender, nondistended MSK: No joint tenderness Integumentary: No rashes Neuro: Normal speech, normal affect Vitals reviewed Assessment: Atrial fibrillation with rapid ventricular response Asthma with exacerbation-on home O2 COVID-19 viral illness PAD Hypothyroidism Plan: Atrial fibrillation with rapid ventricular response Monitor on telemetry, cardiology consult Takes metoprolol succinate 25 mg once daily at home Patient and family report heart rate has been running low in the last week 30s to 50s Last took metoprolol on 09/29 Currently rate around 115, QTc within normal limits Discussed with cardiology, started on sotalol 80 mg twice daily Repeat EKG after the third dose Asthma with exacerbation-on home O2 COVID-19 viral illness Continue scheduled nebs, p.o. steroids Supplemental oxygen as needed Pulmonology consult PAD Hypothyroidism Continue home medications DVT PPX: Lovenox Code status: Full Discharge Plan: Home Plan to discharge in: 48 Hours Time Spent Managing Pts Care (In Minutes): 35
[2024-10-01] MEDS: BENZONATATE 100 MG CAP PO PRN (15:08)
[2024-10-01] MEDS: NA CHLORIDE 0.9% 1,000 ML IV SCH (15:29)
[2024-10-01] MEDS: SIMETHICONE 125 MG TAB PO PRN (19:49)
[2024-10-01] MEDS: APIXABAN 5 MG TABLET PO SCH (19:49)
[2024-10-02] MEDS: MEMANTINE HCL 10 MG TABLET PO SCH (08:01)
[2024-10-02] MEDS: GUAIFENESIN 600 MG SA TAB PO SCH (08:42)
[2024-10-02] MEDS: DULERA 200/5 (MOMETASONE/FORMOTEROL) INHALER IH SCH (08:43)
[2024-10-02 09:09] LABS: Absolute Lymphocytes (CBC) 1.2 K/uL (0.7-4.9); Absolute Monocytes 0.5 K/uL (0.1-1.3); Absolute Neutrophil 7.9 K/uL (1.8-8.0); Basophils % 0.3 % (0-1.3); Eosinophils % 0.1 % (0-4.4); Hematocrit 43.4 % (39.6-49.0); Hemoglobin 14.6 g/dL (13.6-17.9); Lymphocytes % 12.8 % (15.3-44.8); MCH 33.3 pg (27.0-35.0); MCHC 33.7 g/dL (32.0-36.0); MCV 98.9 fL (80-100); MPV 8.8 fL (7.6-11.3); Monocytes % 4.9 % (3.3-12.3); Neutrophils % 81.9 % (41.7-73.7); Nucleated Red Blood Cells % 0.1 % (0-0); Platelets 191 thou/uL (152-406); RBC Red Blood Cell Count 4.39 M/uL (4.33-5.43); Red Cell Distribution Width 15.1 % (12.1-15.2)
[2024-10-02 09:19] LABS: Anion Gap 8.3 mEq/L (5.0-15.0); Magnesium 2.1 mg/dL (1.6-2.4); Potassium 4.3 mEq/L (3.5-5.1)
--- NOTE | 2024-10-02 09:43 | P.PN ---
Date of Service: 10/02/24 Subjective: Still with dyspnea some mild improvement no acute events overnight ROS: 10 point ROS as noted above, otherwise negative Physical exam GEN: Alert, oriented, NAD HEENT: Normal conjunctiva, sclera anicteric CV: A-fib rate around 100, no edema Pulm: Nonlabored respirations on nasal cannula, expiratory wheezing, diminished breath sounds ABD: Soft, nontender, nondistended MSK: No joint tenderness Integumentary: No rashes Neuro: Normal speech, normal affect Vitals reviewed Assessment: Atrial fibrillation with rapid ventricular response Asthma with exacerbation-on home O2 COVID-19 viral illness PAD Hypothyroidism Plan: Atrial fibrillation with rapid ventricular response Monitor on telemetry, cardiology consult Takes metoprolol succinate 25 mg once daily at home-holding Patient and family report heart rate has been running low in the last week 30s to 50s Last took metoprolol on 09/29 Currently rate around 115, QTc within normal limits Discussed with cardiology, started on sotalol 80 mg twice daily EKG repeated after third dose, QTc within normal limits Asthma with exacerbation-on home O2 COVID-19 viral illness Continue scheduled nebs, p.o. steroids Supplemental oxygen as needed Pulmonology consult Started dulera 3/16 AM PAD Hypothyroidism Continue home medications DVT PPX: Lovenox Code status: Full Discharge Plan: Home Plan to discharge in: 48 Hours Time Spent Managing Pts Care (In Minutes): 35
[2024-10-02] MEDS: NA CHLORIDE 0.9% 1,000 ML IV SCH (11:30)
--- NOTE | 2024-10-02 15:13 | P.CNS ---
Date of Consult: 10/02/24 Chief Complaint: AF History of Present Illness: Patient with PMH of atrial fibrillation, presented with worsening SOB, cough and chills, found to be positive for COVID, also mention that they have been checking his HR and it is low in the 30-50s, denies chest pain, no palpitations, no syncope. Allergies adhesive tape Allergy (Verified 09/22/22 13:47) Hives/Rash Home medications list reviewed: Yes Home Medications: Clopidogrel Bisulfate [Plavix*] 75 mg PO BEDTIME 90 Days #90 tab 08/16/22 Metoprolol Tartrate [Lopressor*] 25 mg PO [id number] 07/10/23 Aspirin [Aspirin EC 81 MG] 81 tab PO BEDTIME 12/08/23 Furosemide [Lasix] 40 mg PO DAILY 12/08/23 Levothyroxine [Synthroid] 50 mcg PO [id number] 12/08/23 Memantine HCl 5 mg PO DAILY 12/08/23 Prednisone [Sterapred Ds] 10 mg PO DAILY 6 Days #9 tab 12/08/23 - Past Medical/Surgical History Diabetic: No -: Atrial fib -: Asthma -: PAD -: Hypothyroidism -: RLE stent -: back surgery Psychosocial/ Personal History: Patient lives at home with his - Social History Smoking Status: Former smoker Alcohol use: No CD- Drugs: No Caffeine use: No Place of Residence: Home Review of Systems 10-point ROS is otherwise unremarkable Physical Examination Temp Pulse Resp BP Pulse Ox 97.9 F 96 H 20 94/66 100 10/02/24 12:00 10/02/24 12:00 10/02/24 12:00 10/02/24 12:00 10/02/24 12:00 General: Alert, In no apparent distress HEENT: Atraumatic, PERRLA, Mucous membr. moist/pink, EOMI, Sclerae nonicteric Neck: Supple, 2+ carotid pulse no bruit, No LAD, Without JVD or thyroid abnormality Respiratory: Clear to auscultation bilaterally, Normal air movement Cardiovascular: Irregular heart rate/rhythm Gastrointestinal: Normal bowel sounds, No tenderness Musculoskeletal: No tenderness Integumentary: No rashes Neurological: Normal gait, Normal speech, Normal tone, Normal affect Lymphatics: No axilla or inguinal lymphadenopathy - Problems (1) Afib Current Visit: No Status: Chronic Plan: patient with known diagnosis of AF started SOTALOL 80 mg po BID (EKG after 3rd dose) continue Eliquis 5 mg po BID stop ASA continue Plavix 75 mg daily Qualifiers: Atrial fibrillation type: unspecified chronic Qualified Code(s): I48.20 - Chronic atrial fibrillation, unspecified; I48.2 - Chronic atrial fibrillation
[2024-10-03 06:03] LABS: Magnesium 2.1 mg/dL (1.6-2.4)
[2024-10-03 06:09] LABS: Absolute Lymphocytes (CBC) 0.6 K/uL (0.7-4.9); Absolute Monocytes 0.2 K/uL (0.1-1.3); Absolute Neutrophil 7.5 K/uL (1.8-8.0); Basophils % 0.2 % (0-1.3); Hematocrit 43.6 % (39.6-49.0); Hemoglobin 14.5 g/dL (13.6-17.9); Lymphocytes % 6.8 % (15.3-44.8); MCH 33.1 pg (27.0-35.0); MCHC 33.3 g/dL (32.0-36.0); MCV 99.2 fL (80-100); Monocytes % 2.8 % (3.3-12.3); Neutrophils % 90.2 % (41.7-73.7); Nucleated Red Blood Cells % 0.1 % (0-0); Platelets 181 thou/uL (152-406); RBC Red Blood Cell Count 4.39 M/uL (4.33-5.43); Red Cell Distribution Width 14.8 % (12.1-15.2)
--- NOTE | 2024-10-03 06:48 | ECHO ---
HEIGHT: 5 ft 7 in WEIGHT: 230 lb 0 oz DATE OF STUDY: 09/30/[address]: Dean Phelps NP 2-DIMENSIONAL: YES M.MODE: YES DOPPLER: YES COLOR FLOW: YES TDS: PORTABLE: DEFINITY: BUBBLE STUDY: DIAGNOSIS: ATRIAL FIBRILLATION/ BRADYCARDIA CARDIAC HISTORY: CATHERIZATION: NO SURGERY: NO PROSTHETIC VALVE: NO PACEMAKER: NO MEASUREMENTS (cm) DIASTOLIC (NORMALS) SYSTOLIC (NORMALS) IVSd 1.0 (0.6-1.2) LA Diam 5.5 (1.9-4.0) LVEF 30-35% LVIDd 4.3 (3.5-5.7) LVIDs 3.7 (2.0-3.5) %FS 14% LVPWd 1.2 (0.6-1.2) Ao Diam 3.5 (2.0-3.7) 2 DIMENSIONAL ASSESSMENT: RIGHT ATRIUM: NORMAL LEFT ATRIUM: MODERATELY DILATED RIGHT VENTRICLE: NORMAL LEFT VENTRICLE: NORMAL TRICUSPID VALVE: TRACE TRICUSPID REGURGITATION MITRAL VALVE: TRACE MITRAL REGURGITATION PULMONIC VALVE: NORMAL AORTIC VALVE: NORMAL PERICARDIAL EFFUSION: NONE AORTIC ROOT: NORMAL LEFT VENTRICULAR WALL MOTION: SEVERE GLOBAL HYPOKINESIS DOPPLER/COLOR FLOW: UNABLE TO ESTIMATE DUE TO ARRHYTHMIA COMMENTS: 1. SEVERELY REDUCED LEFT VENTRICULAR SYSTOLIC DYSFUNCTION, EJECTION FRACTION 30-35%, SEVERE GLOBAL HYPOKINESIS 2. MODERATELY DILATED LEFT ATRIUM TECHNOLOGIST: GEOFFREY YOST
[2024-10-03 08:37] LABS: Blood Morphology Comment NOT SEEN (NOT SEEN); Platelet Estimate ADEQ; White Blood Cell Scan OK (OK)
[2024-10-03] MEDS: NA CHLORIDE 0.9% 250 ML IV ONE (08:49)
[2024-10-03] MEDS: NA CHLORIDE 0.9% 500 ML IV ONE (10:13)
--- NOTE | 2024-10-03 10:43 | P.PN ---
Date of Service: 10/03/24 Subjective: Feels like his breathing has improved some since yesterday No acute events overnight Blood pressure soft this morning ROS: 10 point ROS as noted above, otherwise negative Physical exam GEN: Alert, oriented, NAD HEENT: Normal conjunctiva, sclera anicteric CV: A-fib rate around 100, no edema Pulm: Nonlabored respirations on nasal cannula, expiratory wheezing, diminished breath sounds ABD: Soft, nontender, nondistended MSK: No joint tenderness Integumentary: No rashes Neuro: Normal speech, normal affect Vitals reviewed Assessment: Atrial fibrillation with rapid ventricular response Asthma with exacerbation-on home O2 COVID-19 viral illness PAD Hypothyroidism Plan: Atrial fibrillation with rapid ventricular response Monitor on telemetry, cardiology consult Takes metoprolol succinate 25 mg once daily at home-holding Patient and family report heart rate has been running low in the last week 30s to 50s Last took metoprolol on 09/29 Currently rate around 100, QTc within normal limits Discussed with cardiology, started on sotalol 80 mg twice daily EKG repeated after third dose, QTc within normal limits Also started on Eliquis, continue Eliquis and Plavix, aspirin discontinued Will need prescription for sotalol, Eliquis at discharge when ready Had some soft blood pressures this morning-possible insensible loss from tachypnea/asthma exacerbation Will trial IV fluid bolus/reassess Asthma with exacerbation-on home O2 COVID-19 viral illness Continue scheduled nebs, p.o. steroids Supplemental oxygen as needed Pulmonology consult Started dulera 3/16 AM Slowly improving PAD Hypothyroidism Continue home medications DVT PPX: Lovenox Code status: Full Discharge Plan: Home Plan to discharge in: 48 Hours Time Spent Managing Pts Care (In Minutes): 35
--- NOTE | 2024-10-03 10:57 | RAD REPORT ---
EXAMINATION: ONE VIEW CHEST XR CLINICAL INDICATION: Male, 73 years old.,dyspnea TECHNIQUE: Frontal chest projection is submitted. Examination is limited by patient positioning and t echnique. COMPARISON: 09/30/2024 FINDINGS: The lungs are well inflated and clear. No pneumothorax or sizable effusion. The heart is normal in s ize. Mediastinal contours are unremarkable. IMPRESSION: No acute intrathoracic abnormalities.
--- NOTE | 2024-10-03 13:00 | P.PN ---
Subjective Date of Service: 10/03/24 Chief Complaint: AF Subjective: No new changes, No C/O voiced, Tolerating diet, Ambulating, Improving Review of Systems 10-point ROS is otherwise unremarkable Physical Examination - Vital Signs Temperature: 98.6 F Blood Pressure: 95/70 Pulse: 110 Respirations: 18 Pulse Ox (%): 100 - Physical Exam General: Alert, In no apparent distress HEENT: Atraumatic, PERRLA, EOMI Neck: Supple, JVD not distended Respiratory: Clear to auscultation bilaterally, Normal air movement Cardiovascular: Irregular heart rate/rhythm Gastrointestinal: Normal bowel sounds, No tenderness Musculoskeletal: No tenderness Integumentary: No rashes Neurological: Normal speech, Normal tone, Normal affect Lymphatics: No axilla or inguinal lymphadenopathy - Studies Medications List Reviewed: Yes Assessment And Plan - Current Problems (Diagnosis) (1) Afib Current Visit: No Status: Chronic Plan: patient with known diagnosis of AF started SOTALOL 80 mg po BID (EKG normal QTc) continue Eliquis 5 mg po BID continue Plavix 75 mg daily NPO after midnight for URVASHI DCCV in am Qualifiers: Atrial fibrillation type: unspecified chronic Qualified Code(s): I48.20 - Chronic atrial fibrillation, unspecified; I48.2 - Chronic atrial fibrillation
[2024-10-04 08:20] LABS: Absolute Lymphocytes (CBC) 0.6 K/uL (0.7-4.9); Absolute Monocytes 0.3 K/uL (0.1-1.3); Absolute Neutrophil 6.5 K/uL (1.8-8.0); Basophils % 0.2 % (0-1.3); Eosinophils % 0.1 % (0-4.4); Hematocrit 43.1 % (39.6-49.0); Hemoglobin 14.4 g/dL (13.6-17.9); Lymphocytes % 8.1 % (15.3-44.8); MCH 33.4 pg (27.0-35.0); MCHC 33.5 g/dL (32.0-36.0); MCV 99.5 fL (80-100); MPV 8.6 fL (7.6-11.3); Monocytes % 4.3 % (3.3-12.3); Neutrophils % 87.3 % (41.7-73.7); Platelets 196 thou/uL (152-406); RBC Red Blood Cell Count 4.33 M/uL (4.33-5.43); Red Cell Distribution Width 14.7 % (12.1-15.2)
[2024-10-04 10:11] LABS: Blood Morphology Comment NOT SEEN (NOT SEEN); Platelet Estimate ADEQ; White Blood Cell Scan OK (OK)
[2024-10-04] MEDS ORDERED: propofoL 200 MG/20 ML VIAL IV ONE (10:44)
[2024-10-04] MEDS: NA CHLORIDE 0.9% 500 ML ONE (11:10)
--- NOTE | 2024-10-04 11:53 | P.PN ---
Subjective Date of Service: 10/04/24 Chief Complaint: AF Subjective: No new changes, No C/O voiced, Tolerating diet, Ambulating, Improving Review of Systems 10-point ROS is otherwise unremarkable Physical Examination - Vital Signs Temperature: 97.4 F Blood Pressure: 88/59 Pulse: 66 Respirations: 20 Pulse Ox (%): 97 - Physical Exam General: Alert, In no apparent distress HEENT: Atraumatic, PERRLA, EOMI Neck: Supple, JVD not distended Respiratory: Clear to auscultation bilaterally, Normal air movement Cardiovascular: Regular rate/rhythm, Normal S1 S2 Gastrointestinal: Normal bowel sounds, No tenderness Musculoskeletal: No tenderness Integumentary: No rashes Neurological: Normal speech, Normal tone, Normal affect Lymphatics: No axilla or inguinal lymphadenopathy - Studies Medications List Reviewed: Yes Assessment And Plan - Current Problems (Diagnosis) (1) Afib Current Visit: No Status: Chronic Plan: patient with known diagnosis of AF, patient is s/p URVASHI DCCV today continue SOTALOL 80 mg po BID (EKG normal QTc) continue Eliquis 5 mg po BID continue Plavix 75 mg daily Qualifiers: Atrial fibrillation type: unspecified chronic Qualified Code(s): I48.20 - Chronic atrial fibrillation, unspecified; I48.2 - Chronic atrial fibrillation (2) Acute on chronic diastolic heart failure Current Visit: Yes Status: Acute Plan: patient work of breathing is harder, will initiate dieresis Lasix 40 mg IV BID Monitor input and output and electrolytes.
--- NOTE | 2024-10-04 13:46 | TEE ---
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 NORMAL LEFT ATRIAL APPENDAGE, NO THROMBUS TECHNOLOGIST: GEOFFREY YOST
--- NOTE | 2024-10-04 16:09 | P.PN ---
Date of Service: 10/04/24 Subjective: BP remains soft Successful cardioversion, will continue with Sotalol ROS: 10 point ROS as noted above, otherwise negative Physical exam GEN: Alert and oriented x3, NAD HEENT: Normal conjunctiva, sclera anicteric CV: A-fib rate mild tachycardia, no edema Pulm: on 3 nasal cannula, normal air movement ABD: Soft on palpation MSK: No joint tenderness Integumentary: No rashes Neuro: Normal speech, normal affect Vitals reviewed Assessment: Atrial fibrillation with rapid ventricular response Asthma with exacerbation-on home O2 COVID-19 viral illness PAD Hypothyroidism Plan: Atrial fibrillation with rapid ventricular response Monitor on telemetry, cardiology consult Takes metoprolol succinate 25 mg once daily at home-holding Patient and family report heart rate has been running low in the last week 30s to 50s Last took metoprolol on 09/29 Currently rate around 100, QTc within normal limits Discussed with cardiology, started on sotalol 80 mg twice daily EKG repeated after third dose, QTc within normal limits Also started on Eliquis, continue Eliquis and Plavix, aspirin discontinued Will need prescription for sotalol, Eliquis at discharge when ready Had some soft blood pressures this morning-possible insensible loss from tachypnea/asthma exacerbation Will trial IV fluid bolus/reassess Asthma with exacerbation-on home O2 COVID-19 viral illness Continue scheduled nebs, p.o. steroids Supplemental oxygen as needed Pulmonology consult Started dulera 3/16 AM Slowly improving PAD Hypothyroidism Continue home medications Hospital Interval course 10/04/24 -Cardioversion successful 10/04 -continue sotalol -EKG showing normal QT -refusing labs DVT PPX: Lovenox Code status: Full Discharge Plan: Home Plan to discharge in: 48 Hours
[2024-10-04] MEDS: FUROSEMIDE 40 MG/4 ML VIAL IV SCH (17:16)
--- NOTE | 2024-10-04 21:03 | OP ---
Date of Procedure: 10/04/2024 Surgeon: Ulices Garner Procedure Performed: Synchronized transesophageal echocardiogram cardioversion. Indication For Procedure: Atrial fibrillation. Complications: None. Estimated Blood Loss: None. Sedation: Done by Anesthesia team. Description Of Procedure: After risks, and benefits, and alternatives were explained to the patient, patient agreed to proceed with procedure and signed informed consent. The patient was brought back to the OR. Time-out was performed. Sedation was administered. URVASHI probe was inserted, images were obtained, and URVASHI probe out, and synchronized cardioversion was done with 250 joules. The patient co nverted back into sinus rhythm. The patient was moved back to Recovery in stable condition. Assessment And Plan: Atrial fibrillation, status post successful transesophageal echocardiogram card ioversion. Plan is to continue sotalol and continue Eliquis. RICKY/BERT Voice ID: [id number] Report ID: [id number]
[2024-10-05 06:41] LABS: Magnesium 2.4 mg/dL (1.6-2.4)
[2024-10-05 08:50] VITALS: O2SAT 100
--- NOTE | 2024-10-05 10:45 | P.DS ---
Admission Date: 09/30/24 Discharge Date: 10/05/24 Disposition: ROUTINE DISCHARGE Discharge Condition: GOOD Reason for Admission: AF Brief History of Present Illness: Diagnosis Atrial fibrillation with rapid ventricular response Asthma with exacerbation-on home O2 COVID-19 viral illness PAD Hypothyroidism HPI 09/30/2024 73-year-old male with history of atrial fibrillation on chronic anticoagulation, PAD, asthma, hypothyroidism presents to the emergency department with chief complaint of shortness of breath and irregular heart rate. He went to his PCP as he had been feeling unwell for the last week and a half and his heart rate was found to be low in the 30s to 50s, he was referred to the emergency department for further evaluation. Upon arrival to the emergency department patient was actually tachycardic in A- fib RVR with rates of 130s to 140s. His labs were significant for a normal white blood cell count bicarb of 33 glucose of 145 BNP of 1227 he had a testing positive for COVID chest x-ray showed mild linear atelectasis present in both lung bases. The lungs are otherwise grossly clear. Patient given nebulizer treatments in ED, still with expiratory wheezing and dyspnea we will also give IV steroids and IV mag which may help with respiratory status and A-fib. ED physician discussed case with cardiology who recommends monitoring on telemetry for now. Hospital Course: Oswaldo was admitted and treated for the following diagnoses. Atrial fibrillation with rapid ventricular response Monitored on telemetry cardiology consulted and need to follow up at discharge Takes metoprolol succinate 25 mg once daily at home-holding Patient and family report heart rate has been running low in the last week 30s to 50s Started on sotalol 80 mg twice daily per cardiology Last took metoprolol on 09/29 Currently rate around 100, QTc within normal limits EKG repeated after third dose, QTc within normal limits Also started on Eliquis, continue Eliquis and Plavix at discharge, aspirin discontinued Asthma with exacerbation-on home O2 COVID-19 viral illness Continued scheduled nebs, p.o. steroids Supplemental oxygen, [facility] Pulmonology follow up outpatient Started dulera 3/16 AM PAD Hypothyroidism Continue home medications On 10/05/2024, Oswaldo was seen on morning rounds and deemed hemodynamically stable, Dr. Garner has evaluated and cleared him for discharge with follow-up appointment in 1 week. Sotalol, Dulera, Eliquis, Mucinex, Plavix, prednisone, Tessalon Perles have been prescribed. Physical exam GEN: AAOx3, NAD HEENT: Normal conjunctiva, sclera anicteric CV: A-fib heart rate 66, no edema Pulm: on 3 nasal cannula, normal air movement ABD: Soft on palpation MSK: No joint tenderness Integumentary: No rashes Neuro: Normal speech, normal affect Vital Signs/Physical Exam: Temp Pulse Resp BP Pulse Ox 97.8 F 60 18 94/58 L 95 10/05/24 08:00 10/05/24 08:00 10/05/24 08:00 10/05/24 09:00 10/05/24 08:00 Laboratory Data at Discharge: WBC 7.50 thou/uL (4.3-10.9) 10/04/24 08:00 Hgb 14.4 g/dL (13.6-17.9) 10/04/24 08:00 Hct 43.1 % (39.6-49.0) 10/04/24 08:00 Plt Count 196 thou/uL (152-406) 10/04/24 08:00 Sodium 137 mEq/L (136-145) 10/05/24 06:02 Potassium 4.0 mEq/L (3.5-5.1) 10/05/24 06:02 BUN 11 mg/dL (7-18) 10/05/24 06:02 Creatinine 0.52 mg/dL (0.70-1.30) L 10/05/24 06:02 Glucose 137 mg/dL (74-106) H 10/05/24 06:02 Magnesium 2.4 mg/dL (1.6-2.4) 10/05/24 06:02 Total Bilirubin 0.7 mg/dL (0.2-1.0) 09/30/24 10:34 AST 27 U/L (15-37) 09/30/24 10:34 ALT 25 U/L (16-61) 09/30/24 10:34 Alkaline Phosphatase 80 U/L (45-117) 09/30/24 10:34 Home Medications: Metoprolol Tartrate [Lopressor*] 25 mg PO [id number] 07/10/23 Aspirin [Aspirin EC 81 MG] 81 tab PO BEDTIME 12/08/23 Levothyroxine [Synthroid*] 50 mcg PO [id number] 12/08/23 Memantine HCl 5 mg PO DAILY 12/08/23 Apixaban [Eliquis] 5 mg PO BID 30 Days #60 tab 10/05/24 Benzonatate [Tessalon Perle*] 100 mg PO TID PRN 5 Days #15 cap 10/05/24 Clopidogrel Bisulfate [Plavix*] 75 mg PO DAILY 30 Days #30 tab 10/05/24 Furosemide [Lasix] 40 mg PO DAILY 30 Days #30 tab 10/05/24 Guaifenesin [Mucinex] 600 mg PO BID 15 Days #30 tab 10/05/24 Mometasone/Formoterol [Dulera 200 Mcg/5 Mcg Inhaler] 2 puff IH BID 30 Days #1 inhaler 10/05/24 Sotalol HCl [Betapace*] 80 mg PO BID 6AM 6PM 30 Days #60 tab 10/05/24 predniSONE [Prednisone*] 20 mg PO BID 5 Days #10 tab 10/05/24 New Medications: Sotalol HCl [Betapace*] 80 mg PO BID 6AM 6PM 30 Days #60 tab Mometasone/Formoterol [Dulera 200 Mcg/5 Mcg Inhaler] 2 puff IH BID 30 Days #1 inhaler Apixaban [Eliquis] 5 mg PO BID 30 Days #60 tab Furosemide [Lasix] 40 mg PO DAILY 30 Days #30 tab Guaifenesin [Mucinex] 600 mg PO BID 15 Days #30 tab Clopidogrel Bisulfate [Plavix*] 75 mg PO DAILY 30 Days #30 tab predniSONE [Prednisone*] 20 mg PO BID 5 Days #10 tab Benzonatate [Tessalon Perle*] 100 mg PO TID PRN 5 Days #15 cap PRN Reason: Cough Physician Discharge Instructions: 1. Please call and schedule a follow-up appointment with your PCP in 3-5 days - Please follow-up with your PCP for medication refills/adjustments 2. Please call and schedule a follow-up appointment with Dr. Garner in one week -Continue Eliquis, sotalol, and plavix, Dr. Cheng will give further recommen dations at the follow-up appointment 3. Continue heart healthy diet 4. activity restrictions , fall precaution 5. Return to the ED if symptoms worsen New medications Sotalol 80 mg twice daily Dulera inhaler 2 puffs twice daily Eliquis 5 mg twice daily Mucinex 600 mg twice daily as needed for cough Plavix 75 mg daily Prednisone 20 mg twice daily x 10 days then restart 10 mg daily Lasix 40 mg daily x 30 days Potassium 10 mEq daily x 30 days Diet: AHA Activity: Fall precautions Followup: Ulices Garner MD [ACTIVE - CAN ADMIT] - 1 Week EMILIANO BOBBY MD [Primary Care Provider] - 1 Week
--- NOTE | 2024-10-05 11:54 | P.PN ---
Subjective Date of Service: 10/05/24 Chief Complaint: AF Subjective: No new changes, No C/O voiced, Tolerating diet, Ambulating, Improving Review of Systems 10-point ROS is otherwise unremarkable Physical Examination - Vital Signs Temperature: 97.8 F Blood Pressure: 94/58 Pulse: 60 Respirations: 18 Pulse Ox (%): 95 - Physical Exam General: Alert, In no apparent distress HEENT: Atraumatic, PERRLA, EOMI Neck: Supple, JVD not distended Respiratory: Clear to auscultation bilaterally, Normal air movement Cardiovascular: Regular rate/rhythm, Normal S1 S2 Gastrointestinal: Normal bowel sounds, No tenderness Musculoskeletal: No tenderness Integumentary: No rashes Neurological: Normal speech, Normal tone, Normal affect Lymphatics: No axilla or inguinal lymphadenopathy - Studies Medications List Reviewed: Yes Assessment And Plan - Current Problems (Diagnosis) (1) Afib Current Visit: No Status: Chronic Plan: patient with known diagnosis of AF, patient is s/p URVASHI DCCV, tele shows sinus rhythm continue SOTALOL 80 mg po BID (EKG normal QTc) continue Eliquis 5 mg po BID continue Plavix 75 mg daily Qualifiers: Atrial fibrillation type: unspecified chronic Qualified Code(s): I48.20 - Chronic atrial fibrillation, unspecified; I48.2 - Chronic atrial fibrillation (2) Acute on chronic diastolic heart failure Current Visit: Yes Status: Acute Plan: switch lasix to 40 mg daily KCL 10 MEq daily can not start goal directed medical therapy due to low BP Monitor input and output and electrolytes.
[2024-10-05 12:15] VITALS: BP 90/54; TEMP 98.2
--- NOTE | 2024-10-05 12:25 | EKG ---
Test Date: 2024-10-05 Test Time: 09:23:50 Personnel Manager: MAY MEASUREMENT RESULTS: Intervals: Rate: 62 RI: 178 QRSD: 94 QT: 462 QTc: 468 [place]: P: 51 RI: 178 QRS: -79 T: 10 INTERPRETIVE STATEMENTS: Normal sinus rhythm Left axis deviation Low voltage QRS Inferior infarct, age undetermined Abnormal ECG Compared to ECG 10/04/2024 10:03:22 Sinus bradycardia no longer present Myocardial infarct finding still present Electronically Signed On 10-05-24 12:24:38 CDT by Ulices Garner
--- NOTE | 2024-10-05 12:31 | EKG ---
Test Date: 2024-10-04 Test Time: 10:03:22 Regional Facilities Manager: MAY MEASUREMENT RESULTS: Intervals: Rate: 59 [place]: 180 QRSD: 94 QT: 422 QTc: 417 [place]: P: 61 [place]: 180 QRS: -78 T: 34 INTERPRETIVE STATEMENTS: Sinus bradycardia Left axis deviation Low voltage QRS Inferior infarct, age undetermined Abnormal ECG Compared to ECG 10/02/2024 04:48:26 Left-axis deviation now present Low QRS voltage now present Myocardial infarct finding now present Atrial fibrillation no longer present Ventricular premature complex(es) no longer present Right superior axis no longer present ST (T wave) deviation no longer present Electronically Signed On 10-05-24 12:26:06 CDT by Ulices Garner
--- NOTE | 2024-10-05 12:42 | EKG ---
Test Date: 2024-10-02 Test Time: 04:48:26 Brine Mixer Operator: VANI MEASUREMENT RESULTS: Intervals: Rate: 109 [place]: QRSD: 96 QT: 294 QTc: 395 [place]: P: HI: QRS: 266 T: 33 INTERPRETIVE STATEMENTS: Atrial fibrillation with rapid ventricular response with premature ventricular or aberrantly conducted complexes Right superior axis deviation Pulmonary disease pattern Nonspecific ST and T wave abnormality, probably digitalis effect Abnormal ECG Compared to ECG 09/30/2024 10:32:53 Ventricular premature complex(es) now present Right superior axis now present ST (T wave) deviation still present Electronically Signed On 10-05-24 12:30:33 CDT by Ulices Garner
--- NOTE | 2024-10-05 12:53 | EKG ---
Test Date: 2024-09-30 Test Time: 10:32:53 Set Off Press Operator: TOSHA MEASUREMENT RESULTS: Intervals: Rate: 125 [place]: QRSD: 96 QT: 278 QTc: 401 [place]: P: [place]: QRS: 263 T: 24 INTERPRETIVE STATEMENTS: Atrial fibrillation Nonspecific ST and T wave abnormality, probably digitalis effect Abnormal ECG Compared to ECG 12/07/2023 13:37:44 Ventricular premature complex(es) no longer present Right ventricular hypertrophy no longer present Prolonged QT interval no longer present ST (T wave) deviation still present Electronically Signed On 10-05-24 12:34:36 CDT by Ulices Garner
== END 2024-10-05 14:38 | disposition home or self-care (01) | DRG 308 ==
LOC: ER 09:57 → 2ND 15:05
PROVIDERS: ADMIT Hospitalist; ATTEND Internal Medicine
PROC: B24BZZ4 Ultrasonography of Heart with Aorta, Transesophageal (ICD-10-PCS; principal; 2024-10-04)
PROC: 5A2204Z Restoration of Cardiac Rhythm, Single (ICD-10-PCS; 2024-10-04)
DX: I48.20 Chronic atrial fibrillation, unspecified (principal); I50.33 Acute on chronic diastolic (congestive) heart failure; U07.1 COVID-19; J45.901 Unspecified asthma with (acute) exacerbation; E03.9 Hypothyroidism, unspecified; I73.9 Peripheral vascular disease, unspecified; R00.1 Bradycardia, unspecified; R00.0 Tachycardia, unspecified; Z99.81 Dependence on supplemental oxygen; Z79.01 Long term (current) use of anticoagulants; Z79.52 Long term (current) use of systemic steroids; Z79.02 Long term (current) use of antithrombotics/antiplatelets; Z79.890 Hormone replacement therapy; Z79.899 Other long term (current) drug therapy; Z87.891 Personal history of nicotine dependence; Z91.048 Other nonmedicinal substance allergy status
CPT/HCPCS: 01922; 36415; 71045; 80048; 80076; 83735; 83880; 84439; 84443; 84484; 85025; 87428; 92960; 93005; 93306; 93312; 94640; 94760; 96365; 96375; 97116; 97161; 97530; 99285; J1650; J1940; J2704; J2919; J3475; J3535; J7030; J7040; J7050; J7512; J7614; J7644

== ENCOUNTER 2024-10-07 18:06 | Inpatient (IN) | payer OTHER ==
[2024-10-07 19:15] LABS: Absolute Basophils 0.1 K/uL (0-0.5); Absolute Eosinophils 0.3 K/uL (0-0.5); Absolute Lymphocytes (CBC) 1.4 K/uL (0.7-4.9); Absolute Monocytes 0.8 K/uL (0.1-1.3); Absolute Neutrophil 10.6 K/uL (1.8-8.0); Basophils % 0.7 % (0-1.3); Eosinophils % 2.2 % (0-4.4); Hematocrit 57.8 % (39.6-49.0); Hemoglobin 18.9 g/dL (13.6-17.9); Lymphocytes % 10.7 % (15.3-44.8); MCH 32.7 pg (27.0-35.0); MCHC 32.8 g/dL (32.0-36.0); MCV 99.9 fL (80-100); MPV 8.3 fL (7.6-11.3); Neutrophils % 80.4 % (41.7-73.7); Nucleated Red Blood Cells % 0.1 % (0-0); Platelets 339 thou/uL (152-406); RBC Red Blood Cell Count 5.78 M/uL (4.33-5.43); Red Cell Distribution Width 14.8 % (12.1-15.2)
[2024-10-07 19:19] LABS: Influenza A Ag Negative; Influenza B Ag Negative; SARS-CoV-2 Antigen Rapid Res Negative (Negative)
[2024-10-07 19:21] LABS: PT Prothrombin Time 17.4 SECONDS (10-13.0); Protime INR 1.56
--- NOTE | 2024-10-07 19:25 | RAD REPORT ---
EXAMINATION: ONE VIEW CHEST XR CLINICAL INDICATION: DYSPNEA TECHNIQUE: Frontal chest projection is submitted. Examination is limited by patient positioning and t echnique. COMPARISON: 10/03/2024 FINDINGS: The lungs are well inflated and clear. The heart is normal in size. No displaced fractures identified . IMPRESSION: No acute intrathoracic abnormalities.
[2024-10-07 19:36] LABS: Albumin 3.8 g/dL (3.4-5.0); Albumin/Globulin Ratio 0.9 (1.1-1.8); Bilirubin Direct 0.3 mg/dL (0-0.2); Bilirubin Indirect, Calculated 0.8 mg/dL (0.2-0.8); Bilirubin Total 1.1 mg/dL (0.2-1.0); Globulin 4.2 g/dL (2.3-3.5); Magnesium 2.3 mg/dL (1.6-2.4); Troponin High Sensitivity 8.2 pg/mL (<58.9)
--- NOTE | 2024-10-07 19:38 | EDPHYS ---
Physician Documentation [facility] Name: Oswaldo Chou Age: 73 yrs Sex: Male : 1950 Arrival Date: 10/07/2024 Time: 18:06 Bed 18 Private MD: ED Physician Sandie Montero HPI: 10/07 19:32 This 73 yrs old Male presents to ER via Wheelchair with complaints of gb1 Shortness Of Breath, low heart rate. 19:32 Mr. Mynor Buchanan is a 73-year-old male with history of atrial fibrillation he gb1 was recently here in the hospital just a couple days ago with difficulty breathing and shortness of breath. He was cardioverted at that time and he had COVID just a few days ago as well. He was more short of breath today upon arrival to the emergency department and he denies any chest pain.. Historical: - Allergies: 18:13 adhesive tape; iw - PMHx: 18:13 Atrial fibrillation; iw - PSHx: 18:13 back surgery; stents to the DONN lower legs; iw - Immunization history:: Adult Immunizations unknown. - Infectious Disease History:: Denies. - Social history:: Smoking status: Patient denies any tobacco usage or history of. Exam: 19:32 Constitutional: This is a well developed, well nourished patient who is awake, alert, gb1 and in no acute distress. Head/Face: Normocephalic, atraumatic. Eyes: Pupils equal round and reactive to light, extra-ocular motions intact. Lids and lashes normal. Conjunctiva and sclera are non-icteric and not injected. Cornea within normal limits. Periorbital areas with no swelling, redness, or edema. ENT: Nares patent. No nasal discharge, no septal abnormalities noted. Tympanic membranes are normal and external auditory canals are clear. Oropharynx with no redness, swelling, or masses, exudates, or evidence of obstruction, uvula midline. Mucous membranes moist. Neck: Trachea midline, no thyromegaly or masses palpated, and no cervical lymphadenopathy. Supple, full range of motion without nuchal rigidity, or vertebral point tenderness. No Meningismus. Chest/axilla: Normal chest wall appearance and motion. Nontender with no deformity. No lesions are appreciated. Cardiovascular: Irregular rate and rhythm with a normal S1 and S2. No gallops, murmurs, or rubs. Normal PMI, no JVD. No pulse deficits. Respiratory: Lungs have equal breath sounds bilaterally, clear to auscultation and percussion. No rales, rhonchi or wheezes noted. No increased work of breathing, no retractions or nasal flaring. Abdomen/GI: Soft, non-tender, with normal bowel sounds. No distension or tympany. No guarding or rebound. No evidence of tenderness throughout. Back: No spinal tenderness. No costovertebral tenderness. Full range of motion. Skin: Warm, dry with normal turgor. Normal color with no rashes, no lesions, and no evidence of cellulitis. MS/ Extremity: Pulses equal, no cyanosis. Neurovascular intact. Full, normal range of motion. Vital Signs: 18:12 Resp 24; Pulse Ox 98% on 3 lpm NC; iw 18:24 BP 114 / 100; Pulse 133; Resp 20; Pulse Ox 98% on NC; db 18:40 Temp 97.6; db 19:00 BP 118 / 82; Pulse 128; Resp 22; Pulse Ox 98% on NC; db 19:30 BP 124 / 108; Pulse 102; Resp 16; Pulse Ox 98% on 3 lpm NC; ay 21:00 BP 104 / 63; Pulse 117; Resp 17; Pulse Ox 96% on 3 lpm NC; ay MDM: 18:27 Medical Screening Exam initiated gb 19:32 Data reviewed: vital signs, nurses notes. 10/07 18:13 Order name: Basic Metabolic Panel; Complete Time: 19:38 10/07 18:13 Order name: CBC with Diff; Complete Time: 19:32 10/07 18:13 Order name: LFT's; Complete Time: 19:38 10/07 18:13 Order name: Magnesium; Complete Time: 19:38 10/07 18:13 Order name: NT PRO-BNP; Complete Time: 19:38 10/07 18:13 Order name: PT-INR; Complete Time: 19:32 10/07 18:13 Order name: Troponin HS; Complete Time: 19:38 10/07 18:14 Order name: COVID-19 Ag + Flu A+B Ag; Complete Time: 19:32 /21 20:53 Order name: Urinalysis w/ reflexes EDMS 10/07 20:54 Order name: CBC with Automated Diff EDMS 10/07 20:54 Order name: CBC with Automated Diff EDMS 10/07 20:54 Order name: Comprehensive Metabolic Panel EDMS 10/07 20:54 Order name: Comprehensive Metabolic Panel EDMS 10/07 18:13 Order name: XRAY Chest (1 view); Complete Time: 19:32 gb1 10/07 18:13 Order name: Cardiac monitoring; Complete Time: 18:40 gb1 10/07 18:13 Order name: EKG - Nurse/Tech; Complete Time: 18:40 gb1 10/07 18:13 Order name: IV Saline Lock; Complete Time: 19:10 gb1 10/07 18:13 Order name: Labs collected and sent; Complete Time: 19:10 gb1 10/07 18:13 Order name: O2 Per Protocol; Complete Time: 18:40 gb1 10/07 18:13 Order name: O2 Sat Monitoring; Complete Time: 18:40 gb1 Administered Medications: No medications were administered Disposition: 19:38 Critical Care:. gb1 Disposition Summary: 10/07/24 19:38 Hospitalization Ordered Notes: Hospitalization Status: Inpatient Admission gb1 Provider: Darell Zarate Condition: Stable gb1 Problem: an acute exacerbation gb1 Symptoms: have worsened gb1 Bed/Room Type: Standard [facility] Location: Intensive Care Unit(10/08/24 01:57) Room Assignment: 4-(10/08/24 01:57) Diagnosis - Paroxysmal atrial fibrillation gb1 - Dyspnea gb1 Forms: - Medication Reconciliation Form gb1 - SBAR form gb1 - Leadership Thank You Letter gb1 Critical care time excluding procedures: 19:38 Critical care time: Bedside Care: 45 minutes, Consultation: 20 minutes, Family gb1 Intervention: 45 minutes. Total time: 110 minutes Signatures: Dispatcher [employer] Yvonne Houston RN RN kl Williams, Irene, RN RN iw Benton, Danielle, RN RN db Blocker, Gina, MD MD gb1 Corrections: (The following items were deleted from the chart) 18:14 18:14 BASIC METABOLIC PANEL+C.LAB.BRZ ordered. EDMS EDPR 18:14 18:14 CBC+H.LAB.BRZ ordered. EDMS EDMS 18:14 18:14 HEPATIC FUNCTION+C.LAB.BRZ ordered. EDMS EDMS 18:14 18:14 MAGNESIUM+C.LAB.BRZ ordered. EDMS EDMS 18:14 18:14 PROBNP+C.LAB.BRZ ordered. EDMS EDMS 18:14 18:14 PROTIME (+INR)+COAG.LAB.BRZ ordered. EDMS EDMS 18:14 18:14 Troponin High Sensitivity+C.LAB.BRZ ordered. EDMS EDMS 18:14 18:14 Chest Single View+RAD.RAD.BRZ ordered. EDMS EDMS 18:14 18:14 COVID-19 Ag + Flu A+B Ag+I.LAB.BRZ ordered. EDMS EDMS 10/08 01:57 10/07 19:38 Telemetry/MedSurg (Inpatient) 1 kl 10/08 01:57 10/07 19:38 gb1 kl
--- NOTE | 2024-10-07 19:38 | ER ---
Nurse's Notes [facility] Name: Oswaldo Chou Age: 73 yrs Sex: Male : 1950 Arrival Date: 10/07/2024 Time: 18:06 Bed 18 Private MD: Diagnosis: Paroxysmal atrial fibrillation;Dyspnea Presentation: 10/07 18:12 Chief complaint: Patient states: very SOB today , his HR has been dropping today , he iw feels weak and dizzy, was admitted to hospital recently for Afib. Coronavirus screen: Client presents with at least one sign or symptom that may indicate coronavirus-19. Ebola Screen: No symptoms or risks identified at this time. Initial Sepsis Screen: Does the patient meet any 2 criteria? No. Patient's initial sepsis screen is negative. Does the patient have a suspected source of infection? No. Patient's initial sepsis screen is negative. Risk Assessment: Do you want to hurt yourself or someone else? Patient reports no desire to harm self or others. Onset of symptoms was October 07, 2024. 18:12 Acuity: REINA 2 iw 18:12 Method Of Arrival: Wheelchair iw Historical: - Allergies: 18:13 adhesive tape; iw - PMHx: 18:13 Atrial fibrillation; iw - PSHx: 18:13 back surgery; stents to the DONN lower legs; iw - Immunization history:: Adult Immunizations unknown. - Infectious Disease History:: Denies. - Social history:: Smoking status: Patient denies any tobacco usage or history of. Screenin:40 [facility] ED Fall Risk Assessment (Adult) History of falling in the last 3 months, db including since admission No falls in past 3 months (0 pts) Confusion or Disorientation No (0 pts) Intoxicated or Sedated No (0 pts) Impaired Gait Yes (1 pt) Mobility Assist Device Used Yes (1 pt) Altered Elimination No (0 pt) Score/Fall Risk Level 0 - 2 = Low Risk Oriented to surroundings, Maintained a safe environment. Abuse screen: Denies threats or abuse. Denies injuries from another. Nutritional screening: No deficits noted. Tuberculosis screening: No symptoms or risk factors identified. Assessment: 18:40 Reassessment: Patient and/or family updated on plan of care and expected duration. Pain db level reassessed. Patient is alert, oriented x 3, equal unlabored respirations, skin warm/dry/pink. General: Appears distressed, uncomfortable. Pain: Denies pain. Neuro: Level of Consciousness is awake, alert, obeys commands, Oriented to person, place, time, situation. Cardiovascular: Rhythm is atrial fibrillation with rapid ventricular response. Respiratory: Airway is patent Respiratory effort is even, labored, Respiratory pattern is regular, symmetrical. 19:42 General: Appears uncomfortable, Behavior is cooperative. Pain: Denies pain. Neuro: ay Level of Consciousness is awake, alert, obeys commands, Oriented to person, place, time, situation, Speech is normal. Cardiovascular: Denies chest pain, Capillary refill < 3 seconds Rhythm is atrial fibrillation. Respiratory: Breath sounds are diminished. GI: Patient currently denies nausea, vomiting. 10/08 04:44 Reassessment: LEARNING MANAGER to call back for a report. ay Vital Signs: 10/07 18:12 Resp 24; Pulse Ox 98% on 3 lpm NC; iw 18:24 BP 114 / 100; Pulse 133; Resp 20; Pulse Ox 98% on NC; db 18:40 Temp 97.6; db 19:00 BP 118 / 82; Pulse 128; Resp 22; Pulse Ox 98% on NC; db 19:30 BP 124 / 108; Pulse 102; Resp 16; Pulse Ox 98% on 3 lpm NC; ay 21:00 BP 104 / 63; Pulse 117; Resp 17; Pulse Ox 96% on 3 lpm NC; ay ED Course: 18:09 Patient arrived in ED. im 18:13 Sandie Montero MD is Attending Physician. gb1 18:13 Triage completed. iw 18:40 Missed attempt(s): 20 gauge in right antecubital area. Bleeding controlled, band aid db applied, catheter tip intact. 18:40 Patient has correct armband on for positive identification. Placed in gown. Bed in low db position. Call light in reach. Side rails up X2. Client placed on continuous cardiac and pulse oximetry monitoring. NIBP monitoring applied. supervisor smoke control on. Pulse ox on. NIBP on. Pillow given. 18:50 Missed attempt(s): 22 gauge in right wrist. Bleeding controlled, band aid applied, db catheter tip intact. 19:11 Basic Metabolic Panel Sent. em1 19:11 CBC with Diff Sent. em1 19:11 LFT's Sent. em1 19:11 Magnesium Sent. em1 19:11 NT PRO-BNP Sent. em1 19:11 PT-INR Sent. em1 19:11 Troponin HS Sent. em1 19:11 Initial lab(s) drawn, by me, sent to lab. Inserted saline lock: 22 gauge in right em1 forearm, using aseptic technique. Blood collected. Flushed with 10 mL NS. 19:15 XRAY Chest (1 view) In Process Unspecified. EDCO 19:37 Sandie Montero MD is Hospitalizing Provider. [facility] 19:37 Hospitalizing Provider role handed off by Sandie Montero MD [facility] 19:37 Darell Zarate MD is Hospitalizing Provider. [facility] 19:42 Mark De Jesus, RN is Primary Nurse. 10/08 05:45 No provider procedures requiring assistance completed. Patient admitted, IV remains in cp4 place. 05:46 Provided Education on: admission. 4 05:46 Arm band placed on right wrist. Patient placed in waiting room. cp4 Administered Medications: No medications were administered Medication: 10/07 18:40 VIS not applicable for this client. db Outcome: 19:38 Decision to Hospitalize by Provider. [facility] 10/08 05:45 Admitted to ICU accompanied by nurse, via stretcher, on monitor, with chart, cp4 Condition: stable Instructed on the need for admit, 05:46 Patient left the ED. cp4 Signatures: Dispatcher [employer] EDJuana Rocha, RN Terrell Wang em1 Marya Solis, Marti Barbosa RN Sandie Montero MD MD [facility] Dinorah Bruce cp4 Mark De Jesus RN RN ay
--- NOTE | 2024-10-07 20:43 | P.HP ---
Certification for Inpatient Patient admitted to: Inpatient With expected LOS: >2 Midnights Practitioner: I am a practitioner with admitting privileges, knowledge of patient current condition, hospital course, and medical plan of care. Services: Services provided to patient in accordance with Admission requirements found in Title 42 Section 412.3 of the Code of Federal Regulations Patient History Date of Service: 10/07/24 Reason for admission: Palpitation / SOB History of Present Illness: 73-year-old male with history of atrial fibrillation on chronic anticoagulation, PAD, asthma, hypothyroidism presents to the emergency department with chief complaint of shortness of breath and irregular heart rate. He was recently admitted here in the hospital just a couple days ago with difficulty breathing and shortness of breath. He was cardioverted at that time and he had COVID just a few days ago as well. He was more short of breath today upon arrival to the emergency department . and he denies any chest pain.. He was assessed in the ER and found to have A-fib with RVR and was admitted for further management . Allergies adhesive tape Allergy (Verified 09/22/22 13:47) Hives/Rash Home medications list reviewed: Yes Home Medications: Clopidogrel Bisulfate [Plavix*] 75 mg PO BEDTIME 90 Days #90 tab 08/16/22 Metoprolol Tartrate [Lopressor*] 25 mg PO [id number] 07/10/23 Aspirin [Aspirin EC 81 MG] 81 tab PO BEDTIME 12/08/23 Furosemide [Lasix*] 40 mg PO DAILY 12/08/23 Levothyroxine [Synthroid*] 50 mcg PO [id number] 12/08/23 Memantine HCl 5 mg PO DAILY 12/08/23 Prednisone [Sterapred Ds] 10 mg PO DAILY 6 Days #9 tab 12/08/23 Apixaban [Eliquis] 5 mg PO BID 30 Days #60 tab 10/05/24 Benzonatate [Tessalon Perle*] 100 mg PO TID PRN 5 Days #15 cap 10/05/24 Clopidogrel Bisulfate [Plavix*] 75 mg PO DAILY 30 Days #30 tab 10/05/24 Furosemide [Lasix] 40 mg PO DAILY 30 Days #30 tab 10/05/24 Guaifenesin [Mucinex] 600 mg PO BID 15 Days #30 tab 10/05/24 Mometasone/Formoterol [Dulera 200 Mcg/5 Mcg Inhaler] 2 puff IH BID 30 Days #1 inhaler 10/05/24 Potassium Oral Tab [Klor-Con 10 mEq Tab*] 10 meq PO DAILY 30 Days #30 tab 10/05/24 Sotalol HCl [Betapace*] 80 mg PO BID 6AM 6PM 30 Days #60 tab 10/05/24 predniSONE [Prednisone*] 20 mg PO BID 5 Days #10 tab 10/05/24 - Past Medical/Surgical History Diabetic: No Past Medical History: Reviewed- Non-Contributory -: Atrial fib -: Asthma -: PAD -: Hypothyroidism Past Surgical History: Reviewed- Non-Contributory -: RLE stent -: back surgery Psychosocial/ Personal History: Patient lives at home with his - Family History Family History: Reviewed- Non-Contributory - Social History Smoking Status: Never smoker Alcohol use: No CD- Drugs: No Caffeine use: No Review of Systems 10-point ROS is otherwise unremarkable Physical Examination - Vital Signs Temperature: 97.6 F Blood Pressure: 98/62 Pulse: 122 Respirations: 19 Pulse Ox (%): 94 - Physical Exam General: Alert, Oriented x3, Moderate distress HEENT: Atraumatic, Normocephalic Neck: Supple Respiratory: Diminished, Crackles/rales, Expiratory wheezes Cardiovascular: Regular rate/rhythm, Normal S1 S2 Capillary refill: <2 Seconds Gastrointestinal: Soft and benign, W/out hepatosplenomegaly Musculoskeletal: No clubbing Integumentary: No rashes Neurological: Normal strength at 5/5 x4 extr, Cranial nerves 3-12 intact, Normal reflexes 2+ Lymphatics: No axilla or inguinal lymphadenopathy - Studies Laboratory Data (last 24 hrs) 10/07/24 10/07/24 10/07/24 19:08 19:08 19:08 WBC 13.20 H Hgb 18.9 H Hct 57.8 H Plt Count 339 PT 17.4 H INR 1.56 Sodium 137 Potassium 4.0 BUN 22 H Creatinine 0.91 Glucose 129 H Magnesium 2.3 Total Bilirubin 1.1 H AST 20 ALT 55 Alkaline Phosphatase 91 Assessment and Plan - Plan A-fib with RVR Monitor closely under telemetry Patient had a recent cardioversion Will start on amiodarone drip with bolus and maintenance Acute on chronic CHF possibly systolic/diastolic Monitor closely on telemetry Started on diuresis X-ray findings noted Oxygen supplementation Will try to wean down oxygen requirement Continue home medications Titrate as needed Will obtain an echocardiogram Cardiology consult Hypertension Antihypertensives titrated Continue home medications and titrate as needed Hyperlipidemia Continue statin Peripheral artery disease Continue home medications and titrate as needed Hypotension Started on albumin Monitor closely GI/DVT prophylaxis Advanced directive full code Discharge Plan: Home Plan to discharge in: 48 Hours - Advance Directives Does patient have a Living Will: No Does patient have a Durable POA for Healthcare: No - Code Status/Comfort Care Code Status: Full Code Time Spent Managing Pts Care (In Minutes): 54
[2024-10-07] MEDS ORDERED: ACETAMINOPHEN 325 MG TABLET PO PRN (20:46)
[2024-10-07] MEDS ORDERED: ONDANSETRON 4 MG/2 ML VIAL IV PRN (20:46)
[2024-10-07] MEDS ORDERED: ALBUTEROL 2.5 MG/3 ML NEB SOL NEB PRN (20:46)
[2024-10-07] MEDS: AMIODARONE HCL 150 MG in D5W 100 ML IV STA (20:52)
[2024-10-07] MEDS: ALBUMIN HUMAN 25% 100 ML IV ONE (20:52)
[2024-10-07] MEDS ORDERED: AMIODARONE HCL 450 MG in D5W 241 ML IV SCH (21:00)
[2024-10-07] MEDS: NA CHLORIDE 0.9% 1,000 ML IV SCH (21:00)
[2024-10-07] MEDS ORDERED: NA CHLORIDE 0.9% 1,000 ML ONE (21:36)
[2024-10-07] MEDS ORDERED: ALBUMIN HUMAN 25% 100 ML IV ONE (21:37)
[2024-10-07] MEDS ORDERED: AMIODARONE HCL 150 MG/3 ML INJ IV ONE (21:45)
[2024-10-07] MEDS ORDERED: D5W 100 ML IV ONE (21:45)
[2024-10-08] MEDS ORDERED: AMIODARONE IN DEXTROSE,ISO-OSM 360 MG/200 ML BAG IV ONE (05:18)
[2024-10-08 05:51] LABS: Absolute Eosinophils 0.3 K/uL (0-0.5); Absolute Monocytes 0.8 K/uL (0.1-1.3); Absolute Neutrophil 7.3 K/uL (1.8-8.0); Basophils % 0.2 % (0-1.3); Eosinophils % 3.4 % (0-4.4); Hematocrit 47.5 % (39.6-49.0); Hemoglobin 15.9 g/dL (13.6-17.9); Lymphocytes % 10.1 % (15.3-44.8); MCH 33.5 pg (27.0-35.0); MCHC 33.4 g/dL (32.0-36.0); MCV 100.3 fL (80-100); MPV 8.6 fL (7.6-11.3); Monocytes % 8.3 % (3.3-12.3); Platelets 247 thou/uL (152-406); RBC Red Blood Cell Count 4.73 M/uL (4.33-5.43); Red Cell Distribution Width 14.7 % (12.1-15.2)
[2024-10-08 06:24] LABS: Albumin 3.6 g/dL (3.4-5.0); Albumin/Globulin Ratio 1.2 (1.1-1.8); Anion Gap 4.7 mEq/L (5.0-15.0); Bilirubin Total 1.1 mg/dL (0.2-1.0); Globulin 2.9 g/dL (2.3-3.5); Protein, Total 6.5 g/dL (6.4-8.2)
[2024-10-08 06:28] LABS: Potassium 3.7 mEq/L (3.5-5.1)
[2024-10-08 08:35] LABS: Platelet Estimate ADEQ; White Blood Cell Scan OK (OK)
[2024-10-08 08:36] LABS: Blood Morphology Comment NOTED (NOT SEEN); Platelets Clumped FEW; Stomatocytes 1+
[2024-10-08] MEDS: AMIODARONE IN DEXTROSE,ISO-OSM 360 MG/200 ML BAG IV ONE (09:57)
[2024-10-08] MEDS: GUAIFENESIN 600 MG SA TAB PO SCH (10:53)
[2024-10-08] MEDS: CLOPIDOGREL 75 MG TABLET PO SCH (10:53)
[2024-10-08] MEDS: ENOXAPARIN 40 MG/0.4 ML SQ SCH (10:53)
[2024-10-08] MEDS: METOPROLOL TAR 25 MG TAB PO SCH (10:54)
[2024-10-08] MEDS: MEMANTINE HCL 10 MG TABLET PO SCH (10:54)
[2024-10-08] MEDS: AMIODARONE HCL 900 MG in Dextrose 5%-Water 482 ML IV SCH (10:56)
[2024-10-08] MEDS: DIGOXIN 0.25 MG/ML AMP IV ONE (10:56)
[2024-10-08] MEDS: FUROSEMIDE 20 MG/ 2ML VIAL IV ONE (14:54)
[2024-10-08] MEDS: FENTANYL CITR 100 MCG/2 ML IV ONE (16:48)
--- NOTE | 2024-10-08 16:58 | RAD REPORT ---
Procedure: Chest Single View HISTORY: Shortness of breath COMPARISON: October 03, 2024 FINDINGS: The lungs appear clear of acute infiltrate. No significant pleural effusion noted. The heart is normal size. IMPRESSION: No acute abnormality is displayed.
[2024-10-08 18:11] LABS: Specific Gravity 1.009 (1.005-1.030); Sqamous Epithelial <5 /HPF (None Seen); Urine Bacteria None Seen /HPF (<20); Urine Bilirubin NEGATIVE (Negative); Urine Blood Negative (Negative); Urine Clarity Clear (Clear); Urine Color Light-Yellow (Yellow); Urine Culture Reflex Order NOT NEEDED; Urine Glucose NEGATIVE (Negative); Urine Ketones NEGATIVE (Negative); Urine Microscopic Reflex YN ORDER UMIC; Urine Mucus Slight /HPF (None Seen); Urine Nitrite NEGATIVE (Negative); Urine Protein NEGATIVE (Negative); Urine RBC <5 /HPF (None Seen); Urine Urobilinogen Normal (Normal); Urine WBC <5 /HPF (<5); Urine pH 6.5 (5.0-7.0)
[2024-10-08] MEDS: ASPIRIN EC 81 MG TAB PO SCH (20:34)
[2024-10-08] MEDS: POTASSIUM CL SA 10 MEQ TAB PO ONE (20:34)
[2024-10-08] MEDS: APIXABAN 5 MG TABLET PO SCH (20:34)
[2024-10-08] MEDS: FENTANYL CITR 100 MCG/2 ML IV PRN (21:12)
--- NOTE | 2024-10-08 23:22 | P.PN ---
Subjective Date of Service: 10/08/24 Patient appears to be agitated and angry at times. I asked about why he was so upset. He does not really know but he feels like he is having cardiac issues. Patient is on Namenda for his dementia as well. Patient looks very anxious and will start him also main is a lytics. Will get his rate controlled with amiodarone drip and continue with anticoagulation. Cardiology consulted as well. Review of Systems 10-point ROS is otherwise unremarkable Physical Examination - Vital Signs Temperature: 97.8 F Blood Pressure: 110/68 Pulse: 96 Respirations: 31 Pulse Ox (%): 99 - Physical Exam General: Alert, In no apparent distress, Oriented x1, Demented, Confused Respiratory: Clear to auscultation bilaterally, Normal air movement Cardiovascular: No murmurs, Irregular heart rate/rhythm Gastrointestinal: Normal bowel sounds, Soft and benign, Non-distended, No tenderness, No rebound, No guarding Musculoskeletal: No clubbing, No swelling, No tenderness Integumentary: Erythema (right LE) Neurological: Sensation intact, Cranial nerves 3-12 intact - Studies Medications List Reviewed: Yes Assessment & Plan - Problems (Diagnosis) (1) Atrial fibrillation with RVR Current Visit: Yes Status: Acute (2) Acute systolic (congestive) heart failure Current Visit: Yes Status: Acute (3) Anxiety disorder Current Visit: Yes Status: Acute (4) Alzheimer dementia Current Visit: Yes Status: Acute (5) COPD exacerbation Current Visit: No Status: Acute (6) Cellulitis of right lower extremity Current Visit: No Status: Resolved - Plan 1. Atrial fibrillation with rapid ventricular response; continue with amiodarone drip and anticoagulation 2. Acute CHF systolic dysfunction; continue with diuretics and Aldactone and continue with medication for rate control 3. COPD; continue with inhaler therapy 4. History of Alzheimer's dementia; patient on the vent does; resume 5. History of anxiety disorder; anxiolytics as needed 6. GI DVT prophylaxis Discharge Plan: Home Plan to discharge in: Greater than 2 days - Advance Directives Does patient have a Living Will: No Does patient have a Durable POA for Healthcare: No - Code Status/Comfort Care Code Status: Full Code Critical Care: Yes Time Spent Managing PTS Care (In Minutes): 45
[2024-10-09] MEDS: DIGOXIN 0.25 MG/ML AMP IV SCH (00:34)
[2024-10-09] MEDS: LEVOTHYROXINE SOD 0.05 MG TABLET PO SCH (05:32)
[2024-10-09 06:05] LABS: Absolute Eosinophils 0.3 K/uL (0-0.5); Absolute Lymphocytes (CBC) 0.7 K/uL (0.7-4.9); Basophils % 0.4 % (0-1.3); Eosinophils % 2.7 % (0-4.4); Hematocrit 48.1 % (39.6-49.0); Hemoglobin 15.7 g/dL (13.6-17.9); Lymphocytes % 6.5 % (15.3-44.8); MCH 32.9 pg (27.0-35.0); MCHC 32.6 g/dL (32.0-36.0); MCV 101.1 fL (80-100); MPV 8.6 fL (7.6-11.3); Monocytes % 8.7 % (3.3-12.3); Neutrophils % 81.7 % (41.7-73.7); Nucleated Red Blood Cells % 0.1 % (0-0); Platelets 250 thou/uL (152-406); RBC Red Blood Cell Count 4.76 M/uL (4.33-5.43); Red Cell Distribution Width 14.7 % (12.1-15.2)
[2024-10-09 06:43] LABS: Anion Gap 3.8 mEq/L (5.0-15.0); Potassium 3.8 mEq/L (3.5-5.1)
[2024-10-09 08:07] LABS: Albumin 3.3 g/dL (3.4-5.0); Bilirubin Direct 0.3 mg/dL (0-0.2); Bilirubin Indirect, Calculated 0.8 mg/dL (0.2-0.8); Bilirubin Total 1.1 mg/dL (0.2-1.0); Globulin 3.4 g/dL (2.3-3.5); Protein, Total 6.7 g/dL (6.4-8.2)
[2024-10-09] MEDS ORDERED: HOME MED 1 EA UNK (Memantine Hcl [Memantine Hcl] 5 MG Tablet) PO SCH (09:00)
[2024-10-09] MEDS: POTASSIUM CL SA 10 MEQ TAB PO ONE (09:09)
--- NOTE | 2024-10-09 18:04 | CON ---
Date of Consultation: 10/09/2024 Reason For Consultation: Atrial fibrillation with rapid ventricular response. History Of Present Illness: 73-year-old male with history of chronic atrial fibrillation, on anticoa gulation, status post cardioversion 2 weeks ago and he converted back to sinus rhythm and then he ten t back into AFib. Has history of asthma, PAD, hypothyroidism, presented with palpitations with short ness of breath. He was in atrial fibrillation with rapid ventricular response. He was started on am iodarone drip. His heart rate in the 90s and he is still having mild shortness of breath with activi ties and denies having any chest pain. Past Medical History: As outlined above in the HPI. Medications: Refer to reconciliation sheet for detailed list. Allergies: NO KNOWN DRUG ALLERGIES. Family History: No premature coronary artery disease or cancer. Social History: He does not smoke or drink. Does not use any drugs. Review of Systems: All systems reviewed and they were negative except as mentioned in the HPI. Physical Examination: Vital Signs: Reviewed. Head and Neck: Pupils are equal, reactive to light. Intact eye movements. No JVD. No cervical lym phadenopathy. Neck is supple. Thyroid is not enlarged. Lungs: Clear to auscultation bilaterally. No rhonchi, wheezing, or crackles. No accessory muscle u se. Heart: Irregularly irregular. No extra sounds. Abdomen: Soft, nontender. Bowel sounds positive. No organomegaly. No masses or hernia. No rigidi ty or rebound. Extremities: No edema, clubbing, or cyanosis. Intact pulses. Skin: No rash. No nodules. Neurologic: Alert, awake, and oriented x3. No acute focal deficits appreciated. Investigations: BUN 11, creatinine 0.73, and hemoglobin is 15.7. Chest x-ray, no acute abnormalitie s. Assessment And Plan: 1. Atrial fibrillation with rapid ventricular response. He is being loaded with amiodarone. Keep hi m NPO past midnight. Plan for URVASHI-guided cardioversion tomorrow and continue Eliquis as well as meto prolol. 2. Shortness of breath. NT-proBNP is elevated. He likely has diastolic dysfunction with atrial fibr illation and rapid ventricular response and he is having exacerbation and it should improve with conv erting to sinus rhythm. If conversion to sinus rhythm does not sustain, then atrial fibrillation abl ation should be considered. 3. Hypertension. Blood pressure is controlled. 4. Elevated NT-proBNP. Patient had an echocardiogram done on September 30 about 10 days ago. Ejection f raction is severely reduced with global hypokinesis. We will look up his records in the office and s ee if an ischemia workup is done on him whether this is ischemic or nonischemic and plan accordingly. SR/MODL Voice ID: [id number] Report ID: [id number]
--- NOTE | 2024-10-09 19:59 | P.PN ---
Date of Service: 10/09/24 Subjective Patient is still feeling short of breath; remains in atrial fibrillation but rate is better controlled. Patient blood pressure is diminished and once the blood pressure improves we will try to diurese more aggressively. Physical Examination - Vital Signs Reviewed - Physical Exam General: Alert, In no apparent distress, Oriented x1, Demented, Confused Respiratory: Diminished breath sounds but otherwise clear Cardiovascular: No murmurs, Irregular heart rate/rhythm Gastrointestinal: Normal bowel sounds, Soft and benign, ND/NT Musculoskeletal: No clubbing, No swelling, No tenderness Integumentary: Erythema (right LE) Neurological: Sensation intact, Cranial nerves 3-12 intact - Studies Medications List Reviewed: Yes Assessment & Plan - Problems (Diagnosis) (1) Atrial fibrillation with RVR Current Visit: Yes Status: Acute (2) Acute systolic (congestive) heart failure; ejection fraction of 30-35% Current Visit: Yes Status: Acute (3) Anxiety disorder Current Visit: Yes Status: Acute (4) Alzheimer's dementia Current Visit: Yes Status: Acute (5) COPD exacerbation Current Visit: No Status: Acute - Plan Continue with plan of care as mentioned below: 1. Atrial fibrillation with rapid ventricular response; continue with amiodarone drip and anticoagulation; scheduled for URVASHI with cardioversion 2. Acute CHF systolic dysfunction (EF=30-35%); continue with diuretics and Aldactone and continue with medication for rate control; cardioversion in a.m. May benefit from cardiac catheterization 3. COPD; continue with inhaler therapy as needed 4. History of Alzheimer's dementia; patient on namenda; resume 5. History of anxiety disorder; anxiolytics as needed 6. GI DVT prophylaxis Discharge Plan: Home Plan to discharge in: Greater than 2 days - Advance Directives Does patient have a Living Will: No Does patient have a Durable POA for Healthcare: No - Code Status/Comfort Care Code Status: Full Code Critical Care: Yes Time Spent Managing PTS Care (In Minutes): 45
[2024-10-10] MEDS: IPRATROPIUM BROM 0.5MG/2.5ML NEB PRN (02:10)
[2024-10-10] MEDS: ALBUTEROL 2.5 MG/3 ML NEB SOL NEB PRN (02:10)
[2024-10-10] MEDS: AMIODARONE HCL 200 MG TAB PO SCH (10:05)
[2024-10-10] MEDS: FUROSEMIDE 100 MG in NA CHLORIDE 0.9% 90 ML IV SCH (10:35)
--- NOTE | 2024-10-10 10:47 | P.PN ---
Subjective Date of Service: 10/10/24 Chief Complaint: Palpitation / SOB Subjective: No new changes, No C/O voiced, Tolerating diet, Ambulating, Improving Review of Systems 10-point ROS is otherwise unremarkable Physical Examination - Vital Signs Temperature: 97.6 F Blood Pressure: 112/71 Pulse: 85 Respirations: 19 Pulse Ox (%): 97 - Physical Exam General: Alert, In no apparent distress HEENT: Atraumatic, PERRLA, EOMI Neck: Supple, JVD not distended Respiratory: Clear to auscultation bilaterally, Normal air movement Cardiovascular: Regular rate/rhythm, Normal S1 S2 Gastrointestinal: Normal bowel sounds, No tenderness Musculoskeletal: No tenderness Integumentary: No rashes Neurological: Normal speech, Normal tone, Normal affect Lymphatics: No axilla or inguinal lymphadenopathy - Studies Medications List Reviewed: Yes Assessment And Plan - Current Problems (Diagnosis) (1) Acute on chronic combined systolic (congestive) and diastolic (congestive) heart failure Current Visit: Yes Status: Acute Plan: would recommend diuresis with IV lasix drip at 2.5 mg/hr continue lopressor 25 mg po bid continue to monitor input and output and electrolytes will do coronary angiogram in am to rule out ischemia as reason for HFrEF. (2) Afib Current Visit: No Status: Chronic Plan: patient had a recent URVASHI DCCV, presented again with RVR, rate is controlled now, he was discharged on sotalol stop amiodarone drip start Amiodarone 200 mg po BID Hold eliquis for coronary angiogram in am Qualifiers: Atrial fibrillation type: unspecified chronic Qualified Code(s): I48.20 - Chronic atrial fibrillation, unspecified; I48.2 - Chronic atrial fibrillation
[2024-10-10] MEDS: POTASSIUM 25 MEQ EFFERV TAB PO ONE (10:52)
[2024-10-10] MEDS: POTASSIUM 25 MEQ EFFERV TAB ONE (10:54)
--- NOTE | 2024-10-10 12:08 | EKG ---
Test Date: 2024-10-07 Test Time: 18:18:50 Rhinologist: RADHA MEASUREMENT RESULTS: Intervals: Rate: 135 DC: QRSD: 86 QT: 352 QTc: 528 [place]: P: DC: QRS: 259 T: 11 INTERPRETIVE STATEMENTS: Atrial fibrillation with rapid ventricular response Right superior axis deviation Pulmonary disease pattern ST & T wave abnormality, consider anterolateral ischemia Abnormal ECG Compared to ECG 10/05/2024 09:23:50 Right superior axis now present ST (T wave) deviation now present Possible ischemia now present Sinus rhythm no longer present Left-axis deviation no longer present Myocardial infarct finding no longer present Electronically Signed On 10-10-24 12:02:31 CDT by Ulices Garner
[2024-10-10 12:18] LABS: Specific Gravity 1.026 (1.005-1.030); Sqamous Epithelial <5 /HPF (None Seen); Urine Bacteria 20-50 /HPF (<20); Urine Bilirubin NEGATIVE (Negative); Urine Blood 3+ (OVER) (Negative); Urine Clarity Extremely Turbid (Clear); Urine Color Yellow (Yellow); Urine Culture Reflex Order REFLEXED; Urine Glucose NEGATIVE (Negative); Urine Ketones 3+ (Negative); Urine Microscopic Reflex YN ORDER UMIC; Urine Mucus Slight /HPF (None Seen); Urine Nitrite NEGATIVE (Negative); Urine Protein TRACE (Negative); Urine RBC >50 /HPF (None Seen); Urine Urobilinogen 3+ (Normal); Urine WBC 20-50 /HPF (<5); Urine pH 6.5 (5.0-7.0)
--- NOTE | 2024-10-11 06:19 | P.PN ---
Date of Service: 10/10/24 Subjective Patient states he feels a little bit better today. His respiratory status is improved. Patient with cardiac catheterization tomorrow with possible URVASHI with cardioversion afterwards. Will continue monitoring clinical symptoms. Physical Examination - Vital Signs Reviewed - Physical Exam General: Alert, In no apparent distress, Oriented x1, Demented, Confused Respiratory: Diminished breath sounds but otherwise clear Cardiovascular: No murmurs, Irregular heart rate/rhythm Gastrointestinal: Normal bowel sounds, Soft and benign, ND/NT Musculoskeletal: No clubbing, No swelling, No tenderness Integumentary: Erythema (right LE) Neurological: Generalized weakness and confusion - Studies Medications List Reviewed: Yes Assessment & Plan - Problems (Diagnosis) (1) Atrial fibrillation with RVR Current Visit: Yes Status: Acute (2) Acute systolic (congestive) heart failure; ejection fraction of 30-35% Current Visit: Yes Status: Acute (3) Anxiety disorder Current Visit: Yes Status: Acute (4) Alzheimer's dementia Current Visit: Yes Status: Acute (5) COPD exacerbation Current Visit: No Status: Acute - Plan Continue with plan of care as mentioned below: 1. Atrial fibrillation with rapid ventricular response; continue with amiodarone drip and anticoagulation; possibly URVASHI with cardioversion tomorrow 2. Acute CHF systolic dysfunction (EF=30-35%); continue with diuretics and Aldactone and continue with medication for rate control; cardiac catheterization in AM 3. COPD; continue with Nebulizer treatments as needed 4. History of Alzheimer's dementia; patient on namenda; resume 5. History of anxiety disorder; anxiolytics as needed 6. GI DVT prophylaxis Discharge Plan: Home Plan to discharge in: Greater than 2 days - Advance Directives Does patient have a Living Will: No Does patient have a Durable POA for Healthcare: No - Code Status/Comfort Care Code Status: Full Code Critical Care: Yes Time Spent Managing PTS Care (In Minutes): 35
[2024-10-11] MEDS ORDERED: HEPA 1000U/500MLS 2,000 UNIT/1,000 ML BAG IV ONE (10:06)
[2024-10-11] MEDS ORDERED: MIDAZOLAM HCL 2 MG/2 ML INJ ONE (10:07)
[2024-10-11] MEDS ORDERED: ATROPINE SULF 1 MG/10 ML SYR IV ONE (10:07)
[2024-10-11] MEDS ORDERED: LIDOCAINE 1% 20 ML MDV ONE (10:07)
[2024-10-11] MEDS ORDERED: FENTANYL CITR 100 MCG/2 ML ONE (10:07)
[2024-10-11] MEDS ORDERED: HEPARIN 5000 UNIT/ML 1 ML VIAL ONE (10:07)
[2024-10-11] MEDS ORDERED: NALOXONE 0.4 MG/ML VIAL ONE (10:29)
[2024-10-11] MEDS ORDERED: FLUMAZENIL 0.1 MG/ML (5 mL VIAL) IV ONE (10:29)
--- NOTE | 2024-10-11 11:34 | P.PN ---
Subjective Date of Service: 10/11/24 Chief Complaint: Palpitation / SOB Subjective: No new changes, No C/O voiced, Tolerating diet, Ambulating, Improving Review of Systems 10-point ROS is otherwise unremarkable Physical Examination - Vital Signs Temperature: 98.0 F Blood Pressure: 132/87 Pulse: 103 Respirations: 19 Pulse Ox (%): 95 - Physical Exam General: Alert, In no apparent distress HEENT: Atraumatic, PERRLA, EOMI Neck: Supple, JVD not distended Respiratory: Normal air movement, Crackles/rales Cardiovascular: Edema, Irregular heart rate/rhythm Gastrointestinal: Normal bowel sounds, No tenderness Musculoskeletal: No tenderness Integumentary: No rashes Neurological: Normal speech, Normal tone, Normal affect Lymphatics: No axilla or inguinal lymphadenopathy - Studies Medications List Reviewed: Yes Assessment And Plan - Current Problems (Diagnosis) (1) Acute on chronic combined systolic (congestive) and diastolic (congestive) heart failure Current Visit: Yes Status: Acute Plan: Coronary angiogram done today and shows normal coronaries. continue diuresis with IV lasix drip at 2.5 mg/hr continue lopressor 25 mg po bid add aldactone 25 mg daily continue to monitor input and output and electrolytes . (2) Afib Current Visit: No Status: Chronic Plan: patient had a recent URVASHI DCCV, presented again with RVR, rate is controlled now, he was discharged on sotalol Amiodarone 200 mg po BID resume Eliquis 5 mg po BID NPO after midnight for possible URVASHI DCCV if HR is not under control. Qualifiers: Atrial fibrillation type: unspecified chronic Qualified Code(s): I48.20 - Chronic atrial fibrillation, unspecified; I48.2 - Chronic atrial fibrillation
[2024-10-11] MEDS: FUROSEMIDE 100 MG in NA CHLORIDE 0.9% 90 ML IV SCH ×2 (12:03→14:40)
[2024-10-11] MEDS ORDERED: FUROSEMIDE 100 MG in NA CHLORIDE 0.9% 90 ML IV SCH (12:27)
[2024-10-11] MEDS ORDERED: HEPARIN/D5W 25,000 UNIT/500 ML BAG IV SCH (13:00)
--- NOTE | 2024-10-11 13:46 | P.PN ---
Subjective Date of Service: 10/11/24 Chief Complaint: Palpitation / SOB Subjective: No chest pain or shortness of breath. No nausea or vomiting. No abdominal pain. No obvious bleeding. Looks comfortable in the bed. Objective: General appearance: Alert and comfortable CVS: Normal S1 and S2 Lungs: Clear to auscultation bilaterally Abdomen: Soft, bowel sounds present, no tenderness Extremities: No lower extremity edema Physical Examination - Vital Signs Temperature: 98.2 F Blood Pressure: 109/67 Pulse: 88 Respirations: 16 Pulse Ox (%): 98 - Studies Medications List Reviewed: Yes Assessment And Plan - Plan 1. Atrial fibrillation with rapid ventricular response; continue with amiodarone and anticoagulation; possibly URVASHI with cardioversion tomorrow 2. Acute CHF systolic dysfunction: continue with diuretics and Aldactone, cardiac catheterization today showed normal coronary arteries 3. COPD; continue with Nebulizer treatments as needed 4. History of Alzheimer's dementia; patient on namenda; resume 5. History of anxiety disorder; anxiolytics as needed Discussed with the patient, discussed with at bedside on patient's phone, discussed with the nursing staff.
[2024-10-11] MEDS: APIXABAN 5 MG TABLET PO SCH (20:18)
[2024-10-11] MEDS ORDERED: APIXABAN 2.5 MG TABLET PO SCH (21:00)
[2024-10-11] MEDS ORDERED: ENOXAPARIN 100 MG/ML SYR SQ SCH (21:00)
[2024-10-12] MEDS: LORazepam 2 MG/ML VIAL IV ONE (02:40)
--- NOTE | 2024-10-12 10:10 | P.PN ---
Subjective Date of Service: 10/12/24 Chief Complaint: Palpitation / SOB Subjective: No new changes, No C/O voiced, Tolerating diet, Ambulating, Improving Review of Systems 10-point ROS is otherwise unremarkable Physical Examination - Vital Signs Temperature: 98.4 F Blood Pressure: 94/65 Pulse: 94 Respirations: 25 Pulse Ox (%): 95 - Physical Exam General: Alert, In no apparent distress HEENT: Atraumatic, PERRLA, EOMI Neck: Supple, JVD not distended Respiratory: Clear to auscultation bilaterally, Normal air movement Cardiovascular: Irregular heart rate/rhythm Gastrointestinal: Normal bowel sounds, No tenderness Musculoskeletal: No tenderness Integumentary: No rashes Neurological: Normal speech, Normal tone, Normal affect Lymphatics: No axilla or inguinal lymphadenopathy - Studies Medications List Reviewed: Yes Assessment And Plan - Current Problems (Diagnosis) (1) Acute on chronic combined systolic (congestive) and diastolic (congestive) heart failure Current Visit: Yes Status: Acute Plan: Coronary angiogram done and shows normal coronaries. continue diuresis with IV lasix drip at 2.5 mg/hr, may switch to lasix 40 mg po BID tomorrow continue lopressor 25 mg po bid add aldactone 25 mg daily continue to monitor input and output and electrolytes . (2) Afib Current Visit: No Status: Chronic Plan: patient had a recent URVASHI DCCV, presented again with RVR, rate is controlled now, he was discharged on sotalol Amiodarone 200 mg po BID Eliquis 5 mg po BID URVASHI DCCV today. Qualifiers: Atrial fibrillation type: unspecified chronic Qualified Code(s): I48.20 - Chronic atrial fibrillation, unspecified; I48.2 - Chronic atrial fibrillation
[2024-10-12] MEDS ORDERED: propofoL 200 MG/20 ML VIAL IV ONE (10:48)
[2024-10-12] MEDS ORDERED: LIDOCAINE 1% MPF 5 ML VIAL ONE (10:48)
[2024-10-12] MEDS ORDERED: LORazepam 2 MG/ML VIAL IV SCH (11:00)
[2024-10-12] MEDS: FUROSEMIDE 100 MG in NA CHLORIDE 0.9% 90 ML IV SCH (12:30)
--- NOTE | 2024-10-12 13:01 | P.PN ---
Subjective Date of Service: 10/12/24 Chief Complaint: Palpitation / SOB Subjective: No chest pain or shortness of breath. No nausea or vomiting. No abdominal pain. No obvious bleeding. Looks comfortable in the bed. Just back from cardioversion Objective: General appearance: Alert and comfortable CVS: Normal S1 and S2 Lungs: Clear to auscultation bilaterally Abdomen: Soft, bowel sounds present, no tenderness Extremities: No lower extremity edema Physical Examination - Vital Signs Temperature: 98.4 F Blood Pressure: 94/65 Pulse: 94 Respirations: 25 Pulse Ox (%): 95 - Studies Medications List Reviewed: Yes Assessment And Plan - Plan 1. Atrial fibrillation with rapid ventricular response; continue with amiodarone and anticoagulation; had cardioversion today 2. Acute CHF systolic dysfunction: continue with diuretics and Aldactone, cardiac catheterization 10/11 showed normal coronary arteries 3. COPD; continue with Nebulizer treatments as needed 4. History of Alzheimer's dementia; patient on namenda 5. History of anxiety disorder; anxiolytics as needed Discussed with the patient, discussed with the nursing staff.
[2024-10-12 13:49] LABS: Absolute Eosinophils 0.3 K/uL (0-0.5); Absolute Lymphocytes (CBC) 0.7 K/uL (0.7-4.9); Absolute Monocytes 0.7 K/uL (0.1-1.3); Absolute Neutrophil 8.9 K/uL (1.8-8.0); Basophils % 0.3 % (0-1.3); Eosinophils % 2.5 % (0-4.4); Hematocrit 51.8 % (39.6-49.0); Hemoglobin 17.2 g/dL (13.6-17.9); Lymphocytes % 6.3 % (15.3-44.8); MCH 33.3 pg (27.0-35.0); MCHC 33.2 g/dL (32.0-36.0); MCV 100.5 fL (80-100); Monocytes % 6.2 % (3.3-12.3); Neutrophils % 84.7 % (41.7-73.7); Platelets 239 thou/uL (152-406); RBC Red Blood Cell Count 5.15 M/uL (4.33-5.43); Red Cell Distribution Width 14.2 % (12.1-15.2)
[2024-10-12 14:07] LABS: Anion Gap 8.3 mEq/L (5.0-15.0); Potassium 4.3 mEq/L (3.5-5.1)
[2024-10-12] MEDS: LORazepam 2 MG/ML VIAL IV PRN (15:08)
[2024-10-13 06:20] LABS: Absolute Eosinophils 0.2 K/uL (0-0.5); Absolute Lymphocytes (CBC) 0.7 K/uL (0.7-4.9); Absolute Monocytes 0.9 K/uL (0.1-1.3); Absolute Neutrophil 10.3 K/uL (1.8-8.0); Basophils % 0.3 % (0-1.3); Eosinophils % 1.4 % (0-4.4); Hematocrit 51.6 % (39.6-49.0); Hemoglobin 17.6 g/dL (13.6-17.9); Lymphocytes % 5.6 % (15.3-44.8); MCH 33.9 pg (27.0-35.0); MCV 99.7 fL (80-100); MPV 9.2 fL (7.6-11.3); Monocytes % 7.1 % (3.3-12.3); Neutrophils % 85.6 % (41.7-73.7); Platelets 221 thou/uL (152-406); RBC Red Blood Cell Count 5.18 M/uL (4.33-5.43); Red Cell Distribution Width 14.1 % (12.1-15.2)
[2024-10-13 06:50] LABS: Anion Gap 12.3 mEq/L (5.0-15.0)
[2024-10-13 06:58] LABS: Potassium 4.3 mEq/L (3.5-5.1)
--- NOTE | 2024-10-13 07:24 | TEE ---
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 NORMAL LEFT ATRIAL APPENDAGE, NO THROMBUS TECHNOLOGIST: GEOFFREY YOST
[2024-10-13 09:26] LABS: Differential Total Cells Count 100; Lymphocytes 5 % (15-42); Monocytes 5 % (0-10); Segmented Neutrophils 85 % (40-80)
[2024-10-13 09:27] LABS: Blood Morphology Comment NOT SEEN (NOT SEEN); Eosinophils 3 % (0-3); Metamyelocytes 2 % (0-0); Platelet Estimate ADEQ
--- NOTE | 2024-10-13 10:34 | P.PN ---
Subjective Date of Service: 10/13/24 Chief Complaint: Palpitation / SOB Subjective: No new changes, No C/O voiced, Tolerating diet, Ambulating, Improving Review of Systems 10-point ROS is otherwise unremarkable Physical Examination - Vital Signs Temperature: 97.7 F Blood Pressure: 124/73 Pulse: 73 Respirations: 22 Pulse Ox (%): 98 - Physical Exam General: Alert, In no apparent distress HEENT: Atraumatic, PERRLA, EOMI Neck: Supple, JVD not distended Respiratory: Clear to auscultation bilaterally, Normal air movement Cardiovascular: Regular rate/rhythm, Normal S1 S2 Gastrointestinal: Normal bowel sounds, No tenderness Musculoskeletal: No tenderness Integumentary: No rashes Neurological: Normal speech, Normal tone, Normal affect Lymphatics: No axilla or inguinal lymphadenopathy - Studies Medications List Reviewed: Yes Assessment And Plan - Current Problems (Diagnosis) (1) Acute on chronic combined systolic (congestive) and diastolic (congestive) heart failure Current Visit: Yes Status: Acute Plan: Coronary angiogram done and shows normal coronaries. switch to lasix 40 mg po BID and continue on discharge for 1 week then cut back to lasix 40 mg daily continue lopressor 25 mg po bid add aldactone 25 mg daily add Entresto 24 mg po BID add Farxiga 10 mg daily on discharge follow up with cardiology and primary care. continue to monitor input and output and electrolytes . (2) Afib Current Visit: No Status: Chronic Plan: patient had a recent URVASHI DCCV, presented again with RVR, rate is controlled now, he was discharged on sotalol, presented with RVR so switched to amiodarone and another URVASHI DCCV was done Amiodarone 200 mg po BID lopressor 25 mg po BID Eliquis 5 mg po BID Qualifiers: Atrial fibrillation type: unspecified chronic Qualified Code(s): I48.20 - Chronic atrial fibrillation, unspecified; I48.2 - Chronic atrial fibrillation
--- NOTE | 2024-10-13 12:27 | P.PN ---
Subjective Date of Service: 10/13/24 Chief Complaint: Palpitation / SOB Subjective: No chest pain or shortness of breath. No nausea or vomiting. No abdominal pain. No obvious bleeding. Looks comfortable in the bed. Objective: General appearance: Alert and comfortable CVS: Normal S1 and S2 Lungs: Clear to auscultation bilaterally Abdomen: Soft, bowel sounds present, no tenderness Extremities: No lower extremity edema Physical Examination - Vital Signs Temperature: 97.7 F Blood Pressure: 130/64 Pulse: 81 Respirations: 28 Pulse Ox (%): 93 - Studies Medications List Reviewed: Yes Assessment And Plan - Plan 1. Atrial fibrillation with rapid ventricular response; continue with amiodarone and anticoagulation; had cardioversion 10/12, sinus now 2. Acute CHF systolic dysfunction: continue with diuretics and Aldactone, cardiac catheterization 10/11 showed normal coronary arteries -add entresto as per cardiologyyvonne at the time of DC 3. COPD; continue with Nebulizer treatments as needed 4. History of Alzheimer's dementia; patient on namenda 5. History of anxiety disorder; anxiolytics as needed Discussed with the patient, discussed with the nursing staff. d/w CM team. Tx out of ICU. ?home tomorrow
[2024-10-13] MEDS: SPIRONOLACTONE 25 MG TABLET PO SCH (13:01)
[2024-10-13] MEDS: FUROSEMIDE 40 MG TABLET PO SCH (16:33)
[2024-10-13] MEDS: SACUBITRIL/VALSARTAN 24/26 MG TAB PO SCH (20:46)
--- NOTE | 2024-10-13 21:05 | OP ---
Date of Procedure: 10/11/2024 Surgeon: Ulices Garner Procedure Performed: Selective coronary angiogram. Indication For Procedure: Systolic heart failure. Complications: None. Estimated Blood Loss: Less than 50 cc. Access: Right radial, closed by TR band. Sedation Time: 20 minutes with 1 of Versed and 25 fentanyl. Description Of Procedure: After risks, benefits, and alternatives were explained to the patient, the patient agreed to proceed with procedure and signed informed consent. The patient was brought back to the concrete laborer, prepped and draped in sterile fashion. Time-out was performed. Sedation was admini stered. Next, right radial access was obtained using ultrasound-guided micropuncture technique. Tig er 4 catheter was advanced over a J-wire to the aortic root. Selective angiogram was done using the same catheter. At the end of procedure, catheter was removed over a J-wire. Sheath was removed. TR band was applied. Hemostasis achieved. The patient was moved back to recovery in stable condition. Findings: 1. Left main: Normal. 2. LAD: Normal. 3. Left circumflex: Normal. 4. RCA: Normal. Assessment: Normal coronaries. Plan: Continue medical management. GARCÍA/MODL Voice ID: [id number] Report ID: [id number]
[2024-10-13] MEDS ORDERED: METOPROLOL TARTRATE 5 MG/5 ML INJ IV PRN (21:14)
[2024-10-13] MEDS: AMIODARONE HCL 150 MG in D5W 100 ML IV STA ×2 (21:36→21:41)
--- NOTE | 2024-10-13 21:54 | OP ---
Date of Procedure: 10/12/2024 Surgeon: Ulices Garner Procedure Performed: Synchronized transesophageal echocardiogram cardioversion. Indication For Procedure: Atrial fibrillation. Complications: None. Estimated Blood Loss: None. Sedation: Done by Anesthesia team. Description Of Procedure: After risks, benefits, and alternatives were explained to the patient, the patient agreed to proceed with procedure and signed informed consent. The patient was brought back to the OR. Time-out was performed. Sedation was administered by Anesthesia team. URVASHI probe was ins erted, images were obtained, and then URVASHI probe was out. Synchronized cardioversion was done with 25 0 joules. The patient converted back into sinus rhythm. The patient was moved back to recovery in s table condition. Assessment: Atrial fibrillation, status post successful transesophageal echocardiogram cardioversion . Plan: Continue amiodarone 200 mg p.o. b.i.d. and continue Eliquis 5 mg p.o. b.i.d. RICKY/BERT Voice ID: [id number] Report ID: [id number]
[2024-10-13] MEDS ORDERED: AMIODARONE HCL 450 MG in D5W 241 ML IV SCH (22:00)
[2024-10-13] MEDS ORDERED: AMIODARONE IN DEXTROSE,ISO-OSM 360 MG/200 ML BAG IV SCH (22:00)
[2024-10-13] MEDS: AMIODARONE IN DEXTROSE,ISO-OSM 360 MG/200 ML BAG IV SCH (22:34)
[2024-10-14] MEDS: ALBUMIN HUMAN 25% 200 ML IV ONE (02:48)
[2024-10-14] MEDS: ALBUMIN HUMAN 25% 100 ML IV ONE ×3 (03:04→23:45)
[2024-10-14] MEDS ORDERED: AMIODARONE IN DEXTROSE,ISO-OSM 360 MG/200 ML BAG IV SCH (04:00)
[2024-10-14] MEDS: AMIODARONE IN DEXTROSE,ISO-OSM 360 MG/200 ML BAG IV SCH (04:15)
[2024-10-14] MEDS: METOPROLOL TAR 25 MG TAB PO SCH ×2 (06:00→18:20)
[2024-10-14 06:17] LABS: Absolute Eosinophils 0.1 K/uL (0-0.5); Absolute Lymphocytes (CBC) 0.7 K/uL (0.7-4.9); Absolute Monocytes 0.9 K/uL (0.1-1.3); Absolute Neutrophil 10.2 K/uL (1.8-8.0); Basophils % 0.3 % (0-1.3); Eosinophils % 0.9 % (0-4.4); Hemoglobin 15.1 g/dL (13.6-17.9); Lymphocytes % 5.5 % (15.3-44.8); MCH 33.4 pg (27.0-35.0); MCHC 33.5 g/dL (32.0-36.0); MCV 99.5 fL (80-100); MPV 9.3 fL (7.6-11.3); Monocytes % 7.5 % (3.3-12.3); Neutrophils % 85.8 % (41.7-73.7); Platelets 193 thou/uL (152-406); RBC Red Blood Cell Count 4.53 M/uL (4.33-5.43)
[2024-10-14 06:44] LABS: Anion Gap 7.4 mEq/L (5.0-15.0); Potassium 3.4 mEq/L (3.5-5.1)
[2024-10-14] MEDS: POTASSIUM CL SA 10 MEQ TAB PO ONE (08:41)
[2024-10-14] MEDS: KCL 20 MEQ/100 mL IVPB 20 MEQ/100 ML BAG IV SCH (09:28)
--- NOTE | 2024-10-14 10:01 | RAD REPORT ---
EXAMINATION: ONE VIEW CHEST XR CLINICAL INDICATION: Male, 73 years old.,chf TECHNIQUE: Frontal chest projection is submitted. Examination is limited by patient positioning and t echnique. COMPARISON: 10/08/2024 FINDINGS: The lungs are grossly clear although suboptimal inspiratory effort somewhat limits evaluation. No pn eumothorax or sizable effusion. The heart is normal in size. Mediastinal contours are unremarkable. IMPRESSION: No acute intrathoracic abnormalities.
--- NOTE | 2024-10-14 13:08 | P.PN ---
Subjective Date of Service: 10/14/24 Chief Complaint: Palpitation / SOB Subjective: No chest pain or shortness of breath. No nausea or vomiting. No abdominal pain. No obvious bleeding. Looks comfortable in the bed. Went into afib with RVR again, on amio drip, BP soft Objective: General appearance: Alert and comfortable CVS: Normal S1 and S2 Lungs: Clear to auscultation bilaterally Abdomen: Soft, bowel sounds present, no tenderness Extremities: No lower extremity edema Physical Examination - Vital Signs Temperature: 97.2 F Blood Pressure: 108/79 Pulse: 118 Respirations: 30 Pulse Ox (%): 97 - Studies Medications List Reviewed: Yes Assessment And Plan - Plan 1. Atrial fibrillation with rapid ventricular response; continue with amiodarone and anticoagulation; had cardioversion 10/12, sinus, back to afib again -cardiologyto eval further 2. Acute CHF systolic dysfunction: had cardiac catheterization 10/11 showed normal coronary arteries -add entresto and aldactobe as per cardiology, [facility] at the time of DC -BP low this AM, all diuretics and heart meds stopped 3. COPD; continue with Nebulizer treatments as needed 4. History of Alzheimer's dementia; patient on namenda 5. History of anxiety disorder; anxiolytics as needed Discussed with the patient, discussed with the nursing staff. d/w CM team. Not ready for DC yet
[2024-10-14] MEDS: NA CHLORIDE 0.9% 500 ML ONE (13:43)
[2024-10-14] MEDS ORDERED: LIDOCAINE 1% MPF 5 ML VIAL ONE (14:05)
[2024-10-14] MEDS ORDERED: propofoL 200 MG/20 ML VIAL IV ONE (14:06)
[2024-10-14] MEDS ORDERED: AMIODARONE HCL 450 MG in D5W 241 ML IV SCH (15:00)
--- NOTE | 2024-10-14 18:35 | PN ---
Date of Progress Note: 10/14/2024 Subjective: The patient went back into atrial fibrillation and rapid ventricular response with reloa ded with amiodarone and this still not able to control his heart rate and he had URVASHI cardioversion fe w days back and there was no left atrial appendage thrombus and has been on anticoagulant without int erruption. Review of Systems: Positive shortness of breath and palpitations. No nausea, vomiting, diarrhea. No abdominal pain. N o dysuria or urgency. All other systems reviewed are negative. Physical Examination: Vital Signs: Reviewed. Head and Neck: Pupils are equal, reactive to light. Intact eye movements. No JVD. No cervical lym phadenopathy. Neck is supple. Thyroid is not enlarged. Lungs: Clear to auscultation bilaterally. No rhonchi, wheezing, or crackles. No accessory muscle us e. Heart: Irregularly irregular. No extra sounds. Abdomen: Soft, nontender. Bowel sounds positive. No organomegaly. No masses or hernia. No rigidi ty or rebound. Extremities: No edema, clubbing, or cyanosis. Intact pulses. Skin: No rash nodes. Neurologic: Alert, awake, oriented x3. No acute focal deficits appreciated. Investigations: Labs reviewed. Assessment And Recommendations: 1. Acute on chronic diastolic heart failure exacerbation with being in atrial fibrillation with rapid ventricular response. It is a very hard to manage it. Continue Lasix and Aldactone. Monitor BUN, creatinine, electrolytes. 2. Atrial fibrillation with rapid ventricular response. Again re-loaded with amiodarone. Continue L opressor and Eliquis and perform cardioversion today. There is no need for URVASHI, had done 2 days ago and he has been on Eliquis since. 3. Hypoxic respiratory failure due to congestive heart failure exacerbation. Continue diuretics and try to get the patient in sinus rhythm with cardioversion as above. SR/MODL Voice ID: [id number] Report ID: [id number]
[2024-10-14] MEDS: AMIODARONE HCL 200 MG TAB PO SCH (20:08)
[2024-10-14] MEDS: NA CHLORIDE 0.9% 100 ML ONE (21:59)
[2024-10-14] MEDS: KCL 20 MEQ/100 mL IVPB 20 MEQ/100 ML BAG IV ONE (21:59)
--- NOTE | 2024-10-14 23:51 | OP ---
Date of Procedure: 10/14/2024 Surgeon: ROMARIO CANALES Procedure Performed: Electrical cardioversion. Indication: Atrial fibrillation with rapid ventricular response and inability to control rate. Description Of Procedure: After risks, benefits, and alternatives were explained, patient agreed to procedure. He was brought into cystoscopy room. Appropriate time-out was performed. This patient h ad a URVASHI about 3 days ago and there was no left atrial appendage or thrombus at that time, and he has been on Eliquis since. After administration of propofol and deep sedation, a synchronized 300 joule electrical cardioversion was done. The first time, he did not convert to sinus rhythm. The second time, he did not convert to the sinus rhythm. Then, third time, 300 joule synchronized an d he went to sinus rhythm briefly for about 5 minutes, then he went back to atrial fibrillation. Conclusion: Failed electrical cardioversion. Recommendations: Inpatient transfer for atrial fibrillation ablation. It has been very difficult to control his heart rate. SR/MODL Voice ID: [id number] Report ID: [id number]
[2024-10-15 04:56] VITALS: BMI 32.3
[2024-10-15 08:09] VITALS: TEMP 98.4
[2024-10-15 08:24] VITALS: O2SAT 99
[2024-10-15 09:18] LABS: Absolute Eosinophils 0.3 K/uL (0-0.5); Absolute Lymphocytes (CBC) 0.9 K/uL (0.7-4.9); Absolute Neutrophil 8.2 K/uL (1.8-8.0); Anion Gap 8.1 mEq/L (5.0-15.0); Basophils % 0.3 % (0-1.3); Eosinophils % 2.4 % (0-4.4); Hemoglobin 17.7 g/dL (13.6-17.9); Lymphocytes % 8.9 % (15.3-44.8); MCH 33.5 pg (27.0-35.0); MCHC 33.4 g/dL (32.0-36.0); MCV 100.5 fL (80-100); MPV 9.7 fL (7.6-11.3); Magnesium 2.4 mg/dL (1.6-2.4); Monocytes % 9.4 % (3.3-12.3); Nucleated Red Blood Cells % 0.1 % (0-0); Phosphorus 3.2 mg/dL (2.5-4.9); Platelets 211 thou/uL (152-406); Potassium 4.1 mEq/L (3.5-5.1); RBC Red Blood Cell Count 5.27 M/uL (4.33-5.43); Red Cell Distribution Width 14.4 % (12.1-15.2)
[2024-10-15 11:29] VITALS: BP 117/63
--- NOTE | 2024-10-15 11:41 | P.DS ---
Admission Date: 10/07/24 Discharge Date: 10/15/24 Disposition: TRANSFER TO [facility] Discharge Condition: SERIOUS Reason for Admission: Palpitation / SOB Hospital Course: 1. Atrial fibrillation with rapid ventricular response; continue with amiodarone and anticoagulation; had cardioversion 10/12, sinus, back to afib again, cardioversion again on 10/14 which was unsuccessful -Cardiology recommending to transfer to higher level of care facility. 2. Acute CHF systolic dysfunction: had cardiac catheterization 10/11 showed normal coronary arteries -add entresto and aldactone as per cardiology, yvonne at the time of DC -BP low, all diuretics and heart meds stopped 3. COPD; continue with Nebulizer treatments as needed 4. History of Alzheimer's dementia; patient on namenda 5. History of anxiety disorder; anxiolytics as needed 6. ?UTI: Culture came back as positive this morning with Enterococcus, sensitive to amoxicillin. Started on antibiotics. 73-year-old patient admitted with atrial fibrillation with rapid ventricular rate, initially he was on amiodarone drip, cardiology was following, he had cardioversion, he was back into sinus couple days back, plan was to discharge if he stays in sinus, yesterday night he went into A-fib again, he was on amnio drip, his blood pressure dropped, all his heart medications were held, cardiology tried to cardiovert him again yesterday but it was unsuccessful, due to recurrent A-fib with RVR, failed cardioversion twice, cardiology recommending him to transfer to a higher level of care facility where EP consult is available for consideration of ablation, I discussed with optics engineer from [facility] yesterday, discussed with the hospitalist Dr. Ye this morning, patient was accepted for transfer. I updated about the transfer last night. Subjective: No chest pain or shortness of breath. No nausea or vomiting. No abdominal pain. No obvious bleeding. Looks comfortable in the bed. Objective: General appearance: Alert and comfortable CVS: Normal S1 and S2 Lungs: Clear to auscultation bilaterally Abdomen: Soft, bowel sounds present, no tenderness Extremities: No lower extremity edema Vital Signs/Physical Exam: Temp Pulse Resp BP Pulse Ox 98.4 F 99 H 15 117/63 100 10/15/24 07:00 10/15/24 11:00 10/15/24 11:00 10/15/24 11:00 10/15/24 11:00 Laboratory Data at Discharge: WBC 10.40 thou/uL (4.3-10.9) 10/15/24 08:35 Hgb 17.7 g/dL (13.6-17.9) D 10/15/24 08:35 Hct 53.0 % (39.6-49.0) H 10/15/24 08:35 Plt Count 211 thou/uL (152-406) 10/15/24 08:35 PT 17.4 SECONDS (10-13.0) H 10/07/24 19:08 INR 1.56 10/07/24 19:08 APTT Cancelled 10/11/24 15:00 Sodium 137 mEq/L (136-145) 10/15/24 08:35 Potassium 4.1 mEq/L (3.5-5.1) 10/15/24 08:35 BUN 28 mg/dL (7-18) H 10/15/24 08:35 Creatinine 1.09 mg/dL (0.70-1.30) 10/15/24 08:35 Glucose 106 mg/dL (74-106) 10/15/24 08:35 Phosphorus 3.2 mg/dL (2.5-4.9) 10/15/24 08:35 Magnesium 2.4 mg/dL (1.6-2.4) 10/15/24 08:35 Total Bilirubin 1.1 mg/dL (0.2-1.0) H 10/09/24 05:05 AST 17 U/L (15-37) 10/09/24 05:05 ALT 33 U/L (16-61) 10/09/24 05:05 Alkaline Phosphatase 64 U/L (45-117) 10/09/24 05:05 Home Medications: Metoprolol Tartrate [Lopressor*] 25 mg PO [id number] 07/10/23 Aspirin [Aspirin EC 81 MG] 81 tab PO BEDTIME 12/08/23 Levothyroxine [Synthroid*] 50 mcg PO [id number] 12/08/23 Memantine HCl 5 mg PO DAILY 12/08/23 Apixaban [Eliquis] 5 mg PO BID 30 Days #60 tab 10/05/24 Benzonatate [Tessalon Perle*] 100 mg PO TID PRN 5 Days #15 cap 10/05/24 Clopidogrel Bisulfate [Plavix*] 75 mg PO DAILY 30 Days #30 tab 10/05/24 Furosemide [Lasix] 40 mg PO DAILY 30 Days #30 tab 10/05/24 Guaifenesin [Mucinex] 600 mg PO BID 15 Days #30 tab 10/05/24 Mometasone/Formoterol [Dulera 200 Mcg/5 Mcg Inhaler] 2 puff IH BID 30 Days #1 inhaler 10/05/24 Sotalol HCl [Betapace*] 80 mg PO BID 6AM 6PM 30 Days #60 tab 10/05/24 predniSONE [Prednisone*] 20 mg PO BID 5 Days #10 tab 10/05/24 Followup: EMILIANO BOBBY MD [Primary Care Provider] - Time spent managing pt's care (in minutes): 34
[2024-10-15] MEDS ORDERED: AMOXICILLIN TRIHYDR 250 MG CAP PO SCH (14:00)
--- NOTE | 2024-10-17 11:28 | EKG ---
Test Date: 2024-10-14 Test Time: 14:17:25 District Superintendent: MAY MEASUREMENT RESULTS: Intervals: Rate: 102 [place]: QRSD: 94 QT: 412 QTc: 536 [place]: P: MI: QRS: 261 T: 70 INTERPRETIVE STATEMENTS: Atrial fibrillation with rapid ventricular response Right superior axis deviation Pulmonary disease pattern ST & T wave abnormality, consider anterior ischemia or digitalis effect Abnormal ECG Compared to ECG 10/13/2024 13:14:35 No significant changes Electronically Signed On 10-17-24 11:22:08 CDT by Ulices Garner
--- NOTE | 2024-10-17 11:34 | EKG ---
Test Date: 2024-10-13 Test Time: 13:14:35 Loom Changer: EMERY MEASUREMENT RESULTS: Intervals: Rate: 118 [place]: QRSD: 96 QT: 344 QTc: 482 [place]: P: [place]: QRS: 256 T: -82 INTERPRETIVE STATEMENTS: Atrial fibrillation with rapid ventricular response Right superior axis deviation Pulmonary disease pattern ST & T wave abnormality, consider lateral ischemia or digitalis effect Abnormal ECG Compared to ECG 10/12/2024 11:18:34 Right superior axis now present Sinus rhythm no longer present Left-axis deviation no longer present ST (T wave) deviation still present Possible ischemia still present Electronically Signed On 10-17-24 11:23:55 CDT by Ulices Garner
--- NOTE | 2024-10-17 11:37 | EKG ---
Test Date: 2024-10-12 Test Time: 11:18:34 Wildlife Science Professor: MAY MEASUREMENT RESULTS: Intervals: Rate: 65 MA: 180 QRSD: 102 QT: 404 QTc: 420 [place]: P: 60 MA: 180 QRS: -89 T: 37 INTERPRETIVE STATEMENTS: Normal sinus rhythm Left axis deviation Pulmonary disease pattern ST & T wave abnormality, consider anterolateral ischemia Abnormal ECG Compared to ECG 10/07/2024 18:18:50 Left-axis deviation now present Atrial fibrillation no longer present Right superior axis no longer present ST (T wave) deviation still present Possible ischemia still present Electronically Signed On 10-17-24 11:25:01 CDT by Ulices Garner
== END 2024-10-15 11:55 | disposition short-term general hospital (02) | DRG 286 ==
LOC: ER 18:06 → ERHOLD 20:46 → 3RD-ICU 10-08 05:45
PROVIDERS: ADMIT Family Medicine; ATTEND Hospitalist
PROC: B2111ZZ Fluoroscopy of Multiple Coronary Arteries using Low Osmolar Contrast (ICD-10-PCS; principal; 2024-10-11)
PROC: 4A023N7 Measurement of Cardiac Sampling and Pressure, Left Heart, Percutaneous Approach (ICD-10-PCS; 2024-10-11)
PROC: 5A2204Z Restoration of Cardiac Rhythm, Single (ICD-10-PCS; 2024-10-11)
PROC: B24BZZ4 Ultrasonography of Heart with Aorta, Transesophageal (ICD-10-PCS; 2024-10-12)
PROC: 5A2204Z Restoration of Cardiac Rhythm, Single (ICD-10-PCS; 2024-10-14)
DX: I48.20 Chronic atrial fibrillation, unspecified (principal); I50.21 Acute systolic (congestive) heart failure; J96.91 Respiratory failure, unspecified with hypoxia; F02.811 Dementia in other diseases classified elsewhere, unspecified severity, with agitation; F02.84 Dementia in other diseases classified elsewhere, unspecified severity, with anxiety; J44.1 Chronic obstructive pulmonary disease with (acute) exacerbation; L03.115 Cellulitis of right lower limb; N39.0 Urinary tract infection, site not specified; I11.0 Hypertensive heart disease with heart failure; G30.9 Alzheimer's disease, unspecified; E03.9 Hypothyroidism, unspecified; I95.9 Hypotension, unspecified; I73.9 Peripheral vascular disease, unspecified; J45.909 Unspecified asthma, uncomplicated; B95.2 Enterococcus as the cause of diseases classified elsewhere; Z11.52 Encounter for screening for COVID-19; Z86.16 Personal history of COVID-19; Z79.01 Long term (current) use of anticoagulants; Z79.82 Long term (current) use of aspirin; Z79.02 Long term (current) use of antithrombotics/antiplatelets; Z79.890 Hormone replacement therapy; Z79.899 Other long term (current) drug therapy
CPT/HCPCS: 36415; 71045; 76937; 80048; 80053; 80076; 81001; 83735; 83880; 84100; 84132; 84484; 85025; 85610; 87077; 87086; 87088; 87186; 87428; 92960; 93005; 93312; 93458; 94640; 94760; 99152; 99153; 99285; C1893; J0282; J0461; J1160; J1644; J1650; J1940; J2003; J2250; J2310; J2704; J3010; J3480; J7030; J7040; J7060; J7613; J7644; P9047; Q9967